=== PATIENT | female | born 1985 | race Caucasian/White ===

== ENCOUNTER → 2016-08-12 | Outpatient (REF) | payer OTHER, MEDICAID ==
[2016-08-12 12:43] LABS: BASO % 0.5 % (0.0-1.0); EOS # 0.2 K/mm3 (0.0-0.50); EOS % 2.5 % (0.0-3.0); LARGE UNSTAINED CELL # 0.1 K/mm3 (0.0-0.4); LARGE UNSTAINED CELL % 0.9 % (0.0-4.0); LYMPH # 1.7 K/mm3 (1.5-4.5); LYMPH % 16.7 % (24.0-44.0); MEAN CORPUSCULAR HEMOGLOBIN 29.5 pg (27.0-33.0); MEAN CORPUSCULAR HGB CONC 32.9 g/dl (32.0-36.5); MEAN CORPUSCULAR VOLUME 89.7 fl (80.0-96.0); MONO # 0.7 K/mm3 (0.0-0.8); MONO % 7.3 % (0.0-5.0); NEUTROPHILS % 72.1 % (36.0-66.0); PLATELET COUNT, AUTOMATED 251 k/mm3 (150-450); RED CELL DISTRIBUTION WIDTH 12.3 % (11.5-14.5); WHITE BLOOD COUNT 9.7 K/mm3 (4.0-10.0)
[2016-08-12 12:46] LABS: ALBUMIN 4.2 GM/DL (3.2-5.2); ALBUMIN/GLOBULIN RATIO 1.24 (1.00-1.93); ALKALINE PHOSPHATASE 77 U/L (45-117); ALT/SGPT 35 U/L (12-78); ANION GAP 8 MEQ/L (8-16); AST/SGOT 24 U/L (15-37); BILIRUBIN,TOTAL 0.2 MG/DL (0.2-1.0); BLOOD UREA NITROGEN 12 MG/DL (7-18); CALCIUM LEVEL 8.8 MG/DL (8.5-10.1); CARBON DIOXIDE LEVEL 27 MEQ/L (21-32); CHLORIDE LEVEL 104 MEQ/L (98-107); CHOLESTEROL LEVEL 205 MG/DL (<200); CREATININE FOR GFR 1.09 MG/DL (0.55-1.02); FREE T4 0.99 NG/DL (0.76-1.46); GLOMERULAR FILTRATION RATE > 60.0 (>60); GLUCOSE, FASTING 88 MG/DL (70-105); POTASSIUM SERUM 4.2 MEQ/L (3.5-5.1); SODIUM LEVEL 139 MEQ/L (136-145); TOTAL PROTEIN 7.6 GM/DL (6.4-8.2); TRIGLYCERIDES LEVEL 160 MG/DL (<150)
== END ==
LOC: M SFHCADAM 08:57
PROVIDERS: ATTEND Family Medicine
DX: R53.83 Other fatigue (principal); R73.01 Impaired fasting glucose; F32.9 Major depressive disorder, single episode, unspecified

== ENCOUNTER → 2017-08-20 | Outpatient (REF) | payer OTHER | LOC: M LAB REF 12:31 | DX: J02.9 Acute pharyngitis, unspecified (principal) ==

== ENCOUNTER 2017-11-14 10:43 | Emergency (ER) | payer OTHER, MEDICAID | END 2017-11-14 11:24 | disposition home or self-care (01) | LOC: M ED 10:43 | DX: S90.562A Insect bite (nonvenomous), left ankle, initial encounter (principal); W57.XXXA Bitten or stung by nonvenomous insect and other nonvenomous arthropods, initial encounter; Y92.099 Unspecified place in other non-institutional residence as the place of occurrence of the external cause; Y93.9 Activity, unspecified; Y99.9 Unspecified external cause status; J45.909 Unspecified asthma, uncomplicated; E28.2 Polycystic ovarian syndrome; Z72.0 Tobacco use; Z79.899 Other long term (current) drug therapy; Z88.8 Allergy status to other drugs, medicaments and biological substances | CPT/HCPCS: 99282 ==

== ENCOUNTER 2017-11-26 00:47 | Emergency (ER) | payer OTHER | END 2017-11-26 01:06 | disposition left against medical advice (07) | LOC: M ED 00:47 | DX: Z53.29 Procedure and treatment not carried out because of patient's decision for other reasons (principal) ==

== ENCOUNTER → 2017-12-01 | Outpatient (CLI) | payer OTHER, MEDICAID | LOC: M ADAMS 17:57 | DX: M25.571 Pain in right ankle and joints of right foot (principal) | CPT/HCPCS: 73610 ==

== ENCOUNTER → 2017-12-16 | Outpatient (CLI) | payer OTHER | LOC: M RAD 09:08 | DX: R10.11 Right upper quadrant pain (principal) | CPT/HCPCS: 76705 ==

== ENCOUNTER → 2017-12-29 | Outpatient (CLI) | payer OTHER, MEDICAID | LOC: M ADAMS 11:12 | DX: R05 Cough (principal) | CPT/HCPCS: 71046 ==

== ENCOUNTER → 2017-12-29 | Outpatient (REF) | payer OTHER, MEDICAID ==
[2017-12-29 12:36] LABS: BASO # 0.1 10^3/uL (0.0-0.2); BASO % 0.9 % (0.0-1.0); EOS # 0.3 10^3/uL (0.0-0.50); EOS % 2.9 % (0.0-3.0); HEMATOCRIT 39.7 % (36.0-47.0); HEMOGLOBIN 13.1 g/dl (12.0-15.5); IMMATURE GRANULOCYTE % 0.3 % (0-3.0); LYMPH # 2.4 10^3/uL (1.5-4.5); LYMPH % 27.2 % (24.0-44.0); MEAN CORPUSCULAR HEMOGLOBIN 29.3 pg (27.0-33.0); MEAN CORPUSCULAR VOLUME 88.8 fl (80.0-96.0); MONO # 0.6 10^3/uL (0.0-0.8); MONO % 6.6 % (0.0-5.0); NEUTROPHILS # 5.4 10^3/uL (1.8-7.7); NEUTROPHILS % 62.1 % (36.0-66.0); PLATELET COUNT, AUTOMATED 264 10^3/uL (150-450); RED BLOOD COUNT 4.47 10^6/uL (4.00-5.40); RED CELL DISTRIBUTION WIDTH 12.4 % (11.5-14.5); WHITE BLOOD COUNT 8.7 10^3/uL (4.0-10.0)
[2017-12-29 13:01] LABS: ALBUMIN 3.7 GM/DL (3.2-5.2); ALBUMIN/GLOBULIN RATIO 1.06 (1.00-1.93); ALKALINE PHOSPHATASE 62 U/L (45-117); ALT/SGPT 41 U/L (12-78); AMYLASE 48 U/L (25-115); ANION GAP 7 MEQ/L (8-16); AST/SGOT 22 U/L (7-37); BILIRUBIN,TOTAL 0.3 MG/DL (0.2-1.0); BLOOD UREA NITROGEN 11 MG/DL (7-18); CALCIUM LEVEL 8.7 MG/DL (8.5-10.1); CARBON DIOXIDE LEVEL 28 MEQ/L (21-32); CHLORIDE LEVEL 107 MEQ/L (98-107); CREATININE FOR GFR 1.01 MG/DL (0.55-1.30); GLOMERULAR FILTRATION RATE > 60.0 (>60); GLUCOSE, FASTING 87 MG/DL (70-100); LIPASE 116 U/L (73-393); POTASSIUM SERUM 4.1 MEQ/L (3.5-5.1); SODIUM LEVEL 142 MEQ/L (136-145); TOTAL PROTEIN 7.2 GM/DL (6.4-8.2)
[2017-12-29 13:32] LABS: ESTIMATED AVERAGE GLUCOSE 108 MG/DL (60-110); HEMOGLOBIN A1c 5.4 %
[2017-12-29 13:33] LABS: RUBELLA IgG QUALITATIVE IMMUNE (IMMUNE)
[2017-12-30 10:43] LABS: MUMPS VIRUS IgG ANTIBODY <9.0 AU/mL (Immune >10.9)
[2017-12-30 10:43] LABS: RUBEOLA IgG ANTIBODY <25.0 AU/mL (Immune >29.9)
== END ==
LOC: M SFHCADAM 11:08
DX: M89.8X1 Other specified disorders of bone, shoulder (principal); Z00.00 Encounter for general adult medical examination without abnormal findings

== ENCOUNTER → 2018-10-07 | Outpatient (REF) | payer OTHER, MEDICAID ==
[~2018-10-07] MED LIST: ADDE20CA3 PO; FLUO20CA19; METF500T13; NEUR300C PO; SPIR-10; VALA500T5; VELIPAK2; VENTAER
[2018-10-07 13:27] LABS: ALBUMIN 3.9 GM/DL (3.2-5.2); ALT/SGPT 34 U/L (12-78); BILIRUBIN,TOTAL 0.6 MG/DL (0.2-1.0); BLOOD UREA NITROGEN 15 MG/DL (7-18); CALCIUM LEVEL 8.9 MG/DL (8.5-10.1); CARBON DIOXIDE LEVEL 25 MEQ/L (21-32); CHLORIDE LEVEL 106 MEQ/L (98-107); CREATININE FOR GFR 0.99 MG/DL (0.55-1.30); FREE T4 1.12 NG/DL (0.76-1.46); GLOMERULAR FILTRATION RATE > 60.0 (>60); GLUCOSE, FASTING 80 MG/DL (70-100); POTASSIUM SERUM 4.1 MEQ/L (3.5-5.1); SODIUM LEVEL 140 MEQ/L (136-145); THYROID STIMULATING HORMONE 0.966 uIU/ML (0.358-3.740); TOTAL PROTEIN 7.2 GM/DL (6.4-8.2)
[2018-10-07 13:30] LABS: HEMOGLOBIN A1c 5.7 %
== END ==
LOC: M SFHCADAM 10:57
PROVIDERS: ATTEND Family Medicine
DX: E66.9 Obesity, unspecified (principal); F32.9 Major depressive disorder, single episode, unspecified

== ENCOUNTER → 2018-10-25 | Outpatient (CLI) | payer OTHER ==
--- NOTE | 2018-10-26 03:03 | REP ---
Clinical: Right shoulder pain . Technique: Internal rotation, external rotation, and Y view right shoulder . Findings: No acute fracture or dislocation. The acromioclavicular and glenohumeral joints are intact. No periarticular calcifications or degenerative changes are appreciated. Sub acromial space is normal. Surrounding soft tissues are unremarkable. Impression: Normal right shoulder radiographs. Electronically Signed by Yung Noel MD 10/26/2018 02:54 A
== END ==
LOC: M ADAMS 09:44
PROVIDERS: ATTEND Physician Assistant Medical
DX: M25.511 Pain in right shoulder (principal)

== ENCOUNTER → 2019-02-02 | Outpatient (REF) | payer OTHER, MEDICAID ==
[2019-02-02 19:24] LABS: AMORPHOUS SEDIMENT LARGE (NEGATIVE); APPEARANCE, URINE TURBID (CLEAR); BACTERIA, URINE AUTO NEGATIVE (NEGATIVE); BILIRUBIN, URINE AUTO NEGATIVE (NEGATIVE); BLOOD, URINE BLOOD NEGATIVE (NEGATIVE); COLOR, URINE YELLOW (YELLOW); GLUCOSE, URINE (UA) AUTO NEGATIVE (NEGATIVE); KETONE, URINE AUTO TRACE mg/dL (NEGATIVE); LEUKOCYTE ESTERASE, URINE AUTO 1+ (NEGATIVE); MUCUS, URINE LARGE (NEGATIVE); NITRITE, URINE AUTO NEGATIVE (NEGATIVE); PROTEIN, URINE AUTO NEGATIVE (NEGATIVE); RBC, URINE AUTO 0 /HPF (0-3); SPECIFIC GRAVITY URINE AUTO 1.027 (1.002-1.035); SQUAMOUS EPITHELIAL CELL UR AU 2 /HPF (0-6); UROBILINOGEN, URINE AUTO 0.2 mg/dL (0.0-2.0); WBC, URINE AUTO 2 /HPF (0-3)
== END ==
LOC: M LAB REF 18:31
PROVIDERS: ATTEND Physician Assistant
DX: M54.9 Dorsalgia, unspecified (principal)

== ENCOUNTER → 2019-02-03 | Outpatient (CLI) | payer OTHER ==
--- NOTE | 2019-02-03 12:12 | REP ---
CT of the abdomen and pelvis without IV and oral contrast: Comparison is the CT dated 07/18/2009. Additionally the patient also had renal ultrasound performed earlier today. There are at least two, and questionably three, calcifications medially in the left renal mid pole. Two of these calcifications appear immediately adjacent to one another. On the prior study there was a single calcification. There are no right renal calculi. There is no hydronephrosis on the right on the left. No renal masses are identified, however, the study is insensitive in the absence of IV contrast. No renal cysts are identified. The adrenals are unremarkable. The visualized lung brennan are unremarkable. The unenhanced hepatic parenchyma, gallbladder, pancreas, spleen, abdominal aorta, bowel and mesentery are unremarkable. Pelvis: There are appendicoliths. The appendix is otherwise unremarkable. There is no appendiceal inflammation or abscess. There is a 3.2 cm ovoid mass-like density in the right adnexa, possibly a complex cyst. Alternatively this could represent of the right ovary. The left adnexa is unremarkable. A followup pelvic ultrasound is recommended to differentiate a right adnexal cyst versus mass versus ovary. The bladder is unremarkable. There is no pelvic adenopathy or ascites. The pelvic bowel loops are unremarkable. Impression: There are nonobstructive left renal calculi as described. There is no hydronephrosis or hydroureter on the right on the left. The study is insensitive for renal masses in the absence of IV contrast. There are appendicoliths. There is no appendix inflammation or abscess. There is a 3.2 cm right adnexal mass. Bullet ultrasound is recommended to assist in differentiating cyst versus solid mass versus right ovary. The left adnexa is unremarkable. Electronically Signed by Ramos Gamble MD 02/03/2019 12:04 P
== END ==
LOC: M RAD 11:01
PROVIDERS: ATTEND Physician Assistant Medical
DX: N20.0 Calculus of kidney (principal)

== ENCOUNTER → 2019-02-03 | Outpatient (CLI) | payer OTHER ==
--- NOTE | 2019-02-03 10:36 | REP ---
REASON: Right flank pain. COMPARISON: None. Images of the right kidney obtained during gallbladder ultrasonography 12/16/2017 were reviewed. Right kidney measures 9.9 x 5.0 x 4.3 cm. The renal cortical echoes are unchanged. Cortical medullary differentiation is preserved. There are no cystic or solid masses. There is on hydronephrosis. Left kidney measures 10.5 x 4.4 x 5.3 cm. In the superior pole of the left kidney there is a small echogenic focus which measures 1.2 cm, but does not cast an acoustic shadow. Low level echoes are seen adjacent to this suggesting material within a calyx. There is on hydronephrosis. The renal cortical echoes are within normal limits. 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 Images of the urinary bladder were obtained solely to assess for uro-jet phenomena. These images show uro-jet phenomena bilaterally. No gross urinary bladder abnormalities were seen on these limited images. IMPRESSION: 1. Echogenic focus seen on superior pole of the left kidney as described above. 2. Suggestive evidence of renal sinus lipomatosis. 3. Consider followup with pre and postcontrast enhanced CT. Electronically Signed by Anupam Bartlett DO 02/03/2019 02:20 P
== END ==
LOC: M RAD 09:07
PROVIDERS: ATTEND Physician Assistant
DX: M54.9 Dorsalgia, unspecified (principal)

== ENCOUNTER → 2019-08-02 | Outpatient (REF) | payer OTHER, MEDICAID ==
[~2019-08-02] MED LIST changes: -FLUO20CA19; +FLUO20CA22
[2019-08-02 13:05] LABS: FREE T4 1.01 NG/DL (0.76-1.46); THYROID STIMULATING HORMONE 0.985 uIU/ML (0.358-3.740)
== END ==
LOC: M SFHCADAM 10:26
PROVIDERS: ATTEND Family Medicine
DX: E66.01 Morbid (severe) obesity due to excess calories (principal); Z68.37 Body mass index [BMI] 37.0-37.9, adult; L85.3 Xerosis cutis

== ENCOUNTER → 2019-12-01 | Outpatient (CLI) | payer OTHER ==
--- NOTE | 2019-12-01 10:16 | REP ---
Right upper quadrant sonography: History: Epigastric pain. Comparison study: Comparison CT study February 03, 2019. Findings: Scanning through the right upper quadrant of the abdomen demonstrates a normal sized, thin-walled gallbladder without evidence of stone or polyp. Common bile duct is normal measuring 5.4 cm in greatest diameter. No focal liver lesion is seen. Liver size is normal. No pancreatic abnormality is observed. No right renal abnormality is seen. There is no evidence of ascites. The right kidney measures 10.7 x 5.6 x 5.2 cm. Impression: Negative right upper quadrant sonography. Electronically Signed by Finn Marino MD 12/01/2019 10:08 A
--- NOTE | 2019-12-01 10:26 | REP ---
PELVIC SONOGRAPHY: HISTORY: Pelvic pain. PCOS. FINDINGS: Transabdominal and transvaginal scanning are performed. Uterine dimensions are normal at 8.2 x 4.5 x 6.6 cm. Endometrial echo is 1.2 cm thick. No focal uterine mass is seen. A Nabothian cyst is seen in the cervix. There is a trace fluid in the endometrium. Normal ovaries are seen bilaterally. Right ovary dimensions are 2.7 x 2.2 x 2.0 cm. Left ovary measures 3.1 x 1.9 x 3.1 cm. Doppler flow is present bilaterally. IMPRESSION: Unremarkable pelvic sonography. Electronically Signed by Finn Marino MD 12/01/2019 12:48 P
== END ==
LOC: M RAD 08:44
PROVIDERS: ATTEND Family Medicine
DX: R10.13 Epigastric pain (principal); R10.2 Pelvic and perineal pain

== ENCOUNTER → 2020-01-03 | Outpatient (CLI) | payer OTHER ==
--- NOTE | 2020-01-03 11:09 | REP ---
Hepatobiliary scan and gallbladder ejection fraction: History: However quadrant abdominal pain. Technique: 6.6 mCi of technetium-99m mebrofenin was injected and sequential anterior images are acquired. 65 minutes after the mebrofenin injection, the patient consumed 8 ounces Ensure and an additional 60 minutes of imaging was acquired. Regions of interest are plotted around the gallbladder. Findings: The initial hepatocellular parenchymal uptake phase is normal and homogeneous. Intra- and extra-hepatic bile ducts are labeled by the 10 -minute image. The gallbladder is first labeled on the 10 -minute image. There is normal washout from the liver parenchyma into the gallbladder and small intestine on subsequent images. The gallbladder ejection fraction is 61 %. Values greater than 35 % are considered normal with this technique. Impression: Normal hepatobiliary scan and normal gallbladder ejection fraction. Electronically Signed by Finn Marino MD 01/03/2020 11:00 A
== END ==
LOC: M RAD 08:01
PROVIDERS: ATTEND Family Medicine
DX: R10.11 Right upper quadrant pain (principal)
CPT/HCPCS: 78227; A9537

== ENCOUNTER 2020-04-29 09:37 | Emergency (ER) | payer OTHER ==
[~2020-04-29] VITALS: Ht 162.6 cm; Wt 97.8 kg
--- NOTE | 2020-04-29 10:28 | ECGEPIP ---
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
--- NOTE | 2020-04-29 11:37 | REP ---
INDICATION: CVA. COMPARISON: 06/21/2009 TECHNIQUE: SINGLE PORTABLE AP VIEW OF THE CHEST WAS PERFORMED. FINDINGS: THERE IS NO ACUTE INFILTRATE OR PULMONARY EDEMA. LUNGS ARE CLEAR. HEART IS NOT SIGNIFICANTLY ENLARGED. MEDIASTINAL SILHOUETTE IS UNREMARKABLE. THE VISUALIZED OSSEOUS STRUCTURES ARE INTACT. IMPRESSION: NO ACUTE PULMONARY DISEASE. <Electronically signed by Ramos Ramsey > 04/29/20 [id number]
--- NOTE | 2020-04-29 11:49 | REPVR ---
PROCEDURE INFORMATION: Exam: CT Head Without Contrast Exam date and time: 04/29/2020 11:30 AM Age: 34 years old Clinical indication: Numbness / parasthesia; Bilateral; Additional info: Hand and face numbness TECHNIQUE: Imaging protocol: Computed tomography of the head without contrast. Radiation optimization: All CT scans at this facility use at least one of these dose optimization techniques: automated exposure control; mA and/or kV adjustment per patient size (includes targeted exams where dose is matched to clinical indication); or iterative reconstruction. COMPARISON: No relevant prior studies available. FINDINGS: Brain: Normal. No hemorrhage. Unremarkable white matter. No mass effect. Cerebral ventricles: No ventriculomegaly. Bones/joints: Unremarkable. No acute fracture. Paranasal sinuses: Visualized sinuses are unremarkable. No fluid levels. Mastoid air cells: Visualized mastoid air cells are well aerated. Soft tissues: Unremarkable. IMPRESSION: No acute intracranial abnormality. If an acute infarct is clinically suspected, consider MRI with diffusion imaging. Electronically signed by: Migel Rosas On 04/29/2020 11:49:16 AM
--- NOTE | 2020-04-29 11:52 | REPVR ---
PROCEDURE INFORMATION: Exam: CT Cervical Spine Without Contrast Exam date and time: 04/29/2020 11:30 AM Age: 34 years old Clinical indication: Injury or trauma; Other: Lifting heavy furniture; Sprain or strain, cervical ligaments TECHNIQUE: Imaging protocol: Computed tomography images of the cervical spine without contrast. Radiation optimization: All CT scans at this facility use at least one of these dose optimization techniques: automated exposure control; mA and/or kV adjustment per patient size (includes targeted exams where dose is matched to clinical indication); or iterative reconstruction. COMPARISON: No relevant prior studies available. FINDINGS: Bones/joints: No acute fracture. Normal alignment. Discs/Spinal canal/Neural foramina: No significant disc protrusion. No severe spinal canal stenosis. No significant neural foraminal narrowing. Soft tissues: Unremarkable. Lungs: Lung apices are normal. IMPRESSION: No acute findings. Electronically signed by: Migel Rosas On 04/29/2020 11:52:41 AM
[2020-04-29 12:06] LABS: BASO # 0.1 10^3/uL (0.0-0.2); BASO % 0.7 % (0.0-1.0); EOS # 0.1 10^3/uL (0.0-0.5); EOS % 1.3 % (0.0-3.0); HEMATOCRIT 41.4 % (36.0-47.0); HEMOGLOBIN 13.2 g/dl (12.0-15.5); LYMPH # 2.4 10^3/uL (1.5-5.0); LYMPH % 25.8 % (24.0-44.0); MEAN CORPUSCULAR HEMOGLOBIN 29.1 pg (27.0-33.0); MEAN CORPUSCULAR HGB CONC 31.9 g/dl (32.0-36.5); MEAN CORPUSCULAR VOLUME 91.2 fl (80.0-96.0); MONO # 0.5 10^3/uL (0.0-0.8); MONO % 5.5 % (0.0-5.0); NEUTROPHILS # 6.1 10^3/uL (1.5-8.5); NEUTROPHILS % 66.5 % (36.0-66.0); PLATELET COUNT, AUTOMATED 311 10^3/uL (150-450); RED BLOOD COUNT 4.54 10^6/uL (4.00-5.40); WHITE BLOOD COUNT 9.1 10^3/uL (4.0-10.0)
[2020-04-29 12:17] LABS: INR 0.94; PARTIAL THROMBOPLASTIN TIME 25.7 SECONDS (24.2-38.5); PROTHROMBIN TIME 12.8 SECONDS (12.5-14.3)
[2020-04-29] MEDS ORDERED: ISOVUE-370 76% 100ML VIAL As Ordered ONE (13:44)
[2020-04-29 13:53] LABS: ALBUMIN 4.1 GM/DL (3.2-5.2); ALT/SGPT 52 U/L (12-78); BILIRUBIN,DIRECT < 0.1 MG/DL (0.0-0.2); BILIRUBIN,TOTAL 0.3 MG/DL (0.2-1.0); BLOOD UREA NITROGEN 10 MG/DL (7-18); CALCIUM LEVEL 9.3 MG/DL (8.5-10.1); CARBON DIOXIDE LEVEL 26 MEQ/L (21-32); CHLORIDE LEVEL 108 MEQ/L (98-107); CK-MB VALUE MASS 4.8 NG/ML (<3.6); CPK CREATINE PHOSPHOKINASE 1392 U/L (26-192); CREATININE FOR GFR 1.09 MG/DL (0.55-1.30); GLOMERULAR FILTRATION RATE > 60.0 (>60); GLUCOSE, FASTING 90 MG/DL (70-100); HCG, SERUM QUANTITATIVE < 1.0 MIU/ML; MB/CK RELATIVE INDEX 0.34 (< OR =4); NT-PRO BNP 365 PG/ML (<125); POTASSIUM SERUM 3.8 MEQ/L (3.5-5.1); SODIUM LEVEL 140 MEQ/L (136-145); TOTAL PROTEIN 7.7 GM/DL (6.4-8.2); TROPONIN I < 0.02 NG/ML (< 0.10)
--- NOTE | 2020-04-29 14:29 | REPVR ---
PROCEDURE INFORMATION: Exam: CT Angiography Neck With Contrast Exam date and time: 04/29/2020 1:48 PM Age: 34 years old Clinical indication: Numbness; Additional info: Parasthesia TECHNIQUE: Imaging protocol: Computed tomography angiography of the neck with intravenous contrast. 3D rendering (Not supervised by radiologist): MIP and/or 3D reconstructed images were created by the technologist. Radiation optimization: All CT scans at this facility use at least one of these dose optimization techniques: automated exposure control; mA and/or kV adjustment per patient size (includes targeted exams where dose is matched to clinical indication); or iterative reconstruction. Contrast material: ISOVUE 370; Contrast volume: 100 ml; Contrast route: INTRAVENOUS (IV); COMPARISON: CT Spine,cervical w/o contrast 04/29/2020 11:20 AM FINDINGS: Right common carotid artery: No stenosis. No dissection or occlusion. Right internal carotid artery: No stenosis of the extracranial segment. No dissection or occlusion. Right external carotid artery: No occlusion or stenosis of the origin. Right vertebral artery: No stenosis. No dissection or occlusion. Left common carotid artery: No stenosis. No dissection or occlusion. Left internal carotid artery: No stenosis of the extracranial segment. No dissection or occlusion. Left external carotid artery: No occlusion or stenosis of the origin. Left vertebral artery: No stenosis. No dissection or occlusion. Bones/joints: No acute fracture. Soft tissues: Normal. No significant soft tissue swelling. IMPRESSION: No stenosis or occlusion. REFERENCES: NASCET CRITERIA. The degree of internal carotid artery stenosis is based on NASCET criteria. Normal is no stenosis. Mild is less than 50% stenosis. Moderate is 50-69% stenosis. Severe is 70% to 99% stenosis. Total occlusion is no detectable patent lumen. Electronically signed by: Migel Rosas On 04/29/2020 14:29:36 PM
--- NOTE | 2020-04-29 14:33 | REPVR ---
PROCEDURE INFORMATION: Exam: CT Angiography Head With Contrast Exam date and time: 04/29/2020 1:48 PM Age: 34 years old Clinical indication: Numbness; Additional info: Parasthesia TECHNIQUE: Imaging protocol: Computed tomography angiography of the head with intravenous contrast. 3D rendering (Not supervised by radiologist): MIP and/or 3D reconstructed images were created by the technologist. Radiation optimization: All CT scans at this facility use at least one of these dose optimization techniques: automated exposure control; mA and/or kV adjustment per patient size (includes targeted exams where dose is matched to clinical indication); or iterative reconstruction. Contrast material: ISOVUE 370; Contrast volume: 100 ml; Contrast route: INTRAVENOUS (IV); COMPARISON: CT Head without contrast 04/29/2020 11:20 AM FINDINGS: ANTERIOR CIRCULATION: Right internal carotid artery: Unremarkable. Intracranial segment is patent with no significant stenosis. No aneurysm. Right middle cerebral artery: Unremarkable. No occlusion or significant stenosis. No aneurysm. Right anterior cerebral artery: Unremarkable. No occlusion or significant stenosis. No aneurysm. Left internal carotid artery: Unremarkable. Intracranial segment is patent with no significant stenosis. No aneurysm. Left middle cerebral artery: Unremarkable. No occlusion or significant stenosis. No aneurysm. Left anterior cerebral artery: Unremarkable. No occlusion or significant stenosis. No aneurysm. POSTERIOR CIRCULATION: Right vertebral artery: Unremarkable. No occlusion or significant stenosis. No aneurysm. Left vertebral artery: Unremarkable. No occlusion or significant stenosis. No aneurysm. Basilar artery: Unremarkable. No occlusion or significant stenosis. No aneurysm. Right posterior cerebral artery: Unremarkable. No occlusion or significant stenosis. No aneurysm. Left posterior cerebral artery: Unremarkable. No occlusion or significant stenosis. No aneurysm. Brain: No definite mass, mass effect, or midline shift. Cerebral ventricles: Normal. No ventriculomegaly. Bones/joints: Unremarkable. No acute fracture. Soft tissues: Unremarkable. IMPRESSION: No large vessel stenosis or occlusion. Electronically signed by: Migel Rsoas On 04/29/2020 14:33:12 PM
--- NOTE | 2020-04-29 15:29 | REPVR ---
PROCEDURE INFORMATION: Exam: MR Head Without Contrast Exam date and time: 04/29/2020 3:05 PM Age: 34 years old Clinical indication: Weakness, extremity; Left; Additional info: Parasthesia TECHNIQUE: Imaging protocol: MR of the head without contrast. COMPARISON: CT Head without contrast 04/29/2020 11:20 AM FINDINGS: Brain: There is a suspected vascular lesion in the left cerebellum. This is not fully characterized on this noncontrast exam. Differential diagnosis includes developmental venous anomaly, less likely AVM. Cerebral ventricles: Normal. No ventriculomegaly. Bones/joints: Unremarkable. Paranasal sinuses: Normal as visualized. No acute sinusitis. Mastoid air cells: Normal as visualized. No mastoid effusion. Orbits: Unremarkable. Soft tissues: Unremarkable. IMPRESSION: There is a suspected vascular lesion in the left cerebellum. This is not fully characterized on this noncontrast exam. Differential diagnosis includes developmental venous anomaly, less likely AVM. Follow-up postcontrast MRI is recommended. No acute infarct is identified. Electronically signed by: Migel Rosas On 04/29/2020 15:29:29 PM
--- NOTE | 2020-04-29 15:32 | REPVR ---
PROCEDURE INFORMATION: Exam: MR Cervical Spine Without Contrast Exam date and time: 04/29/2020 3:05 PM Age: 34 years old Clinical indication: Weakness; Additional info: Parasthesia TECHNIQUE: Imaging protocol: Multiplanar magnetic resonance images of the cervical spine without contrast. COMPARISON: CT Spine,cervical w/o contrast 04/29/2020 11:20 AM FINDINGS: Vertebrae: Unremarkable. Spinal cord: Normal signal. No cord compression. C2-C3: No significant disc disease. No significant spinal stenosis. C3-C4: There is disc desiccation. There is mild disc bulging. C4-C5: There is disc desiccation. There is mild disc bulging. C5-C6: There is disc desiccation. There is a moderate disc bulge with a superimposed broad-based central disc herniation. C6-C7: No significant disc disease. No significant spinal stenosis. C7-T1: No significant disc disease. No significant spinal stenosis. IMPRESSION: Mild degenerative changes as described above. Normal appearance of the cervical cord. Electronically signed by: Migel Rosas On 04/29/2020 15:32:36 PM
[2020-04-29] MEDS ORDERED: dexameTHASONE 4 MG/ML 1ML VIAL (J1100 PER 1MG) IV ONE (16:15)
[2020-04-29] MEDS ORDERED: NS 1,000 ML IV ONE (16:15)
[2020-04-29] MEDS ORDERED: KETOROLAC 30 MG/ML 1ML VIAL IV ONE (16:15)
[2020-04-29] MEDS ORDERED: METOCLOPRAMIDE INJ 10MG/2ML VIAL (J2765 PER 1) IV ONE (16:15)
[2020-04-29 17:04] LABS: CK-MB VALUE MASS 3.7 NG/ML (<3.6); CPK CREATINE PHOSPHOKINASE 747 U/L (26-192); TROPONIN I < 0.02 NG/ML (< 0.10)
[2020-04-29 17:31] VITALS: BP 117/54
--- NOTE | 2020-05-01 10:31 | ED PDOC ---
Post-Departure Follow-Up mri brain faxed to dr bragg and dr keita for fu Yamila Campos MD May 01, 2020 10:31
== END 2020-04-29 18:29 | disposition home or self-care (01) ==
LOC: M ED 09:37
DX: R20.2 Paresthesia of skin (principal); G43.809 Other migraine, not intractable, without status migrainosus; M62.82 Rhabdomyolysis; E28.2 Polycystic ovarian syndrome; M50.222 Other cervical disc displacement at C5-C6 level; M50.221 Other cervical disc displacement at C4-C5 level; M50.21 Other cervical disc displacement, high cervical region; F17.200 Nicotine dependence, unspecified, uncomplicated; Z88.8 Allergy status to other drugs, medicaments and biological substances
CPT/HCPCS: 70450; 70496; 70498; 70551; 71045; 72125; 72141; 80047; 80048; 80076; 82550; 82553; 83519; 83880; 84702; 85025; 85610; 85730; 86850; 86900; 86901; 93005; 93041; 94760; 96361; 96374; 96375; 99285; J1100; J1885; J2765; Q9967

== ENCOUNTER → 2020-05-22 | Outpatient (CLI) | payer SELFPAY | LOC: M LABSMTC 13:17 | PROVIDERS: ATTEND Pediatrics | DX: Z11.59 Encounter for screening for other viral diseases (principal) ==

== ENCOUNTER → 2020-08-10 | Outpatient (CLI) | payer OTHER | LOC: M LABSMTC 09:57 | PROVIDERS: ATTEND Student in an Organized Health Care Education/Training Program | DX: Z11.52 Encounter for screening for COVID-19 (principal) ==

== ENCOUNTER → 2020-09-02 | Outpatient (REF) | payer OTHER ==
[2020-09-02 13:12] LABS: BASO # 0.1 10^3/uL (0.0-0.2); BASO % 0.8 % (0.0-1.0); EOS # 0.2 10^3/uL (0.0-0.5); EOS % 1.8 % (0.0-3.0); HEMOGLOBIN 13.7 g/dl (12.0-15.5); LYMPH # 2.6 10^3/uL (1.5-5.0); LYMPH % 25.9 % (24.0-44.0); MEAN CORPUSCULAR HEMOGLOBIN 29.5 pg (27.0-33.0); MEAN CORPUSCULAR HGB CONC 32.6 g/dl (32.0-36.5); MEAN CORPUSCULAR VOLUME 90.5 fl (80.0-96.0); MONO # 0.7 10^3/uL (0.0-0.8); MONO % 6.8 % (2.0-8.0); NEUTROPHILS # 6.5 10^3/uL (1.5-8.5); NEUTROPHILS % 64.2 % (36.0-66.0); PLATELET COUNT, AUTOMATED 291 10^3/uL (150-450); RED BLOOD COUNT 4.64 10^6/uL (4.00-5.40); URINE PREG TEST NEGATIVE (NEGATIVE); WHITE BLOOD COUNT 10.1 10^3/uL (4.0-10.0)
[2020-09-02 13:13] LABS: APPEARANCE, URINE CLEAR (CLEAR); BACTERIA, URINE AUTO NEGATIVE (NEGATIVE); BILIRUBIN, URINE AUTO NEGATIVE (NEGATIVE); BLOOD, URINE BLOOD 1+ (NEGATIVE); COLOR, URINE YELLOW (YELLOW); GLUCOSE, URINE (UA) AUTO NEGATIVE (NEGATIVE); KETONE, URINE AUTO NEGATIVE (NEGATIVE); LEUKOCYTE ESTERASE, URINE AUTO NEGATIVE (NEGATIVE); NITRITE, URINE AUTO NEGATIVE (NEGATIVE); PROTEIN, URINE AUTO NEGATIVE (NEGATIVE); RBC, URINE AUTO 1 /HPF (0-3); SPECIFIC GRAVITY URINE AUTO 1.008 (1.002-1.035); SQUAMOUS EPITHELIAL CELL UR AU 1 /HPF (0-6); UROBILINOGEN, URINE AUTO 0.2 mg/dL (0.0-2.0); WBC, URINE AUTO 1 /HPF (0-3)
[2020-09-02 13:14] LABS: ALT/SGPT 39 U/L (12-78); BILIRUBIN,TOTAL 0.2 MG/DL (0.2-1.0); BLOOD UREA NITROGEN 15 MG/DL (7-18); CALCIUM LEVEL 9.2 MG/DL (8.5-10.1); CARBON DIOXIDE LEVEL 24 MEQ/L (21-32); CHLORIDE LEVEL 106 MEQ/L (98-107); CREATININE FOR GFR 0.99 MG/DL (0.55-1.30); GLOMERULAR FILTRATION RATE > 60.0 (>60); GLUCOSE, FASTING 89 MG/DL (70-100); POTASSIUM SERUM 4.1 MEQ/L (3.5-5.1); SODIUM LEVEL 138 MEQ/L (136-145); TOTAL PROTEIN 7.6 GM/DL (6.4-8.2)
[2020-09-02 13:22] LABS: INR 0.89; PROTHROMBIN TIME 12.2 SECONDS (12.5-14.3)
== END ==
LOC: M SFHCADAM 09:56
PROVIDERS: ATTEND Family Medicine
DX: Z01.818 Encounter for other preprocedural examination (principal)

== ENCOUNTER → 2020-09-04 | Outpatient (CLI) | payer OTHER | LOC: M LABSMTC 09:37 | PROVIDERS: ATTEND Neurological Surgery | DX: Q28.2 Arteriovenous malformation of cerebral vessels (principal) ==

== ENCOUNTER 2020-10-13 10:41 | Emergency (ER) | payer OTHER ==
[~2020-10-13] VITALS: Ht 162.6 cm; Wt 93.2 kg
[2020-10-13] MEDS ORDERED: VERA40TA (10:53)
[2020-10-13] MEDS ORDERED: ANUS2.5C2 TOP (12:02)
[2020-10-13] MEDS ORDERED: DIBU28OI2 TOP (12:05)
[2020-10-13] MEDS ORDERED: IBUPROFEN 800 MG TAB PO ONE (12:05)
[2020-10-13 12:19] VITALS: BP 158/70
== END 2020-10-13 12:20 | disposition home or self-care (01) ==
LOC: M ED 10:41
DX: K64.4 Residual hemorrhoidal skin tags (principal); E28.2 Polycystic ovarian syndrome; J45.909 Unspecified asthma, uncomplicated; Z79.899 Other long term (current) drug therapy

== ENCOUNTER → 2020-10-21 | Outpatient (CLI) | payer OTHER ==
[~2020-10-21] MED LIST changes: +ANUS2.5C2 TOP; +DIBU28OI2 TOP; +VERA40TA
== END ==
LOC: M LABSMTC 14:02
PROVIDERS: ATTEND Student in an Organized Health Care Education/Training Program
DX: Z11.52 Encounter for screening for COVID-19 (principal)

== ENCOUNTER 2020-11-15 21:50 | Emergency (ER) | payer OTHER ==
[~2020-11-15] VITALS: Ht 162.6 cm; Wt 100.0 kg
[2020-11-15] MEDS ORDERED: ONDANSETRON 4MG/2ML VIAL IV ONE (22:20)
[2020-11-15] MEDS: MORPHINE 4 MG/ML 1ML VIAL/SYRINGE (J2270) IV PRN ×2 (22:36→23:15)
--- NOTE | 2020-11-15 22:37 | REPVR ---
PROCEDURE INFORMATION: Exam: CT Head Without Contrast Exam date and time: 11/15/2020 10:08 PM Age: 34 years old Clinical indication: Weakness, extremity; Right; Additional info: Stroke symptoms TECHNIQUE: Imaging protocol: Computed tomography of the head without contrast. Radiation optimization: All CT scans at this facility use at least one of these dose optimization techniques: automated exposure control; mA and/or kV adjustment per patient size (includes targeted exams where dose is matched to clinical indication); or iterative reconstruction. Other technique: STROKE PROTOCOL was implemented. COMPARISON: 1. CT Head without contrast 2020-04-29 11:[address] ANGIO HEAD 2020-04-29 13:42 FINDINGS: Brain: Embolization material within the left lateral posterior fossa and secondary artifact. No cerebral hemorrhage. No definite loss of munguia-white differentiation to suggest acute ischemia or infarction. Cerebral ventricles: No ventriculomegaly. Paranasal sinuses: Visualized sinuses are unremarkable. No fluid levels. Mastoid air cells: Visualized mastoid air cells are well aerated. Bones/joints: Unremarkable. No acute fracture. Soft tissues: Unremarkable. IMPRESSION: 1. [place] Stroke Program Early CT Score (ASPECTS) = 10. 2. No cerebral hemorrhage. No definite loss of munguia-white differentiation to suggest acute ischemia or infarction. Electronically signed by: Lexa Clemons On 11/15/2020 22:36:49 PM
[2020-11-15] MEDS ORDERED: METF500T13 (22:43)
[2020-11-15] MEDS ORDERED: SPIR-10 (22:43)
[2020-11-15] MEDS ORDERED: GABA600T4 (22:43)
[2020-11-15 22:54] LABS: BASO # 0.1 10^3/uL (0.0-0.2); BASO % 0.8 % (0.0-1.0); EOS # 0.3 10^3/uL (0.0-0.5); EOS % 2.3 % (0.0-3.0); HEMATOCRIT 38.4 % (36.0-47.0); LYMPH # 3.4 10^3/uL (1.5-5.0); LYMPH % 27.6 % (24.0-44.0); MEAN CORPUSCULAR HEMOGLOBIN 28.7 pg (27.0-33.0); MEAN CORPUSCULAR HGB CONC 31.3 g/dl (32.0-36.5); MEAN CORPUSCULAR VOLUME 91.9 fl (80.0-96.0); MONO # 0.9 10^3/uL (0.0-0.8); MONO % 7.5 % (2.0-8.0); NEUTROPHILS # 7.6 10^3/uL (1.5-8.5); NEUTROPHILS % 60.5 % (36.0-66.0); PLATELET COUNT, AUTOMATED 297 10^3/uL (150-450); RED BLOOD COUNT 4.18 10^6/uL (4.00-5.40); WHITE BLOOD COUNT 12.5 10^3/uL (4.0-10.0)
[2020-11-15 22:58] LABS: INR 0.81; PROTHROMBIN TIME 11.3 SECONDS (12.5-14.3)
[2020-11-15 22:59] LABS: PARTIAL THROMBOPLASTIN TIME 22.8 SECONDS (24.2-38.5)
[2020-11-15 23:25] LABS: BLOOD UREA NITROGEN 18 MG/DL (7-18); CALCIUM LEVEL 9.7 MG/DL (8.5-10.1); CARBON DIOXIDE LEVEL 28 MEQ/L (21-32); CHLORIDE LEVEL 103 MEQ/L (98-107); CREATININE FOR GFR 1.01 MG/DL (0.55-1.30); ETHYL ALCOHOL (ETHANOL) 0.005 % (0.000-0.010); GLOMERULAR FILTRATION RATE > 60.0 (>60); GLUCOSE, FASTING 131 MG/DL (70-100); POTASSIUM SERUM 4.4 MEQ/L (3.5-5.1); SODIUM LEVEL 139 MEQ/L (136-145)
--- NOTE | 2020-11-16 00:33 | REPVR ---
PROCEDURE INFORMATION: Exam: MRA Head Without Contrast; Arteriography Exam date and time: 11/16/2020 12:04 AM Age: 34 years old Clinical indication: Pain; Headache; Prior surgery; Surgery date: 1-6 months; Surgery type: Avm embolization; Additional info: Severe CONTRERAS, recent hemorrhagic CVA with coiling TECHNIQUE: Imaging protocol: Magnetic resonance angiography head without contrast. Exam focused on the arteries. COMPARISON: 1. CT ANGIO HEAD 2020-04-29 13:42 2. MRI-Brain without Contrast 2020-04-29 14:20 FINDINGS: ANTERIOR CIRCULATION: Right internal carotid artery: Intracranial segment is patent with no significant stenosis. No aneurysm. Right middle cerebral artery: No occlusion or significant stenosis. No aneurysm. Right anterior cerebral artery: No occlusion or significant stenosis. No aneurysm. Left internal carotid artery: Intracranial segment is patent with no significant stenosis. No aneurysm. Left middle cerebral artery: No occlusion or significant stenosis. No aneurysm. Left anterior cerebral artery: No occlusion or significant stenosis. No aneurysm. POSTERIOR CIRCULATION: Right vertebral artery: No occlusion or significant stenosis. No aneurysm. Left vertebral artery: No occlusion or significant stenosis. No aneurysm. Basilar artery: No occlusion or significant stenosis. No aneurysm. Right posterior cerebral artery: No occlusion or significant stenosis. No aneurysm. Left posterior cerebral artery: Embolization material within the left lateral posterior fossa. 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 Other vasculature: Evidence for some residual flow within the arteriovenous malformation. Other findings: Intrinsic T1 shortening within the left midbrain on series 301, image 1, question artifact versus intrinsic T1 shortening/blood products. IMPRESSION: 1. No acute arterial stenosis or occlusion. 2. Embolization material within the left lateral posterior fossa. 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 Evidence for some residual flow within the arteriovenous malformation. 3. Intrinsic T1 shortening within the left midbrain on series 301, image 1, question artifact versus intrinsic T1 shortening/blood products. Suspect artifact given its absence on the recent CT from 1 hour prior. Electronically signed by: Lexa Clemons On 11/16/2020 00:32:58 AM
--- NOTE | 2020-11-16 00:44 | REPVR ---
PROCEDURE INFORMATION: Exam: MR Head Without Contrast Exam date and time: 11/15/2020 12:03 AM Age: 34 years old Clinical indication: Pain; Headache not specified; Prior surgery; Surgery date: 1-6 months; Additional info: Severe CONTRERAS, recent hemorrhagic CVA with coiling TECHNIQUE: Imaging protocol: MR of the head without contrast. COMPARISON: 1. MRI-Brain without Contrast 2020-04-29 14: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 Intrinsic T1 shortening within the left midbrain and periaqueductal munguia matter with corresponding diffusion signal. T2 signal hyperintensity within the left midbrain measures approximately 10 x 13 x 17 mm. Suspect a small left midbrain parenchymal hemorrhage or hemorrhagic infarct. Recommend repeat CT. Susceptibility artifact in the left hemicerebellum corresponding to embolization material. Cerebral ventricles: Normal. No ventriculomegaly. Bones/joints: Unremarkable. Paranasal sinuses: Normal as visualized. No acute sinusitis. Mastoid air cells: Normal as visualized. No mastoid effusion. Orbital cavity: Unremarkable. Soft tissues: Unremarkable. Other vasculature: There is some residual vascular flow voids corresponding to the region of arteriovenous malformation, evidence of some residual flow. Mild T2 signal hyperintensity surrounding the arteriovenous malformation likely reflects some chronic gliosis and some minimal postop edema. IMPRESSION: 1. 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 Residual vascular flow voids corresponding to the region of arteriovenous malformation, evidence of some residual flow. 2. Intrinsic T1 shortening within the left midbrain and periaqueductal munguia matter with corresponding diffusion signal. T2 signal hyperintensity within the left midbrain measures approximately 10 x 13 x 17 mm. Suspect a small left midbrain parenchymal hemorrhage or hemorrhagic infarct. Recommend repeat CT. 3. Susceptibility artifact in the left hemicerebellum corresponding to embolization material. Mild T2 signal hyperintensity surrounding the arteriovenous malformation likely reflects some chronic gliosis and some minimal postop edema. Electronically signed by: Lexa Clemons On 11/16/2020 00:43:44 AM
[2020-11-16 02:15] VITALS: BP 145/68
[2020-11-16 02:26] LABS: RSV AMPLIFICATION NEGATIVE (NEGATIVE)
== END 2020-11-16 02:29 | disposition short-term general hospital (02) ==
LOC: M ED 21:50
DX: I61.8 Other nontraumatic intracerebral hemorrhage (principal); Z86.73 Personal history of transient ischemic attack (TIA), and cerebral infarction without residual deficits; E28.2 Polycystic ovarian syndrome; F43.10 Post-traumatic stress disorder, unspecified; F17.200 Nicotine dependence, unspecified, uncomplicated; Z88.8 Allergy status to other drugs, medicaments and biological substances; Z79.899 Other long term (current) drug therapy
CPT/HCPCS: 70450; 70544; 70551; 80048; 82077; 85025; 85610; 85730; 87631; 96374; 96375; 99285; J2270; J2405

== ENCOUNTER 2020-11-22 14:25 | Emergency (ER) | payer OTHER ==
[~2020-11-22] VITALS: Ht 162.6 cm; Wt 106.8 kg
[~2020-11-22 14:25] MED LIST changes: +GABA600T4
[2020-11-22 14:26] VITALS: BP 139/95
[2020-11-22] MEDS ORDERED: FIOR1CAP PO (14:43)
[2020-11-22] MEDS ORDERED: GABA-283 PO (14:43)
[2020-11-22] MEDS ORDERED: EMGA120I INJ (14:43)
[2020-11-22 15:10] LABS: BASO # 0.1 10^3/uL (0.0-0.2); EOS # 0.3 10^3/uL (0.0-0.5); EOS % 2.5 % (0.0-3.0); HEMATOCRIT 38.7 % (36.0-47.0); HEMOGLOBIN 12.4 g/dl (12.0-15.5); LYMPH # 2.5 10^3/uL (1.5-5.0); LYMPH % 22.9 % (24.0-44.0); MEAN CORPUSCULAR VOLUME 90.6 fl (80.0-96.0); MONO # 0.7 10^3/uL (0.0-0.8); MONO % 6.3 % (2.0-8.0); NEUTROPHILS # 7.3 10^3/uL (1.5-8.5); NEUTROPHILS % 66.3 % (36.0-66.0); PLATELET COUNT, AUTOMATED 287 10^3/uL (150-450); RED BLOOD COUNT 4.27 10^6/uL (4.00-5.40)
[2020-11-22 15:38] LABS: ALBUMIN 3.5 GM/DL (3.2-5.2); ALT/SGPT 87 U/L (12-78); BILIRUBIN,DIRECT < 0.1 MG/DL (0.0-0.2); BILIRUBIN,TOTAL 0.2 MG/DL (0.2-1.0); BLOOD UREA NITROGEN 16 MG/DL (7-18); CALCIUM LEVEL 8.5 MG/DL (8.5-10.1); CARBON DIOXIDE LEVEL 28 MEQ/L (21-32); CHLORIDE LEVEL 104 MEQ/L (98-107); CREATININE FOR GFR 0.94 MG/DL (0.55-1.30); GLOMERULAR FILTRATION RATE > 60.0 (>60); GLUCOSE, FASTING 129 MG/DL (70-100); POTASSIUM SERUM 3.8 MEQ/L (3.5-5.1); SODIUM LEVEL 137 MEQ/L (136-145); TOTAL PROTEIN 7.9 GM/DL (6.4-8.2)
--- NOTE | 2020-11-22 18:56 | REP ---
INDICATION: swelling. COMPARISON: None. TECHNIQUE: Right upper extremity duplex venous sonography. FINDINGS: The internal jugular, axillary, brachial, basilic, and cephalic veins are anechoic and compressible in the right upper extremity. Color flow imaging is homogeneous. Spectral Doppler interrogation is unremarkable. Venous spectral Doppler waveforms are recorded in the proximal right and left subclavian veins. There is symmetric normal pulsatility and respiratory phasicity. There is no evidence of right upper extremity venous thrombosis. IMPRESSION: Negative right upper extremity duplex venous ultrasound. No evidence of venous thrombosis. <Electronically signed by Bertrand Marino > 11/22/20 [id number]
--- NOTE | 2020-11-22 18:58 | REP ---
INDICATION: swelling. COMPARISON: None. TECHNIQUE: Bilateral lower extremity duplex venous scanning is performed from the groin to the ankle level. FINDINGS: The deep veins are anechoic and fully compressible from the groin to the popliteal fossa in the left and right lower extremity. Color flow imaging is homogeneous. Spectral Doppler interrogation demonstrates intact respiratory variation in flow and normal manual augmentation of flow. There is no evidence of deep vein thrombosis in the femoropopliteal veins. There is no evidence of deep vein thrombosis in the visualized calf veins. The right peroneal vein could not be seen. IMPRESSION: No evidence of DVT in the femoropopliteal veins. No DVT in the visible portions of the calf veins. <Electronically signed by Bertrand Marino > 11/22/20 [id number]
[2020-11-22] MEDS ORDERED: ALBUTEROL 90 MCG/ACT 8GM HFA INHALER INH ONE (19:15)
[2020-11-22] MEDS ORDERED: CYMB1CAP4 PO (19:52)
== END 2020-11-22 20:21 | disposition home or self-care (01) ==
LOC: M ED 14:25
DX: G50.1 Atypical facial pain (principal); K08.89 Other specified disorders of teeth and supporting structures; R06.2 Wheezing; R22.43 Localized swelling, mass and lump, lower limb, bilateral; R22.31 Localized swelling, mass and lump, right upper limb; M79.661 Pain in right lower leg; M79.662 Pain in left lower leg; H92.02 Otalgia, left ear; Z86.73 Personal history of transient ischemic attack (TIA), and cerebral infarction without residual deficits; J45.909 Unspecified asthma, uncomplicated; E28.2 Polycystic ovarian syndrome; F41.9 Anxiety disorder, unspecified; F33.9 Major depressive disorder, recurrent, unspecified; Z79.899 Other long term (current) drug therapy

== ENCOUNTER 2020-12-10 10:31 | Outpatient (RCR) | payer OTHER ==
[~2020-12-10 10:31] MED LIST changes: +CYMB1CAP4 PO; +EMGA120I INJ; +FIOR1CAP PO; +GABA-283 PO
== END 2020-12-11 | disposition home or self-care (01) ==
LOC: M PT 10:31
PROVIDERS: ATTEND Family Medicine
DX: S06.350D Traumatic hemorrhage of left cerebrum without loss of consciousness, subsequent encounter (principal); Z47.89 Encounter for other orthopedic aftercare; X58.XXXD Exposure to other specified factors, subsequent encounter

== ENCOUNTER 2021-01-10 14:30 | Outpatient (RCR) | payer OTHER ==
[~2021-01-10 14:30] MED LIST changes: -VENTAER; +VENTAER INH
[2021-04-15] MEDS ORDERED: DULO60CA35 PO (09:50)
[2021-04-15] MEDS ORDERED: GABA600T4 PO (09:50)
[2021-06-10] MEDS ORDERED: ELIQ5TAB (15:04)
[2021-07-09] MEDS ORDERED: DEXA2TA (10:26)
== END 2021-01-11 ==
LOC: M ST 14:30
PROVIDERS: ATTEND Family Medicine
DX: I63.9 Cerebral infarction, unspecified (principal)

== ENCOUNTER 2021-02-10 12:55 | Outpatient (RCR) | payer OTHER ==
[~2021-02-10 12:55] MED LIST changes: +VENTAER; -VENTAER INH
== END 2021-02-11 ==
LOC: M ST 12:55
PROVIDERS: ATTEND Family Medicine
DX: I63.89 Other cerebral infarction (principal); S06.350D Traumatic hemorrhage of left cerebrum without loss of consciousness, subsequent encounter

== ENCOUNTER 2021-02-26 13:25 | Outpatient (RCR) | payer OTHER | END 2021-03-13 | LOC: M ST 13:25 → M PT 13:25 | PROVIDERS: ATTEND Family Medicine | DX: S06.350D Traumatic hemorrhage of left cerebrum without loss of consciousness, subsequent encounter (principal) ==

== ENCOUNTER → 2021-02-26 | Outpatient (CLI) | payer OTHER | LOC: M PAIN 10:00 | PROVIDERS: ATTEND Anesthesiology | DX: G89.0 Central pain syndrome (principal); G50.0 Trigeminal neuralgia; Z86.73 Personal history of transient ischemic attack (TIA), and cerebral infarction without residual deficits; Z86.59 Personal history of other mental and behavioral disorders; Z87.891 Personal history of nicotine dependence; Z91.040 Latex allergy status; E66.01 Morbid (severe) obesity due to excess calories; Z68.42 Body mass index [BMI] 45.0-49.9, adult; Z79.899 Other long term (current) drug therapy ==

== ENCOUNTER → 2021-03-14 | Outpatient (REF) | payer OTHER ==
[2021-03-14 12:22] LABS: ALBUMIN 3.4 GM/DL (3.2-5.2); ALT/SGPT 53 U/L (12-78); BILIRUBIN,TOTAL 0.2 MG/DL (0.2-1.0); BLOOD UREA NITROGEN 10 MG/DL (7-18); CALCIUM LEVEL 8.9 MG/DL (8.5-10.1); CARBON DIOXIDE LEVEL 27 MEQ/L (21-32); CHLORIDE LEVEL 105 MEQ/L (98-107); GLOMERULAR FILTRATION RATE > 60.0 (>60); GLUCOSE, FASTING 136 MG/DL (70-100); POTASSIUM SERUM 4.3 MEQ/L (3.5-5.1); SODIUM LEVEL 140 MEQ/L (136-145); TOTAL PROTEIN 6.9 GM/DL (6.4-8.2)
== END ==
LOC: M SFHCADAM 08:58
PROVIDERS: ATTEND Family Medicine
DX: R63.5 Abnormal weight gain (principal)

== ENCOUNTER → 2021-03-24 | Outpatient (CLI) | payer OTHER ==
--- NOTE | 2021-03-24 12:17 | REP ---
INDICATION: RT AXILLA LUMP COMPARISON: 06/05/2019 TECHNIQUE: Directed B-mode ultrasound examination using linear high-frequency transducer. FINDINGS: Ultrasound examination demonstrates a small normal appearing lymph node measuring 8 x 7 x 3 mm. IMPRESSION: Finding corresponds to normal appearing lymph node. <Electronically signed by Yung Noel > 03/24/21 0045
== END ==
LOC: M RAD 11:05
PROVIDERS: ATTEND Family Medicine
DX: R59.1 Generalized enlarged lymph nodes (principal)

== ENCOUNTER → 2021-03-26 | Outpatient (CLI) | payer OTHER | LOC: M SLEEP HO 12:53 | PROVIDERS: ATTEND Nurse Practitioner Adult Health | DX: G47.30 Sleep apnea, unspecified (principal) ==

== ENCOUNTER → 2021-04-02 | Outpatient (CLI) | payer OTHER | LOC: M PAIN 09:00 | PROVIDERS: ATTEND Anesthesiology | DX: M79.2 Neuralgia and neuritis, unspecified (principal); G47.30 Sleep apnea, unspecified; Z86.73 Personal history of transient ischemic attack (TIA), and cerebral infarction without residual deficits; Z86.59 Personal history of other mental and behavioral disorders; Z87.891 Personal history of nicotine dependence; Z91.040 Latex allergy status; E66.01 Morbid (severe) obesity due to excess calories; Z68.42 Body mass index [BMI] 45.0-49.9, adult; Z79.899 Other long term (current) drug therapy ==

== ENCOUNTER → 2021-04-04 | Outpatient (CLI) | payer OTHER ==
--- NOTE | 2021-04-08 16:13 | SLEEPCENT ---
DATE: 04/04/2021 ORDERED BY: Paulina Mckeon Nocturnal polysomnography was performed for the titration of pressure therapy in this patient with a clinical diagnosis of obstructive sleep apnea syndrome, supported by home testing, revealing a respiratory event index of 123.9. For testing, the patient was fit with a ResMed AirFit F20 full-face mask of medium size. There was 4 cm of water pressure applied to the circuit, and the lights were extinguished. There was 7 hours and 52 minutes of data reviewed. There was 439 minutes of sleep identified. Sleep latency was normal at 6.5 minutes. REM latency was normal at 74 minutes. Sleep architecture was good with three REM cycles. Overall sleep efficiency was 94.5%. The electrocardiogram showed a sinus rhythm with an average heart rate of 68 beats per minute. EEG showed normal waveforms for wake and sleep. Respiratory events were fully palliated with CPAP at a pressure of 11. Further increases in pressure resulted in some emergence of central events. There was significant limb activity noted in the EMG leads. Limb movement arousal index was only 2.6. IMPRESSION: Obstructive sleep apnea syndrome (G47.33). RECOMMENDATION: Nightly use of pressure therapy, 11 cm of water.
== END ==
LOC: M SLEEP 20:00
PROVIDERS: ATTEND Nurse Practitioner Adult Health
DX: G47.33 Obstructive sleep apnea (adult) (pediatric) (principal)

== ENCOUNTER 2021-04-09 10:09 | Outpatient (RCR) | payer OTHER ==
[~2021-04-09 10:09] MED LIST changes: -VENTAER; +VENTAER INH
[2021-04-14] MEDS ORDERED: CARB1TAB20 PO (14:43)
[2021-04-15] MEDS ORDERED: GABA600T4 PO (09:50)
[2021-04-15] MEDS ORDERED: DULO60CA35 PO (09:50)
== END 2021-04-13 ==
LOC: M ST 10:09 → M OT 10:09
PROVIDERS: ATTEND Family Medicine
DX: S06.350D Traumatic hemorrhage of left cerebrum without loss of consciousness, subsequent encounter (principal); R47.01 Aphasia

== ENCOUNTER 2021-04-14 14:32 | Emergency (ER) | payer OTHER ==
[~2021-04-14] VITALS: Ht 165.1 cm; Wt 120.5 kg
[2021-04-14 14:33] VITALS: BP 130/80
--- OUTSIDE RECORDS SUMMARY | 2021-04-14 14:39 | CCD ---
Author Author [facility] [employer] [facility] [employer] Organization [facility] [employer] Address Unknown Phone Unavailable Care Team Providers Care Archival Studies Professor Name Role Phone Valorie Hills Unavailable PROBLEMS Type Condition ICD9-CM Code [id number] Code Onset Dates Condition S tatus W/U Status Risk SNOMED Code Notes Problem Depression, unspecified depression type F32.9 Active confirmed 80369777 Problem Uncomplicated asthma, unspecified asthma severity J45.909 Active confirmed 140184921 Problem Intrinsic eczema L20.84 Active confirmed 240 38480 Problem Obesity, unspecified obesity severity, unspecified obe sity type E66.9 Active confirmed 373480526 Problem Morbid (severe) obesity due to excess calories E66 .01 Active confirmed 925301398 Problem Obesity (BMI 35.0-39.9 without comorbidity) E66.9 Active confirmed 985113986 Problem Nicotine dependence, cigarettes, uncomplicated F17 .210 Active confirmed 44010349 Problem Asthma, unspecified asthma s everity, unspecified whether complicated, unspecified whether persistent J45.909 Active confirmed 242125553 Problem Attention-deficit hyperactivity disorder, combined type F90.2 Active confirmed 31765350 Problem Fatty liver K76.0 Active confirmed 95669178 7 Problem Obesity (BMI 30-39.9) E66.9 Active confirmed 368020596 Problem Gastroesophageal reflux disease without esophagitis K21.9 Active confirmed 345339709 Problem Cigarette nicotine dependence with nicotine-induced di sorder F17.219 Active confirmed 38707726 Problem Morbid obesity E66.01 Active confirmed 45856 6005 Problem Body mass index (BMI) 37.0-37.9, adult Z68.37 A ctive confirmed 775286145 Problem Obstructive sleep apnea G47.33 Active confirmed 60905386 Problem BMI 36.0-36.9,adult Z68.36 Active confirmed 549523196 Problem Neuropathy G62.9 Active confirmed 347796003 Problem ADD (attention deficit disorder) without hyperactivity F98.8 Active confirmed 06271549 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 Active confirmed 923335908 Problem Atopic dermatitis, unspecified type L20.9 Acti ve confirmed 22698029 Problem PCOS (polycystic ovarian syndrome) E28.2 Activ e confirmed 27856342 Problem Other chronic pain G89.29 Active confirmed 8 6054324 Problem Arteriovenous malformation Q27.30 Active confirmed 30126695 Problem Paresthesias R20.2 Active confirmed 6468514 4 Problem Cerebrovascular accident (CVA) due to other mechanism I63.89 Active confirmed 824352987 ALLERGIES Allergen (clinical drug ingredient) Drug/Non Drug Allergy do cumented on EMR Reaction Allergy Type Onset Date Status Latex Latex Rash Drug Allergy Active ENCOUNTERS from 1983 to 2021-04-10 Encounter Location Date Provider Diagnosis [facility] [address] [place] [address] Mar, Valorie Ni-Tartell Asthma, unspecified asthma severity, uns pecified whether complicated, unspecified whether persistent J45.909 IMMUNIZATIONS Vaccine Route Administration Date Status Influenza 18 yrs & older Flublok IM Intramuscular Apr 02, 2021 Administered TDAP 0.5mL (Boostrix) IM Intramuscular December 31, 2017 Administe red MMR 0.5mL SC Subcutaneous Feb 09, 2018 Administered MMR 0.5mL SC Subcutaneous December 31, 2017 Administered SOCIAL HISTORY Tobacco Use: Social History Observation Description Date Details (start date - stop date) Current Smoker Sex Assigned At : Social History Observation Description Sex Assigned At Unknown Education: Question Answer Notes Level of Education: Not Finished College Audit Question Answer Notes Total Score: 0 Interpretation: Alcohol Education Sexual Hx: Question Answer Notes Had sex in the last 12 months (vaginal, oral, or anal)? Yes LMP: 2010 Have you ever had an STD? Yes with Men only Use protection? No Drug and Alcohol Question Answer Notes Total Score: 0 Interpretation: No problems reported Alcohol Screening: Question Answer Notes Did you have a drink containing alcohol in the past year? Ye s Points 1 Interpretation Negative How often did you have six or more drinks on one occas ion in the past year? Less than monthly (1 point) How many drinks did you have on a typica l day when you were drinking in the past year? 1 or 2 (0 points) How often did you have a drink containing alcohol in t he past year? Never (0 points) BMI Care Goal Follow-Up Question Answer Notes Above Normal BMI Follow-Up Dietary management educatio n, guidance, and counseling Tobacco Use: Question Answer Notes Are you a: current smoker Smoking Cessation Information Given 12/26/2020 Patient counseled on the dangers of tobacco use and urged to quit: 09/28/2018 How many cigarettes a day do you smoke? 11-20 Are you interested in quitting? Ready to quit Counseled the patient on tobacco use, cessation provided REASON FOR REFERRAL No Information VITAL SIGNS No information MEDICATIONS Medication SIG (Take, Route, Frequency, Duration) Notes Start Da te End Date Status Cymbalta 60 MG 1 capsule Orally Once a day for 90 days Nov, Active traMADol HCl 50 MG 1 tablet as needed Orally tw ice daily as needed for severe pain, MDD2 for 30 days Feb, Not-Takin g Gabapentin 400 MG 1 capsule Orally bid for 30 day(s) Oc 2020 Active Lyrica 50 MG 1 capsule Orally Twice a day for 30 Days 15 J 2020 Not-Taking May Have - amoxicillin not sure of dose tid Not-Taking Cyclobenzaprine HCl 5 MG 1 tablet at bedtime as needed Orall y bid for 5 day(s) Dec, Not-Taking Gabapentin 600 MG 1 capsule Orally twice a day October, Active Ventolin HFA 108 (90 Base) MCG/ACT 2 puffs as needed I nhalation every 4 hrs for 30 days Feb, Active Belbuca 75 MCG 1 film to the gum Bucally for pain bid for 30 da ys Feb, Not-Taking Adderall 20 MG 1 tab Orally bid for 30 days Mar, Active Butrans 5 MCG/HR 1 patch to skin Transdermal change patch every 7 days, alternate sites for 28 days Feb, Not- Taking carBAMazepine 200 MG TAKE ONE TABLET BY MOUTH TWI CE A DAY Orally Twice a day for 30 days Active Aloe Vera 99 % 1 application to sunburn on extremities Externally four times daily for 4 days Nov, Not-Taking Triamcinolone Acetonide 0.025 % 1 application External ly to fingers bid for 30 Days Feb, Active Emgality 120 MG/ML as directed Subcutaneous once a month Active PROCEDURES No Information RESULTS No Results REASON FOR VISIT refill on inhale MEDICAL (GENERAL) HISTORY Type Description Date Medical History PCOS Medical History prediabetes Medical History eczema Medical History attention deficit disorder Medical History 10 year ASCVD risk 4.2% (08/2016) Medical History fatty liver seen on US (2018) Medical History 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); deficits include R sided neglect, CONTRERAS, double vision, light sensation loss on the R (can sense pressure), motor delay on R, finger to nose overshoot Medical History depression Medical History TMJ Medical History sleep apnea Surgical History d&C 2005 Surgical History nerve 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 [facility] and aborted, 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 L [employer] 10/25/2020 Hospitalization History delivery Hospitalization History surgery- STAGE 1 AND STAGE 2 EMBOLIZ ATION Hospitalization History brain bleed oct, 2020 Goals Section No Information Health Concerns No Information MEDICAL EQUIPMENT No Information MENTAL STATUS No Information FUNCTIONAL STATUS No Information ASSESSMENTS Encounter Date Diagnosis Assessment Notes Treatment Notes Treatm ent Clinical Notes Mar, Asthma, unspecified asthma s everity, unspecified whether complicated, unspecified whether persistent (ICD-10 - J45.909) PLAN OF TREATMENT Medication Medication Name Sig Start Date Stop Date Ventolin HFA 108 (90 Base) MCG/ACT 2 puffs as needed I nhalation every 4 hrs for 30 days Feb, Gabapentin 400 MG 1 capsule Orally bid for 30 day(s) Mar, Next Appt Details Provider Name:Felice Mckeon, 2021-04-28 09:00:00 AM, [address], , [place], [address], Provider Name:Valorie Hills, 2021-04-30 11:00:00 AM, [address], , [place], [address], Insurance Providers Payer Name Payer Address Payer Phone Insured Name Patient Relati onship to Insured Coverage Start Date Coverage End Date [facility] [address] [facility] [address] BETH ENCARNA[employer]ION self
--- OUTSIDE RECORDS SUMMARY | 2021-04-14 14:39 | CCD ---
Author Author [facility] [employer] Organization [facility] [employer] Address Unknown Phone Unavailable Care Team Providers Care Product/Industry Consultant Name Role Phone Felice Mckeon Unavailable PROBLEMS Type Condition ICD9-CM Code BBT65-SS Code Onset Dates Condition S tatus W/U Status Risk SNOMED Code Notes Problem Depression, unspecified depression type F32.9 Active confirmed 92507519 Problem Uncomplicated asthma, unspecified asthma severity J45.909 Active confirmed 293423294 Problem Intrinsic eczema L20.84 Active confirmed 240 70547 Problem Obesity, unspecified obesity severity, unspecified obe sity type E66.9 Active confirmed 193900768 Problem Morbid (severe) obesity due to excess calories E66 .01 Active confirmed 726200221 Problem Obesity (BMI 35.0-39.9 without comorbidity) E66.9 Active confirmed 401475838 Problem Nicotine dependence, cigarettes, uncomplicated F17 .210 Active confirmed 96650552 Problem Asthma, unspecified asthma s everity, unspecified whether complicated, unspecified whether persistent J45.909 Active confirmed 201984864 Problem Attention-deficit hyperactivity disorder, combined type F90.2 Active confirmed 29764535 Problem Fatty liver K76.0 Active confirmed 85776524 7 Problem Obesity (BMI 30-39.9) E66.9 Active confirmed 490098393 Problem Gastroesophageal reflux disease without esophagitis K21.9 Active confirmed 549800845 Problem Cigarette nicotine dependence with nicotine-induced di sorder F17.219 Active confirmed 96926174 Problem Morbid obesity E66.01 Active confirmed 43239 6006 Problem Body mass index (BMI) 37.0-37.9, adult Z68.37 A ctive confirmed 059144642 Problem Obstructive sleep apnea G47.33 Active confirmed 54756437 Problem BMI 36.0-36.9,adult Z68.36 Active confirmed 399505125 Problem Neuropathy G62.9 Active confirmed 695024411 Problem ADD (attention deficit disorder) without hyperactivity F98.8 Active confirmed 64442525 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 Active confirmed 428579044 Problem Atopic dermatitis, unspecified type L20.9 Acti ve confirmed 33314568 Problem PCOS (polycystic ovarian syndrome) E28.2 Activ e confirmed 86966205 Problem Other chronic pain G89.29 Active confirmed 8 9050476 Problem Arteriovenous malformation Q27.30 Active confirmed 12104491 Problem Paresthesias R20.2 Active confirmed 1852181 4 Problem Cerebrovascular accident (CVA) due to other mechanism I63.89 Active confirmed 765960897 ALLERGIES Allergen (clinical drug ingredient) Drug/Non Drug Allergy do cumented on EMR Reaction Allergy Type Onset Date Status Latex Latex Rash Drug Allergy Active ENCOUNTERS from 1983 to 2021-04-04 Encounter Location Date Provider Diagnosis [facility] [address] [facility] 3rd Floor [phone] [place] [address] Mar, Felice Mckeon Neuralgia of right u pper extremity M79.2 ; 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 ; Status post stroke Z86.73 and Trigeminal neuralgia G50.0 IMMUNIZATIONS Vaccine Route Administration Date Status Influenza [...] REASON FOR REFERRAL No Information VITAL SIGNS Weight 267 lbs Mar, Weight-kg 121.11 kg Mar, Height 5'4" in Mar, BMI 45.83 kg/m2 Mar, Heart Rate 102 /min Mar, Respiratory Rate 18 /min Mar, Temperature 98.6 degrees Fahrenheit Mar, Oximetry 96 Mar, Blood pressure systolic 137 mm Hg Mar, Blood pressure diastolic 72 mm Hg Mar, MEDICATIONS Medication SIG (Take, Route, Frequency, Duration) Notes Start Da te End Date Status Cymbalta 60 MG 1 capsule Orally Once a day for 90 days Nov, Active Ventolin HFA 108 (90 Base) MCG/ACT 2 puffs as needed I nhalation every 4 hrs for 30 days Feb, Active Gabapentin 400 MG 1 capsule Orally bid for 30 day(s) 2020 Active Lyrica 50 MG 1 capsule Orally Twice a day for 30 Days 2020 Not-Taking May Have - amoxicillin not sure of dose tid Not-Taking Cyclobenzaprine HCl 5 MG 1 tablet at bedtime as needed Orall y bid for 5 day(s) Dec, Not-Taking Gabapentin 600 MG 1 capsule Orally twice a day October, Active traMADol HCl 50 MG 1 tablet as needed Orally tw ice daily as needed for severe pain, MDD2 for 30 days Feb, Not-Oh soto Belbuca 75 MCG 1 film to the gum Bucally for pain bid for 30 da ys Feb, Not-Taking Adderall 20 MG 1 tab Orally bid for 30 days 04 Mar, 2021 Active Butrans 5 MCG/HR 1 patch to [...] Information RESULTS No Results REASON FOR VISIT Med start/discuss blocks MEDICAL (GENERAL) HISTORY Type Description Date Medical History PCOS Medical History prediabetes Medical History eczema Medical History attention deficit disorder Medical History 10 year ASCVD risk 4.2% (08/2016) Medical History fatty liver seen on US (2017) Medical History mechanical hemorrhagic strok e as [...] perforated blood vessel and hemorrhagic stroke L [employer] 10/25/2020 Hospitalization History delivery Hospitalization History surgery- STAGE 1 AND STAGE 2 EMBOLIZ ATION Hospitalization History brain bleed oct, 2020 Goals Section No Information Health Concerns No Information MEDICAL EQUIPMENT No Information MENTAL STATUS No Information FUNCTIONAL STATUS No Information ASSESSMENTS Encounter Date Diagnosis Assessment Notes Treatment Notes Treatm ent Clinical Notes Mar, Neuralgia of right upper extremity (ICD-10 - M79 .2) I discussed alternatives with Ms. Encarnacion. We discussed the idea of doing a stellate. I was thinking about doing facial blocks but now with the upper extremity symptoms, I feel a stellate will be better. I will request authorization for a stellate ganglion block. This will be done in the operating room for safety. I discussed with the patient how to reduce the gabapentin. The patient reports understanding and agrees with the plan. IMarianao, documented the above information acting as a scribe for Dr. Mckeon. I have reviewed the above document, written by Mariana Soler medical facilities section director, and I verify that it is accurate. Mar, Facial neuralgia (ICD-10 - G51.8) Mar, Status post stroke (ICD-10 - Z86.73) Mar, Trigeminal neuralgia (ICD-10 - G50.0) Right side PLAN OF TREATMENT Medication Medication Name Sig Start Date Stop Date Gabapentin 400 MG 1 capsule Orally bid for 30 day(s) Mar, Treatment Notes Assessment Notes Clinical Notes Neuralgia of right upper extremity I dis cussed alternatives with Ms. Encarnacion. We discussed the idea of doing a stellate. I was thinking about doing facial blocks but now with the upper extremity symptoms, I feel a stellate will be better. I will request authorization for a stellate ganglion block. This will be done in the operating room for safety. I discussed with the patient how to reduce the gabapentin. The patient reports understanding and agrees with the plan. I, Mariana Soler, documented the above information acting as a scribe for Dr. Mckeon. I have reviewed the above document, written by Mariana Soler medical facilities section director, and I verify that it is accurate. Next Appt Details Request auth for stellate ganglion. Done in OR. Try for 04/28/2021 Reason:Request auth for stellate ganglion. Done in OR. Try for 04/28/2021 Provider Name:Felice Mckeon, 2021-04-28 09:00:00 AM, [address], , [place], [address], Provider Name:Valorie Hills, 2021-04-30 11:00:00 AM, [address], , [place], [address], Follow Up:Request auth for stellate ganglion. Done in OR. Try for 04/28/2021equest auth for stellate ganglion. Done in OR. Try for 04/28/2021 Insurance Providers Payer Name Payer Address Payer Phone Insured Name Patient Relati onship to Insured Coverage Start Date Coverage End Date [facility] [address] [facility] [id number] BETH ENCARNACION self
--- OUTSIDE RECORDS SUMMARY | 2021-04-14 14:40 | CCD | Continuity of Care Document ---
Author Author [facility] Organization Unknown Address [address] [place] [address] [place] [address] Phone [phone] Care Team Providers Care Biostatistics Director Name Role Phone [facility] [phone] Problems Description No Information Available Social History Type Date Description Comments Sex Unknown Tobacco Use Start: Unknown Heavy tobacco smoker (more than 10 cigarettes/day) ETOH Use Rarely consumes alcohol Tobacco Use Start: Unknown Patient is a current smoker, smo kes every day Allergies, Adverse Reactions, Alerts Description No Known Drug Allergies Medications Active Medications SIG Qnty Indications Ordering Provide r Date Ventolin HFA 108(90Base) mcg/Act A erosol 2 puffs by mouth inhaled every 4-6 hours as needed Unknown BCP Unknown Metformin HCL 500mg Tablets Unknown Prozac Capsules Unknown Adderall Tablets take one (1) tab daily Unknown Valacyclovir HCL Tablets Unknown Immunizations Description No Information Available Vital Signs Date Vital Result Comment 02/02/2019 3:46pm BP Systolic 119 mmHg BP Diastolic 84 mmHg Heart Rate 83 /min Respiratory Rate 18 /min O2 % BldC Oximetry 98 % Body Temperature 98.5 F Weight 200.00 lb Height 65 inches 5'5" BMI (Body Mass Index) 33.3 kg/m2 Pain Level 7 10/25/2018 9:27am BP Systolic 109 mmHg BP Diastolic 77 mmHg Heart Rate 99 /min Respiratory Rate 20 /min O2 % BldC Oximetry 99 % Body Temperature 98.7 F Weight 200.00 lb Height 65 inches 5'5" BMI (Body Mass Index) 33.3 kg/m2 Pain Level 8 Results Description No Information Available Procedures Description No Information Available Medical Devices Description No Information Available Encounters Description No Information Available Assessments Date Code Description Provider 03/04/2021 Z20.828 Contact with and (perkins spected) exposure to other viral communicable diseases SARA Hassan Plan of Treatment No Information Available Functional Status Description No Information Available Mental Status Description No Information Available Referrals Description No Information Available
--- OUTSIDE RECORDS SUMMARY | 2021-04-14 14:40 | CCD ---
Author Author [facility] Organization [facility] Address Unknown Phone Unavailable Care Team Providers Care Radio Announcer Name Role Phone Felice Mckeon Unavailable PROBLEMS Type Condition ICD9-CM Code [id number] Code Onset Dates Condition S tatus W/U Status Risk SNOMED Code Notes Problem Depression, unspecified depression type F32.9 Active confirmed 08303832 Problem Uncomplicated asthma, unspecified asthma severity J45.909 Active confirmed 915079270 Problem Intrinsic eczema L20.84 Active confirmed 240 97310 Problem Obesity, unspecified obesity severity, unspecified obe sity type E66.9 Active confirmed 506240691 Problem Morbid (severe) obesity due to excess calories E66 .01 Active confirmed 747843030 Problem Obesity (BMI 35.0-39.9 without comorbidity) E66.9 Active confirmed 782340229 Problem Nicotine dependence, cigarettes, uncomplicated F17 .210 Active confirmed 87017801 Problem Asthma, unspecified asthma s everity, unspecified whether complicated, unspecified whether persistent J45.909 Active confirmed 441862545 Problem Attention-deficit hyperactivity disorder, combined type F90.2 Active confirmed 24302273 Problem Fatty liver K76.0 Active confirmed 11904313 7 Problem Obesity (BMI 30-39.9) E66.9 Active confirmed 803961673 Problem Gastroesophageal reflux disease without esophagitis K21.9 Active confirmed 175229293 Problem Cigarette nicotine dependence with nicotine-induced di sorder F17.219 Active confirmed 07703335 Problem Morbid obesity E66.01 Active confirmed 80014 6001 Problem Body mass index (BMI) 37.0-37.9, adult Z68.37 A ctive confirmed 986557963 Problem Obstructive sleep apnea G47.33 Active confirmed 77550057 Problem BMI 36.0-36.9,adult Z68.36 Active confirmed 121272380 Problem Neuropathy G62.9 Active confirmed 339977796 Problem ADD (attention deficit disorder) without hyperactivity F98.8 Active confirmed 21644479 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 Active confirmed 192656993 Problem Atopic dermatitis, unspecified type L20.9 Acti ve confirmed 73334831 Problem PCOS (polycystic ovarian syndrome) E28.2 Activ e confirmed 22602623 Problem Other chronic pain G89.29 Active confirmed 8 6528077 Problem Arteriovenous malformation Q27.30 Active confirmed 16067373 Problem Paresthesias R20.2 Active confirmed 8711402 4 Problem Cerebrovascular accident (CVA) due to other mechanism I63.89 Active confirmed 552973009 ALLERGIES Allergen (clinical drug ingredient) Drug/Non Drug Allergy do cumented on EMR Reaction Allergy Type Onset Date Status Latex (for allergy use only) Rash Drug Allergy Active ENCOUNTERS from 1983 to 2021-03-02 Encounter Location Date Provider Diagnosis [facility] [address] [facility] 3[address] Floor [phone] [place] [address] 15 Feb, 2021 Felice Mckeon Central pain syndrom e G89.0 ; Trigeminal neuralgia of right side of face G50.0 and Status post stroke Z86.73 IMMUNIZATIONS Vaccine Route Administration Date Status TDAP 0.5mL (Boostrix) IM Intramuscular December 31, [...] FOR REFERRAL No Information VITAL SIGNS Weight 264 lbs Feb, Weight-kg 119.75 kg Feb, Height 5'4" in Feb, BMI 45.31 kg/m2 Feb, Heart Rate 100 /min Feb, Respiratory Rate 18 /min Feb, Temperature 98.3 degrees Fahrenheit Feb, Oximetry 98 Feb, Blood pressure systolic 104 mm Hg Feb, Blood pressure diastolic 79 mm Hg Feb, MEDICATIONS Medication SIG (Take, Route, Frequency, Duration) Notes Start Da te End Date Status Gabapentin 600 MG 1 capsule Orally twice a day October, Active Triamcinolone Acetonide 0.025 % 1 application External ly to fingers bid for 30 Days Feb, Active Ventolin HFA 108 (90 Base) MCG/ACT 2 puffs as needed I nhalation every 4 hrs for 30 days Feb, Active Aloe Vera 99 % 1 application to sunburn on extremities Externally four times daily for 4 days Nov, Not-Taking Belbuca 75 MCG 1 film to the gum Bucally for pain bid for 30 da ys Feb, Active Cymbalta 60 MG 1 capsule Orally Once a day for 90 days Nov, Active Cyclobenzaprine HCl 5 MG 1 tablet at bedtime as needed Orall y bid for 5 day(s) Dec, Not-Taking Adderall 20 MG 1 tab Orally bid for 30 days Feb, Active May Have - amoxicillin not sure of dose tid Active carBAMazepine 200 MG TAKE ONE TABLET BY MOUTH TWI CE A DAY Orally Twice a day for 30 days Active Lyrica 50 MG 1 capsule Orally Twice a day for 30 Days 15 2020 Not-Taking Emgality 120 MG/ML as directed Subcutaneous once a month Active PROCEDURES No Information RESULTS No Results REASON FOR VISIT neuropathic pain/parathesis after iatrogenic cerebral hemorrage MEDICAL (GENERAL) HISTORY Type Description Date Medical [...] overshoot Medical History depression Medical History TMJ Surgical History d&C 2005 Surgical History nerve 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 [facility] and aborted, 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 [employer] 10/25/2020 Hospitalization History delivery Hospitalization History surgery- STAGE 1 AND STAGE 2 EMBOLIZ ATION Hospitalization History brain bleed oct, 2020 Goals Section No Information Health Concerns No Information MEDICAL EQUIPMENT No Information MENTAL STATUS No Information FUNCTIONAL STATUS No Information ASSESSMENTS Encounter Date Diagnosis Assessment Notes Treatment Notes Treatm ent Clinical Notes Feb, Central pain syndrome (ICD-10 - G89.0) Dr. Mckeon and I discussed with the patient and the plan of care will be to start Belbuca today, narcotic agreement reviewed and signed. Narcotic related side effects including but not necessarily limited to sedation, danger operating machinery or driving, constipation, nausea and addiction reviewed. Current medications can be continued with her primary care. We discussed potential nerve blocks and will revisit this topic at her next appointment on whether we can offer her a nerve block that will be beneficial at this office or if she will need referral. We will send a doctor to doctor agreement to her primary care provider. We will follow up in 1 month or sooner for concerns to review medication start and further discuss interventional options. Feb, Trigeminal neuralgia of right side of face (ICD- 10 - G50.0) Feb, Status post stroke (ICD-10 - Z86.73) Feb, Other ISTOP registry reviewed and demonstrates complliance. (Ref # [id number] ) Rachel Azevedo [facility] PLAN OF TREATMENT Medication Medication Name Sig Start Date Stop Date Triamcinolone Acetonide 0.025 % 1 application External ly to fingers bid for 30 Days Feb, Belbuca 75 MCG 1 film to the gum Bucally for pain bid for 30 da ys Feb, Treatment Notes Assessment Notes Clinical Notes Central pain syndrome Dr. Mckeon and I discussed with the patient and the plan of care will be to start Belbuca today, narcotic agreement reviewed and signed. Narcotic related side effects including but not necessarily limited to sedation, danger operating machinery or driving, constipation, nausea and addiction reviewed. Current medications can be continued with her primary care. We discussed potential nerve blocks and will revisit this topic at her next appointment on whether we can offer her a nerve block that will be beneficial at this office or if she will need referral. We will send a doctor to doctor agreement to her primary care provider. We will follow up in 1 month or sooner for concerns to review medication start and further discuss interventional options. Next Appt Details 1 Month Reason:Med start/discuss blocks Provider Name:Valorie Hills, 2021-03-12 01:00:00 PM, [address], , [place], [address], Provider Name:Felice Mckeon, 2021-04-02 09:00:00 AM, [address], , [place], [address], Follow Up:1 MonthMed start/discuss blocks Insurance Providers Payer Name Payer Address Payer Phone Insured Name Patient Relati onship to Insured Coverage Start Date Coverage End Date [facility]AN [facility] [address] [facility] [address] BETH ENCARNACION self
--- OUTSIDE RECORDS SUMMARY | 2021-04-14 14:40 | CCD ---
Author Author [facility] Organization [facility] Address Unknown Phone Unavailable Care Team Providers Care Order Builder Loader Name Role Phone Felice Mckeon Unavailable PROBLEMS Type Condition ICD9-CM Code SLK06-LE Code Onset Dates Condition S tatus W/U Status Risk SNOMED Code Notes Problem Depression, unspecified depression type F32.9 Active confirmed 13779267 Problem Uncomplicated asthma, unspecified asthma severity J45.909 Active confirmed 585706638 Problem Intrinsic eczema L20.84 Active confirmed 240 52747 Problem Obesity, unspecified obesity severity, unspecified obe sity type E66.9 Active confirmed 986445182 Problem Morbid (severe) obesity due to excess calories E66 .01 Active confirmed 285407979 Problem Obesity (BMI 35.0-39.9 without comorbidity) E66.9 Active confirmed 668216853 Problem Nicotine dependence, cigarettes, uncomplicated F17 .210 Active confirmed 56806868 Problem Asthma, unspecified asthma s everity, unspecified whether complicated, unspecified whether persistent J45.909 Active confirmed 025630611 Problem Attention-deficit hyperactivity disorder, combined type F90.2 Active confirmed 78849316 Problem Fatty liver K76.0 Active confirmed 19348916 7 Problem Obesity (BMI 30-39.9) E66.9 Active confirmed 624683018 Problem Gastroesophageal reflux disease without esophagitis K21.9 Active confirmed 508384508 Problem Cigarette nicotine dependence with nicotine-induced di sorder F17.219 Active confirmed 04343251 Problem Morbid obesity E66.01 Active confirmed 74801 6006 Problem Body mass index (BMI) 37.0-37.9, adult Z68.37 A ctive confirmed 320243348 Problem Obstructive sleep apnea G47.33 Active confirmed 72525785 Problem BMI 36.0-36.9,adult Z68.36 Active confirmed 504797352 Problem Neuropathy G62.9 Active confirmed 030983535 Problem ADD (attention deficit disorder) without hyperactivity F98.8 Active confirmed 64275905 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 Active confirmed 358021961 Problem Atopic dermatitis, unspecified type L20.9 Acti ve confirmed 66987623 Problem PCOS (polycystic ovarian syndrome) E28.2 Activ e confirmed 61161896 Problem Other chronic pain G89.29 Active confirmed 8 6758807 Problem Arteriovenous malformation Q27.30 Active confirmed 88161066 Problem Paresthesias R20.2 Active confirmed 0397976 4 Problem Cerebrovascular accident (CVA) due to other mechanism I63.89 Active confirmed 993905653 ALLERGIES Allergen (clinical drug ingredient) Drug/Non Drug Allergy do cumented on EMR Reaction Allergy Type Onset Date Status Latex (for allergy use only) Rash Drug Allergy Active ENCOUNTERS from 1983 to 2021-03-04 Encounter Location Date Provider Diagnosis [facility] [address] Floor [phone] [place] [address] 16 Feb, 2021 Felice Mckeon IMMUNIZATIONS Vaccine Route Administration Date Status TDAP [...] Notes Start Da te End Date Status Cyclobenzaprine HCl 5 MG 1 tablet at bedtime as needed Orall y bid for 5 day(s) Dec, Not-Taking Butrans 5 MCG/HR 1 patch to skin Transdermal change patch every 7 days, alternate sites for 28 days Feb, Acti ve Gabapentin 600 MG 1 capsule Orally twice a day October, Active Adderall 20 MG 1 tab Orally bid for 30 days Feb, Active carBAMazepine 200 MG TAKE ONE TABLET BY MOUTH TWI CE A DAY Orally Twice a day for 30 days Active Aloe Vera 99 % 1 application to sunburn on extremities Externally four times daily for 4 days Nov, Not-Taking Triamcinolone Acetonide 0.025 % 1 application External ly to fingers bid for 30 Days Feb, Active Lyrica 50 MG 1 capsule Orally Twice a day for 30 Days 2020 Not-Taking May Have - amoxicillin not sure of dose tid Active Emgality 120 MG/ML as directed Subcutaneous once a month Active Ventolin HFA 108 (90 Base) MCG/ACT 2 puffs as needed I nhalation every 4 hrs for 30 days Feb, Active Belbuca 75 MCG 1 film to the gum Bucally for pain bid for 30 da ys Feb, Active Cymbalta 60 MG 1 capsule Orally Once a day for 90 days Nov, Active PROCEDURES No Information RESULTS No Results REASON FOR VISIT P/A BELBUCA FILMS MEDICAL (GENERAL) HISTORY Type Description Date Medical [...] perforated blood vessel and hemorrhagic stroke 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 Hospitalization History delivery Hospitalization History surgery- STAGE 1 AND STAGE 2 EMBOLIZ ATION Hospitalization History brain bleed oct, 2020 Goals Section No Information Health Concerns No Information MEDICAL EQUIPMENT No Information MENTAL STATUS No Information FUNCTIONAL STATUS No Information ASSESSMENTS No Information PLAN OF TREATMENT Medication Medication Name Sig Start Date Stop Date Butrans 5 MCG/HR 1 patch to skin Transdermal change patch every 7 days, alternate sites for 28 days Feb, Belbuca 75 MCG 1 film to the gum Bucally for pain bid for 30 da ys Feb, Triamcinolone Acetonide 0.025 % 1 application External ly to fingers bid for 30 Days Feb, Next Appt Details Provider Name:Valorie Hills, 2021-03-12 01:00:00 PM, [address] [address], , [place], [address], Provider Name:Felice Mckeon, 2021-04-02 09:00:00 AM, [address], , [place], [address], Insurance Providers Payer Name Payer Address Payer Phone Insured Name Patient Relati onship to Insured Coverage Start Date Coverage End Date [facility] [address] [facility] [phone] BETH E[employer]ION self
--- OUTSIDE RECORDS SUMMARY | 2021-04-14 14:40 | CCD | Continuity of Care Document ---
Author Author [facility] [place] Organization Unknown Address [address] [place] [address] [place] [address] Phone [phone] Care Team Providers Care Geriatric Personal Care Aide Name Role Phone [facility] AUTM [phone] Problems Description No Information Available Social History [...] Available Encounters Description No Information Available Assessments Description No Information Available Plan of Treatment No Information Available Functional Status Description No Information Available Mental Status Description No Information Available Referrals Description No Information Available
--- OUTSIDE RECORDS SUMMARY | 2021-04-14 14:40 | CCD | Continuity of Care Document ---
Author Brea Terrell M.D. Organization Unknown Address [address] [place] [address] Phone [phone] Care Team Providers Care Suction Roller Name Role Phone Valorie Branch DO AUTM Problems Active Problems Provider Date Migraine Echo Acuna M.D. Onset: 05/28/2020 Social History Type Date Description Comments Sex Unknown Tobacco Use Start: Unknown Heavy tobacco smoker (more than 10 cigarettes/day) Allergies, Adverse Reactions, Alerts Active Allergies Criticality Reaction | Severity Comments Date Latex Unable to assess criticality 05/28/2020 Medications Active Medications SIG Qnty Indications Ordering Provide r Date Emgality 120mg/ml Solution Auto-In ject subcutaneous injection once a month for migraine prevention. 1ml Echo Acuna M.D. 08/26/2020 Verapamil HCL 40mg Tablets Take 1 tab po bid. Start with 1/2 tab PO bid for 3 days. 60tabs Echo Acuna M.D. 05/28/2020 Prozac 20mg Capsules patient takes once a day Echo Acuna M.D. Immunizations Description No Information Available Vital Signs Date Vital Result Comment 03/06/2021 1:56pm Respiratory Rate 12 /min Height 64 inches 5'4" Weight 210.00 lb BMI (Body Mass Index) 36.0 kg/m2 [place] Body Weight 120 lb 11/21/2020 12:57pm Respiratory Rate 12 /min Height 64 inches 5'4" Weight 210.00 lb BMI (Body Mass Index) 36.0 kg/m2 [place] Body Weight 120 lb Results Description No Information Available Procedures Date Code Description Status 03/06/2021 23704 Office/Outpatient Established Mo d MDM 30-39 Min Completed 11/21/2020 50676 Office/Outpatient Established Mo d MDM 30-39 Min Completed Medical Devices Description No Information Available Encounters Type Date Location Provider Dx Diagnosis Office Visit 03/06/2021 1:30p Main office - [place] Echo man M.D. Q28.2 Arteriovenous malformation of cerebral v essels G43.119 Migraine with aura, intracta ble, without status migrainosus Office Visit 11/21/2020 12:45p Main office - [place] Echo man M.D. Q28.2 Arteriovenous malformation of cerebral v essels I63.9 Cerebral infarction, unspeci fied Assessments Date Code Description Provider 03/06/2021 Q28.2 Arteriovenous malformation of ce rebral vessels Echo Acuna M.D. 03/06/2021 G43.119 Migraine with aura, intractable, without status migrainosus Echo Acuna M.D. 11/21/2020 Q28.2 Arteriovenous malformation of ce rebral vessels Echo Acuna M.D. 11/21/2020 I63.9 Cerebral infarction, unspecified Echo Acuna M.D. Plan of Treatment Future Appointment(s):* 09/04/2021 12:00 pm - Echo Acuan M.D. at Main office - [place] Functional Status Description No Information Available Mental Status Description No Information Available Referrals Description No Information Available
--- OUTSIDE RECORDS SUMMARY | 2021-04-14 14:40 | CCD ---
Author Author [facility] Organization [facility] Address Unknown Phone Unavailable Care Team Providers Care Used Car Make Ready Mechanic Name Role Phone Felice Mckeon Unavailable PROBLEMS Type Condition ICD9-CM Code ESE80-PM Code Onset Dates Condition S tatus W/U Status Risk SNOMED Code Notes Problem Depression, unspecified depression type F32.9 Active confirmed 07125191 Problem Uncomplicated asthma, unspecified asthma severity J45.909 Active confirmed 862527150 Problem Intrinsic eczema L20.84 Active confirmed 240 61085 Problem Obesity, unspecified obesity severity, unspecified obe sity type E66.9 Active confirmed 493802082 Problem Morbid (severe) obesity due to excess calories E66 .01 Active confirmed 558160955 Problem Obesity (BMI 35.0-39.9 without comorbidity) E66.9 Active confirmed 539621124 Problem Nicotine dependence, cigarettes, uncomplicated F17 .210 Active confirmed 20001512 Problem Asthma, unspecified asthma s everity, unspecified whether complicated, unspecified whether persistent J45.909 Active confirmed 938315313 Problem Attention-deficit hyperactivity disorder, combined type F90.2 Active confirmed 12840940 Problem Fatty liver K76.0 Active confirmed 62518231 7 Problem Obesity (BMI 30-39.9) E66.9 Active confirmed 605572171 Problem Gastroesophageal reflux disease without esophagitis K21.9 Active confirmed 937915148 Problem Cigarette nicotine dependence with nicotine-induced di sorder F17.219 Active confirmed 54718855 Problem Morbid obesity E66.01 Active confirmed 69511 6000 Problem Body mass index (BMI) 37.0-37.9, adult Z68.37 A ctive confirmed 102108922 Problem Obstructive sleep apnea G47.33 Active confirmed 20530852 Problem BMI 36.0-36.9,adult Z68.36 Active confirmed 900210771 Problem Neuropathy G62.9 Active confirmed 532557492 Problem ADD (attention deficit disorder) without hyperactivity F98.8 Active confirmed 73417343 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 Active confirmed 411165217 Problem Atopic dermatitis, unspecified type L20.9 Acti ve confirmed 22274466 Problem PCOS (polycystic ovarian syndrome) E28.2 Activ e confirmed 35287649 Problem Other chronic pain G89.29 Active confirmed 8 9710605 Problem Arteriovenous malformation Q27.30 Active confirmed 78323255 Problem Paresthesias R20.2 Active confirmed 8335813 4 Problem Cerebrovascular accident (CVA) due to other mechanism I63.89 Active confirmed 055408198 ALLERGIES Allergen (clinical drug ingredient) Drug/Non Drug Allergy do cumented on EMR Reaction Allergy Type Onset Date Status Latex (for allergy use only) Rash Drug Allergy Active ENCOUNTERS from 1983 to 2021-03-07 Encounter Location Date Provider Diagnosis [facility] [address] Floor [phone] [place] [address] Feb, Felice Mckeon IMMUNIZATIONS Vaccine Route Administration Date [...] a day for 30 Days 2020 Not-Taking traMADol HCl 50 MG 1 tablet as needed Orally tw ice daily as needed for severe pain, MDD2 for 30 days Feb, Active Emgality 120 MG/ML as directed [...] a day for 90 days Nov, Active May Have - amoxicillin not sure of dose tid Active PROCEDURES No Information RESULTS No Results REASON FOR VISIT Medications MEDICAL (GENERAL) HISTORY Type Description Date Medical [...] perforated blood vessel and hemorrhagic stroke [employer]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 History delivery Hospitalization History surgery- [...] pain bid for 30 da ys Feb, traMADol HCl 50 MG 1 tablet as needed Orally tw ice daily as needed for severe pain, MDD2 for 30 days Feb, Triamcinolone Acetonide 0.025 % 1 application External ly to fingers bid for 30 Days Feb, Next Appt Details Provider Name:Valorie Hills, 2021-03-12 01:00:00 PM, [address], , [place], [address], Provider Name:Felice Mckeon, 2021-04-02 09:00:00 AM, [address], , [place], [address], Insurance Providers Payer Name Payer Address Payer Phone Insured Name Patient Relati onship to Insured Coverage Start Date Coverage End Date [facility] COMM[facility] PLAN [facility] [address] [facility] [phone] BETH ENCARNACION self
--- OUTSIDE RECORDS SUMMARY | 2021-04-14 14:40 | CCD ---
Author Author [facility] Organization [facility] Address Unknown Phone Unavailable Care Team Providers Care Motor Vehicle Emissions Inspector Name Role Phone Felice Mckeon Unavailable PROBLEMS Type Condition ICD9-CM Code [id number] Code Onset Dates Condition S tatus W/U Status Risk SNOMED Code Notes Problem Depression, unspecified depression type F32.9 Active confirmed 11776882 Problem Uncomplicated asthma, unspecified asthma severity J45.909 Active confirmed 797700559 Problem Intrinsic eczema L20.84 Active confirmed 240 86580 Problem Obesity, unspecified obesity severity, unspecified obe sity type E66.9 Active confirmed 387959324 Problem Morbid (severe) obesity due to excess calories E66 .01 Active confirmed 309724043 Problem Obesity (BMI 35.0-39.9 without comorbidity) E66.9 Active confirmed 101564236 Problem Nicotine dependence, cigarettes, uncomplicated F17 .210 Active confirmed 56304070 Problem Asthma, unspecified asthma s everity, unspecified whether complicated, unspecified whether persistent J45.909 Active confirmed 967393674 Problem Attention-deficit hyperactivity disorder, combined type F90.2 Active confirmed 88649245 Problem Fatty liver K76.0 Active confirmed 63098107 7 Problem Obesity (BMI 30-39.9) E66.9 Active confirmed 468059427 Problem Gastroesophageal reflux disease without esophagitis K21.9 Active confirmed 634872707 Problem Cigarette nicotine dependence with nicotine-induced di sorder F17.219 Active confirmed 22838656 Problem Morbid obesity E66.01 Active confirmed 90657 6006 Problem Body mass index (BMI) 37.0-37.9, adult Z68.37 A ctive confirmed 240916516 Problem Obstructive sleep apnea G47.33 Active confirmed 20497854 Problem BMI 36.0-36.9,adult Z68.36 Active confirmed 433776629 Problem Neuropathy G62.9 Active confirmed 764381217 Problem ADD (attention deficit disorder) without hyperactivity F98.8 Active confirmed 60188937 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 Active confirmed 254969032 Problem Atopic dermatitis, unspecified type L20.9 Acti ve confirmed 88516719 Problem PCOS (polycystic ovarian syndrome) E28.2 Activ e confirmed 59046570 Problem Other chronic pain G89.29 Active confirmed 8 8204667 Problem Arteriovenous malformation Q27.30 Active confirmed 43211466 Problem Paresthesias R20.2 Active confirmed 4848979 4 Problem Cerebrovascular accident (CVA) due to other mechanism I63.89 Active confirmed 392429579 ALLERGIES Allergen (clinical drug ingredient) Drug/Non Drug Allergy do cumented on EMR Reaction Allergy Type Onset Date Status Latex (for allergy use only) Rash Drug Allergy Active ENCOUNTERS from 1983 to 2021-03-05 Encounter Location Date Provider Diagnosis [facility] [address] Floor [phone] [place] [address] Feb, Felice Mckeon IMMUNIZATIONS Vaccine Route Administration [...] Information RESULTS No Results REASON FOR VISIT tramdol instead of butrans MEDICAL (GENERAL) HISTORY Type Description Date Medical [...] perforated blood vessel 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
--- OUTSIDE RECORDS SUMMARY | 2021-04-14 14:40 | CCD ---
Author Author [facility] Organization [facility] Address Unknown Phone Unavailable Care Team Providers Care Drug Enforcement Agent Name Role Phone Valorie Hills Unavailable PROBLEMS Type Condition ICD9-CM Code [id number] Code Onset Dates Condition S tatus W/U Status Risk SNOMED Code Notes Problem Uncomplicated asthma, unspecified asthma severity J45.909 Active confirmed 898290660 Problem Obesity, unspecified obesity severity, unspecified obe sity type E66.9 Active confirmed 734859214 Problem Depression, unspecified depression type F32.9 Active confirmed 17889708 Problem Obstructive sleep apnea G47.33 Active confirmed 34110473 Problem Cigarette nicotine dependence with nicotine-induced di sorder F17.219 Active confirmed 33243978 Problem Asthma, unspecified asthma s everity, unspecified whether complicated, unspecified whether persistent J45.909 Active confirmed 890623565 Problem PCOS (polycystic ovarian syndrome) E28.2 Activ e confirmed 56935821 Problem Fatty liver K76.0 Active confirmed 88816783 7 Problem Nicotine dependence, cigarettes, uncomplicated F17 .210 Active confirmed 82816236 Problem Obesity (BMI 30-39.9) E66.9 Active confirmed 829467511 Problem Attention-deficit hyperactivity disorder, combined type F90.2 Active confirmed 11777307 Problem Morbid obesity E66.01 Active confirmed 81673 6002 Problem Gastroesophageal reflux disease without esophagitis K21.9 Active confirmed 374051333 Problem Morbid (severe) obesity due to excess calories E66 .01 Active confirmed 222604040 Problem Body mass index (BMI) 37.0-37.9, adult Z68.37 A ctive confirmed 231794134 Problem Obesity (BMI 35.0-39.9 without comorbidity) E66.9 Active confirmed 635278829 Problem Cerebrovascular accident (CVA) due to other mechanism I63.89 Active confirmed 369295912 Problem Atopic dermatitis, unspecified type L20.9 Acti ve confirmed 92034028 Problem Neuropathy G62.9 Active confirmed 855598823 Problem Intrinsic eczema L20.84 Active confirmed 240 44682 Problem ADD (attention deficit disorder) without hyperactivity F98.8 Active confirmed 57970525 Problem BMI 36.0-36.9,adult Z68.36 Active confirmed 929822741 Problem Other chronic pain G89.29 Active confirmed 8 5956295 Problem Arteriovenous malformation Q27.30 Active confirmed 50381076 Problem Paresthesias R20.2 Active confirmed 0163205 4 ALLERGIES Allergen (clinical drug ingredient) Drug/Non Drug Allergy do cumented on EMR Reaction Allergy Type Onset Date Status Latex (for allergy use only) Rash Drug Allergy Active ENCOUNTERS from 1983 to 2021-02-19 Encounter Location Date Provider Diagnosis [place] [id number] [place] [address] Feb, Valorie Ni-Hugh IMMUNIZATIONS Vaccine Route Administration Date Status TDAP [...] Notes Start Da te End Date Status Aloe Vera 99 % 1 application to sunburn on extremities Externally four times daily for 4 days Nov, Active Emgality 120 MG/ML as directed Subcutaneous Active Gabapentin 600 MG 1 capsule Orally 4xs a day for 30 days 2 October, Active carBAMazepine 200 MG TAKE ONE TABLET BY MOUTH TWI CE A DAY Orally Twice a day for 30 days Active Lyrica 50 MG 1 capsule Orally Twice a day for 30 Days 15 2020 Active Ventolin HFA 108 (90 Base) MCG/ACT 2 puffs as needed I nhalation every 4 hrs for 30 days Feb, Active Cyclobenzaprine HCl 5 MG 1 tablet at bedtime as needed Orall y bid for 5 day(s) Dec, Active Cymbalta 60 MG 1 capsule Orally Once a day for 90 days Nov, Active Adderall 20 MG 1 tab Orally bid for 30 days Feb, Active PROCEDURES No Information RESULTS No Results REASON FOR VISIT bumps on fingers MEDICAL (GENERAL) HISTORY Type Description Date Medical [...] delay on R, finger to nose overshoot Surgical History d&C 2005 Surgical History nerve 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 [facility] and aborted, 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 Hospitalization History delivery Hospitalization History surgery Hospitalization History brain bleed oct, 2020 Goals Section No Information Health Concerns No Information MEDICAL EQUIPMENT No Information MENTAL STATUS No Information FUNCTIONAL STATUS No Information ASSESSMENTS No Information PLAN OF TREATMENT Medication Medication Name Sig Start Date Stop Date Cymbalta 60 MG 1 capsule Orally Once a day for 90 days Nov, Cyclobenzaprine HCl 5 MG 1 tablet at bedtime as needed Orall y bid for 5 day(s) Dec, Gabapentin 600 MG 1 capsule Orally 4xs a day for 30 days October, carBAMazepine 200 MG TAKE ONE TABLET BY MOUTH TWI CE A DAY Orally Twice a day for 30 days Lyrica 50 MG 1 capsule Orally Twice a day for 30 Days Dec, Adderall 20 MG 1 tab Orally bid for 30 days Feb, Next Appt Details Provider Name:Valorie Hills, 2021-02-26 08:30:00 AM, [address] [address], , [place], [address], Provider Name:Felice Mckeon, 2021-02-26 10:00:00 AM, [address], , [place], [address], Insurance Providers Payer Name Payer Address Payer Phone Insured Name Patient Relati onship to Insured Coverage Start Date Coverage End Date [facility] PLAN [facility] [address] [facility] [phone] BETH ENCARNACION self
--- OUTSIDE RECORDS SUMMARY | 2021-04-14 14:40 | CCD | Continuity of Care Document ---
Author Author [facility] Organization Unknown Address [address] [place] [address] Phone [phone] Care Team Providers Care Clerical And Office Support Workers Name Role Phone Valorie Hills D.O. AUTM AUTM Unavailable AUTM Unavailable Problems Description No Information Available Social History Type Date Description Comments Sex Unknown Cigarette Use Former Cigarette Use Former pt. smoked 1/2 t o 1 pack per day times 20 years. quit 10/25/2020 Tobacco Use Start: Unknown End: Unknown Patient is a former smoker Smoking Status Reviewed: 03/12/21 Patient is a former smoker Allergies and adverse reactions Description No Known Drug Allergies Medications Active Medications SIG Qnty Indications Ordering Provide r Date Duloxetine HCL 60mg Caps DR Part 1 by mouth daily Unknown Carbamazepine 200mg Tablets 1 by mouth twice daily Unknown Adderall 20mg Tablets 1 by mouth twice a day Unknown Emgality 120mg/ml Solution Auto-In ject once a month Unknown Gabapentin 600mg Tablets 1 tab by mouth twice a day Unknown Albuterol Sulfate HFA 108(90Base) mcg/Act Aerosol inhale two puffs by mouth four times a day as needed Unknown Tramadol HCL 50mg Tablets 1-2 every 6 hours as needed for pain Unknown 000 Immunizations Description No Information Available Vital Signs Date Vital Result Comment 04/01/2021 12:41pm BP Systolic 128 mmHg BP Diastolic 80 mmHg Heart Rate 119 /min O2 % BldC Oximetry 97 % Height 64 inches 5'4" Weight 266.00 lb BMI (Body Mass Index) 45.7 kg/m2 [place] Body Weight 120 lb Weight 120.658 kg BSA (Body Surface Area) 2.21 m2 03/12/2021 9:49am BP Systolic 122 mmHg BP Diastolic 76 mmHg Heart Rate 93 /min O2 % BldC Oximetry 96 % Height 64 inches 5'4" Weight 266.00 lb BMI (Body Mass Index) 45.7 kg/m2 [place] Body Weight 120 lb Neck Circumference in inches 15.5 [place] Score 20 Weight 120.658 kg BSA (Body Surface Area) 2.21 m2 Results Description No Information Available Procedures Date Code Description Status 04/01/2021 23117 Office/Outpatient Established Lo w MDM 20-29 Min Completed 03/12/2021 80382 Office/Outpatient New Low MDM 30 -44 Minutes Completed Medical Devices Description No Information Available Encounters Type Date Location Provider Dx Diagnosis Office Visit 04/01/2021 12:30p [facility] Pul[facility]/Thoracic Paulina To aliciae, A.N.P. G47.33 Obstructive sleep apnea (adult) (pediatr ic) Office Visit 03/12/2021 10:00a [facility]/Thoracic Paulina To wne, A.N.P. G47.30 Sleep apnea, unspecified R06.83 Snoring Assessments Date Code Description Provider 04/01/2021 G47.33 Obstructive sleep apnea (adult) (pediatric) Paulina Workman, A.N.P. 03/12/2021 G47.30 Sleep apnea, unspecified Paulina To wne, A.N.P. 03/12/2021 R06.83 Snoring Paulina Jeane, A.N. P. Plan of Treatment Future Appointment(s):* 06/25/2021 10:30 am - Paulina Workman, A.N.P. at [facility] Pulmonary/Thoracic 04/01/2021 - Paulina Jeane, A.N.P.* G47.33 Obstructive sleep apnea (adult) (pediatric) * * New Orders:* Sleep Titration Study, Scheduled: 04/04/21 * Follow up:* Followup 8 weeks after KYLEE titration study with compliance report-30. Functional Status Description No Information Available Mental Status Description No Information Available Referrals Refer to Reason for Referral Status Appt Date [facility] sleep 89446 approval Created Sleep Lab [address] [place], [place] [id number] [phone] Paulina Workman A.N.P. SNORING Scheduled 03/12/2021 [facility] [address] [place], [place] [address] [phone]
--- OUTSIDE RECORDS SUMMARY | 2021-04-14 14:40 | CCD ---
Author Author [facility] Organization [facility] Address Unknown Phone Unavailable Care Team Providers Care Digital Strategy Manager Name Role Phone Felice Mckeon Unavailable PROBLEMS Type Condition ICD9-CM Code YCH88-OS Code Onset Dates Condition S tatus W/U Status Risk SNOMED Code Notes Problem Depression, unspecified depression type F32.9 Active confirmed 94734298 Problem Uncomplicated asthma, unspecified asthma severity J45.909 Active confirmed 737853410 Problem Intrinsic eczema L20.84 Active confirmed 240 11802 Problem Obesity, unspecified obesity severity, unspecified obe sity type E66.9 Active confirmed 500406884 Problem Morbid (severe) obesity due to excess calories E66 .01 Active confirmed 247592006 Problem Obesity (BMI 35.0-39.9 without comorbidity) E66.9 Active confirmed 355780089 Problem Nicotine dependence, cigarettes, uncomplicated F17 .210 Active confirmed 93342960 Problem Asthma, unspecified asthma s everity, unspecified whether complicated, unspecified whether persistent J45.909 Active confirmed 583993291 Problem Attention-deficit hyperactivity disorder, combined type F90.2 Active confirmed 99967889 Problem Fatty liver K76.0 Active confirmed 11219796 7 Problem Obesity (BMI 30-39.9) E66.9 Active confirmed 718903989 Problem Gastroesophageal reflux disease without esophagitis K21.9 Active confirmed 006062338 Problem Cigarette nicotine dependence with nicotine-induced di sorder F17.219 Active confirmed 55920428 Problem Morbid obesity E66.01 Active confirmed 95962 6000 Problem Body mass index (BMI) 37.0-37.9, adult Z68.37 A ctive confirmed 707543896 Problem Obstructive sleep apnea G47.33 Active confirmed 57800907 Problem BMI 36.0-36.9,adult Z68.36 Active confirmed 289309359 Problem Neuropathy G62.9 Active confirmed 553642380 Problem ADD (attention deficit disorder) without hyperactivity F98.8 Active confirmed 38835019 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 Active confirmed 989773626 Problem Atopic dermatitis, unspecified type L20.9 Acti ve confirmed 02360786 Problem PCOS (polycystic ovarian syndrome) E28.2 Activ e confirmed 10316651 Problem Other chronic pain G89.29 Active confirmed 8 1539753 Problem Arteriovenous malformation Q27.30 Active confirmed 64914115 Problem Paresthesias R20.2 Active confirmed 3122930 4 Problem Cerebrovascular accident (CVA) due to other mechanism I63.89 Active confirmed 326676536 ALLERGIES Allergen (clinical drug ingredient) Drug/Non Drug Allergy do cumented on EMR Reaction Allergy Type Onset Date Status Latex (for allergy use only) Rash Drug Allergy Active ENCOUNTERS from 1983 to 2021-03-05 Encounter Location Date Provider Diagnosis [facility] [address] Floor [phone] [place] [address] Feb, Felice Mckeon IMMUNIZATIONS Vaccine Route Administration [...] Information RESULTS No Results REASON FOR VISIT INS DENIAL-Tramadol Script MEDICAL (GENERAL) HISTORY Type Description Date Medical [...] perforated blood vessel and hemorrhagic stroke 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 Hospitalization History delivery Hospitalization History surgery- [...] Details Provider Name:Valorie Hills, 2021-03-12 01:00:00 PM, [address], , [place], [address], Provider Name:Felice Mckeon, 2021-04-02 09:00:00 AM, [address], , [place], [address], Insurance Providers Payer Name Payer Address Payer Phone Insured Name Patient Relati onship to Insured Coverage Start Date Coverage End Date [facility] COMMUNITY PLAN [facility] [address] [facility] [phone] BETH ENCARNACION self
--- OUTSIDE RECORDS SUMMARY | 2021-04-14 14:40 | CCD | Continuity of Care Document ---
Author Author Brea WORKMAN [facility] Organization Unknown Address [address] [place] [address] Phone [phone] Care Team Providers Care Sander Wooden Pencils Name Role Phone Valorie Hills D.O. AUTM [...] lb BMI (Body Mass Index) 45.7 kg/m2 [place] Body Weight 120 lb Weight 120.658 kg BSA (Body Surface Area) 2.21 m2 03/12/2021 9:49am BP Systolic 122 mmHg BP Diastolic 76 mmHg Heart Rate 93 /min O2 % BldC Oximetry 96 % Height 64 inches 5'4" Weight 266.00 lb BMI (Body Mass Index) 45.7 kg/m2 [place] Body Weight 120 lb Neck Circumference in inches 15.5 [place] Score 20 Weight 120.658 kg BSA (Body Surface Area) 2.21 m2 Results Description No Information Available Procedures Date Code Description Status 03/12/2021 36715 Office/Outpatient New Low MDM 30 -44 Minutes Completed Medical Devices Description No Information Available Encounters Type Date Location Provider Dx Diagnosis Office Visit 03/12/2021 10:00a [facility] Pulmonary/Thoracic [facility] Baxter G47.30 Sleep apnea, unspecified R06.83 Snoring Assessments Date Code Description Provider 04/01/2021 G47.33 Obstructive sleep apnea (adult) (pediatric) [facility] Elizalde 03/12/2021 G47.30 Sleep apnea, unspecified [facility] Baxter 03/12/2021 R06.83 Snoring [facility] Elizalde Plan of Treatment 04/01/2021 - [facility] Elizalde* G47.33 Obstructive sleep apnea (adult) (pediatric) * * New Orders:* Sleep Titration Study, Ordered: 04/01/21 * Follow up:* Followup 8 weeks after KYLEE titration study with compliance report-30. Functional Status Description No Information Available Mental Status Description No Information Available Referrals Refer to Reason for Referral Status Appt Date Paulina Workman, RoseNAntoinette SNORING Scheduled 03/12/2021 [facility] [address] [place], [place] [address] [phone]
--- OUTSIDE RECORDS SUMMARY | 2021-04-14 14:40 | CCD ---
Author Author [facility] [employer] [facility] Organization [facility] [employer] [facility] Address Unknown Phone Unavailable Care Team Providers Care Straw Hat Brim Cutter Operator Name Role Phone Valorie Hills Unavailable PROBLEMS Type Condition ICD9-CM Code XJH39-NV Code Onset Dates Condition S tatus W/U Status Risk SNOMED Code Notes Problem Uncomplicated asthma, unspecified asthma severity J45.909 Active confirmed 417700506 Problem Obesity, unspecified obesity severity, unspecified obe sity type E66.9 Active confirmed 121509728 Problem Depression, unspecified depression type F32.9 Active confirmed 09082879 Problem Obstructive sleep apnea G47.33 Active confirmed 28203265 Problem Cigarette nicotine dependence with nicotine-induced di sorder F17.219 Active confirmed 46037575 Problem Asthma, unspecified asthma s everity, unspecified whether complicated, unspecified whether persistent J45.909 Active confirmed 083971240 Problem PCOS (polycystic ovarian syndrome) E28.2 Activ e confirmed 41585477 Problem Fatty liver K76.0 Active confirmed 18147850 7 Problem Nicotine dependence, cigarettes, uncomplicated F17 .210 Active confirmed 07475236 Problem Obesity (BMI 30-39.9) E66.9 Active confirmed 726071454 Problem Attention-deficit hyperactivity disorder, combined type F90.2 Active confirmed 67521542 Problem Morbid obesity E66.01 Active confirmed 09598 6002 Problem Gastroesophageal reflux disease without esophagitis K21.9 Active confirmed 101980102 Problem Morbid (severe) obesity due to excess calories E66 .01 Active confirmed 502139242 Problem Body mass index (BMI) 37.0-37.9, adult Z68.37 A ctive confirmed 739099234 Problem Obesity (BMI 35.0-39.9 without comorbidity) E66.9 Active confirmed 286171653 Problem Cerebrovascular accident (CVA) due to other mechanism I63.89 Active confirmed 839695077 Problem Atopic dermatitis, unspecified type L20.9 Acti ve confirmed 43761875 Problem Neuropathy G62.9 Active confirmed 877626404 Problem Intrinsic eczema L20.84 Active confirmed 240 28961 Problem ADD (attention deficit disorder) without hyperactivity F98.8 Active confirmed 07547778 Problem BMI 36.0-36.9,adult Z68.36 Active confirmed 722114196 Problem Other chronic pain G89.29 Active confirmed 8 7987869 Problem Arteriovenous malformation Q27.30 Active confirmed 88170477 Problem Paresthesias R20.2 Active confirmed 9951411 4 ALLERGIES Allergen (clinical drug ingredient) Drug/Non Drug Allergy do cumented on EMR Reaction Allergy Type Onset Date Status Latex (for allergy use only) Rash Drug Allergy Active ENCOUNTERS from 1983 to 2021-02-14 Encounter Location Date Provider Diagnosis [facility] [address] [place] [address] Feb, Valorie Ni-uHgh IMMUNIZATIONS Vaccine Route Administration Date Status TDAP [...] y bid for 5 day(s) Dec, Active Emgality 120 MG/ML as directed Subcutaneous Active Gabapentin 600 MG 1 capsule Orally 4xs a day for 30 days 2 October, Active Cymbalta 60 MG 1 capsule Orally Once a day for 90 days Nov, Active Lyrica 50 MG 1 capsule Orally Twice a day for 30 Days 15 2020 Active Aloe Vera 99 % 1 application to sunburn on extremities Externally four times daily for 4 days Nov, Active carBAMazepine 200 MG 1 tablet Orally Twice a day for 30 day(s) Nov, Active Ventolin HFA 108 (90 Base) MCG/ACT 2 puffs as needed I nhalation every 4 hrs for 30 days Feb, Active Adderall 20 MG 1 tab Orally bid for 30 days Feb, Active PROCEDURES No Information RESULTS No Results REASON FOR VISIT New Refill Request MEDICAL (GENERAL) HISTORY Type Description Date Medical [...] finger to nose overshoot Surgical History d&C 2006 Surgical History nerve 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 [facility] and aborted, 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 Hospitalization History delivery Hospitalization History surgery [...] Orall y bid for 5 day(s) Dec, Adderall 20 MG 1 tab Orally bid for 30 days Feb, Gabapentin 600 MG 1 capsule Orally 4xs a day for 30 days October, Lyrica 50 MG 1 capsule Orally Twice a day for 30 Days Dec, Next Appt Details Provider Name:Felice Mckeon, 2021-02-26 10:00:00 AM, [address], , [place], [address], Insurance Providers Payer Name Payer Address Payer Phone Insured Name Patient Relati onship to Insured Coverage Start Date Coverage End Date [facility] COMMUNITY PLAN [facility] [address] [facility] [id number] BETH ENCARNACION self
--- OUTSIDE RECORDS SUMMARY | 2021-04-14 14:40 | CCD ---
Author Author [facility] [employer] [facility] Sy[employer] ems Organization [facility] [employer] Sy[employer] em[employer] Address Unknown Phone Unavailable Care Team Providers Care Communications Project Lead Name Role Phone Valorie Hills Unavailable PROBLEMS Type Condition ICD9-CM Code [id number] Code Onset Dates Condition S tatus W/U Status Risk SNOMED Code Notes Problem Depression, unspecified depression type F32.9 Active confirmed 81339527 Problem Uncomplicated asthma, unspecified asthma severity J45.909 Active confirmed 404214330 Problem Intrinsic eczema L20.84 Active confirmed 240 28336 Problem Obesity, unspecified obesity severity, unspecified obe sity type E66.9 Active confirmed 956859370 Problem Morbid (severe) obesity due to excess calories E66 .01 Active confirmed 035277814 Problem Obesity (BMI 35.0-39.9 without comorbidity) E66.9 Active confirmed 357163718 Problem Nicotine dependence, cigarettes, uncomplicated F17 .210 Active confirmed 82546549 Problem Asthma, unspecified asthma s everity, unspecified whether complicated, unspecified whether persistent J45.909 Active confirmed 637529072 Problem Attention-deficit hyperactivity disorder, combined type F90.2 Active confirmed 13272133 Problem Fatty liver K76.0 Active confirmed 27788066 7 Problem Obesity (BMI 30-39.9) E66.9 Active confirmed 120878160 Problem Gastroesophageal reflux disease without esophagitis K21.9 Active confirmed 012476487 Problem Cigarette nicotine dependence with nicotine-induced di sorder F17.219 Active confirmed 34967867 Problem Morbid obesity E66.01 Active confirmed 75938 6009 Problem Body mass index (BMI) 37.0-37.9, adult Z68.37 A ctive confirmed 671206944 Problem Obstructive sleep apnea G47.33 Active confirmed 89880422 Problem BMI 36.0-36.9,adult Z68.36 Active confirmed 198159953 Problem Neuropathy G62.9 Active confirmed 095841190 Problem ADD (attention deficit disorder) without hyperactivity F98.8 Active confirmed 04968502 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 Active confirmed 409293425 Problem Atopic dermatitis, unspecified type L20.9 Acti ve confirmed 67402284 Problem PCOS (polycystic ovarian syndrome) E28.2 Activ e confirmed 25148145 Problem Other chronic pain G89.29 Active confirmed 8 7318876 Problem Arteriovenous malformation Q27.30 Active confirmed 49769752 Problem Paresthesias R20.2 Active confirmed 1912802 4 Problem Cerebrovascular accident (CVA) due to other mechanism I63.89 Active confirmed 262536372 ALLERGIES Allergen (clinical drug ingredient) Drug/Non Drug Allergy do cumented on EMR Reaction Allergy Type Onset Date Status Latex (for allergy use only) Rash Drug Allergy Active ENCOUNTERS from 1983 to 2021-03-17 Encounter Location Date Provider Diagnosis [id number] [place] [address] Mar, Valorie Ni-Cabreratell IMMUNIZATIONS Vaccine Route Administration Date Status TDAP [...] sites for 28 days Feb, Acti ve carBAMazepine 200 MG TAKE ONE TABLET BY MOUTH TWI CE A DAY Orally Twice a day for 30 days Active Gabapentin 600 MG 1 capsule Orally twice a day October, Active Belbuca 75 MCG 1 film to the gum [place] for pain bid for 30 da ys Feb, Active Aloe Vera 99 % 1 [...] Orally bid for 30 days Mar, Active Cymbalta 60 MG 1 capsule Orally [...] perforated blood vessel and hemorrhagic stroke 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 Hospitalization History delivery Hospitalization History surgery- STAGE 1 AND STAGE 2 EMBOLIZ ATION Hospitalization History brain bleed oct, 2020 Goals Section No Information Health Concerns No Information MEDICAL EQUIPMENT No Information MENTAL STATUS No Information FUNCTIONAL STATUS No Information ASSESSMENTS No Information PLAN OF TREATMENT Medication Medication Name Sig Start Date Stop Date Belbuca 75 MCG 1 film to the gum Bucally for pain bid for 30 da ys Feb, Adderall 20 MG 1 tab Orally bid for 30 days Mar, Triamcinolone Acetonide 0.025 % 1 application External ly to fingers bid for 30 Days Feb, Butrans 5 MCG/HR 1 patch to skin Transdermal change patch every 7 days, alternate sites for 28 days Feb, traMADol HCl 50 MG 1 tablet as needed Orally tw ice daily as needed for severe pain, MDD2 for 30 days Feb, Next Appt Details Provider Name:Felice Mckeon, 2021-04-02 09:00:00 AM, [address], , [place], [address], Provider Name:Valorie Hills, 2021-04-02 04:15:00 PM, [address], , [place], [address], Insurance Providers Payer Name Payer Address Payer Phone Insured Name Patient Relati onship to Insured Coverage Start Date Coverage End Date FOR[facility]LY [facility] [address] [facility] [address] BETH ENCARNACION self
--- OUTSIDE RECORDS SUMMARY | 2021-04-14 14:40 | CCD | Continuity of Care Document ---
Author Brea Terrell M.D. Organization Unknown Address [address] [place] [address] Phone [phone] Care Team Providers Care Chocolate Finisher Name Role Phone Valorie Branch DO AUTM [...] lb BMI (Body Mass Index) 36.0 kg/m2 [place] Body Weight 120 lb 11/21/2020 12:57pm Respiratory Rate 12 /min Height 64 inches 5'4" Weight 210.00 lb BMI (Body Mass Index) 36.0 kg/m2 [place] Body Weight 120 lb Results Description No Information Available Procedures Date Code Description Status 11/21/2020 86264 Office/Outpatient Established Mo d MDM 30-39 Min Completed Medical Devices Description No Information Available Encounters Type Date Location Provider Dx Diagnosis Office Visit 11/21/2020 12:45p Main office - [place] Echo man M.D. Q28.2 Arteriovenous malformation of [...] unspecified Echo Acuna M.D. Plan of Treatment No Information Available Functional Status Description No Information Available Mental Status Description No Information Available Referrals Description No Information Available
--- OUTSIDE RECORDS SUMMARY | 2021-04-14 14:40 | CCD | Continuity of Care Document ---
Author Author Brea [facility] Organization Unknown Address [address] [place] [address] Phone [phone] Care Team Providers Care It Trainer Name Role Phone Valorie Hills D.O. AUTM [phone] AUTM Unavailable AUTM Unavailable Problems Description No Information Available Social History Type Date Description Comments Sex Unknown Cigarette Use Former Cigarette Use Former pt. smoked 1/2 t o 1 pack per day times 20 years. quit 10/25/2020 Tobacco Use Start: Unknown End: Unknown Patient is a former smoker Smoking Status Reviewed: 03/12/21 Patient is a former smoker Allergies, Adverse Reactions, Alerts Description No Known Drug Allergies Medications Active Medications SIG Qnty Indications Ordering Provide r Date Duloxetine HCL 60mg Caps DR Part 1 by mouth daily Unknown Carbamazepine 200mg Tablets 1 by mouth daily Unknown Adderall 20mg Tablets 1 by mouth twice a day Unknown Emgality 120mg/ml Solution Auto-In ject once a month Unknown Gabapentin 600mg Tablets 1 tab by mouth twice a day Unknown Immunizations Description No Information Available Vital Signs Date Vital Result Comment 03/12/2021 9:49am BP Systolic 122 mmHg BP Diastolic 76 mmHg Heart Rate 93 /min O2 % BldC Oximetry 96 % Height 64 inches 5'4" Weight 266.00 lb BMI (Body Mass Index) 45.7 kg/m2 [place] Body Weight 120 lb Neck Circumference in inches 15.5 [place] Score 20 Weight 120.658 kg BSA (Body Surface Area) 2.21 m2 Results Description No Information Available Procedures Date Code Description Status 03/12/2021 31055 Office/Outpatient [facility] 30 -44 Minutes Completed Medical Devices Description No Information Available Encounters Type Date Location Provider Dx Diagnosis Office Visit 03/12/2021 10:00a [facility] Pulmonary/Thoracic Paulina To CECE fragoso G47.30 Sleep apnea, unspecified R06.83 Snoring Assessments Date Code Description Provider 03/12/2021 G47.30 Sleep apnea, unspecified Paulina To CECE fragoso 03/12/2021 R06.83 Snoring CECE Elizalde Plan of Treatment Future Appointment(s):* 03/26/2021 8:00 pm - [facility]Th[facility]acic 03/12/2021 - CECE Elizalde* G47.30 Sleep apnea, unspecified * R06.83 Snoring * * New Orders:* Sleep Home Sleep Test, Scheduled: 03/26/21 * Follow up:* 1. Follow up after KYLEE HST (due to symptoms) Functional Status Description No Information Available Mental Status Description No Information Available Referrals Refer to Dr Reason for Referral Status Appt Date Paulina Workman, A.N.PHeather SNORING Scheduled 03/12/2021 [facility] [address] [place], [place] [address] [phone]
--- OUTSIDE RECORDS SUMMARY | 2021-04-14 14:40 | CCD ---
Author Author [facility] [employer] [facility] Syst ems Organization [facility] [employer] Address Unknown Phone Unavailable Care Team Providers Care Gelatin Maker Utility Name Role Phone Valorie Hills Unavailable PROBLEMS Type Condition ICD9-CM Code [id number] Code Onset Dates Condition S tatus W/U Status Risk SNOMED Code Notes Problem Uncomplicated asthma, unspecified asthma severity J45.909 Active confirmed 428183294 Problem Obesity, unspecified obesity severity, unspecified obe sity type E66.9 Active confirmed 451323656 Problem Depression, unspecified depression type F32.9 Active confirmed 87334991 Problem Obstructive sleep apnea G47.33 Active confirmed 81316898 Problem Cigarette nicotine dependence with nicotine-induced di sorder F17.219 Active confirmed 75251435 Problem Asthma, unspecified asthma s everity, unspecified whether complicated, unspecified whether persistent J45.909 Active confirmed 452427966 Problem PCOS (polycystic ovarian syndrome) E28.2 Activ e confirmed 53512305 Problem Fatty liver K76.0 Active confirmed 77985582 7 Problem Nicotine dependence, cigarettes, uncomplicated F17 .210 Active confirmed 95190157 Problem Obesity (BMI 30-39.9) E66.9 Active confirmed 952435211 Problem Attention-deficit hyperactivity disorder, combined type F90.2 Active confirmed 03832180 Problem Morbid obesity E66.01 Active confirmed 91633 6002 Problem Gastroesophageal reflux disease without esophagitis K21.9 Active confirmed 838719580 Problem Morbid (severe) obesity due to excess calories E66 .01 Active confirmed 040832706 Problem Body mass index (BMI) 37.0-37.9, adult Z68.37 A ctive confirmed 912404219 Problem Obesity (BMI 35.0-39.9 without comorbidity) E66.9 Active confirmed 744907404 Problem Cerebrovascular accident (CVA) due to other mechanism I63.89 Active confirmed 031445281 Problem Atopic dermatitis, unspecified type L20.9 Acti ve confirmed 94029560 Problem Neuropathy G62.9 Active confirmed 113299053 Problem Intrinsic eczema L20.84 Active confirmed 240 90290 Problem ADD (attention deficit disorder) without hyperactivity F98.8 Active confirmed 62766423 Problem BMI 36.0-36.9,adult Z68.36 Active confirmed 227936106 Problem Other chronic pain G89.29 Active confirmed 8 3874357 Problem Arteriovenous malformation Q27.30 Active confirmed 62092834 Problem Paresthesias R20.2 Active confirmed 8385720 4 ALLERGIES Allergen (clinical drug ingredient) Drug/Non Drug Allergy do cumented on EMR Reaction Allergy Type Onset Date Status Latex (for allergy use only) Rash Drug Allergy Active ENCOUNTERS from 1983 to 2021-02-11 Encounter Location Date Provider Diagnosis [id number] [place] [address] Jan, Valorie Ni-Tartell Cerebrovascular accident (CVA) due to ot her mechanism I63.89 and Arteriovenous malformation Q27.30 IMMUNIZATIONS Vaccine Route Administration Date Status TDAP [...] tobacco use, cessation provided REASON FOR REFERRAL from 1983 to 2021-02-11 Reason Patient had a bleeding event during staged repair of AVM; is unsure what the best approach, if any, to her residual AVM is. Please eval and treat. Diagnosis 1 Cerebrovascular accident (CV A) due to other mechanism (I63.89) Referral Organization [facility] Jordon Referring Provider First Name Valorie Referring Provider Last Name Jeana Referring Provider Specialty Family Medicine Referred Provider Chayito Waterman Referred Provider Specialty Neurology Referral Priority Routine General Notes Valorie Hills D O 02/10/2021 1:17:52 PM > Drake Padilla 02/10/2021 5:19:21 PM > Drake Duvall 02/10/2021 5:29:48 PM > ref#[id number] VITAL SIGNS No information MEDICATIONS Medication SIG [...] 1 tab Orally bid for 30 days Jan, Active Aloe Vera 99 % 1 application to sunburn on extremities Externally four times daily for 4 days Nov, Active carBAMazepine 200 MG 1 tablet Orally Twice a day for 30 day(s) Nov, Active Ventolin HFA 108 (90 Base) MCG/ACT 2 puffs as needed I nhalation every 4 hrs for 30 days Feb, Active Lyrica 50 MG 1 capsule Orally Twice a day for 30 Days 15 2020 Active PROCEDURES No Information RESULTS No Results REASON FOR VISIT referral? maybe? 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 Hospitalization History delivery Hospitalization History surgery Hospitalization History brain bleed oct, 2020 Goals Section No Information Health Concerns No Information MEDICAL EQUIPMENT No Information MENTAL STATUS No Information FUNCTIONAL STATUS No Information ASSESSMENTS Encounter Date Diagnosis Assessment Notes Treatment Notes Treatm ent Clinical Notes Jan, Cerebrovascular accident (CV A) due to other mechanism (ICD-10 - I63.89) Jan, Arteriovenous malformation (ICD-10 - Q27.30) PLAN OF TREATMENT Medication Medication Name Sig Start Date Stop Date Cymbalta 60 MG 1 capsule Orally Once a day for 90 days Nov, Cyclobenzaprine HCl 5 MG 1 tablet at bedtime as needed Orall y bid for 5 day(s) Dec, Lyrica 50 MG 1 capsule Orally Twice a day for 30 Days Dec, Gabapentin 600 MG 1 capsule Orally 4xs a day for 30 days October, Adderall 20 MG 1 tab Orally bid for 30 days Jan, Referrals Referral Date Details Patient had a bleeding event during staged repair of AVM; is unsure what the best approach, if any, to her residual AVM is. Please eval and treat. Next Appt Details Provider Name:Felice Mckeon, 2021-02-26 10:00:00 AM, [address], , [place], [address], Insurance Providers Payer Name Payer Address Payer Phone Insured Name Patient Relati onship to Insured Coverage Start Date Coverage End Date [facility] [address] [facility] [phone] BETH ENCARNACION self
--- OUTSIDE RECORDS SUMMARY | 2021-04-14 14:40 | CCD ---
Author Author [facility] Sy[employer] Organization [facility] [employer] Address Unknown Phone Unavailable Care Team Providers Care Systems Protection Technician Name Role Phone Felice Mckeon Unavailable PROBLEMS Type Condition ICD9-CM Code QEM38-OY Code Onset Dates Condition S tatus W/U Status Risk SNOMED Code Notes Problem Depression, unspecified depression type F32.9 Active confirmed 82388726 Problem Uncomplicated asthma, unspecified asthma severity J45.909 Active confirmed 526973654 Problem Intrinsic eczema L20.84 Active confirmed 240 82446 Problem Obesity, unspecified obesity severity, unspecified obe sity type E66.9 Active confirmed 220740863 Problem Morbid (severe) obesity due to excess calories E66 .01 Active confirmed 979523111 Problem Obesity (BMI 35.0-39.9 without comorbidity) E66.9 Active confirmed 704159072 Problem Nicotine dependence, cigarettes, uncomplicated F17 .210 Active confirmed 67439087 Problem Asthma, unspecified asthma s everity, unspecified whether complicated, unspecified whether persistent J45.909 Active confirmed 630088414 Problem Attention-deficit hyperactivity disorder, combined type F90.2 Active confirmed 12868087 Problem Fatty liver K76.0 Active confirmed 87180507 7 Problem Obesity (BMI 30-39.9) E66.9 Active confirmed 293087806 Problem Gastroesophageal reflux disease without esophagitis K21.9 Active confirmed 451784640 Problem Cigarette nicotine dependence with nicotine-induced di sorder F17.219 Active confirmed 50638464 Problem Morbid obesity E66.01 Active confirmed 81494 600 Problem Body mass index (BMI) 37.0-37.9, adult Z68.37 A ctive confirmed 430687807 Problem Obstructive sleep apnea G47.33 Active confirmed 42860805 Problem BMI 36.0-36.9,adult Z68.36 Active confirmed 203174820 Problem Neuropathy G62.9 Active confirmed 242968496 Problem ADD (attention deficit disorder) without hyperactivity F98.8 Active confirmed 16732792 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 Active confirmed 834939713 Problem Atopic dermatitis, unspecified type L20.9 Acti ve confirmed 68084959 Problem PCOS (polycystic ovarian syndrome) E28.2 Activ e confirmed 54080154 Problem Other chronic pain G89.29 Active confirmed 8 7558168 Problem Arteriovenous malformation Q27.30 Active confirmed 54754342 Problem Paresthesias R20.2 Active confirmed 3207273 4 Problem Cerebrovascular accident (CVA) due to other mechanism I63.89 Active confirmed 409132557 ALLERGIES Allergen (clinical drug ingredient) Drug/Non Drug Allergy do cumented on EMR Reaction Allergy Type Onset Date Status Latex (for allergy use only) Rash Drug Allergy Active ENCOUNTERS from 1983 to 2021-03-06 Encounter Location Date Provider Diagnosis [facility] [address] Floor [phone] [place] [address] Feb, Felice Mckeon IMMUNIZATIONS Vaccine Route Administration [...] Information RESULTS No Results REASON FOR VISIT Tramadol MEDICAL (GENERAL) HISTORY Type Description Date Medical [...] perforated blood vessel and hemorrhagic stroke 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 Hospitalization History delivery Hospitalization History surgery- [...] Details Provider Name:Valorie Hills, 2021-03-12 01:00:00 PM, [address], , [place], [address], Provider Name:Felice Mckeon, 2021-04-02 09:00:00 AM, [address], , [place], [address], Insurance Providers Payer Name Payer Address Payer Phone Insured Name Patient Relati onship to Insured Coverage Start Date Coverage End Date FOR[facility]LY [facility]AN [facility] [address] [facility] [phone] [phone] BETH ENCARNACION self
--- OUTSIDE RECORDS SUMMARY | 2021-04-14 14:40 | CCD ---
Author Author [facility] Syst ems Organization [facility] [employer] Address Unknown Phone Unavailable Care Team Providers Care Water Resources Technical Officer Name Role Phone Valorie Hills Unavailable PROBLEMS Type Condition ICD9-CM Code [id number] Code Onset Dates Condition S tatus W/U Status Risk SNOMED Code Notes Problem Depression, unspecified depression type F32.9 Active confirmed 30464742 Problem Uncomplicated asthma, unspecified asthma severity J45.909 Active confirmed 713014851 Problem Intrinsic eczema L20.84 Active confirmed 240 20495 Problem Obesity, unspecified obesity severity, unspecified obe sity type E66.9 Active confirmed 733032257 Problem Morbid (severe) obesity due to excess calories E66 .01 Active confirmed 153387219 Problem Obesity (BMI 35.0-39.9 without comorbidity) E66.9 Active confirmed 776378727 Problem Nicotine dependence, cigarettes, uncomplicated F17 .210 Active confirmed 26417073 Problem Asthma, unspecified asthma s everity, unspecified whether complicated, unspecified whether persistent J45.909 Active confirmed 658952771 Problem Attention-deficit hyperactivity disorder, combined type F90.2 Active confirmed 41450758 Problem Fatty liver K76.0 Active confirmed 47366812 7 Problem Obesity (BMI 30-39.9) E66.9 Active confirmed 463918957 Problem Gastroesophageal reflux disease without esophagitis K21.9 Active confirmed 071793826 Problem Cigarette nicotine dependence with nicotine-induced di sorder F17.219 Active confirmed 68618574 Problem Morbid obesity E66.01 Active confirmed 96716 6003 Problem Body mass index (BMI) 37.0-37.9, adult Z68.37 A ctive confirmed 487712495 Problem Obstructive sleep apnea G47.33 Active confirmed 46605895 Problem BMI 36.0-36.9,adult Z68.36 Active confirmed 882689981 Problem Neuropathy G62.9 Active confirmed 761259057 Problem ADD (attention deficit disorder) without hyperactivity F98.8 Active confirmed 20125896 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 Active confirmed 355682901 Problem Atopic dermatitis, unspecified type L20.9 Acti ve confirmed 06162673 Problem PCOS (polycystic ovarian syndrome) E28.2 Activ e confirmed 69534706 Problem Other chronic pain G89.29 Active confirmed 8 9108220 Problem Arteriovenous malformation Q27.30 Active confirmed 15357186 Problem Paresthesias R20.2 Active confirmed 6848123 4 Problem Cerebrovascular accident (CVA) due to other mechanism I63.89 Active confirmed 037188738 ALLERGIES Allergen (clinical drug ingredient) Drug/Non Drug Allergy do cumented on EMR Reaction Allergy Type Onset Date Status Latex (for allergy use only) Rash Drug Allergy Active ENCOUNTERS from 1983 to 2021-03-14 Encounter Location Date Provider Diagnosis [id number] [place] [address] Feb, 2021 Valorie Ni-Tartell Unintended weight gain R63.5 ; Eczema, u nspecified type L30.9 and Lymphadenopathy R59.1 IMMUNIZATIONS Vaccine Route Administration Date Status TDAP [...] FOR REFERRAL No Information VITAL SIGNS Weight 264.6 lbs Feb, Weight-kg 120.02 kg Feb, Height 5'4" in Feb, BMI 45.41 kg/m2 Feb, Heart Rate 117 /min Feb, Respiratory Rate 18 /min Feb, Temperature 98.0 degrees Fahrenheit Feb, Oximetry 97 Feb, Blood pressure systolic 132 mm Hg Feb, Blood pressure diastolic 86 mm Hg Feb, MEDICATIONS Medication SIG (Take, [...] No Results REASON FOR VISIT bumps on fingers, right hand bumps on fingers , just wants it looked at MEDICAL (GENERAL) HISTORY Type Description Date Medical [...] perforated blood vessel and hemorrhagic stroke 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 Feb, Eczema, unspecified type (ICD-10 - L30.9) Topical steroid for eczema on R fingers. Feb, Lymphadenopathy (ICD-10 - R59.1) US ordered to evaluate a couple weeks of painless lymphadenopathy R axilla. Feb, Other She had concern about her tongue after seeing her dentist, but the previous lesion was not seen on exam today. Will monitor her blood pressure, recheck next week. PLAN OF TREATMENT Medication Medication Name Sig [...] for severe pain, MDD2 for 30 days 22 Feb, 2021 Triamcinolone Acetonide 0.025 % 1 application External ly to fingers bid for 30 Days Feb, Treatment Notes Assessment Notes Clinical Notes Unintended weight gain She is potentiall y interested in a medication like Ozempic; we will check her hemoglobin A1C. Eczema, unspecified type Topical steroid for eczema on R fingers. Lymphadenopathy US ordered to evalua te a couple weeks of painless lymphadenopathy R axilla. Future Test Test Name Order Date [facility] [place] [id number] Comprehensive Metabolic Profile (CMP) [id number] HEMOGLOBIN A1c [id number] Next Appt Details 1-2 weeks Reason: Provider Name:Felice Mckeon, 2021-04-02 09:00:00 AM, [address], , [place], [address], Provider Name:Valorie Hills, 2021-04-02 04:15:00 PM, [address], , [place], [address], Insurance Providers Payer Name Payer Address Payer Phone Insured Name Patient Relati onship to Insured Coverage Start Date Coverage End Date FOR[facility] [address] [facility] [phone] BETH ENCARNACION self
--- OUTSIDE RECORDS SUMMARY | 2021-04-14 14:40 | CCD ---
Author Author [facility] Organization [facility] [employer] Address Unknown Phone Unavailable Care Team Providers Care City Supervisor Name Role Phone Valorie Hills Unavailable PROBLEMS Type Condition ICD9-CM Code [id number] Code Onset Dates Condition S tatus W/U Status Risk SNOMED Code Notes Problem Depression, unspecified depression type F32.9 Active confirmed 25529821 Problem Uncomplicated asthma, unspecified asthma severity J45.909 Active confirmed 124211740 Problem Intrinsic eczema L20.84 Active confirmed 240 66178 Problem Obesity, unspecified obesity severity, unspecified obe sity type E66.9 Active confirmed 621428618 Problem Morbid (severe) obesity due to excess calories E66 .01 Active confirmed 448412589 Problem Obesity (BMI 35.0-39.9 without comorbidity) E66.9 Active confirmed 738665306 Problem Nicotine dependence, cigarettes, uncomplicated F17 .210 Active confirmed 51826718 Problem Asthma, unspecified asthma s everity, unspecified whether complicated, unspecified whether persistent J45.909 Active confirmed 605424154 Problem Attention-deficit hyperactivity disorder, combined type F90.2 Active confirmed 24580180 Problem Fatty liver K76.0 Active confirmed 61680975 7 Problem Obesity (BMI 30-39.9) E66.9 Active confirmed 204878301 Problem Gastroesophageal reflux disease without esophagitis K21.9 Active confirmed 591191242 Problem Cigarette nicotine dependence with nicotine-induced di sorder F17.219 Active confirmed 80110749 Problem Morbid obesity E66.01 Active confirmed 39096 6000 Problem Body mass index (BMI) 37.0-37.9, adult Z68.37 A ctive confirmed 202798858 Problem Obstructive sleep apnea G47.33 Active confirmed 32170232 Problem BMI 36.0-36.9,adult Z68.36 Active confirmed 427545865 Problem Neuropathy G62.9 Active confirmed 518685385 Problem ADD (attention deficit disorder) without hyperactivity F98.8 Active confirmed 54235058 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 Active confirmed 707567527 Problem Atopic dermatitis, unspecified type L20.9 Acti ve confirmed 43859146 Problem PCOS (polycystic ovarian syndrome) E28.2 Activ e confirmed 90039313 Problem Other chronic pain G89.29 Active confirmed 8 1405540 Problem Arteriovenous malformation Q27.30 Active confirmed 04559877 Problem Paresthesias R20.2 Active confirmed 5519251 4 Problem Cerebrovascular accident (CVA) due to other mechanism I63.89 Active confirmed 181484100 ALLERGIES Allergen (clinical drug ingredient) Drug/Non Drug Allergy do cumented on EMR Reaction Allergy Type Onset Date Status Latex (for allergy use only) Rash Drug Allergy Active ENCOUNTERS from 1983 to 2021-03-17 Encounter Location Date Provider Diagnosis [id number] [place] [address] Mar, Valorie Ni-Cabreratell IMMUNIZATIONS Vaccine Route [...] perforated blood vessel and hemorrhagic stroke L [facility]OST[facility]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 History delivery Hospitalization History [...] Name:Felice Mckeon, 2021-04-02 09:00:00 AM, [address], , [place], [address], Provider Name:Valorie Hills, 2021-04-02 04:15:00 PM, [address], , [place], [address], Insurance Providers Payer Name Payer Address Payer Phone Insured Name Patient Relati onship to Insured Coverage Start Date Coverage End Date [facility] [id number] [facility] [phone] BETH ENCARNACION self
--- OUTSIDE RECORDS SUMMARY | 2021-04-14 14:40 | CCD ---
Author Author [facility] [employer] [facility] [employer] Organization [facility] [employer] Sy[employer] Address Unknown Phone Unavailable Care Team Providers Care Weight Count Operator Name Role Phone Valorie Hills Unavailable PROBLEMS Type Condition ICD9-CM Code [id number] Code Onset Dates Condition S tatus W/U Status Risk SNOMED Code Notes Problem Uncomplicated asthma, unspecified asthma severity J45.909 Active confirmed 607251636 Problem Obesity, unspecified obesity severity, unspecified obe sity type E66.9 Active confirmed 000629846 Problem Depression, unspecified depression type F32.9 Active confirmed 92832914 Problem Obstructive sleep apnea G47.33 Active confirmed 98461776 Problem Cigarette nicotine dependence with nicotine-induced di sorder F17.219 Active confirmed 72709214 Problem Asthma, unspecified asthma s everity, unspecified whether complicated, unspecified whether persistent J45.909 Active confirmed 520993247 Problem PCOS (polycystic ovarian syndrome) E28.2 Activ e confirmed 82953652 Problem Fatty liver K76.0 Active confirmed 18748302 7 Problem Nicotine dependence, cigarettes, uncomplicated F17 .210 Active confirmed 00040483 Problem Obesity (BMI 30-39.9) E66.9 Active confirmed 352284721 Problem Attention-deficit hyperactivity disorder, combined type F90.2 Active confirmed 13817753 Problem Morbid obesity E66.01 Active confirmed 79536 6002 Problem Gastroesophageal reflux disease without esophagitis K21.9 Active confirmed 986309484 Problem Morbid (severe) obesity due to excess calories E66 .01 Active confirmed 126218322 Problem Body mass index (BMI) 37.0-37.9, adult Z68.37 A ctive confirmed 507822485 Problem Obesity (BMI 35.0-39.9 without comorbidity) E66.9 Active confirmed 468948593 Problem Cerebrovascular accident (CVA) due to other mechanism I63.89 Active confirmed 285043378 Problem Atopic dermatitis, unspecified type L20.9 Acti ve confirmed 65887790 Problem Neuropathy G62.9 Active confirmed 270039233 Problem Intrinsic eczema L20.84 Active confirmed 240 55228 Problem ADD (attention deficit disorder) without hyperactivity F98.8 Active confirmed 87498170 Problem BMI 36.0-36.9,adult Z68.36 Active confirmed 748223351 Problem Other chronic pain G89.29 Active confirmed 8 4699377 Problem Arteriovenous malformation Q27.30 Active confirmed 68143050 Problem Paresthesias R20.2 Active confirmed 6773890 4 ALLERGIES Allergen (clinical drug ingredient) Drug/Non Drug Allergy do cumented on EMR Reaction Allergy Type Onset Date Status Latex (for allergy use only) Rash Drug Allergy Active ENCOUNTERS from 1983 to 2021-02-19 Encounter Location Date Provider Diagnosis [facility] [address] [place] [address] Feb, Valorie Ni-Hugh IMMUNIZATIONS Vaccine Route [...] perforated blood vessel and hemorrhagic stroke L GROUNDMAN/LINEMAN 10/25/2020 Hospitalization History delivery Hospitalization History surgery [...] Details Provider Name:Valorie Hills, 2021-02-26 08:30:00 AM, [address] [address], , [place], [address], Provider Name:Felice Mckeon, 2021-02-26 10:00:00 AM, [address], , [place], [address], Insurance Providers Payer Name Payer Address Payer Phone Insured Name Patient Relati onship to Insured Coverage Start Date Coverage End Date [facility] [address] [facility] [phone] BETH ENCARNACION self
--- OUTSIDE RECORDS SUMMARY | 2021-04-14 14:41 | CCD | Continuity of Care Document ---
Author Author Brea CADENA MD Organization Unknown Address [address], [address] [place] [address] Phone [phone] Care Team Providers Care [employer] Principal Name Role Phone Echo Acuna Md AUTM [phone] Valorie Ledezma D.O. AUTM [phone] Problems Active Problems Provider Date Headache Onset: Migraine Onset: Social History Type Date Description Comments Sex Unknown ETOH Use Denies alcohol use Recreational Drug Use Denies Drug Use Tobacco Use Start: Unknown End: Unknown Patient is a former smoker Smoked 1 ppd for 23 years Quit in 2020 Smoking Status Reviewed: 12/31/20 Patient is a former smoker Sm oked 1 ppd for 23 years Quit in 2020 Allergies, Adverse Reactions, Alerts Description No Known Drug Allergies Medications Active Medications SIG Qnty Indications Ordering Provide r Date Gabapentin 600mg Tablets take 1 tabs by mouth four times daily. (Titrate the dose gradually upto 900 mg by taking another 300 mg tab 4 times a day needed 180tabs Lexa Padilla MD 11/12/2020 Amphetamine-Dextroamphetamine 20mg Tablets Take One Tablet By Mouth Twice A Day Maximum Daily Dose 2 Unknown Albuterol Sulfate HFA 108(90Base) mcg/Act Aerosol Inhale 2 Puffs Needed Every 4 Hours Un known Carbamazepine 200mg Tablets Take One Tablet By Mouth Twice A Day Unknown Duloxetine HCL 60mg Caps DR Part Take One Capsule By Mouth Every Day Unknown Emgality 120mg/ml Solution Auto-In ject Inject 1 Pen Under The Skin Once A Month For Migraine Prevention Unknown History Medications Gabapentin 300mg Capsules take 3 tabs by mouth four times daily. (Titrate the dose gradually upto 900 mg 4 times a day) 360caps Lexa Padilla MD 11/12/2020 - 021 Immunizations CPT Code Status Date Vaccine Lot # [id number] Given 09/13/2020 [employer] Covid-19 Sars-Cov-2, mRNA, LNP-S, PF, 30 mcg/ 0.3 mL [id number] Given 08/23/2020 Pfizer Covid-19 Sars-Cov-2, mRNA, LNP-S, PF, 30 mcg/ 0.3 mL Vital Signs Date Vital Result Comment 11/29/2020 3:43pm Height 64.75 inches 5'4.75" Weight 245.00 lb BMI (Body Mass Index) 41.1 kg/m2 BP Systolic 130 mmHg BP Diastolic 86 mmHg Heart Rate 109 /min Body Temperature 98.6 F Body Temperature 37.0 C 08/07/2020 2:10pm Height 64.75 inches 5'4.75" Weight 215.00 lb BMI (Body Mass Index) 36.1 kg/m2 BP Systolic 126 mmHg BP Diastolic 92 mmHg Heart Rate 99 /min Body Temperature 98.0 F Body Temperature 36.7 C Results Test Acquired Date Facility Test Result H/L Range Note Coronavirus 2019 Nasopharygeal 10/21/[address] [id number] [phone] Coronavirus 2019 Nasopharygeal ASSAY INFORMATIO <SEE N OTE> 1 CBC With Differential 10/08/[address] [id number] [phone] White Blood Count 10.0 10 Normal 4.0-10.0 Red Blood Count 4.42 10 Normal 4.00-5.40 Hemoglobin 12.8 g/dL Normal 12.0-15.5 Hematocrit 39.7 % Normal 36.0-47.0 Mean Corpuscular Volume 89.8 fl Normal 80.0-96.0 Mean Corpuscular Hemoglobin 29.0 pg Normal 27.0-33.0 Mean Corpuscular HGB Conc 32.2 g/dL Normal 32.0-36.5 Red Cell Distribution Width 12.3 % Normal 11.5-14.5 Platelet Count, Automated 277 10 Normal 150-450 Neutrophils % 62.6 % Normal 36.0-66.0 Lymph % 28.5 % Normal 24.0-44.0 [place] % 5.9 % Normal 2.0-8.0 Eos % 1.9 % Normal 0.0-3.0 Baso % 0.7 % Normal 0.0-1.0 Immature Granulocyte % 0.4 % Normal 0-3.0 Nucleated Red Blood Cell % 0.0 % Normal 0-0 Neutrophils # 6.3 10 Normal 1.5-8.5 Lymph # 2.9 10 Normal 1.5-5.0 Charlotte # 0.6 10 Normal 0.0-0.8 Eos # 0.2 10 Normal 0.0-0.5 Baso # 0.1 10 Normal 0.0-0.2 PT & Aptt 10/08/2020 [facility] nter [address] [place] [address] [id number] [phone] Prothrombin Time 12.3 seconds Normal 12.5-14.3 Inr 0.90 Normal 2 Partial Thromboplastin Time 20.8 seconds Low 24.2-38.5 Basic Metabolic Profile 10/08/[address] [id number] [phone] Glucose, Fasting 89 mg/dL Normal 70-100 Blood Urea Nitrogen 11 mg/dL Normal 7-18 Creatinine For GFR 0.97 mg/dL Normal 0.55-1.30 Glomerular Filtration Rate > 60.0 Normal >60 3 Sodium Level 139 mEq/L Normal 136-145 Potassium Serum 3.9 mEq/L Normal 3.5-5.1 Chloride Level 107 mEq/L Normal 98-107 Carbon Dioxide Level 25 mEq/L Normal 21-32 Anion Gap 7 mEq/L Low 8-16 Calcium Level 8.8 mg/dL Normal 8.5-10.1 Coronavirus 2019 Nasopharygeal 09/04/[address] [address] [phone] Coronavirus 2019 Nasopharygeal This nucleic aci <SEE N OTE> 4 Sars-CoV-2, Triny 2 Day Tat Performed at: E <SEE NOTE> 5 Coronavirus 2019 Nasopharygeal 08/10/2020 [facility] [address] [place] [address] [phone] Coronavirus 2019 Nasopharygeal This nucleic aci <SEE N OTE> 6 BMP-Female 08/07/2020 [facility] [address] [place] [address] [phone] Glucose 91 mg/dL 74-106 7 BUN 13 mg/dL 6-20 Creatinine 1.0 mg/dL 0.5-1.3 Sodium 137 mmol/L 136-145 Potassium 4.1 mmol/L 3.5-5.3 Chloride 104 mmol/L 98-107 Co2 26 mEq/L 20-31 Anion Gap 7 mmol/L 7-16 eGFR-female 63 mL/m/1.73m - eGFR-Aa female 76 mL/m/1.73m - 8 Calcium 8.9 mg/dL 8.9-10.5 Cbcadp 08/07/2020 [facility] [address] [place] [address] [phone] WBC. 12.60 x10E3/uL High 4.2-12.0 RBC 4.70 x10E6/uL 3.9-5.4 HGB 14.0 g/dL 12.0-16.0 HCT 42.9 % 36-47 MCV 91.3 fL 80-98 MCH 29.9 pg 27-33 MCHC 32.7 g/dL 32-36 RDW 12.9 % 11.2-15.2 PLT 280 x10E3/uL 135-420 MPV 7.2 fL 7.0-12.3 % [place] 72.1 % 41.0-80.0 %Lym 22.2 % 10.0-45.2 %Charlotte 4.1 % 2.0-13.0 %Eos 1.2 % 0.0-8.0 %Baso 0.5 % 0.0-3.0 Neut 9.1 x10E3/uL High 2.0-8.1 Lymp 2.8 x10E3/uL 0.6-3.1 Charlotte 0.5 x10E3/uL 0.0-1.0 Eos 0.2 x10E3/uL 0.0-0.6 Baso 0.1 x10E3/uL 0.0-0.2 Laboratory test finding 08/07/2020 [facility] [address] [place] [address] [phone] HCG Quant <2 miu/ml - 9 PT-Inr 08/07/2020 [facility] [address] [place] [address] [phone] PT 12.0 Sec 10.9-14.5 Inr 0.9 - 10 Laboratory test finding 08/07/2020 [facility] [address] [place] [address] [phone] PTT 29.1 Sec 24.7-34.7 11 Venipuncture DONE - 1 ASSAY INFORMATION: Real Time RT-PCR NOTE: The COVID-19 assay has been cleared by the U.S. Food and Drug Administration under the Emergency Use Authorization (EUA). [facility] [facility] and [facility] are designated as high complexity laboratories by the Clinical Laboratory Improvement Amendments of 1988(CLIA) and are qualified to perform this test. Not Detected 2 THERAPUTIC HUMAN INR VALUES INDICATIONS NORMAL RANGES PROPHYLAXIS/TREATMENT OF: VENOUS THROMBOSIS 2.0-3.0 PULMONARY EMBOLISM 2.0-3.0 PREVENTION OF SYSTEMIC EMBOLISM FROM: TISSUE HEART VALVES 2.0-3.0 ACUTE MYOCARDIAL INFARCTION 2.0-3.0 VALVULAR HEART DISEASE 2.0-3.0 ATRIAL FIBRILLATION 2.0-3.0 MECHANICAL VALVES(HIGH RISK) 2.5-3.5 RECURRENT MYOCARDIAL INFARCTION 2.5-3.5 3 Units are mL/min/1.73 m2 Chronic Kidney Disease Staging per NKF: Stage I & II GFR >=60 Normal to Mildly Decreased Stage III GFR 30-59 Moderately Decreased Stage IV GFR 15-29 Severely Decreased Stage V GFR <15 Very Little GFR Left ESRD GFR <15 on CLINICAL NURSING MANAGER 4 This nucleic acid amplificat ion test was developed and its performance characteristics determined by [employer]. Nucleic acid amplification tests include RT- PCR and TMA. This test has not been FDA cleared or approved. This test has been authorized by FDA under an Emergency Use Authorization (EUA). This test is only authorized for the duration of time the declaration that circumstances exist justifying the authorization of the emergency use of in vitro diagnostic tests for detection of SARS-CoV-2 virus and/or diagnosis of COVID-19 infection under section 564(b)(1) of the Act, 21 U.S.C. 360bbb-3(b) (1), unless the authorization is termina abhilash or revoked sooner. When diagnostic testing is negative, the possibility of a false negative result should be considered in the context of a patient's recent exposures and the presence of clinical signs and symptoms consistent with COVID-19. An individual without symptoms of COVID-19 and who is not shedding SARS-CoV-2 virus would expect to have a negative (not detected) result in this assay. Not Detected 5 Performed at: [facility] [address], [place] [id number] Manager Of Software Development: Christin Laurent PhD, Phone: [phone] Performed at: [address] [id number] Manager Of Software Development: Leslie Musa MD, Phone: [phone] Performed 6 This nucleic acid amplificat ion test was developed and its performance characteristics determined by [employer]. Nucleic acid amplification tests include RT- PCR and TMA. This test has not been FDA cleared or approved. This test has been authorized by FDA under an Emergency Use Authorization (EUA). This test is only authorized for the duration of time the declaration that circumstances exist justifying the authorization of the emergency use of in vitro diagnostic tests for detection of SARS-CoV-2 virus and/or diagnosis of COVID-19 infection under section 564(b)(1) of the Act, 21 U.S.C. 360bbb-3(b) (1), unless the authorization is termina abhilash or revoked sooner. When diagnostic testing is negative, the possibility of a false negative result should be considered in the context of a patient's recent exposures and the presence of clinical signs and symptoms consistent with COVID-19. An individual without symptoms of COVID-19 and who is not shedding SARS-CoV-2 virus would expect to have a negative (not detected) result in this assay. Performed at: [address] [id number] Manager Of Software Development: Leslie Musa MD, Phone: [phone] Not Detected 7 [employer] n (ADA) Recommended Range is 65-99 mg/dL 8 Normal Kidney Function or Mi ld Disease GFR >59 mL/min/1.73m2 Chronic Kidney Disease GFR 15-59 mL/min/1.73m2 Renal Failure GFR <15 mL/min/1.73m2 9 HCG Interpretation: Less Than 5.0 miu/ml - Either no HCG or too low to be clinically significant. 5.0 - 25.0 miu/ml - Equivocal result. Sh ould be repeated after 48 hours. A test result less than 25.0 should be interpreted in conjunction with other laboratory data available to the physician. Greater than 25.0 miu/ml - Clinically significant. 10 [facility] and transmitted 160 0 maria alejandra 08/07/2020 * INR Interpretation : . Recommended Theraputic Range: 2.0 - 3.0 . For treatment/prophylaxis . of venous thrombosis, . prevention of embolism. . . 11 Note normal range update due to new reagent lot 01/25/2020 Procedures Date Code Description Status 12/31/2020 33231 Office/Outpatient Established Mo d MDM 30-39 Min Completed 11/29/2020 38320 Office/Outpatient Established Hi gh MDM 40-54 Min Completed 11/17/2020 69298 Subsequent Observation Care, Per Day, 15 Minutes Completed 11/16/2020 00794 Initial Observation Care -Modera te Severity Completed 10/27/2020 13931 Hospital Discharge Day > 30 Danielle nicanor Completed 10/26/2020 26710 Hospital Subsequent Care Level 2 Completed 10/25/2020 62886 Moderate Sedation Se rvices; Same Phys Intl 15 Mins; PT >= 5 Years Completed 10/25/2020 34652 Each Intracranial Branch Of The Internal Corotid/Vertebral Completed 10/25/2020 34816 Vertebral Artery Catheter Placem ent Completed 10/01/2020 25864 Office/Outpatient Established Mo d MDM 30-39 Min Completed 09/10/2020 72918 Hospital Discharge Day > 30 Danielle nicanor Completed 09/09/2020 53356 Angiogram For Transcatheter Ther apy Embolization Or Infusion Completed 09/09/2020 29970 Catheter Placement A rterial System Init 3RD Ord Thoracic/Brachioc Completed 09/09/2020 23663 Catheter Placement A rterial System Addtl 2ND Ord/3RD Ord Thor/BRC Completed 09/09/2020 57879 Transcatheter Perman ent Occlusion/Embolization Percutaneous BOREMATIC MACHINE OPERATOR Completed 09/09/2020 13844 Transcatheter Therapy Embolizati on Any Method Completed 09/09/2020 40422 Moderate Sedation Se rvices; Same Phys Intl 15 Mins; PT >= 5 Years Completed 08/23/2020 34856 Smoking & Tobacco Ce ssation Counseling Visit Intermediate 3-10Min Completed 08/23/2020 92735 Office/Outpatient Established Hi gh MDM 40-54 Min Completed 08/15/2020 22808 Moderate Sedation Se rvices; Same Phys Intl 15 Mins; PT >= 5 Years Completed 08/15/2020 28639 External Artery Carotid Cath PLM NT Completed 08/15/2020 10665 Vertebral Artery Catheter Placem ent Completed 08/15/2020 37501 Angiography Internal Corotid Of The Ipsil Intrac Circulation Completed 08/07/2020 47063 Smoking & Tobacco Ce ssation Counseling Visit Intermediate 3-10Min Completed 08/07/2020 02197 Office/Outpatient New Moderate M DM 45-59 Minutes Completed Medical Devices Description No Information Available Encounters Type Date Location Provider Dx Diagnosis Office Visit 12/31/2020 1:00p [facility] Neurosurgery Rudy Cadena MD Q 28.2 Arteriovenous malformation of cerebral vessels Z86.73 Prsnl hx of TIA (TIA), and c ereb infrc w/o resid deficits Office Visit 11/29/2020 3:20p [facility] Neurosurgery Lexa Padilla MD Q2 8.2 Arteriovenous malformation of cerebral vessels I63.9 Cerebral infarction, unspeci fied M79.601 Pain in right arm R51.9 Headache, unspecified Office Visit 11/17/2020 2:35a [facility] Neurosurgery Rudy Cadena MD R 51.9 Headache, unspecified R93.0 Abnormal findings on DX imag ing of skull and head, NEC Office Visit 11/16/2020 2:35a [facility] Tejal Cadena MD R 51.9 Headache, unspecified R93.0 Abnormal findings on DX imag ing of skull and head, NEC Q28.2 Arteriovenous malformation o f cerebral vessels Office Visit 10/27/2020 11:11a [facility] Neurosurgery Lexa Padilla MD Z4 8.812 Encntr for surgical aftcr following surgery on the circ sys Q28.2 Arteriovenous malformation o f cerebral vessels Office Visit 10/26/2020 2:36a [facility] Neurosurgery Lexa Padilla MD Q2 8.2 Arteriovenous malformation of cerebral vessels Z48.812 Encntr for surgical aftcr fo llowing surgery on the circ sys Office Visit 10/01/2020 11:40a [facility] Neurosurgery Lexa Padilla MD Q2 8.2 Arteriovenous malformation of cerebral vessels F17.210 Nicotine dependence, cigaret nicanor, uncomplicated Office Visit 09/10/2020 2:51a [facility] Neurosurgery Lexa Padilla MD Z4 8.812 Encntr for surgical aftcr following surgery on the circ sys Q28.2 Arteriovenous malformation o f cerebral vessels Office Visit 08/23/2020 3:00p [facility] Neurosurgery Lexa Padilla MD Q2 8.2 Arteriovenous malformation of cerebral vessels F17.210 Nicotine dependence, cigaret nicanor, uncomplicated Office Visit 08/07/2020 2:00p [facility] Neurosurgery Lexa Padilla MD Q2 8.2 Arteriovenous malformation of cerebral vessels F17.210 Nicotine dependence, cigaret nicanor, uncomplicated R51.9 Headache, unspecified Assessments Date Code Description Provider 12/31/2020 Q28.2 Arteriovenous malformation of ce rebral vessels Rudy Cadena MD 12/31/2020 Z86.73 Personal history of transient ischemic attack (TIA), and cerebral infarction without residual deficits Rudy Cadena MD 11/29/2020 Q28.2 Arteriovenous malformation of ce rebral vessels Lexa Padilla MD 11/29/2020 I63.9 Cerebral infarction, unspecified Lexa Padilla MD 11/29/2020 M79.601 Pain in right arm Lexa Padilla MD 11/29/2020 R51.9 Headache, unspecified Lexa leo MD 11/17/2020 R51.9 Headache, unspecified Rudy shen MD 11/17/2020 R93.0 Abnormal findings on diagnostic imaging of skull and head, not elsewhere classified Rudy Cadena MD 11/16/2020 R51.9 Headache, unspecified Rudy shen MD 11/16/2020 R93.0 Abnormal findings on diagnostic imaging of skull and head, not elsewhere classified Rudy Cadena MD 11/16/2020 Q28.2 Arteriovenous malformation of ce rebral vessels Rudy Cadena MD 10/27/2020 Z48.812 Encounter for surgic al aftercare following surgery on the circulatory system Lexa Padilla MD 10/27/2020 Q28.2 Arteriovenous malformation of ce rebral vessels Lexa Padilla MD 10/26/2020 Q28.2 Arteriovenous malformation of ce rebral vessels Lexa Padilla MD 10/26/2020 Z48.812 Encounter for surgic al aftercare following surgery on the circulatory system Lexa Padilla MD 10/25/2020 Q28.2 Arteriovenous malformation of ce rebral vessels Lexa Padilla MD 10/01/2020 Q28.2 Arteriovenous malformation of ce rebral vessels Lexa Padilla MD 10/01/2020 F17.210 Nicotine dependence, cigarettes, uncomplicated Lexa Padilla MD 09/10/2020 Z48.812 Encounter for surgic al aftercare following surgery on the circulatory system Lexa Padilla MD 09/10/2020 Q28.2 Arteriovenous malformation of ce rebral vessels Lexa Padilla MD 09/09/2020 Q28.2 Arteriovenous malformation of ce rebral vessels Lexa Padilla MD 08/23/2020 Q28.2 Arteriovenous malformation of ce rebral vessels Lexa Padilla MD 08/23/2020 F17.210 Nicotine dependence, cigarettes, uncomplicated Lexa Padilla MD 08/15/2020 Q28.2 Arteriovenous malformation of ce rebral vessels Lexa Padilla MD 08/07/2020 Q28.2 Arteriovenous malformation of ce rebral vessels Lexa Padilla MD 08/07/2020 F17.210 Nicotine dependence, cigarettes, uncomplicated Lexa Padilla MD 08/07/2020 R51.9 Headache, unspecified Lexa leo MD 08/07/2020 Q28.2 Arteriovenous malformation of ce rebral vessels [facility] 08/07/2020 Q28.2 Arteriovenous malformation of ce rebral vessels [facility] Plan of Treatment 12/31/2020 - Rudy Cadena MD* Q28.2 Arteriovenous malformation of cerebral vessels* Referral:* Shruthi,Jackie E, M.D., Radiation Oncology * Z86.73 Personal history of transient ischemic attack (TIA), and cerebral infarction without residual deficits Functional Status Description No Information Available Mental Status Description No Information Available Referrals Refer to Reason for Referral Status Appt Date Jackie Hawkins M.D. Left cerebellar AVM for cyberknife RS Crea abhilash [facility] [address] [place] [address] [phone] Rudy Cadena MD [facility] referral/auth good for 9 9 visits between 12/19/20- 06/17/2021 Created [facility] [address] [place] [address] [phone]
--- OUTSIDE RECORDS SUMMARY | 2021-04-14 14:42 | CCD ---
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 Name Role Phone Mike, L Paulina BLACK BELT Unavailable Unavailable Mike, L Paulina BLACK BELT Unavailable Unavailable Mike, L Paulina BLACK BELT Unavailable Unavailable Mike, L Paulina BLACK BELT Unavailable Unavailable Mike, L Paulina BLACK BELT Unavailable Unavailable Mike, L Paulina BLACK BELT Unavailable Unavailable Mike, L Paulina BLACK BELT Unavailable Unavailable Mike, L Paulina BLACK BELT Unavailable Unavailable Mike, L Paulina BLACK BELT Unavailable Unavailable Mike, L Paulina BLACK BELT Unavailable Unavailable Mike, L Paulina BLACK BELT Unavailable Unavailable Mike, L Paulina BLACK BELT Unavailable Unavailable Mike, L Paulina BLACK BELT Unavailable Unavailable Mike, L Paulina BLACK BELT Unavailable Unavailable Mike, L Paulina BLACK BELT Unavailable Unavailable Mike, L Paulina BLACK BELT Unavailable Unavailable Mike, L Paulina BLACK BELT Unavailable Unavailable Mike, L Paulina BLACK BELT Unavailable Unavailable Mike, L Paulina BLACK BELT Unavailable Unavailable Mike, L Paulina BLACK BELT Unavailable Unavailable Mike, L Paulina BLACK BELT Unavailable Unavailable Mike, L Paulina BLACK BELT Unavailable Unavailable Mike, L Paulina BLACK BELT Unavailable Unavailable Mike, L Paulina BLACK BELT Unavailable Unavailable Mike, L Paulina BLACK BELT Unavailable Unavailable Padalino, Angel Lindquist MD Unavailable Unavailable Padalino, Angel Lindquist MD Unavailable Unavailable Padalino, Angel Lindquist MD Unavailable Unavailable Padalino, Angel Lindquist MD Unavailable Unavailable Padalino, Angel Lindquist MD Unavailable Unavailable Padalino, Angel Lindquist MD Unavailable Unavailable Padalino, Angel Lindquist MD Unavailable Unavailable Padalino, Angel Lindquist MD Unavailable Unavailable Padalino, Angel Lindquist MD Unavailable Unavailable Padalino, Angel Lindquist MD Unavailable Unavailable Padalino, Angel Lindquist MD Unavailable Unavailable Padalino, Angel Lindquist MD Unavailable Unavailable Padalino, Angel Lindquist MD Unavailable Unavailable Padalino, Angel Lindquist MD Unavailable Unavailable Padalino, Angel Lindquist MD Unavailable Unavailable Padalino, Angel Lindquist MD Unavailable Unavailable Padalino, Angel Lindquist MD Unavailable Unavailable Padalino, Angel Lindquist MD Unavailable Unavailable Padalino, Angel Lindquist MD Unavailable Unavailable Padalino, Angel Lindquist MD Unavailable Unavailable Padalino, Angel Lindquist MD Unavailable Unavailable Padalino, Angel Lindquist MD Unavailable Unavailable Padalino, Angel Lindquist MD Unavailable Unavailable Padalino, Angel Lindquist MD Unavailable Unavailable Padalino, Angel Lindquist MD Unavailable Unavailable Padalino, Angel Lindquist MD Unavailable Unavailable Padalino, Angel Lindquist MD Unavailable Unavailable Padalino, Angel Lindquist MD Unavailable Unavailable Padalino, Angel Lindquist MD Unavailable Unavailable Padalino, Angel Lindquist MD Unavailable Unavailable Padalino, Angel Lindquist MD Unavailable Unavailable Padalino, Angel Lindquist MD Unavailable Unavailable Padalino, Angel Lindquist MD Unavailable Unavailable Padalino, Angel Lindquist MD Unavailable Unavailable Padalino, Angel Lindquist MD Unavailable Unavailable Padalino, Angel Lindquist MD Unavailable Unavailable Padalino, Angel Lindquist MD Unavailable Unavailable Padalino, Angel Lindquist MD Unavailable Unavailable Padalino, Angel Lindquist MD Unavailable Unavailable Padalino, Angel Lindquist MD Unavailable Unavailable Padalino, Angel Lindquist MD Unavailable Unavailable Padalino, Angel Lindquist MD Unavailable Unavailable Padalino, Angel Lindquist MD Unavailable Unavailable Padalino, Angel Lindquist MD Unavailable Unavailable Padalino, Angel Lindquist MD Unavailable Unavailable Padalino, Angel Lindquist MD Unavailable Unavailable Padalino, Angel Lindquist MD Unavailable Unavailable Padalino, Angel Lindquist MD Unavailable Unavailable Padalino, Angel Lindquist MD Unavailable Unavailable Padalino, Angel Lindquist MD Unavailable Unavailable Padalino, Angel Lindquist MD Unavailable Unavailable Padalino, Angel Lindquist MD Unavailable Unavailable Padalino, Angel Lindquist MD Unavailable Unavailable Padalino, Angel Lindquist MD Unavailable Unavailable Padalino, Angel Lindquist MD Unavailable Unavailable Padalino, Angel Lindquist MD Unavailable Unavailable Padalino, Angel Lindquist MD Unavailable Unavailable Padalino, Angel Lindquist MD Unavailable Unavailable Padalino, Angel Lindquist MD Unavailable Unavailable Padalino, Angel Lindquist MD Unavailable Unavailable Padalino, Angel Lindquist MD Unavailable Unavailable Padalino, Angel Lindquist MD Unavailable Unavailable Padalino, Angel Lindquist MD Unavailable Unavailable Padalino, Angel Lindquist MD Unavailable Unavailable Padalino, Angel Lindquist MD Unavailable Unavailable Padalino, Angel Lindquist MD Unavailable Unavailable Padalino, Angel Lindquist MD Unavailable Unavailable Padalino, Angel Lindquist MD Unavailable Unavailable Padalino, Angel Lindquist MD Unavailable Unavailable Padalino, Angel Lindquist MD Unavailable Unavailable Padalino, Anegl Lindquist MD Unavailable Unavailable Padalino, Angel Lindquist MD Unavailable Unavailable Padalino, Angel Lindquist MD Unavailable Unavailable Padalino, Angel Lindquist MD Unavailable Unavailable Padalino, Angel Lindquist MD Unavailable Unavailable Padalino, Angel Lindquist MD Unavailable Unavailable Padalino, Angel Lindquist MD Unavailable Unavailable ISAAC MCDONOUGH MD Unavailable Unavailable ISAAC MCDONOUGH MD Unavailable Unavailable ISAAC MCDONOUGH MD Unavailable Unavailable ISAAC MCDONOUGH MD Unavailable Unavailable ISAAC MCDONOUGH MD Unavailable Unavailable ISAAC MCDONOUGH MD Unavailable Unavailable ISAAC MCDONOUGH MD Unavailable Unavailable ISAAC MCDONOUGH MD Unavailable Unavailable ISAAC MCDONOUGH MD Unavailable Unavailable CEASARISAAC MD Unavailable Unavailable CEASARISAAC MD Unavailable Unavailable CEASAR ISAAC MD Unavailable Unavailable CEASARISAAC MD Unavailable Unavailable CEASARISAAC MD Unavailable Unavailable CEASARISAAC MD Unavailable Unavailable CAESAR ISAAC MD Unavailable Unavailable CEASARISAAC MD Unavailable Unavailable CEASAR ISAAC MD Unavailable Unavailable CEASARISAAC MD Unavailable Unavailable CEASARISAAC MD Unavailable Unavailable CEASARISAAC MD Unavailable Unavailable CEASARISAAC MD Unavailable Unavailable CEASAR ISAAC MD Unavailable Unavailable CEASAR ISAAC MD Unavailable Unavailable CEASARISAAC MD Unavailable Unavailable CEASARISAAC MD Unavailable Unavailable CEASARISAAC MD Unavailable Unavailable CEASARISAAC MD Unavailable Unavailable CEASARISAAC CORONADO MD Unavailable Unavailable CEASARISAAC MD Unavailable Unavailable CEASARISAAC MD Unavailable Unavailable CEASARISAAC MD Unavailable Unavailable CEASARISAAC CORONADO MD Unavailable Unavailable CEASARISAAC MD Unavailable Unavailable CEASARISAAC MD Unavailable Unavailable CEASARISAAC MD Unavailable Unavailable CEASARISAAC CORONADO MD Unavailable Unavailable CEASARISAAC CORONADO MD Unavailable Unavailable CEASARISAAC CORONADO MD Unavailable Unavailable CEASARISAAC CORONADO MD Unavailable Unavailable CEASARISAAC CORONADO MD Unavailable Unavailable CEASARISAAC CORONADO MD Unavailable Unavailable CEASARISAAC CORONADO MD Unavailable Unavailable CEASARISAAC CORONADO MD Unavailable Unavailable CEASARISAAC CORONADO MD Unavailable Unavailable CEASARISAAC CORONADO MD Unavailable Unavailable CEASARISAAC MD Unavailable Unavailable CEASARISAAC CORONADO MD Unavailable Unavailable CEASARISAAC MD Unavailable Unavailable CEASARISAAC CORONADO MD Unavailable Unavailable CEASARISAAC MD Unavailable Unavailable CEASARISAAC MD Unavailable Unavailable CEASARISAAC MD Unavailable Unavailable CEASARISACA MD Unavailable Unavailable CEASARISAAC CORONADO MD Unavailable Unavailable CEASARISAAC MD Unavailable Unavailable CEASARISAAC CORONADO MD Unavailable Unavailable CEASARISAAC MD Unavailable Unavailable CEASAR, ISAAC MD Unavailable Unavailable CEASAR, ISAAC MD Unavailable Unavailable ISAAC MCDONOUGH MD Unavailable Unavailable Shruthi, E Jackie Unavailable Unavailable Shruthi, E Jackie MD Unavailable Unavailable Shruthi, E Jackie Unavailable Unavailable Shruthi, E Jackie Unavailable Unavailable Shruthi, E Jackie Unavailable Unavailable Shruthi, E Jackie Unavailable Unavailable Shruthi, E Jackie Unavailable Unavailable Shruthi, E Jackie MD Unavailable Unavailable Shruthi, E Jackie Unavailable Unavailable Shruthi, E Jackie MD Unavailable Unavailable Shruthi, E Jackie MD Unavailable Unavailable Shruthi, E Jackie MD Unavailable Unavailable Shruthi, E Jackie MD Unavailable Unavailable Shruthi, E Jackie MD Unavailable Unavailable Shruthi, E Jackie MD Unavailable Unavailable Shruthi, E Jackie MD Unavailable Unavailable Shruthi, E Jackie MD Unavailable Unavailable Shruthi, E Jackie MD Unavailable Unavailable Shruthi, E Jackie MD Unavailable Unavailable Shruthi, E Jackie MD Unavailable Unavailable Shruthi, E Jackie MD Unavailable Unavailable Shruthi, E Jackie MD Unavailable Unavailable Shruthi, E Jackie MD Unavailable Unavailable Shruthi, E Jackie MD Unavailable Unavailable Shruthi, E Jackie MD Unavailable Unavailable Shruthi, E Jackie MD Unavailable Unavailable Shruthi, E Jackie MD Unavailable Unavailable Shruthi, E Jackie MD Unavailable Unavailable Shruthi, E Jackie MD Unavailable Unavailable Shruthi, E Jackie MD Unavailable Unavailable Shruthi, E Jackie MD Unavailable Unavailable Shruthi, E Jackie MD Unavailable Unavailable Shruthi, E Jackie MD Unavailable Unavailable Shruthi, E Jackie MD Unavailable Unavailable Shruthi, E Jackie Unavailable Unavailable Shruthi, E Jackie Unavailable Unavailable Shruthi, E Jackie Unavailable Unavailable Shruthi, E Jackie Unavailable Unavailable Shruthi, E Jackie Unavailable Unavailable Shruthi, E Jackie Unavailable Unavailable Shruthi, E Jackie Unavailable Unavailable Shruthi, E Jackie Unavailable Unavailable Shruthi, E Jackie Unavailable Unavailable Shruthi, E Jackie Unavailable Unavailable Shruthi, E Jackie Unavailable Unavailable Shruthi, E Jackie Unavailable Unavailable Shruthi, E Jackie MD Unavailable Unavailable Shruthi, E Jackie Unavailable Unavailable Shruthi, E Jackie Unavailable Unavailable Shruthi, E Jackie Unavailable Unavailable Shruthi, E Jackie Unavailable Unavailable Shruthi, E Jackie Unavailable Unavailable Shruthi, E Jackie Unavailable Unavailable Shruthi, E Jackie Unavailable Unavailable Carolina Hawkins MD Unavailable Unavailable Carolina Hawkins MD Unavailable Unavailable Carolina Hawkins MD Unavailable Unavailable Carolina Hawkins MD Unavailable Unavailable Shabana Acuna MD Unavailable Unavailable Shabana Acuna MD Unavailable Unavailable Shabana Acuna MD Unavailable Unavailable Shabana Acuna MD Unavailable Unavailable Shabana Acuna MD Unavailable Unavailable Shabana Acuna MD Unavailable Unavailable Shabana Acuna MD Unavailable Unavailable Shabana Acuna MD Unavailable Unavailable Shabana Acuna MD Unavailable Unavailable Shabana Acuna MD Unavailable Unavailable Shabana Acuna MD Unavailable Unavailable Shabana Acuna MD Unavailable Unavailable Shabana Acuna MD Unavailable Unavailable Shabana Acuna MD Unavailable Unavailable Shabana Acuna MD Unavailable Unavailable Shabana Acuna MD Unavailable Unavailable Shabana Acuna MD Unavailable Unavailable Shabana Acuna MD Unavailable Unavailable Shabana Acuna MD Unavailable Unavailable Shabana Acuna MD Unavailable Unavailable Shabana Acuna MD Unavailable Unavailable Shabana Acuna MD Unavailable Unavailable Shabana Acuna MD Unavailable Unavailable Shabana Acuna MD Unavailable Unavailable Shabana Acuna MD Unavailable Unavailable Shabana Acuna MD Unavailable Unavailable Shabana Acuna MD Unavailable Unavailable Shabana Acuna MD Unavailable Unavailable Shabana Acuna MD Unavailable Unavailable Shabana Acuna MD Unavailable Unavailable Shabana Acuna MD Unavailable Unavailable Shabana Acuna MD Unavailable Unavailable Shabana Acuna MD Unavailable Unavailable Shabana Acuna MD Unavailable Unavailable Shabana Acuna MD Unavailable Unavailable Shabana Acuna MD Unavailable Unavailable Shabana Acuna MD Unavailable Unavailable Shabana Acuna MD Unavailable Unavailable Shabana Acuna MD Unavailable Unavailable Shabana Acuna MD Unavailable Unavailable Shabana Acuna MD Unavailable Unavailable Shabana Acuna MD Unavailable Unavailable Armand O Samah Unavailable Unavailable Armand, O Samah Unavailable Unavailable Armand O Samah Unavailable Unavailable Armand O Samah Unavailable Unavailable Armand O Samah Unavailable Unavailable Armand O Samah Unavailable Unavailable Armand O Samah Unavailable Unavailable Armand O Samah Unavailable Unavailable Armand O Samah Unavailable Unavailable Armand O Samah Unavailable Unavailable Armand O Samah Unavailable Unavailable Armand O Samah Unavailable Unavailable Armand O Samah Unavailable Unavailable Armand O Samah Unavailable Unavailable Armand O Samah Unavailable Unavailable Armand O Samah Unavailable Unavailable Armand O Samah Unavailable Unavailable Armand O Yobanyah Unavailable Unavailable Armand O Samah Unavailable Unavailable Armand O Yobanyah Unavailable Unavailable Armand O Samah Unavailable Unavailable Armand O Yobanyah Unavailable Unavailable Armand O Yobanyah Unavailable Unavailable Armand O Samah Unavailable Unavailable Armand O Samah Unavailable Unavailable Armand O Yobanyah Unavailable Unavailable Armand O Samah Unavailable Unavailable Armand O Samah Unavailable Unavailable Shabana Acunaah Unavailable Unavailable Armand O Samah Unavailable Unavailable Armand O Yobanyah Unavailable Unavailable Armand O Yobanyah Unavailable Unavailable Armand O Yobanyah Unavailable Unavailable Armand O Yobanyah Unavailable Unavailable Armand O Yobanyah Unavailable Unavailable Armand O Samah Unavailable Unavailable Armand O Yobanyah Unavailable Unavailable ISAAC MCDONOUGH MD Unavailable Unavailable ISAAC MCDONOUGH MD Unavailable Unavailable ISAAC MCDONOUGH MD Unavailable Unavailable ISAAC MCDONOUGH MD Unavailable Unavailable ISAAC MCDONOUGH MD Unavailable Unavailable ISAAC MCDONOUGH MD Unavailable Unavailable ISAAC MCDONOUGH MD Unavailable Unavailable ISAAC MCDONOUGH MD Unavailable Unavailable ISAAC MCDONOUGH MD Unavailable Unavailable CEASARISAAC MD Unavailable Unavailable CEASARISAAC MD Unavailable Unavailable CEASAR ISAAC MD Unavailable Unavailable CEASARISAAC MD Unavailable Unavailable CEASARISAAC MD Unavailable Unavailable CEASARISAAC MD Unavailable Unavailable CEASAR ISAAC MD Unavailable Unavailable CEASARISAAC MD Unavailable Unavailable CEASAR ISAAC MD Unavailable Unavailable CEASARISAAC MD Unavailable Unavailable CEASARISAAC MD Unavailable Unavailable CEASARISAAC MD Unavailable Unavailable CEASARISAAC MD Unavailable Unavailable CEASAR ISAAC MD Unavailable Unavailable CEASAR ISAAC MD Unavailable Unavailable CEASARISAAC MD Unavailable Unavailable CEASARISAAC MD Unavailable Unavailable CEASARISAAC MD Unavailable Unavailable CEASARIASAC MD Unavailable Unavailable CEASARISAAC CORONADO MD Unavailable Unavailable CEASARISAAC MD Unavailable Unavailable CEASARISAAC MD Unavailable Unavailable CEASARISAAC MD Unavailable Unavailable CEASARISAAC CORONADO MD Unavailable Unavailable CEASARISAAC MD Unavailable Unavailable CEASARISAAC MD Unavailable Unavailable CEASARISAAC MD Unavailable Unavailable CEASARISAAC CORONADO MD Unavailable Unavailable CEASARISAAC CORONADO MD Unavailable Unavailable CEASARISAAC CORONADO MD Unavailable Unavailable CEASARISAAC CORONADO MD Unavailable Unavailable CEASARISAAC CORONADO MD Unavailable Unavailable CEASARISAAC CORONADO MD Unavailable Unavailable CEASARISAAC CORONADO MD Unavailable Unavailable CEASARISAAC CORONADO MD Unavailable Unavailable CEASARISAAC CORONADO MD Unavailable Unavailable CEASARISAAC CORONADO MD Unavailable Unavailable CEASARISAAC MD Unavailable Unavailable CEASARISAAC CORONADO MD Unavailable Unavailable CEASARISAAC MD Unavailable Unavailable CEASARISAAC CORONADO MD Unavailable Unavailable CEASARISAAC MD Unavailable Unavailable CEASARISAAC MD Unavailable Unavailable CEASARISAAC CORONADO MD Unavailable Unavailable CEASARISAAC MD Unavailable Unavailable CEASARISAAC CORONADO MD Unavailable Unavailable CEASARISAAC MD Unavailable Unavailable CEASARISAAC CORONADO MD Unavailable Unavailable CEASARISAAC MD Unavailable Unavailable CEASAR, ISAAC MD Unavailable Unavailable CEASARISAAC MD Unavailable Unavailable CEASARISAAC ALONZO MD Unavailable Unavailable Padalino, Angel Lindquist MD Unavailable Unavailable Padalino, Angel Lindquist MD Unavailable Unavailable Padalino, Angel Lindquist MD Unavailable Unavailable Padalino, Angel Lindquist MD Unavailable Unavailable Padalino, Angel Lindquist MD Unavailable Unavailable Padalino, Angel Lindquist MD Unavailable Unavailable Padalino, Angel Lindquist MD Unavailable Unavailable Padalino, Angel Lindquist MD Unavailable Unavailable Padalino, Angel Lindquist MD Unavailable Unavailable Padalino, Angel Lindquist MD Unavailable Unavailable Padalino, Angel Lindquist MD Unavailable Unavailable Padalino, Angel Lindquist MD Unavailable Unavailable Padalino, Angel Lindquist MD Unavailable Unavailable Padalino, Angel Lindquist MD Unavailable Unavailable Padalino, Angel Lindquist MD Unavailable Unavailable Padalino, Angel Lindquist MD Unavailable Unavailable Padalino, Angel Lindquist MD Unavailable Unavailable Padalino, Angel Lindquist MD Unavailable Unavailable Padalino, Angel Lindquist MD Unavailable Unavailable Padalino, Angel Lindquist MD Unavailable Unavailable Padalino, Angel Lindquist MD Unavailable Unavailable Padalino, Angel Lindquist MD Unavailable Unavailable Padalino, Angel Lindquist MD Unavailable Unavailable Padalino, Angel Lindquist MD Unavailable Unavailable Padalino, Angel Lindquist MD Unavailable Unavailable Padalino, Angel Lindquist MD Unavailable Unavailable Padalino, Angel Lindquist MD Unavailable Unavailable Padalino, Angel Lindquist MD Unavailable Unavailable Padalino, Angel Lindquist MD Unavailable Unavailable Padalino, Angel Lindquist MD Unavailable Unavailable Padalino, Angel Lindquist MD Unavailable Unavailable Padalino, Angel Lindquist MD Unavailable Unavailable Padalino, Angel Lindquist MD Unavailable Unavailable Padalino, Angel Lindquist MD Unavailable Unavailable Padalino, Angel Lindquist MD Unavailable Unavailable Padalino, Angel Lindquist MD Unavailable Unavailable Padalino, Angel Lindquist MD Unavailable Unavailable Padalino, Angel Lindquist MD Unavailable Unavailable Padalino, Angel Lindquist MD Unavailable Unavailable Padalino, Angel Lindquist MD Unavailable Unavailable Padalino, Angel Lindquist MD Unavailable Unavailable Padalino, Angel Lindquist MD Unavailable Unavailable Padalino, Angel Lindquist MD Unavailable Unavailable Padalino, Angel Lindquist MD Unavailable Unavailable Padalino, Angel Lindquist MD Unavailable Unavailable Padalino, Angel Lindquist MD Unavailable Unavailable Padalino, Angel Lindquist MD Unavailable Unavailable Padalino, Angel Lindquist MD Unavailable Unavailable Padalino, Angel Lindquist MD Unavailable Unavailable Padalino, Angel Lindquist MD Unavailable Unavailable Padalino, Angel Lindquist MD Unavailable Unavailable Padalino, Angel Lindquist MD Unavailable Unavailable Padalino, Angel Lindquist MD Unavailable Unavailable Padalino, Angel Lindquist MD Unavailable Unavailable Padalino, Angel Lindquist MD Unavailable Unavailable Padalino, Angel Lindquist MD Unavailable Unavailable Padalino, Angel Lindquist MD Unavailable Unavailable Padalino, Angel Lindquist MD Unavailable Unavailable Padalino, Angel Lindquist MD Unavailable Unavailable Padalino, Angel Lindquist MD Unavailable Unavailable Padalino, Angel Lindquist MD Unavailable Unavailable Padalino, Angel Lindquist MD Unavailable Unavailable Padalino, Angel Lindquist MD Unavailable Unavailable Padalino, Angel Lindquist MD Unavailable Unavailable Padalino, Angel Lindquist MD Unavailable Unavailable Padalino, Angel Lindquist MD Unavailable Unavailable Padalino, Angel Lindquist MD Unavailable Unavailable Padalino, Angel Lindquist MD Unavailable Unavailable Padalino, Angel Lindquist MD Unavailable Unavailable Padalino, Angel Lindquist MD Unavailable Unavailable Padalino, Angel Lindquist MD Unavailable Unavailable Padalino, Angel Lindquist MD Unavailable Unavailable Padalino, Angel Lindquist MD Unavailable Unavailable Padalino, Angel Lindquist MD Unavailable Unavailable Padalino, Angel Lindquist MD Unavailable Unavailable Padalino, Angel Lindquist MD Unavailable Unavailable PadalinoAngel MD Unavailable Unavailable ISAAC MCDONOUGH MD Unavailable Unavailable ISAAC MCDONOUGH MD Unavailable Unavailable ISAAC MCDONOUGH MD Unavailable Unavailable ISAAC MCDONOUGH MD Unavailable Unavailable ISAAC MCDONOUGH MD Unavailable Unavailable ISAAC MCDONOUGH MD Unavailable Unavailable ISAAC MCDONOUGH MD Unavailable Unavailable ISAAC MCDONOUGH MD Unavailable Unavailable ISAAC MCDONOUGH MD Unavailable Unavailable ISAAC MCDONOUGH MD Unavailable Unavailable ISAAC MCDONOUGH MD Unavailable Unavailable ISAAC MCDONOUGH MD Unavailable Unavailable ISAAC MCDONOUGH MD Unavailable Unavailable ISAAC MCDONOUGH MD Unavailable Unavailable ISAAC MCDONOUGH MD Unavailable Unavailable ISAAC MCDONOUGH MD Unavailable Unavailable ISAAC MCDONOUGH MD Unavailable Unavailable ISAAC MCDONOUGH MD Unavailable Unavailable ISAAC MCDONOUGH MD Unavailable Unavailable ISAAC MCDONOUGH MD Unavailable Unavailable ISAAC MCDONOUGH MD Unavailable Unavailable ISAAC MCDONOUGH MD Unavailable Unavailable ISAAC MCDONOUGH MD Unavailable Unavailable ISAAC MCDONOUGH MD Unavailable Unavailable ISAAC MCDONOUGH MD Unavailable Unavailable ISAAC MCDONOUGH MD Unavailable Unavailable ISAAC MCDONOUGH MD Unavailable Unavailable ISAAC MCDONOUGH MD Unavailable Unavailable ISAAC MCDONOUGH MD Unavailable Unavailable CEASARISAAC CORONADO MD Unavailable Unavailable CEASARISAAC MD Unavailable Unavailable CEASARISAAC MD Unavailable Unavailable CESAARISAAC MD Unavailable Unavailable CEASARISAAC MD Unavailable Unavailable CEASARISAAC MD Unavailable Unavailable CEASARISAAC MD Unavailable Unavailable CEASARISAAC MD Unavailable Unavailable CEASARISAAC MD Unavailable Unavailable CEASARISAAC CORONADO MD Unavailable Unavailable CEASARISAAC MD Unavailable Unavailable CEASARISAAC CORONADO MD Unavailable Unavailable CEASARISAAC MD Unavailable Unavailable CEASARISAAC MD Unavailable Unavailable CEASARISAAC MD Unavailable Unavailable CEASARISAAC CORONADO MD Unavailable Unavailable CEASARISAAC CORONADO MD Unavailable Unavailable CEASRAISAAC ALONZO MD Unavailable Unavailable CEASARISAAC ALONZO MD Unavailable Unavailable CEASARISAAC ALONZO MD Unavailable Unavailable CEASARISAAC ALONZO MD Unavailable Unavailable CESAARISAAC ALONZO MD Unavailable Unavailable CEASARISAAC ALONZO MD Unavailable Unavailable CEASARISAAC ALONZO MD Unavailable Unavailable CEASARISAAC ALONZO MD Unavailable Unavailable CEASARISAAC ALONZO MD Unavailable Unavailable CEASARISAAC ALONZO MD Unavailable Unavailable CEASARISAAC ALONZO MD Unavailable Unavailable CEASARISAAC ALONZO MD Unavailable Unavailable CEASARISAAC ALONZO MD Unavailable Unavailable CEASARISAAC ALONZO MD Unavailable Unavailable CEASARISAAC ALONZO MD Unavailable Unavailable SAGAR, 0000{ Unavailable Unavailable Angel Padilla MD Unavailable Unavailable Angel Padilla MD Unavailable Unavailable GuerdaalinAngel griffin MD Unavailable Unavailable GuerdaalinAngel griffin MD Unavailable Unavailable GuerdaalinAngel griffin MD Unavailable Unavailable Angel Padilla MD Unavailable Unavailable Angel Padilla MD Unavailable Unavailable Angel Padilla MD Unavailable Unavailable Angel Padilla MD Unavailable Unavailable Angel Padilla MD Unavailable Unavailable Angel Padilla MD Unavailable Unavailable Angel Padilla MD Unavailable Unavailable Angel Padilla MD Unavailable Unavailable Angel Padilla MD Unavailable Unavailable Angel Padilla MD Unavailable Unavailable Angel Padilla MD Unavailable Unavailable Angel Padilla MD Unavailable Unavailable Angel Padilla MD Unavailable Unavailable Angel Padilla MD Unavailable Unavailable Padalino, Angel Lindquist MD Unavailable Unavailable Padalino, Angel Lindquist MD Unavailable Unavailable Padalino, Angel Lindquist MD Unavailable Unavailable Padalino, Angel Lindquist MD Unavailable Unavailable Padalino, Angel Lindquist MD Unavailable Unavailable Padalino, Angel Lindquist MD Unavailable Unavailable Padalino, Angel Lindquist MD Unavailable Unavailable Padalino, Angel Lindquist MD Unavailable Unavailable Padalino, Angel Lindquist MD Unavailable Unavailable Padalino, Angel Lindquist MD Unavailable Unavailable Padalino, Angel Lindquist MD Unavailable Unavailable Padalino, Angel Lindquist MD Unavailable Unavailable Padalino, Angel Lindquist MD Unavailable Unavailable Padalino, Angel Lindquist MD Unavailable Unavailable Padalino, Angel Lindquist MD Unavailable Unavailable Padalino, Angel Lindquist MD Unavailable Unavailable Padalino, Angel Lindquist MD Unavailable Unavailable Padalino, Angel Lindquist MD Unavailable Unavailable Padalino, Angel Lindquist MD Unavailable Unavailable Padalino, Angel Lindquist MD Unavailable Unavailable Padalino, Angel Lindquist MD Unavailable Unavailable Padalino, Angel Lindquist MD Unavailable Unavailable Padalino, Angel Lindquist MD Unavailable Unavailable Padalino, Angel Lindquist MD Unavailable Unavailable Padalino, Angel Lindquist MD Unavailable Unavailable Padalino, Angel Lindquist MD Unavailable Unavailable Padalino, Angel Lindquist MD Unavailable Unavailable Padalino, Angel Lindquist MD Unavailable Unavailable Padalino, Angel Lindquist MD Unavailable Unavailable Padalino, Angel Linqduist MD Unavailable Unavailable Padalino, Angel Lindquist MD Unavailable Unavailable Padalino, Angel Lindquist MD Unavailable Unavailable Padalino, Angel Lindquist MD Unavailable Unavailable Padalino, Angel Lindquist MD Unavailable Unavailable Padalino, Angel Lindquist MD Unavailable Unavailable Padalino, Angel Lindquist MD Unavailable Unavailable Padalino, Angel Lindquist MD Unavailable Unavailable Padalino, Angel Lindquist MD Unavailable Unavailable Padalino, Angel Lindquist MD Unavailable Unavailable Padalino, Angel Lindquist MD Unavailable Unavailable Padalino, Angel Lindquist MD Unavailable Unavailable Padalino, Angel Lindquist MD Unavailable Unavailable Padalino, Angel Lindquist MD Unavailable Unavailable Padalino, Angel Lindquist MD Unavailable Unavailable Padalino, Angel Lindquist MD Unavailable Unavailable Padalino, Angel Lindquist MD Unavailable Unavailable Padalino, Angel Lindquist MD Unavailable Unavailable Padalino, Angel Lindquist MD Unavailable Unavailable Padalino, Angel Lindquist MD Unavailable Unavailable Padalino, Angel Lindquist MD Unavailable Unavailable Padalino, Angel Lindquist MD Unavailable Unavailable Padalino, Angel Lindquist MD Unavailable Unavailable Padalino, Angel Lindquist MD Unavailable Unavailable Padalino, Angel Lindquist MD Unavailable Unavailable Padalino, Angel Lindquist MD Unavailable Unavailable Padalino, Angel Lindquist MD Unavailable Unavailable PadalinoAngel MD Unavailable Unavailable PadalinoAngel MD Unavailable Unavailable PHYSICIAN, ER Unavailable Unavailable Re-disclosure Warning The records that you are about to access may contain information from federally-assisted alcohol or drug abuse programs. If such information is present, then the following federally mandated warning applies: This information has been disclosed to you from records protected by federal confidentiality rules (42 CFR part 2). The federal rules prohibit you from making any further disclosure of this information unless further disclosure is expressly permitted by the written consent of the person to whom it pertains or as otherwise permitted by 42 CFR part 2. A general authorization for the release of medical or other information is NOT sufficient for this purpose. The Federal rules restrict any use of the information to criminally investigate or prosecute any alcohol or drug abuse patient.The records that you are about to access may contain highly sensitive health information, the redisclosure of which is protected by Article 27-F of the [facility] Public Health law. If you continue you may have access to information: Regarding HIV / AIDS; Provided by facilities licensed or operated by the [facility] Office of Mental Health; or Provided by the [facility] Office for People With Developmental Disabilities. If such information is present, then the following [facility] mandated warning applies: This information has been disclosed to you from confidential records which are protected by state law. State law prohibits you from making any further disclosure of this information without the specific written consent of the person to whom it pertains, or as otherwise permitted by law. Any unauthorized further disclosure in violation of state law may result in a fine or long term sentence or both. A general authorization for the release of medical or other information is NOT sufficient authorization for further disc losure. Allergies and Adverse Reactions Type Description Substance Reaction Status Data Source(s ) Drug allergy No Known Drug Allergies No Known Drug Allergies [facility] Family History Family Member Name Family Member Gender Family Member Status Date o f Status Description Data Source(s) Unknown Unknown Problem MEDENT ([facility]) Encounters Encounter Providers Location Date Indications Data Source(s ) Unknown [address] [facility] [address] 04/09/2021 12:00:00 AM EDT eCW1 ([facility]) Outpatient Attender: Jackie MOYeferrer: ISAAC MCDONOUGH MD _[id number] 04/05/2021 10:05:40 AM EDT [facility] [place] [address] [facility] [address] 04/02/2021 12:00:00 AM EDT eCW1 ([facility]) Outpatient Attender: Paulina Mckeon NP Davion/Mccarr/Jet/Reindl 04/01/2021 12:30:00 PM EDT [facility] ([facility] [place] [address] [facility] [address] 03/17/2021 12:00:00 AM EDT eCW1 ([facility]) [place] [address] [facility] [address] 03/17/2021 12:00:00 AM EDT eCW1 ([facility]) Outpatient Attender: Paulina Ricardo/Mccarr/Jet/Reindl 03/12/2021 10:00:00 AM EDT MEDENT ([facility]) Outpatient Attender: Echo Acuna MD Main office - [facility] 03/06/2021 01:30:00 PM EDT [facility] ([facility] [place] [address] [facility] [address] 03/06/2021 12:00:00 AM EDT eCW1 ([facility]) [place] [address] [facility] [address] 03/05/2021 12:00:00 AM EDT eCW1 ([facility]) [place] [address] [facility] [address] 03/05/2021 12:00:00 AM EDT eCW1 ([facility]) [place] [address] [facility] [address] 03/04/2021 12:00:00 AM EDT eCW1 ([facility]) [place] [address] [facility] [address] 02/27/2021 12:00:00 AM EDT eCW1 ([facility]) [place] [address] [facility] [address] 02/26/2021 12:00:00 AM EDT eCW1 ([facility]) [place] [address] [facility] [address] 02/26/2021 12:00:00 AM EDT eCW1 ([facility]) [place] [address] [facility] [address] 02/18/2021 12:00:00 AM EDT [facility] [place] [address] [facility] [address] 02/14/2021 12:00:00 AM EDT [facility]CW1 [facility]) [place] [address] [facility] [address] 02/12/2021 12:00:00 AM EDT eCW1 ([facility]) [place] [address] [facility] [address] 02/10/2021 12:00:00 AM EDT eCW1 ([facility]) Outpatient Attender: Jackie Hawkins MDReferrer: ISAAC MCDONOUGH MD _[id number] 01/21/2021 03:33:17 PM EDT [facility] Outpatient Attender: Jackie MOYeferrer: ISAAC MCDONOUGH MD _[id number] 01/21/2021 03:33:15 PM EDT [facility] Outpatient Attender: Jackie MOYeferrer: ISAAC MCDONOUGH MD _[id number] 01/20/2021 04:24:52 PM EDT [facility] Outpatient Attender: Jackie MOYeferrer: ISAAC MCDONOUGH MD _[id number] 01/20/2021 04:24:51 PM EDT [facility] Outpatient Referrer: ISAAC MCDONOUGH MD 01/20/2021 04:15:2 3 PM EDT [facility] Outpatient Referrer: ISAAC MCDONOUGH MD 01/20/2021 03:52:4 4 PM EDT [facility] Outpatient Referrer: ISAAC MCDONOUGH MD 01/16/2021 07:11:4 4 PM EDT [facility] Outpatient Referrer: ISAAC MCDONOUGH MD 01/16/2021 02:11:1 0 PM EDT [facility] Unknown [address] [facility] [address] 01/16/2021 12:00:00 AM EDT eCW1 ([facility]) Outpatient Referrer: ISAAC MCDONOUGH MD 01/15/2021 07:46:2 3 PM EDT [facility] Outpatient Referrer: ISAAC MCDONOUGH MD 01/15/2021 02:13:4 2 PM EDT [facility] Unknown [address] [facility] [address] 01/15/2021 12:00:00 AM EDT eCW1 ([facility]) Outpatient Referrer: ISAAC MCDONOUGH MD 01/01/2021 12:00:5 7 PM EDT [facility] Outpatient 01/01/2021 12:00:46 PM EDT [facility] Outpatient 01/01/2021 11:59:35 AM EDT [facility] Unknown [address] [facility] [address] 01/01/2021 12:00:00 AM EDT eCW1 ([facility]) Outpatient Attender: ISAAC MCDONOUGH MD [facility] [place] 12/31/2020 01:00:00 PM EDT [facility] ([facility]) Unknown [address] [facility] [address] 12/31/2020 12:00:00 AM EDT eCW1 ([facility]) Outpatient [address] [place] [address] [place] [address] 12/26/2020 12:00:00 AM EDT eCW1 ([facility]) [place] [address] [facility] [address] 12/26/2020 12:00:00 AM EDT eCW1 ([facility]) [place] [address] [facility] [address] 12/24/2020 12:00:00 AM EDT eCW1 ([facility]) [place] [address] [facility] [address] 12/19/2020 12:00:00 AM EDT eCW1 ([facility]) [place] [address] [facility] [address] 12/17/2020 12:00:00 AM EDT [facility]CW1 ([facility]) [place] [address] [facility] [address] 12/06/2020 12:00:00 AM EDT eCW1 ([facility]) [place] [address] [facility] [address] 12/04/2020 12:00:00 AM EDT eCW1 [facility]) [place] [address] [facility] [address] 12/02/2020 12:00:00 AM EDT [facility]CW1 [facility] [place]patient [address] [facility] [address] 12/02/2020 12:00:00 AM EDT eCW1 ([facility]) Outpatient Attender: Lexa Padilla MD [facility] Internal [facility] [place] 11/29/2020 03:20:00 PM EDT MEDNIRAJ ([facility]) Outpatient 11/29/2020 01:15:00 PM EDT [facility] [place] [address] [facility] [address] 11/27/2020 12:00:00 AM EDT eCW1 ([facility]) [place] [address] [facility] [address] 11/26/2020 12:00:00 AM EDT [facility] [place] [address] [facility] [address] 11/22/2020 12:00:00 AM EDT eCW1 [facility]) Outpatient Attender: Echo Acuna MD Main office - [facility] 11/21/2020 12:45:00 PM EDT [facility] ([facility] [place] [address] [facility] [address] 11/20/2020 12:00:00 AM EDT eCW1 [facility]) [place] [address] [facility] [address] 11/20/2020 12:00:00 AM EDT eCW1 [facility]) [place] [address] [facility] [address] 11/18/2020 12:00:00 AM EDT eCW1 [facility]) Outpatient Attender: ISAAC MCDONOUGH MD [facility] Internal [facility] [place] 11/17/2020 02:35:00 AM EDT MEDENT ([facility]) Inpatient Attender: ISAAC MCDONOUGH MD 11/16/2020 09:10:3 1 AM EDT [facility] Inpatient Attender: ISAAC MCDONOUGH MD 11/16/2020 04:49:[address] [facility] Inpatient Attender: ISAAC MCDONOUGH MD Attender: ER PHYSICIANAdmitter: ISAAC MCDONOUGH MD 11/16/2020 03:46:00 AM EDT - 11/17/2020 11:09:00 AM EDT IN[address]IAL HEMORRH[address] [facility] INTRACRANIAL HEMORRHAGE Patient discharged. Outpatient Attender: ISAAC MCDONOUGH MD [facility] Internal [facility] [place] 11/16/2020 02:35:00 AM EDT [facility] ([facility]) [place] [address] [facility] [address] 11/12/2020 12:00:00 AM EDT eCW1 ([facility] [place] [address] [facility] [address] 11/01/2020 12:00:00 AM EDT eCW1 [facility]) [place] [address] [facility] [place] [address] 10/31/2020 12:00:00 AM EDT eCW1 ([facility]) [place] [address] [facility] [address] 10/30/2020 12:00:00 AM EDT eCW1 [facility]) Outpatient Attender: Lexa Padilla MD CMP [facility] [place] 10/27/2020 11:11:00 AM EDT [facility] ([facility]) [place] [address] [facility] [address] 10/27/2020 12:00:00 AM EDT eCW1 [facility]) Inpatient Attender: Lexa Padilla MD 10/26/2020 02:37:21 AM EDT Lab [facility] Outpatient Attender: Lexa Padilla MD CMP Internal [facility] [place] 10/26/2020 02:36:00 AM EDT MEDENT ([facility]) Outpatient Attender: Lexa Padilla MD 10/12 08:56:00 AM EDT - 10/27/2020 12:22:[address] [facility] Inpatient Attender: Lexa Padilla MDAdmitter: Lexa boyce MD 10/25/2020 08:56:00 AM EDT - 10/27/2020 12:22:00 PM EDT [facility] Patient discharged. [place] [address] [facility] [address] 10/18/2020 12:00:00 AM EDT eCW1 ([facility]) [place] [address] [facility] [address] 10/16/2020 12:00:00 AM EDT eCW1 ([facility]) [place] [address] [facility] [place] [address] 10/11/2020 12:00:00 AM EDT eCW1 ([facility] Outpatient Attender: Lexa Padilla MD CMP Internal [facility] [place] 10/01/2020 11:40:00 AM EDT [facility] ([facility]) [place] [address] [facility] [address] 09/17/2020 12:00:00 AM EDT eCW1 [facility] [place] [address] [facility] [address] 09/13/2020 12:00:00 AM EDT eCW1 [facility]) Outpatient Attender: Lexa Padilla MD CMP Internal [facility] [place] 09/10/2020 02:51:00 AM EDT MEDENT ([facility]) Inpatient Attender: Lexa Padilla MD 09/09/2020 09:49:16 AM EDT [facility] D Attender: 0000{ HOPETON 09:10:00 AM EDT - 09/10/2020 11:45:[address] [facility] Inpatient Attender: Lexa Padilla MDAdmitter: Lexa boyce MD 09/09/2020 09:10:00 AM EDT - 09/10/2020 11:45:00 AM EDT AVM EMBOLIZATION [facility] AVM EMBOLIZATION Patient discharged. [place] [address] [facility] [address] 09/06/2020 12:00:00 AM EDT eCW1 [facility] [place]patient [address] [facility] [address] 09/02/2020 12:00:00 AM EDT eCW1 ([facility]) Outpatient Attender: Echo Acuna MD Main office - [facility] 08/26/2020 11:30:00 AM EDT MEDENT ([facility]) Outpatient Attender: Lexa Padilla MD CMP Internal [facility] [place] 08/23/2020 02:00:00 PM EST [facility] ([facility] [place] [address] [facility] [address] 08/17/2020 12:00:00 AM EST eCW1 [facility] [place] [address] [facility] [place] [address] 08/17/2020 12:00:00 AM EST [facility]CW1 [facility] [place] [address] [facility] [place] [address] 08/17/2020 12:00:00 AM EST [facility]CW1 [facility]) [place] [address] [facility] [place] [address] 08/17/2020 12:00:00 AM EST eCW1 [facility]) Outpatient Attender: Lexa Padilla MD 08/15/2020 09:28:49 AM EST [facility] Outpatient Attender: Lexa Padilla MDAdmitter: Lexa boyce MD 08/15/2020 09:07:00 AM EST - 08/15/2020 11:30:00 AM EST ARTERIOVENOUS MALFORMATION OF CEREBRAL VESSELS [facility] ARTERIOVENOUS MALFORMATION OF CEREBRAL V ESSELS Patient discharged. Outpatient Attender: 0000{ HOPETON 08/15/2020 09:07:00 AM E [facility] Outpatient Attender: Lexa Padilla MD [facility] Internal Med at [place] 08/07/2020 01:00:00 PM EST [facility] ([facility] [place] [address] [facility] [address] 07/17/2020 12:00:00 AM EST [facility]CW1 [facility] [place] [address] [facility] [address] 06/16/2020 12:00:00 AM EST eCW1 ([facility] Outpatient Attender: Echo Acuna MD Main office - [facility] 05/28/2020 07:00:00 AM EST [facility] ([facility] [place] [address] [facility] [address] 05/03/2020 12:00:00 AM EST eCW1 [facility]) [place] [address] [facility] [place] [address] 04/30/2020 12:00:00 AM EST eCW1 ([facility]) [place] [address] [facility] [place] [address] 04/29/2020 12:00:00 AM EST eCW1 ([facility]) [place] [address] [facility] [place] [address] 04/19/2020 12:00:00 AM EST eCW1 ([facility]) [place] [address] [facility] [place] [address] 04/16/2020 12:00:00 AM EST eCW1 ([facility]) [place] [address] [facility] [address] 03/18/2020 12:00:00 AM EDT eCW1 ([facility]) [place] [address] [facility] [place] [address] 03/05/2020 12:00:00 AM EDT eCW1 ([facility]) [place] [address] [facility] [address] 03/05/2020 12:00:00 AM EDT eCW1 ([facility]) Immunizations Vaccine Date Status Description Data Source(s) influenza, recombinant, quadrIvalent,injectable, prese rvative free 04/02/2021 05:09:00 PM EDT completed eCW1 ([facility]) influenza, recombinant, quadrIvalent,injectable, prese rvative free 04/02/2021 05:09:00 PM EDT completed eCW1 ([facility]) Pfizer Covid-19 Sars-Cov-2, mRNA, LNP-S, PF, 30 mcg/ 0 .3 mL 09/13/2020 12:00:00 AM EDT completed [facility]) COVID-19 (Pfizer), mRNA, LNP-S, PF, 30 mcg/0.3 mL dose 09/13/2020 12:00:[address] [facility] COVID-19 VACCINE Pfizer 09/13/2020 12:00:00 AM EDT completed [employer] Vaccine Series Complete: YESThis Data wa s Submitted to [facility] Via [employer]. COVID-19 (Pfizer), mRNA, LNP-S, PF, 30 mcg/0.3 mL dose 08/23/2020 12:00:[address] [facility] COVID-19 VACCINE Pfizer 08/23/2020 12:00:00 AM EST [facility] Complete: NOThis Data was Submitted to [facility] Via [employer]. Pfizer Covid-19 Sars-Cov-2, mRNA, LNP-S, PF, 30 mcg/ 0 .3 mL 08/22/2020 11:00:00 PM EST completed [facility] ([facility]) Medications Medication Brand Name Start Date Product Form Dose Route Admi nistrative Instructions Pharmacy Instructions Status Indications Reaction Description Data Source(s) 400 mg 04/03/2021 12:00:00 AM EDT capsule 60 TAKE ONE CAPSULE BY MOUTH TWICE A DAY TAKE ONE CAPSULE BY MOUTH TWICE A DAY SOLD: 04/03/2021 [facility] gabapentin 400 MG Oral Capsule Gabapentin 400 MG Gabapentin 400 MG 04/02/2021 12:00:00 AM EDT 1.0 {capsule} active G abapentin 400 MG [facility] gabapentin 400 MG Oral Capsule Gabapentin 400 MG Gabapentin 400 MG 04/02/2021 12:00:00 AM EDT 1.0 {capsule} active G abapentin 400 MG [facility] 20 mg 03/19/2021 12:00:00 AM EDT tablet 60 TAKE ONE TABLET BY MOUTH TWICE A DAY MAXIMUM DAILY DOSE = 2 TAKE ONE TABLET BY MOUTH TWICE A DAY MAX IMUM DAILY DOSE = 2 SOLD: 03/19/2021 [facility] Amphetamine aspartate 5 MG / Amphetamine Sulfate 5 MG / Dextroamphetamine saccharate 5 MG / Dextroamphetamine Sulfate 5 MG Oral Tablet [Adderall] Adderall 20 MG Adderall 20 MG 03/17/2021 12:00:00 AM EDT a ctive Adderall 20 MG eCW1 ([facility]) Amphetamine aspartate 5 MG / Amphetamine Sulfate 5 MG / Dextroamphetamine saccharate 5 MG / Dextroamphetamine Sulfate 5 MG Oral Tablet [Adderall] Adderall 20 MG Adderall 20 MG 03/17/2021 12:00:00 AM EDT a ctive Adderall 20 MG eCW1 ([facility]) Amphetamine aspartate 5 MG / Amphetamine Sulfate 5 MG / Dextroamphetamine saccharate 5 MG / Dextroamphetamine Sulfate 5 MG Oral Tablet [Adderall] Adderall 20 MG Adderall 20 MG 03/17/2021 12:00:00 AM EDT a ctive Adderall 20 MG eCW1 ([facility]) Amphetamine aspartate 5 MG / Amphetamine Sulfate 5 MG / Dextroamphetamine saccharate 5 MG / Dextroamphetamine Sulfate 5 MG Oral Tablet [Adderall] Adderall 20 MG Adderall 20 MG 03/17/2021 12:00:00 AM EDT a ctive Adderall 20 MG eCW1 ([facility]) 50 mg 03/07/2021 12:00:00 AM EDT tablet 14 TAKE ONE TABLET BY MOUTH TWICE A DAY NEEDED FOR SEVERE PAIN MAXIMUM DAILY DOSE = 2 TAKE ONE TABLET BY MOUTH TWICE A DAY NEEDED FOR SEVERE PAIN MAXIMUM DAILY DOSE = 2 SOLD: 03/10/2021 [facility] 50 mg 03/07/2021 12:00:00 AM EDT tablet 31 TAKE ONE TABLET BY MOUTH TWICE A DAY NEEDED FOR SEVERE PAIN MAXIMUM DAILY DOSE = 2 TAKE ONE TABLET BY MOUTH TWICE A DAY NEEDED FOR SEVERE PAIN MAXIMUM DAILY DOSE = 2 SOLD: 03/23/2021 [facility] tramadol hydrochloride 50 MG Oral Tablet traMADol HCl 50 MG traMADol HCl 50 MG 03/05/2021 12:00:00 AM EDT 1.0 {tablet_as_needed} active traMADol HCl 50 MG [facility]CW1 [facility] tramadol hydrochloride 50 MG Oral Tablet traMADol HCl 50 MG traMADol HCl 50 MG 03/05/2021 12:00:00 AM EDT 1.0 {tablet_as_needed} active traMADol HCl 50 MG eCW1 [facility] tramadol hydrochloride 50 MG Oral Tablet traMADol HCl 50 MG traMADol HCl 50 MG 03/05/2021 12:00:00 AM EDT 1.0 {tablet_as_needed} active traMADol HCl 50 MG eCW1 [facility]) tramadol hydrochloride 50 MG Oral Tablet traMADol HCl 50 MG traMADol HCl 50 MG 03/05/2021 12:00:00 AM EDT 1.0 {tablet_as_needed} active traMADol HCl 50 MG eCW1 [facility]) tramadol hydrochloride 50 MG Oral Tablet traMADol HCl 50 MG traMADol HCl 50 MG 03/05/2021 12:00:00 AM EDT 1.0 {tablet_as_needed} suspended traMADol HCl 50 MG eCW1 ([facility]) tramadol hydrochloride 50 MG Oral Tablet traMADol HCl 50 MG traMADol HCl 50 MG 03/05/2021 12:00:00 AM EDT 1.0 {tablet_as_needed} active traMADol HCl 50 MG eCW1 [facility]) tramadol hydrochloride 50 MG Oral Tablet traMADol HCl 50 MG traMADol HCl 50 MG 03/05/2021 12:00:00 AM EDT 1.0 {tablet_as_needed} suspended traMADol HCl 50 MG eCW1 [facility] tramadol hydrochloride 50 MG Oral Tablet traMADol HCl 50 MG traMADol HCl 50 MG 03/05/2021 12:00:00 AM EDT 1.0 {tablet_as_needed} active traMADol HCl 50 MG eCW1 ([facility] tramadol hydrochloride 50 MG Oral Tablet traMADol HCl 50 MG traMADol HCl 50 MG 03/05/2021 12:00:00 AM EDT 1.0 {tablet_as_needed} active traMADol HCl 50 MG [facility]CW[facility] 168 HR Buprenorphine 0.005 MG/HR Transdermal Patch [Bu Trans] Butrans 5 MCG/HR Butrans 5 MCG/HR 03/03/2021 12:00:00 AM EDT 1.0 {patch_to_skin} active Butrans 5 MCG/HR eCW1 ([facility]) 168 HR Buprenorphine 0.005 MG/HR Transdermal Patch [Bu Trans] Butrans 5 MCG/HR Butrans 5 MCG/HR 03/03/2021 12:00:00 AM EDT 1.0 {patch_to_skin} active Butrans 5 MCG/HR eCW1 ([facility]) 168 HR Buprenorphine 0.005 MG/HR Transdermal Patch [Bu Trans] Butrans 5 MCG/HR Butrans 5 MCG/HR 03/03/2021 12:00:00 AM EDT 1.0 {patch_to_skin} active Butrans 5 MCG/HR eCW1 ([facility]) 168 HR Buprenorphine 0.005 MG/HR Transdermal Patch [Bu Trans] Butrans 5 MCG/HR Butrans 5 MCG/HR 03/03/2021 12:00:00 AM EDT 1.0 {patch_to_skin} suspended Butrans 5 MCG/HR eCW1 [facility] 168 HR Buprenorphine 0.005 MG/HR Transdermal Patch [Bu Trans] Butrans 5 MCG/HR Butrans 5 MCG/HR 03/03/2021 12:00:00 AM EDT 1.0 {patch_to_skin} active Butrans 5 MCG/HR eCW1 ([facility]) 168 HR Buprenorphine 0.005 MG/HR Transdermal Patch [Bu Trans] Butrans 5 MCG/HR Butrans 5 MCG/HR 03/03/2021 12:00:00 AM EDT 1.0 {patch_to_skin} active Butrans 5 MCG/HR eCW1 ([facility]) 168 HR Buprenorphine 0.005 MG/HR Transdermal Patch [Bu Trans] Butrans 5 MCG/HR Butrans 5 MCG/HR 03/03/2021 12:00:00 AM EDT 1.0 {patch_to_skin} active Butrans 5 MCG/HR eCW1 ([facility]) 168 HR Buprenorphine 0.005 MG/HR Transdermal Patch [Bu Trans] Butrans 5 MCG/HR Butrans 5 MCG/HR 03/03/2021 12:00:00 AM EDT 1.0 {patch_to_skin} active Butrans 5 MCG/HR eCW1 ([facility]) 168 HR Buprenorphine 0.005 MG/HR Transdermal Patch [Bu Trans] Butrans 5 MCG/HR Butrans 5 MCG/HR 03/03/2021 12:00:00 AM EDT 1.0 {patch_to_skin} suspended Butrans 5 MCG/HR eCW1 [facility] 168 HR Buprenorphine 0.005 MG/HR Transdermal Patch [Bu Trans] Butrans 5 MCG/HR Butrans 5 MCG/HR 03/03/2021 12:00:00 AM EDT 1.0 {patch_to_skin} active Butrans 5 MCG/HR eCW1 ([facility]) Triamcinolone Acetonide 0.25 MG/ML Topic al Cream Triamcinolone Acetonide 0.025 % Triamcinolone Acetonide 0.025 % 02/26/2021 12:00:00 AM EDT 1.0 {application} active Triamcinolone Aceton thomas 0.025 % eCW1 [facility]) [place] 75 MCG Bel[place] 75 MCG 02/26/2021 12:00:00 AM EDT suspended [place] 75 MCG eCW1 ([facility]) Triamcinolone Acetonide 0.25 MG/ML Topic al Cream Triamcinolone Acetonide 0.025 % Triamcinolone Acetonide 0.025 % 02/26/2021 12:00:00 AM EDT 1.0 {application} active Triamcinolone Aceton thomas 0.025 % eCW1 ([facility]) [place] 75 MCG [place] 75 MCG 02/26/2021 12:00:00 AM EDT active [place] 75 MCG eCW1 ([facility]) [place] 75 MCG [place] 75 MCG 02/26/2021 12:00:00 AM EDT active [place] 75 MCG eCW1 ([facility]) [place] 75 MCG [place] 75 MCG 02/26/2021 12:00:00 AM EDT suspended [place] 75 MCG eCW1 ([facility]) [place] 75 MCG [place] 75 MCG 02/26/2021 12:00:00 AM EDT active [place] 75 MCG eCW1 ([facility]) [place] 75 MCG [place] 75 MCG 02/26/2021 12:00:00 AM EDT active [place] 75 MCG eCW1 ([facility]) [place] 75 MCG [place] 75 MCG 02/26/2021 12:00:00 AM EDT active [place] 75 MCG eCW1 ([facility]) Triamcinolone Acetonide 0.25 MG/ML Topic al Cream Triamcinolone Acetonide 0.025 % Triamcinolone Acetonide 0.025 % 02/26/2021 12:00:00 AM EDT 1.0 {application} active Triamcinolone Aceton thomas 0.025 % eCW1 ([facility]) Triamcinolone Acetonide 0.25 MG/ML Topic al Cream Triamcinolone Acetonide 0.025 % Triamcinolone Acetonide 0.025 % 02/26/2021 12:00:00 AM EDT 1.0 {application} active Triamcinolone Aceton thomas 0.025 % eCW1 ([facility]) Triamcinolone Acetonide 0.25 MG/ML Topic al Cream Triamcinolone Acetonide 0.025 % Triamcinolone Acetonide 0.025 % 02/26/2021 12:00:00 AM EDT 1.0 {application} active Triamcinolone Aceton thomas 0.025 % eCW1 ([facility]) [place] 75 MCG [place] 75 MCG 02/26/2021 12:00:00 AM EDT active [place] 75 MCG eCW1 ([facility]) [place] 75 MCG [place] 75 MCG 02/26/2021 12:00:00 AM EDT active [place] 75 MCG eCW1 ([facility]) [place] 75 MCG [place] 75 MCG 02/26/2021 12:00:00 AM EDT active [place] 75 MCG eCW1 ([facility]) [place] 75 MCG [place] 75 MCG 02/26/2021 12:00:00 AM EDT active [place] 75 MCG eCW1 ([facility]) Triamcinolone Acetonide 0.25 MG/ML Topic al Cream Triamcinolone Acetonide 0.025 % Triamcinolone Acetonide 0.025 % 02/26/2021 12:00:00 AM EDT 1.0 {application} active Triamcinolone Aceton thomas 0.025 % eCW1 ([facility]) Triamcinolone Acetonide 0.25 MG/ML Topic al Cream Triamcinolone Acetonide 0.025 % Triamcinolone Acetonide 0.025 % 02/26/2021 12:00:00 AM EDT 1.0 {application} active Triamcinolone Aceton thomas 0.025 % eCW1 ([facility]) Triamcinolone Acetonide 0.25 MG/ML Topic al Cream Triamcinolone Acetonide 0.025 % Triamcinolone Acetonide 0.025 % 02/26/2021 12:00:00 AM EDT 1.0 {application} active Triamcinolone Aceton thomas 0.025 % eCW1 ([facility]) Triamcinolone Acetonide 0.25 MG/ML Topic al Cream Triamcinolone Acetonide 0.025 % Triamcinolone Acetonide 0.025 % 02/26/2021 12:00:00 AM EDT 1.0 {application} active Triamcinolone Aceton thmoas 0.025 % eCW1 ([facility]) Triamcinolone Acetonide 0.25 MG/ML Topic al Cream Triamcinolone Acetonide 0.025 % Triamcinolone Acetonide 0.025 % 02/26/2021 12:00:00 AM EDT 1.0 {application} active Triamcinolone Aceton thomas 0.025 % eCW1 ([facility]) 0.025 % 02/26/2021 12:00:00 AM EDT cream 15 APPLY TO FINGERS TWO TIMES A DAY APPLY TO FINGERS TWO TIMES A DAY SOLD: 02/27/2021 [facility] Triamcinolone Acetonide 0.25 MG/ML Topic al Cream Triamcinolone Acetonide 0.025 % Triamcinolone Acetonide 0.025 % 02/26/2021 12:00:00 AM EDT 1.0 {application} active Triamcinolone Aceton thomas 0.025 % eCW1 ([facility] 500 mg 02/21/2021 12:00:00 AM EDT capsule 30 TAKE ONE CAPSULE BY MOUTH THREE TIMES A DAY TAKE ONE CAPSULE BY MOUTH THREE TIMES A DAY SOLD: 02/24/2021 [facility] Amphetamine aspartate 5 MG / Amphetamine Sulfate 5 MG / Dextroamphetamine saccharate 5 MG / Dextroamphetamine Sulfate 5 MG Oral Tablet 20 mg DEXTROAMPHETAMINE/AMPHETAMINE 02/18/2021 12:00:00 AM EDT tablet 60 TAKE ONE TABLET BY MOUTH TWICE A DAY, MAXIMUM DAILY DOSE = 2 TABLETS TAKE ONE TABLET BY MOUTH TWICE A DAY, MAXIMUM DAILY DOSE = 2 TABLETS SOLD: 02/18/2021 [facility] 200 mg 02/17/2021 12:00:00 AM EDT tablet 60 TAKE ONE TABLET BY MOUTH TWICE A DAY TAKE ONE TABLET BY MOUTH TWICE A DAY SOLD: 03/19/2021 [facility] 200 mg 02/17/2021 12:00:00 AM EDT tablet 60 TAKE ONE TABLET BY MOUTH TWICE A DAY TAKE ONE TABLET BY MOUTH TWICE A DAY SOLD: 02/18/2021 [facility] Amphetamine aspartate 5 MG / Amphetamine Sulfate 5 MG / Dextroamphetamine saccharate 5 MG / Dextroamphetamine Sulfate 5 MG Oral Tablet [Adderall] Adderall 20 MG Adderall 20 MG 02/14/2021 12:00:00 AM EDT a ctive Adderall 20 MG eCW1 ([facility]) Amphetamine aspartate 5 MG / Amphetamine Sulfate 5 MG / Dextroamphetamine saccharate 5 MG / Dextroamphetamine Sulfate 5 MG Oral Tablet [Adderall] Adderall 20 MG Adderall 20 MG 02/14/2021 12:00:00 AM EDT a ctive Adderall 20 MG eCW1 ([facility]) Amphetamine aspartate 5 MG / Amphetamine Sulfate 5 MG / Dextroamphetamine saccharate 5 MG / Dextroamphetamine Sulfate 5 MG Oral Tablet [Adderall] Adderall 20 MG Adderall 20 MG 02/14/2021 12:00:00 AM EDT a ctive Adderall 20 MG eCW1 ([facility]) Amphetamine aspartate 5 MG / Amphetamine Sulfate 5 MG / Dextroamphetamine saccharate 5 MG / Dextroamphetamine Sulfate 5 MG Oral Tablet [Adderall] Adderall 20 MG Adderall 20 MG 02/14/2021 12:00:00 AM EDT a ctive Adderall 20 MG eCW1 ([facility]) Amphetamine aspartate 5 MG / Amphetamine Sulfate 5 MG / Dextroamphetamine saccharate 5 MG / Dextroamphetamine Sulfate 5 MG Oral Tablet [Adderall] Adderall 20 MG Adderall 20 MG 02/14/2021 12:00:00 AM EDT a ctive Adderall 20 MG eCW1 ([facility]) Amphetamine aspartate 5 MG / Amphetamine Sulfate 5 MG / Dextroamphetamine saccharate 5 MG / Dextroamphetamine Sulfate 5 MG Oral Tablet [Adderall] Adderall 20 MG Adderall 20 MG 02/14/2021 12:00:00 AM EDT a ctive Adderall 20 MG eCW1 ([facility]) Amphetamine aspartate 5 MG / Amphetamine Sulfate 5 MG / Dextroamphetamine saccharate 5 MG / Dextroamphetamine Sulfate 5 MG Oral Tablet [Adderall] Adderall 20 MG Adderall 20 MG 02/14/2021 12:00:00 AM EDT a ctive Adderall 20 MG eCW1 ([facility]) Amphetamine aspartate 5 MG / Amphetamine Sulfate 5 MG / Dextroamphetamine saccharate 5 MG / Dextroamphetamine Sulfate 5 MG Oral Tablet [Adderall] Adderall 20 MG Adderall 20 MG 02/14/2021 12:00:00 AM EDT a ctive Adderall 20 MG eCW1 ([facility]) Amphetamine aspartate 5 MG / Amphetamine Sulfate 5 MG / Dextroamphetamine saccharate 5 MG / Dextroamphetamine Sulfate 5 MG Oral Tablet [Adderall] Adderall 20 MG Adderall 20 MG 02/14/2021 12:00:00 AM EDT a ctive Adderall 20 MG eCW1 ([facility]) Amphetamine aspartate 5 MG / Amphetamine Sulfate 5 MG / Dextroamphetamine saccharate 5 MG / Dextroamphetamine Sulfate 5 MG Oral Tablet [Adderall] Adderall 20 MG Adderall 20 MG 02/14/2021 12:00:00 AM EDT a ctive Adderall 20 MG eCW1 ([facility]) 600 mg 01/18/2021 12:00:00 AM EDT tablet 120 TAKE ONE TABLET BY MOUTH FOUR TIMES A DAY TAKE ONE TABLET BY MOUTH FOUR TIMES A DAY SOLD: 02/18/2021 [facility] 600 mg 01/18/2021 12:00:00 AM EDT tablet 120 TAKE ONE TABLET BY MOUTH FOUR TIMES A DAY TAKE ONE TABLET BY MOUTH FOUR TIMES A DAY SOLD: 01/20/2021 [facility] 20 mg 01/18/2021 12:00:00 AM EDT tablet 60 TAKE ONE TABLET BY MOUTH TWICE A DAY * MAXIMUM DAILY DOSE = 2 TAKE ONE TABLET BY MOUTH TWICE A DAY * M AXIMUM DAILY DOSE = 2 SOLD: 01/20/2021 [facility] 600 mg 01/18/2021 12:00:00 AM EDT tablet 120 TAKE ONE TABLET BY MOUTH FOUR TIMES A DAY TAKE ONE TABLET BY MOUTH FOUR TIMES A DAY SOLD: 03/19/2021 [facility] Amphetamine aspartate 5 MG / Amphetamine Sulfate 5 MG / Dextroamphetamine saccharate 5 MG / Dextroamphetamine Sulfate 5 MG Oral Tablet [Adderall] Adderall 20 MG Adderall 20 MG 01/17/2021 12:00:00 AM EDT a ctive Adderall 20 MG eCW1 ([facility]) Amphetamine aspartate 5 MG / Amphetamine Sulfate 5 MG / Dextroamphetamine saccharate 5 MG / Dextroamphetamine Sulfate 5 MG Oral Tablet [Adderall] Adderall 20 MG Adderall 20 MG 01/17/2021 12:00:00 AM EDT a ctive Adderall 20 MG eCW1 ([facility]) 60 mg 01/01/2021 12:00:00 AM EDT capsule,delayed release (DR/EC) 90 TAKE ONE CAPSULE BY MOUTH EVERY DAY TAKE ONE CAPSULE BY MOUTH EVERY DAY SOLD: 01/02/2021 [facility] 60 mg 01/01/2021 12:00:00 AM EDT capsule,delayed release (DR/EC) 90 TAKE ONE CAPSULE BY MOUTH EVERY DAY TAKE ONE CAPSULE BY MOUTH EVERY DAY SOLD: 04/03/2021 [facility] 50 mg 12/27/2020 12:00:00 AM EDT capsule 60 TAKE ONE CAPSULE BY MOUTH TWICE A DAY, MAXIMUM DAILY DOSE = 2 CAPSULES TAKE ONE CAPSULE BY MOUTH TWICE A DAY, MAXIMUM DAILY DOSE = 2 CAPSULES SOLD: 01/02/2021 [facility] pregabalin 50 MG Oral Capsule [Lyrica] Lyrica 50 MG Lyrica 5 0 MG 12/26/2020 12:00:00 AM EDT 1.0 {capsule} suspended Lyrica 50 MG eCW1 ([facility]) Cyclobenzaprine hydrochloride 5 MG Oral Tablet Cyclobe nzaprine HCl 5 MG Cyclobenzaprine HCl 5 MG 12/26/2020 12:00:00 AM EDT 1.0 {tablet_at_bedtime_as_needed} suspended Cyclobenzaprine HCl 5 MG eCW1 ([facility]) pregabalin 50 MG Oral Capsule [Lyrica] Lyrica 50 MG Lyrica 5 0 MG 12/26/2020 12:00:00 AM EDT 1.0 {capsule} suspended Lyrica 50 MG eCW1 ([facility]) Cyclobenzaprine hydrochloride 5 MG Oral Tablet Cyclobe nzaprine HCl 5 MG Cyclobenzaprine HCl 5 MG 12/26/2020 12:00:00 AM EDT 1.0 {tablet_at_bedtime_as_needed} active Cy clobenzaprine HCl 5 MG eCW1 ([facility]) pregabalin 50 MG Oral Capsule [Lyrica] Lyrica 50 MG Lyrica 5 0 MG 12/26/2020 12:00:00 AM EDT 1.0 {capsule} suspended Lyrica 50 MG eCW1 ([facility]) Cyclobenzaprine hydrochloride 5 MG Oral Tablet Cyclobe nzaprine HCl 5 MG Cyclobenzaprine HCl 5 MG 12/26/2020 12:00:00 AM EDT 1.0 {tablet_at_bedtime_as_needed} suspended Cyclobenzaprine HCl 5 MG eCW1 ([facility]) pregabalin 50 MG Oral Capsule [Lyrica] Lyrica 50 MG Lyrica 5 0 MG 12/26/2020 12:00:00 AM EDT 1.0 {capsule} suspended Lyrica 50 MG eCW1 ([facility]) Cyclobenzaprine hydrochloride 5 MG Oral Tablet Cyclobe nzaprine HCl 5 MG Cyclobenzaprine HCl 5 MG 12/26/2020 12:00:00 AM EDT 1.0 {tablet_at_bedtime_as_needed} suspended Cyclobenzaprine HCl 5 MG eCW1 ([facility]) pregabalin 50 MG Oral Capsule [Lyrica] Lyrica 50 MG Lyrica 5 0 MG 12/26/2020 12:00:00 AM EDT 1.0 {capsule} suspended Lyrica 50 MG eCW1 ([facility]) Cyclobenzaprine hydrochloride 5 MG Oral Tablet Cyclobe nzaprine HCl 5 MG Cyclobenzaprine HCl 5 MG 12/26/2020 12:00:00 AM EDT 1.0 {tablet_at_bedtime_as_needed} active Cy clobenzaprine HCl 5 MG eCW1 ([facility]) pregabalin 50 MG Oral Capsule [Lyrica] Lyrica 50 MG Lyrica 5 0 MG 12/26/2020 12:00:00 AM EDT 1.0 {capsule} suspended Lyrica 50 MG eCW1 ([facility]) pregabalin 50 MG Oral Capsule [Lyrica] Lyrica 50 MG Lyrica 5 0 MG 12/26/2020 12:00:00 AM EDT 1.0 {capsule} active L yrica 50 MG eCW1 ([facility]) Cyclobenzaprine hydrochloride 5 MG Oral Tablet Cyclobe nzaprine HCl 5 MG Cyclobenzaprine HCl 5 MG 12/26/2020 12:00:00 AM EDT 1.0 {tablet_at_bedtime_as_needed} active Cy clobenzaprine HCl 5 MG eCW1 ([facility]) Cyclobenzaprine hydrochloride 5 MG Oral Tablet Cyclobe nzaprine HCl 5 MG Cyclobenzaprine HCl 5 MG 12/26/2020 12:00:00 AM EDT 1.0 {tablet_at_bedtime_as_needed} suspended Cyclobenzaprine HCl 5 MG eCW1 ([facility]) Cyclobenzaprine hydrochloride 5 MG Oral Tablet Cyclobe nzaprine HCl 5 MG Cyclobenzaprine HCl 5 MG 12/26/2020 12:00:00 AM EDT 1.0 {tablet_at_bedtime_as_needed} suspended Cyclobenzaprine HCl 5 MG eCW1 ([facility]) Cyclobenzaprine hydrochloride 5 MG Oral Tablet Cyclobe nzaprine HCl 5 MG Cyclobenzaprine HCl 5 MG 12/26/2020 12:00:00 AM EDT 1.0 {tablet_at_bedtime_as_needed} suspended Cyclobenzaprine HCl 5 MG eCW1 ([facility]) Cyclobenzaprine hydrochloride 5 MG Oral Tablet Cyclobe nzaprine HCl 5 MG Cyclobenzaprine HCl 5 MG 12/26/2020 12:00:00 AM EDT 1.0 {tablet_at_bedtime_as_needed} active Cy clobenzaprine HCl 5 MG eCW1 ([facility]) Cyclobenzaprine hydrochloride 5 MG Oral Tablet Cyclobe nzaprine HCl 5 MG Cyclobenzaprine HCl 5 MG 12/26/2020 12:00:00 AM EDT 1.0 {tablet_at_bedtime_as_needed} active Cy clobenzaprine HCl 5 MG eCW1 ([facility]) pregabalin 50 MG Oral Capsule [Lyrica] Lyrica 50 MG Lyrica 5 0 MG 12/26/2020 12:00:00 AM EDT 1.0 {capsule} suspended Lyrica 50 MG eCW1 ([facility]) Cyclobenzaprine hydrochloride 5 MG Oral Tablet Cyclobe nzaprine HCl 5 MG Cyclobenzaprine HCl 5 MG 12/26/2020 12:00:00 AM EDT 1.0 {tablet_at_bedtime_as_needed} active Cy clobenzaprine HCl 5 MG eCW1 ([facility]) pregabalin 50 MG Oral Capsule [Lyrica] Lyrica 50 MG Lyrica 5 0 MG 12/26/2020 12:00:00 AM EDT 1.0 {capsule} suspended Lyrica 50 MG eCW1 ([facility]) Cyclobenzaprine hydrochloride 5 MG Oral Tablet Cyclobe nzaprine HCl 5 MG Cyclobenzaprine HCl 5 MG 12/26/2020 12:00:00 AM EDT 1.0 {tablet_at_bedtime_as_needed} suspended Cyclobenzaprine HCl 5 MG eCW1 ([facility]) Cyclobenzaprine hydrochloride 5 MG Oral Tablet Cyclobe nzaprine HCl 5 MG Cyclobenzaprine HCl 5 MG 12/26/2020 12:00:00 AM EDT 1.0 {tablet_at_bedtime_as_needed} active Cy clobenzaprine HCl 5 MG eCW1 ([facility]) Cyclobenzaprine hydrochloride 5 MG Oral Tablet Cyclobe nzaprine HCl 5 MG Cyclobenzaprine HCl 5 MG 12/26/2020 12:00:00 AM EDT 1.0 {tablet_at_bedtime_as_needed} suspended Cyclobenzaprine HCl 5 MG eCW1 ([facility]) pregabalin 50 MG Oral Capsule [Lyrica] Lyrica 50 MG Lyrica 5 0 MG 12/26/2020 12:00:00 AM EDT 1.0 {capsule} active L yrica 50 MG eCW1 ([facility]) pregabalin 50 MG Oral Capsule [Lyrica] Lyrica 50 MG Lyrica 5 0 MG 12/26/2020 12:00:00 AM EDT 1.0 {capsule} active L yrica 50 MG eCW1 ([facility]) pregabalin 50 MG Oral Capsule [Lyrica] Lyrica 50 MG Lyrica 5 0 MG 12/26/2020 12:00:00 AM EDT 1.0 {capsule} active L yrica 50 MG eCW1 ([facility]) pregabalin 50 MG Oral Capsule [Lyrica] Lyrica 50 MG Lyrica 5 0 MG 12/26/2020 12:00:00 AM EDT 1.0 {capsule} active L yrica 50 MG eCW1 ([facility]) Cyclobenzaprine hydrochloride 5 MG Oral Tablet Cyclobe nzaprine HCl 5 MG Cyclobenzaprine HCl 5 MG 12/26/2020 12:00:00 AM EDT 1.0 {tablet_at_bedtime_as_needed} active Cy clobenzaprine HCl 5 MG eCW1 ([facility]) pregabalin 50 MG Oral Capsule [Lyrica] Lyrica 50 MG Lyrica 5 0 MG 12/26/2020 12:00:00 AM EDT 1.0 {capsule} active L yrica 50 MG eCW1 ([facility]) Cyclobenzaprine hydrochloride 5 MG Oral Tablet CYCLOBENZAPRI NE HCL 12/26/2020 12:00:00 AM EDT tablet 10 TAKE ONE TABLET BY MOUTH AT BEDTIME NEEDED TWO TIMES A DAY TAKE ONE TABLET BY MOUTH AT BEDTIME NEEDED TWO TIME S A DAY SOLD: 12/26/2020 [facility] pregabalin 50 MG Oral Capsule [Lyrica] Lyrica 50 MG Lyrica 5 0 MG 12/26/2020 12:00:00 AM EDT 1.0 {capsule} suspended Lyrica 50 MG eCW1 ([facility]) Cyclobenzaprine hydrochloride 5 MG Oral Tablet Cyclobe nzaprine HCl 5 MG Cyclobenzaprine HCl 5 MG 12/26/2020 12:00:00 AM EDT 1.0 {tablet_at_bedtime_as_needed} active Cy clobenzaprine HCl 5 MG eCW1 ([facility]) Cyclobenzaprine hydrochloride 5 MG Oral Tablet Cyclobe nzaprine HCl 5 MG Cyclobenzaprine HCl 5 MG 12/26/2020 12:00:00 AM EDT 1.0 {tablet_at_bedtime_as_needed} suspended Cyclobenzaprine HCl 5 MG eCW1 ([facility]) pregabalin 50 MG Oral Capsule [Lyrica] Lyrica 50 MG Lyrica 5 0 MG 12/26/2020 12:00:00 AM EDT 1.0 {capsule} suspended Lyrica 50 MG eCW1 ([facility]) pregabalin 50 MG Oral Capsule [Lyrica] Lyrica 50 MG Lyrica 5 0 MG 12/26/2020 12:00:00 AM EDT 1.0 {capsule} active L yrica 50 MG eCW1 ([facility]) pregabalin 50 MG Oral Capsule [Lyrica] Lyrica 50 MG Lyrica 5 0 MG 12/26/2020 12:00:00 AM EDT 1.0 {capsule} active L yrica 50 MG eCW1 ([facility]) Cyclobenzaprine hydrochloride 5 MG Oral Tablet Cyclobe nzaprine HCl 5 MG Cyclobenzaprine HCl 5 MG 12/26/2020 12:00:00 AM EDT 1.0 {tablet_at_bedtime_as_needed} suspended Cyclobenzaprine HCl 5 MG eCW1 ([facility]) pregabalin 50 MG Oral Capsule [Lyrica] Lyrica 50 MG Lyrica 5 0 MG 12/26/2020 12:00:00 AM EDT 1.0 {capsule} active L yrica 50 MG eCW1 ([facility]) Cyclobenzaprine hydrochloride 5 MG Oral Tablet Cyclobe nzaprine HCl 5 MG Cyclobenzaprine HCl 5 MG 12/26/2020 12:00:00 AM EDT 1.0 {tablet_at_bedtime_as_needed} suspended Cyclobenzaprine HCl 5 MG eCW1 ([facility]) pregabalin 50 MG Oral Capsule [Lyrica] Lyrica 50 MG Lyrica 5 0 MG 12/26/2020 12:00:00 AM EDT 1.0 {capsule} active L yrica 50 MG eCW1 ([facility]) Cyclobenzaprine hydrochloride 5 MG Oral Tablet Cyclobe nzaprine HCl 5 MG Cyclobenzaprine HCl 5 MG 12/26/2020 12:00:00 AM EDT 1.0 {tablet_at_bedtime_as_needed} active Cy clobenzaprine HCl 5 MG eCW1 ([facility]) pregabalin 50 MG Oral Capsule [Lyrica] Lyrica 50 MG Lyrica 5 0 MG 12/26/2020 12:00:00 AM EDT 1.0 {capsule} suspended Lyrica 50 MG eCW1 ([facility]) 200 mg 12/24/2020 12:00:00 AM EDT tablet 60 TAKE ONE TABLET BY MOUTH TWICE A DAY TAKE ONE TABLET BY MOUTH TWICE A DAY SOLD: 12/24/2020 [facility] 200 mg 12/24/2020 12:00:00 AM EDT tablet 60 TAKE ONE TABLET BY MOUTH TWICE A DAY TAKE ONE TABLET BY MOUTH TWICE A DAY SOLD: 01/20/2021 [facility] 20 mg 12/21/2020 12:00:00 AM EDT tablet 60 TAKE ONE TABLET BY MOUTH TWO TIMES A DAY MAXIMUM DAILY DOSE = 2 TABLETS TAKE ONE TABLET BY MOUTH TWO TIMES A DAY MAXIMUM DAILY DOSE = 2 TABLETS SOLD: 12/23/2020 [facility] Amphetamine aspartate 5 MG / Amphetamine Sulfate 5 MG / Dextroamphetamine saccharate 5 MG / Dextroamphetamine Sulfate 5 MG Oral Tablet [Adderall] Adderall 20 MG Adderall 20 MG 12/19/2020 12:00:00 AM EDT a ctive Adderall 20 MG eCW1 ([facility]) Amphetamine aspartate 5 MG / Amphetamine Sulfate 5 MG / Dextroamphetamine saccharate 5 MG / Dextroamphetamine Sulfate 5 MG Oral Tablet [Adderall] Adderall 20 MG Adderall 20 MG 12/19/2020 12:00:00 AM EDT a ctive Adderall 20 MG eCW1 ([facility]) Amphetamine aspartate 5 MG / Amphetamine Sulfate 5 MG / Dextroamphetamine saccharate 5 MG / Dextroamphetamine Sulfate 5 MG Oral Tablet [Adderall] Adderall 20 MG Adderall 20 MG 12/19/2020 12:00:00 AM EDT a ctive Adderall 20 MG eCW1 ([facility]) Amphetamine aspartate 5 MG / Amphetamine Sulfate 5 MG / Dextroamphetamine saccharate 5 MG / Dextroamphetamine Sulfate 5 MG Oral Tablet [Adderall] Adderall 20 MG Adderall 20 MG 12/19/2020 12:00:00 AM EDT a ctive Adderall 20 MG eCW1 ([facility]) Amphetamine aspartate 5 MG / Amphetamine Sulfate 5 MG / Dextroamphetamine saccharate 5 MG / Dextroamphetamine Sulfate 5 MG Oral Tablet [Adderall] Adderall 20 MG Adderall 20 MG 12/19/2020 12:00:00 AM EDT a ctive Adderall 20 MG eCW1 ([facility]) Amphetamine aspartate 5 MG / Amphetamine Sulfate 5 MG / Dextroamphetamine saccharate 5 MG / Dextroamphetamine Sulfate 5 MG Oral Tablet [Adderall] Adderall 20 MG Adderall 20 MG 12/19/2020 12:00:00 AM EDT a ctive Adderall 20 MG eCW1 ([facility]) Amphetamine aspartate 5 MG / Amphetamine Sulfate 5 MG / Dextroamphetamine saccharate 5 MG / Dextroamphetamine Sulfate 5 MG Oral Tablet [Adderall] Adderall 20 MG Adderall 20 MG 12/19/2020 12:00:00 AM EDT a ctive Adderall 20 MG eCW1 ([facility]) Amphetamine aspartate 5 MG / Amphetamine Sulfate 5 MG / Dextroamphetamine saccharate 5 MG / Dextroamphetamine Sulfate 5 MG Oral Tablet [Adderall] Adderall 20 MG Adderall 20 MG 12/19/2020 12:00:00 AM EDT a ctive Adderall 20 MG eCW1 ([facility] 500 mg 12/16/2020 12:00:00 AM EDT tablet 30 TAKE ONE TABLET DAILY AFTER COMPLETING 5 DAYS OF ACYCLOVIR TAKE ONE TABLET DAILY AFTER COMPLETING 5 DAYS OF ACYCLOVIR SOLD: 01/20/2021 [facility] 500 mg 12/16/2020 12:00:00 AM EDT tablet 30 TAKE ONE TABLET DAILY AFTER COMPLETING 5 DAYS OF ACYCLOVIR TAKE ONE TABLET DAILY AFTER COMPLETING 5 DAYS OF ACYCLOVIR SOLD: 12/19/2020 [facility] 60 ACTUAT Fluticasone propionate 0.113 M G/ACTUAT / Salmeterol xinafoate 0.014 MG/ACTUAT Dry Powder Inhaler 113-14 mcg/actuation FLUTICASONE PROPION/SALMETEROL 12/07/2020 12:00:00 AM EDT aerosol powdr breath activated 1 INHALE 1 PUFF BY MOUTH TWO TIMES A DAY INHALE 1 PUFF BY MOUTH TWO TIMES A DAY SOLD: 02/18/2021 [facility] 60 ACTUAT Fluticasone propionate 0.113 M G/ACTUAT / Salmeterol xinafoate 0.014 MG/ACTUAT Dry Powder Inhaler 113-14 mcg/actuation FLUTICASONE PROPION/SALMETEROL 12/07/2020 12:00:00 AM EDT aerosol powdr breath activated 1 INHALE 1 PUFF BY MOUTH TWO TIMES A DAY INHALE 1 PUFF BY MOUTH TWO TIMES A DAY SOLD: 01/20/2021 [facility] 60 ACTUAT Fluticasone propionate 0.113 M G/ACTUAT / Salmeterol xinafoate 0.014 MG/ACTUAT Dry Powder Inhaler 113-14 mcg/actuation FLUTICASONE PROPION/SALMETEROL 12/07/2020 12:00:00 AM EDT aerosol powdr breath activated 1 INHALE 1 PUFF BY MOUTH TWO TIMES A DAY INHALE 1 PUFF BY MOUTH TWO TIMES A DAY SOLD: 12/19/2020 [facility] 60 ACTUAT Fluticasone propionate 0.113 M G/ACTUAT / Salmeterol xinafoate 0.014 MG/ACTUAT Dry Powder Inhaler 113-14 mcg/actuation FLUTICASONE PROPION/SALMETEROL 12/07/2020 12:00:00 AM EDT aerosol powdr breath activated 1 INHALE 1 PUFF BY MOUTH TWO TIMES A DAY INHALE 1 PUFF BY MOUTH TWO TIMES A DAY SOLD: 03/19/2021 [facility] [employer] 113/14 113-14 MCG/ACT [employer] 11 08/25 113-14 MCG/ACT 12/06/2020 12:00:00 AM EDT 1.0 {puff} active [employer] 113/14 113-14 MCG[facility]ACT [facility] [employer] 113/14 113-14 MCG/ACT [employer] 11 08/25 113-14 MCG/ACT 12/06/2020 12:00:00 AM EDT 1.0 {puff} active [employer] 113/14 113-14 MCG/ACT eCW1 [facility]) [employer] 113/14 113-14 MCG/ACT [employer] 11 08/25 113-14 MCG/ACT 12/06/2020 12:00:00 AM EDT 1.0 {puff} active [employer] 113/14 113-14 MCG/ACT eCW1 [facility]) [employer] 113/14 113-14 MCG/ACT [employer] 11 08/25 113-14 MCG/ACT 12/06/2020 12:00:00 AM EDT 1.0 {puff} active [employer] 113/14 113-14 MCG/ACT eCW1 [facility]) [employer] 113/14 113-14 MCG/ACT [employer] 11 08/25 113-14 MCG/ACT 12/06/2020 12:00:00 AM EDT 1.0 {puff} active [employer] 113/14 113-14 MCG/ACT eCW1 ([facility]) 60 mg 12/03/2020 12:00:00 AM EDT capsule,delayed release (DR/EC) 30 TAKE ONE CAPSULE BY MOUTH EVERY DAY TAKE ONE CAPSULE BY MOUTH EVERY DAY SOLD: 12/05/2020 [facility] 60 ACTUAT Fluticasone propionate 0.25 MG /ACTUAT / salmeterol 0.05 MG/ACTUAT Dry Powder Inhaler [Advair] Advair Diskus 250-50 MCG/DOSE Advair Diskus 250-50 MCG/DOSE 12/02/2020 12:00:00 AM EDT 1.0 {puff} activ e Advair Diskus 250-50 MCG/DOSE eCW1 ([facility]) duloxetine 60 MG Delayed Release Oral Capsule [Cymbalt a] Cymbalta 60 MG Cymbalta 60 MG 12/02/2020 12:00:00 AM EDT 1.0 {capsule} acti ve Cymbalta 60 MG eCW1 ([facility]) 60 ACTUAT Fluticasone propionate 0.25 MG /ACTUAT / salmeterol 0.05 MG/ACTUAT Dry Powder Inhaler [Advair] Advair Diskus 250-50 MCG/DOSE Advair Diskus 250-50 MCG/DOSE 12/02/2020 12:00:00 AM EDT 1.0 {puff} activ e Advair Diskus 250-50 MCG/DOSE eCW1 ([facility]) duloxetine 60 MG Delayed Release Oral Capsule [Cymbalt a] Cymbalta 60 MG Cymbalta 60 MG 12/02/2020 12:00:00 AM EDT 1.0 {capsule} acti ve Cymbalta 60 MG eCW1 ([facility]) duloxetine 60 MG Delayed Release Oral Capsule [Cymbalt a] Cymbalta 60 MG Cymbalta 60 MG 12/02/2020 12:00:00 AM EDT 1.0 {capsule} acti ve Cymbalta 60 MG eCW1 ([facility]) duloxetine 60 MG Delayed Release Oral Capsule [Cymbalt a] Cymbalta 60 MG Cymbalta 60 MG 12/02/2020 12:00:00 AM EDT 1.0 {capsule} acti ve Cymbalta 60 MG eCW1 ([facility]) 60 ACTUAT Fluticasone propionate 0.25 MG /ACTUAT / salmeterol 0.05 MG/ACTUAT Dry Powder Inhaler [Advair] Advair Diskus 250-50 MCG/DOSE Advair Diskus 250-50 MCG/DOSE 12/02/2020 12:00:00 AM EDT 1.0 {puff} activ e Advair Diskus 250-50 MCG/DOSE eCW1 ([facility]) duloxetine 60 MG Delayed Release Oral Capsule [Cymbalt a] Cymbalta 60 MG Cymbalta 60 MG 12/02/2020 12:00:00 AM EDT 1.0 {capsule} acti ve Cymbalta 60 MG eCW1 ([facility]) 60 ACTUAT Fluticasone propionate 0.25 MG /ACTUAT / salmeterol 0.05 MG/ACTUAT Dry Powder Inhaler [Advair] Advair Diskus 250-50 MCG/DOSE Advair Diskus 250-50 MCG/DOSE 12/02/2020 12:00:00 AM EDT 1.0 {puff} activ e Advair Diskus 250-50 MCG/DOSE eCW1 ([facility]) duloxetine 60 MG Delayed Release Oral Capsule [Cymbalt a] Cymbalta 60 MG Cymbalta 60 MG 12/02/2020 12:00:00 AM EDT 1.0 {capsule} acti ve Cymbalta 60 MG eCW1 ([facility]) duloxetine 60 MG Delayed Release Oral Capsule [Cymbalt a] Cymbalta 60 MG Cymbalta 60 MG 12/02/2020 12:00:00 AM EDT 1.0 {capsule} acti ve Cymbalta 60 MG eCW1 ([facility]) duloxetine 60 MG Delayed Release Oral Capsule [Cymbalt a] Cymbalta 60 MG Cymbalta 60 MG 12/02/2020 12:00:00 AM EDT 1.0 {capsule} acti ve Cymbalta 60 MG eCW1 ([facility]) 60 ACTUAT Fluticasone propionate 0.25 MG /ACTUAT / salmeterol 0.05 MG/ACTUAT Dry Powder Inhaler [Advair] Advair Diskus 250-50 MCG/DOSE Advair Diskus 250-50 MCG/DOSE 12/02/2020 12:00:00 AM EDT 1.0 {puff} activ e Advair Diskus 250-50 MCG/DOSE eCW1 ([facility]) duloxetine 60 MG Delayed Release Oral Capsule [Cymbalt a] Cymbalta 60 MG Cymbalta 60 MG 12/02/2020 12:00:00 AM EDT 1.0 {capsule} acti ve Cymbalta 60 MG eCW1 ([facility]) duloxetine 60 MG Delayed Release Oral Capsule [Cymbalt a] Cymbalta 60 MG Cymbalta 60 MG 12/02/2020 12:00:00 AM EDT 1.0 {capsule} acti ve Cymbalta 60 MG eCW1 ([facility]) duloxetine 60 MG Delayed Release Oral Capsule [Cymbalt a] Cymbalta 60 MG Cymbalta 60 MG 12/02/2020 12:00:00 AM EDT 1.0 {capsule} acti ve Cymbalta 60 MG eCW1 ([facility]) duloxetine 60 MG Delayed Release Oral Capsule [Cymbalt a] Cymbalta 60 MG Cymbalta 60 MG 12/02/2020 12:00:00 AM EDT 1.0 {capsule} acti ve Cymbalta 60 MG eCW1 ([facility]) duloxetine 60 MG Delayed Release Oral Capsule [Cymbalt a] Cymbalta 60 MG Cymbalta 60 MG 12/02/2020 12:00:00 AM EDT 1.0 {capsule} acti ve Cymbalta 60 MG eCW1 ([facility]) 60 ACTUAT Fluticasone propionate 0.25 MG /ACTUAT / salmeterol 0.05 MG/ACTUAT Dry Powder Inhaler [Advair] Advair Diskus 250-50 MCG/DOSE Advair Diskus 250-50 MCG/DOSE 12/02/2020 12:00:00 AM EDT 1.0 {puff} activ e Advair Diskus 250-50 MCG/DOSE eCW1 ([facility]) 60 ACTUAT Fluticasone propionate 0.25 MG /ACTUAT / salmeterol 0.05 MG/ACTUAT Dry Powder Inhaler [Advair] Advair Diskus 250-50 MCG/DOSE Advair Diskus 250-50 MCG/DOSE 12/02/2020 12:00:00 AM EDT 1.0 {puff} activ e Advair Diskus 250-50 MCG/DOSE eCW1 ([facility]) duloxetine 60 MG Delayed Release Oral Capsule [Cymbalt a] Cymbalta 60 MG Cymbalta 60 MG 12/02/2020 12:00:00 AM EDT 1.0 {capsule} acti ve Cymbalta 60 MG eCW1 ([facility]) duloxetine 60 MG Delayed Release Oral Capsule [Cymbalt a] Cymbalta 60 MG Cymbalta 60 MG 12/02/2020 12:00:00 AM EDT 1.0 {capsule} acti ve Cymbalta 60 MG eCW1 ([facility]) duloxetine 60 MG Delayed Release Oral Capsule [Cymbalt a] Cymbalta 60 MG Cymbalta 60 MG 12/02/2020 12:00:00 AM EDT 1.0 {capsule} acti ve Cymbalta 60 MG eCW1 ([facility]) duloxetine 60 MG Delayed Release Oral Capsule [Cymbalt a] Cymbalta 60 MG Cymbalta 60 MG 12/02/2020 12:00:00 AM EDT 1.0 {capsule} acti ve Cymbalta 60 MG eCW1 ([facility]) duloxetine 60 MG Delayed Release Oral Capsule [Cymbalt a] Cymbalta 60 MG Cymbalta 60 MG 12/02/2020 12:00:00 AM EDT 1.0 {capsule} acti ve Cymbalta 60 MG eCW1 ([facility]) duloxetine 60 MG Delayed Release Oral Capsule [Cymbalt a] Cymbalta 60 MG Cymbalta 60 MG 12/02/2020 12:00:00 AM EDT 1.0 {capsule} acti ve Cymbalta 60 MG eCW1 ([facility]) duloxetine 60 MG Delayed Release Oral Capsule [Cymbalt a] Cymbalta 60 MG Cymbalta 60 MG 12/02/2020 12:00:00 AM EDT 1.0 {capsule} acti ve Cymbalta 60 MG eCW1 ([facility]) duloxetine 60 MG Delayed Release Oral Capsule [Cymbalt a] Cymbalta 60 MG Cymbalta 60 MG 12/02/2020 12:00:00 AM EDT 1.0 {capsule} acti ve Cymbalta 60 MG eCW1 ([facility]) duloxetine 60 MG Delayed Release Oral Capsule [Cymbalt a] Cymbalta 60 MG Cymbalta 60 MG 12/02/2020 12:00:00 AM EDT 1.0 {capsule} acti ve Cymbalta 60 MG eCW1 ([facility]) duloxetine 60 MG Delayed Release Oral Capsule [Cymbalt a] Cymbalta 60 MG Cymbalta 60 MG 12/02/2020 12:00:00 AM EDT 1.0 {capsule} acti ve Cymbalta 60 MG eCW1 ([facility]) duloxetine 60 MG Delayed Release Oral Capsule [Cymbalt a] Cymbalta 60 MG Cymbalta 60 MG 12/02/2020 12:00:00 AM EDT 1.0 {capsule} acti ve Cymbalta 60 MG eCW1 ([facility]) duloxetine 60 MG Delayed Release Oral Capsule [Cymbalt a] Cymbalta 60 MG Cymbalta 60 MG 12/02/2020 12:00:00 AM EDT 1.0 {capsule} acti ve Cymbalta 60 MG eCW1 ([facility]) duloxetine 60 MG Delayed Release Oral Capsule [Cymbalt a] Cymbalta 60 MG Cymbalta 60 MG 12/02/2020 12:00:00 AM EDT 1.0 {capsule} acti ve Cymbalta 60 MG eCW1 ([facility]) duloxetine 60 MG Delayed Release Oral Capsule [Cymbalt a] Cymbalta 60 MG Cymbalta 60 MG 12/02/2020 12:00:00 AM EDT 1.0 {capsule} acti ve Cymbalta 60 MG eCW1 ([facility]) duloxetine 60 MG Delayed Release Oral Capsule [Cymbalt a] Cymbalta 60 MG Cymbalta 60 MG 12/02/2020 12:00:00 AM EDT 1.0 {capsule} acti ve Cymbalta 60 MG eCW1 ([facility]) 200 mg 11/25/2020 12:00:00 AM EDT tablet 60 TAKE ONE TABLET BY MOUTH TWICE A DAY TAKE ONE TABLET BY MOUTH TWICE A DAY SOLD: 11/25/2020 [facility] Carbamazepine 200 MG Oral Tablet carBAMazepine 200 MG carBAM azepine 200 MG 11/24/2020 12:00:00 AM EDT 1.0 {tablet} active carBAMazepine 200 MG eCW1 ([facility]) Carbamazepine 200 MG Oral Tablet carBAMazepine 200 MG carBAM azepine 200 MG 11/24/2020 12:00:00 AM EDT 1.0 {tablet} active carBAMazepine 200 MG eCW1 ([facility]) Carbamazepine 200 MG Oral Tablet carBAMazepine 200 MG carBAM azepine 200 MG 11/24/2020 12:00:00 AM EDT 1.0 {tablet} active carBAMazepine 200 MG eCW1 ([facility]) Carbamazepine 200 MG Oral Tablet carBAMazepine 200 MG carBAM azepine 200 MG 11/24/2020 12:00:00 AM EDT 1.0 {tablet} active carBAMazepine 200 MG eCW1 ([facility]) Carbamazepine 200 MG Oral Tablet carBAMazepine 200 MG carBAM azepine 200 MG 11/24/2020 12:00:00 AM EDT 1.0 {tablet} active carBAMazepine 200 MG eCW1 ([facility]) Carbamazepine 200 MG Oral Tablet carBAMazepine 200 MG carBAM azepine 200 MG 11/24/2020 12:00:00 AM EDT 1.0 {tablet} active carBAMazepine 200 MG eCW1 ([facility]) Carbamazepine 200 MG Oral Tablet carBAMazepine 200 MG carBAM azepine 200 MG 11/24/2020 12:00:00 AM EDT 1.0 {tablet} active carBAMazepine 200 MG eCW1 ([facility]) Carbamazepine 200 MG Oral Tablet carBAMazepine 200 MG carBAM azepine 200 MG 11/24/2020 12:00:00 AM EDT 1.0 {tablet} active carBAMazepine 200 MG eCW1 ([facility]) Carbamazepine 200 MG Oral Tablet carBAMazepine 200 MG carBAM azepine 200 MG 11/24/2020 12:00:00 AM EDT 1.0 {tablet} active carBAMazepine 200 MG eCW1 ([facility]) Carbamazepine 200 MG Oral Tablet carBAMazepine 200 MG carBAM azepine 200 MG 11/24/2020 12:00:00 AM EDT 1.0 {tablet} active carBAMazepine 200 MG eCW1 ([facility]) Carbamazepine 200 MG Oral Tablet carBAMazepine 200 MG carBAM azepine 200 MG 11/24/2020 12:00:00 AM EDT 1.0 {tablet} active carBAMazepine 200 MG eCW1 ([facility]) Carbamazepine 200 MG Oral Tablet carBAMazepine 200 MG carBAM azepine 200 MG 11/24/2020 12:00:00 AM EDT 1.0 {tablet} active carBAMazepine 200 MG eCW1 ([facility]) Carbamazepine 200 MG Oral Tablet carBAMazepine 200 MG carBAM azepine 200 MG 11/24/2020 12:00:00 AM EDT 1.0 {tablet} active carBAMazepine 200 MG eCW1 ([facility]) Carbamazepine 200 MG Oral Tablet carBAMazepine 200 MG carBAM azepine 200 MG 11/24/2020 12:00:00 AM EDT 1.0 {tablet} active carBAMazepine 200 MG eCW1 ([facility]) Carbamazepine 200 MG Oral Tablet carBAMazepine 200 MG carBAM azepine 200 MG 11/24/2020 12:00:00 AM EDT 1.0 {tablet} active carBAMazepine 200 MG eCW1 ([facility]) Carbamazepine 200 MG Oral Tablet carBAMazepine 200 MG carBAM azepine 200 MG 11/24/2020 12:00:00 AM EDT 1.0 {tablet} active carBAMazepine 200 MG eCW1 ([facility]) Carbamazepine 200 MG Oral Tablet carBAMazepine 200 MG carBAM azepine 200 MG 11/24/2020 12:00:00 AM EDT 1.0 {tablet} active carBAMazepine 200 MG eCW1 ([facility]) Carbamazepine 200 MG Oral Tablet carBAMazepine 200 MG carBAM azepine 200 MG 11/24/2020 12:00:00 AM EDT 1.0 {tablet} active carBAMazepine 200 MG eCW1 ([facility]) Carbamazepine 200 MG Oral Tablet carBAMazepine 200 MG carBAM azepine 200 MG 11/24/2020 12:00:00 AM EDT 1.0 {tablet} active carBAMazepine 200 MG eCW1 ([facility]) 20 mg 11/23/2020 12:00:00 AM EDT capsule,delayed release (DR/EC) 30 TAKE ONE CAPSULE BY MOUTH EVERY DAY TAKE ONE CAPSULE BY MOUTH EVERY DAY SOLD: 11/23/2020 [facility] 30 mg 11/23/2020 12:00:00 AM EDT capsule,delayed release (DR/EC) 30 TAKE ONE CAPSULE BY MOUTH EVERY DAY TAKE ONE CAPSULE BY MOUTH EVERY DAY SOLD: 11/23/2020 [facility] duloxetine 30 MG Delayed Release Oral Capsule [Cymbalt a] Cymbalta 30 MG Cymbalta 30 MG 11/22/2020 12:00:00 AM EDT 1.0 {capsule} acti ve Cymbalta 30 MG eCW1 ([facility]) duloxetine 30 MG Delayed Release Oral Capsule [Cymbalt a] Cymbalta 30 MG Cymbalta 30 MG 11/22/2020 12:00:00 AM EDT 1.0 {capsule} acti ve Cymbalta 30 MG eCW1 ([facility]) duloxetine 30 MG Delayed Release Oral Capsule [Cymbalt a] Cymbalta 30 MG Cymbalta 30 MG 11/22/2020 12:00:00 AM EDT 1.0 {capsule} acti ve Cymbalta 30 MG eCW1 ([facility]) duloxetine 30 MG Delayed Release Oral Capsule [Cymbalt a] Cymbalta 30 MG Cymbalta 30 MG 11/22/2020 12:00:00 AM EDT 1.0 {capsule} acti ve Cymbalta 30 MG eCW1 ([facility]) duloxetine 30 MG Delayed Release Oral Capsule [Cymbalt a] Cymbalta 30 MG Cymbalta 30 MG 11/22/2020 12:00:00 AM EDT 1.0 {capsule} acti ve Cymbalta 30 MG eCW1 ([facility]) duloxetine 30 MG Delayed Release Oral Capsule [Cymbalt a] Cymbalta 30 MG Cymbalta 30 MG 11/22/2020 12:00:00 AM EDT 1.0 {capsule} acti ve Cymbalta 30 MG eCW1 ([facility]) duloxetine 30 MG Delayed Release Oral Capsule [Cymbalt a] Cymbalta 30 MG Cymbalta 30 MG 11/22/2020 12:00:00 AM EDT 1.0 {capsule} acti ve Cymbalta 30 MG eCW1 ([facility]) duloxetine 30 MG Delayed Release Oral Capsule [Cymbalt a] Cymbalta 30 MG Cymbalta 30 MG 11/22/2020 12:00:00 AM EDT 1.0 {capsule} acti ve Cymbalta 30 MG eCW1 ([facility]) duloxetine 30 MG Delayed Release Oral Capsule [Cymbalt a] Cymbalta 30 MG Cymbalta 30 MG 11/22/2020 12:00:00 AM EDT 1.0 {capsule} acti ve Cymbalta 30 MG eCW1 ([facility]) duloxetine 30 MG Delayed Release Oral Capsule [Cymbalt a] Cymbalta 30 MG Cymbalta 30 MG 11/22/2020 12:00:00 AM EDT 1.0 {capsule} acti ve Cymbalta 30 MG eCW1 ([facility]) duloxetine 30 MG Delayed Release Oral Capsule [Cymbalt a] Cymbalta 30 MG Cymbalta 30 MG 11/22/2020 12:00:00 AM EDT 1.0 {capsule} acti ve Cymbalta 30 MG eCW1 ([facility]) 20 mg 11/19/2020 12:00:00 AM EDT tablet 60 TAKE ONE TABLET BY MOUTH TWICE A DAY MAXIMUM DAILY DOSE = 2 TABLETS TAKE ONE TABLET BY MOUTH TWICE A DAY MAX IMUM DAILY DOSE = 2 TABLETS SOLD: 11/19/2020 [facility] Amphetamine aspartate 5 MG / Amphetamine Sulfate 5 MG / Dextroamphetamine saccharate 5 MG / Dextroamphetamine Sulfate 5 MG Oral Tablet [Adderall] Adderall 20 MG Adderall 20 MG 11/18/2020 12:00:00 AM EDT a ctive Adderall 20 MG eCW1 ([facility]) Amphetamine aspartate 5 MG / Amphetamine Sulfate 5 MG / Dextroamphetamine saccharate 5 MG / Dextroamphetamine Sulfate 5 MG Oral Tablet [Adderall] Adderall 20 MG Adderall 20 MG 11/18/2020 12:00:00 AM EDT a ctive Adderall 20 MG eCW1 ([facility]) Amphetamine aspartate 5 MG / Amphetamine Sulfate 5 MG / Dextroamphetamine saccharate 5 MG / Dextroamphetamine Sulfate 5 MG Oral Tablet [Adderall] Adderall 20 MG Adderall 20 MG 11/18/2020 12:00:00 AM EDT a ctive Adderall 20 MG eCW1 ([facility]) Amphetamine aspartate 5 MG / Amphetamine Sulfate 5 MG / Dextroamphetamine saccharate 5 MG / Dextroamphetamine Sulfate 5 MG Oral Tablet [Adderall] Adderall 20 MG Adderall 20 MG 11/18/2020 12:00:00 AM EDT a ctive Adderall 20 MG eCW1 ([facility]) Amphetamine aspartate 5 MG / Amphetamine Sulfate 5 MG / Dextroamphetamine saccharate 5 MG / Dextroamphetamine Sulfate 5 MG Oral Tablet [Adderall] Adderall 20 MG Adderall 20 MG 11/18/2020 12:00:00 AM EDT a ctive Adderall 20 MG eCW1 ([facility]) Amphetamine aspartate 5 MG / Amphetamine Sulfate 5 MG / Dextroamphetamine saccharate 5 MG / Dextroamphetamine Sulfate 5 MG Oral Tablet [Adderall] Adderall 20 MG Adderall 20 MG 11/18/2020 12:00:00 AM EDT a ctive Adderall 20 MG eCW1 ([facility]) Amphetamine aspartate 5 MG / Amphetamine Sulfate 5 MG / Dextroamphetamine saccharate 5 MG / Dextroamphetamine Sulfate 5 MG Oral Tablet [Adderall] Adderall 20 MG Adderall 20 MG 11/18/2020 12:00:00 AM EDT a ctive Adderall 20 MG eCW1 ([facility]) Amphetamine aspartate 5 MG / Amphetamine Sulfate 5 MG / Dextroamphetamine saccharate 5 MG / Dextroamphetamine Sulfate 5 MG Oral Tablet [Adderall] Adderall 20 MG Adderall 20 MG 11/18/2020 12:00:00 AM EDT a ctive Adderall 20 MG eCW1 ([facility]) Amphetamine aspartate 5 MG / Amphetamine Sulfate 5 MG / Dextroamphetamine saccharate 5 MG / Dextroamphetamine Sulfate 5 MG Oral Tablet [Adderall] Adderall 20 MG Adderall 20 MG 11/18/2020 12:00:00 AM EDT a ctive Adderall 20 MG eCW1 ([facility]) Amphetamine aspartate 5 MG / Amphetamine Sulfate 5 MG / Dextroamphetamine saccharate 5 MG / Dextroamphetamine Sulfate 5 MG Oral Tablet [Adderall] Adderall 20 MG Adderall 20 MG 11/18/2020 12:00:00 AM EDT a ctive Adderall 20 MG eCW1 ([facility]) Amphetamine aspartate 5 MG / Amphetamine Sulfate 5 MG / Dextroamphetamine saccharate 5 MG / Dextroamphetamine Sulfate 5 MG Oral Tablet [Adderall] Adderall 20 MG Adderall 20 MG 11/18/2020 12:00:00 AM EDT a ctive Adderall 20 MG eCW1 ([facility]) 600 mg 11/13/2020 12:00:00 AM EDT tablet 180 TAKE ONE TABLET BY MOUTH FOUR TIMES A DAY (TITRATE DOSE GRADUALLY UP TO 900MG BY TAKING ANOTHER 300MG TABLET FOUR TIMES A DAY NEEDED) TAKE ONE TABLET BY MOUTH FOUR TIMES A DA Y (TITRATE DOSE GRADUALLY UP TO 900MG BY TAKING ANOTHER 300MG TABLET FOUR TIMES A DAY NEEDED) SOLD: 11/13/2020 [facility] gabapentin 300 MG Oral Capsule Gabapentin 11/12/2020 12:00:00 AM EDT ORAL completed [facility] ([facility]) gabapentin 600 MG Oral Tablet Gabapentin 11/12/2020 12:00:00 AM EDT ORAL active [facility] ([facility]) gabapentin 600 MG Oral Tablet Gabapentin 600 MG Gabapentin 6 00 MG 11/01/2020 12:00:00 AM EDT 1.0 {capsule} active G abapentin 600 MG eCW1 ([facility]) gabapentin 600 MG Oral Tablet Gabapentin 600 MG Gabapentin 6 00 MG 11/01/2020 12:00:00 AM EDT 1.0 {capsule} active G abapentin 600 MG eCW1 ([facility]) gabapentin 600 MG Oral Tablet Gabapentin 600 MG Gabapentin 6 00 MG 11/01/2020 12:00:00 AM EDT 1.0 {capsule} active G abapentin 600 MG eCW1 ([facility]) gabapentin 300 MG Oral Capsule Gabapentin 300 MG Gabapentin 300 MG 11/01/2020 12:00:00 AM EDT 1.0 {capsule} active G abapentin 300 MG eCW1 ([facility]) gabapentin 600 MG Oral Tablet Gabapentin 600 MG Gabapentin 6 00 MG 11/01/2020 12:00:00 AM EDT 1.0 {capsule} active G abapentin 600 MG eCW1 ([facility]) gabapentin 600 MG Oral Tablet Gabapentin 600 MG Gabapentin 6 00 MG 11/01/2020 12:00:00 AM EDT 1.0 {capsule} active G abapentin 600 MG eCW1 ([facility]) gabapentin 600 MG Oral Tablet Gabapentin 600 MG Gabapentin 6 00 MG 11/01/2020 12:00:00 AM EDT 1.0 {capsule} active G abapentin 600 MG eCW1 ([facility]) gabapentin 600 MG Oral Tablet Gabapentin 600 MG Gabapentin 6 00 MG 11/01/2020 12:00:00 AM EDT 1.0 {capsule} active G abapentin 600 MG eCW1 ([facility]) gabapentin 300 MG Oral Capsule Gabapentin 300 MG Gabapentin 300 MG 11/01/2020 12:00:00 AM EDT 1.0 {capsule} active G abapentin 300 MG eCW1 ([facility]) gabapentin 600 MG Oral Tablet Gabapentin 600 MG Gabapentin 6 00 MG 11/01/2020 12:00:00 AM EDT 1.0 {capsule} active G abapentin 600 MG eCW1 ([facility]) gabapentin 300 MG Oral Capsule Gabapentin 300 MG Gabapentin 300 MG 11/01/2020 12:00:00 AM EDT 1.0 {capsule} active G abapentin 300 MG eCW1 ([facility]) gabapentin 600 MG Oral Tablet Gabapentin 600 MG Gabapentin 6 00 MG 11/01/2020 12:00:00 AM EDT 1.0 {capsule} active G abapentin 600 MG eCW1 ([facility]) gabapentin 600 MG Oral Tablet Gabapentin 600 MG Gabapentin 6 00 MG 11/01/2020 12:00:00 AM EDT 1.0 {capsule} active G abapentin 600 MG eCW1 ([facility]) gabapentin 600 MG Oral Tablet Gabapentin 600 MG Gabapentin 6 00 MG 11/01/2020 12:00:00 AM EDT 1.0 {capsule} active G abapentin 600 MG eCW1 ([facility]) gabapentin 600 MG Oral Tablet Gabapentin 600 MG Gabapentin 6 00 MG 11/01/2020 12:00:00 AM EDT 1.0 {capsule} active G abapentin 600 MG eCW1 ([facility]) gabapentin 300 MG Oral Capsule Gabapentin 300 MG Gabapentin 300 MG 11/01/2020 12:00:00 AM EDT 1.0 {capsule} active G abapentin 300 MG eCW1 ([facility]) gabapentin 300 MG Oral Capsule Gabapentin 300 MG Gabapentin 300 MG 11/01/2020 12:00:00 AM EDT 1.0 {capsule} active G abapentin 300 MG eCW1 ([facility]) gabapentin 600 MG Oral Tablet Gabapentin 600 MG Gabapentin 6 00 MG 11/01/2020 12:00:00 AM EDT 1.0 {capsule} active G abapentin 600 MG eCW1 ([facility]) gabapentin 600 MG Oral Tablet Gabapentin 600 MG Gabapentin 6 00 MG 11/01/2020 12:00:00 AM EDT 1.0 {capsule} active G abapentin 600 MG eCW1 ([facility]) gabapentin 600 MG Oral Tablet Gabapentin 600 MG Gabapentin 6 00 MG 11/01/2020 12:00:00 AM EDT 1.0 {capsule} active G abapentin 600 MG eCW1 ([facility]) gabapentin 600 MG Oral Tablet Gabapentin 600 MG Gabapentin 6 00 MG 11/01/2020 12:00:00 AM EDT 1.0 {capsule} active G abapentin 600 MG eCW1 ([facility]) gabapentin 600 MG Oral Tablet Gabapentin 600 MG Gabapentin 6 00 MG 11/01/2020 12:00:00 AM EDT 1.0 {capsule} active G abapentin 600 MG eCW1 ([facility]) gabapentin 600 MG Oral Tablet Gabapentin 600 MG Gabapentin 6 00 MG 11/01/2020 12:00:00 AM EDT 1.0 {capsule} active G abapentin 600 MG eCW1 ([facility]) gabapentin 600 MG Oral Tablet Gabapentin 600 MG Gabapentin 6 00 MG 11/01/2020 12:00:00 AM EDT 1.0 {capsule} active G abapentin 600 MG eCW1 ([facility]) gabapentin 600 MG Oral Tablet Gabapentin 600 MG Gabapentin 6 00 MG 11/01/2020 12:00:00 AM EDT 1.0 {capsule} active G abapentin 600 MG eCW1 ([facility]) gabapentin 300 MG Oral Capsule Gabapentin 300 MG Gabapentin 300 MG 11/01/2020 12:00:00 AM EDT 1.0 {capsule} active G abapentin 300 MG eCW1 ([facility]) gabapentin 600 MG Oral Tablet Gabapentin 600 MG Gabapentin 6 00 MG 11/01/2020 12:00:00 AM EDT 1.0 {capsule} active G abapentin 600 MG eCW1 ([facility]) gabapentin 600 MG Oral Tablet Gabapentin 600 MG Gabapentin 6 00 MG 11/01/2020 12:00:00 AM EDT 1.0 {capsule} active G abapentin 600 MG eCW1 ([facility]) gabapentin 600 MG Oral Tablet Gabapentin 600 MG Gabapentin 6 00 MG 11/01/2020 12:00:00 AM EDT 1.0 {capsule} active G abapentin 600 MG eCW1 ([facility]) gabapentin 600 MG Oral Tablet Gabapentin 600 MG Gabapentin 6 00 MG 11/01/2020 12:00:00 AM EDT 1.0 {capsule} active G abapentin 600 MG eCW1 ([facility]) gabapentin 300 MG Oral Capsule Gabapentin 300 MG Gabapentin 300 MG 11/01/2020 12:00:00 AM EDT 1.0 {capsule} active G abapentin 300 MG eCW1 ([facility]) gabapentin 600 MG Oral Tablet Gabapentin 600 MG Gabapentin 6 00 MG 11/01/2020 12:00:00 AM EDT 1.0 {capsule} active G abapentin 600 MG eCW1 ([facility]) gabapentin 600 MG Oral Tablet Gabapentin 600 MG Gabapentin 6 00 MG 11/01/2020 12:00:00 AM EDT 1.0 {capsule} active G abapentin 600 MG eCW1 ([facility]) gabapentin 300 MG Oral Capsule Gabapentin 300 MG Gabapentin 300 MG 11/01/2020 12:00:00 AM EDT 1.0 {capsule} active G abapentin 300 MG eCW1 ([facility]) gabapentin 300 MG Oral Capsule Gabapentin 300 MG Gabapentin 300 MG 11/01/2020 12:00:00 AM EDT 1.0 {capsule} active G abapentin 300 MG eCW1 ([facility]) 300 mg 11/01/2020 12:00:00 AM EDT capsule 30 TAKE ONE CAPSULE BY MOUTH EVERY DAY TAKE ONE CAPSULE BY MOUTH EVERY DAY SOLD: 11/01/2020 [facility] gabapentin 600 MG Oral Tablet Gabapentin 600 MG Gabapentin 6 00 MG 11/01/2020 12:00:00 AM EDT 1.0 {capsule} active G abapentin 600 MG eCW1 ([facility]) gabapentin 600 MG Oral Tablet Gabapentin 600 MG Gabapentin 6 00 MG 11/01/2020 12:00:00 AM EDT 1.0 {capsule} active G abapentin 600 MG eCW1 ([facility]) 4 mg 10/27/2020 12:00:00 AM EDT tablet 30 TAKE ONE TABLET BY MOUTH EVERY 8 HOURS NEEDED FOR NAUSEA AND VOMITING TAKE ONE TABLET BY MOUTH EVERY 8 HOURS NEEDED FOR NAUSEA AND VOMITING SOLD: 10/30/2020 [facility] 20 mg 10/19/2020 12:00:00 AM EDT tablet 60 TAKE ONE TABLET BY MOUTH TWICE A DAY * MAXIMUM DAILY DOSE = 2 TAKE ONE TABLET BY MOUTH TWICE A DAY * M AXIMUM DAILY DOSE = 2 SOLD: 10/20/2020 [facility] Amphetamine aspartate 5 MG / Amphetamine Sulfate 5 MG / Dextroamphetamine saccharate 5 MG / Dextroamphetamine Sulfate 5 MG Oral Tablet [Adderall] Adderall 20 MG Adderall 20 MG 10/18/2020 12:00:00 AM EDT a ctive Adderall 20 MG eCW1 ([facility]) Amphetamine aspartate 5 MG / Amphetamine Sulfate 5 MG / Dextroamphetamine saccharate 5 MG / Dextroamphetamine Sulfate 5 MG Oral Tablet [Adderall] Adderall 20 MG Adderall 20 MG 10/18/2020 12:00:00 AM EDT a ctive Adderall 20 MG eCW1 ([facility]) Amphetamine aspartate 5 MG / Amphetamine Sulfate 5 MG / Dextroamphetamine saccharate 5 MG / Dextroamphetamine Sulfate 5 MG Oral Tablet [Adderall] Adderall 20 MG Adderall 20 MG 10/18/2020 12:00:00 AM EDT a ctive Adderall 20 MG eCW1 ([facility]) Amphetamine aspartate 5 MG / Amphetamine Sulfate 5 MG / Dextroamphetamine saccharate 5 MG / Dextroamphetamine Sulfate 5 MG Oral Tablet [Adderall] Adderall 20 MG Adderall 20 MG 10/18/2020 12:00:00 AM EDT a ctive Adderall 20 MG eCW1 ([facility]) Amphetamine aspartate 5 MG / Amphetamine Sulfate 5 MG / Dextroamphetamine saccharate 5 MG / Dextroamphetamine Sulfate 5 MG Oral Tablet [Adderall] Adderall 20 MG Adderall 20 MG 10/18/2020 12:00:00 AM EDT a ctive Adderall 20 MG eCW1 ([facility]) 25 mg 10/17/2020 12:00:00 AM EDT tablet 15 TAKE ONE-HALF TABLET BY MOUTH EVERY DAY WITH FOOD TAKE ONE-HALF TABLET BY MOUTH EVERY DAY WITH FOOD SOLD : 10/20/2020 [facility] 25 mg 10/17/2020 12:00:00 AM EDT tablet 15 TAKE ONE-HALF TABLET BY MOUTH EVERY DAY WITH FOOD TAKE ONE-HALF TABLET BY MOUTH EVERY DAY WITH FOOD SOLD : 11/19/2020 [facility] 500 mg 10/17/2020 12:00:00 AM EDT tablet 60 TAKE ONE TABLET BY MOUTH TWICE A DAY WITH FOOD TAKE ONE TABLET BY MOUTH TWICE A DAY WITH FOOD SOLD: 021 [facility] 25 mg 10/17/2020 12:00:00 AM EDT tablet 15 TAKE ONE-HALF TABLET BY MOUTH EVERY DAY WITH FOOD TAKE ONE-HALF TABLET BY MOUTH EVERY DAY WITH FOOD SOLD : 12/19/2020 [facility] 500 mg 10/17/2020 12:00:00 AM EDT tablet 60 TAKE ONE TABLET BY MOUTH TWICE A DAY WITH FOOD TAKE ONE TABLET BY MOUTH TWICE A DAY WITH FOOD SOLD: 021 [facility] 500 mg 10/17/2020 12:00:00 AM EDT tablet 60 TAKE ONE TABLET BY MOUTH TWICE A DAY WITH FOOD TAKE ONE TABLET BY MOUTH TWICE A DAY WITH FOOD SOLD: 021 [facility] 1 % 10/14/2020 12:00:00 AM EDT ointment 28 APPLY TO AFFECTED AREA(S) TWO TIMES A DAY APPLY TO AFFECTED AREA(S) TWO TIMES A DAY SOLD: 10/14/2020 [facility] 2.5 % 10/13/2020 12:00:00 AM EDT cream with perineal ruth ann licator 28 APPLY TO AFFECTED AREA THREE TIMES A DAY APPLY TO AFFECTED AREA THREE TIMES A DAY SOLD: 10/13/2020 [facility] hydrocortisone acetate 25 MG Rectal Suppository [Anuso l HC] An[facility]-HC 25 MG [facility] 25 MG 10/11/2020 12:00:00 AM EDT 1.0 {suppository} active Anusol-HC 25 MG eCW1 ([facility] hydrocortisone acetate 25 MG Rectal Suppository [An[facility] HC] An[facility]ol-HC 25 MG [facility] 25 MG 10/11/2020 12:00:00 AM EDT 1.0 {suppository} active An[facility]ol-HC 25 MG eCW1 ([facility]) hydrocortisone acetate 25 MG Rectal Suppository [[facility] HC] An[facility]ol-HC 25 MG [facility] 25 MG 10/11/2020 12:00:00 AM EDT 1.0 {suppository} active An[facility]ol-HC 25 MG eCW1 ([facility]) hydrocortisone acetate 25 MG Rectal Suppository [[facility] HC] An[facility]ol-HC 25 MG [facility] 25 MG 10/11/2020 12:00:00 AM EDT 1.0 {suppository} active Anusol-HC 25 MG eCW1 ([facility]) hydrocortisone acetate 25 MG Rectal Suppository [[facility] HC] [facility] 25 MG [facility] 25 MG 10/11/2020 12:00:00 AM EDT 1.0 {suppository} active An[facility]ol-HC 25 MG eCW1 ([facility]) hydrocortisone acetate 25 MG Rectal Suppository [[facility] HC] [facility] 25 MG [facility] 25 MG 10/11/2020 12:00:00 AM EDT 1.0 {suppository} active Anusol-HC 25 MG eCW1 ([facility]) hydrocortisone acetate 25 MG Rectal Suppository [[facility] HC] [facility]HC 25 MG [facility] 25 MG 10/11/2020 12:00:00 AM EDT 1.0 {suppository} active An[facility]ol-HC 25 MG eCW1 ([facility]) hydrocortisone acetate 25 MG Rectal Suppository [[facility] HC] [facility] 25 MG [facility] 25 MG 10/11/2020 12:00:00 AM EDT 1.0 {suppository} active Anusol-HC 25 MG eCW1 ([facility]) hydrocortisone acetate 25 MG Rectal Suppository [[facility] HC] An[facility]ol-HC 25 MG [facility] 25 MG 10/11/2020 12:00:00 AM EDT 1.0 {suppository} active Anusol-HC 25 MG eCW1 ([facility]) hydrocortisone acetate 25 MG Rectal Suppository [[facility] HC] [facility] 25 MG [facility] 25 MG 10/11/2020 12:00:00 AM EDT 1.0 {suppository} active An[facility]ol-HC 25 MG eCW1 ([facility]) hydrocortisone acetate 25 MG Rectal Suppository [An[facility] HC] [facility] 25 MG [facility] 25 MG 10/11/2020 12:00:00 AM EDT 1.0 {suppository} active An[facility]ol-HC 25 MG eCW1 ([facility]) hydrocortisone acetate 25 MG Rectal Suppository [[facility] HC] [facility] 25 MG [facility] 25 MG 10/11/2020 12:00:00 AM EDT 1.0 {suppository} active An[facility]ol-HC 25 MG eCW1 ([facility]) hydrocortisone acetate 25 MG Rectal Suppository [[facility] HC] [facility] 25 MG [facility] 25 MG 10/11/2020 12:00:00 AM EDT 1.0 {suppository} active Anusol-HC 25 MG eCW1 ([facility]) hydrocortisone acetate 25 MG Rectal Suppository [[facility] HC] [facility] 25 MG [facility] 25 MG 10/11/2020 12:00:00 AM EDT 1.0 {suppository} active Anusol-HC 25 MG eCW1 ([facility]) hydrocortisone acetate 25 MG Rectal Suppository [[facility]] [facility] 25 MG [facility] 25 MG 10/11/2020 12:00:00 AM EDT 1.0 {suppository} active An[facility]ol-HC 25 MG eCW1 ([facility]) hydrocortisone acetate 25 MG Rectal Suppository [[facility]] [facility] 25 MG [facility] 25 MG 10/11/2020 12:00:00 AM EDT 1.0 {suppository} active An[facility]ol-HC 25 MG eCW1 ([facility]) hydrocortisone acetate 25 MG Rectal Suppository [[facility] HC] [facility] 25 MG [facility] 25 MG 10/11/2020 12:00:00 AM EDT 1.0 {suppository} active An[facility]ol-HC 25 MG eCW1 ([facility]) hydrocortisone acetate 25 MG Rectal Suppository [[facility]] [facility] 25 MG [facility] 25 MG 10/11/2020 12:00:00 AM EDT 1.0 {suppository} active An[facility]ol-HC 25 MG eCW1 ([facility]) hydrocortisone acetate 25 MG Rectal Suppository [[facility]] [facility] 25 MG [facility] 25 MG 10/11/2020 12:00:00 AM EDT 1.0 {suppository} active An[facility]ol-HC 25 MG eCW1 ([facility]) hydrocortisone acetate 25 MG Rectal Suppository [[facility]] [facility] 25 MG [facility] 25 MG 10/11/2020 12:00:00 AM EDT 1.0 {suppository} active An[facility]ol-HC 25 MG eCW1 ([facility]) hydrocortisone acetate 25 MG Rectal Suppository [[facility]] [facility] 25 MG [facility] 25 MG 10/11/2020 12:00:00 AM EDT 1.0 {suppository} active An[facility]ol-HC 25 MG eCW1 ([facility]) 20 mg 10/06/2020 12:00:00 AM EDT capsule 30 TAKE ONE CAPSULE BY MOUTH EVERY MORNING TAKE ONE CAPSULE BY MOUTH EVERY MORNING SOLD: 02/18/2021 [facility] 20 mg 10/06/2020 12:00:00 AM EDT capsule 13 TAKE ONE CAPSULE BY MOUTH EVERY MORNING TAKE ONE CAPSULE BY MOUTH EVERY MORNING SOLD: 10/07/2020 [facility] 20 mg 10/06/2020 12:00:00 AM EDT capsule 30 TAKE ONE CAPSULE BY MOUTH EVERY MORNING TAKE ONE CAPSULE BY MOUTH EVERY MORNING SOLD: 01/20/2021 [facility] 20 mg 10/06/2020 12:00:00 AM EDT capsule 20 TAKE ONE CAPSULE BY MOUTH EVERY MORNING TAKE ONE CAPSULE BY MOUTH EVERY MORNING SOLD: 11/01/2020 [facility] 20 mg 10/06/2020 12:00:00 AM EDT capsule 30 TAKE ONE CAPSULE BY MOUTH EVERY MORNING TAKE ONE CAPSULE BY MOUTH EVERY MORNING SOLD: 12/19/2020 [facility] 20 mg 10/06/2020 12:00:00 AM EDT capsule 30 TAKE ONE CAPSULE BY MOUTH EVERY MORNING TAKE ONE CAPSULE BY MOUTH EVERY MORNING SOLD: 11/19/2020 [facility] Amphetamine aspartate 5 MG / Amphetamine Sulfate 5 MG / Dextroamphetamine saccharate 5 MG / Dextroamphetamine Sulfate 5 MG Oral Tablet [Adderall] Adderall 20 MG Adderall 20 MG 09/20/2020 12:00:00 AM EDT a ctive Adderall 20 MG eCW1 ([facility]) Amphetamine aspartate 5 MG / Amphetamine Sulfate 5 MG / Dextroamphetamine saccharate 5 MG / Dextroamphetamine Sulfate 5 MG Oral Tablet [Adderall] Adderall 20 MG Adderall 20 MG 09/20/2020 12:00:00 AM EDT a ctive Adderall 20 MG eCW1 ([facility]) Amphetamine aspartate 5 MG / Amphetamine Sulfate 5 MG / Dextroamphetamine saccharate 5 MG / Dextroamphetamine Sulfate 5 MG Oral Tablet [Adderall] Adderall 20 MG Adderall 20 MG 09/20/2020 12:00:00 AM EDT a ctive Adderall 20 MG eCW1 ([facility]) Amphetamine aspartate 5 MG / Amphetamine Sulfate 5 MG / Dextroamphetamine saccharate 5 MG / Dextroamphetamine Sulfate 5 MG Oral Tablet [Adderall] Adderall 20 MG Adderall 20 MG 09/20/2020 12:00:00 AM EDT a ctive Adderall 20 MG eCW1 ([facility]) Amphetamine aspartate 5 MG / Amphetamine Sulfate 5 MG / Dextroamphetamine saccharate 5 MG / Dextroamphetamine Sulfate 5 MG Oral Tablet 20 mg DEXTROAMPHETAMINE SULF-SACCHARATE/AMPHETAMINE SULF-ASPARTATE 09/20/2020 12:00:00 AM EDT tablet 29 TAKE ONE TABLET BY MOUTH TWICE A DAY, MAXIMUM DAILY DOSE = 2 TABLETS TAKE ONE TABLET BY MOUTH TWICE A DAY, MAXIMUM DAILY DO SE = 2 TABLETS SOLD: 09/20/2020 [facility] 20 mg 09/20/2020 12:00:00 AM EDT tablet 31 TAKE ONE TABLET BY MOUTH TWICE A DAY, MAXIMUM DAILY DOSE = 2 TABLETS TAKE ONE TABLET BY MOUTH TWICE A DAY, MAXIMUM DAILY DOSE = 2 TABLETS SOLD: 09/20/2020 [facility] 50-325-40 mg 09/10/2020 12:00:00 AM EDT tablet 20 TAKE ONE TABLET BY MOUTH EVERY 4 HOURS NEEDED FOR HEADACHE MAXIMUM DAILY DOSE =6 TABLETS TAKE ONE TABLET BY MOUTH EVERY 4 HOURS NEEDED FOR HEADACHE MAXIMUM DAILY DOSE =6 TABLETS SOLD: 09/10/2020 [facility] 120 mg/mL 09/03/2020 12:00:00 AM EDT pen injector 1 INJECT 1 PEN UNDER THE SKIN ONCE A MONTH FOR MIGRAINE PREVENTION INJECT 1 PEN UNDER THE SKIN ONCE A MONTH FOR MIGRAINE PREVENTION SOLD: 09/10/2020 [facility] 120 mg/mL 09/03/2020 12:00:00 AM EDT pen injector 1 INJECT 1 PEN UNDER THE SKIN ONCE A MONTH FOR MIGRAINE PREVENTION INJECT 1 PEN UNDER THE SKIN ONCE A MONTH FOR MIGRAINE PREVENTION SOLD: 03/19/2021 [facility] 120 mg/mL 09/03/2020 12:00:00 AM EDT pen injector 1 INJECT 1 PEN UNDER THE SKIN ONCE A MONTH FOR MIGRAINE PREVENTION INJECT 1 PEN UNDER THE SKIN ONCE A MONTH FOR MIGRAINE PREVENTION SOLD: 01/20/2021 [facility] 120 mg/mL 09/03/2020 12:00:00 AM EDT pen injector 1 INJECT 1 PEN UNDER THE SKIN ONCE A MONTH FOR MIGRAINE PREVENTION INJECT 1 PEN UNDER THE SKIN ONCE A MONTH FOR MIGRAINE PREVENTION SOLD: 02/18/2021 [facility] 120 mg/mL 09/03/2020 12:00:00 AM EDT pen injector 1 INJECT 1 PEN UNDER THE SKIN ONCE A MONTH FOR MIGRAINE PREVENTION INJECT 1 PEN UNDER THE SKIN ONCE A MONTH FOR MIGRAINE PREVENTION SOLD: 10/20/2020 [facility] 120 mg/mL 09/03/2020 12:00:00 AM EDT pen injector 1 INJECT 1 PEN UNDER THE SKIN ONCE A MONTH FOR MIGRAINE PREVENTION INJECT 1 PEN UNDER THE SKIN ONCE A MONTH FOR MIGRAINE PREVENTION SOLD: 11/19/2020 [facility] 120 mg/mL 09/03/2020 12:00:00 AM EDT pen injector 1 INJECT 1 PEN UNDER THE SKIN ONCE A MONTH FOR MIGRAINE PREVENTION INJECT 1 PEN UNDER THE SKIN ONCE A MONTH FOR MIGRAINE PREVENTION SOLD: 12/19/2020 [facility] 1-20 mg-mcg 09/03/2020 12:00:00 AM EDT tablet 21 TAKE ONE TABLET BY MOUTH EVERY DAY TAKE ONE TABLET BY MOUTH EVERY DAY SOLD: 09/10/2020 [facility] Norethindrone Acet-Ethinyl Est 1-20 MG-MCG Norethindro ne Acet-Ethinyl Est 1-20 MG-MCG 09/02/2020 12:00:00 AM EDT 1.0 {tablet} activ e Norethindrone Acet-Ethinyl Est 1-20 MG-MCG eCW1 ([facility]) Norethindrone Acet-Ethinyl Est 1-20 MG-MCG Norethindro ne Acet-Ethinyl Est 1-20 MG-MCG 09/02/2020 12:00:00 AM EDT 1.0 {tablet} activ e Norethindrone Acet-Ethinyl Est 1-20 MG-MCG eCW1 ([facility]) Norethindrone Acet-Ethinyl Est 1-20 MG-MCG Norethindro ne Acet-Ethinyl Est 1-20 MG-MCG 09/02/2020 12:00:00 AM EDT 1.0 {tablet} activ e Norethindrone Acet-Ethinyl Est 1-20 MG-MCG eCW1 ([facility]) Norethindrone Acet-Ethinyl Est 1-20 MG-MCG Norethindro ne Acet-Ethinyl Est 1-20 MG-MCG 09/02/2020 12:00:00 AM EDT 1.0 {tablet} activ e Norethindrone Acet-Ethinyl Est 1-20 MG-MCG eCW1 ([facility]) Norethindrone Acet-Ethinyl Est 1-20 MG-MCG Norethindro ne Acet-Ethinyl Est 1-20 MG-MCG 09/02/2020 12:00:00 AM EDT 1.0 {tablet} activ e Norethindrone Acet-Ethinyl Est 1-20 MG-MCG eCW1 ([facility]) Norethindrone Acet-Ethinyl Est 1-20 MG-MCG Norethindro ne Acet-Ethinyl Est 1-20 MG-MCG 09/02/2020 12:00:00 AM EDT 1.0 {tablet} activ e Norethindrone Acet-Ethinyl Est 1-20 MG-MCG eCW1 ([facility]) Norethindrone Acet-Ethinyl Est 1-20 MG-MCG Norethindro ne Acet-Ethinyl Est 1-20 MG-MCG 09/02/2020 12:00:00 AM EDT 1.0 {tablet} activ e Norethindrone Acet-Ethinyl Est 1-20 MG-MCG eCW1 ([facility]) Norethindrone Acet-Ethinyl Est 1-20 MG-MCG Norethindro ne Acet-Ethinyl Est 1-20 MG-MCG 09/02/2020 12:00:00 AM EDT 1.0 {tablet} activ e Norethindrone Acet-Ethinyl Est 1-20 MG-MCG eCW1 ([facility]) Norethindrone Acet-Ethinyl Est 1-20 MG-MCG Norethindro ne Acet-Ethinyl Est 1-20 MG-MCG 09/02/2020 12:00:00 AM EDT 1.0 {tablet} activ e Norethindrone Acet-Ethinyl Est 1-20 MG-MCG eCW1 ([facility]) Norethindrone Acet-Ethinyl Est 1-20 MG-MCG Norethindro ne Acet-Ethinyl Est 1-20 MG-MCG 09/02/2020 12:00:00 AM EDT 1.0 {tablet} activ e Norethindrone Acet-Ethinyl Est 1-20 MG-MCG eCW1 ([facility]) Norethindrone Acet-Ethinyl Est 1-20 MG-MCG Norethindro ne Acet-Ethinyl Est 1-20 MG-MCG 09/02/2020 12:00:00 AM EDT 1.0 {tablet} activ e Norethindrone Acet-Ethinyl Est 1-20 MG-MCG eCW1 ([facility]) Norethindrone Acet-Ethinyl Est 1-20 MG-MCG Norethindro ne Acet-Ethinyl Est 1-20 MG-MCG 09/02/2020 12:00:00 AM EDT 1.0 {tablet} activ e Norethindrone Acet-Ethinyl Est 1-20 MG-MCG eCW1 ([facility]) Norethindrone Acet-Ethinyl Est 1-20 MG-MCG Norethindro ne Acet-Ethinyl Est 1-20 MG-MCG 09/02/2020 12:00:00 AM EDT 1.0 {tablet} activ e Norethindrone Acet-Ethinyl Est 1-20 MG-MCG eCW1 ([facility]) Norethindrone Acet-Ethinyl Est 1-20 MG-MCG Norethindro ne Acet-Ethinyl Est 1-20 MG-MCG 09/02/2020 12:00:00 AM EDT 1.0 {tablet} activ e Norethindrone Acet-Ethinyl Est 1-20 MG-MCG eCW1 ([facility]) Norethindrone Acet-Ethinyl Est 1-20 MG-MCG Norethindro ne Acet-Ethinyl Est 1-20 MG-MCG 09/02/2020 12:00:00 AM EDT 1.0 {tablet} activ e Norethindrone Acet-Ethinyl Est 1-20 MG-MCG eCW1 ([facility]) Norethindrone Acet-Ethinyl Est 1-20 MG-MCG Norethindro ne Acet-Ethinyl Est 1-20 MG-MCG 09/02/2020 12:00:00 AM EDT 1.0 {tablet} activ e Norethindrone Acet-Ethinyl Est 1-20 MG-MCG eCW1 ([facility]) Norethindrone Acet-Ethinyl Est 1-20 MG-MCG Norethindro ne Acet-Ethinyl Est 1-20 MG-MCG 09/02/2020 12:00:00 AM EDT 1.0 {tablet} activ e Norethindrone Acet-Ethinyl Est 1-20 MG-MCG eCW1 ([facility]) Norethindrone Acet-Ethinyl Est 1-20 MG-MCG Norethindro ne Acet-Ethinyl Est 1-20 MG-MCG 09/02/2020 12:00:00 AM EDT 1.0 {tablet} activ e Norethindrone Acet-Ethinyl Est 1-20 MG-MCG eCW1 ([facility]) Norethindrone Acet-Ethinyl Est 1-20 MG-MCG Norethindro ne Acet-Ethinyl Est 1-20 MG-MCG 09/02/2020 12:00:00 AM EDT 1.0 {tablet} activ e Norethindrone Acet-Ethinyl Est 1-20 MG-MCG eCW1 ([facility]) Norethindrone Acet-Ethinyl Est 1-20 MG-MCG Norethindro ne Acet-Ethinyl Est 1-20 MG-MCG 09/02/2020 12:00:00 AM EDT 1.0 {tablet} activ e Norethindrone Acet-Ethinyl Est 1-20 MG-MCG eCW1 ([facility]) Norethindrone Acet-Ethinyl Est 1-20 MG-MCG Norethindro ne Acet-Ethinyl Est 1-20 MG-MCG 09/02/2020 12:00:00 AM EDT 1.0 {tablet} activ e Norethindrone Acet-Ethinyl Est 1-20 MG-MCG eCW1 ([facility]) Norethindrone Acet-Ethinyl Est 1-20 MG-MCG Norethindro ne Acet-Ethinyl Est 1-20 MG-MCG 09/02/2020 12:00:00 AM EDT 1.0 {tablet} activ e Norethindrone Acet-Ethinyl Est 1-20 MG-MCG eCW1 ([facility]) Norethindrone Acet-Ethinyl Est 1-20 MG-MCG Norethindro ne Acet-Ethinyl Est 1-20 MG-MCG 09/02/2020 12:00:00 AM EDT 1.0 {tablet} activ e Norethindrone Acet-Ethinyl Est 1-20 MG-MCG eCW1 ([facility]) Norethindrone Acet-Ethinyl Est 1-20 MG-MCG Norethindro ne Acet-Ethinyl Est 1-20 MG-MCG 09/02/2020 12:00:00 AM EDT 1.0 {tablet} activ e Norethindrone Acet-Ethinyl Est 1-20 MG-MCG eCW1 ([facility]) Norethindrone Acet-Ethinyl Est 1-20 MG-MCG Norethindro ne Acet-Ethinyl Est 1-20 MG-MCG 09/02/2020 12:00:00 AM EDT 1.0 {tablet} activ e Norethindrone Acet-Ethinyl Est 1-20 MG-MCG eCW1 ([facility]) Aimovig Aimovig 08/26/2020 12:00:00 AM EDT SUBCUTANEOUS completed [facility] ([facility]) Emgality Emgality 08/26/2020 12:00:00 AM EDT SUBCUTANEOUS active [facility] ([facility]) 20 mg 08/20/2020 12:00:00 AM EST tablet 60 TAKE ONE TABLET BY MOUTH TWO TIMES A DAY MAXIMUM DAILY DOSE = 2 TABLETS TAKE ONE TABLET BY MOUTH TWO TIMES A DAY MAXIMUM DAILY DOSE = 2 TABLETS SOLD: 08/21/2020 [facility] 20 mg 07/22/2020 12:00:00 AM EST tablet 60 TAKE ONE TABLET BY MOUTH TWICE A DAY MAXIMUM DAILY DOSE = 2 TAKE ONE TABLET BY MOUTH TWICE A DAY MAX IMUM DAILY DOSE = 2 SOLD: 07/22/2020 [facility] Amphetamine aspartate 5 MG / Amphetamine Sulfate 5 MG / Dextroamphetamine saccharate 5 MG / Dextroamphetamine Sulfate 5 MG Oral Tablet [Adderall] Adderall 20 MG Adderall 20 MG 07/19/2020 12:00:00 AM EST a ctive Adderall 20 MG eCW1 ([facility]) Amphetamine aspartate 5 MG / Amphetamine Sulfate 5 MG / Dextroamphetamine saccharate 5 MG / Dextroamphetamine Sulfate 5 MG Oral Tablet [Adderall] Adderall 20 MG Adderall 20 MG 07/19/2020 12:00:00 AM EST a ctive Adderall 20 MG eCW1 ([facility]) Amphetamine aspartate 5 MG / Amphetamine Sulfate 5 MG / Dextroamphetamine saccharate 5 MG / Dextroamphetamine Sulfate 5 MG Oral Tablet [Adderall] Adderall 20 MG Adderall 20 MG 07/19/2020 12:00:00 AM EST a ctive Adderall 20 MG eCW1 ([facility]) Amphetamine aspartate 5 MG / Amphetamine Sulfate 5 MG / Dextroamphetamine saccharate 5 MG / Dextroamphetamine Sulfate 5 MG Oral Tablet [Adderall] Adderall 20 MG Adderall 20 MG 07/19/2020 12:00:00 AM EST a ctive Adderall 20 MG eCW1 ([facility]) Amphetamine aspartate 5 MG / Amphetamine Sulfate 5 MG / Dextroamphetamine saccharate 5 MG / Dextroamphetamine Sulfate 5 MG Oral Tablet [Adderall] Adderall 20 MG Adderall 20 MG 07/19/2020 12:00:00 AM EST a ctive Adderall 20 MG eCW1 ([facility]) Amphetamine aspartate 5 MG / Amphetamine Sulfate 5 MG / Dextroamphetamine saccharate 5 MG / Dextroamphetamine Sulfate 5 MG Oral Tablet [Adderall] Adderall 20 MG Adderall 20 MG 07/19/2020 12:00:00 AM EST a ctive Adderall 20 MG eCW1 ([facility]) Amphetamine aspartate 5 MG / Amphetamine Sulfate 5 MG / Dextroamphetamine saccharate 5 MG / Dextroamphetamine Sulfate 5 MG Oral Tablet [Adderall] Adderall 20 MG Adderall 20 MG 07/19/2020 12:00:00 AM EST a ctive Adderall 20 MG eCW1 ([facility]) Amphetamine aspartate 5 MG / Amphetamine Sulfate 5 MG / Dextroamphetamine saccharate 5 MG / Dextroamphetamine Sulfate 5 MG Oral Tablet 20 mg DEXTROAMPHETAMINE SULF-SACCHARATE/AMPHETAMINE SULF-ASPARTATE 06/18/2020 12:00:00 AM EST tablet 60 TAKE ONE TABLET BY MOUTH TWI CE A DAY MAXIMUM DAILY DOSE = 2 TAKE ONE TABLET BY MOUTH TWICE A DAY MAXIMUM DAILY DOSE = 2 SOLD: 06/23/2020 [facility] Amphetamine aspartate 5 MG / Amphetamine Sulfate 5 MG / Dextroamphetamine saccharate 5 MG / Dextroamphetamine Sulfate 5 MG Oral Tablet [Adderall] Adderall 20 MG Adderall 20 MG 06/17/2020 12:00:00 AM EST a ctive Adderall 20 MG eCW1 ([facility]) 40 mg 05/29/2020 12:00:00 AM EST tablet 60 START WITH 1/2 TABLET TWO TIMES A DAY FOR 3 DAYS THEN 1 TABLET TWO TIMES A DAY START WITH 1/2 TABLET TWO TIMES A DAY FOR 3 DAYS THEN 1 TABLET TWO TIMES A DAY SOLD: 07/09/2020 [facility] 40 mg 05/29/2020 12:00:00 AM EST tablet 60 START WITH 1/2 TABLET TWO TIMES A DAY FOR 3 DAYS THEN 1 TABLET TWO TIMES A DAY START WITH 1/2 TABLET TWO TIMES A DAY FOR 3 DAYS THEN 1 TABLET TWO TIMES A DAY SOLD: 06/06/2020 [facility] 40 mg 05/29/2020 12:00:00 AM EST tablet 60 START WITH 1/2 TABLET TWO TIMES A DAY FOR 3 DAYS THEN 1 TABLET TWO TIMES A DAY START WITH 1/2 TABLET TWO TIMES A DAY FOR 3 DAYS THEN 1 TABLET TWO TIMES A DAY SOLD: 08/21/2020 [facility] 40 mg 05/29/2020 12:00:00 AM EST tablet 60 START WITH 1/2 TABLET TWO TIMES A DAY FOR 3 DAYS THEN 1 TABLET TWO TIMES A DAY START WITH 1/2 TABLET TWO TIMES A DAY FOR 3 DAYS THEN 1 TABLET TWO TIMES A DAY SOLD: 09/20/2020 [facility] Verapamil hydrochloride 40 MG Oral Tablet Verapamil HCL 05/28/2020 12:00:00 AM EST active [facility] ([facility]) topiramate 25 MG Oral Tablet Topiramate 05/28/2020 12:00:00 AM EST completed [facility] ([facility]) 500 mg 05/16/2020 12:00:00 AM EST tablet 30 TAKE 1 TABLET BY MOUTH START AFTER COMPLETING 5 DAYS OF ACYCLOVIR TAKE 1 TABLET BY MOUTH START AFTER COMPLETING 5 DAYS OF ACYCLOVIR SOLD: 06/06/2020 [facility] 500 mg 05/16/2020 12:00:00 AM EST tablet 30 TAKE 1 TABLET BY MOUTH START AFTER COMPLETING 5 DAYS OF ACYCLOVIR TAKE 1 TABLET BY MOUTH START AFTER COMPLETING 5 DAYS OF ACYCLOVIR SOLD: 07/09/2020 [facility] 500 mg 05/16/2020 12:00:00 AM EST tablet 30 TAKE 1 TABLET BY MOUTH START AFTER COMPLETING 5 DAYS OF ACYCLOVIR TAKE 1 TABLET BY MOUTH START AFTER COMPLETING 5 DAYS OF ACYCLOVIR SOLD: 10/20/2020 [facility] 500 mg 05/16/2020 12:00:00 AM EST tablet 30 TAKE 1 TABLET BY MOUTH START AFTER COMPLETING 5 DAYS OF ACYCLOVIR TAKE 1 TABLET BY MOUTH START AFTER COMPLETING 5 DAYS OF ACYCLOVIR SOLD: 11/19/2020 [facility] 500 mg 05/16/2020 12:00:00 AM EST tablet 30 TAKE 1 TABLET BY MOUTH START AFTER COMPLETING 5 DAYS OF ACYCLOVIR TAKE 1 TABLET BY MOUTH START AFTER COMPLETING 5 DAYS OF ACYCLOVIR SOLD: 08/21/2020 [facility] 500 mg 05/16/2020 12:00:00 AM EST tablet 30 TAKE 1 TABLET BY MOUTH START AFTER COMPLETING 5 DAYS OF ACYCLOVIR TAKE 1 TABLET BY MOUTH START AFTER COMPLETING 5 DAYS OF ACYCLOVIR SOLD: 09/20/2020 [facility] 20 mg 05/15/2020 12:00:00 AM EST tablet 60 TAKE ONE TABLET BY MOUTH TWICE A DAY TAKE ONE TABLET BY MOUTH TWICE A DAY SOLD: 05/15/2020 [facility] Amphetamine aspartate 5 MG / Amphetamine Sulfate 5 MG / Dextroamphetamine saccharate 5 MG / Dextroamphetamine Sulfate 5 MG Oral Tablet [Adderall] Adderall 20 MG Adderall 20 MG 04/17/2020 12:00:00 AM EST a ctive Adderall 20 MG [facility] ([facility] Amphetamine aspartate 5 MG / Amphetamine Sulfate 5 MG / Dextroamphetamine saccharate 5 MG / Dextroamphetamine Sulfate 5 MG Oral Tablet [Adderall] Adderall 20 MG Adderall 20 MG 04/17/2020 12:00:00 AM EST a ctive Adderall 20 MG eCW1 ([facility]) Amphetamine aspartate 5 MG / Amphetamine Sulfate 5 MG / Dextroamphetamine saccharate 5 MG / Dextroamphetamine Sulfate 5 MG Oral Tablet [Adderall] Adderall 20 MG Adderall 20 MG 04/17/2020 12:00:00 AM EST a ctive Adderall 20 MG eCW1 ([facility]) Amphetamine aspartate 5 MG / Amphetamine Sulfate 5 MG / Dextroamphetamine saccharate 5 MG / Dextroamphetamine Sulfate 5 MG Oral Tablet [Adderall] Adderall 20 MG Adderall 20 MG 04/17/2020 12:00:00 AM EST a ctive Adderall 20 MG eCW1 ([facility]) Amphetamine aspartate 5 MG / Amphetamine Sulfate 5 MG / Dextroamphetamine saccharate 5 MG / Dextroamphetamine Sulfate 5 MG Oral Tablet [Adderall] Adderall 20 MG Adderall 20 MG 04/17/2020 12:00:00 AM EST a ctive Adderall 20 MG eCW1 ([facility]) 20 mg 03/19/2020 12:00:00 AM EDT capsule 60 TAKE TWO CAPSULES BY MOUTH EVERY DAY TAKE TWO CAPSULES BY MOUTH EVERY DAY SOLD: 06/06/2020 [facility] 20 mg 03/19/2020 12:00:00 AM EDT capsule 60 TAKE TWO CAPSULES BY MOUTH EVERY DAY TAKE TWO CAPSULES BY MOUTH EVERY DAY SOLD: 08/21/2020 [facility] 20 mg 03/19/2020 12:00:00 AM EDT capsule 60 TAKE TWO CAPSULES BY MOUTH EVERY DAY TAKE TWO CAPSULES BY MOUTH EVERY DAY SOLD: 07/09/2020 [facility] 20 mg 03/19/2020 12:00:00 AM EDT capsule 60 TAKE TWO CAPSULES BY MOUTH EVERY DAY TAKE TWO CAPSULES BY MOUTH EVERY DAY SOLD: 03/24/2020 [facility] Amphetamine aspartate 5 MG / Amphetamine Sulfate 5 MG / Dextroamphetamine saccharate 5 MG / Dextroamphetamine Sulfate 5 MG Oral Tablet [Adderall] Adderall 20 MG Adderall 20 MG 03/15/2020 12:00:00 AM EDT a ctive Adderall [facility] MG [facility] Amphetamine aspartate 5 MG / Amphetamine Sulfate 5 MG / Dextroamphetamine saccharate 5 MG / Dextroamphetamine Sulfate 5 MG Oral Tablet [Adderall] Adderall 20 MG Adderall 20 MG 03/15/2020 12:00:00 AM EDT a ctive Adderall 20 MG eCW1 [facility]) Amphetamine aspartate 5 MG / Amphetamine Sulfate 5 MG / Dextroamphetamine saccharate 5 MG / Dextroamphetamine Sulfate 5 MG Oral Tablet [Adderall] Adderall 20 MG Adderall 20 MG 03/15/2020 12:00:00 AM EDT a ctive Adderall 20 MG [facility]1 [facility] 20 mg 03/15/2020 12:00:00 AM EDT tablet 60 TAKE ONE TABLET BY MOUTH TWICE A DAY MAXIMUM DAILY DOSE = 2 TAKE ONE TABLET BY MOUTH TWICE A DAY MAX IMUM DAILY DOSE = 2 SOLD: 03/16/2020 [facility] 500 mg 03/12/2020 12:00:00 AM EDT tablet 30 TAKE ONE TABLET BY MOUTH ONCE DAILY AFTER COMPLETING 5 DAYS OF ACYCLOVIR TAKE ONE TABLET BY MOUTH ONCE DAILY AFTER COMPLETING 5 DAYS OF ACYCLOVIR SOLD: 03/24/2020 [facility] 20 mg 02/14/2020 12:00:00 AM EDT tablet 60 TAKE ONE TABLET BY MOUTH TWO TIMES A DAY MAXIMUM DAILY DOSE = 2 TAKE ONE TABLET BY MOUTH TWO TIMES A DAY MAXIMUM DAILY DOSE = 2 SOLD: 02/15/2020 [facility] Metformin hydrochloride 500 MG Oral Tablet METFORMIN HCL 02/09/2020 12:00:00 AM EDT tablet 60 TAKE ONE TABLET BY MOUTH TWI CE A DAY WITH MEALS TAKE ONE TABLET BY MOUTH TWICE A DAY WITH MEALS SOLD: 09/20/2020 [facility] Metformin hydrochloride 500 MG Oral Tablet METFORMIN HCL 02/09/2020 12:00:00 AM EDT tablet 60 TAKE ONE TABLET BY MOUTH TWI CE A DAY WITH MEALS TAKE ONE TABLET BY MOUTH TWICE A DAY WITH MEALS SOLD: 08/21/2020 [facility] Metformin hydrochloride 500 MG Oral Tablet METFORMIN HCL 02/09/2020 12:00:00 AM EDT tablet 60 TAKE ONE TABLET BY MOUTH TWI CE A DAY WITH MEALS TAKE ONE TABLET BY MOUTH TWICE A DAY WITH MEALS SOLD: 03/24/2020 [facility] Metformin hydrochloride 500 MG Oral Tablet METFORMIN HCL 02/09/2020 12:00:00 AM EDT tablet 60 TAKE ONE TABLET BY MOUTH TWI CE A DAY WITH MEALS TAKE ONE TABLET BY MOUTH TWICE A DAY WITH MEALS SOLD: 02/13/2020 [facility] 25 mg 02/09/2020 12:00:00 AM EDT tablet 15 TAKE 1/2 TABLET BY MOUTH ONCE DAILY WITH FOOD TAKE 1/2 TABLET BY MOUTH ONCE DAILY WITH FOOD SOLD: 02/13/20 20 [facility] 25 mg 02/09/2020 12:00:00 AM EDT tablet 15 TAKE 1/2 TABLET BY MOUTH ONCE DAILY WITH FOOD TAKE 1/2 TABLET BY MOUTH ONCE DAILY WITH FOOD SOLD: 03/24/20 20 [facility] 25 mg 02/09/2020 12:00:00 AM EDT tablet 15 TAKE 1/2 TABLET BY MOUTH ONCE DAILY WITH FOOD TAKE 1/2 TABLET BY MOUTH ONCE DAILY WITH FOOD SOLD: 08/22/19 21 [facility] 25 mg 02/09/2020 12:00:00 AM EDT tablet 15 TAKE 1/2 TABLET BY MOUTH ONCE DAILY WITH FOOD TAKE 1/2 TABLET BY MOUTH ONCE DAILY WITH FOOD SOLD: 09/21/19 21 [facility] 25 mg 02/09/2020 12:00:00 AM EDT tablet 15 TAKE 1/2 TABLET BY MOUTH ONCE DAILY WITH FOOD TAKE 1/2 TABLET BY MOUTH ONCE DAILY WITH FOOD SOLD: 07/09/19 21 [facility] 25 mg 02/09/2020 12:00:00 AM EDT tablet 15 TAKE 1/2 TABLET BY MOUTH ONCE DAILY WITH FOOD TAKE 1/2 TABLET BY MOUTH ONCE DAILY WITH FOOD SOLD: 06/06/20 20 [facility] 500 mg 02/09/2020 12:00:00 AM EDT tablet 60 TAKE ONE TABLET BY MOUTH TWICE A DAY WITH MEALS TAKE ONE TABLET BY MOUTH TWICE A DAY WITH MEALS SOLD: 07/09/2020 [facility] 500 mg 02/09/2020 12:00:00 AM EDT tablet 60 TAKE ONE TABLET BY MOUTH TWICE A DAY WITH MEALS TAKE ONE TABLET BY MOUTH TWICE A DAY WITH MEALS SOLD: 06/06/2020 [facility] 20 mg 11/07/2019 12:00:00 AM EDT capsule 60 TAKE TWO CAPSULES BY MOUTH EVERY DAY TAKE TWO CAPSULES BY MOUTH EVERY DAY SOLD: 02/13/2020 [facility] 500 mg 09/08/2019 12:00:00 AM EDT tablet 30 TAKE 1 TABLET BY MOUTH AFTER COMPLETING 5 DAYS OF ACYCLOVIR TAKE 1 TABLET BY MOUTH AFTER COMPLETING 5 DAYS OF ACYCLOVIR SOLD: 02/13/2020 [facility] Insurance Providers Payer name Policy type / Coverage type Policy ID Covered alliance party ID Covered alliance party's relationship to alberto Policy Alberto Plan Information [facility] PLAN [facility] [id number] SP [id number] [facility] Community Plan Primary [id number] MEDICAID GME [id number] S [id number] [facility] HEA [id number] S [id number] HEA [id number] SELF PAY ONLY [id number] SP [id number] [facility](MCAID) O [id number] S [id number] EMEDNY [id number] SP [id number] MEDICAID [id number] SP [id number] [facility] COMMUNITY PLAN MCDO UN SP UN ANSI-Medicaid [id number] ANSI-Medicaid [id number] ANSI-Medicaid [id number] ANSI-Medicaid [id number] ANSI-Medicaid [id number] ANSI-Medicaid [id number] ANSI-Medicaid [id number] ANSI-Medicaid [id number] ANSI-Medicaid [id number] ANSI-Medicaid [id number] ANSI-Medicaid [id number] ANSI-Medicaid [id number] [facility] Health Maintenance Organization ([facility]) [id number] Self [id number] ANSI-Medicaid [id number] ANSI-Medicaid [id number] ANSI-Medicaid [id number] ANSI-Medicaid [id number] ANSI-Medicaid [id number] ANSI-Medicaid [id number] ANSI-Medicaid [id number] ANSI-Medicaid [id number] ANSI-Medicaid [id number] ANSI-Medicaid [id number] ANSI-Medicaid [id number] ANSI-Medicaid [id number] ANSI-Medicaid [id number] ANSI-Medicaid [id number] ANSI-Medicaid [id number] ANSI-Medicaid [id number] ANSI-Medicaid [id number] ANSI-Medicaid [id number] ANSI-Medicaid [id number] ANSI-Medicaid [id number] ANSI-Medicaid [id number] ANSI-Medicaid [id number] ANSI-Medicaid [id number] ANSI-Medicaid [id number] ANSI-Medicaid [id number] ANSI-Medicaid [id number] ANSI-Medicaid [id number] ANSI-Medicaid [id number] ANSI-Medicaid [id number] ANSI-Medicaid [id number] ANSI-Medicaid [id number] ANSI-Medicaid [id number] ANSI-Medicaid [id number] ANSI-Medicaid [id number] ANSI-Medicaid [id number] ANSI-Medicaid [id number] ANSI-Medicaid [id number] ANSI-Medicaid [id number] ANSI-Medicaid [id number] [facility] [id number] MEDICAID [id number] SP [id number] MEDICAID [id number] S [id number] [facility] Health Maintenance Organization (O) [id number] Self [id number] [facility] COMMUNITY PLAN [facility] [id number] SP [id number] [facility] Health Maintenance Organization (O) [id number] Self [id number] [facility] [id number] SP [id number] [facility] Health Maintenance Organization (O) [id number] Self [id number] SELF PAY UNAVAILABLE SP UNAVAILA BLE [facility] [id number] SP [id number] [facility] [id number] SP [id number] [facility] [id number] [facility] [id number] [facility] BLUE [id number] SP [id number] [facility] [id number] [place] [id number] [facility] Maintenance [facility] ([facility]) [id number] [facility] PLAN MCDO UNAVAILABLE SP UNAVAILABLE [facility] Health Maintenance Organization ([facility]) [id number] Self [facility] COMMUNITY PLAN MCDO [id number] SP [id number] [facility] [id number] SP [id number] Problems, Conditions, and Diagnoses Code Display Name Description Problem Type Effective Dates Data Source(s) Q28.2 Arteriovenous malformation of cerebral v essels Arteriovenous malformation of cerebral vessels Diagnosis 01/16/2021 12:00:00 AM EDT [facility] 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 12: 00:00 AM EDT [facility] I63.89 [id number] 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 Problem 12/02/2020 12:00:00 AM EDT [facility]CW[facility]) G62.9 [id number] Neuropathy Problem 11/22/2020 12:00:00 AM ED T eCW1 [facility]) R20.2 [id number] Paresthesias Problem 11/01/2020 12:00:00 AM EDT eCW1 [facility]) Q27.30 [id number] Arteriovenous malformation Problem 12:00:00 AM EDT eCW1 ([facility]) [id number] Migraine Migraine Problem 05/28/2020 12:00:00 AM ES T [facility] ([facility], ) Surgeries/Procedures Procedure Description Date Indications Data Source(s) OFFICE OUTPATIENT VISIT 15 MINUTES 04/01/2021 12:00:00 AM EDT [facility] ([facility], ) OFFICE OUTPATIENT NEW 30 MINUTES 03/12/2021 12:00:00 A M EDT [facility] ([facility], ) OFFICE OUTPATIENT VISIT 25 MINUTES 03/06/2021 12:00:00 AM EDT [facility] ([facility], ) OFFICE OUTPATIENT VISIT 25 MINUTES 12/31/2020 12:00:00 AM EDT [facility] ([facility]) OFFICE OUTPATIENT VISIT 40 MINUTES 11/29/2020 12:00:00 AM EDT [facility] ([facility]) OFFICE OUTPATIENT VISIT 25 MINUTES 11/21/2020 12:00:00 AM EDT [facility] ([facility], ) SBSQ OBSERVATION CARE/DAY LOW SEVERITY 11/17/2020 12:0 0:00 AM EDT [facility] ([facility]) INITIAL OBSERVATION CARE/DAY MODERATE SEVERITY 021 12:00:00 AM EDT [facility] ([facility]) HOSPITAL DISCHARGE DAY MANAGEMENT > 30 MIN 10/27/2020 12:00:00 AM EDT [facility] ([facility]) SBSQ HOSPITAL CARE/DAY 25 MINUTES 10/26/2020 12:00:00 AM EDT [facility] ([facility]) Vertebral Artery Catheter Placement 10/25/2020 12:00:0 0 AM EDT [facility] ([facility]) Each Intracranial Branch Of The Internal Corotid/Vertebral 10/25/2020 12:00:00 AM EDT [facility]) Moderate Sedation Services; Same Phys Intl 15 Mins; PT >= 5 Years 10/25/2020 12:00:00 AM EDT [facility]) OFFICE OUTPATIENT VISIT 25 MINUTES 10/01/2020 12:00:00 AM EDT [facility] ([facility]) HOSPITAL DISCHARGE DAY MANAGEMENT > 30 MIN 09/10/2020 12:00:00 AM EDT [facility] ([facility]) Moderate Sedation Services; Same Phys Intl 15 Mins; PT >= 5 Years 09/09/2020 12:00:00 AM EDT [facility]) Transcatheter Therapy Embolization Any Method 09/10/19 12:00:00 AM EDT [facility] ([facility]) Transcatheter Permanent Occlusion/Embolization Percutaneous COCKTAIL SERVER 09/09/2020 12:00:00 AM EDT [facility]) Catheter Placement Arterial System Addtl 2ND Ord/3RD Ord Tho r/BRC 09/09/2020 12:00:00 AM EDT [facility]) Catheter Placement Arterial System Init 3RD Ord Thoracic/Bra chioc 09/09/2020 12:00:00 AM EDT [facility]) ANGRPH CATH F-UP STD TCAT THER EMBOLIZATION/NFS 2020 12:00:00 AM EDT [facility] ([facility]) OFFICE OUTPATIENT VISIT 40 MINUTES 08/23/2020 12:00:00 AM EST [facility] ([facility]) TOBACCO USE CESSATION INTERMEDIATE 3-10 MINUTES 2020 12:00:00 AM EST [facility] ([facility]) Angiography Internal Corotid Of The Ipsil Intrac Circulation 08/15/2020 12:00:00 AM EST [facility]) Vertebral Artery Catheter Placement 08/15/2020 12:00:0 0 AM EST [facility] ([facility]) External Artery Carotid Cath PLMNT 08/15/2020 12:00:00 AM EST [facility] ([facility]) Moderate Sedation Services; Same Phys Intl 15 Mins; PT >= 5 Years 08/15/2020 12:00:00 AM EST [facility]) OFFICE OUTPATIENT NEW 45 MINUTES 08/07/2020 12:00:00 A M EST [facility] ([facility]) TOBACCO USE CESSATION INTERMEDIATE 3-10 MINUTES 2020 12:00:00 AM EST [facility] ([facility]) Magnetic Resonance Angiogtaphy Head W/O Contrast Material(S) 06/18/2020 12:00:00 AM EST [facility] ([facility] Magnetic Resonance Angiogtaphy Head W/O Contrast Material(S) 06/18/2020 12:00:00 AM EST [facility] ([facility]) Results ID Date Data Source [id number] 03/04/2021 12:00:00 AM EDT [facility] Name Value Range Interpretation Code Description Data Carolann rce(s) Supporting Document(s) SARS-CoV2 Rapid Antigen Negative [facility] This lab was reported by [facility]. ID Date Data Source [id number] 01/20/2021 01:06:12 PM EDT [facility] Name Value Range Interpretation Code Description Data Carolann rce(s) Supporting Document(s) RT - Initial Consult Visit JORGE v1 [facility] WBPJHv7iDpOZQyAov7ccTZtnXIPbu1GcBVw8NR0KH528pMC6vYydfTRemIKfFnk2PSauDaLnpSE6wqiP tKQ [file] zo6Duipq4wEiH31nqOjWMK355grFR3jb7/bJUr3UriI905++aH/teOMsL0oiRq86KtD36serKcNru+FIRER LOW PRESSURE [file] UdeyAwa3Gs0Q64SoHREBPYWY7CiDVNJrKj4X55py6834vpR5ke1M8e/P6V/Mary Ann/vqOyHmy1KcZwqVg1 yh2xdV2ThBVDngW9/isyXDX5dWkvP+BFY+viv4z/tBD12uap03oPly8R6PZB8f9iLLp2gD0JKbNz4+Ea fTnmPNf3XOZHb45M4uRGcM3X2kTiTEq5TtlOQJXD+K uF/scATIE+E0O2HAMiF/a3HAXph+HPVBUpSGgF6T568KtmLyfIxZ310COkwpiA5gIPZWTOZSJi8ues/H cId1I0H3qSzxulMvTyzsxQrHx7sUyBvEMe7KtU4Zuv1pNvsUhO6T6TbPrWKN9OfINy3DH1arSL36g98u j2+C3xjVJ1Ba6KoIEkB6AEXGhzY+Mr0F7R+ZB9pgVs 4w/GG/yrOq+DUIPGhPQVlJLAnqnXrt4Z2MDVEL6IovlmG8dc/AfrGAmykfShqqvPCjzNdjoi5Tr/Glsn 25dW2A26LmiF5zUYD5qXzvGwC9I/m0iSpfJ1gsNJ5LbhmYlhL4Z8AarY1RSIIJRb0fimHBWo9iXcU3K7 HXixI+9Euhj3tiJC+qwR7gQ+/Q4NoR+cEjgh7RA+Ea F2rodFTM3ttt7ZAWPQZ0FWjUn7WDqP1svFxyXCvXbIhUOszW3OXf5bP3K6OaCJ5ZGo+Sfi3/AIv84/QZ henry+V+lFwNuTdxjKYPO9/7b+q9QyHJ4D5an3V/mT2CdjH52eFwI8+YHfFCVFwK9MJqB2fUx3zPOpo0lcR YEPQwCFTlyjMwtvsKumrlaX3pBphigEb3quwuyzpA/ [file] BkGBCXAPqmDn1bjCFzLXReMj9PS6KilpGmQmuXGg 4+FYkCTuF3BFW1pWTpKu9AGXL3SSd7KTphHLKYZb2V ID Date Data Source [id number] 11/29/2020 03:46:00 PM EDT [facility] OFFICE MRI BRAIN WITHOUT CONTRAST CLINICAL STATEMENT: AVM. Nontraumatic subarachnoid hemorrhage. TECHNIQUE: MRI of the brain was performed without gadolinium. The following pulse sequences were performed: Sagittal T1 and axial T2, FLAIR, GRE, DWI. COMPARISON: None of this type. CT brain dated 11/17/2020. FINDINGS: The patient is status post Zelalem embolization of left cerebellar AVM, resulting in susceptibility artifact. A small focus of restricted diffusion with corresponding T2 signal hyperintensity is identified within the left dorsal midbrain, measuring 7 mm, which demonstrates increased susceptibility artifact on gradient echo sequence, likely representing a subacute hemorrhagic infarct. This finding correlates with the previously seen area of low attenuation on CT brain dated 11/17/2020. There is no acute parenchymal hemorrhage, extra-axial fluid collection, mass-effect or midline shift. The ventricles are normal in size and configuration. Normal intracranial arterial flow-voids are present. The visualized paranasal sinuses and orbits appear unremarkable. IMPRESSION: Since 11/17/2020, Status post Zelalem embolization of left cerebellar AVM, with expected postoperative changes. 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 D7 Name Value Range Interpretation Code Description Data Carolann rce(s) Supporting Document(s) ID Date Data Source [id number] 11/17/2020 09:19:00 AM EDT [facility] DATE OF EXAM: 1EXAM: CT Head wi thout contrast INDICATION: Follow-up bleed TECHNIQUE: 5mm Multidetector axial slices were obtained from the skull base to the vertex without contrast. COMPARISON: 10/26/2020 FINDINGS: No intracranial hemorrhage is identified. There is a small area of hypodensity in the left midbrain compatible with developing encephalomalacia. There is no mass, mass-effect or shifting of the midline structures. The ventricles, cerebral sulci and cisterns are age appropriate. Embolization material is noted in the left posterior fossa. No fracture of the calvarium is identified. The visualized paranasal sinuses and the mastoid air cells are clear. IMPRESSION: No intracranial hemorrhage or mass effect. Small area of developing encephalomalacia in the left midbrain. Professional interpretation performed at [facility] .End of diagnostic report for accession: [id number] Interpreted: Génesis Andrews MDTranscribed: 11/17/2020 09:17 AMSigned: 11/17/2020 09:19 AM Génesis Andrews MD N: [id number] [facility] # [id number] BILL # [id number] Name Value Range Interpretation Code Description Data Carolann rce(s) Supporting Document(s) ID Date Data Source [id number] 11/16/2020 09:21:00 AM EDT [facility] Name Value Range Interpretation Code Description Data Carolann rce(s) Supporting Document(s) SODIUM 141 mmol/L (136-145) [facility] POTASSIUM 4.0 mmol/L (3.6-5.2) [facility] CHLORIDE 106 mmol/L (100-108) [facility] CO2 27 mmol/L (22-31) [facility] ANION GAP 8 mmol/L (7-16) [facility] UREA NITROGEN 19 mg/dL (7-24) [facility] CREATININE 0.95 mg/dL (0.60-1.00) [facility] BUN/CREAT RATIO 20.0 RATIO (10.0-20.0) [facility] GLUCOSE 142 mg/dL (70-99) H [facility] CALCIUM 8.4 mg/dL (8.4-10.2) [facility] GFR >60 ml/min/1.73m2 (>59) [facility] GFR ( AMER) >60 ml/min/1.73m2 (>59) [facility] GFR INTERPRETATION [facility] --NORMAL KIDNEY FUNCTION OR MILD DISEASE - GFR >OR= 60CHRONIC KIDNEY DISEASE - GFR 15 - 59RENAL FAILURE - GFR <15 Est. GFR calculation based on the MDRDstudy equation, which assumes a steadystate for creatinine. Est. GFR should notbe used for medication dosing. ID Date Data Source [id number] 11/16/2020 09:19:10 AM EDT [facility] Name Value Range Interpretation Code Description Data Carolann rce(s) Supporting Document(s) WBC 10.2 10*3/uL (4.1-11.0) [facility] RBC 4.03 10*6/uL (4.00-5.40) [facility] HGB 11.9 g/dL (12.0-16.0) L [facility] HCT 36.0 % (36.0-47.0) [facility] MCV 89.2 fL (80.0-95.0) [facility] MCH 29.4 pg (27.0-32.0) [facility] MCHC 32.9 g/dL (32.0-36.0) [facility] RDW 13.9 % (10.5-14.5) [facility] PLT 279 10*3/uL (150-450) [facility] MPV 8.0 fL (7.1-10.7) [facility] NEUT % 65.8 % (35.0-75.0) [facility] LYMPH % 24.5 % (16.0-52.0) [facility] MONO % 7.1 % (0.0-8.0) [facility] EOS % 2.0 % (0.0-5.0) [facility] BASO % 0.6 % (0.0-4.0) [facility] NEUT # 6.7 10*3/uL (1.8-7.7) [facility] LYMPH # 2.5 10*3/uL (1.2-4.8) [facility] MONO # 0.7 10*3/uL (0.0-0.8) [facility] Eosinophils [#/volume] in Blood by Automated count 0.2 10*3/uL (0.0-0 .5) [facility] BASO # 0.1 10*3/uL (0.0-0.2) [facility] ID Date Data Source [id number] 11/16/2020 09:26:11 AM EDT [facility] Name Value Range Interpretation Code Description Data Carolann rce(s) Supporting Document(s) URINE WBC (0-5) [facility] URINE RBC (0-2) [facility] EPITHELIAL CELLS 2+ [HPF] [facility] BACTERIA 1+ [HPF] [facility] MUCUS 1+ [HPF] [facility] AMORPHOUS 1+ [HPF] [facility] ID Date Data Source [id number] 11/16/2020 09:10:30 AM EDT [facility] Name Value Range Interpretation Code Description Data Carolann rce(s) Supporting Document(s) COLOR [facility] APPEARANCE [facility] SPEC GRAV URINE 1.033 (1.003-1.030) H [facility] PH URINE 5.0 (5.0-7.5) [facility] LEUK ESTERASE 1+ (NEG) A [facility] NITRITE URINE (NEG) [facility] PROTEIN URINE (NEG) [facility] GLUCOSE URINE (NEG) [facility] KETONE URINE (NEG) [facility] UROBILINOGEN 0.2 mg/dL (0-1.0) [facility] BILIRUBIN URINE (NEG) [facility] BLOOD/HGB URINE (NEG) [facility] ID Date Data Source [id number] 11/16/2020 01:37:00 AM EDT [facility] Name Value Range Interpretation Code Description Data Carolann rce(s) Supporting Document(s) SARS coronavirus 2 RNA [Presence] in Res piratory specimen by REYNALDO with probe detection NEGATIVE [facility] This lab was ordered by [facility] a nd reported by [facility]. ID Date Data Source [id number] 10/26/2020 11:13:21 PM EDT [facility] Name Value Range Interpretation Code Description Data Carolann rce(s) Supporting Document(s) POC GLUCOSE 141 mg/dL (70-99) [facility] Jay Morocho NOTIFIED NURSEPERFORMED BY CLINICAL S TAFF ID Date Data Source [id number] 10/26/2020 07:30:37 AM EDT [facility] Name Value Range Interpretation Code Description Data Carolann rce(s) Supporting Document(s) POC GLUCOSE 134 mg/dL (70-99) [facility] Jay Morocho NOTIFIED NURSEPERFORMED BY CLINICAL S TAFF ID Date Data Source [id number] 10/26/2020 08:05:00 AM EDT [facility] DATE OF EXAM: 10/26/2020XAM: CT Head WO Contrast INDICATION: F/U BLEED. History of cerebellar AVM embolization. COMPARISON: 10/25/2020 TECHNIQUE: Axial CT images were obtained of the brain from the base of skull to the vertex without contrast. Coronal and sagittal reformatted images were obtained FINDINGS: Embolization coils again noted in the left cerebellum with associated streak artifact, which limits evaluation of regional tissues. There has been further decrease in the previously seen hyperdensity in the left midbrain, which is no longer conspicuous. No new hemorrhage. Ventricles and sulci are within normal limits. No midline shift. No extra-axial fluid collection. There is no loss of munguia-white matter differentiation to suggest acute territorial infarct. Calvarium is intact. Visualized paranasal sinuses and mastoid air cells are clear. Orbits appear unremarkable. IMPRESSION: Further improvement in left midbrain hyperdensity compared to the prior studies, which is no longer conspi cuous. No other significant interval change. A contemporaneous report was provided by [facility] at the time of this examination, reporting similar findings. Professional interpretation performed at [facility] [phone].End of diagnostic report for accession: [id number] Interpreted: Francisca Retana MDTranscribed: 10/26/2020 08:00 AMSigned: 10/26/2020 08:05 AM Francisca Retana MD [facility] # [id number] [facility] # [id number] Name Value Range Interpretation Code Description Data Carolann rce(s) Supporting Document(s) ID Date Data Source [id number] 10/26/2020 03:05:23 AM EDT [facility] Name Value Range Interpretation Code Description Data Carolann rce(s) Supporting Document(s) CALCIUM IONIZED 5.08 mg/dL (4.64-5.28) [facility] IONIZED CALCIUM NORMALIZED TO PH 7.40 AN D 37 DEGREES C. ID Date Data Source [id number] 10/26/2020 03:03:27 AM EDT [facility] Name Value Range Interpretation Code Description Data Carolann rce(s) Supporting Document(s) PHOSPHORUS 2.9 mg/dL (2.5-4.5) [facility] ID Date Data Source [id number] 10/26/2020 03:03:27 AM EDT [facility] Name Value Range Interpretation Code Description Data Carolann rce(s) Supporting Document(s) MAGNESIUM 1.8 mg/dL (1.7-2.4) [facility] ID Date Data Source [id number] 10/26/2020 03:03:27 AM EDT [facility] Name Value Range Interpretation Code Description Data Carolann rce(s) Supporting Document(s) SODIUM 144 mmol/L (136-145) [facility] POTASSIUM 3.8 mmol/L (3.6-5.2) [facility] CHLORIDE 111 mmol/L (100-108) [facility] CO2 27 mmol/L (22-31) [facility] ANION GAP 6 mmol/L (7-16) L [facility] UREA NITROGEN 9 mg/dL (7-24) [facility] CREATININE 0.98 mg/dL (0.60-1.00) [facility] BUN/CREAT RATIO 9.2 RATIO (10.0-20.0) [facility] GLUCOSE 122 mg/dL (70-99) [facility] CALCIUM 7.8 mg/dL (8.4-10.2) [facility] GFR >60 ml/min/1.73m2 (>59) [facility] GFR ( AMER) >60 ml/min/1.73m2 (>59) [facility] GFR INTERPRETATION [facility] --NORMAL KIDNEY FUNCTION OR MILD DISEASE - GFR >OR= 60CHRONIC KIDNEY DISEASE - GFR 15 - 59RENAL FAILURE - GFR <15 Est. GFR calculation based on the MDRDstudy equation, which assumes a steadystate for creatinine. Est. GFR should notbe used for medication dosing. ID Date Data Source [id number] 10/26/2020 02:37:20 AM EDT [facility] Name Value Range Interpretation Code Description Data Carolann rce(s) Supporting Document(s) WBC 11.9 10*3/uL (4.1-11.0) [facility] RBC 4.13 10*6/uL (4.00-5.40) [facility] HGB 12.2 g/dL (12.0-16.0) [facility] HCT 36.6 % (36.0-47.0) [facility] MCV 88.7 fL (80.0-95.0) [facility] MCH 29.6 pg (27.0-32.0) [facility] MCHC 33.4 g/dL (32.0-36.0) [facility] RDW 12.9 % (10.5-14.5) [facility] PLT 243 10*3/uL (150-450) [facility] MPV 8.3 fL (7.1-10.7) [facility] ID Date Data Source [id number] 10/25/2020 07:15:00 PM EDT [facility] DATE OF EXAM: 10/25/2020T HEAD WITHOUT CONTRAST INDICATION: F/U BLEED TECHNIQUE: Contiguous axial CT images of the head were acquired from the base of the skull to the vertex without intravenous contrast administration and submitted for interpretation. COMPARISON: 10/25/2020 FINDINGS: Left cerebellar coil material again identified with associated streak artifact somewhat limiting evaluation of the adjacent structures. Previously noted hyperdensity in the region of the left midbrain is less dense when compared to prior examination. No new hemorrhage is identified. No large territory infarction is seen. Imaged portions of the paranasal sinuses, mastoid air cells, and orbits are unremarkable. There are no acute skull fractures or scalp swelling. IMPRESSION: Improved hyperdensity in the region of the left midbrain. L2End of diagnostic report for accession: [id number] Interpreted: Hellen Mendieta DOTranscribed: 10/25/2020 07:12 PMSigned: 10/25/2020 07:15 PM Hellen Mendieta DO ----- [facility] # [id number] [facility] # [id number] Name Value Range Interpretation Code Description Data Carolann rce(s) Supporting Document(s) ID Date Data Source [id number] 10/25/2020 01:07:00 PM EDT [facility] DATE OF EXAM: 10/25/2020XAM: CT Head wi thout contrast INDICATION: Follow-up stage II cerebellar AVM embolization. TECHNIQUE: 5mm Multidetector axial slices were obtained from the skull base to the vertex without contrast. COMPARISON: MRA head 06/18/2020. FINDINGS: There is streak artifact from embolization material overlying the left cerebellar hemisphere. There is trace wedge-shaped hyperdensity extending from the level of the coil pack to the left aspect of the midbrain where there is hyperdensity which may represent a combination of hemorrhage and contrast. No mass-effect or shift of the midline structures is present. The ventricles, cerebral sulci and cisterns are age appropriate. No fracture of the calvarium is identified. The visualized paranasal sinuses and the mastoid air cells are clear. IMPRESSION: Status post embolization of a left cerebellar arteriovenous malformation. There is a small amount of hyperdensity extending from the level of the coil packs with hyperdensity in the left aspect of the midbrain which may be related to a mixture of contrast and hemorrhage. Professional interpretation performed at [facility] .End of diagnostic report for accession: [id number] Interpreted: Génesis Andrews MDTranscribed: 10/25/2020 01:03 PMSigned: 10/25/2020 01:07 PM Génesis Andrews MD [facility] # [id number] BILL # [id number] Name Value Range Interpretation Code Description Data Carolann rce(s) Supporting Document(s) ID Date Data Source [id number] 10/30/2020 03:25:00 PM EDT [facility] DATE OF EXAM: 10/25/2020ate of Procedur e: 10/25/2020reoperative Diagnosis: Left cerebellar AVMPostoperative Diagnosis: Left cerebellar AVM Procedure(s):1. Diagnostic cerebral angiogram: - Left subclavian cervical (2D); Left vertebral cervical/cerebral (2D); Left PICA, DEVELOPER RELATIONS MANAGER and SCA superselective microcatheter cerebral (2D); Right femoral runoff (2D)2. Conscious sedation for 42 minutes3. Right femoral 6/7F Myn[employer] Senior Oracle Developer closure device placed for arteriotomy closure Surgeon: Lexa Padilla, BOBBIssistant: King Mauricio RT Prior problems with sedation: NonePotential drug/sedative interactions: NoneAllergies: NKDA Mallampati class IIASA class II Medications/Sedation: 2 mg of versed IV; 100 mcg of fentanyl IV; 4mg Zofran IV Indication: Mrs. Brea Encarnacion is a very pleasant 34 year-old female who has a left cerebellar AVM which was last treated on 09/09/2020 for stage I endovascular embolization. There are still 1 or 2 small branches that are potentially amenable to additional endovascular emboliza tion in a staged fashion and she comes in today for the planned stage II embolization of this AVM. She had numbness of the left side of the face and that spread to her body after that but she says that the numbness has resolved completely. She has not been able to quit smoking yet and she has gone through some nicotine withdrawal and has had some anxiety because of her attempts to quit smoking. Otherwise, she seems to be doing very well and she has no focal deficits reported. The risks, benefits and alternatives of this procedure were explained to the patient and her questions were answered to her satisfaction. She understands and agrees to proceed with the diagnostic cerebral angiogram and possible AVM embolization. Written informed consent was obtained prior to proceeding with the angiogram. Procedure details: The patient was properly identified by comparing the signed consent with the name bracelet to confirm the proper medical record number, date of , and patient name and when this was confirmed the patient was placed on the [employer] biplane angio table in supine position. The right groin site was prepped and draped in usual fashion and a timeout was performed, confirming again the correct patient and procedure being performed. Conscious sedation was administered and 10 cc of 2% lidocaine without epinephrine was injected into the right groin site around the femoral artery and an arteriotomy was performed using the modified Seldinger technique with a 5 Nauruan micropuncture kit. I then placed a 6 Nauruan sheath into the right femoral artery without any complications or difficulties. I then placed the 5 Nauruan angled glide catheter over a glide wire to the aortic arch and then removed the glide wire and double flushed the catheter by aspirating back with one saline syringe, and then flushing forward with clean heparinized saline syringe. I then accessed the left subclavian artery and performed a cervical diagnostic angiogram which demonstrates a normal left subclavian artery with normal arterial branching pattern and no hemodynamically significant focal stenosis or occlusion appreciated, with normal anterograde blood flow present. The left vertebral artery origin appears normal arising from the left subclavian artery as expected and without hemodynamically significant stenosis or occlusion or evidence of dissection. I then selectively catheterized the left vertebral artery over a glidewire using roadmapping techniques under fluoroscopic guidance. I then performed a cervical and cerebral diagnostic angiogram from the left vertebral artery injection which demonstrates a normal and smooth appearing left vertebral artery cervical segment without hemodynamically significant stenosis, occlusion or evidence of dissection. The cerebral angiogram from the left vertebral artery injection shows an [place] glue cast in the left superior cerebellum and there is a very trace amount of early venous drainage, with a small supplying vessel from either the DEVELOPER RELATIONS MANAGER, SCA or PICA. I then selectively catheterized these vessels with an Eschelon-10 microcatheter over a Fathom-14 microwire, and the left PICA appeared to not have any branches supplying the AVM, but rather appeared generally normal. The left DEVELOPER RELATIONS MANAGER initial run appeared to fill a small reconciling clerk branch with drainage to the vein of Ramirez and the straight sinus as well as small dural vessels around the region of the pineal and brainstem, and the contrast around the pineal region did now wash out as quickly and was concerning for a small amount of contrast extravasation. There was no active contrast extravasation seen on any of the subsequent imaging. The patient did also develop a significant headache but remained otherwise neurologically intact and the headache started to subside, and the vital signs and blood pressure remained normal. I then pulled the microcatheter to the proximal left DEVELOPER RELATIONS MANAGER and a run from that superselective microcatheter cerebral angiogram run showed that there was perhaps a very small questionable feeding branch to the AVM, but no significant early venous drainage was appreciated. Additionally, there was otherwise normal arterial branching pattern seen from the left DEVELOPER RELATIONS MANAGER and no contrast extravasation or distal thromboembolic events were seen. I then was able to selectively catheterize the left SCA and the microcatheter angiogram run demonstrated that a small distal branch from this artery supplied the remainder of the AVM almost exclusively, and the early venous drainage on this angiogram run almost completely matches the vertebral artery injection run. Of the 2 branches seen, the one located more superiorly as seen on the COLOMBIAN projection appears to supply all normal cerebellum. The inferior and posteriorly located branch appears to supply not only the AVM, but also normal cerebellum tissue between the tip of the catheter and the origin of the abnormal AVM branch. The microcatheter cannot be safely positioned any further distal than this point and it is not possible to embolize the AVM without sacrificing normal branches feeding normal cerebellum in between, so I decided to not perform any Brevital testing or embolization since this would not be safe. The patient stated that the headache was improving but she had right sided numbness as well as some slurred speech, and she also developed some weakness, so a hemorrhage was suspected and she was brought to CT after the procedure for evaluation. At the end of the procedure I then completely removed the catheter from the patient and performed a right femoral runoff to confirm that there were no complications at the femoral arteriotomy access site. I then placed a 6/7F Mynx Senior Oracle Developer closure device in the right femoral arteriotomy site without complications. The patient generally tolerated this procedure well but the concern for the new clinical exam findings prompted a CT head study which shows some contrast in the region of the left side of the brainstem near the tectum, as well as near the pineal. The tectal region contrast and blood findings would explain her symptoms. Her blood pressure was being maintained within normal limits the entire time. I was present for the duration of the procedure and I performed and/or directly supervised all critical components of the procedure. Total contrast: 60 cc of Omnipaque- 300Total fluoro time: 11.2 minutesTotal fluoro dose: 1,209.29 mGy Angiographic interpretation:1. Left subclavian cervical run shows a normal left vertebral artery origin without evidence of stenosis, dissection, or other vascular lesions. There is anterograde blood flow and normal branching from the left subclavian artery without any subclavian stenosis. 2. Selective left vertebral artery injection in the cervical and cerebral views shows a normal and smooth appearing left vertebral artery cervical segment without hemodynamically significant stenosis, occlusion or evidence of dissection. The cerebral angiogram from the left vertebral artery injection shows an [place] glue cast in the left superior cerebellum and there is a very trace amount of early venous drainage, with a small supplying vessel from either the DEVELOPER RELATIONS MANAGER, SCA or PICA. Superselective microcatheter cerebral angiogram runs from the left PICA appeared to not have any branches supplying the AVM, but rather appeared generally normal. The left DEVELOPER RELATIONS MANAGER initial run appeared to fill a small reconciling clerk branch with drainage to the vein of Ramirez and the straight sinus as well as small dural vessels around the region of the pineal and brainstem, and the contrast around the pineal region did now wash out as quickly and was concerning for a small amount of contrast extravasation. There was no active contrast extravasation seen on any of the subsequent imaging. A follow up microcatheter run from the proximal left DEVELOPER RELATIONS MANAGER showed that there was perhaps a very small questionable feeding branch to the AVM, but no significant early venous drainage was appreciated. Additionally, there was otherwise normal arterial branching pattern seen from the left DEVELOPER RELATIONS MANAGER and no contrast extravasation or distal thromboembolic events were seen. A follow up angiogram run from the left SCA showed that a small distal branch from this artery supplied the remainder of the AVM almost exclusively, and the early venous drainage on this angiogram run almost completely matches the vertebral artery injection run. Of the 2 branches seen, the one located more superiorly as seen on the COLOMBIAN projection appears to supply all normal cerebellum. The inferior and posteriorly located branch appears to supply not only the AVM, but also normal cerebellum tissue between the tip of the catheter and the origin of the abnormal AVM branch. 3. Right femoral runoff angiogram showed the arteriotomy access site located over the lower third of the femoral head and there is no significant peripheral vascular disease, calcification, or stenosis. The sheath was inserted above the femoral bifurcation. Impression: Mrs. Brea Encarnacion had a diagnostic cerebral angiogram with superselective microcatheter runs to evaluate for the residual feeding branch to the left cerebellar AVM, and there was a small left DEVELOPER RELATIONS MANAGER reconciling clerk rupture with contrast extravasation. The small left SCA branch is too distal and small to safely embolize and either surgical resection or Cyberknife stereotactic radiosurgery or possibly even transvenous embolization are options available for treating the residual AVM. The small reconciling clerk hemorrhage will likely resolve spontaneously, but because of the new symptoms and this complication, I will be observing her in the ICU until she is ready for discharge. I relayed the results of this angiogram to the patient and to her mother and boyfriend over the phone at the end of the procedure, and I answered all of their questions to their satisfaction. They understand and agree with this plan.End of diagnostic report for accession: [id number] Interpreted: Lexa Padilla MDTranscribed: 10/25/2020 12:58 PMSigned: 10/30/2020 03:25 PM Lexa Padilla MD [facility] # [id number] BILL # [id number] [facility] Name Value Range Interpretation Code Description Data Carolann rce(s) Supporting Document(s) ID Date Data Source [id number] 10/21/2020 02:00:00 PM EDT [facility] ([facility]) Name Value Range Interpretation Code Description Data Carolann rce(s) Supporting Document(s) Laboratory test finding (navigational concept) Laboratory test result [facility] ([facility]) ASSAY INFORMATION: Real Time RT-PCR NOTE: The COVID-19 assay has been cleared by the U.S. Food and Drug Administration under the Emergency Use Authorization (EUA). [employer] are designated as high complexity laboratories by the Clinical Laboratory Improvement Amendments of 1988(CLIA) and are qualified to perform this test. Not Detected ID Date Data Source [id number] 10/21/2020 02:00:00 PM EDT [facility] Name Value Range Interpretation Code Description Data Carolann rce(s) Supporting Document(s) SARS-CoV-2 (COVID-19) RNA [Presence] in Respiratory specimen by REYNALDO with probe detection Not Detected [facility] This lab was ordered by [facility] and reported by [employer] ID Date Data Source [id number] 10/08/2020 01:35:00 PM EDT [facility] ([facility]) Name Value Range Interpretation Code Description Data Carolann rce(s) Supporting Document(s) Glucose, Fasting 89 mg/dL 70-100 Normal (applies to non-numeric results) [facility] ([facility]) Blood Urea Nitrogen 11 mg/dL 7-18 Normal (applies to non-nume sumanth results) [facility]) Glomerular Filtration Rate Laboratory test result Normal (applies to non- numeric results) [facility] ([facility]) <content>Units are mL/min/1.73 m2</content>
<content></content>
<content>Chronic Kidney Disease Staging per NKF:</content>
<content></content>
<content>Stage I & II GFR >=60 Normal to Mildly Decreased</content>
<content>Stage III GFR 30- 59 Moderately Decreased</content>
<content>Stage IV GFR 15-29 Severely Decreased</content>
<content>Stage V GFR <15 Very Little GFR Left</content>
<content>ESRD GFR <15 on COMPLIANCE EXAMINER</content>
<content></content> Creatinine For GFR 0.97 mg/dL 0.55-1.30 Normal (applies to non -numeric results) [facility] ([facility]) Sodium Level 139 meq/L 136-145 Normal (applies to non-numeric res ults) [facility]) Potassium Serum 3.9 meq/L 3.5-5.1 Normal (applies to non-numeric results) [facility] ([facility]) Carbon Dioxide Level 25 meq/L 21-32 Normal (applies to non-num eri results) [facility]) Chloride Level 107 meq/L 98-107 Normal (applies to non-numeric r esults) [facility]) Calcium Level 8.8 mg/dL 8.5-10.1 Normal (applies to non-numeric re sults) [facility]) Anion Gap 7 meq/L 8-16 Below low normal [facility] ([facility]) ID Date Data Source [id number] 10/08/2020 01:35:00 PM EDT [facility] ([facility]) Name Value Range Interpretation Code Description Data Carolann rce(s) Supporting Document(s) Inr 0.90 Normal (applies to non-numeric resul ts) [facility] THERAPUTIC HUMAN INR VALUES INDICATIONS NORMAL RANGES PROPHYLAXIS/TREATMENT OF: VENOUS THROMBOSIS 2.0-3.0 PULMONARY EMBOLISM 2.0-3.0 PREVENTION OF SYSTEMIC EMBOLISM FROM: TISSUE HEART VALVES 2.0-3.0 ACUTE MYOCARDIAL INFARCTION 2.0-3.0 VALVULAR HEART DISEASE 2.0-3.0 ATRIAL FIBRILLATION 2.0-3.0 MECHANICAL VALVES(HIGH RISK) 2.5-3.5 RECURRENT MYOCARDIAL INFARCTION 2.5-3.5 Prothrombin Time 12.3 s 12.5-14.3 Normal (applies to non-numeric results) [facility] Partial Thromboplastin Time 20.8 s 24.2-38.5 Below low normal [facility]) ID Date Data Source [id number] 10/08/2020 01:35:00 PM EDT [facility]) Name Value Range Interpretation Code Description Data Carolann rce(s) Supporting Document(s) Hemoglobin 12.8 g/dL 12.0-15.5 Normal (applies to non-numeric resul ts) [facility] ([facility]) White Blood Count 10.0 10 4.0-10.0 Normal (applies to non-numeri c results) [facility] ([facility]) Red Blood Count 4.42 10 4.00-5.40 Normal (applies to non-numeric results) [facility] ([facility]) Mean Corpuscular Volume 89.8 fl 80.0-96.0 Normal ( applies to non-numeric results) [facility] ([facility]) Hematocrit 39.7 % 36.0-47.0 Normal (applies to non-numeric resul ts) [facility] Mean Corpuscular Hemoglobin 29.0 pg 27.0-33.0 Norm al (applies to non-numeric results) [facility] ([facility]) Mean Corpuscular HGB Conc 32.2 g/dL 32.0-36.5 Normal (applies to non-numeric results) [facility] ([facility]) Platelet Count, Automated 277 10 150-450 Normal (applies to non-numeric results) [facility] ([facility]) Red Cell Distribution Width 12.3 % 11.5-14.5 Norm al (applies to non-numeric results) [facility] Neutrophils % 62.6 % 36.0-66.0 Normal (applies to non-numeric re sults) [facility] ([facility]) Lymph % 28.5 % 24.0-44.0 Normal (applies to non-numeric resul ts) [facility] ([facility]) Baso % 0.7 % 0.0-1.0 Normal (applies to non-numeric resul ts) [facility] ([facility]) Eos % 1.9 % 0.0-3.0 Normal (applies to non-numeric resul ts) [facility] ([facility]) [place] % 5.9 % 2.0-8.0 Normal (applies to non-numeric resul ts) [facility] Nucleated Red Blood Cell % 0.0 % 0-0 Normal (applies to n on-numeric results) [facility] ([facility]) Immature Granulocyte % 0.4 % 0-3.0 Normal (applies to non-n umeric results) [facility] ([facility]) Lymph # 2.9 10 1.5-5.0 Normal (applies to non-numeric resul ts) [facility] ([facility]) Neutrophils # 6.3 10 1.5-8.5 Normal (applies to non-numeric re sults) [facility] ([facility]) Eos # 0.2 10 0.0-0.5 Normal (applies to non-numeric resul ts) [facility] ([facility]) [place] # 0.6 10 0.0-0.8 Normal (applies to non-numeric resul ts) [facility] ([facility]) Baso # 0.1 10 0.0-0.2 Normal (applies to non-numeric resul ts) [facility] ([facility]) ID Date Data Source [id number] 09/11/2020 09:35:00 AM EDT [facility] al DATE OF EXAM: 09/09/2020ate of Procedur e: 09/09/2020reoperative Diagnosis: Left cerebellar AVMPostoperative Diagnosis: Left cerebellar AVM Procedure(s):1. Diagnostic cerebral angiogram: - Left subclavian cervical (2D); Left vertebral cervical/cerebral (2D); Left SCA superselective microcatheter cerebral (2D); Right femoral runoff (2D)2. Left SCA branch to AVM Brevital testing (3mg IA and testing over 5 minutes)3. Left SCA branch to AVM embolization with [place] 18 liquid embolic agent4. Conscious sedation for 45 minutes5. Right femoral 6/7F Mynx Senior Oracle Developer closure device placed for arteriotomy closure Surgeon: Lexa Padilla MDAssistant: Shantelle Vivas RT Prior problems with sedation: NonePotential drug/sedative interactions: NoneAllergies: NKDAMallampati class IIASA class II Medications/Sedation: 3 mg of versed IV; 150 mcg of fentanyl IV; 4mg Zofran IV; 3mg Brevital IA to left SCA branch to AVM Indication: Mrs. Brea Encarnacion is a very pleasant 34 year-old female who was found to have a small left cerebellar AVM noted on MRA head which was done as part of workup for left face, arm and leg pain and numbness and which was thought to be associated with complicated migraines initially. She did have recurrence of the left sided numbness later in the day of the angiogram study that seemed to have subsided spontaneously. After discussing the risks, benefits, and alternatives of observation alone versus treatment options for the small left cerebellar AVM, and answering all of her questions and her family's questions to their satisfaction and understanding, she has decided to proceed with the endovascular intervention for Brevital testing and subsequent [place] liquid embolic material embolization of the AVM with the understanding that there is likely going to be staged embolization interventions and possibly follow up stereotactic radiosurgery and/or surgical resection if there is any residual AVM noted after all safe embolization has been completed. The risks, benefits and alternatives of this procedure were explained to the patient and her questions were answered to her satisfaction. She understands and agrees to proceed with the intervention. Written informed consent was obtained prior to proceeding with the procedure. Procedure details: The patient was properly identified by comparing the signed consent with the name [facility] to confirm the proper medical record number, date of , and patient name and when this was confirmed the patient was placed on the [employer] biplane angio table in supine position. The right groin site was prepped and draped in usual fashion and a timeout was performed, confirming again the correct patient and procedure being performed. Conscious sedation was administered and 10 cc of 2% lidocaine without epinephrine was injected into the right groin site around the femoral artery and an arteriotomy was performed using the modified Seldinger technique with a 5 Nauruan micropuncture kit. I then placed a 6 Nauruan sheath into the right femoral artery without any complications or difficulties. I then placed a 6 Nauruan MPC Envoy catheter connected to continuous heparinized saline flush over a glide wire to the aortic arch. I then accessed the left subclavian artery and performed a cervical diagnostic angiogram which demonstrates a normal left subclavian artery with normal arterial branching pattern and no hemodynamically significant focal stenosis or occlusion appreciated, with normal anterograde blood flow present. The left vertebral artery origin appears normal arising from the left subclavian artery as expected and without hemodynamically sign ificant stenosis or occlusion or evidence of dissection. I then selectively catheterized the left vertebral artery over a glidewire using roadmapping techniques under fluoroscopic guidance. I then performed a cervical and cerebral diagnostic angiogram from the left vertebral artery injection which demonstrates a normal and smooth appearing left vertebral artery cervical segment without hemodynamically significant stenosis, occlusion or evidence of dissection. The cerebral angiogram from the left vertebral artery injection shows a normal vertebrobasilar junction and normal distal arterial branching pattern seen without any evidence of intracranial aneurysms. There is early venous drainage from a small left cerebellar AVM nidus that is fed primarily from a left SCA branch. Superselective microcatheterization of the left SCA with cerebral angiogram runs shows about 2-3 large branches feeding the AVM, and the largest branch was targeted for this intervention. The Bend microcatheter was advanced into the largest of these feeding pedicles and this was confirmed with superselective microcatheter cerebral angiography. Brevital was injected into this branch as proximal as possible, total of 3mg IA, and subsequent neurological testing for 5 minutes after injection. She had no neurological symptoms after injection of the Brevital, so the microcatheter was advanced as close to the nidus as possible. The Bend microcatheter was then flushed with at least 0.23 mL of DMSO to clear the catheter of any ionic material, and [place] 18 Liquid Embolic agent was then injected under double negative roadmap imaging taking great care to avoid reflux of the [place] liquid embolic agent more proximal than the location of the Brevital testing injection site. The microcatheter was then removed from the patient completely and follow-up imaging in AP and lateral as well as 45 degree oblique projections show approximately 80-90% of the AVM had been embolized, and there is only minimal flow through one or two small remaining feeding pedicles. These feeding pedicles are probably accessible by endovascular means for additional embolization, but in order to reduce the probability of procedure related hemorr mook, we have determined that this AVM will be approached in a staged manner if more than one vessel is required for embolization of the AVM. Therefore, we concluded the procedure and the patient tolerated the procedure well. Final cerebral angiography did not show any evidence of contrast extravasation, distal thromboembolic events that were unintentional, dissection, or other complications as a direct result of this procedure. Approximately 80-90% of the flow through the left cerebellar AVM had been reduced with this embolization procedure. A final cervical angiogram showed no injury to the left vertebral artery as a result of this intervention. At the end of the procedure I then completely removed the catheter from the patient and performed a right femoral runoff to confirm that there were no complications at the femoral arteriotomy access site. I then placed a 6/7F Mynx Senior Oracle Developer closure device in the right femoral arteriotomy site without complications. The patient tolerated this procedure well without any complications. I was present for the duration of the procedure and I performed and/or directly supervised all critical components of the procedure. Total contrast: 48 cc of Omnipaque-300Total fluoro time: 10.5 minutesTotal fluoro dose: 1,506.2 mGy Angiographic interpretation:1. Left subclavian cervical run shows a normal left vertebral artery origin without evidence of stenosis, dissection, or other vascular lesions. There is anterograde blood flow and normal branching from the left subclavian artery without any subclavian stenosis. 2. Selective left vertebral artery injection in the cervical and cerebral views shows a normal and smooth appearing left vertebral artery cervical segment without hemodynamically significant stenosis, occlusion or evidence of dissection. The cerebral angiogram from the left vertebral artery injection shows a normal vertebrobasilar junction and normal distal arterial branching pattern seen without any evidence of intracranial aneurysms. There is early venous drainage from a small left cerebellar AVM nidus that is fed primarily from a left SCA branch. Superselective microcatheterization of the left SCA with cerebral angiogram runs shows about 2- 3 large branches feeding the AVM, and the largest branch was targeted for this intervention. A follow up cerebral angiogram run in AP and lateral as well as 45 degree oblique projections after [place] 18 Liquid Embolic agent embolization of the left SCA feeding pedicle to the AVM shows that approximately 80-90% of the AVM had been embolized, and there is only minimal flow through one or two small remaining feeding pedicles. Final cerebral angiography did not show any evidence of contrast extravasation, distal thromboembolic events that were unintentional, dissection, or other complications as a direct result of this procedure. Approximately 80-90% of the flow through the left cerebellar AVM had been reduced with this embolization procedure. A final cervical angiogram showed no injury to the left vertebral artery as a result of this intervention. 3. Right femoral runoff angiogram showed the arteriotomy access site located over the mid femoral head and there is no significant peripheral vascular disease, calcification, or stenosis. The sheath was inserted above the femoral bifurcation. Impression: Mrs. Brea Encarnacion had a successful left cerebellar AVM embolization with up to about 80-90% of the AVM embolized with [place] 18 embolization of a large feeding pedicle arising from the left SCA. There is still one or two smaller branches present that may also be accessible by endovascular means which will be targeted for a stage II embolization in the next 4-6 weeks. She will be observed in the ICU overnight with plans for likely discharge to home tomorrow if there are no complications. SBP target 90- 140mmHg. I relayed the results of this angiogram to the patient and to her mother over the phone at the end of the procedure, and I answered all of their questions to their satisfaction. They understand and agree with this plan.End of diagnostic report for accession: [id number] Interpreted: Lexa Padilla MDTranscribed: 09/09/2020 09:52 AMSigned: 09/11/2020 09:35 AM Lexa Padilla MD [facility] # [id number] BILL # [id number] Name Value Range Interpretation Code Description Data Carolann rce(s) Supporting Document(s) ID Date Data Source [id number] 09/09/2020 09:49:15 AM EDT Lab [facility] Name Value Range Interpretation Code Description Data Carolann rce(s) Supporting Document(s) URINE HCG (NEG) [facility] ID Date Data Source [id number] 09/04/2020 09:30:00 AM EDT [facility] ([facility]) Name Value Range Interpretation Code Description Data Carolann rce(s) Supporting Document(s) Laboratory test finding (navigational concept) Laboratory test result [facility] ([facility]) This nucleic acid amplification test was developed and its performance characteristics determined by [employer]. Nucleic acid amplification tests include RT- PCR [...] detected) result in this assay. Not Detected Laboratory test finding (navigational concept) Laboratory test result [facility] ([facility]) Performed at: [employer] [facility] [employer] [place] [address] [id number] Car Sealer: Christin Laurent PhD, Phone: [phone] Performed at: - [facility] [address] [id number] Car Sealer: Leslie Musa MD, Phone: [phone] Performed ID Date Data Source [id number] 09/04/2020 09:30:00 AM EDT [facility] Name Value Range Interpretation Code Description Data Carolann rce(s) Supporting Document(s) SARS coronavirus 2 RNA Not Detected [facility] This lab was ordered by [facility] and reported by [facility]. ID Date Data Source URINE TEST 09/02/2020 12:00:00 AM EDT eCW1 ([facility]) Name Value Range Interpretation Code Description Data Carolann rce(s) Supporting Document(s) NEGATIVE NEGATIVE URINE PREG TEST eCW1 ([facility]) ID Date Data Source UA URINALYSIS 09/02/2020 12:00:00 AM EDT eCW1 ([facility]) Name Value Range Interpretation Code Description Data Carolann rce(s) Supporting Document(s) UA URINALYSIS eCW1 ([facility]) ID Date Data Source PT-INR 09/02/2020 12:00:00 AM EDT eCW1 ([facility]) Name Value Range Interpretation Code Description Data Carolann rce(s) Supporting Document(s) Prothrombin time (PT) 12.2 12.5-14.3 PROTHROMBIN TI ME eCW1 ([facility]) INR in Platelet poor plasma by Coagulation assay 0.89 INR eCW1 ([facility]) ID Date Data Source Comprehensive Metabolic Profile (CMP) 09/02/2020 12:00:00 AM EDT eCW1 ([facility]) Name Value Range Interpretation Code Description Data Carolann rce(s) Supporting Document(s) 0.99 0.55-1.30 CREATININE FOR GFR eCW1 ([facility]) 89 70-100 GLUCOSE, FASTING eCW1 ([facility]) 15 7-18 BLOOD UREA NITROGEN eCW1 ([facility]) > 60.0 >60 GLOMERULAR FILTRATION RATE eCW 1 ([facility]) 106 98-107 CHLORIDE LEVEL eCW1 ([facility]) 4.1 3.5-5.1 POTASSIUM SERUM eCW1 ([facility]) 138 136-145 SODIUM LEVEL eCW1 ([facility]) 39 12-78 ALT/SGPT eCW1 ([facility]) 24 21-32 CARBON DIOXIDE LEVEL eCW1 ([facility] 1928[facility]) 9.2 8.5-10.1 CALCIUM LEVEL eCW1 ([facility]) 21 7-37 AST/SGOT eCW1 ([facility]) 7.6 6.4-8.2 TOTAL PROTEIN eCW1 ([facility]) 4.0 3.2-5.2 ALBUMIN eCW1 ([facility]) 0.2 0.2-1.0 BILIRUBIN,TOTAL eCW1 ([facility]) 71 45-117 ALKALINE PHOSPHATASE eCW1 ([facility]) 1.1 1.2-2.2 ALBUMIN/GLOBULIN RATIO eCW1 ([facility]) ID Date Data Source CBC with Differential 09/02/2020 12:00:00 AM EDT eCW1 ([facility]) Name Value Range Interpretation Code Description Data Carolann rce(s) Supporting Document(s) 13.7 12.0-15.5 HEMOGLOBIN eCW1 ([facility]) 4.64 4.00-5.40 RED BLOOD COUNT eCW1 ([facility]) 10.1 4.0-10.0 WHITE BLOOD COUNT eCW1 ([facility]) 42.0 36.0-47.0 HEMATOCRIT eCW1 ([facility]) 29.5 27.0-33.0 MEAN CORPUSCULAR HEMOGLOB IN eCW1 ([facility]) 90.5 80.0-96.0 MEAN CORPUSCULAR VOLUME e CW1 ([facility]) 32.6 32.0-36.5 MEAN CORPUSCULAR HGB CONC eCW1 ([facility]) 12.4 11.5-14.5 RED CELL DISTRIBUTION WID TH eCW1 ([facility]) 64.2 36.0-66.0 NEUTROPHILS % eCW1 ([facility]) 25.9 24.0-44.0 LYMPH % eCW1 ([facility]) 291 150-450 PLATELET COUNT, AUTOMATED eCW1 ([facility]) 6.5 1.5-8.5 NEUTROPHILS # eCW1 ([facility]) 6.8 2.0-8.0 MONO % eCW1 ([facility]) 0.8 0.0-1.0 BASO % eCW1 ([facility]) 1.8 0.0-3.0 EOS % eCW1 ([facility]) 0.1 0.0-0.2 BASO # eCW1 ([facility]) 0.2 0.0-0.5 EOS # eCW1 ([facility]) 0.7 0.0-0.8 MONO # eCW1 ([facility]) 2.6 1.5-5.0 LYMPH # eCW1 ([facility]) ID Date Data Source [id number] 08/15/2020 11:26:00 AM [facility] al DATE OF EXAM: 08/15/2020ate of Procedur e: 08/15/2020reoperative Diagnosis: Evaluate for left cerebellar AVMPostoperative Diagnosis: Evaluate for left cerebellar AVM Procedure(s):1. Diagnostic cerebral angiogram: - (2D); Right femoral runoff (2D)2. Conscious sedation for 21 minutes3. Right femoral 5/6F Mynx Senior Oracle Developer closure device placed for arteriotomy closure Surgeon: Lexa Padilla, BOBBIssistant: Jeramie Tran, RT Prior problems with sedation: NonePotential drug/sedative interactions: NoneAllergies: NKDA Mallampati class IIASA class II Medications/Sedation: 2 mg of versed IV; 100 mcg of fentanyl IV; 4mg Zofran IV Indication: Mrs. Brea Encarnacion is a very pleasant 34 year-old female who was referred by Dr. Echo Acuna for evaluation of a possible left cerebellar AVM which was found on workup of headaches and left face, arm and leg pain associated with the headache which seemed to have been exacerbated after she moved furniture all day in April 2020. She denies any new visual disturbances or tinnitus. A formal diagnostic cerebral angiogram study was recommended for further workup of the finding seen on the MRI/MRA studies. The risks, benefits and alternatives of this procedure were explained to the patient and her questions were answered to her satisfaction. She understands and agrees to proceed with the diagnostic cerebral angiogram. Written informed consent was obtained prior to proceeding with the angiogram. Procedure details: The patient was properly identified by comparing the signed consent with the [facility] to confirm the proper medical record number, date of , and patient name and when this was confirmed the patient was placed on the [employer] biplane angio table in supine position. The right groin site was prepped and draped in usual fashion and a timeout was performed, confirming again the correct patient and procedure being performed. Conscious sedation was administered and 10 cc of 2% lidocaine without epinephrine was injected into the right groin site around the femoral artery and an arteriotomy was performed using the modified Seldinger technique with a 5 Nauruan micropuncture kit. I then placed a 5 Nauruan sheath into the right femoral artery without any complications or difficulties. I then placed the 4 Nauruan angled glide catheter over a glide wire to the aortic arch and then removed the glide wire and double flushed the catheter by aspirating back with one saline syringe, and then flushing forward with clean heparinized saline syringe. I then accessed the the right common carotid artery and performed a cervical diagnostic angiogram which demonstrates a normal right carotid bifurcation without evidence of hemodynamically significant arterial stenosis, dissection or occlusion appreciated, with normal anterograde blood flow present. I then selectively catheterized the right internal carotid artery over a glidewire using roadmapping techniques under fluoroscopic guidance. I then performed a cerebral diagnostic angiogram from the right internal carotid artery injection which demonstrates normal filling of the right MCA and BELEN territories without evidence of intracranial aneurysms, early venous drainage, hemodynamically significant intracranial arterial stenosis or occlusion or significant vessel irregularity to clearly show vasospasm or vasculitis. There is no significant cross filling of contrast to the contralateral BELEN territory with no significant anterior communicating artery seen on this angiogram run. There is a very small right posterior communicating artery seen with no significant contribution to the posterior circulation. I then selectively catheterized the right external carotid artery over a glidewire using roadmapping techniques under fluoroscopic guidance. I then performed a cerebral diagnostic angiogram from t he right external carotid artery injection which demonstrates a normal right external carotid artery branching pattern without evidence of early venous drainage to clearly show an arteriovenous fistula or malformation and without any significant vascular irregularity to clearly show vasculitis. I then catheterized the left common carotid artery and performed a cervical diagnostic angiogram which demonstrates a normal left carotid bifurcation without evidence of hemodynamically significant arterial stenosis, dissection or occlusion appreciated, with normal anterograde blood flow present. I then selectively catheterized the left internal carotid artery over a glidewire using roadmapping techniques under fluoroscopic guidance. I then performed a cerebral diagnostic angiogram from the left internal carotid artery injection which demonstrates normal filling of the left MCA and BELEN territories without evidence of intracranial aneurysms, early venous drainage, hemodynamically significant intracranial arterial stenosis or occlusion or significant vessel irregularity to clearly show vasospasm or vasculitis. There is cross filling of contrast to the contralateral BELEN territory with a widely patent anterior communicating artery present. There is a moderate sized left posterior communicating artery seen with normal anterograde filling to the left DEVELOPER RELATIONS MANAGER territory. I then selectively catheterized the left external carotid artery over a glidewire using roadmapping techniques under fluoroscopic guidance. I then performed a cerebral diagnostic angiogram from the left external carotid artery injection wh ich demonstrates a normal left external carotid artery branching pattern without evidence of early venous drainage to clearly show an arteriovenous fistula or malformation and without any significant vascular irregularity to clearly show vasculitis. I then catheterized the left subclavian artery and performed a cervical diagnostic angiogram which demonstrates a normal left subclavian artery with normal arterial branching pattern and no hemodynamically significant focal stenosis or occlusion appreciated, with normal anterograde blood flow present. The left vertebral artery origin appears normal arising from the left subclavian artery as expected and without hemodynamically significant stenosis or occlusion or evidence of dissection. I then selectively catheterized the left vertebral artery over a glidewire using roadmapping techniques under fluoroscopic guidance. I then performed a cervical and cerebral diagnostic angiogram from the left vertebral artery injection which demonstrates a normal and smooth appearing left vertebral artery cervical segment without hemodynamically significant stenosis, occlusion or evidence of dissection. The cerebral angiogram from the left vertebral artery injection in AP and lateral as well as 45 degree oblique projections shows a normal vertebrobasilar junction and normal distal arterial branching pattern seen without any evidence of intracranial aneurysms, although there is early venous drainage through a small (<3cm diameter) AVM nidus that appears to be supplied almost exclusively by the left SCA, and drains almost exclusively into the transverse sinus. There is no obvious aneurysm associated with the AVM nidus. At the end of the procedure I then completely removed the catheter from the patient and performed a right femoral runoff to confirm that there were no complications at the femoral arteriotomy access site. I then placed a 5/6F [employer] Senior [employer] Developer closure device in the right femoral arteriotomy site without complications. The patient tolerated this procedure well. I was present for the duration of the procedure and I performed and/or directly supervised all critical components of the procedure. Total contrast: 40 cc of Omnipaque-300Total fluoro time: 3.2 minutesTotal fluoro dose: 538.22 mGy Angiographic interpretation:1. Right common carotid cervical angiography shows a normal right carotid bifurcation without evidence of hemodynamically significant arterial stenosis, dissection or occlusion appreciated, with normal anterograde blood flow present. 2. Selective right internal carotid artery catheterization with cerebral views shows normal filling of the right MCA and BELEN territories without evidence of intracranial aneurysms, early venous drainage, hemodynamically significant intracranial arterial stenosis or occlusion or significant vessel irregularity to clearly show vasospasm or vasculitis. There is no significant cross filling of contrast to the contralateral BELEN territory with no significant anterior communicating artery seen on this angiogram run. There is a very small right posterior communicating artery seen with no significant contribution to the posterior circulation. 3. Selective right external carotid artery catheterization with cerebral views show a normal right external carotid artery branching pattern without evidence of early venous drainage to clearly show an arteriovenous fistula or malformation and without any significant vascular irregularity to clearly show vasculitis. 4. Left common carotid cervical angiography shows a normal carotid bifurcation without evidence of stenosis, dissection, or other vascular abnormalities, and with normal anterograde blood flow. 5. Selective left internal carotid artery catheterization with cerebral views shows normal filling of the left MCA and BELEN territories without evidence of intracranial aneurysms, early venous drainage, hemodynamically significant intracranial arterial stenosis or occlusion or significant vessel irregularity to clearly show vasospasm or vasculitis. There is cross filling of contrast to the contralateral BELEN territory with a widely patent anterior communicating artery present. There is a moderate sized left posterior communicating artery seen with normal anterograde filling to the left DEVELOPER RELATIONS MANAGER territory. 6. Selective left external carotid artery catheterization with cerebral views shows normal branching pattern of the left external carotid artery and no evidence of early venous drainage or focal stenoses, or other evidence of vasculitis. 7. Left subclavian cervical run shows a normal left vertebral artery origin without evidence of stenosis, dissection, or other vascular lesions. There is anterograde blood flow and normal branching from the left subclavian artery without any subclavian stenosis. 8. Selective left vertebral artery injection in the cervical and cerebral views shows a normal and smooth appearing left vertebral artery cervical segment without hemodynamically significant stenosis, occlusion or evidence of dissection. The cerebral angiogram from the left vertebral artery injection in AP and lateral as well as 45 degree oblique projections shows a normal vertebrobasilar junction and normal distal arterial branching pattern seen without any evidence of intracranial aneurysms, although there is early venous drainage through a small (<3cm diameter) AVM nidus that appears to be supplied almost exclusively by the left SCA, and drains almost exclusively into the transverse sinus. There is no obvious aneurysm associated with the AVM nidus. 9. Right femoral runoff angiogram showed the arteriotomy access site located over the mid femoral head and there is no significant peripheral vascular disease, calcification, or stenosis. The sheath was inserted above the femoral bifurcation. Impression: Mrs. Brea Encarnacion had a diagnostic cerebral angiogram study which confirms the presence of a small left cerebellar AVM which appears to be supplied almost exclusively by the distal end of the left SCA, and there appears to be mostly superficial drainage to the transverse sinus. Spetzler-Sandeep grade I AVM. It would be reasonable to discuss treatment of this AVM with endovascular embolization and if there is any residual then stereotactic radiosurgery would be recommended. Surgical resection of this lesion is also an option, although because it extends fairly deep toward the cerebellar nuclei, that may have a potentially increased risk of permanent ataxia associated with that treatment option. We will continue the discussion next week in the clinic regarding the ARUBA trial and how it applies to her case and that in this case I would still recommend treatment as described above. I relayed the results of this angiogram to the patient and to her mother over the phone at the end of the procedure, and I answered all of their questions to their satisfaction. They understand and agree with this plan.End of diagnostic report for accession: [id number] Interpreted: Lexa Padilla MDTranscribed: 08/15/2020 10:34 AMSigned: 08/15/2020 11:26 AM Lexa Padilla MD [facility] # [id number] BILL # [id number] NIRR Name Value Range Interpretation Code Description Data Carolann rce(s) Supporting Document(s) ID Date Data Source [id number] 08/15/2020 09:28:48 AM EST [facility] Name Value Range Interpretation Code Description Data Carolann rce(s) Supporting Document(s) POC GLUCOSE 96 mg/dL (70-99) [facility] PERFORMED BY CLINICAL STAFF ID Date Data Source [id number] 08/10/2020 10:00:00 AM EST [facility] ([facility]) Name Value Range Interpretation Code Description Data Carolann rce(s) Supporting Document(s) Laboratory test finding (navigational concept) Laboratory test result [facility] ([facility]) This nucleic acid amplification test was developed and its performance characteristics determined by [facility]. Nucleic acid amplification tests include RT- PCR [...] detected) result in this assay. Performed at: [address] [id number] Car Sealer: Leslie Musa MD, Phone: [phone] Not Detected ID Date Data Source [id number] 08/10/2020 10:00:00 AM EST [facility] Name Value Range Interpretation Code Description Data Carolann rce(s) Supporting Document(s) SARS coronavirus 2 RNA Not Detected [facility] This lab was ordered by [facility] and reported by [facility]. ID Date Data Source [id number] 08/07/2020 02:59:00 PM EST [facility] ([facility]) Name Value Range Interpretation Code Description Data Carolann rce(s) Supporting Document(s) Venipuncture Laboratory test result MEDE NT ([facility]) aPTT in Platelet poor plasma by Coagulation assay 29.1 Sec 24.7-34. 7 [facility] ([facility]) Note normal range update due to new reag ent lot 01/25/2020 ID Date Data Source [id number] 08/07/2020 02:59:00 PM EST [facility] ([facility]) Name Value Range Interpretation Code Description Data Carolann rce(s) Supporting Document(s) Prothrombin time (PT) 12.0 Sec 10.9-14.5 [facility] ( [facility]) INR in Platelet poor plasma by Coagulation assay 0.9 [facility] ([facility]) [facility] and transmitted [address] * INR Interpretation : . Recommended Theraputic Range: 2.0 - 3.0 . For treatment/prophylaxis . of venous thrombosis, . prevention of embolism. . . ID Date Data Source [id number] 08/07/2020 02:59:00 PM EST [facility]) Name Value Range Interpretation Code Description Data [facility] rce(s) Supporting Document(s) Choriogonadotropin.beta subunit [Moles/volume] in Seru m or Plasma Laboratory test result [facility] ([facility]) HCG Interpretation: Less Than 5.0 miu/ml - Either no HCG or too low to be clinically significant. 5.0 - 25.0 miu/ml - Equivocal result. Sh ould be repeated after 48 hours. A test result less than 25.0 should be interpreted in conjunction with other laboratory data available to the physician. Greater than 25.0 miu/ml - Clinically significant. ID Date Data Source [id number] 08/07/2020 02:59:00 PM EST [facility] ([facility]) Name Value Range Interpretation Code Description Data [facility] rce(s) Supporting Document(s) WBC. 12.60 x10E3/uL 4.2-12.0 Above high normal [facility] ([facility]) Hematocrit [Volume Fraction] of Blood by Automated count 42.9 % 3 6-47 [facility] ([facility]) Hemoglobin [Mass/volume] in Blood 14.0 g/dL 12.0-16.0 [facility] ([facility]) Erythrocytes [#/volume] in Blood by Automated count 4.70 x10E6/uL 3.9 -5.4 [facility] ([facility]) MCH 29.9 pg 27-33 [facility]) MCV 91.3 fL 80-98 [facility]) RDW 12.9 % 11.2-15.2 [facility] ([facility]) MCHC 32.7 g/dL 32-36 [facility]) Platelets [#/volume] in Blood by Automated count 280 x10E3/uL 135-420 [facility] ([facility]) % [place] 72.1 % 41.0-80.0 [facility]) MPV 7.2 fL 7.0-12.3 [facility] ([facility]) Eosinophils [#/volume] in Blood by Automated count 1.2 % 0.0-8.0 [facility] ([facility]) %Lym 22.2 % 10.0-45.2 [facility]) %[place] 4.1 % 2.0-13.0 [facility]) %Baso 0.5 % 0.0-3.0 [facility]) Neut 9.1 x10E3/uL 2.0-8.1 Above high normal [facility] ([facility]) [place] 0.5 x10E3/uL 0.0-1.0 [facility]) Lymp 2.8 x10E3/uL 0.6-3.1 [facility]) Baso 0.1 x10E3/uL 0.0-0.2 [facility]) Eos 0.2 x10E3/uL 0.0-0.6 [facility]) ID Date Data Source [id number] 08/07/2020 02:59:00 PM EST [facility] ([facility]) Name Value Range Interpretation Code Description Data Carolann rce(s) Supporting Document(s) Urea nitrogen [Moles/volume] in Serum or Plasma 13 mg/dL 6-20 [facility] ([facility]) Glucose [Mass/volume] in Serum or Plasma 91 mg/dL 74-106 [facility] ([facility]) [place] [employer] (ADA) Recommended Range is 65-99 mg/dL Sodium [Moles/volume] in Serum or Plasma 137 mmol/L 136-145 [facility] ([facility]) Creatinine [Mass/volume] in Serum or Plasma 1.0 mg/dL 0.5-1.3 [facility] ([facility]) Chloride [Moles/volume] in Serum or Plasma 104 mmol/L 98-107 [facility] ([facility]) Carbon dioxide, total [Moles/volume] in Serum or Plasma 26 meq/L 20 -31 [facility] ([facility]) Potassium [Moles/volume] in Serum or Plasma 4.1 mmol/L 3.5-5.3 [facility] ([facility]) eGFR-female 63 mL/m/1.73m [facility] ([facility]) Anion Gap 7 mmol/L 7-16 [facility] ([facility]) eGFR-Aa female 76 mL/m/1.73m [facility] ([facility] use [facility]) <content>Normal Kidney Function or Mild Disease GFR >59 mL/min/1.73m2</content>
<content>Chronic Kidney Disease GFR 15-59 mL/min/1.73m2</content>
<content>Renal Failure GFR <15 mL/min/1.73m2</content>
<content></content> Calcium [Mass/volume] in Serum or Plasma 8.9 mg/dL 8.9-10.5 [facility] ([facility]) ID Date Data Source [id number] 05/22/2020 12:00:00 AM EST [facility] Name Value Range Interpretation Code Description Data Carolann rce(s) Supporting Document(s) 2019-nCoV RNA XXX REYNALDO+probe-Imp [facility] This lab was ordered by [facility] and reported by [employer] Procedure Social History Code Duration Value Status Description Data Source(s ) Smoking 04/02/2021 12:00:00 AM EDT Current Smoker completed Curre nt Smoker [facility] Smoking 04/02/2021 12:00:00 AM EDT Current Smoker completed Curre nt Smoker eCW1 ([facility]) Smoking 03/12/2021 12:00:00 AM EDT Patient is a former smoker completed Patient is a former smoker [facility] Smoking 02/26/2021 12:00:00 AM EDT Current Smoker completed Curre nt Smoker [facility]1 [facility]) Smoking 02/26/2021 12:00:00 AM EDT Current Smoker completed Curre nt Smoker eCW1 ([facility]) Smoking 02/26/2021 12:00:00 AM EDT Current Smoker completed Curre nt Smoker eCW1 ([facility]) Smoking 02/26/2021 12:00:00 AM EDT Current Smoker completed Curre nt Smoker eCW1 ([facility]) Smoking 02/26/2021 12:00:00 AM EDT Current Smoker completed Curre nt Smoker eCW1 ([facility]) Smoking 02/26/2021 12:00:00 AM EDT Current Smoker completed Curre nt Smoker eCW1 ([facility]) Smoking 02/26/2021 12:00:00 AM EDT Current Smoker completed Curre nt Smoker eCW1 ([facility]) Smoking 02/26/2021 12:00:00 AM EDT Current Smoker completed Curre nt Smoker eCW1 ([facility]) Smoking 02/26/2021 12:00:00 AM EDT Current Smoker completed Curre nt Smoker eCW1 ([facility]) Smoking 12/31/2020 12:00:00 AM EDT Patient is a former smoker completed Patient is a former smoker [facility] ([facility]) Smoking 12/26/2020 12:00:00 AM EDT Current Smoker completed Curre nt Smoker eCW1 ([facility]) Smoking 12/26/2020 12:00:00 AM EDT Current Smoker completed Curre nt Smoker eCW1 ([facility]) Smoking 12/26/2020 12:00:00 AM EDT Current Smoker completed Curre nt Smoker eCW1 ([facility]) Smoking 12/26/2020 12:00:00 AM EDT Current Smoker completed Curre nt Smoker eCW1 ([facility]) Smoking 12/26/2020 12:00:00 AM EDT Current Smoker completed Curre nt Smoker eCW1 ([facility]) Smoking 12/26/2020 12:00:00 AM EDT Current Smoker completed Curre nt Smoker eCW1 ([facility]) Smoking 12/26/2020 12:00:00 AM EDT Current Smoker completed Curre nt Smoker eCW1 ([facility]) Smoking 12/26/2020 12:00:00 AM EDT Current Smoker completed Curre nt Smoker eCW1 ([facility]) Smoking 12/26/2020 12:00:00 AM EDT Current Smoker completed Curre nt Smoker eCW1 ([facility]) Smoking 12/26/2020 12:00:00 AM EDT Current Smoker completed Curre nt Smoker eCW1 ([facility]) Smoking 12/02/2020 12:00:00 AM EDT Current Smoker completed Curre nt Smoker eCW1 ([facility]) Smoking 12/02/2020 12:00:00 AM EDT Current Smoker completed Curre nt Smoker eCW1 ([facility]) Smoking 12/02/2020 12:00:00 AM EDT Current Smoker completed Curre nt Smoker eCW1 ([facility]) Smoking 12/02/2020 12:00:00 AM EDT Current Smoker completed Curre nt Smoker eCW1 ([facility]) Smoking 12/02/2020 12:00:00 AM EDT Current Smoker completed Curre nt Smoker eCW1 ([facility]) Smoking 12/02/2020 12:00:00 AM EDT Current Smoker completed Curre nt Smoker eCW1 ([facility]) Smoking 12/02/2020 12:00:00 AM EDT Current Smoker completed Curre nt Smoker eCW1 ([facility]) Smoking 11/16/2020 05:16:00 AM EDT Former Smoker completed Former Smoker [facility] Smoking 11/01/2020 12:00:00 AM EDT Current Smoker completed Curre nt Smoker eCW1 ([facility]) Smoking 11/01/2020 12:00:00 AM EDT Current Smoker completed Curre nt Smoker eCW1 ([facility]) Smoking 11/01/2020 12:00:00 AM EDT Current Smoker completed Curre nt Smoker eCW1 ([facility]) Smoking 11/01/2020 12:00:00 AM EDT Current Smoker completed Curre nt Smoker eCW1 ([facility]) Smoking 11/01/2020 12:00:00 AM EDT Current Smoker completed Curre nt Smoker eCW1 ([facility]) Smoking 11/01/2020 12:00:00 AM EDT Current Smoker completed Curre nt Smoker eCW1 ([facility]) Smoking 11/01/2020 12:00:00 AM EDT Current Smoker completed Curre nt Smoker eCW1 ([facility]) Smoking 11/01/2020 12:00:00 AM EDT Current Smoker completed Curre nt Smoker eCW1 ([facility]) Smoking 11/01/2020 12:00:00 AM EDT Current Smoker completed Curre nt Smoker eCW1 ([facility]) Smoking 10/31/2020 12:00:00 AM EDT Current Smoker completed Curre nt Smoker eCW1 ([facility]) Smoking 10/25/2020 01:59:00 PM EDT Daily Smoker completed Daily S [facility] Smoking 09/09/2020 11:42:00 AM EDT Daily Smoker completed Daily S moker [facility] Smoking 09/02/2020 12:00:00 AM EDT Current Smoker completed Curre nt Smoker eCW1 ([facility]) Smoking 09/02/2020 12:00:00 AM EDT Current Smoker completed Curre nt Smoker eCW1 ([facility]) Smoking 09/02/2020 12:00:00 AM EDT Current Smoker completed Curre nt Smoker eCW1 ([facility]) Smoking 09/02/2020 12:00:00 AM EDT Current Smoker completed Curre nt Smoker eCW1 ([facility]) Smoking 09/02/2020 12:00:00 AM EDT Current Smoker completed Curre nt Smoker eCW1 ([facility]) Smoking 09/02/2020 12:00:00 AM EDT Current Smoker completed Curre nt Smoker eCW1 ([facility]) Smoking 09/02/2020 12:00:00 AM EDT Current Smoker completed Curre nt Smoker eCW1 ([facility]) Smoking 09/02/2020 12:00:00 AM EDT Current Smoker completed Curre nt Smoker eCW1 ([facility]) 08/07/2020 12:00:00 AM EST Patient is a current smoker, smokes every day completed Patient is a current smoker, smokes every day [facility] ( [facility]) Vital Signs ID Date Data Source UNK Name Value Range Interpretation Code Description Data Source(s) Body weight 267 [lb_av] 267 [lb_av] eCW1 ([facility]) Body weight 121.11 kg 121.11 kg eCW1 ([facility]) Body height [in_i] eCW1 ([facility]) Body mass index (BMI) [Ratio] 45.83 kg/m2 45.83 kg/m2 [facility]) Heart rate 102 /min 102 /min eCW1 ([facility]) Respiratory rate 18 /min 18 /min eCW1 ([facility]) Body temperature 98.6 [degF] 98.6 [degF] eCW1 ( [facility]) Systolic blood pressure 137 mm[Hg] 137 mm[Hg] e CW1 ([facility]) Diastolic blood pressure 72 mm[Hg] 72 mm[Hg] eCW1 [facility]) [place] body weight 120 [lb_av] 120 [lb_av] MEDEN T ([facility], ) Body weight 120.658 kg 120.658 kg [facility] ([facility] ) Body surface area Derived from formula 2.21 m2 2.21 m2 [facility], ) Systolic blood pressure 128 mm[Hg] 128 mm[Hg] M EDENT ([facility], ) Diastolic blood pressure 80 mm[Hg] 80 mm[Hg] [facility] ([facility], ) Heart rate 119 /min 119 /min [facility] ([facility], ) Oxygen saturation in Arterial blood by Pulse oximetry 97 % 97 % [facility], ) Body height 64 [in_i] 64 [in_i] [facility] 5'4" Body weight 266.00 [lb_av] 266.00 [lb_av] MEDEN T ([facility], ) Body mass index (BMI) [Ratio] 45.7 kg/m2 45.7 k g/m2 [facility] ([facility]) Diastolic blood pressure 76 mm[Hg] 76 mm[Hg] [facility] ([facility]) Body height 64 [in_i] 64 [in_i] [facility] ([facility]) 5'4" Body mass index (BMI) [Ratio] 45.7 kg/m2 45.7 k g/m2 [facility] ([facility]) Systolic blood pressure 122 mm[Hg] 122 mm[Hg] M EDENT ([facility]) Heart rate 93 /min 93 /min [facility] ([facility]) Oxygen saturation in Arterial blood by Pulse oximetry 96 % 96 % [facility] ([facility]) Body weight 266.00 [lb_av] 266.00 [lb_av] MED[facility] T ([facility]) [place] body weight 120 [lb_av] 120 [lb_av] [facility] T ([facility]) Body weight 120.658 kg 120.658 kg [facility] ([facility]) Body surface area Derived from formula 2.21 m2 2.21 m2 [facility] ([facility]) [place] body weight 120 [lb_av] 120 [lb_av] MED[facility] T ([facility]) Respiratory rate 12 /min 12 /min [facility] ( [facility]) Body height 64 [in_i] 64 [in_i] [facility] ([facility]) 5'4" Body weight 210.00 [lb_av] 210.00 [lb_av] [facility] T ([facility]) Body mass index (BMI) [Ratio] 36.0 kg/m2 36.0 k g/m2 [facility] ([facility]) Diastolic blood pressure 79 mm[Hg] 79 mm[Hg] eCW1 [facility] Body weight 264 [lb_av] 264 [lb_av] eCW1 ([facility]) Body weight 119.75 kg 119.75 kg eCW1 ([facility]) Body height [in_i] eCW1 ([facility]) Body mass index (BMI) [Ratio] 45.31 kg/m2 45.31 kg/m2 [facility]CW1 [facility]) Heart rate 100 /min 100 /min eCW1 ([facility]) Respiratory rate 18 /min 18 /min eCW1 ([facility]) Body temperature 98.3 [degF] 98.3 [degF] [facility]CW1 ( [facility]) Systolic blood pressure 104 mm[Hg] 104 mm[Hg] e CW1 ([facility]) Body weight 264.6 [lb_av] 264.6 [lb_av] eCW1 ([facility]) Body weight 120.02 kg 120.02 kg eCW1 ([facility]) Body height [in_i] eCW1 ([facility]) Body mass index (BMI) [Ratio] 45.41 kg/m2 45.41 kg/m2 eCW1 [facility]) Heart rate 117 /min 117 /min eCW1 ([facility]) Respiratory rate 18 /min 18 /min eCW1 ([facility]) Body temperature 98.0 [degF] 98.0 [degF] eCW1 ( [facility]) Systolic blood pressure 132 mm[Hg] 132 mm[Hg] e CW1 ([facility]) Diastolic blood pressure 86 mm[Hg] 86 mm[Hg] eCW1 ([facility]) Body weight 249.4 [lb_av] 249.4 [lb_av] eCW1 ([facility]) Body height [in_i] eCW1 ([facility]) Body mass index (BMI) [Ratio] 42.80 kg/m2 42.80 kg/m2 eCW1 [facility]) Heart rate 104 /min 104 /min eCW1 ([facility]) Respiratory rate 18 /min 18 /min eCW1 ([facility]) Body temperature 97.2 [degF] 97.2 [degF] eCW1 ( [facility]) Systolic blood pressure 118 mm[Hg] 118 mm[Hg] e CW1 ([facility]) Diastolic blood pressure 76 mm[Hg] 76 mm[Hg] eCW1 ([facility]) Body weight 247.6 [lb_av] 247.6 [lb_av] eCW1 ([facility]) Body height [in_i] eCW1 ([facility]) Body mass index (BMI) [Ratio] 42.50 kg/m2 42.50 kg/m2 eCW1 [facility]) Heart rate 110 /min 110 /min eCW1 ([facility]) Respiratory rate 18 /min 18 /min eCW1 ([facility]) Body temperature 97.5 [degF] 97.5 [degF] eCW1 ( [facility]) Systolic blood pressure 126 mm[Hg] 126 mm[Hg] e CW1 ([facility]) Diastolic blood pressure 74 mm[Hg] 74 mm[Hg] eCW1 [facility]) Heart rate 109 /min 109 /min [facility] ([facility]) Body temperature 98.6 [degF] 98.6 [degF] [facility] ([facility]) Systolic blood pressure 130 mm[Hg] 130 mm[Hg] M EDENT ([facility]) Diastolic blood pressure 86 mm[Hg] 86 mm[Hg] [facility] ([facility]) Body height 64.75 [in_i] 64.75 [in_i] [facility] ([facility] 5'4.75" Body weight 245.00 [lb_av] 245.00 [lb_av] MEDEN T ([facility]) Body mass index (BMI) [Ratio] 41.1 kg/m2 41.1 k g/m2 [facility] ([facility]) Body temperature 37.0 [place] 37.0 Sow[place]a [facility] ( [facility]) Respiratory rate 12 /min 12 /min MEDENT ( [facility], ) Body mass index (BMI) [Ratio] 36.0 kg/m2 36.0 k g/m2 MEDENT ([facility], ) Neola body weight 120 [lb_av] 120 [lb_av] MEDEN T ([facility], ) Body height 64 [in_i] 64 [in_i] TAYLER ([facility], ) 5'4" Body weight 210.00 [lb_av] 210.00 [lb_av] MELO Guzmán ([facility], ) Systolic blood pressure 125 mm[Hg] Normal (applies t o non-numeric results) 125 mm[Hg] [facility] Diastolic blood pressure 86 mm[Hg] Normal (applies to non-numeric results) 86 mm[Hg] [facility] Heart rate 88 min Normal (applies to non-numeric resul ts) [address] [facility] Deprecated Oxygen saturation in Capillary blood by Oximetry 95 % Normal (applies to non-numeric results) 95 % [facility] Respiratory rate 20 min Normal (applies to non-numeric results) [address] [facility] Body temperature 36.9 sowmya Normal (applies to non-numeric results) 36.[address] [facility] Body height 167.11266263680222 cm Normal (applies to non-numeric results) [id number] [facility] Body weight Measured 108.6 kg Normal (applies to n on-numeric results) 108.[address] [facility] Body weight 223.4 [lb_av] 223.4 [lb_av] eCW1 ([facility]) Body height [in_i] eCW1 ([facility]) Body mass index (BMI) [Ratio] 38.34 kg/m2 38.34 kg/m2 W1 ([facility]) Heart rate 97 /min 97 /min W1 ([facility]) Respiratory rate 18 /min 18 /min W1 ([facility]) Body temperature 99.5 [degF] 99.5 [degF] eCW1 ( [facility]) Systolic blood pressure 116 mm[Hg] 116 mm[Hg] e CW1 ([facility]) Diastolic blood pressure 86 mm[Hg] 86 mm[Hg] eCW1 ([facility]) Deprecated Oxygen saturation in Capillary blood by Oximetry 96 % Normal (applies to non-numeric results) 96 % [facility] Body weight Measured 105.1 kg Normal (applies to n on-numeric results) 105.[address] [facility] Systolic blood pressure 110 mm[Hg] Normal (applies t o non-numeric results) 110 mm[Hg] [facility] Diastolic blood pressure 72 mm[Hg] Normal (applies to non-numeric results) 72 mm[Hg] [facility] Heart rate 102 min Normal (applies to non-numeric resul ts) [address] [facility] Respiratory rate 16 min Normal (applies to non-numeric results) [address] [facility] Body temperature 37.4 sowmya Normal (applies to non-numeric results) 37.[address] [facility] Body mass index (BMI) [Ratio] 33.16 kg/m2 No rmal (applies to non-numeric results) 33.16 kg/m2 [facility] Body height 167.37746615501912 cm Normal (applies to non-numeric results) 167.58905971815727 cm [facility] Heart rate 67 min Normal (applies to non-numeric resul ts) [address] [facility] Respiratory rate 16 min Normal (applies to non-numeric results) [address] [facility] Body temperature 36.7 sowmya Normal (applies to non-numeric results) 36.[address] [facility] Deprecated Oxygen saturation in Capillary blood by Oximetry 98 % Normal (applies to non-numeric results) 98 % [facility] Body mass index (BMI) [Ratio] 35.23 kg/m2 No rmal (applies to non-numeric results) 35.23 kg/m2 [facility] Body height 167.38697541244667 cm Normal (applies to non-numeric results) 167.98131036699400 cm [facility] Body weight Measured 99 kg Normal (applies to non-num eri results) [address] [facility] Body weight 218 [lb_av] 218 [lb_av] eCW1 ([facility]) Body height [in_i] eCW1 ([facility]) Body mass index (BMI) [Ratio] 37.42 kg/m2 37.42 kg/m2 eCW1 ([facility]) Heart rate 80 /min 80 /min eCW1 ([facility]) Respiratory rate 18 /min 18 /min eCW1 ([facility]) Body temperature 98.5 [degF] 98.5 [degF] eCW1 ( [facility]) Systolic blood pressure 122 mm[Hg] 122 mm[Hg] e CW1 ([facility]) Diastolic blood pressure 84 mm[Hg] 84 mm[Hg] eCW1 ([facility]) Respiratory rate 12 /min 12 /min MEDENT ( [facility]) Body height 64 [in_i] 64 [in_i] MEDENT ([facility]) 5'4" Body weight 210.00 [lb_av] 210.00 [lb_av] MEDEN T ([facility]) Body mass index (BMI) [Ratio] 36.0 kg/m2 36.0 k g/m2 MEDENT ([facility]) [place] body weight 120 [lb_av] 120 [lb_av] MEDEN T ([facility]) Body height 64.75 [in_i] 64.75 [in_i] MEDENT ([facility]) 5'4.75" Systolic blood pressure 126 mm[Hg] 126 mm[Hg] M EDENT ([facility]) Heart rate 99 /min 99 /min MEDENT ([facility]) Body temperature 98.0 [degF] 98.0 [degF] MEDENT ([facility]) Body temperature 36.7 Sowmya 36.7 Sowmya MEDENT ( [facility]) Body weight 215.00 [lb_av] 215.00 [lb_av] MEDEN T ([facility]) Body mass index (BMI) [Ratio] 36.1 kg/m2 36.1 k g/m2 MEDENT ([facility]) Diastolic blood pressure 92 mm[Hg] 92 mm[Hg] MEDENT ([facility]) Respiratory rate 12 /min 12 /min MEDENT ( [facility]) Body height 64 [in_i] 64 [in_i] MEDENT ([facility]) 5'4" Body weight 210.00 [lb_av] 210.00 [lb_av] MEDEN T ([facility]) Body mass index (BMI) [Ratio] 36.0 kg/m2 36.0 k g/m2 MEDENT ([facility]) [place] body weight 120 [lb_av] 120 [lb_av] MEDEN T ([facility]) Patient Treatment Plan of Care Planned Activity Planned Date Details Description Data Source (s) gabapentin 400 MG Oral Capsule 04/02/2021 12:00:00 AM EDT eCW1 [facility]) gabapentin 400 MG Oral Capsule 04/02/2021 12:00:00 AM EDT eCW1 ([facility]) Amphetamine aspartate 5 MG / Amphetamine Sulfate 5 MG / Dextroamphetamine saccharate 5 MG / Dextroamphetamine Sulfate 5 MG Oral Tablet [Adderall] 03/17/2021 12:00:00 AM EDT eCW1 ([facility]) Amphetamine aspartate 5 MG / Amphetamine Sulfate 5 MG / Dextroamphetamine saccharate 5 MG / Dextroamphetamine Sulfate 5 MG Oral Tablet [Adderall] 03/17/2021 12:00:00 AM EDT eCW1 ([facility]) tramadol hydrochloride 50 MG Oral Tablet 03/05/2021 12:00:00 AM EDT eCW1 ([facility]) tramadol hydrochloride 50 MG Oral Tablet 03/05/2021 12:00:00 AM EDT eCW1 ([facility]) tramadol hydrochloride 50 MG Oral Tablet 03/05/2021 12:00:00 AM EDT eCW1 ([facility]) tramadol hydrochloride 50 MG Oral Tablet 03/05/2021 12:00:00 AM EDT eCW1 ([facility]) tramadol hydrochloride 50 MG Oral Tablet 03/05/2021 12:00:00 AM EDT eCW1 ([facility]) tramadol hydrochloride 50 MG Oral Tablet 03/05/2021 12:00:00 AM EDT eCW1 ([facility]) tramadol hydrochloride 50 MG Oral Tablet 03/05/2021 12:00:00 AM EDT eCW1 ([facility]) 168 HR Buprenorphine 0.005 MG/HR Transdermal Patch [Bu Trans] 03/03/2021 12:00:00 AM EDT eCW1 ([facility]) 168 HR Buprenorphine 0.005 MG/HR Transdermal Patch [Bu Trans] 03/03/2021 12:00:00 AM EDT eCW1 ([facility]) 168 HR Buprenorphine 0.005 MG/HR Transdermal Patch [Bu Trans] 03/03/2021 12:00:00 AM EDT eCW1 ([facility]) 168 HR Buprenorphine 0.005 MG/HR Transdermal Patch [Bu Trans] 03/03/2021 12:00:00 AM EDT eCW1 ([facility]) 168 HR Buprenorphine 0.005 MG/HR Transdermal Patch [Bu Trans] 03/03/2021 12:00:00 AM EDT eCW1 ([facility]) 168 HR Buprenorphine 0.005 MG/HR Transdermal Patch [Bu Trans] 03/03/2021 12:00:00 AM EDT eCW1 ([facility]) 168 HR Buprenorphine 0.005 MG/HR Transdermal Patch [Bu Trans] 03/03/2021 12:00:00 AM EDT eCW1 ([facility]) 168 HR Buprenorphine 0.005 MG/HR Transdermal Patch [Bu Trans] 03/03/2021 12:00:00 AM EDT eCW1 ([facility]) Triamcinolone Acetonide 0.25 MG/ML Topical Cream 02/26/2021 12:00:0 0 AM EDT eCW1 ([facility]) [place] 75 MCG 02/26/2021 12:00:00 AM EDT eCW1 ([facility]) Triamcinolone Acetonide 0.25 MG/ML Topical Cream 02/26/2021 12:00:0 0 AM EDT eCW1 ([facility]) [place] 75 MCG 02/26/2021 12:00:00 AM EDT eCW1 ([facility]) [place] 75 MCG 02/26/2021 12:00:00 AM EDT eCW1 ([facility]) Triamcinolone Acetonide 0.25 MG/ML Topical Cream 02/26/2021 12:00:0 0 AM EDT eCW1 ([facility]) [place] 75 MCG 02/26/2021 12:00:00 AM EDT eCW1 ([facility]) Triamcinolone Acetonide 0.25 MG/ML Topical Cream 02/26/2021 12:00:0 0 AM EDT eCW1 ([facility]) [place] 75 MCG 02/26/2021 12:00:00 AM EDT eCW1 ([facility]) Triamcinolone Acetonide 0.25 MG/ML Topical Cream 02/26/2021 12:00:0 0 AM EDT eCW1 ([facility]) [place] 75 MCG 02/26/2021 12:00:00 AM EDT eCW1 ([facility]) Triamcinolone Acetonide 0.25 MG/ML Topical Cream 02/26/2021 12:00:0 0 AM EDT eCW1 ([facility]) [place] 75 MCG 02/26/2021 12:00:00 AM EDT eCW1 ([facility]) Triamcinolone Acetonide 0.25 MG/ML Topical Cream 02/26/2021 12:00:0 0 AM EDT eCW1 ([facility]) [place] 75 MCG 02/26/2021 12:00:00 AM EDT eCW1 ([facility]) Triamcinolone Acetonide 0.25 MG/ML Topical Cream 02/26/2021 12:00:0 0 AM EDT eCW1 ([facility]) [place] 75 MCG 02/26/2021 12:00:00 AM EDT eCW1 ([facility]) Triamcinolone Acetonide 0.25 MG/ML Topical Cream 02/26/2021 12:00:0 0 AM EDT eCW1 ([facility]) Amphetamine aspartate 5 MG / Amphetamine Sulfate 5 MG / Dextroamphetamine saccharate 5 MG / Dextroamphetamine Sulfate 5 MG Oral Tablet [Adderall] 02/14/2021 12:00:00 AM EDT eCW1 ([facility]) Amphetamine aspartate 5 MG / Amphetamine Sulfate 5 MG / Dextroamphetamine saccharate 5 MG / Dextroamphetamine Sulfate 5 MG Oral Tablet [Adderall] 02/14/2021 12:00:00 AM EDT eCW1 ([facility]) Amphetamine aspartate 5 MG / Amphetamine Sulfate 5 MG / Dextroamphetamine saccharate 5 MG / Dextroamphetamine Sulfate 5 MG Oral Tablet [Adderall] 02/14/2021 12:00:00 AM EDT eCW1 ([facility]) Amphetamine aspartate 5 MG / Amphetamine Sulfate 5 MG / Dextroamphetamine saccharate 5 MG / Dextroamphetamine Sulfate 5 MG Oral Tablet [Adderall] 01/17/2021 12:00:00 AM EDT eCW1 ([facility]) Amphetamine aspartate 5 MG / Amphetamine Sulfate 5 MG / Dextroamphetamine saccharate 5 MG / Dextroamphetamine Sulfate 5 MG Oral Tablet [Adderall] 01/17/2021 12:00:00 AM EDT eCW1 ([facility]) Cyclobenzaprine hydrochloride 5 MG Oral Tablet 12/26/2020 12:00:00 AM EDT eCW1 ([facility]) pregabalin 50 MG Oral Capsule [Lyrica] 12/26/2020 12:00:00 AM EDT eCW1 ([facility]) Cyclobenzaprine hydrochloride 5 MG Oral Tablet 12/26/2020 12:00:00 AM EDT eCW1 ([facility]) pregabalin 50 MG Oral Capsule [Lyrica] 12/26/2020 12:00:00 AM EDT eCW1 ([facility]) pregabalin 50 MG Oral Capsule [Lyrica] 12/26/2020 12:00:00 AM EDT eCW1 ([facility]) Cyclobenzaprine hydrochloride 5 MG Oral Tablet 12/26/2020 12:00:00 AM EDT eCW1 ([facility]) pregabalin 50 MG Oral Capsule [Lyrica] 12/26/2020 12:00:00 AM EDT eCW1 ([facility]) Cyclobenzaprine hydrochloride 5 MG Oral Tablet 12/26/2020 12:00:00 AM EDT eCW1 ([facility]) pregabalin 50 MG Oral Capsule [Lyrica] 12/26/2020 12:00:00 AM EDT eCW1 ([facility]) Cyclobenzaprine hydrochloride 5 MG Oral Tablet 12/26/2020 12:00:00 AM EDT eCW1 ([facility]) pregabalin 50 MG Oral Capsule [Lyrica] 12/26/2020 12:00:00 AM EDT eCW1 ([facility]) Cyclobenzaprine hydrochloride 5 MG Oral Tablet 12/26/2020 12:00:00 AM EDT eCW1 ([facility]) pregabalin 50 MG Oral Capsule [Lyrica] 12/26/2020 12:00:00 AM EDT eCW1 ([facility]) Cyclobenzaprine hydrochloride 5 MG Oral Tablet 12/26/2020 12:00:00 AM EDT eCW1 ([facility]) pregabalin 50 MG Oral Capsule [Lyrica] 12/26/2020 12:00:00 AM EDT eCW1 ([facility]) Cyclobenzaprine hydrochloride 5 MG Oral Tablet 12/26/2020 12:00:00 AM EDT eCW1 ([facility]) pregabalin 50 MG Oral Capsule [Lyrica] 12/26/2020 12:00:00 AM EDT eCW1 ([facility]) Cyclobenzaprine hydrochloride 5 MG Oral Tablet 12/26/2020 12:00:00 AM EDT eCW1 ([facility]) Cyclobenzaprine hydrochloride 5 MG Oral Tablet 12/26/2020 12:00:00 AM EDT eCW1 ([facility]) pregabalin 50 MG Oral Capsule [Lyrica] 12/26/2020 12:00:00 AM EDT eCW1 ([facility]) Amphetamine aspartate 5 MG / Amphetamine Sulfate 5 MG / Dextroamphetamine saccharate 5 MG / Dextroamphetamine Sulfate 5 MG Oral Tablet [Adderall] 12/19/2020 12:00:00 AM EDT eCW1 ([facility]) Amphetamine aspartate 5 MG / Amphetamine Sulfate 5 MG / Dextroamphetamine saccharate 5 MG / Dextroamphetamine Sulfate 5 MG Oral Tablet [Adderall] 12/19/2020 12:00:00 AM EDT eCW1 ([facility]) Amphetamine aspartate 5 MG / Amphetamine Sulfate 5 MG / Dextroamphetamine saccharate 5 MG / Dextroamphetamine Sulfate 5 MG Oral Tablet [Adderall] 12/19/2020 12:00:00 AM EDT eCW1 ([facility]) [employer]Duo RespiClick 113/14 113-14 MCG/ACT 12/06/2020 12:00:00 AM EDT eCW1 ([facility]) [employer]pi[employer] 113/14 113-14 MCG/ACT 12/06/2020 12:00:00 AM EDT eCW1 ([facility]) [employer]pi[employer] 113/14 113-14 MCG/ACT 12/06/2020 12:00:00 AM EDT eCW1 ([facility]) [employer]pi[employer] 113/14 113-14 MCG/ACT 12/06/2020 12:00:00 AM EDT eCW1 ([facility]) [employer] 113/14 113-14 MCG/ACT 12/06/2020 12:00:00 AM EDT eCW1 ([facility]) duloxetine 60 MG Delayed Release Oral Capsule [Cymbalt a] 12/02/2020 12:00:00 AM EDT eCW1 ([facility]) duloxetine 60 MG Delayed Release Oral Capsule [Cymbalt a] 12/02/2020 12:00:00 AM EDT eCW1 ([facility]) duloxetine 60 MG Delayed Release Oral Capsule [Cymbalt a] 12/02/2020 12:00:00 AM EDT eCW1 ([facility]) duloxetine 60 MG Delayed Release Oral Capsule [Cymbalt a] 12/02/2020 12:00:00 AM EDT eCW1 ([facility]) duloxetine 60 MG Delayed Release Oral Capsule [Cymbalt a] 12/02/2020 12:00:00 AM EDT eCW1 ([facility]) duloxetine 60 MG Delayed Release Oral Capsule [Cymbalt a] 12/02/2020 12:00:00 AM EDT eCW1 ([facility]) duloxetine 60 MG Delayed Release Oral Capsule [Cymbalt a] 12/02/2020 12:00:00 AM EDT eCW1 ([facility]) duloxetine 60 MG Delayed Release Oral Capsule [Cymbalt a] 12/02/2020 12:00:00 AM EDT eCW1 ([facility]) duloxetine 60 MG Delayed Release Oral Capsule [Cymbalt a] 12/02/2020 12:00:00 AM EDT eCW1 ([facility]) duloxetine 60 MG Delayed Release Oral Capsule [Cymbalt a] 12/02/2020 12:00:00 AM EDT eCW1 ([facility]) 60 ACTUAT Fluticasone propionate 0.25 MG /ACTUAT / salmeterol 0.05 MG/ACTUAT Dry Powder Inhaler [Advair] 12/02/2020 12:00:00 AM EDT eCW1 ([facility]) duloxetine 60 MG Delayed Release Oral Capsule [Cymbalt a] 12/02/2020 12:00:00 AM EDT eCW1 ([facility]) 60 ACTUAT Fluticasone propionate 0.25 MG /ACTUAT / salmeterol 0.05 MG/ACTUAT Dry Powder Inhaler [Advair] 12/02/2020 12:00:00 AM EDT eCW1 ([facility]) duloxetine 60 MG Delayed Release Oral Capsule [Cymbalt a] 12/02/2020 12:00:00 AM EDT eCW1 ([facility]) duloxetine 60 MG Delayed Release Oral Capsule [Cymbalt a] 12/02/2020 12:00:00 AM EDT eCW1 ([facility]) 60 ACTUAT Fluticasone propionate 0.25 MG /ACTUAT / salmeterol 0.05 MG/ACTUAT Dry Powder Inhaler [Advair] 12/02/2020 12:00:00 AM EDT eCW1 ([facility]) duloxetine 60 MG Delayed Release Oral Capsule [Cymbalt a] 12/02/2020 12:00:00 AM EDT eCW1 ([facility]) 60 ACTUAT Fluticasone propionate 0.25 MG /ACTUAT / salmeterol 0.05 MG/ACTUAT Dry Powder Inhaler [Advair] 12/02/2020 12:00:00 AM EDT eCW1 ([facility]) duloxetine 60 MG Delayed Release Oral Capsule [Cymbalt a] 12/02/2020 12:00:00 AM EDT eCW1 ([facility]) 60 ACTUAT Fluticasone propionate 0.25 MG /ACTUAT / salmeterol 0.05 MG/ACTUAT Dry Powder Inhaler [Advair] 12/02/2020 12:00:00 AM EDT eCW1 ([facility]) duloxetine 60 MG Delayed Release Oral Capsule [Cymbalt a] 12/02/2020 12:00:00 AM EDT eCW1 ([facility]) 60 ACTUAT Fluticasone propionate 0.25 MG /ACTUAT / salmeterol 0.05 MG/ACTUAT Dry Powder Inhaler [Advair] 12/02/2020 12:00:00 AM EDT eCW1 ([facility]) 60 ACTUAT Fluticasone propionate 0.25 MG /ACTUAT / salmeterol 0.05 MG/ACTUAT Dry Powder Inhaler [Advair] 12/02/2020 12:00:00 AM EDT eCW1 ([facility]) Carbamazepine 200 MG Oral Tablet 11/24/2020 12:00:00 AM EDT eCW1 ([facility]) Carbamazepine 200 MG Oral Tablet 11/24/2020 12:00:00 AM EDT eCW1 ([facility]) Carbamazepine 200 MG Oral Tablet 11/24/2020 12:00:00 AM EDT eCW1 ([facility]) Carbamazepine 200 MG Oral Tablet 11/24/2020 12:00:00 AM EDT eCW1 ([facility]) Carbamazepine 200 MG Oral Tablet 11/24/2020 12:00:00 AM EDT eCW1 ([facility]) duloxetine 30 MG Delayed Release Oral Capsule [Cymbalt a] 11/22/2020 12:00:00 AM EDT eCW1 ([facility]) duloxetine 30 MG Delayed Release Oral Capsule [Cymbalt a] 11/22/2020 12:00:00 AM EDT eCW1 ([facility]) duloxetine 30 MG Delayed Release Oral Capsule [Cymbalt a] 11/22/2020 12:00:00 AM EDT eCW1 ([facility]) duloxetine 30 MG Delayed Release Oral Capsule [Cymbalt a] 11/22/2020 12:00:00 AM EDT eCW1 ([facility]) Amphetamine aspartate 5 MG / Amphetamine Sulfate 5 MG / Dextroamphetamine saccharate 5 MG / Dextroamphetamine Sulfate 5 MG Oral Tablet [Adderall] 11/18/2020 12:00:00 AM EDT eCW1 ([facility]) Amphetamine aspartate 5 MG / Amphetamine Sulfate 5 MG / Dextroamphetamine saccharate 5 MG / Dextroamphetamine Sulfate 5 MG Oral Tablet [Adderall] 11/18/2020 12:00:00 AM EDT eCW1 ([facility]) Amphetamine aspartate 5 MG / Amphetamine Sulfate 5 MG / Dextroamphetamine saccharate 5 MG / Dextroamphetamine Sulfate 5 MG Oral Tablet [Adderall] 11/18/2020 12:00:00 AM EDT eCW1 ([facility]) Amphetamine aspartate 5 MG / Amphetamine Sulfate 5 MG / Dextroamphetamine saccharate 5 MG / Dextroamphetamine Sulfate 5 MG Oral Tablet [Adderall] 11/18/2020 12:00:00 AM EDT eCW1 ([facility]) Amphetamine aspartate 5 MG / Amphetamine Sulfate 5 MG / Dextroamphetamine saccharate 5 MG / Dextroamphetamine Sulfate 5 MG Oral Tablet [Adderall] 11/18/2020 12:00:00 AM EDT eCW1 ([facility]) Amphetamine aspartate 5 MG / Amphetamine Sulfate 5 MG / Dextroamphetamine saccharate 5 MG / Dextroamphetamine Sulfate 5 MG Oral Tablet [Adderall] 11/18/2020 12:00:00 AM EDT eCW1 ([facility]) Amphetamine aspartate 5 MG / Amphetamine Sulfate 5 MG / Dextroamphetamine saccharate 5 MG / Dextroamphetamine Sulfate 5 MG Oral Tablet [Adderall] 11/18/2020 12:00:00 AM EDT eCW1 ([facility]) gabapentin 600 MG Oral Tablet 11/01/2020 12:00:00 AM EDT eCW1 ([facility]) gabapentin 600 MG Oral Tablet 11/01/2020 12:00:00 AM EDT eCW1 ([facility]) gabapentin 600 MG Oral Tablet 11/01/2020 12:00:00 AM EDT eCW1 ([facility]) gabapentin 600 MG Oral Tablet 11/01/2020 12:00:00 AM EDT eCW1 ([facility]) gabapentin 600 MG Oral Tablet 11/01/2020 12:00:00 AM EDT eCW1 ([facility]) gabapentin 300 MG Oral Capsule 11/01/2020 12:00:00 AM EDT eCW1 ([facility]) gabapentin 300 MG Oral Capsule 11/01/2020 12:00:00 AM EDT eCW1 ([facility]) gabapentin 300 MG Oral Capsule 11/01/2020 12:00:00 AM EDT eCW1 ([facility]) gabapentin 300 MG Oral Capsule 11/01/2020 12:00:00 AM EDT eCW1 ([facility]) gabapentin 300 MG Oral Capsule 11/01/2020 12:00:00 AM EDT eCW1 ([facility]) gabapentin 300 MG Oral Capsule 11/01/2020 12:00:00 AM EDT eCW1 ([facility]) gabapentin 300 MG Oral Capsule 11/01/2020 12:00:00 AM EDT eCW1 ([facility]) gabapentin 300 MG Oral Capsule 11/01/2020 12:00:00 AM EDT eCW1 ([facility]) gabapentin 300 MG Oral Capsule 11/01/2020 12:00:00 AM EDT eCW1 ([facility]) Amphetamine aspartate 5 MG / Amphetamine Sulfate 5 MG / Dextroamphetamine saccharate 5 MG / Dextroamphetamine Sulfate 5 MG Oral Tablet [Adderall] 10/18/2020 12:00:00 AM EDT eCW1 ([facility]) Amphetamine aspartate 5 MG / Amphetamine Sulfate 5 MG / Dextroamphetamine saccharate 5 MG / Dextroamphetamine Sulfate 5 MG Oral Tablet [Adderall] 10/18/2020 12:00:00 AM EDT eCW1 ([facility]) hydrocortisone acetate 25 MG Rectal Suppository [Anuso l HC] 10/11/2020 12:00:00 AM EDT eCW1 ([facility]) hydrocortisone acetate 25 MG Rectal Suppository [Anuso l HC] 10/11/2020 12:00:00 AM EDT eCW1 ([facility]) hydrocortisone acetate 25 MG Rectal Suppository [Anuso l HC] 10/11/2020 12:00:00 AM EDT eCW1 ([facility]) hydrocortisone acetate 25 MG Rectal Suppository [Anuso l HC] 10/11/2020 12:00:00 AM EDT eCW1 ([facility]) Amphetamine aspartate 5 MG / Amphetamine Sulfate 5 MG / Dextroamphetamine saccharate 5 MG / Dextroamphetamine Sulfate 5 MG Oral Tablet [Adderall] 09/20/2020 12:00:00 AM EDT eCW1 ([facility]) Amphetamine aspartate 5 MG / Amphetamine Sulfate 5 MG / Dextroamphetamine saccharate 5 MG / Dextroamphetamine Sulfate 5 MG Oral Tablet [Adderall] 09/20/2020 12:00:00 AM EDT eCW1 ([facility]) Amphetamine aspartate 5 MG / Amphetamine Sulfate 5 MG / Dextroamphetamine saccharate 5 MG / Dextroamphetamine Sulfate 5 MG Oral Tablet [Adderall] 09/20/2020 12:00:00 AM EDT eCW1 ([facility]) Amphetamine aspartate 5 MG / Amphetamine Sulfate 5 MG / Dextroamphetamine saccharate 5 MG / Dextroamphetamine Sulfate 5 MG Oral Tablet [Adderall] 09/20/2020 12:00:00 AM EDT eCW1 ([facility]) Norethindrone Acet-Ethinyl Est 1-20 MG-MCG 09/02/2020 12:00:00 AM E DT eCW1 ([facility]) Norethindrone Acet-Ethinyl Est 1-20 MG-MCG 09/02/2020 12:00:00 AM E DT eCW1 ([facility]) Norethindrone Acet-Ethinyl Est 1-20 MG-MCG 09/02/2020 12:00:00 AM E DT eCW1 ([facility]) Norethindrone Acet-Ethinyl Est 1-20 MG-MCG 09/02/2020 12:00:00 AM E DT eCW1 ([facility]) Norethindrone Acet-Ethinyl Est 1-20 MG-MCG 09/02/2020 12:00:00 AM E DT eCW1 ([facility]) Norethindrone Acet-Ethinyl Est 1-20 MG-MCG 09/02/2020 12:00:00 AM E DT eCW1 ([facility]) Norethindrone Acet-Ethinyl Est 1-20 MG-MCG 09/02/2020 12:00:00 AM E DT eCW1 ([facility]) Norethindrone Acet-Ethinyl Est 1-20 MG-MCG 09/02/2020 12:00:00 AM E DT eCW1 ([facility]) Amphetamine aspartate 5 MG / Amphetamine Sulfate 5 MG / Dextroamphetamine saccharate 5 MG / Dextroamphetamine Sulfate 5 MG Oral Tablet [Adderall] 07/19/2020 12:00:00 AM EST eCW1 ([facility]) Amphetamine aspartate 5 MG / Amphetamine Sulfate 5 MG / Dextroamphetamine saccharate 5 MG / Dextroamphetamine Sulfate 5 MG Oral Tablet [Adderall] 07/19/2020 12:00:00 AM EST eCW1 ([facility]) Amphetamine aspartate 5 MG / Amphetamine Sulfate 5 MG / Dextroamphetamine saccharate 5 MG / Dextroamphetamine Sulfate 5 MG Oral Tablet [Adderall] 07/19/2020 12:00:00 AM EST eCW1 ([facility]) Amphetamine aspartate 5 MG / Amphetamine Sulfate 5 MG / Dextroamphetamine saccharate 5 MG / Dextroamphetamine Sulfate 5 MG Oral Tablet [Adderall] 07/19/2020 12:00:00 AM EST eCW1 ([facility]) Amphetamine aspartate 5 MG / Amphetamine Sulfate 5 MG / Dextroamphetamine saccharate 5 MG / Dextroamphetamine Sulfate 5 MG Oral Tablet [Adderall] 07/19/2020 12:00:00 AM EST eCW1 ([facility]) Amphetamine aspartate 5 MG / Amphetamine Sulfate 5 MG / Dextroamphetamine saccharate 5 MG / Dextroamphetamine Sulfate 5 MG Oral Tablet [Adderall] 06/17/2020 12:00:00 AM EST eCW1 ([facility]) Amphetamine aspartate 5 MG / Amphetamine Sulfate 5 MG / Dextroamphetamine saccharate 5 MG / Dextroamphetamine Sulfate 5 MG Oral Tablet [Adderall] 04/17/2020 12:00:00 AM EST eCW1 ([facility]) Amphetamine aspartate 5 MG / Amphetamine Sulfate 5 MG / Dextroamphetamine saccharate 5 MG / Dextroamphetamine Sulfate 5 MG Oral Tablet [Adderall] 04/17/2020 12:00:00 AM EST eCW1 ([facility]) Amphetamine aspartate 5 MG / Amphetamine Sulfate 5 MG / Dextroamphetamine saccharate 5 MG / Dextroamphetamine Sulfate 5 MG Oral Tablet [Adderall] 04/17/2020 12:00:00 AM EST eCW1 ([facility]) Amphetamine aspartate 5 MG / Amphetamine Sulfate 5 MG / Dextroamphetamine saccharate 5 MG / Dextroamphetamine Sulfate 5 MG Oral Tablet [Adderall] 04/17/2020 12:00:00 AM EST eCW1 ([facility]) Amphetamine aspartate 5 MG / Amphetamine Sulfate 5 MG / Dextroamphetamine saccharate 5 MG / Dextroamphetamine Sulfate 5 MG Oral Tablet [Adderall] 04/17/2020 12:00:00 AM EST eCW1 ([facility]) Amphetamine aspartate 5 MG / Amphetamine Sulfate 5 MG / Dextroamphetamine saccharate 5 MG / Dextroamphetamine Sulfate 5 MG Oral Tablet [Adderall] 03/15/2020 12:00:00 AM EDT eCW1 ([facility]) Amphetamine aspartate 5 MG / Amphetamine Sulfate 5 MG / Dextroamphetamine saccharate 5 MG / Dextroamphetamine Sulfate 5 MG Oral Tablet [Adderall] 03/15/2020 12:00:00 AM EDT eCW1 ([facility]) Amphetamine aspartate 5 MG / Amphetamine Sulfate 5 MG / Dextroamphetamine saccharate 5 MG / Dextroamphetamine Sulfate 5 MG Oral Tablet [Adderall] 03/15/2020 12:00:00 AM EDT eCW1 ([facility])
[2021-04-14] MEDS ORDERED: CARB1TAB20 PO (14:43)
--- OUTSIDE RECORDS SUMMARY | 2021-04-14 15:45 | CCD ---
Author Author [facility] Organization [facility] Address Unknown Phone Unavailable Care Team Providers Care Highway Maintainer Name Role Phone Mike, L Paulina TRANSPORT CONDUCTOR Unavailable Unavailable Mike, L Paulina TRANSPORT CONDUCTOR Unavailable Unavailable Mike, L Paulina TRANSPORT CONDUCTOR Unavailable Unavailable Mike, L Paulina TRANSPORT CONDUCTOR Unavailable Unavailable Mike, L Paulina TRANSPORT CONDUCTOR Unavailable Unavailable Mike, L Paulina TRANSPORT CONDUCTOR Unavailable Unavailable Mike, L Paulina TRANSPORT CONDUCTOR Unavailable Unavailable Mike, L Paulina TRANSPORT CONDUCTOR Unavailable Unavailable Mike, L Paulina TRANSPORT CONDUCTOR Unavailable Unavailable Mike, L Paulina TRANSPORT CONDUCTOR Unavailable Unavailable Mike, L Paulina TRANSPORT CONDUCTOR Unavailable Unavailable Mike, L Paulina TRANSPORT CONDUCTOR Unavailable Unavailable Mike, L Paulina TRANSPORT CONDUCTOR Unavailable Unavailable Mike, L Paulina TRANSPORT CONDUCTOR Unavailable Unavailable Mike, L Paulina TRANSPORT CONDUCTOR Unavailable Unavailable Mike, L Paulina TRANSPORT CONDUCTOR Unavailable Unavailable Mike, L Paulina TRANSPORT CONDUCTOR Unavailable Unavailable Mike, L Paulina TRANSPORT CONDUCTOR Unavailable Unavailable Mike, L Paulina TRANSPORT CONDUCTOR Unavailable Unavailable Mike, L Paulina TRANSPORT CONDUCTOR Unavailable Unavailable Mike, L Paulina TRANSPORT CONDUCTOR Unavailable Unavailable Mike, L Paulina TRANSPORT CONDUCTOR Unavailable Unavailable Mike, L Paulina TRANSPORT CONDUCTOR Unavailable Unavailable Mike, L Paulina TRANSPORT CONDUCTOR Unavailable Unavailable Mike, L Paulina TRANSPORT CONDUCTOR Unavailable Unavailable Padalino, Angel Lindquist MD Unavailable [...] Padalino, Angel Lindquist MD Unavailable Unavailable Padalino, Angle Lindquist MD Unavailable Unavailable Padalino, Angel Lindquist [...] Angel Lindquist MD Unavailable Unavailable Padalino, Angel Lindqiust MD Unavailable Unavailable Padalino, Angel Lindquist MD [...] Unavailable Unavailable CEASARISAAC MD Unavailable Unavailable CESAARISAAC CORONADO MD Unavailable Unavailable CEASARISAAC MD Unavailable [...] Unavailable Unavailable CEASARISAAC CORONADO MD Unavailable Unavailable CEASARIASAC CORONADO MD Unavailable Unavailable CEASARISAAC MD Unavailable [...] Unavailable Unavailable Shruthi, E Jackie Unavailable Unavailable Shrtuhi, E Jackie Unavailable Unavailable Shruthi, E Jackie [...] MD Unavailable Unavailable CEASARIASAC MD Unavailable Unavailable CEASAR ISAAC MD Unavailable [...] Unavailable CEASARISAAC CORONADO MD Unavailable Unavailable CEASARISAAC ALONZO MD Unavailable [...] is protected by Article 27-F of the [facility] Public Health law. If you continue you may have access to information: Regarding HIV / AIDS; Provided by facilities licensed or operated by the [facility] Office of Mental Health; or Provided by the [facility] Office for People With Developmental Disabilities. If such information is present, then the following [facility] mandated warning applies: This information has been [...] law may result in a fine or nursing home sentence or both. A general authorization for the release of medical or other information is NOT sufficient authorization for further disc losure. Allergies and Adverse Reactions Type Description Substance Reaction Status Data Source(s ) Drug allergy No Known Drug Allergies No Known Drug Allergies [facility] Family History Family Member Name Family Member Gender Family Member Status Date o f Status Description Data Source(s) Unknown Unknown Problem MEDENT ([facility]) Encounters Encounter Providers Location Date Indications Data Source(s ) Unknown [address] [facility] [address] 04/09/2021 12:00:00 AM EDT eCW1 ([facility]) Outpatient Attender: Jackie MOYeferrer: ISAAC MCDONOUGH MD _[id number] 04/05/2021 10:05:40 AM EDT [facility] [place] [address] [facility] [address] 04/02/2021 12:00:00 AM EDT eCW1 ([facility]) Outpatient Attender: Paulina Mckeon NP [place] 04/01/2021 12:30:00 PM EDT [facility] ([facility] [place] [address] [facility] [address] 03/17/2021 12:00:00 AM EDT eCW1 ([facility]) [place] [address] [facility] [address] 03/17/2021 12:00:00 AM EDT eCW1 ([facility]) Outpatient Attender: Paulina Ricardo/[place]/Jet/Reindl 03/12/2021 10:00:00 AM EDT MEDENT ([facility]) Outpatient Attender: Echo Acuna MD Main office - [facility] 03/06/2021 01:30:00 PM EDT [facility] ([facility] [place] [address] [facility] [address] 03/06/2021 12:00:00 AM EDT eCW1 ([facility]) [place] [address] [facility] [address] 03/05/2021 12:00:00 AM EDT eCW1 ([facility]) [place] [address] [facility] [address] 03/05/2021 12:00:00 AM EDT eCW1 ([facility]) [place] [address] [facility] [address] 03/04/2021 12:00:00 AM EDT eCW1 ([facility]) [place] [address] [facility] [address] 02/27/2021 12:00:00 AM EDT eCW1 ([facility]) [place]patient [address] [facility] [address] 02/26/2021 12:00:00 AM EDT eCW1 ([facility]) [place]patient [address] [facility] [address] 02/26/2021 12:00:00 AM EDT eCW1 ([facility]) [place] [address] [facility] [address] 02/18/2021 12:00:00 AM EDT [facility] [place] [address] [facility] [address] 02/14/2021 12:00:00 AM EDT [facility]CW1 [facility]) [place] [address] [facility] [address] 02/12/2021 12:00:00 AM EDT eCW1 ([facility]) [place] [address] [facility] [address] 02/10/2021 12:00:00 AM EDT eCW1 ([facility]) Outpatient Attender: Jackie Hawkins [...] [facility] Unknown [address] [facility] [address] 01/16/2021 12:00:00 AM EDT eCW1 ([facility]) Outpatient Referrer: ISAAC MCDONOUGH MD 01/15/2021 07:46:2 3 PM EDT [facility] Outpatient Referrer: ISAAC MCDONOUGH MD 01/15/2021 02:13:4 2 PM EDT [facility] Unknown [address] [facility] [address] 01/15/2021 12:00:00 AM EDT eCW1 ([facility]) Outpatient Referrer: ISAAC MCDONOUGH MD 01/01/2021 12:00:5 7 PM EDT [facility] Outpatient 01/01/2021 12:00:46 PM EDT [facility] Outpatient 01/01/2021 11:59:35 AM EDT [facility] Unknown [address] [facility] [address] 01/01/2021 12:00:00 AM EDT eCW1 ([facility]) Outpatient Attender: ISAAC MCDONOUGH MD [facility] Internal Med at [place] 12/31/2020 01:00:00 PM EDT [facility] ([facility]) Unknown [address] [facility] [address] 12/31/2020 12:00:00 AM EDT eCW1 ([facility]) Outpatient [address] [place] [address] [place] [address] 12/26/2020 12:00:00 AM EDT eCW1 ([facility]) [place] [address] [facility] [address] 12/26/2020 12:00:00 AM EDT eCW1 ([facility]) [place] [address] [facility] [address] 12/24/2020 12:00:00 AM EDT eCW1 ([facility]) [place] [address] [facility] [address] 12/19/2020 12:00:00 AM EDT eCW1 ([facility]) [place] [address] [facility] [address] 12/17/2020 12:00:00 AM EDT eCW1 ([facility]) [place] [address] [facility] [address] 12/06/2020 12:00:00 AM EDT eCW1 ([facility]) [place] [address] [facility] [address] 12/04/2020 12:00:00 AM EDT eCW1 ([facility]) [place] [address] [facility] [address] 12/02/2020 12:00:00 AM EDT [facility] [place] [address] [facility] [address] 12/02/2020 12:00:00 AM EDT eCW1 ([facility]) Outpatient Attender: Lexa Padilla MD [facility] Internal Med at [place] 11/29/2020 03:20:00 PM EDT MEDNIRAJ ([facility]) Outpatient 11/29/2020 01:15:00 PM EDT [facility] Unknown [address] [facility] [address] 11/27/2020 12:00:00 AM EDT eCW1 ([facility]) [place] [address] [facility] [address] 11/26/2020 12:00:00 AM EDT [facility] [place] [address] [facility] [address] 11/22/2020 12:00:00 AM EDT [facility] Outpatient Attender: Echo Acuna MD Main office - [facility] 11/21/2020 12:45:00 PM EDT MEDENT ([facility]) [place] [address] [facility] [address] 11/20/2020 12:00:00 AM EDT [facility] [place] [address] [facility] [address] 11/20/2020 12:00:00 AM EDT [facility]CW1 [facility] [place] [address] [facility] [address] 11/18/2020 12:00:00 AM EDT eCW1 ([facility]) Outpatient Attender: ISAAC MCDONOUGH MD [facility] Internal Med at [place] 11/17/2020 02:35:00 AM EDT [facility] ([facility]) Inpatient Attender: ISAAC MCDONOUGH MD 11/16/2020 09:10:3 1 AM EDT Lab [place] [facility] Inpatient Attender: ISAAC MCDONOUGH MD 11/16/2020 04:49:[address] [facility] Inpatient Attender: ISAAC MCDONOUGH MD Attender: ER PHYSICIANAdmitter: ISAAC MCDONOUGH MD 11/16/2020 03:46:00 AM EDT - 11/17/2020 11:09:00 AM EDT IN[address] H[address] [facility] INTRACRANIAL HEMORRHAGE Patient discharged. Outpatient Attender: ISAAC MCDONOUGH MD [facility] Internal Med at [place] 11/16/2020 02:35:00 AM EDT [facility] ([facility]) [place] [address] [facility] [address] 11/12/2020 12:00:00 AM EDT eCW1 ([facility]) Outpatient [address] [facility] [address] 11/01/2020 12:00:00 AM EDT [facility] [place] [address] [facility] [address] 10/31/2020 12:00:00 AM EDT eCW1 ([facility]) Unknown [address] [facility] [place] [address] 10/30/2020 12:00:00 AM EDT [facility] Outpatient Attender: Lexa Padilla MD [facility] Internal Med at [place] 10/27/2020 11:11:00 AM EDT [facility] ([facility]) [place] [address] [facility] [address] 10/27/2020 12:00:00 AM EDT [facility] Inpatient Attender: Lexa Padilla MD 10/26/2020 02:37:21 AM EDT Lab [facility] Outpatient Attender: Lexa Padilla MD [facility] Internal Med at [place] 10/26/2020 02:36:00 AM EDT [facility] ([facility]) Outpatient Attender: Lexa Padilla MD 10/12 08:56:00 AM EDT - 10/27/2020 12:22:[address] [facility] Inpatient Attender: Lexa Padilla MDAdmitter: Lexa boyce MD 10/25/2020 08:56:00 AM EDT - 10/27/2020 12:22:00 PM EDT [facility] Patient discharged. [place] [address] [facility] [place] [address] 10/18/2020 12:00:00 AM EDT [facility] [place] [address] [facility] [address] 10/16/2020 12:00:00 AM EDT [facility]CW1 [facility] [place] [address] [facility] [address] 10/11/2020 12:00:00 AM EDT eCW1 ([facility]) Outpatient Attender: Lexa Padilla MD [facility] Internal Med at [place] 10/01/2020 11:40:00 AM EDT [facility] ([facility]) [place] [address] [facility] [address] 09/17/2020 12:00:00 AM EDT eCW1 ([facility]) [place] [address] [facility] [address] 09/13/2020 12:00:00 AM EDT [facility] Outpatient Attender: Lexa Padilla MD [facility] Internal Med at [place] 09/10/2020 02:51:00 AM EDT [facility] ([facility]) Inpatient Attender: Lexa Padilla MD 09/09/2020 09:49:16 AM EDT Lab [place] [facility] D Attender: 0000{ THATCHER 09:10:00 AM EDT - 09/10/2020 11:45:[address] [facility] Inpatient Attender: Lexa Padilla MDAdmitter: Lexa boyce MD 09/09/2020 09:10:00 AM EDT - 09/10/2020 11:45:00 AM EDT AVM EMBOLIZATION [facility] AVM EMBOLIZATION Patient discharged. [place] [address] [facility] [address] 09/06/2020 12:00:00 AM EDT eCW1 ([facility]) Outpatient [address] [facility] [address] 09/02/2020 12:00:00 AM EDT eCW1 ([facility]) Outpatient Attender: Echo Acuna MD Main office - [facility] 08/26/2020 11:30:00 AM EDT MEDENT ([facility]) Outpatient Attender: Lexa Padilla MD [facility] Internal Med at [place] 08/23/2020 02:00:00 PM EST [facility] ([facility] [place] [address] [facility] [address] 08/17/2020 12:00:00 AM EST [facility] [place] [address] [facility] [address] 08/17/2020 12:00:00 AM EST eCW1 ([facility]) [place] [address] [facility] [place] [address] 08/17/2020 12:00:00 AM EST eCW1 ([facility]) [place] [address] [facility] [address] 08/17/2020 12:00:00 AM EST [facility] Outpatient Attender: Lexa Padilla MD 08/15/2020 09:28:49 AM EST Lab [place] [facility] Outpatient Attender: Lexa Padilla MDAdmitter: Lexa boyce MD 08/15/2020 09:07:00 AM EST - 08/15/2020 11:30:00 AM EST ARTERIOVENOUS MALFORMATION OF CEREBRAL VESSELS [facility] ARTERIOVENOUS MALFORMATION OF CEREBRAL V ESSELS Patient discharged. Outpatient Attender: 0000{ THATCHER 08/15/2020 09:07:00 AM E [facility] Outpatient Attender: Lexa Padilla MD [facility] Internal Med at [place] 08/07/2020 01:00:00 PM EST [facility] ([facility] [place] [address] [facility] [address] 07/17/2020 12:00:00 AM EST eCW1 ([facility]) [place] [address] [facility] [address] 06/16/2020 12:00:00 AM EST eCW1 ([facility]) Outpatient Attender: Echo Acuna MD Main office - [facility] 05/28/2020 07:00:00 AM EST [facility] ([facility] [place] [address] [facility] [address] 05/03/2020 12:00:00 AM EST eCW1 ([facility]) [place] [address] [facility] [place] [address] 04/30/2020 12:00:00 AM EST eCW1 ([facility]) [place] [address] [facility] [place] [address] 04/29/2020 12:00:00 AM EST eCW1 ([facility]) [place] [address] [facility] [place] [address] 04/19/2020 12:00:00 AM EST eCW1 ([facility]) [place] [address] [facility] [place] [address] 04/16/2020 12:00:00 AM EST eCW1 ([facility]) [place] [address] [facility] [address] 03/18/2020 12:00:00 AM EDT eCW1 ([facility]) [place] [address] [facility] [place] [address] 03/05/2020 12:00:00 AM EDT eCW1 ([facility]) [place] [address] [facility] [place] [address] 03/05/2020 12:00:00 AM EDT eCW1 ([facility]) Immunizations Vaccine Date Status Description Data Source(s) influenza, recombinant, quadrIvalent,injectable, prese rvative free 04/02/2021 05:09:00 PM EDT completed eCW1 ([facility]) influenza, recombinant, quadrIvalent,injectable, prese rvative free 04/02/2021 05:09:00 PM EDT completed eCW1 ([facility]) Pfizer Covid-19 Sars-Cov-2, mRNA, LNP-S, PF, 30 mcg/ 0 .3 mL 09/13/2020 12:00:00 AM EDT completed [facility] ([facility]) COVID-19 (Pfizer), mRNA, LNP-S, PF, 30 mcg/0.3 mL dose 09/13/2020 12:00:[address] [facility] COVID-19 VACCINE Pfizer 09/13/2020 12:00:00 AM EDT completed [facility] Vaccine Series Complete: YESThis Data wa s Submitted to [facility] Via [facility]. COVID-19 (Pfizer), mRNA, LNP-S, PF, 30 mcg/0.3 mL dose 08/23/2020 12:00:[address] [facility] COVID-19 VACCINE Pfizer 08/23/2020 12:00:00 AM EST [facility] Complete: NOThis Data was Submitted to [facility] Via [facility]. Pfizer Covid-19 Sars-Cov-2, mRNA, LNP-S, PF, 30 mcg/ 0 .3 mL 08/22/2020 11:00:00 PM EST completed [facility] ([facility]) Medications Medication Brand Name Start Date [...] {capsule} active G abapentin 400 MG eCW1 ([facility]) gabapentin 400 MG Oral Capsule Gabapentin 400 MG Gabapentin 400 MG 04/02/2021 12:00:00 AM EDT 1.0 {capsule} active G abapentin 400 MG eCW1 ([facility]) 20 mg 03/19/2021 12:00:00 AM EDT tablet [...] EDT a ctive Adderall 20 MG eCW1 ([facility]) Amphetamine aspartate 5 MG / Amphetamine Sulfate 5 MG / Dextroamphetamine saccharate 5 MG / Dextroamphetamine Sulfate 5 MG Oral Tablet [Adderall] Adderall 20 MG Adderall 20 MG 03/17/2021 12:00:00 AM EDT a ctive Adderall 20 MG eCW1 ([facility]) Amphetamine aspartate 5 MG / Amphetamine Sulfate 5 MG / Dextroamphetamine saccharate 5 MG / Dextroamphetamine Sulfate 5 MG Oral Tablet [Adderall] Adderall 20 MG Adderall 20 MG 03/17/2021 12:00:00 AM EDT a ctive Adderall 20 MG eCW1 ([facility]) Amphetamine aspartate 5 MG / Amphetamine Sulfate 5 MG / Dextroamphetamine saccharate 5 MG / Dextroamphetamine Sulfate 5 MG Oral Tablet [Adderall] Adderall 20 MG Adderall 20 MG 03/17/2021 12:00:00 AM EDT a ctive Adderall 20 MG eCW1 ([facility]) 50 mg 03/07/2021 12:00:00 AM EDT tablet [...] {tablet_as_needed} active traMADol HCl 50 MG eCW1 ([facility]) tramadol hydrochloride 50 MG Oral Tablet traMADol HCl 50 MG traMADol HCl 50 MG 03/05/2021 12:00:00 AM EDT 1.0 {tablet_as_needed} active traMADol HCl 50 MG eCW1 ([facility]) tramadol hydrochloride 50 MG Oral Tablet traMADol HCl 50 MG traMADol HCl 50 MG 03/05/2021 12:00:00 AM EDT 1.0 {tablet_as_needed} active traMADol HCl 50 MG eCW1 ([facility]) tramadol hydrochloride 50 MG Oral Tablet traMADol HCl 50 MG traMADol HCl 50 MG 03/05/2021 12:00:00 AM EDT 1.0 {tablet_as_needed} active traMADol HCl 50 MG eCW1 ([facility]) tramadol hydrochloride 50 MG Oral Tablet traMADol HCl 50 MG traMADol HCl 50 MG 03/05/2021 12:00:00 AM EDT 1.0 {tablet_as_needed} suspended traMADol HCl 50 MG eCW1 ([facility]) tramadol hydrochloride 50 MG Oral Tablet traMADol HCl 50 MG traMADol HCl 50 MG 03/05/2021 12:00:00 AM EDT 1.0 {tablet_as_needed} active traMADol HCl 50 MG eCW1 ([facility]) tramadol hydrochloride 50 MG Oral Tablet traMADol HCl 50 MG traMADol HCl 50 MG 03/05/2021 12:00:00 AM EDT 1.0 {tablet_as_needed} suspended traMADol HCl 50 MG eCW1 ([facility]) tramadol hydrochloride 50 MG Oral Tablet traMADol HCl 50 MG traMADol HCl 50 MG 03/05/2021 12:00:00 AM EDT 1.0 {tablet_as_needed} active traMADol HCl 50 MG eCW1 ([facility]) tramadol hydrochloride 50 MG Oral Tablet traMADol HCl 50 MG traMADol HCl 50 MG 03/05/2021 12:00:00 AM EDT 1.0 {tablet_as_needed} active traMADol HCl 50 MG eCW1 ([facility]) 168 HR Buprenorphine 0.005 MG/HR Transdermal Patch [Bu Trans] Butrans 5 MCG/HR Butrans 5 MCG/HR 03/03/2021 12:00:00 AM EDT 1.0 {patch_to_skin} active Butrans 5 MCG/HR eCW1 ([facility]) 168 HR Buprenorphine 0.005 MG/HR Transdermal Patch [Bu Trans] Butrans 5 MCG/HR Butrans 5 MCG/HR 03/03/2021 12:00:00 AM EDT 1.0 {patch_to_skin} active Butrans 5 MCG/HR eCW1 ([facility]) 168 HR Buprenorphine 0.005 MG/HR Transdermal Patch [Bu Trans] Butrans 5 MCG/HR Butrans 5 MCG/HR 03/03/2021 12:00:00 AM EDT 1.0 {patch_to_skin} active Butrans 5 MCG/HR eCW1 ([facility]) 168 HR Buprenorphine 0.005 MG/HR Transdermal Patch [Bu Trans] Butrans 5 MCG/HR Butrans 5 MCG/HR 03/03/2021 12:00:00 AM EDT 1.0 {patch_to_skin} suspended Butrans 5 MCG/HR eCW1 ([facility]) 168 HR Buprenorphine 0.005 MG/HR Transdermal Patch [Bu Trans] Butrans 5 MCG/HR Butrans 5 MCG/HR 03/03/2021 12:00:00 AM EDT 1.0 {patch_to_skin} active Butrans 5 MCG/HR eCW1 ([facility]) 168 HR Buprenorphine 0.005 MG/HR Transdermal Patch [Bu Trans] Butrans 5 MCG/HR Butrans 5 MCG/HR 03/03/2021 12:00:00 AM EDT 1.0 {patch_to_skin} active Butrans 5 MCG/HR eCW1 ([facility]) 168 HR Buprenorphine 0.005 MG/HR Transdermal Patch [Bu Trans] Butrans 5 MCG/HR Butrans 5 MCG/HR 03/03/2021 12:00:00 AM EDT 1.0 {patch_to_skin} active Butrans 5 MCG/HR eCW1 ([facility]) 168 HR Buprenorphine 0.005 MG/HR Transdermal Patch [Bu Trans] Butrans 5 MCG/HR Butrans 5 MCG/HR 03/03/2021 12:00:00 AM EDT 1.0 {patch_to_skin} active Butrans 5 MCG/HR eCW1 ([facility]) 168 HR Buprenorphine 0.005 MG/HR Transdermal Patch [Bu Trans] Butrans 5 MCG/HR Butrans 5 MCG/HR 03/03/2021 12:00:00 AM EDT 1.0 {patch_to_skin} suspended Butrans 5 MCG/HR eCW1 ([facility]) 168 HR Buprenorphine 0.005 MG/HR Transdermal Patch [Bu Trans] Butrans 5 MCG/HR Butrans 5 MCG/HR 03/03/2021 12:00:00 AM EDT 1.0 {patch_to_skin} active Butrans 5 MCG/HR eCW1 ([facility]) Triamcinolone Acetonide 0.25 MG/ML Topic al Cream Triamcinolone Acetonide 0.025 % Triamcinolone Acetonide 0.025 % 02/26/2021 12:00:00 AM EDT 1.0 {application} active Triamcinolone Aceton thomas 0.025 % eCW1 ([facility]) Belbuca 75 MCG Belbuca 75 MCG 02/26/2021 12:00:00 AM EDT suspended Belbuca 75 MCG eCW1 ([facility]) Triamcinolone Acetonide 0.25 MG/ML Topic al Cream Triamcinolone Acetonide 0.025 % Triamcinolone Acetonide 0.025 % 02/26/2021 12:00:00 AM EDT 1.0 {application} active Triamcinolone Aceton thomas 0.025 % eCW1 ([facility]) Belbuca 75 MCG Belbuca 75 MCG 02/26/2021 12:00:00 AM EDT active Belbuca 75 MCG eCW1 ([facility]) Belbuca 75 MCG Belbuca 75 MCG 02/26/2021 12:00:00 AM EDT active Belbuca 75 MCG eCW1 ([facility]) Belbuca 75 MCG Belbuca 75 MCG 02/26/2021 12:00:00 AM EDT suspended Belbuca 75 MCG eCW1 ([facility]) Belbuca 75 MCG Belbuca 75 MCG 02/26/2021 12:00:00 AM EDT active Belbuca 75 MCG eCW1 ([facility]) Belbuca 75 MCG Belbuca 75 MCG 02/26/2021 12:00:00 AM EDT active Belbuca 75 MCG eCW1 ([facility]) Belbuca 75 MCG Belbuca 75 MCG 02/26/2021 12:00:00 AM EDT active Belbuca 75 MCG eCW1 ([facility]) Triamcinolone Acetonide 0.25 MG/ML Topic al Cream Triamcinolone Acetonide 0.025 % Triamcinolone Acetonide 0.025 % 02/26/2021 12:00:00 AM EDT 1.0 {application} active Triamcinolone Aceton thomas 0.025 % eCW1 ([facility] [place]) Triamcinolone Acetonide 0.25 MG/ML Topic al Cream Triamcinolone Acetonide 0.025 % Triamcinolone Acetonide 0.025 % 02/26/2021 12:00:00 AM EDT 1.0 {application} active Triamcinolone Aceton thomas 0.025 % eCW1 ([facility] [place]) Triamcinolone Acetonide 0.25 MG/ML Topic al Cream Triamcinolone Acetonide 0.025 % Triamcinolone Acetonide 0.025 % 02/26/2021 12:00:00 AM EDT 1.0 {application} active Triamcinolone Aceton thomas 0.025 % eCW1 ([facility] [place]) Belbuca 75 MCG Belbuca 75 MCG 02/26/2021 12:00:00 AM EDT active Belbuca 75 MCG eCW1 ([facility] [place]) Belbuca 75 MCG Belbuca 75 MCG 02/26/2021 12:00:00 AM EDT active Belbuca 75 MCG eCW1 ([facility] [place]) Belbuca 75 MCG Belbuca 75 MCG 02/26/2021 12:00:00 AM EDT active Belbuca 75 MCG eCW1 ([facility] [place]) Belbuca 75 MCG Belbuca 75 MCG 02/26/2021 12:00:00 AM EDT active Bel[place]uca 75 MCG eCW1 ([facility] [place]) Triamcinolone Acetonide 0.25 MG/ML Topic al Cream Triamcinolone Acetonide 0.025 % Triamcinolone Acetonide 0.025 % 02/26/2021 12:00:00 AM EDT 1.0 {application} active Triamcinolone Aceton thomas 0.025 % eCW1 ([facility] [place]) Triamcinolone Acetonide 0.25 MG/ML Topic al Cream Triamcinolone Acetonide 0.025 % Triamcinolone Acetonide 0.025 % 02/26/2021 12:00:00 AM EDT 1.0 {application} active Triamcinolone Aceton thomas 0.025 % eCW1 ([facility] [place]) Triamcinolone Acetonide 0.25 MG/ML Topic al Cream Triamcinolone Acetonide 0.025 % Triamcinolone Acetonide 0.025 % 02/26/2021 12:00:00 AM EDT 1.0 {application} active Triamcinolone Aceton thomas 0.025 % eCW1 ([facility] [place]) Triamcinolone Acetonide 0.25 MG/ML Topic al Cream Triamcinolone Acetonide 0.025 % Triamcinolone Acetonide 0.025 % 02/26/2021 12:00:00 AM EDT 1.0 {application} active Triamcinolone Aceton thomas 0.025 % eCW1 ([facility] [place]) Triamcinolone Acetonide 0.25 MG/ML Topic al Cream Triamcinolone Acetonide 0.025 % Triamcinolone Acetonide 0.025 % 02/26/2021 12:00:00 AM EDT 1.0 {application} active Triamcinolone Aceton thomas 0.025 % eCW1 ([facility] [place]) 0.025 % 02/26/2021 12:00:00 AM EDT cream 15 APPLY TO FINGERS TWO TIMES A DAY APPLY TO FINGERS TWO TIMES A DAY SOLD: 02/27/2021 24/7 Card Drugs Triamcinolone Acetonide 0.25 MG/ML Topic al Cream Triamcinolone Acetonide 0.025 % Triamcinolone Acetonide 0.025 % 02/26/2021 12:00:00 AM EDT 1.0 {application} active Triamcinolone Aceton thomas 0.025 % eCW1 ([facility] [place]) 500 mg 02/21/2021 12:00:00 AM EDT capsule 30 TAKE ONE CAPSULE BY MOUTH THREE TIMES A DAY TAKE ONE CAPSULE BY MOUTH THREE TIMES A DAY SOLD: 02/24/2021 24/7 [facility] Amphetamine aspartate 5 MG / Amphetamine [...] EDT a ctive Adderall 20 MG eCW1 ([facility] [place]) Amphetamine aspartate 5 MG / Amphetamine Sulfate 5 MG / Dextroamphetamine saccharate 5 MG / Dextroamphetamine Sulfate 5 MG Oral Tablet [Adderall] Adderall 20 MG Adderall 20 MG 02/14/2021 12:00:00 AM EDT a ctive Adderall 20 MG eCW1 ([facility] [place]) Amphetamine aspartate 5 MG / Amphetamine Sulfate 5 MG / Dextroamphetamine saccharate 5 MG / Dextroamphetamine Sulfate 5 MG Oral Tablet [Adderall] Adderall 20 MG Adderall 20 MG 02/14/2021 12:00:00 AM EDT a ctive Adderall 20 MG eCW1 ([facility] [place]) Amphetamine aspartate 5 MG / Amphetamine Sulfate 5 MG / Dextroamphetamine saccharate 5 MG / Dextroamphetamine Sulfate 5 MG Oral Tablet [Adderall] Adderall 20 MG Adderall 20 MG 02/14/2021 12:00:00 AM EDT a ctive Adderall 20 MG eCW1 ([facility] [place]) Amphetamine aspartate 5 MG / Amphetamine Sulfate 5 MG / Dextroamphetamine saccharate 5 MG / Dextroamphetamine Sulfate 5 MG Oral Tablet [Adderall] Adderall 20 MG Adderall 20 MG 02/14/2021 12:00:00 AM EDT a ctive Adderall 20 MG eCW1 ([facility] [place]) Amphetamine aspartate 5 MG / Amphetamine Sulfate 5 MG / Dextroamphetamine saccharate 5 MG / Dextroamphetamine Sulfate 5 MG Oral Tablet [Adderall] Adderall 20 MG Adderall 20 MG 02/14/2021 12:00:00 AM EDT a ctive Adderall 20 MG eCW1 ([facility] [place]) Amphetamine aspartate 5 MG / Amphetamine Sulfate 5 MG / Dextroamphetamine saccharate 5 MG / Dextroamphetamine Sulfate 5 MG Oral Tablet [Adderall] Adderall 20 MG Adderall 20 MG 02/14/2021 12:00:00 AM EDT a ctive Adderall 20 MG eCW1 ([facility] [place]) Amphetamine aspartate 5 MG / Amphetamine Sulfate 5 MG / Dextroamphetamine saccharate 5 MG / Dextroamphetamine Sulfate 5 MG Oral Tablet [Adderall] Adderall 20 MG Adderall 20 MG 02/14/2021 12:00:00 AM EDT a ctive Adderall 20 MG eCW1 ([facility] [place]) Amphetamine aspartate 5 MG / Amphetamine Sulfate 5 MG / Dextroamphetamine saccharate 5 MG / Dextroamphetamine Sulfate 5 MG Oral Tablet [Adderall] Adderall 20 MG Adderall 20 MG 02/14/2021 12:00:00 AM EDT a ctive Adderall 20 MG eCW1 ([facility] [place]) Amphetamine aspartate 5 MG / Amphetamine Sulfate 5 MG / Dextroamphetamine saccharate 5 MG / Dextroamphetamine Sulfate 5 MG Oral Tablet [Adderall] Adderall 20 MG Adderall 20 MG 02/14/2021 12:00:00 AM EDT a ctive Adderall 20 MG eCW1 ([facility]) 600 mg 01/18/2021 12:00:00 AM EDT tablet [...] EDT a ctive Adderall 20 MG eCW1 ([facility] [place]) Amphetamine aspartate 5 MG / Amphetamine Sulfate 5 MG / Dextroamphetamine saccharate 5 MG / Dextroamphetamine Sulfate 5 MG Oral Tablet [Adderall] Adderall 20 MG Adderall 20 MG 01/17/2021 12:00:00 AM EDT a ctive Adderall 20 MG eCW1 ([facility]) 60 mg 01/01/2021 12:00:00 AM EDT capsule,delayed [...] 1.0 {capsule} suspended Lyrica 50 MG eCW1 ([facility] [place]) Cyclobenzaprine hydrochloride 5 MG Oral Tablet Cyclobe nzaprine HCl 5 MG Cyclobenzaprine HCl 5 MG 12/26/2020 12:00:00 AM EDT 1.0 {tablet_at_bedtime_as_needed} suspended Cyclobenzaprine HCl 5 MG eCW1 ([facility] [place]) pregabalin 50 MG Oral Capsule [Lyrica] Lyrica 50 MG Lyrica 5 0 MG 12/26/2020 12:00:00 AM EDT 1.0 {capsule} suspended Lyrica 50 MG eCW1 ([facility] [place]) Cyclobenzaprine hydrochloride 5 MG Oral Tablet Cyclobe nzaprine HCl 5 MG Cyclobenzaprine HCl 5 MG 12/26/2020 12:00:00 AM EDT 1.0 {tablet_at_bedtime_as_needed} active Cy clobenzaprine HCl 5 MG eCW1 ([facility] [place]) pregabalin 50 MG Oral Capsule [Lyrica] Lyrica 50 MG Lyrica 5 0 MG 12/26/2020 12:00:00 AM EDT 1.0 {capsule} suspended Lyrica 50 MG eCW1 ([facility]) Cyclobenzaprine hydrochloride 5 MG Oral Tablet Cyclobe nzaprine HCl 5 MG Cyclobenzaprine HCl 5 MG 12/26/2020 12:00:00 AM EDT 1.0 {tablet_at_bedtime_as_needed} suspended Cyclobenzaprine HCl 5 MG eCW1 ([facility] [place]) pregabalin 50 MG Oral Capsule [Lyrica] Lyrica 50 MG Lyrica 5 0 MG 12/26/2020 12:00:00 AM EDT 1.0 {capsule} suspended Lyrica 50 MG eCW1 ([facility] [place]) Cyclobenzaprine hydrochloride 5 MG Oral Tablet Cyclobe nzaprine HCl 5 MG Cyclobenzaprine HCl 5 MG 12/26/2020 12:00:00 AM EDT 1.0 {tablet_at_bedtime_as_needed} suspended Cyclobenzaprine HCl 5 MG eCW1 ([facility] [place]) pregabalin 50 MG Oral Capsule [Lyrica] Lyrica 50 MG Lyrica 5 0 MG 12/26/2020 12:00:00 AM EDT 1.0 {capsule} suspended Lyrica 50 MG eCW1 ([facility] [place]) Cyclobenzaprine hydrochloride 5 MG Oral Tablet Cyclobe nzaprine HCl 5 MG Cyclobenzaprine HCl 5 MG 12/26/2020 12:00:00 AM EDT 1.0 {tablet_at_bedtime_as_needed} active Cy clobenzaprine HCl 5 MG eCW1 ([facility] [place]) pregabalin 50 MG Oral Capsule [Lyrica] Lyrica 50 MG Lyrica 5 0 MG 12/26/2020 12:00:00 AM EDT 1.0 {capsule} suspended Lyrica 50 MG eCW1 ([facility]) pregabalin 50 MG Oral Capsule [Lyrica] Lyrica 50 MG Lyrica 5 0 MG 12/26/2020 12:00:00 AM EDT 1.0 {capsule} active L yrica 50 MG eCW1 ([facility] [place]) Cyclobenzaprine hydrochloride 5 MG Oral Tablet Cyclobe nzaprine HCl 5 MG Cyclobenzaprine HCl 5 MG 12/26/2020 12:00:00 AM EDT 1.0 {tablet_at_bedtime_as_needed} active Cy clobenzaprine HCl 5 MG eCW1 ([facility] [place]) Cyclobenzaprine hydrochloride 5 MG Oral Tablet Cyclobe nzaprine HCl 5 MG Cyclobenzaprine HCl 5 MG 12/26/2020 12:00:00 AM EDT 1.0 {tablet_at_bedtime_as_needed} suspended Cyclobenzaprine HCl 5 MG eCW1 ([facility] [place]) Cyclobenzaprine hydrochloride 5 MG Oral Tablet Cyclobe nzaprine HCl 5 MG Cyclobenzaprine HCl 5 MG 12/26/2020 12:00:00 AM EDT 1.0 {tablet_at_bedtime_as_needed} suspended Cyclobenzaprine HCl 5 MG eCW1 ([facility] [place]) Cyclobenzaprine hydrochloride 5 MG Oral Tablet Cyclobe nzaprine HCl 5 MG Cyclobenzaprine HCl 5 MG 12/26/2020 12:00:00 AM EDT 1.0 {tablet_at_bedtime_as_needed} suspended Cyclobenzaprine HCl 5 MG eCW1 ([facility] [place]) Cyclobenzaprine hydrochloride 5 MG Oral Tablet Cyclobe nzaprine HCl 5 MG Cyclobenzaprine HCl 5 MG 12/26/2020 12:00:00 AM EDT 1.0 {tablet_at_bedtime_as_needed} active Cy clobenzaprine HCl 5 MG eCW1 ([facility] [place]) Cyclobenzaprine hydrochloride 5 MG Oral Tablet Cyclobe nzaprine HCl 5 MG Cyclobenzaprine HCl 5 MG 12/26/2020 12:00:00 AM EDT 1.0 {tablet_at_bedtime_as_needed} active Cy clobenzaprine HCl 5 MG eCW1 ([facility] [place]) pregabalin 50 MG Oral Capsule [Lyrica] Lyrica 50 MG Lyrica 5 0 MG 12/26/2020 12:00:00 AM EDT 1.0 {capsule} suspended Lyrica 50 MG eCW1 ([facility] [place]) Cyclobenzaprine hydrochloride 5 MG Oral Tablet Cyclobe nzaprine HCl 5 MG Cyclobenzaprine HCl 5 MG 12/26/2020 12:00:00 AM EDT 1.0 {tablet_at_bedtime_as_needed} active Cy clobenzaprine HCl 5 MG eCW1 ([facility] [place]) pregabalin 50 MG Oral Capsule [Lyrica] Lyrica 50 MG Lyrica 5 0 MG 12/26/2020 12:00:00 AM EDT 1.0 {capsule} suspended Lyrica 50 MG eCW1 ([facility] [place]) Cyclobenzaprine hydrochloride 5 MG Oral Tablet Cyclobe nzaprine HCl 5 MG Cyclobenzaprine HCl 5 MG 12/26/2020 12:00:00 AM EDT 1.0 {tablet_at_bedtime_as_needed} suspended Cyclobenzaprine HCl 5 MG eCW1 ([facility] [place]) Cyclobenzaprine hydrochloride 5 MG Oral Tablet Cyclobe nzaprine HCl 5 MG Cyclobenzaprine HCl 5 MG 12/26/2020 12:00:00 AM EDT 1.0 {tablet_at_bedtime_as_needed} active Cy clobenzaprine HCl 5 MG eCW1 ([facility] [place]) Cyclobenzaprine hydrochloride 5 MG Oral Tablet Cyclobe nzaprine HCl 5 MG Cyclobenzaprine HCl 5 MG 12/26/2020 12:00:00 AM EDT 1.0 {tablet_at_bedtime_as_needed} suspended Cyclobenzaprine HCl 5 MG eCW1 ([facility] [place]) pregabalin 50 MG Oral Capsule [Lyrica] Lyrica 50 MG Lyrica 5 0 MG 12/26/2020 12:00:00 AM EDT 1.0 {capsule} active L yrica 50 MG eCW1 ([facility] [place]) pregabalin 50 MG Oral Capsule [Lyrica] Lyrica 50 MG Lyrica 5 0 MG 12/26/2020 12:00:00 AM EDT 1.0 {capsule} active L yrica 50 MG eCW1 ([facility] [place]) pregabalin 50 MG Oral Capsule [Lyrica] Lyrica 50 MG Lyrica 5 0 MG 12/26/2020 12:00:00 AM EDT 1.0 {capsule} active L yrica 50 MG eCW1 ([facility] [place]) pregabalin 50 MG Oral Capsule [Lyrica] Lyrica 50 MG Lyrica 5 0 MG 12/26/2020 12:00:00 AM EDT 1.0 {capsule} active L yrica 50 MG eCW1 ([facility] [place]) Cyclobenzaprine hydrochloride 5 MG Oral Tablet Cyclobe nzaprine HCl 5 MG Cyclobenzaprine HCl 5 MG 12/26/2020 12:00:00 AM EDT 1.0 {tablet_at_bedtime_as_needed} active Cy clobenzaprine HCl 5 MG eCW1 ([facility] [place]) pregabalin 50 MG Oral Capsule [Lyrica] Lyrica 50 MG Lyrica 5 0 MG 12/26/2020 12:00:00 AM EDT 1.0 {capsule} active L yrica 50 MG eCW1 ([facility] [place]) Cyclobenzaprine hydrochloride 5 MG Oral Tablet CYCLOBENZAPRI [...] 1.0 {capsule} suspended Lyrica 50 MG eCW1 ([facility] [place]) Cyclobenzaprine hydrochloride 5 MG Oral Tablet Cyclobe nzaprine HCl 5 MG Cyclobenzaprine HCl 5 MG 12/26/2020 12:00:00 AM EDT 1.0 {tablet_at_bedtime_as_needed} active Cy clobenzaprine HCl 5 MG eCW1 ([facility] [place]) Cyclobenzaprine hydrochloride 5 MG Oral Tablet Cyclobe nzaprine HCl 5 MG Cyclobenzaprine HCl 5 MG 12/26/2020 12:00:00 AM EDT 1.0 {tablet_at_bedtime_as_needed} suspended Cyclobenzaprine HCl 5 MG eCW1 ([facility] [place]) pregabalin 50 MG Oral Capsule [Lyrica] Lyrica 50 MG Lyrica 5 0 MG 12/26/2020 12:00:00 AM EDT 1.0 {capsule} suspended Lyrica 50 MG eCW1 ([facility] [place]) pregabalin 50 MG Oral Capsule [Lyrica] Lyrica 50 MG Lyrica 5 0 MG 12/26/2020 12:00:00 AM EDT 1.0 {capsule} active L yrica 50 MG eCW1 ([facility] [place]) pregabalin 50 MG Oral Capsule [Lyrica] Lyrica 50 MG Lyrica 5 0 MG 12/26/2020 12:00:00 AM EDT 1.0 {capsule} active L yrica 50 MG eCW1 ([facility] [place]) Cyclobenzaprine hydrochloride 5 MG Oral Tablet Cyclobe nzaprine HCl 5 MG Cyclobenzaprine HCl 5 MG 12/26/2020 12:00:00 AM EDT 1.0 {tablet_at_bedtime_as_needed} suspended Cyclobenzaprine HCl 5 MG eCW1 ([facility] [place]) pregabalin 50 MG Oral Capsule [Lyrica] Lyrica 50 MG Lyrica 5 0 MG 12/26/2020 12:00:00 AM EDT 1.0 {capsule} active L yrica 50 MG eCW1 ([facility] [place]) Cyclobenzaprine hydrochloride 5 MG Oral Tablet Cyclobe nzaprine HCl 5 MG Cyclobenzaprine HCl 5 MG 12/26/2020 12:00:00 AM EDT 1.0 {tablet_at_bedtime_as_needed} suspended Cyclobenzaprine HCl 5 MG eCW1 ([facility] [place]) pregabalin 50 MG Oral Capsule [Lyrica] Lyrica 50 MG Lyrica 5 0 MG 12/26/2020 12:00:00 AM EDT 1.0 {capsule} active L yrica 50 MG eCW1 ([facility] [place]) Cyclobenzaprine hydrochloride 5 MG Oral Tablet Cyclobe nzaprine HCl 5 MG Cyclobenzaprine HCl 5 MG 12/26/2020 12:00:00 AM EDT 1.0 {tablet_at_bedtime_as_needed} active Cy clobenzaprine HCl 5 MG eCW1 ([facility] [place]) pregabalin 50 MG Oral Capsule [Lyrica] Lyrica 50 MG Lyrica 5 0 MG 12/26/2020 12:00:00 AM EDT 1.0 {capsule} suspended Lyrica 50 MG eCW1 ([facility] [place]) 200 mg 12/24/2020 12:00:00 AM EDT tablet [...] EDT a ctive Adderall 20 MG eCW1 ([facility] [place]) Amphetamine aspartate 5 MG / Amphetamine Sulfate 5 MG / Dextroamphetamine saccharate 5 MG / Dextroamphetamine Sulfate 5 MG Oral Tablet [Adderall] Adderall 20 MG Adderall 20 MG 12/19/2020 12:00:00 AM EDT a ctive Adderall 20 MG eCW1 ([facility] [place]) Amphetamine aspartate 5 MG / Amphetamine Sulfate 5 MG / Dextroamphetamine saccharate 5 MG / Dextroamphetamine Sulfate 5 MG Oral Tablet [Adderall] Adderall 20 MG Adderall 20 MG 12/19/2020 12:00:00 AM EDT a ctive Adderall 20 MG eCW1 ([facility] [place]) Amphetamine aspartate 5 MG / Amphetamine Sulfate 5 MG / Dextroamphetamine saccharate 5 MG / Dextroamphetamine Sulfate 5 MG Oral Tablet [Adderall] Adderall 20 MG Adderall 20 MG 12/19/2020 12:00:00 AM EDT a ctive Adderall 20 MG eCW1 ([facility] [place]) Amphetamine aspartate 5 MG / Amphetamine Sulfate 5 MG / Dextroamphetamine saccharate 5 MG / Dextroamphetamine Sulfate 5 MG Oral Tablet [Adderall] Adderall 20 MG Adderall 20 MG 12/19/2020 12:00:00 AM EDT a ctive Adderall 20 MG eCW1 ([facility] [place]) Amphetamine aspartate 5 MG / Amphetamine Sulfate 5 MG / Dextroamphetamine saccharate 5 MG / Dextroamphetamine Sulfate 5 MG Oral Tablet [Adderall] Adderall 20 MG Adderall 20 MG 12/19/2020 12:00:00 AM EDT a ctive Adderall 20 MG eCW1 ([facility] [place]) Amphetamine aspartate 5 MG / Amphetamine Sulfate 5 MG / Dextroamphetamine saccharate 5 MG / Dextroamphetamine Sulfate 5 MG Oral Tablet [Adderall] Adderall 20 MG Adderall 20 MG 12/19/2020 12:00:00 AM EDT a ctive Adderall 20 MG eCW1 ([facility] [place]) Amphetamine aspartate 5 MG / Amphetamine Sulfate 5 MG / Dextroamphetamine saccharate 5 MG / Dextroamphetamine Sulfate 5 MG Oral Tablet [Adderall] Adderall 20 MG Adderall 20 MG 12/19/2020 12:00:00 AM EDT a ctive Adderall 20 MG eCW1 ([facility] [place]) 500 mg 12/16/2020 12:00:00 AM EDT tablet [...] MOUTH TWO TIMES A DAY SOLD: 02/18/2021 24/7 Card Drugs 60 ACTUAT Fluticasone propionate 0.113 M [...] MOUTH TWO TIMES A DAY SOLD: 03/19/2021 [facility] [employer] [facility] 113/14 113-14 MCG/ACT [employer] [facility] 11 08/25 113-14 MCG/ACT 12/06/2020 12:00:00 AM EDT 1.0 {puff} active [employer] 113/14 113-14 MCG/ACT eCW1 ([facility] [place]) [employer] 113/14 113-14 MCG/ACT [employer] [facility] 11 08/25 113-14 MCG/ACT 12/06/2020 12:00:00 AM EDT 1.0 {puff} active [employer] 113/14 113-14 MCG/ACT eCW1 ([facility] [place]) [employer] 113/14 113-14 MCG/ACT [employer] [facility] 11 08/25 113-14 MCG/ACT 12/06/2020 12:00:00 AM EDT 1.0 {puff} active [employer] 113/14 113-14 MCG/ACT eCW1 ([facility]) [employer] 113/14 113-14 MCG/ACT [employer] [facility] 11 08/25 113-14 MCG/ACT 12/06/2020 12:00:00 AM EDT 1.0 {puff} active [employer] 113/14 113-14 MCG/ACT eCW1 ([facility] [place]) [employer] 113/14 113-14 MCG/ACT [employer] [facility] 11 08/25 113-14 MCG/ACT 12/06/2020 12:00:00 AM EDT 1.0 {puff} active [employer] 113/14 113-14 MCG/ACT eCW1 ([facility]) 60 mg 12/03/2020 12:00:00 AM EDT capsule,delayed [...] activ e Advair Diskus 250-50 MCG/DOSE eCW1 ([facility] [place]) duloxetine 60 MG Delayed Release Oral Capsule [Cymbalt a] Cymbalta 60 MG Cymbalta 60 MG 12/02/2020 12:00:00 AM EDT 1.0 {capsule} acti ve Cymbalta 60 MG eCW1 ([facility]) 60 ACTUAT Fluticasone propionate 0.25 MG /ACTUAT / salmeterol 0.05 MG/ACTUAT Dry Powder Inhaler [Advair] Advair Diskus 250-50 MCG/DOSE Advair Diskus 250-50 MCG/DOSE 12/02/2020 12:00:00 AM EDT 1.0 {puff} activ e Advair Diskus 250-50 MCG/DOSE eCW1 ([facility]) duloxetine 60 MG Delayed Release Oral Capsule [Cymbalt a] Cymbalta 60 MG Cymbalta 60 MG 12/02/2020 12:00:00 AM EDT 1.0 {capsule} acti ve Cymbalta 60 MG eCW1 ([facility] [place]) duloxetine 60 MG Delayed Release Oral Capsule [Cymbalt a] Cymbalta 60 MG Cymbalta 60 MG 12/02/2020 12:00:00 AM EDT 1.0 {capsule} acti ve Cymbalta 60 MG eCW1 ([facility] [place]) duloxetine 60 MG Delayed Release Oral Capsule [Cymbalt a] Cymbalta 60 MG Cymbalta 60 MG 12/02/2020 12:00:00 AM EDT 1.0 {capsule} acti ve Cymbalta 60 MG eCW1 ([facility] [place]) 60 ACTUAT Fluticasone propionate 0.25 MG /ACTUAT / salmeterol 0.05 MG/ACTUAT Dry Powder Inhaler [Advair] Advair Diskus 250-50 MCG/DOSE Advair Diskus 250-50 MCG/DOSE 12/02/2020 12:00:00 AM EDT 1.0 {puff} activ e Advair Diskus 250-50 MCG/DOSE eCW1 ([facility] [place]) duloxetine 60 MG Delayed Release Oral Capsule [Cymbalt a] Cymbalta 60 MG Cymbalta 60 MG 12/02/2020 12:00:00 AM EDT 1.0 {capsule} acti ve Cymbalta 60 MG eCW1 ([facility] [place]) 60 ACTUAT Fluticasone propionate 0.25 MG /ACTUAT / salmeterol 0.05 MG/ACTUAT Dry Powder Inhaler [Advair] Advair Diskus 250-50 MCG/DOSE Advair Diskus 250-50 MCG/DOSE 12/02/2020 12:00:00 AM EDT 1.0 {puff} activ e Advair Diskus 250-50 MCG/DOSE eCW1 ([facility]) duloxetine 60 MG Delayed Release Oral Capsule [Cymbalt a] Cymbalta 60 MG Cymbalta 60 MG 12/02/2020 12:00:00 AM EDT 1.0 {capsule} acti ve Cymbalta 60 MG eCW1 ([facility] [place]) duloxetine 60 MG Delayed Release Oral Capsule [Cymbalt a] Cymbalta 60 MG Cymbalta 60 MG 12/02/2020 12:00:00 AM EDT 1.0 {capsule} acti ve Cymbalta 60 MG eCW1 ([facility] [place]) duloxetine 60 MG Delayed Release Oral Capsule [Cymbalt a] Cymbalta 60 MG Cymbalta 60 MG 12/02/2020 12:00:00 AM EDT 1.0 {capsule} acti ve Cymbalta 60 MG eCW1 ([facility] [place]) 60 ACTUAT Fluticasone propionate 0.25 MG /ACTUAT / salmeterol 0.05 MG/ACTUAT Dry Powder Inhaler [Advair] Advair Diskus 250-50 MCG/DOSE Advair Diskus 250-50 MCG/DOSE 12/02/2020 12:00:00 AM EDT 1.0 {puff} activ e Advair Diskus 250-50 MCG/DOSE eCW1 ([facility] [place]) duloxetine 60 MG Delayed Release Oral Capsule [Cymbalt a] Cymbalta 60 MG Cymbalta 60 MG 12/02/2020 12:00:00 AM EDT 1.0 {capsule} acti ve Cymbalta 60 MG eCW1 ([facility] [place]) duloxetine 60 MG Delayed Release Oral Capsule [Cymbalt a] Cymbalta 60 MG Cymbalta 60 MG 12/02/2020 12:00:00 AM EDT 1.0 {capsule} acti ve Cymbalta 60 MG eCW1 ([facility] [place]) duloxetine 60 MG Delayed Release Oral Capsule [Cymbalt a] Cymbalta 60 MG Cymbalta 60 MG 12/02/2020 12:00:00 AM EDT 1.0 {capsule} acti ve Cymbalta 60 MG eCW1 ([facility]) duloxetine 60 MG Delayed Release Oral Capsule [Cymbalt a] Cymbalta 60 MG Cymbalta 60 MG 12/02/2020 12:00:00 AM EDT 1.0 {capsule} acti ve Cymbalta 60 MG eCW1 ([facility]) duloxetine 60 MG Delayed Release Oral Capsule [Cymbalt a] Cymbalta 60 MG Cymbalta 60 MG 12/02/2020 12:00:00 AM EDT 1.0 {capsule} acti ve Cymbalta 60 MG eCW1 ([facility]) 60 ACTUAT Fluticasone propionate 0.25 MG /ACTUAT / salmeterol 0.05 MG/ACTUAT Dry Powder Inhaler [Advair] Advair Diskus 250-50 MCG/DOSE Advair Diskus 250-50 MCG/DOSE 12/02/2020 12:00:00 AM EDT 1.0 {puff} activ e Advair Diskus 250-50 MCG/DOSE eCW1 ([facility]) 60 ACTUAT Fluticasone propionate 0.25 MG /ACTUAT / salmeterol 0.05 MG/ACTUAT Dry Powder Inhaler [Advair] Advair Diskus 250-50 MCG/DOSE Advair Diskus 250-50 MCG/DOSE 12/02/2020 12:00:00 AM EDT 1.0 {puff} activ e Advair Diskus 250-50 MCG/DOSE eCW1 ([facility]) duloxetine 60 MG Delayed Release Oral Capsule [Cymbalt a] Cymbalta 60 MG Cymbalta 60 MG 12/02/2020 12:00:00 AM EDT 1.0 {capsule} acti ve Cymbalta 60 MG eCW1 ([facility] [place]) duloxetine 60 MG Delayed Release Oral Capsule [Cymbalt a] Cymbalta 60 MG Cymbalta 60 MG 12/02/2020 12:00:00 AM EDT 1.0 {capsule} acti ve Cymbalta 60 MG eCW1 ([facility]) duloxetine 60 MG Delayed Release Oral Capsule [Cymbalt a] Cymbalta 60 MG Cymbalta 60 MG 12/02/2020 12:00:00 AM EDT 1.0 {capsule} acti ve Cymbalta 60 MG eCW1 ([facility]) duloxetine 60 MG Delayed Release Oral Capsule [Cymbalt a] Cymbalta 60 MG Cymbalta 60 MG 12/02/2020 12:00:00 AM EDT 1.0 {capsule} acti ve Cymbalta 60 MG eCW1 ([facility]) duloxetine 60 MG Delayed Release Oral Capsule [Cymbalt a] Cymbalta 60 MG Cymbalta 60 MG 12/02/2020 12:00:00 AM EDT 1.0 {capsule} acti ve Cymbalta 60 MG eCW1 ([facility]) duloxetine 60 MG Delayed Release Oral Capsule [Cymbalt a] Cymbalta 60 MG Cymbalta 60 MG 12/02/2020 12:00:00 AM EDT 1.0 {capsule} acti ve Cymbalta 60 MG eCW1 ([facility]) duloxetine 60 MG Delayed Release Oral Capsule [Cymbalt a] Cymbalta 60 MG Cymbalta 60 MG 12/02/2020 12:00:00 AM EDT 1.0 {capsule} acti ve Cymbalta 60 MG eCW1 ([facility]) duloxetine 60 MG Delayed Release Oral Capsule [Cymbalt a] Cymbalta 60 MG Cymbalta 60 MG 12/02/2020 12:00:00 AM EDT 1.0 {capsule} acti ve Cymbalta 60 MG eCW1 ([facility] [place]) duloxetine 60 MG Delayed Release Oral Capsule [Cymbalt a] Cymbalta 60 MG Cymbalta 60 MG 12/02/2020 12:00:00 AM EDT 1.0 {capsule} acti ve Cymbalta 60 MG eCW1 ([facility]) duloxetine 60 MG Delayed Release Oral Capsule [Cymbalt a] Cymbalta 60 MG Cymbalta 60 MG 12/02/2020 12:00:00 AM EDT 1.0 {capsule} acti ve Cymbalta 60 MG eCW1 ([facility]) duloxetine 60 MG Delayed Release Oral Capsule [Cymbalt a] Cymbalta 60 MG Cymbalta 60 MG 12/02/2020 12:00:00 AM EDT 1.0 {capsule} acti ve Cymbalta 60 MG eCW1 ([facility]) duloxetine 60 MG Delayed Release Oral Capsule [Cymbalt a] Cymbalta 60 MG Cymbalta 60 MG 12/02/2020 12:00:00 AM EDT 1.0 {capsule} acti ve Cymbalta 60 MG eCW1 ([facility]) duloxetine 60 MG Delayed Release Oral Capsule [Cymbalt a] Cymbalta 60 MG Cymbalta 60 MG 12/02/2020 12:00:00 AM EDT 1.0 {capsule} acti ve Cymbalta 60 MG eCW1 ([facility]) duloxetine 60 MG Delayed Release Oral Capsule [Cymbalt a] Cymbalta 60 MG Cymbalta 60 MG 12/02/2020 12:00:00 AM EDT 1.0 {capsule} acti ve Cymbalta 60 MG eCW1 ([facility] [place]) duloxetine 60 MG Delayed Release Oral Capsule [Cymbalt a] Cymbalta 60 MG Cymbalta 60 MG 12/02/2020 12:00:00 AM EDT 1.0 {capsule} acti ve Cymbalta 60 MG eCW1 ([facility]) 200 mg 11/25/2020 12:00:00 AM EDT tablet 60 TAKE ONE TABLET BY MOUTH TWICE A DAY TAKE ONE TABLET BY MOUTH TWICE A DAY SOLD: 11/25/2020 [facility] Carbamazepine 200 MG Oral Tablet carBAMazepine 200 MG carBAM azepine 200 MG 11/24/2020 12:00:00 AM EDT 1.0 {tablet} active carBAMazepine 200 MG eCW1 ([facility]) Carbamazepine 200 MG Oral Tablet carBAMazepine 200 MG carBAM azepine 200 MG 11/24/2020 12:00:00 AM EDT 1.0 {tablet} active carBAMazepine 200 MG eCW1 ([facility]) Carbamazepine 200 MG Oral Tablet carBAMazepine 200 MG carBAM azepine 200 MG 11/24/2020 12:00:00 AM EDT 1.0 {tablet} active carBAMazepine 200 MG eCW1 ([facility]) Carbamazepine 200 MG Oral Tablet carBAMazepine 200 MG carBAM azepine 200 MG 11/24/2020 12:00:00 AM EDT 1.0 {tablet} active carBAMazepine 200 MG eCW1 ([facility]) Carbamazepine 200 MG Oral Tablet carBAMazepine 200 MG carBAM azepine 200 MG 11/24/2020 12:00:00 AM EDT 1.0 {tablet} active carBAMazepine 200 MG eCW1 ([facility]) Carbamazepine 200 MG Oral Tablet carBAMazepine 200 MG carBAM azepine 200 MG 11/24/2020 12:00:00 AM EDT 1.0 {tablet} active carBAMazepine 200 MG eCW1 ([facility]) Carbamazepine 200 MG Oral Tablet carBAMazepine 200 MG carBAM azepine 200 MG 11/24/2020 12:00:00 AM EDT 1.0 {tablet} active carBAMazepine 200 MG eCW1 ([facility]) Carbamazepine 200 MG Oral Tablet carBAMazepine 200 MG carBAM azepine 200 MG 11/24/2020 12:00:00 AM EDT 1.0 {tablet} active carBAMazepine 200 MG eCW1 ([facility]) Carbamazepine 200 MG Oral Tablet carBAMazepine 200 MG carBAM azepine 200 MG 11/24/2020 12:00:00 AM EDT 1.0 {tablet} active carBAMazepine 200 MG eCW1 ([facility]) Carbamazepine 200 MG Oral Tablet carBAMazepine 200 MG carBAM azepine 200 MG 11/24/2020 12:00:00 AM EDT 1.0 {tablet} active carBAMazepine 200 MG eCW1 ([facility]) Carbamazepine 200 MG Oral Tablet carBAMazepine 200 MG carBAM azepine 200 MG 11/24/2020 12:00:00 AM EDT 1.0 {tablet} active carBAMazepine 200 MG eCW1 ([facility]) Carbamazepine 200 MG Oral Tablet carBAMazepine 200 MG carBAM azepine 200 MG 11/24/2020 12:00:00 AM EDT 1.0 {tablet} active carBAMazepine 200 MG eCW1 ([facility]) Carbamazepine 200 MG Oral Tablet carBAMazepine 200 MG carBAM azepine 200 MG 11/24/2020 12:00:00 AM EDT 1.0 {tablet} active carBAMazepine 200 MG eCW1 ([facility]) Carbamazepine 200 MG Oral Tablet carBAMazepine 200 MG carBAM azepine 200 MG 11/24/2020 12:00:00 AM EDT 1.0 {tablet} active carBAMazepine 200 MG eCW1 ([facility]) Carbamazepine 200 MG Oral Tablet carBAMazepine 200 MG carBAM azepine 200 MG 11/24/2020 12:00:00 AM EDT 1.0 {tablet} active carBAMazepine 200 MG eCW1 ([facility]) Carbamazepine 200 MG Oral Tablet carBAMazepine 200 MG carBAM azepine 200 MG 11/24/2020 12:00:00 AM EDT 1.0 {tablet} active carBAMazepine 200 MG eCW1 ([facility]) Carbamazepine 200 MG Oral Tablet carBAMazepine 200 MG carBAM azepine 200 MG 11/24/2020 12:00:00 AM EDT 1.0 {tablet} active carBAMazepine 200 MG eCW1 ([facility]) Carbamazepine 200 MG Oral Tablet carBAMazepine 200 MG carBAM azepine 200 MG 11/24/2020 12:00:00 AM EDT 1.0 {tablet} active carBAMazepine 200 MG eCW1 ([facility]) Carbamazepine 200 MG Oral Tablet carBAMazepine 200 MG carBAM azepine 200 MG 11/24/2020 12:00:00 AM EDT 1.0 {tablet} active carBAMazepine 200 MG eCW1 ([facility]) 20 mg 11/23/2020 12:00:00 AM EDT capsule,delayed [...] {capsule} acti ve Cymbalta 30 MG eCW1 ([facility]) duloxetine 30 MG Delayed Release Oral Capsule [Cymbalt a] Cymbalta 30 MG Cymbalta 30 MG 11/22/2020 12:00:00 AM EDT 1.0 {capsule} acti ve Cymbalta 30 MG eCW1 ([facility]) duloxetine 30 MG Delayed Release Oral Capsule [Cymbalt a] Cymbalta 30 MG Cymbalta 30 MG 11/22/2020 12:00:00 AM EDT 1.0 {capsule} acti ve Cymbalta 30 MG eCW1 ([facility]) duloxetine 30 MG Delayed Release Oral Capsule [Cymbalt a] Cymbalta 30 MG Cymbalta 30 MG 11/22/2020 12:00:00 AM EDT 1.0 {capsule} acti ve Cymbalta 30 MG eCW1 ([facility]) duloxetine 30 MG Delayed Release Oral Capsule [Cymbalt a] Cymbalta 30 MG Cymbalta 30 MG 11/22/2020 12:00:00 AM EDT 1.0 {capsule} acti ve Cymbalta 30 MG eCW1 ([facility]) duloxetine 30 MG Delayed Release Oral Capsule [Cymbalt a] Cymbalta 30 MG Cymbalta 30 MG 11/22/2020 12:00:00 AM EDT 1.0 {capsule} acti ve Cymbalta 30 MG eCW1 ([facility]) duloxetine 30 MG Delayed Release Oral Capsule [Cymbalt a] Cymbalta 30 MG Cymbalta 30 MG 11/22/2020 12:00:00 AM EDT 1.0 {capsule} acti ve Cymbalta 30 MG eCW1 ([facility]) duloxetine 30 MG Delayed Release Oral Capsule [Cymbalt a] Cymbalta 30 MG Cymbalta 30 MG 11/22/2020 12:00:00 AM EDT 1.0 {capsule} acti ve Cymbalta 30 MG eCW1 ([facility]) duloxetine 30 MG Delayed Release Oral Capsule [Cymbalt a] Cymbalta 30 MG Cymbalta 30 MG 11/22/2020 12:00:00 AM EDT 1.0 {capsule} acti ve Cymbalta 30 MG eCW1 ([facility]) duloxetine 30 MG Delayed Release Oral Capsule [Cymbalt a] Cymbalta 30 MG Cymbalta 30 MG 11/22/2020 12:00:00 AM EDT 1.0 {capsule} acti ve Cymbalta 30 MG eCW1 ([facility]) duloxetine 30 MG Delayed Release Oral Capsule [Cymbalt a] Cymbalta 30 MG Cymbalta 30 MG 11/22/2020 12:00:00 AM EDT 1.0 {capsule} acti ve Cymbalta 30 MG eCW1 ([facility]) 20 mg 11/19/2020 12:00:00 AM EDT tablet [...] EDT a ctive Adderall 20 MG eCW1 ([facility]) Amphetamine aspartate 5 MG / Amphetamine Sulfate 5 MG / Dextroamphetamine saccharate 5 MG / Dextroamphetamine Sulfate 5 MG Oral Tablet [Adderall] Adderall 20 MG Adderall 20 MG 11/18/2020 12:00:00 AM EDT a ctive Adderall 20 MG eCW1 ([facility]) Amphetamine aspartate 5 MG / Amphetamine Sulfate 5 MG / Dextroamphetamine saccharate 5 MG / Dextroamphetamine Sulfate 5 MG Oral Tablet [Adderall] Adderall 20 MG Adderall 20 MG 11/18/2020 12:00:00 AM EDT a ctive Adderall 20 MG eCW1 ([facility]) Amphetamine aspartate 5 MG / Amphetamine Sulfate 5 MG / Dextroamphetamine saccharate 5 MG / Dextroamphetamine Sulfate 5 MG Oral Tablet [Adderall] Adderall 20 MG Adderall 20 MG 11/18/2020 12:00:00 AM EDT a ctive Adderall 20 MG eCW1 ([facility]) Amphetamine aspartate 5 MG / Amphetamine Sulfate 5 MG / Dextroamphetamine saccharate 5 MG / Dextroamphetamine Sulfate 5 MG Oral Tablet [Adderall] Adderall 20 MG Adderall 20 MG 11/18/2020 12:00:00 AM EDT a ctive Adderall 20 MG eCW1 ([facility]) Amphetamine aspartate 5 MG / Amphetamine Sulfate 5 MG / Dextroamphetamine saccharate 5 MG / Dextroamphetamine Sulfate 5 MG Oral Tablet [Adderall] Adderall 20 MG Adderall 20 MG 11/18/2020 12:00:00 AM EDT a ctive Adderall 20 MG eCW1 ([facility]) Amphetamine aspartate 5 MG / Amphetamine Sulfate 5 MG / Dextroamphetamine saccharate 5 MG / Dextroamphetamine Sulfate 5 MG Oral Tablet [Adderall] Adderall 20 MG Adderall 20 MG 11/18/2020 12:00:00 AM EDT a ctive Adderall 20 MG eCW1 ([facility]) Amphetamine aspartate 5 MG / Amphetamine Sulfate 5 MG / Dextroamphetamine saccharate 5 MG / Dextroamphetamine Sulfate 5 MG Oral Tablet [Adderall] Adderall 20 MG Adderall 20 MG 11/18/2020 12:00:00 AM EDT a ctive Adderall 20 MG eCW1 ([facility]) Amphetamine aspartate 5 MG / Amphetamine Sulfate 5 MG / Dextroamphetamine saccharate 5 MG / Dextroamphetamine Sulfate 5 MG Oral Tablet [Adderall] Adderall 20 MG Adderall 20 MG 11/18/2020 12:00:00 AM EDT a ctive Adderall 20 MG eCW1 ([facility]) Amphetamine aspartate 5 MG / Amphetamine Sulfate 5 MG / Dextroamphetamine saccharate 5 MG / Dextroamphetamine Sulfate 5 MG Oral Tablet [Adderall] Adderall 20 MG Adderall 20 MG 11/18/2020 12:00:00 AM EDT a ctive Adderall 20 MG eCW1 ([facility]) Amphetamine aspartate 5 MG / Amphetamine Sulfate 5 MG / Dextroamphetamine saccharate 5 MG / Dextroamphetamine Sulfate 5 MG Oral Tablet [Adderall] Adderall 20 MG Adderall 20 MG 11/18/2020 12:00:00 AM EDT a ctive Adderall 20 MG eCW1 ([facility]) 600 mg 11/13/2020 12:00:00 AM EDT tablet [...] 11/12/2020 12:00:00 AM EDT ORAL completed [facility] ([facility]) gabapentin 600 MG Oral Tablet Gabapentin 11/12/2020 12:00:00 AM EDT ORAL active [facility] ([facility]) gabapentin 600 MG Oral Tablet Gabapentin 600 MG Gabapentin 6 00 MG 11/01/2020 12:00:00 AM EDT 1.0 {capsule} active G abapentin 600 MG eCW1 ([facility]) gabapentin 600 MG Oral Tablet Gabapentin 600 MG Gabapentin 6 00 MG 11/01/2020 12:00:00 AM EDT 1.0 {capsule} active G abapentin 600 MG eCW1 ([facility]) gabapentin 600 MG Oral Tablet Gabapentin 600 MG Gabapentin 6 00 MG 11/01/2020 12:00:00 AM EDT 1.0 {capsule} active G abapentin 600 MG eCW1 ([facility]) gabapentin 300 MG Oral Capsule Gabapentin 300 MG Gabapentin 300 MG 11/01/2020 12:00:00 AM EDT 1.0 {capsule} active G abapentin 300 MG eCW1 ([facility]) gabapentin 600 MG Oral Tablet Gabapentin 600 MG Gabapentin 6 00 MG 11/01/2020 12:00:00 AM EDT 1.0 {capsule} active G abapentin 600 MG eCW1 ([facility]) gabapentin 600 MG Oral Tablet Gabapentin 600 MG Gabapentin 6 00 MG 11/01/2020 12:00:00 AM EDT 1.0 {capsule} active G abapentin 600 MG eCW1 ([facility] [place]) gabapentin 600 MG Oral Tablet Gabapentin 600 MG Gabapentin 6 00 MG 11/01/2020 12:00:00 AM EDT 1.0 {capsule} active G abapentin 600 MG eCW1 ([facility] [place]) gabapentin 600 MG Oral Tablet Gabapentin 600 MG Gabapentin 6 00 MG 11/01/2020 12:00:00 AM EDT 1.0 {capsule} active G abapentin 600 MG eCW1 ([facility] [place]) gabapentin 300 MG Oral Capsule Gabapentin 300 MG Gabapentin 300 MG 11/01/2020 12:00:00 AM EDT 1.0 {capsule} active G abapentin 300 MG eCW1 ([facility] [place]) gabapentin 600 MG Oral Tablet Gabapentin 600 MG Gabapentin 6 00 MG 11/01/2020 12:00:00 AM EDT 1.0 {capsule} active G abapentin 600 MG eCW1 ([facility]) gabapentin 300 MG Oral Capsule Gabapentin 300 MG Gabapentin 300 MG 11/01/2020 12:00:00 AM EDT 1.0 {capsule} active G abapentin 300 MG eCW1 ([facility] [place]) gabapentin 600 MG Oral Tablet Gabapentin 600 MG Gabapentin 6 00 MG 11/01/2020 12:00:00 AM EDT 1.0 {capsule} active G abapentin 600 MG eCW1 ([facility] [place]) gabapentin 600 MG Oral Tablet Gabapentin 600 MG Gabapentin 6 00 MG 11/01/2020 12:00:00 AM EDT 1.0 {capsule} active G abapentin 600 MG eCW1 ([facility] [place]) gabapentin 600 MG Oral Tablet Gabapentin 600 MG Gabapentin 6 00 MG 11/01/2020 12:00:00 AM EDT 1.0 {capsule} active G abapentin 600 MG eCW1 ([facility]) gabapentin 600 MG Oral Tablet Gabapentin 600 MG Gabapentin 6 00 MG 11/01/2020 12:00:00 AM EDT 1.0 {capsule} active G abapentin 600 MG eCW1 ([facility] [place]) gabapentin 300 MG Oral Capsule Gabapentin 300 MG Gabapentin 300 MG 11/01/2020 12:00:00 AM EDT 1.0 {capsule} active G abapentin 300 MG eCW1 ([facility] [place]) gabapentin 300 MG Oral Capsule Gabapentin 300 MG Gabapentin 300 MG 11/01/2020 12:00:00 AM EDT 1.0 {capsule} active G abapentin 300 MG eCW1 ([facility]) gabapentin 600 MG Oral Tablet Gabapentin 600 MG Gabapentin 6 00 MG 11/01/2020 12:00:00 AM EDT 1.0 {capsule} active G abapentin 600 MG eCW1 ([facility]) gabapentin 600 MG Oral Tablet Gabapentin 600 MG Gabapentin 6 00 MG 11/01/2020 12:00:00 AM EDT 1.0 {capsule} active G abapentin 600 MG eCW1 ([facility] [place]) gabapentin 600 MG Oral Tablet Gabapentin 600 MG Gabapentin 6 00 MG 11/01/2020 12:00:00 AM EDT 1.0 {capsule} active G abapentin 600 MG eCW1 ([facility] [place]) gabapentin 600 MG Oral Tablet Gabapentin 600 MG Gabapentin 6 00 MG 11/01/2020 12:00:00 AM EDT 1.0 {capsule} active G abapentin 600 MG eCW1 ([facility]) gabapentin 600 MG Oral Tablet Gabapentin 600 MG Gabapentin 6 00 MG 11/01/2020 12:00:00 AM EDT 1.0 {capsule} active G abapentin 600 MG eCW1 ([facility] [place]) gabapentin 600 MG Oral Tablet Gabapentin 600 MG Gabapentin 6 00 MG 11/01/2020 12:00:00 AM EDT 1.0 {capsule} active G abapentin 600 MG eCW1 ([facility] [place]) gabapentin 600 MG Oral Tablet Gabapentin 600 MG Gabapentin 6 00 MG 11/01/2020 12:00:00 AM EDT 1.0 {capsule} active G abapentin 600 MG eCW1 ([facility]) gabapentin 600 MG Oral Tablet Gabapentin 600 MG Gabapentin 6 00 MG 11/01/2020 12:00:00 AM EDT 1.0 {capsule} active G abapentin 600 MG eCW1 ([facility] [place]) gabapentin 300 MG Oral Capsule Gabapentin 300 MG Gabapentin 300 MG 11/01/2020 12:00:00 AM EDT 1.0 {capsule} active G abapentin 300 MG eCW1 ([facility]) gabapentin 600 MG Oral Tablet Gabapentin 600 MG Gabapentin 6 00 MG 11/01/2020 12:00:00 AM EDT 1.0 {capsule} active G abapentin 600 MG eCW1 ([facility]) gabapentin 600 MG Oral Tablet Gabapentin 600 MG Gabapentin 6 00 MG 11/01/2020 12:00:00 AM EDT 1.0 {capsule} active G abapentin 600 MG eCW1 ([facility]) gabapentin 600 MG Oral Tablet Gabapentin 600 MG Gabapentin 6 00 MG 11/01/2020 12:00:00 AM EDT 1.0 {capsule} active G abapentin 600 MG eCW1 ([facility]) gabapentin 600 MG Oral Tablet Gabapentin 600 MG Gabapentin 6 00 MG 11/01/2020 12:00:00 AM EDT 1.0 {capsule} active G abapentin 600 MG eCW1 ([facility]) gabapentin 300 MG Oral Capsule Gabapentin 300 MG Gabapentin 300 MG 11/01/2020 12:00:00 AM EDT 1.0 {capsule} active G abapentin 300 MG eCW1 ([facility]) gabapentin 600 MG Oral Tablet Gabapentin 600 MG Gabapentin 6 00 MG 11/01/2020 12:00:00 AM EDT 1.0 {capsule} active G abapentin 600 MG eCW1 ([facility]) gabapentin 600 MG Oral Tablet Gabapentin 600 MG Gabapentin 6 00 MG 11/01/2020 12:00:00 AM EDT 1.0 {capsule} active G abapentin 600 MG eCW1 ([facility]) gabapentin 300 MG Oral Capsule Gabapentin 300 MG Gabapentin 300 MG 11/01/2020 12:00:00 AM EDT 1.0 {capsule} active G abapentin 300 MG eCW1 ([facility]) gabapentin 300 MG Oral Capsule Gabapentin 300 MG Gabapentin 300 MG 11/01/2020 12:00:00 AM EDT 1.0 {capsule} active G abapentin 300 MG eCW1 ([facility]) 300 mg 11/01/2020 12:00:00 AM EDT capsule 30 TAKE ONE CAPSULE BY MOUTH EVERY DAY TAKE ONE CAPSULE BY MOUTH EVERY DAY SOLD: 11/01/2020 [facility] gabapentin 600 MG Oral Tablet Gabapentin 600 MG Gabapentin 6 00 MG 11/01/2020 12:00:00 AM EDT 1.0 {capsule} active G abapentin 600 MG eCW1 ([facility]) gabapentin 600 MG Oral Tablet Gabapentin 600 MG Gabapentin 6 00 MG 11/01/2020 12:00:00 AM EDT 1.0 {capsule} active G abapentin 600 MG eCW1 ([facility]) 4 mg 10/27/2020 12:00:00 AM EDT tablet [...] EDT a ctive Adderall 20 MG eCW1 ([facility]) Amphetamine aspartate 5 MG / Amphetamine Sulfate 5 MG / Dextroamphetamine saccharate 5 MG / Dextroamphetamine Sulfate 5 MG Oral Tablet [Adderall] Adderall 20 MG Adderall 20 MG 10/18/2020 12:00:00 AM EDT a ctive Adderall 20 MG eCW1 ([facility]) Amphetamine aspartate 5 MG / Amphetamine Sulfate 5 MG / Dextroamphetamine saccharate 5 MG / Dextroamphetamine Sulfate 5 MG Oral Tablet [Adderall] Adderall 20 MG Adderall 20 MG 10/18/2020 12:00:00 AM EDT a ctive Adderall 20 MG eCW1 ([facility]) Amphetamine aspartate 5 MG / Amphetamine Sulfate 5 MG / Dextroamphetamine saccharate 5 MG / Dextroamphetamine Sulfate 5 MG Oral Tablet [Adderall] Adderall 20 MG Adderall 20 MG 10/18/2020 12:00:00 AM EDT a ctive Adderall 20 MG eCW1 ([facility]) Amphetamine aspartate 5 MG / Amphetamine Sulfate 5 MG / Dextroamphetamine saccharate 5 MG / Dextroamphetamine Sulfate 5 MG Oral Tablet [Adderall] Adderall 20 MG Adderall 20 MG 10/18/2020 12:00:00 AM EDT a ctive Adderall 20 MG eCW1 ([facility]) 25 mg 10/17/2020 12:00:00 AM EDT tablet [...] 1.0 {suppository} active Anusol-HC 25 MG eCW1 ([facility]) hydrocortisone acetate 25 MG Rectal Suppository [Anuso l HC] Anusol-HC 25 MG Anusol-HC 25 MG 10/11/2020 12:00:00 AM EDT 1.0 {suppository} active Anusol-HC 25 MG eCW1 ([facility]) hydrocortisone acetate 25 MG Rectal Suppository [Anuso l HC] Anusol-HC 25 MG Anusol-HC 25 MG 10/11/2020 12:00:00 AM EDT 1.0 {suppository} active Anusol-HC 25 MG eCW1 ([facility]) hydrocortisone acetate 25 MG Rectal Suppository [Anuso l HC] Anusol-HC 25 MG Anusol-HC 25 MG 10/11/2020 12:00:00 AM EDT 1.0 {suppository} active Anusol-HC 25 MG eCW1 ([facility] [place]) hydrocortisone acetate 25 MG Rectal Suppository [Anuso l HC] Anusol-HC 25 MG Anusol-HC 25 MG 10/11/2020 12:00:00 AM EDT 1.0 {suppository} active Anusol-HC 25 MG eCW1 ([facility] [place]) hydrocortisone acetate 25 MG Rectal Suppository [Anuso l HC] Anusol-HC 25 MG Anusol-HC 25 MG 10/11/2020 12:00:00 AM EDT 1.0 {suppository} active Anusol-HC 25 MG eCW1 ([facility]) hydrocortisone acetate 25 MG Rectal Suppository [Anuso l HC] Anusol-HC 25 MG Anusol-HC 25 MG 10/11/2020 12:00:00 AM EDT 1.0 {suppository} active Anusol-HC 25 MG eCW1 ([facility] [place]) hydrocortisone acetate 25 MG Rectal Suppository [Anuso l HC] Anusol-HC 25 MG Anusol-HC 25 MG 10/11/2020 12:00:00 AM EDT 1.0 {suppository} active Anusol-HC 25 MG eCW1 ([facility]) hydrocortisone acetate 25 MG Rectal Suppository [Anuso l HC] Anusol-HC 25 MG Anusol-HC 25 MG 10/11/2020 12:00:00 AM EDT 1.0 {suppository} active Anusol-HC 25 MG eCW1 ([facility]) hydrocortisone acetate 25 MG Rectal Suppository [Anuso l HC] Anusol-HC 25 MG Anusol-HC 25 MG 10/11/2020 12:00:00 AM EDT 1.0 {suppository} active Anusol-HC 25 MG eCW1 ([facility]) hydrocortisone acetate 25 MG Rectal Suppository [Anuso l HC] Anusol-HC 25 MG Anusol-HC 25 MG 10/11/2020 12:00:00 AM EDT 1.0 {suppository} active Anusol-HC 25 MG eCW1 ([facility]) hydrocortisone acetate 25 MG Rectal Suppository [Anuso l HC] Anusol-HC 25 MG Anusol-HC 25 MG 10/11/2020 12:00:00 AM EDT 1.0 {suppository} active Anusol-HC 25 MG eCW1 ([facility]) hydrocortisone acetate 25 MG Rectal Suppository [Anuso l HC] Anusol-HC 25 MG Anusol-HC 25 MG 10/11/2020 12:00:00 AM EDT 1.0 {suppository} active Anusol-HC 25 MG eCW1 ([facility]) hydrocortisone acetate 25 MG Rectal Suppository [Anuso l HC] Anusol-HC 25 MG Anusol-HC 25 MG 10/11/2020 12:00:00 AM EDT 1.0 {suppository} active Anusol-HC 25 MG eCW1 ([facility]) hydrocortisone acetate 25 MG Rectal Suppository [Anuso l HC] Anusol-HC 25 MG Anusol-HC 25 MG 10/11/2020 12:00:00 AM EDT 1.0 {suppository} active Anusol-HC 25 MG eCW1 ([facility]) hydrocortisone acetate 25 MG Rectal Suppository [Anuso l HC] Anusol-HC 25 MG Anusol-HC 25 MG 10/11/2020 12:00:00 AM EDT 1.0 {suppository} active Anusol-HC 25 MG eCW1 ([facility]) hydrocortisone acetate 25 MG Rectal Suppository [Anuso l HC] Anusol-HC 25 MG Anusol-HC 25 MG 10/11/2020 12:00:00 AM EDT 1.0 {suppository} active Anusol-HC 25 MG eCW1 ([facility]) hydrocortisone acetate 25 MG Rectal Suppository [Anuso l HC] Anusol-HC 25 MG Anusol-HC 25 MG 10/11/2020 12:00:00 AM EDT 1.0 {suppository} active Anusol-HC 25 MG eCW1 ([facility]) hydrocortisone acetate 25 MG Rectal Suppository [Anuso l HC] Anusol-HC 25 MG Anusol-HC 25 MG 10/11/2020 12:00:00 AM EDT 1.0 {suppository} active Anusol-HC 25 MG eCW1 ([facility]) hydrocortisone acetate 25 MG Rectal Suppository [Anuso l HC] Anusol-HC 25 MG Anusol-HC 25 MG 10/11/2020 12:00:00 AM EDT 1.0 {suppository} active Anusol-HC 25 MG eCW1 ([facility]) hydrocortisone acetate 25 MG Rectal Suppository [Anuso l HC] Anusol-HC 25 MG Anusol-HC 25 MG 10/11/2020 12:00:00 AM EDT 1.0 {suppository} active Anusol-HC 25 MG eCW1 ([facility]) 20 mg 10/06/2020 12:00:00 AM EDT capsule [...] EDT a ctive Adderall 20 MG eCW1 ([facility]) Amphetamine aspartate 5 MG / Amphetamine Sulfate 5 MG / Dextroamphetamine saccharate 5 MG / Dextroamphetamine Sulfate 5 MG Oral Tablet [Adderall] Adderall 20 MG Adderall 20 MG 09/20/2020 12:00:00 AM EDT a ctive Adderall 20 MG eCW1 ([facility]) Amphetamine aspartate 5 MG / Amphetamine Sulfate 5 MG / Dextroamphetamine saccharate 5 MG / Dextroamphetamine Sulfate 5 MG Oral Tablet [Adderall] Adderall 20 MG Adderall 20 MG 09/20/2020 12:00:00 AM EDT a ctive Adderall 20 MG eCW1 ([facility]) Amphetamine aspartate 5 MG / Amphetamine Sulfate 5 MG / Dextroamphetamine saccharate 5 MG / Dextroamphetamine Sulfate 5 MG Oral Tablet [Adderall] Adderall 20 MG Adderall 20 MG 09/20/2020 12:00:00 AM EDT a ctive Adderall 20 MG eCW1 ([facility]) Amphetamine aspartate 5 MG / Amphetamine Sulfate [...] A MONTH FOR MIGRAINE PREVENTION SOLD: 11/19/2020 [facility] 120 mg/mL 09/03/2020 12:00:00 AM EDT [...] e Norethindrone Acet-Ethinyl Est 1-20 MG-MCG eCW1 ([facility]) Norethindrone Acet-Ethinyl Est 1-20 MG-MCG Norethindro ne Acet-Ethinyl Est 1-20 MG-MCG 09/02/2020 12:00:00 AM EDT 1.0 {tablet} activ e Norethindrone Acet-Ethinyl Est 1-20 MG-MCG eCW1 ([facility]) Norethindrone Acet-Ethinyl Est 1-20 MG-MCG Norethindro ne Acet-Ethinyl Est 1-20 MG-MCG 09/02/2020 12:00:00 AM EDT 1.0 {tablet} activ e Norethindrone Acet-Ethinyl Est 1-20 MG-MCG eCW1 ([facility]) Norethindrone Acet-Ethinyl Est 1-20 MG-MCG Norethindro ne Acet-Ethinyl Est 1-20 MG-MCG 09/02/2020 12:00:00 AM EDT 1.0 {tablet} activ e Norethindrone Acet-Ethinyl Est 1-20 MG-MCG eCW1 ([facility]) Norethindrone Acet-Ethinyl Est 1-20 MG-MCG Norethindro ne Acet-Ethinyl Est 1-20 MG-MCG 09/02/2020 12:00:00 AM EDT 1.0 {tablet} activ e Norethindrone Acet-Ethinyl Est 1-20 MG-MCG eCW1 ([facility]) Norethindrone Acet-Ethinyl Est 1-20 MG-MCG Norethindro ne Acet-Ethinyl Est 1-20 MG-MCG 09/02/2020 12:00:00 AM EDT 1.0 {tablet} activ e Norethindrone Acet-Ethinyl Est 1-20 MG-MCG eCW1 ([facility]) Norethindrone Acet-Ethinyl Est 1-20 MG-MCG Norethindro ne Acet-Ethinyl Est 1-20 MG-MCG 09/02/2020 12:00:00 AM EDT 1.0 {tablet} activ e Norethindrone Acet-Ethinyl Est 1-20 MG-MCG eCW1 ([facility]) Norethindrone Acet-Ethinyl Est 1-20 MG-MCG Norethindro ne Acet-Ethinyl Est 1-20 MG-MCG 09/02/2020 12:00:00 AM EDT 1.0 {tablet} activ e Norethindrone Acet-Ethinyl Est 1-20 MG-MCG eCW1 ([facility]) Norethindrone Acet-Ethinyl Est 1-20 MG-MCG Norethindro ne Acet-Ethinyl Est 1-20 MG-MCG 09/02/2020 12:00:00 AM EDT 1.0 {tablet} activ e Norethindrone Acet-Ethinyl Est 1-20 MG-MCG eCW1 ([facility]) Norethindrone Acet-Ethinyl Est 1-20 MG-MCG Norethindro ne Acet-Ethinyl Est 1-20 MG-MCG 09/02/2020 12:00:00 AM EDT 1.0 {tablet} activ e Norethindrone Acet-Ethinyl Est 1-20 MG-MCG eCW1 ([facility]) Norethindrone Acet-Ethinyl Est 1-20 MG-MCG Norethindro ne Acet-Ethinyl Est 1-20 MG-MCG 09/02/2020 12:00:00 AM EDT 1.0 {tablet} activ e Norethindrone Acet-Ethinyl Est 1-20 MG-MCG eCW1 ([facility]) Norethindrone Acet-Ethinyl Est 1-20 MG-MCG Norethindro ne Acet-Ethinyl Est 1-20 MG-MCG 09/02/2020 12:00:00 AM EDT 1.0 {tablet} activ e Norethindrone Acet-Ethinyl Est 1-20 MG-MCG eCW1 ([facility]) Norethindrone Acet-Ethinyl Est 1-20 MG-MCG Norethindro ne Acet-Ethinyl Est 1-20 MG-MCG 09/02/2020 12:00:00 AM EDT 1.0 {tablet} activ e Norethindrone Acet-Ethinyl Est 1-20 MG-MCG eCW1 ([facility]) Norethindrone Acet-Ethinyl Est 1-20 MG-MCG Norethindro ne Acet-Ethinyl Est 1-20 MG-MCG 09/02/2020 12:00:00 AM EDT 1.0 {tablet} activ e Norethindrone Acet-Ethinyl Est 1-20 MG-MCG eCW1 ([facility]) Norethindrone Acet-Ethinyl Est 1-20 MG-MCG Norethindro ne Acet-Ethinyl Est 1-20 MG-MCG 09/02/2020 12:00:00 AM EDT 1.0 {tablet} activ e Norethindrone Acet-Ethinyl Est 1-20 MG-MCG eCW1 ([facility]) Norethindrone Acet-Ethinyl Est 1-20 MG-MCG Norethindro ne Acet-Ethinyl Est 1-20 MG-MCG 09/02/2020 12:00:00 AM EDT 1.0 {tablet} activ e Norethindrone Acet-Ethinyl Est 1-20 MG-MCG eCW1 ([facility]) Norethindrone Acet-Ethinyl Est 1-20 MG-MCG Norethindro ne Acet-Ethinyl Est 1-20 MG-MCG 09/02/2020 12:00:00 AM EDT 1.0 {tablet} activ e Norethindrone Acet-Ethinyl Est 1-20 MG-MCG eCW1 ([facility]) Norethindrone Acet-Ethinyl Est 1-20 MG-MCG Norethindro ne Acet-Ethinyl Est 1-20 MG-MCG 09/02/2020 12:00:00 AM EDT 1.0 {tablet} activ e Norethindrone Acet-Ethinyl Est 1-20 MG-MCG eCW1 ([facility]) Norethindrone Acet-Ethinyl Est 1-20 MG-MCG Norethindro ne Acet-Ethinyl Est 1-20 MG-MCG 09/02/2020 12:00:00 AM EDT 1.0 {tablet} activ e Norethindrone Acet-Ethinyl Est 1-20 MG-MCG eCW1 ([facility]) Norethindrone Acet-Ethinyl Est 1-20 MG-MCG Norethindro ne Acet-Ethinyl Est 1-20 MG-MCG 09/02/2020 12:00:00 AM EDT 1.0 {tablet} activ e Norethindrone Acet-Ethinyl Est 1-20 MG-MCG eCW1 ([facility]) Norethindrone Acet-Ethinyl Est 1-20 MG-MCG Norethindro ne Acet-Ethinyl Est 1-20 MG-MCG 09/02/2020 12:00:00 AM EDT 1.0 {tablet} activ e Norethindrone Acet-Ethinyl Est 1-20 MG-MCG eCW1 ([facility]) Norethindrone Acet-Ethinyl Est 1-20 MG-MCG Norethindro ne Acet-Ethinyl Est 1-20 MG-MCG 09/02/2020 12:00:00 AM EDT 1.0 {tablet} activ e Norethindrone Acet-Ethinyl Est 1-20 MG-MCG eCW1 ([facility]) Norethindrone Acet-Ethinyl Est 1-20 MG-MCG Norethindro ne Acet-Ethinyl Est 1-20 MG-MCG 09/02/2020 12:00:00 AM EDT 1.0 {tablet} activ e Norethindrone Acet-Ethinyl Est 1-20 MG-MCG eCW1 ([facility]) Norethindrone Acet-Ethinyl Est 1-20 MG-MCG Norethindro ne Acet-Ethinyl Est 1-20 MG-MCG 09/02/2020 12:00:00 AM EDT 1.0 {tablet} activ e Norethindrone Acet-Ethinyl Est 1-20 MG-MCG eCW1 ([facility]) Norethindrone Acet-Ethinyl Est 1-20 MG-MCG Norethindro ne Acet-Ethinyl Est 1-20 MG-MCG 09/02/2020 12:00:00 AM EDT 1.0 {tablet} activ e Norethindrone Acet-Ethinyl Est 1-20 MG-MCG eCW1 ([facility]) Aimovig Aimovig 08/26/2020 12:00:00 AM EDT SUBCUTANEOUS completed MEDENT ([facility]) Emgality Emgality 08/26/2020 12:00:00 AM EDT SUBCUTANEOUS active MEDENT ([facility]) 20 mg 08/20/2020 12:00:00 AM [...] EST a ctive Adderall 20 MG eCW1 ([facility]) Amphetamine aspartate 5 MG / Amphetamine Sulfate 5 MG / Dextroamphetamine saccharate 5 MG / Dextroamphetamine Sulfate 5 MG Oral Tablet [Adderall] Adderall 20 MG Adderall 20 MG 07/19/2020 12:00:00 AM EST a ctive Adderall 20 MG eCW1 ([facility]) Amphetamine aspartate 5 MG / Amphetamine Sulfate 5 MG / Dextroamphetamine saccharate 5 MG / Dextroamphetamine Sulfate 5 MG Oral Tablet [Adderall] Adderall 20 MG Adderall 20 MG 07/19/2020 12:00:00 AM EST a ctive Adderall 20 MG eCW1 ([facility]) Amphetamine aspartate 5 MG / Amphetamine Sulfate 5 MG / Dextroamphetamine saccharate 5 MG / Dextroamphetamine Sulfate 5 MG Oral Tablet [Adderall] Adderall 20 MG Adderall 20 MG 07/19/2020 12:00:00 AM EST a ctive Adderall 20 MG eCW1 ([facility]) Amphetamine aspartate 5 MG / Amphetamine Sulfate 5 MG / Dextroamphetamine saccharate 5 MG / Dextroamphetamine Sulfate 5 MG Oral Tablet [Adderall] Adderall 20 MG Adderall 20 MG 07/19/2020 12:00:00 AM EST a ctive Adderall 20 MG eCW1 ([facility]) Amphetamine aspartate 5 MG / Amphetamine Sulfate 5 MG / Dextroamphetamine saccharate 5 MG / Dextroamphetamine Sulfate 5 MG Oral Tablet [Adderall] Adderall 20 MG Adderall 20 MG 07/19/2020 12:00:00 AM EST a ctive Adderall 20 MG eCW1 ([facility]) Amphetamine aspartate 5 MG / Amphetamine Sulfate 5 MG / Dextroamphetamine saccharate 5 MG / Dextroamphetamine Sulfate 5 MG Oral Tablet [Adderall] Adderall 20 MG Adderall 20 MG 07/19/2020 12:00:00 AM EST a ctive Adderall 20 MG eCW1 ([facility]) Amphetamine aspartate 5 MG / Amphetamine Sulfate [...] EST a ctive Adderall 20 MG eCW1 ([facility]) 40 mg 05/29/2020 12:00:00 AM EST tablet [...] HCL 05/28/2020 12:00:00 AM EST active MEDENT ([facility]) topiramate 25 MG Oral Tablet Topiramate 05/28/2020 12:00:00 AM EST completed MEDENT ([facility]) 500 mg 05/16/2020 12:00:00 [...] EST a ctive Adderall 20 MG eCW1 ([facility]) Amphetamine aspartate 5 MG / Amphetamine Sulfate 5 MG / Dextroamphetamine saccharate 5 MG / Dextroamphetamine Sulfate 5 MG Oral Tablet [Adderall] Adderall 20 MG Adderall 20 MG 04/17/2020 12:00:00 AM EST a ctive Adderall 20 MG eCW1 ([facility]) Amphetamine aspartate 5 MG / Amphetamine Sulfate 5 MG / Dextroamphetamine saccharate 5 MG / Dextroamphetamine Sulfate 5 MG Oral Tablet [Adderall] Adderall 20 MG Adderall 20 MG 04/17/2020 12:00:00 AM EST a ctive Adderall 20 MG eCW1 ([facility]) Amphetamine aspartate 5 MG / Amphetamine Sulfate 5 MG / Dextroamphetamine saccharate 5 MG / Dextroamphetamine Sulfate 5 MG Oral Tablet [Adderall] Adderall 20 MG Adderall 20 MG 04/17/2020 12:00:00 AM EST a ctive Adderall 20 MG eCW1 ([facility]) Amphetamine aspartate 5 MG / Amphetamine Sulfate 5 MG / Dextroamphetamine saccharate 5 MG / Dextroamphetamine Sulfate 5 MG Oral Tablet [Adderall] Adderall 20 MG Adderall 20 MG 04/17/2020 12:00:00 AM EST a ctive Adderall 20 MG eCW1 ([facility]) 20 mg 03/19/2020 12:00:00 AM EDT capsule [...] EDT a ctive Adderall 20 MG eCW1 ([facility]) Amphetamine aspartate 5 MG / Amphetamine Sulfate 5 MG / Dextroamphetamine saccharate 5 MG / Dextroamphetamine Sulfate 5 MG Oral Tablet [Adderall] Adderall 20 MG Adderall 20 MG 03/15/2020 12:00:00 AM EDT a ctive Adderall 20 MG eCW1 ([facility]) Amphetamine aspartate 5 MG / Amphetamine Sulfate 5 MG / Dextroamphetamine saccharate 5 MG / Dextroamphetamine Sulfate 5 MG Oral Tablet [Adderall] Adderall 20 MG Adderall 20 MG 03/15/2020 12:00:00 AM EDT a ctive Adderall 20 MG eCW1 ([facility]) 20 mg 03/15/2020 12:00:00 AM EDT tablet [...] type / Coverage type Policy ID Covered democrat ID Covered democrat's relationship to alberto Policy Alberto Plan Information [facility] [id number] SP [id number] [facility] Community Plan Primary [id number] MEDICAID GME [id number] S [id number] [facility] HEA [id number] S [id number] HEA [id number] SELF PAY ONLY [id number] SP [id number] [facility](MCAID) O [id number] S [id number] [place] [id number] SP [id number] MEDICAID [id number] SP [id number] [facility] COMMUNITY PLAN MCDO UN SP UN ANSI-Medicaid [id number] ANSI-Medicaid [id number] ANSI-Medicaid [id number] ANSI-Medicaid [id number] ANSI-Medicaid [id number] ANSI-Medicaid [id number] ANSI-Medicaid [id number] ANSI-Medicaid [id number] ANSI-Medicaid [id number] ANSI-Medicaid [id number] ANSI-Medicaid [id number] ANSI-Medicaid [id number] [facility] Health Maintenance Organization ([facility]) [id number] Self [id number] ANSI-Medicaid [id number] ANSI-Medicaid [id number] ANSI-Medicaid [id number] ANSI-Medicaid [id number] ANSI-Medicaid [id number] ANSI-Medicaid [id number] ANSI-Medicaid [id number] ANSI-Medicaid [id number] ANSI-Medicaid [id number] ANSI-Medicaid [id number] ANSI-Medicaid [id number] ANSI-Medicaid [id number] ANSI-Medicaid [id number] ANSI-Medicaid [id number] ANSI-Medicaid [id number] ANSI-Medicaid [id number] ANSI-Medicaid [id number] ANSI-Medicaid [id number] ANSI-Medicaid [id number] ANSI-Medicaid [id number] ANSI-Medicaid [id number] ANSI-Medicaid [id number] ANSI-Medicaid [id number] ANSI-Medicaid [id number] ANSI-Medicaid [id number] ANSI-Medicaid [id number] ANSI-Medicaid [id number] ANSI-Medicaid [id number] ANSI-Medicaid [id number] ANSI-Medicaid [id number] ANSI-Medicaid [id number] ANSI-Medicaid [id number] ANSI-Medicaid [id number] ANSI-Medicaid [id number] ANSI-Medicaid [id number] ANSI-Medicaid [id number] ANSI-Medicaid [id number] ANSI-Medicaid [id number] ANSI-Medicaid [id number] [facility] [id number] MEDICAID [id number] SP [id number] MEDICAID M [id number] S [id number] [facility] Health Maintenance Organization (O) [id number] Self [id number] [facility] COMMUNITY PLAN [facility] [id number] SP [id number] [facility] Health Maintenance Organization (O) [id number] Self [id number] [facility] COMMUNITY PLAN [facility] [id number] SP [id number] [facility] Health Maintenance Organization (O) [id number] Self [id number] SELF PAY UNAVAILABLE SP UNAVAILA BLE [facility] [id number] SP [id number] [facility] [id number] SP [id number] [facility] [id number] [facility] [id number] [facility] BLUE [id number] SP [id number] [facility] [id number] [place] [id number] [facility] Health Maintenance Organization ([facility]) [id number] Self [id number] [facility] PLAN MCDO UNAVAILABLE SP UNAVAILABLE [facility] Health Maintenance Organization ([facility]) [id number] Self [facility] COMMUNITY PLAN MCDO [id number] SP [id number] [facility] COMMUNITY PLAN [facility] [id number] SP [id number] Problems, Conditions, and Diagnoses Code Display Name Description Problem Type Effective Dates Data Source(s) Q28.2 Arteriovenous malformation of cerebral v essels Arteriovenous malformation of cerebral vessels Diagnosis 01/16/2021 12:00:00 AM EDT [facility] 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/2021 12: 00:00 AM EDT eCW1 ([facility]) 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 Problem 12/02/2020 12:00:00 AM EDT eCW1 ([facility]) G62.9 [id number] Neuropathy Problem 11/22/2020 12:00:00 AM ED T eCW1 ([facility]) R20.2 [id number] Paresthesias Problem 11/01/2020 12:00:00 AM EDT eCW1 ([facility]) Q27.30 [id number] Arteriovenous malformation Problem 12:00:00 AM EDT eCW1 ([facility]) [id number] Migraine Migraine Problem 05/28/2020 12:00:00 AM ES T MEDENT ([facility], ) Surgeries/Procedures Procedure Description Date Indications Data Source(s) OFFICE OUTPATIENT VISIT 15 MINUTES 04/01/2021 12:00:00 AM EDT MED[facility] ([facility], ) OFFICE OUTPATIENT NEW 30 MINUTES 03/12/2021 12:00:00 A M EDT [facility] ([facility], ) OFFICE OUTPATIENT VISIT 25 MINUTES 03/06/2021 12:00:00 AM EDT MED[facility] ([facility], ) OFFICE OUTPATIENT VISIT 25 MINUTES 12/31/2020 12:00:00 AM EDT [facility] ([facility]) OFFICE OUTPATIENT VISIT 40 MINUTES 11/29/2020 12:00:00 AM EDT [facility] ([facility]) OFFICE OUTPATIENT VISIT 25 MINUTES 11/21/2020 12:00:00 AM EDT MED[facility] ([facility], ) SBSQ OBSERVATION CARE/DAY LOW SEVERITY 11/17/2020 12:0 0:00 AM EDT [facility] ([facility]) INITIAL OBSERVATION CARE/DAY MODERATE SEVERITY 021 12:00:00 AM EDT [facility] ([facility]) HOSPITAL DISCHARGE DAY MANAGEMENT > 30 MIN 10/27/2020 12:00:00 AM EDT [facility] ([facility]) SBSQ HOSPITAL CARE/DAY 25 MINUTES 10/26/2020 12:00:00 AM EDT [facility] ([facility]) Vertebral Artery Catheter Placement 10/25/2020 12:00:0 0 AM EDT [facility] ([facility]) Each Intracranial Branch Of The Internal Corotid/Vertebral 10/25/2020 12:00:00 AM EDT [facility] Moderate Sedation Services; Same Phys Intl 15 Mins; PT >= 5 Years 10/25/2020 12:00:00 AM EDT [facility] ([facility]) OFFICE OUTPATIENT VISIT 25 MINUTES 10/01/2020 12:00:00 AM EDT MED[facility] ([facility]) HOSPITAL DISCHARGE DAY MANAGEMENT > 30 MIN 09/10/2020 12:00:00 AM EDT MED[facility] ([facility]) Moderate Sedation Services; Same Phys Intl 15 Mins; PT >= 5 Years 09/09/2020 12:00:00 AM EDT [facility] ([facility]) Transcatheter Therapy Embolization Any Method 09/10/19 12:00:00 AM EDT MED[facility] ([facility]) Transcatheter Permanent Occlusion/Embolization Percutaneous VERIFICATION CLERK 09/09/2020 12:00:00 AM EDT [facility] ([facility]) Catheter Placement Arterial System [...] 40 MINUTES 08/23/2020 12:00:00 AM EST [facility] ([facility]) TOBACCO USE CESSATION INTERMEDIATE 3-10 MINUTES 2020 12:00:00 AM EST [facility] ([facility]) Angiography Internal Corotid Of The Ipsil Intrac Circulation 08/15/2020 12:00:00 AM EST [facility] ([facility]) Vertebral Artery Catheter Placement 08/15/2020 12:00:0 0 AM EST [facility] ([facility]) External Artery Carotid Cath PLMNT 08/15/2020 12:00:00 AM EST [facility] ([facility]) Moderate Sedation Services; Same Phys Intl 15 Mins; PT >= 5 Years 08/15/2020 12:00:00 AM EST [facility] ([facility]) OFFICE OUTPATIENT NEW 45 MINUTES 08/07/2020 12:00:00 A M EST [facility] ([facility]) TOBACCO USE CESSATION INTERMEDIATE 3-10 MINUTES 2020 12:00:00 AM EST [facility] ([facility]) Magnetic Resonance Angiogtaphy Head W/O Contrast Material(S) 06/18/2020 12:00:00 AM EST [facility] ([facility]) Magnetic Resonance Angiogtaphy Head W/O Contrast Material(S) 06/18/2020 12:00:00 AM EST [facility] ([facility]) Results ID Date Data Source [id number] 03/04/2021 12:00:00 AM EDT [facility] Name Value Range Interpretation Code Description Data Carolann rce(s) Supporting Document(s) SARS-CoV2 Rapid Antigen Negative [facility] This lab was reported by [facility]. ID Date Data Source [id number] 01/20/2021 01:06:12 PM EDT [facility] Name Value Range Interpretation Code Description Data Carolann rce(s) Supporting Document(s) RT - Initial Consult Visit JORGE v1 [facility] [id number]56zAX7pVvkpBEcnUJcOzv2OUqdCxVnkJY8dxxF tKQ [file] he3Zksgm3mCqM27pyEkNSP572adDI0ra9/fEZc5SgwK697++aH/bgSZjS2eyAx37OsQ58xgbIsUae+MANAGER OF [employer] [file] XezxLcc6Us8G63OcUJWEZCRU1UhPWDVwMw1N99tg9641iyG8nj6P9d/P6V/Mary Ann/ulZvFxq5VfKepEg5 jb8tkT0NlAXGtcQ5/vphNCF3lVgyD+BFY+viv4z/xRD79bnb42pZca7L3GFC1h5cLRu1sE0OQoGa8+Ea bTzvOCb1RRPUi95K2uEJwB7J5rGyFLr2LbzDSNPF+K uF/scATIE+M7A2RNBtZ/j1OGVyy+FEEUFrKAcA8O570LmtXobRqZ979MOvisrQ1fBNUEEKNNDw1dzw/H iUz8P0L2xQhuwuAxEqqckVgFw7gWhZzOXr9NaK1Pwr1zEpwVbR9H8JrYfFHQ1NvGRm0QM1ljXN97a88m j2+C7llSU2Ci4SrSHyE2CLLCgfD+Mr0F7R+FZ8xrXe 4w/GG/yrOq+BAMHRbTUErOUNxteToc0V8BERFS1MotdgM2rr/QxlCJftpoModrkZOnzSkkvi4So/Glsn 06uJ4X71AdmB6fNOE4nVdxKcZ0N/g3bXgjO9yhLW4ZaosJszJ5H7YxqE1MQWPFVp1eitGPLv4hEeU2M6 HXixI+1Ocwc9vjVY+qwR7gQ+/Q4NoR+eOmks9RT+Ea A2ilbDGT6mph8VBVUID4KBjMq9OGlC5jtCpfEYzLaEbRQdoT5HTa5xF9B5DiOX4LKw+Sfi3/AIv84/QZ henry+V+lFwNuTdxjKYPO9/7b+h8QwOJ1T1fr1A/dY5CaiF12hKpT1+YUkXXMVrP7VEoW4zEm3mMQfo5hoX JRVYjIUMhnfSeqhcJcisquA0dHzjvgEs1ekcmbbyP/ [file] KpZVBSGQsiYa3doEFaKVFiWk2QB9IafqTdNfjEWy 4+MNbLIgN0SVU0gPEmNo2RBZF3BQc8ZNjpCOSVNm1Z ID Date Data Source [id number] 11/29/2020 03:46:00 PM EDT Magnetic Diag nostic [...] rce(s) Supporting Document(s) ID Date Data Source [id number] 11/17/2020 09:19:00 AM EDT [facility] DATE OF EXAM: 1EXAM: CT Head wi [...] the left midbrain. Professional interpretation performed at [facility] .End of diagnostic report for accession: [id number] Interpreted: Génesis Andrews MDTranscribed: 11/17/2020 09:17 AMSigned: 11/17/2020 09:19 AM Génesis Andrews MD N: [id number] [facility] # [id number] BILL # [id number] Name Value Range Interpretation Code Description Data Carolann rce(s) Supporting Document(s) ID Date Data Source [id number] 11/16/2020 09:21:00 AM EDT [facility] [place] [facility] Name Value Range Interpretation Code Description Data Carolann rce(s) Supporting Document(s) SODIUM 141 mmol/L (136-145) [facility] [place] [place] [facility] POTASSIUM 4.0 mmol/L (3.6-5.2) [facility] [place] [place] [facility] CHLORIDE 106 mmol/L (100-108) [facility] [place] [place] [facility] CO2 27 mmol/L (22-31) [facility] [place] [place] [facility] ANION GAP 8 mmol/L (7-16) [facility] [place] [place] [facility] UREA NITROGEN 19 mg/dL (7-24) [facility] [place] [place] [facility] CREATININE 0.95 mg/dL (0.60-1.00) [facility] [place] [place] [facility] BUN/CREAT RATIO 20.0 RATIO (10.0-20.0) [facility] GLUCOSE 142 mg/dL (70-99) H [facility] [place] [facility] CALCIUM 8.4 mg/dL (8.4-10.2) [facility] [place] [place] [facility] GFR >60 ml/min/1.73m2 (>59) [facility] [place] [facility] GFR ( AMER) >60 ml/min/1.73m2 (>59) [facility] [place] [place] [facility] GFR INTERPRETATION [facility] --NORMAL KIDNEY FUNCTION OR MILD DISEASE - GFR >OR= 60CHRONIC KIDNEY DISEASE - GFR 15 - 59RENAL FAILURE - GFR <15 Est. GFR calculation based on the MDRDstudy equation, which assumes a steadystate for creatinine. Est. GFR should notbe used for medication dosing. ID Date Data Source [id number] 11/16/2020 09:19:10 AM EDT [facility] [place] [place] [facility] Name Value Range Interpretation Code Description Data Carolann rce(s) Supporting Document(s) WBC 10.2 10*3/uL (4.1-11.0) [facility] [place] [place] [facility] RBC 4.03 10*6/uL (4.00-5.40) [facility] [place] [place] [facility] HGB 11.9 g/dL (12.0-16.0) L [facility] [place] [facility] HCT 36.0 % (36.0-47.0) [facility] [place] [place] [facility] MCV 89.2 fL (80.0-95.0) [facility] [place] [place] [facility] MCH 29.4 pg (27.0-32.0) [facility] [place] [place] [facility] MCHC 32.9 g/dL (32.0-36.0) [facility] [place] [place] [facility] RDW 13.9 % (10.5-14.5) [facility] [place] [place] [facility] PLT 279 10*3/uL (150-450) [facility] [place] [place] [facility] MPV 8.0 fL (7.1-10.7) [facility] [place] [facility] NEUT % 65.8 % (35.0-75.0) [facility] [place] [place] [facility] LYMPH % 24.5 % (16.0-52.0) [facility] [place] [place] [facility] MONO % 7.1 % (0.0-8.0) [facility] [place] [place] [facility] EOS % 2.0 % (0.0-5.0) [facility] [place] [place] [facility] BASO % 0.6 % (0.0-4.0) [facility] [place] [facility] NEUT # 6.7 10*3/uL (1.8-7.7) [facility] [place] [facility] LYMPH # 2.5 10*3/uL (1.2-4.8) [facility] [place] [place] [facility] MONO # 0.7 10*3/uL (0.0-0.8) [facility] [place] [place] [facility] Eosinophils [#/volume] in Blood by Automated count 0.2 10*3/uL (0.0-0 .5) [facility] [place] [facility] BASO # 0.1 10*3/uL (0.0-0.2) [facility] [place] [place] [facility] ID Date Data Source [id number] 11/16/2020 09:26:11 AM EDT [facility] [place] [facility] Name Value Range Interpretation Code Description Data Carolann rce(s) Supporting Document(s) URINE WBC (0-5) [facility] [place] [facility] URINE RBC (0-2) [facility] [place] [facility] EPITHELIAL CELLS 2+ [HPF] [facility] [place] [facility] BACTERIA 1+ [HPF] [facility] [place] [place] [facility] MUCUS 1+ [HPF] [facility] [place] [place] [facility] AMORPHOUS 1+ [HPF] [facility] [place] [place] [facility] ID Date Data Source [id number] 11/16/2020 09:10:30 AM EDT [facility] [place] Name Value Range Interpretation Code Description Data Carolann rce(s) Supporting Document(s) COLOR [facility] [place] [facility] APPEARANCE [facility] [place] [facility] SPEC GRAV URINE 1.033 (1.003-1.030) H [facility] PH URINE 5.0 (5.0-7.5) [facility] [place] [place] [facility] LEUK ESTERASE 1+ (NEG) A [facility] [place] [place] [facility] NITRITE URINE (NEG) [facility] [place] [place] [facility] PROTEIN URINE (NEG) [facility] [place] [facility] GLUCOSE URINE (NEG) [facility] [place] [place] [facility] KETONE URINE (NEG) [facility] [place] [facility] UROBILINOGEN 0.2 mg/dL (0-1.0) [facility] [place] [facility] BILIRUBIN URINE (NEG) [facility] [place] [facility] BLOOD/HGB URINE (NEG) [facility] [place] [facility] ID Date Data Source [id number] 11/16/2020 01:37:00 AM EDT [facility] Name Value Range Interpretation Code Description Data Carolann rce(s) Supporting Document(s) SARS coronavirus 2 RNA [Presence] in Res piratory specimen by REYNALDO with probe detection NEGATIVE [facility] This lab was ordered by [facility] a nd reported by [facility]. ID Date Data Source [id number] 10/26/2020 11:13:21 PM EDT [facility] [place] [place] [facility] Name Value Range Interpretation Code Description Data Carolann rce(s) Supporting Document(s) POC GLUCOSE 141 mg/dL (70-99) H [facility] [place] Jay Jay Morocho NOTIFIED NURSEPERFORMED BY CLINICAL S TAFF ID Date Data Source [id number] 10/26/2020 07:30:37 AM EDT [facility] Name Value Range Interpretation Code Description Data Carolann rce(s) Supporting Document(s) POC GLUCOSE 134 mg/dL (70-99) H [facility] [place] Jay Jay Morocho NOTIFIED NURSEPERFORMED BY CLINICAL S TAFF ID Date Data Source [id number] 10/26/2020 08:05:00 AM EDT [facility] DATE OF EXAM: 10/26/2020XAM: CT Head WO [...] change. A contemporaneous report was provided by [facility] at the time of this examination, reporting similar findings. Professional interpretation performed at [facility] .End of diagnostic report for accession: [id number] Interpreted: Francisca Retana MDTranscribed: 10/26/2020 08:00 AMSigned: 10/26/2020 08:05 AM Francisca Retana MD [facility] # [id number] [facility] # [id number] Name Value Range Interpretation Code Description Data Carolann rce(s) Supporting Document(s) ID Date Data Source [id number] 10/26/2020 03:05:23 AM EDT [facility] [place] [place] [facility] Name Value Range Interpretation Code Description Data Carolann rce(s) Supporting Document(s) CALCIUM IONIZED 5.08 mg/dL (4.64-5.28) [facility] IONIZED CALCIUM NORMALIZED TO PH 7.40 AN D 37 DEGREES C. ID Date Data Source [id number] 10/26/2020 03:03:27 AM EDT [facility] [place] [place] [facility] Name Value Range Interpretation Code Description Data Carolann rce(s) Supporting Document(s) PHOSPHORUS 2.9 mg/dL (2.5-4.5) [facility] [place] [place] [facility] ID Date Data Source [id number] 10/26/2020 03:03:27 AM EDT [facility] [place] [place] [facility] Name Value Range Interpretation Code Description Data Carolann rce(s) Supporting Document(s) MAGNESIUM 1.8 mg/dL (1.7-2.4) [facility] [place] [place] [facility] ID Date Data Source [id number] 10/26/2020 03:03:27 AM EDT [facility] [place] [place] [facility] Name Value Range Interpretation Code Description Data Carolann rce(s) Supporting Document(s) SODIUM 144 mmol/L (136-145) [facility] [place] [facility] POTASSIUM 3.8 mmol/L (3.6-5.2) [facility] [place] [facility] CHLORIDE 111 mmol/L (100-108) H [facility] [place] [facility] CO2 27 mmol/L (22-31) [facility] [place] [place] [facility] ANION GAP 6 mmol/L (7-16) L [facility] [place] [facility] UREA NITROGEN 9 mg/dL (7-24) [facility] [place] [facility] CREATININE 0.98 mg/dL (0.60-1.00) [facility] [place] [facility] BUN/CREAT RATIO 9.2 RATIO (10.0-20.0) L [facility] [place] [facility] GLUCOSE 122 mg/dL (70-99) H [facility] [place] [facility] CALCIUM 7.8 mg/dL (8.4-10.2) L [facility] [place] [facility] GFR >60 ml/min/1.73m2 (>59) [facility] [place] [facility] GFR ( AMER) >60 ml/min/1.73m2 (>59) [facility] [place] [facility] GFR INTERPRETATION [facility] --NORMAL KIDNEY FUNCTION OR MILD DISEASE - GFR >OR= 60CHRONIC KIDNEY DISEASE - GFR 15 - 59RENAL FAILURE - GFR <15 Est. GFR calculation based on the MDRDstudy equation, which assumes a steadystate for creatinine. Est. GFR should notbe used for medication dosing. ID Date Data Source [id number] 10/26/2020 02:37:20 AM EDT [facility] [place] [facility] Name Value Range Interpretation Code Description Data Carolann rce(s) Supporting Document(s) WBC 11.9 10*3/uL (4.1-11.0) H [facility] [place] [facility] RBC 4.13 10*6/uL (4.00-5.40) [facility] [place] [facility] HGB 12.2 g/dL (12.0-16.0) [facility] [place] [facility] HCT 36.6 % (36.0-47.0) [facility] [place] [facility] MCV 88.7 fL (80.0-95.0) [facility] [place] [place] [facility] MCH 29.6 pg (27.0-32.0) [facility] [place] [place] [facility] MCHC 33.4 g/dL (32.0-36.0) [facility] [place] [facility] RDW 12.9 % (10.5-14.5) [facility] [place] [place] [facility] PLT 243 10*3/uL (150-450) [facility] [place] [place] [facility] MPV 8.3 fL (7.1-10.7) [facility] [place] ID Date Data Source [id number] 10/25/2020 07:15:00 PM EDT [facility] DATE OF EXAM: 10/25/2020T HEAD [...] midbrain. L2End of diagnostic report for accession: [id number] Interpreted: Hellen Mendieta DOTranscribed: 10/25/2020 07:12 PMSigned: 10/25/2020 07:15 PM Hellen Mendieta DO ----- [facility] # [id number] [facility] # [id number] Name Value Range Interpretation Code Description Data Carolann rce(s) Supporting Document(s) ID Date Data Source [id number] 10/25/2020 01:07:00 PM EDT [facility] DATE OF EXAM: 10/25/2020XAM: CT [...] contrast and hemorrhage. Professional interpretation performed at [facility] .End of diagnostic report for accession: [id number] Interpreted: Génesis Andrews MDTranscribed: 10/25/2020 01:03 PMSigned: 10/25/2020 01:07 PM Génesis Andrews MD [facility] # [id number] BILL # [id number] Name Value Range Interpretation Code Description Data Carolann rce(s) Supporting Document(s) ID Date Data Source [id number] 10/30/2020 03:25:00 PM EDT [facility] DATE OF EXAM: 10/25/2020ate of Procedur e: 10/25/2020reoperative Diagnosis: Left cerebellar AVMPostoperative Diagnosis: Left cerebellar AVM Procedure(s):1. Diagnostic cerebral angiogram: - Left subclavian cervical (2D); Left vertebral cervical/cerebral (2D); Left PICA, EMBEDDED SOFTWARE TEST ENGINEER and SCA superselective microcatheter cerebral (2D); Right femoral runoff (2D)2. Conscious sedation for 42 minutes3. Right femoral 6/7F Mynx Pot Annealer closure device placed for arteriotomy closure Surgeon: [...] confirmed the patient was placed on the [employer] biplane angio table in supine position. The [...] the modified Seldinger technique with a 5 Serbian micropuncture kit. I then placed a 6 Serbian sheath into the right femoral artery without any complications or difficulties. I then placed the 5 Serbian angled glide catheter over a glide wire [...] a small supplying vessel from either the EMBEDDED SOFTWARE TEST ENGINEER, SCA or PICA. I then selectively catheterized these vessels with an Eschelon-10 microcatheter over a Fathom-14 microwire, and the left PICA appeared to not have any branches supplying the AVM, but rather appeared generally normal. The left EMBEDDED SOFTWARE TEST ENGINEER initial run appeared to fill a small wedding cake designer branch with drainage to the vein of [...] pulled the microcatheter to the proximal left EMBEDDED SOFTWARE TEST ENGINEER and a run from that superselective microcatheter cerebral angiogram run showed that there was perhaps a very small questionable feeding branch to the AVM, but no significant early venous drainage was appreciated. Additionally, there was otherwise normal arterial branching pattern seen from the left EMBEDDED SOFTWARE TEST ENGINEER and no contrast extravasation or distal thromboembolic [...] located more superiorly as seen on the CROATIAN projection appears to supply all normal cerebellum. [...] site. I then placed a 6/7F Mynx Pot Annealer closure device in the right femoral arteriotomy [...] the left vertebral artery injection shows an Smithton glue cast in the left superior cerebellum and there is a very trace amount of early venous drainage, with a small supplying vessel from either the EMBEDDED SOFTWARE TEST ENGINEER, SCA or PICA. Superselective microcatheter cerebral angiogram runs from the left PICA appeared to not have any branches supplying the AVM, but rather appeared generally normal. The left EMBEDDED SOFTWARE TEST ENGINEER initial run appeared to fill a small wedding cake designer branch with drainage to the vein of [...] up microcatheter run from the proximal left EMBEDDED SOFTWARE TEST ENGINEER showed that there was perhaps a very small questionable feeding branch to the AVM, but no significant early venous drainage was appreciated. Additionally, there was otherwise normal arterial branching pattern seen from the left EMBEDDED SOFTWARE TEST ENGINEER and no contrast extravasation or distal thromboembolic [...] located more superiorly as seen on the CROATIAN projection appears to supply all normal cerebellum. [...] AVM, and there was a small left EMBEDDED SOFTWARE TEST ENGINEER wedding cake designer rupture with contrast extravasation. The small left SCA branch is too distal and small to safely embolize and either surgical resection or Cyberknife stereotactic radiosurgery or possibly even transvenous embolization are options available for treating the residual AVM. The small wedding cake designer hemorrhage will likely resolve spontaneously, but because [...] this plan.End of diagnostic report for accession: [id number] Interpreted: Lexa Padilla MDTranscribed: 10/25/2020 12:58 PMSigned: 10/30/2020 03:25 PM Lexa Padilla MD [facility] # [id number] BILL # [id number] Name Value Range Interpretation Code Description Data Carolann rce(s) Supporting Document(s) ID Date Data Source [id number] 10/21/2020 02:00:00 PM EDT [facility] ([facility]) Name Value Range Interpretation Code Description Data Carolann rce(s) Supporting Document(s) Laboratory test finding (navigational concept) Laboratory test result [facility] ([place]) ASSAY INFORMATION: Real Time RT-PCR NOTE: The COVID-19 assay has been cleared by the U.S. Food and Drug Administration under the Emergency Use Authorization (EUA). [facility] are designated as high complexity laboratories by the Clinical Laboratory Improvement Amendments of 1988(CLIA) and are qualified to perform this test. Not Detected ID Date Data Source [id number] 10/21/2020 02:00:00 PM EDT [facility] Name Value Range Interpretation Code Description Data Carolann rce(s) Supporting Document(s) SARS-CoV-2 (COVID-19) RNA [Presence] in Respiratory specimen by REYNALDO with probe detection Not Detected [facility] This lab was ordered by [facility] and reported by [facility] ID Date Data Source [id number] 10/08/2020 01:35:00 PM EDT [facility] ([facility]) Name Value Range Interpretation Code Description Data Carolann rce(s) Supporting Document(s) Glucose, Fasting 89 mg/dL 70-100 Normal (applies to non-numeric results) [facility] ([place]) Blood Urea Nitrogen 11 mg/dL 7-18 Normal (applies to non-nume sumanth results) [facility]) Glomerular Filtration Rate Laboratory test result Normal (applies to non- numeric results) [facility] ([place]) <content>Units are mL/min/1.73 m2</content>
<content></content>
<content>Chronic Kidney Disease Staging per NKF:</content>
<content></content>
<content>Stage I & II GFR >=60 Normal to Mildly Decreased</content>
<content>Stage III GFR 30- 59 Moderately Decreased</content>
<content>Stage IV GFR 15-29 Severely Decreased</content>
<content>Stage V GFR <15 Very Little GFR Left</content>
<content>ESRD GFR <15 on DEPOSIT REFUND CLERK</content>
<content></content> Creatinine For GFR 0.97 mg/dL 0.55-1.30 Normal (applies to non -numeric results) [facility] ([place]) Sodium Level 139 meq/L 136-145 Normal (applies to non-numeric res ults) [facility]) Potassium Serum 3.9 meq/L 3.5-5.1 Normal (applies to non-numeric results) [facility] ([place]) Carbon Dioxide Level 25 meq/L 21-32 Normal (applies to non-num eri results) [facility]) Chloride Level 107 meq/L 98-107 Normal (applies to non-numeric r esults) [facility]) Calcium Level 8.8 mg/dL 8.5-10.1 Normal (applies to non-numeric re sults) [facility]) Anion Gap 7 meq/L 8-16 Below low normal [facility] ([facility]) ID Date Data Source [id number] 10/08/2020 01:35:00 PM EDT [facility] ([facility]) Name Value Range Interpretation Code Description Data Carolann rce(s) Supporting Document(s) Inr 0.90 Normal (applies to non-numeric resul ts) [facility] THERAPUTIC HUMAN INR VALUES INDICATIONS NORMAL RANGES PROPHYLAXIS/TREATMENT OF: VENOUS THROMBOSIS 2.0-3.0 PULMONARY EMBOLISM 2.0-3.0 PREVENTION OF SYSTEMIC EMBOLISM FROM: TISSUE HEART VALVES 2.0-3.0 ACUTE MYOCARDIAL INFARCTION 2.0-3.0 VALVULAR HEART DISEASE 2.0-3.0 ATRIAL FIBRILLATION 2.0-3.0 MECHANICAL VALVES(HIGH RISK) 2.5-3.5 RECURRENT MYOCARDIAL INFARCTION 2.5-3.5 Prothrombin Time 12.3 s 12.5-14.3 Normal (applies to non-numeric results) [facility] Partial Thromboplastin Time 20.8 s 24.2-38.5 Below low normal [facility]) ID Date Data Source [id number] 10/08/2020 01:35:00 PM EDT [facility] Name Value Range Interpretation Code Description Data Carolann rce(s) Supporting Document(s) Hemoglobin 12.8 g/dL 12.0-15.5 Normal (applies to non-numeric resul ts) [facility] ([facility]) White Blood Count 10.0 10 4.0-10.0 Normal (applies to non-numeri c results) [facility] ([place]) Red Blood Count 4.42 10 4.00-5.40 Normal (applies to non-numeric results) [facility] ([place]) Mean Corpuscular Volume 89.8 fl 80.0-96.0 Normal ( applies to non-numeric results) [facility] ([facility]) Hematocrit 39.7 % 36.0-47.0 Normal (applies to non-numeric resul ts) [facility] Mean Corpuscular Hemoglobin 29.0 pg 27.0-33.0 Norm al (applies to non-numeric results) [facility] ([facility]) Mean Corpuscular HGB Conc 32.2 g/dL 32.0-36.5 Normal (applies to non-numeric results) [facility] ([place]) Platelet Count, Automated 277 10 150-450 Normal (applies to non-numeric results) [facility] ([place]) Red Cell Distribution Width 12.3 % 11.5-14.5 Norm al (applies to non-numeric results) [facility] Neutrophils % 62.6 % 36.0-66.0 Normal (applies to non-numeric re sults) [facility] ([facility]) Lymph % 28.5 % 24.0-44.0 Normal (applies to non-numeric resul ts) [facility] ([facility]) Baso % 0.7 % 0.0-1.0 Normal (applies to non-numeric resul ts) [facility]) Eos % 1.9 % 0.0-3.0 Normal (applies to non-numeric resul ts) [facility] ([facility]) [place] % 5.9 % 2.0-8.0 Normal (applies to non-numeric resul ts) [facility] Nucleated Red Blood Cell % 0.0 % 0-0 Normal (applies to n on-numeric results) [facility] ([place]) Immature Granulocyte % 0.4 % 0-3.0 Normal (applies to non-n umeric results) [facility] ([place]) Lymph # 2.9 10 1.5-5.0 Normal (applies to non-numeric resul ts) [facility] ([place]) Neutrophils # 6.3 10 1.5-8.5 Normal (applies to non-numeric re sults) [facility] ([place]) Eos # 0.2 10 0.0-0.5 Normal (applies to non-numeric resul ts) [facility] ([place]) [place] # 0.6 10 0.0-0.8 Normal (applies to non-numeric resul ts) [facility] ([place]) Baso # 0.1 10 0.0-0.2 Normal (applies to non-numeric resul ts) [facility] ([place]) ID Date Data Source [id number] 09/11/2020 09:35:00 AM EDT [facility] DATE OF EXAM: 09/09/2020ate of Procedur e: 09/09/2020reoperative Diagnosis: Left cerebellar AVMPostoperative Diagnosis: Left cerebellar AVM Procedure(s):1. Diagnostic cerebral angiogram: - Left subclavian cervical (2D); Left vertebral cervical/cerebral (2D); Left SCA superselective microcatheter cerebral (2D); Right femoral runoff (2D)2. Left SCA branch to AVM Brevital testing (3mg IA and testing over 5 minutes)3. Left SCA branch to AVM embolization with Smithton 18 liquid embolic agent4. Conscious sedation for 45 minutes5. Right femoral 6/7F Mynx Pot Annealer closure device placed for arteriotomy closure Surgeon: [...] endovascular intervention for Brevital testing and subsequent Smithton liquid embolic material embolization of the AVM [...] comparing the signed consent with the name [facility] to confirm the proper medical record number, date of , and patient name and when this was confirmed the patient was placed on the [place] biplane angio table in supine position. The [...] the modified Seldinger technique with a 5 Serbian micropuncture kit. I then placed a 6 Serbian sheath into the right femoral artery without any complications or difficulties. I then placed a 6 Serbian MPC Envoy catheter connected to continuous heparinized [...] branch was targeted for this intervention. The [place] microcatheter was advanced into the largest of [...] close to the nidus as possible. The [place] microcatheter was then flushed with at least 0.23 mL of DMSO to clear the catheter of any ionic material, and Smithton 18 Liquid Embolic agent was then injected [...] site. I then placed a 6/7F Mynx Pot Annealer closure device in the right femoral arteriotomy [...] about 80-90% of the AVM embolized with Smith[place] 18 embolization of a large feeding pedicle [...] this plan.End of diagnostic report for accession: [id number] Interpreted: Lexa Padilla MDTranscribed: 09/09/2020 09:52 AMSigned: 09/11/2020 09:35 AM Lexa Padilla MD [facility] # [id number] BILL # [id number] Name Value Range Interpretation Code Description Data Carolann rce(s) Supporting Document(s) ID Date Data Source [id number] 09/09/2020 09:49:15 AM EDT Lab [facility] Name Value Range Interpretation Code Description Data Carolann rce(s) Supporting Document(s) URINE HCG (NEG) [facility] ID Date Data Source [id number] 09/04/2020 09:30:00 AM EDT [facility]) Name Value Range Interpretation Code Description Data Carolann rce(s) Supporting Document(s) Laboratory test finding (navigational concept) Laboratory test result [facility] ([facility]) This nucleic acid amplification test was developed and its performance characteristics determined by [facility]. Nucleic acid amplification tests include RT- PCR [...] finding (navigational concept) Laboratory test result [facility] ([place]) Performed at: [facility] [employer] [address] [id number] Hand Cementer: Christin Laurent PhD, Phone: [phone] Performed at: - [facility] [address] [id number] Hand Cementer: Leslie Musa MD, Phone: [phone] Performed ID Date Data Source [id number] 09/04/2020 09:30:00 AM EDT [facility] Name Value Range Interpretation Code Description Data Carolann rce(s) Supporting Document(s) SARS coronavirus 2 RNA Not Detected [facility] This lab was ordered by [facility] and reported by [facility]. ID Date Data Source URINE TEST 09/02/2020 12:00:00 AM EDT [email or web address] ([facility]) Name Value Range Interpretation Code Description Data Carolann rce(s) Supporting Document(s) NEGATIVE NEGATIVE URINE PREG TEST eCW1 ([facility]) ID Date Data Source UA URINALYSIS 09/02/2020 12:00:00 AM EDT eCW1 ([facility]) Name Value Range Interpretation Code Description Data Carolann rce(s) Supporting Document(s) UA URINALYSIS eCW1 ([facility]) ID Date Data Source PT-INR 09/02/2020 12:00:00 AM EDT eCW1 ([facility]) Name Value Range Interpretation Code Description Data Carolann rce(s) Supporting Document(s) Prothrombin time (PT) 12.2 12.5-14.3 PROTHROMBIN TI ME eCW1 ([facility]) INR in Platelet poor plasma by Coagulation assay 0.89 INR eCW1 ([facility]) ID Date Data Source Comprehensive Metabolic Profile (CMP) 09/02/2020 12:00:00 AM EDT eCW1 ([facility]) Name Value Range Interpretation Code Description Data Carolann rce(s) Supporting Document(s) 0.99 0.55-1.30 CREATININE FOR GFR eCW1 ([facility]) 89 70-100 GLUCOSE, FASTING eCW1 ([facility]) 15 7-18 BLOOD UREA NITROGEN eCW1 ([facility]) > 60.0 >60 GLOMERULAR FILTRATION RATE eCW 1 ([facility]) 106 98-107 CHLORIDE LEVEL eCW1 ([facility]) 4.1 3.5-5.1 POTASSIUM SERUM eCW1 ([facility]) 138 136-145 SODIUM LEVEL eCW1 ([facility]) 39 12-78 ALT/SGPT eCW1 ([facility]) 24 21-32 CARBON DIOXIDE LEVEL [facility] 9.2 8.5-10.1 CALCIUM LEVEL eCW1 ([facility]) 21 7-37 AST/SGOT eCW1 ([facility]) 7.6 6.4-8.2 TOTAL PROTEIN eCW1 ([facility]) 4.0 3.2-5.2 ALBUMIN eCW1 ([facility]) 0.2 0.2-1.0 BILIRUBIN,TOTAL eCW1 ([facility]) 71 45-117 ALKALINE PHOSPHATASE eCW1 [facility] 1.1 1.2-2.2 ALBUMIN/GLOBULIN RATIO eCW1 ([facility]) ID Date Data Source CBC with Differential 09/02/2020 12:00:00 AM EDT eCW1 ([facility]) Name Value Range Interpretation Code Description Data Carolann rce(s) Supporting Document(s) 13.7 12.0-15.5 HEMOGLOBIN eCW1 ([facility]) 4.64 4.00-5.40 RED BLOOD COUNT eCW1 ([facility]) 10.1 4.0-10.0 WHITE BLOOD COUNT eCW1 ([facility]) 42.0 36.0-47.0 HEMATOCRIT eCW1 ([facility]) 29.5 27.0-33.0 MEAN CORPUSCULAR HEMOGLOB IN eCW1 ([facility]) 90.5 80.0-96.0 MEAN CORPUSCULAR VOLUME e CW1 ([facility]) 32.6 32.0-36.5 MEAN CORPUSCULAR HGB CONC eCW1 ([facility]) 12.4 11.5-14.5 RED CELL DISTRIBUTION WID TH eCW1 ([facility]) 64.2 36.0-66.0 NEUTROPHILS % eCW1 ([facility]) 25.9 24.0-44.0 LYMPH % eCW1 ([facility]) 291 150-450 PLATELET COUNT, AUTOMATED eCW1 ([facility]) 6.5 1.5-8.5 NEUTROPHILS # eCW1 ([facility]) 6.8 2.0-8.0 MONO % eCW1 ([facility]) 0.8 0.0-1.0 BASO % eCW1 ([facility]) 1.8 0.0-3.0 EOS % eCW1 ([facility]) 0.1 0.0-0.2 BASO # eCW1 ([facility]) 0.2 0.0-0.5 EOS # eCW1 ([facility]) 0.7 0.0-0.8 MONO # eCW1 ([facility]) 2.6 1.5-5.0 LYMPH # eCW1 ([facility]) ID Date Data Source [id number] 08/15/2020 11:26:00 AM KIZZY Estrada al DATE OF EXAM: 08/15/2020ate of Procedur e: 08/15/2020reoperative Diagnosis: Evaluate for left cerebellar AVMPostoperative Diagnosis: Evaluate for left cerebellar AVM Procedure(s):1. Diagnostic cerebral angiogram: - (2D); Right femoral runoff (2D)2. Conscious sedation for 21 minutes3. Right femoral 5/6F Mynx Pot Annealer closure device placed for arteriotomy closure Surgeon: [...] by comparing the signed consent with the [facility] to confirm the proper medical record number, date of , and patient name and when this was confirmed the patient was placed on the [employer] biplane angio table in supine position. The [...] the modified Seldinger technique with a 5 Serbian micropuncture kit. I then placed a 5 Serbian sheath into the right femoral artery without any complications or difficulties. 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 I then selectively catheterized the left [...] site. I then placed a 5/6F Mynx Pot Annealer closure device in the right femoral arteriotomy [...] with normal anterograde filling to the left [employer]INE[employer] territory. 6. Selective left external carotid artery [...] this plan.End of diagnostic report for accession: [id number] Interpreted: Lexa Padilla MDTranscribed: 08/15/2020 10:34 AMSigned: 08/15/2020 11:26 AM Lexa Padilla MD [facility] # [id number] BILL # [id number] NIRR Name Value Range Interpretation Code Description Data Carolann rce(s) Supporting Document(s) ID Date Data Source [id number] 08/15/2020 09:28:48 AM EST [facility] Name Value Range Interpretation Code Description Data Carolann rce(s) Supporting Document(s) POC GLUCOSE 96 mg/dL (70-99) [facility] PERFORMED BY CLINICAL STAFF ID Date Data Source [id number] 08/10/2020 10:00:00 AM EST MEDENT ([facility]) Name Value Range Interpretation Code Description Data Carolann rce(s) Supporting Document(s) Laboratory test finding (navigational concept) Laboratory test result MEDENT ([facility]) This nucleic acid amplification test was developed and its performance characteristics determined by [facility]. Nucleic acid amplification tests include RT- PCR [...] detected) result in this assay. Performed at: [address] [id number] Hand Cementer: Leslie Musa MD, Phone: [phone] Not Detected ID Date Data Source [id number] 08/10/2020 10:00:00 AM EST [facility] Name Value Range Interpretation Code Description Data Carolann rce(s) Supporting Document(s) SARS coronavirus 2 RNA Not Detected [facility] This lab was ordered by [facility] and reported by [facility]. ID Date Data Source [id number] 08/07/2020 02:59:00 PM EST MEDENT ([facility]) Name Value Range Interpretation Code Description Data Carolann rce(s) Supporting Document(s) Venipuncture Laboratory test result MEDE NT ([facility]) aPTT in Platelet poor plasma by Coagulation assay 29.1 Sec 24.7-34. 7 MEDENT ([facility]) Note normal range update due to new reag ent lot 01/25/2020 ID Date Data Source [id number] 08/07/2020 02:59:00 PM EST MEDENT ([facility]) Name Value Range Interpretation Code Description Data Carolann rce(s) Supporting Document(s) Prothrombin time (PT) 12.0 Sec 10.9-14.5 [facility] ( [facility]) INR in Platelet poor plasma by Coagulation assay 0.9 [facility] ([facility]) [facility] and transmitted [address] * INR Interpretation : . Recommended Theraputic Range: 2.0 - 3.0 . For treatment/prophylaxis . of venous thrombosis, . prevention of embolism. . . ID Date Data Source [id number] 08/07/2020 02:59:00 PM EST [facility] ([facility]) Name Value Range Interpretation Code Description Data [facility] rce(s) Supporting Document(s) Choriogonadotropin.beta subunit [Moles/volume] in Seru m or Plasma Laboratory test result [facility] ([facility]) HCG Interpretation: Less Than [...] - Clinically significant. ID Date Data Source [id number] 08/07/2020 02:59:00 PM EST [facility] ([facility]) Name Value Range Interpretation Code Description Data [facility] rce(s) Supporting Document(s) WBC. 12.60 x10E3/uL 4.2-12.0 Above high normal MED E[facility] ([facility]) Hematocrit [Volume Fraction] of Blood by Automated count 42.9 % 3 6-47 [facility] ([facility]) Hemoglobin [Mass/volume] in Blood 14.0 g/dL 12.0-16.0 [facility] ([facility]) Erythrocytes [#/volume] in Blood by Automated count 4.70 x10E6/uL 3.9 -5.4 [facility] ([facility]) MCH 29.9 pg 27-33 [facility] ([facility]) MCV 91.3 fL 80-98 [facility]) RDW 12.9 % 11.2-15.2 [facility] ([facility]) MCHC 32.7 g/dL 32-36 [facility]) Platelets [#/volume] in Blood by Automated count 280 x10E3/uL 135-420 [facility] ([facility]) % [place] 72.1 % 41.0-80.0 [facility] ([facility]) MPV 7.2 fL 7.0-12.3 [facility] ([facility]) Eosinophils [#/volume] in Blood by Automated count 1.2 % 0.0-8.0 [facility] ([facility]) %Lym 22.2 % 10.0-45.2 [facility]) %[place] 4.1 % 2.0-13.0 [facility]) %Baso 0.5 % 0.0-3.0 [facility]) Neut 9.1 x10E3/uL 2.0-8.1 Above high normal [facility] ([facility]) [place] 0.5 x10E3/uL 0.0-1.0 [facility]) Lymp 2.8 x10E3/uL 0.6-3.1 [facility]) Baso 0.1 x10E3/uL 0.0-0.2 [facility] ([facility]) Eos 0.2 x10E3/uL 0.0-0.6 [facility] ([facility]) ID Date Data Source [id number] 08/07/2020 02:59:00 PM EST [facility] ([facility]) Name Value Range Interpretation Code Description Data Carolann rce(s) Supporting Document(s) Urea nitrogen [Moles/volume] in Serum or Plasma 13 mg/dL 6-20 [facility] ([facility]) Glucose [Mass/volume] in Serum or Plasma 91 mg/dL 74-106 [facility] ([facility]) [employer] (ADA) Recommended Range is 65-99 mg/dL Sodium [Moles/volume] in Serum or Plasma 137 mmol/L 136-145 [facility] ([facility]) Creatinine [Mass/volume] in Serum or Plasma 1.0 mg/dL 0.5-1.3 [facility] ([facility]) Chloride [Moles/volume] in Serum or Plasma 104 mmol/L 98-107 [facility] ([facility]) Carbon dioxide, total [Moles/volume] in Serum or Plasma 26 meq/L 20 -31 [facility] ([place]) Potassium [Moles/volume] in Serum or Plasma 4.1 mmol/L 3.5-5.3 [facility] ([place]) eGFR-female 63 mL/m/1.73m [facility] ([place]) Anion Gap 7 mmol/L 7-16 [facility] ([facility]) eGFR-Aa female 76 mL/m/1.73m [facility] ([facility]) <content>Normal Kidney Function or Mild Disease GFR >59 mL/min/1.73m2</content>
<content>Chronic Kidney Disease GFR 15-59 mL/min/1.73m2</content>
<content>Renal Failure GFR <15 mL/min/1.73m2</content>
<content></content> Calcium [Mass/volume] in Serum or Plasma 8.9 mg/dL 8.9-10.5 [facility] ([place]) ID Date Data Source [id number] 05/22/2020 12:00:00 AM EST [facility] Name Value Range Interpretation Code Description Data Carolann rce(s) Supporting Document(s) 2019-nCoV RNA XXX REYNALDO+probe-Imp [facility] This lab was ordered by [facility] and reported by [facility] Procedure Social History Code Duration Value Status Description Data Source(s ) Smoking 04/02/2021 12:00:00 AM EDT Current Smoker completed Curre nt Smoker eCW1 ([facility]) Smoking 04/02/2021 12:00:00 AM EDT Current Smoker completed Curre nt Smoker eCW1 ([facility]) Smoking 03/12/2021 12:00:00 AM EDT Patient is a former smoker completed Patient is a former smoker [facility] ([facility]) Smoking 02/26/2021 12:00:00 AM EDT Current Smoker completed Curre nt Smoker eCW1 ([facility]) Smoking 02/26/2021 12:00:00 AM EDT Current Smoker completed Curre nt Smoker eCW1 ([facility]) Smoking 02/26/2021 12:00:00 AM EDT Current Smoker completed Curre nt Smoker eCW1 ([facility]) Smoking 02/26/2021 12:00:00 AM EDT Current Smoker completed Curre nt Smoker eCW1 ([facility]) Smoking 02/26/2021 12:00:00 AM EDT Current Smoker completed Curre nt Smoker eCW1 ([facility]) Smoking 02/26/2021 12:00:00 AM EDT Current Smoker completed Curre nt Smoker eCW1 ([facility]) Smoking 02/26/2021 12:00:00 AM EDT Current Smoker completed Curre nt Smoker eCW1 ([facility]) Smoking 02/26/2021 12:00:00 AM EDT Current Smoker completed Curre nt Smoker eCW1 ([facility]) Smoking 02/26/2021 12:00:00 AM EDT Current Smoker completed Curre nt Smoker eCW1 ([facility]) Smoking 12/31/2020 12:00:00 AM EDT Patient is a former smoker completed Patient is a former smoker [facility] ([facility]) Smoking 12/26/2020 12:00:00 AM EDT Current Smoker completed Curre nt Smoker eCW1 ([facility]) Smoking 12/26/2020 12:00:00 AM EDT Current Smoker completed Curre nt Smoker eCW1 ([facility]) Smoking 12/26/2020 12:00:00 AM EDT Current Smoker completed Curre nt Smoker eCW1 ([facility]) Smoking 12/26/2020 12:00:00 AM EDT Current Smoker completed Curre nt Smoker eCW1 ([facility]) Smoking 12/26/2020 12:00:00 AM EDT Current Smoker completed Curre nt Smoker eCW1 ([facility]) Smoking 12/26/2020 12:00:00 AM EDT Current Smoker completed Curre nt Smoker eCW1 ([facility]) Smoking 12/26/2020 12:00:00 AM EDT Current Smoker completed Curre nt Smoker eCW1 ([facility]) Smoking 12/26/2020 12:00:00 AM EDT Current Smoker completed Curre nt Smoker eCW1 ([facility]) Smoking 12/26/2020 12:00:00 AM EDT Current Smoker completed Curre nt Smoker eCW1 ([facility]) Smoking 12/26/2020 12:00:00 AM EDT Current Smoker completed Curre nt Smoker eCW1 ([facility]) Smoking 12/02/2020 12:00:00 AM EDT Current Smoker completed Curre nt Smoker eCW1 ([facility]) Smoking 12/02/2020 12:00:00 AM EDT Current Smoker completed Curre nt Smoker eCW1 ([facility]) Smoking 12/02/2020 12:00:00 AM EDT Current Smoker completed Curre nt Smoker eCW1 ([facility]) Smoking 12/02/2020 12:00:00 AM EDT Current Smoker completed Curre nt Smoker eCW1 ([facility]) Smoking 12/02/2020 12:00:00 AM EDT Current Smoker completed Curre nt Smoker eCW1 ([facility]) Smoking 12/02/2020 12:00:00 AM EDT Current Smoker completed Curre nt Smoker eCW1 ([facility]) Smoking 12/02/2020 12:00:00 AM EDT Current Smoker completed Curre nt Smoker eCW1 ([facility]) Smoking 11/16/2020 05:16:00 AM EDT Former Smoker completed Former Smoker [facility] Smoking 11/01/2020 12:00:00 AM EDT Current Smoker completed Curre nt Smoker eCW1 ([facility]) Smoking 11/01/2020 12:00:00 AM EDT Current Smoker completed Curre nt Smoker eCW1 ([facility]) Smoking 11/01/2020 12:00:00 AM EDT Current Smoker completed Curre nt Smoker eCW1 ([facility]) Smoking 11/01/2020 12:00:00 AM EDT Current Smoker completed Curre nt Smoker eCW1 ([facility]) Smoking 11/01/2020 12:00:00 AM EDT Current Smoker completed Curre nt Smoker eCW1 ([facility]) Smoking 11/01/2020 12:00:00 AM EDT Current Smoker completed Curre nt Smoker eCW1 ([facility]) Smoking 11/01/2020 12:00:00 AM EDT Current Smoker completed Curre nt Smoker eCW1 ([facility]) Smoking 11/01/2020 12:00:00 AM EDT Current Smoker completed Curre nt Smoker eCW1 ([facility]) Smoking 11/01/2020 12:00:00 AM EDT Current Smoker completed Curre nt Smoker eCW1 ([facility]) Smoking 10/31/2020 12:00:00 AM EDT Current Smoker completed Curre nt Smoker eCW1 ([facility]) Smoking 10/25/2020 01:59:00 PM EDT Daily Smoker completed Daily S [facility] Smoking 09/09/2020 11:42:00 AM EDT Daily Smoker completed Daily S moker [facility] Smoking 09/02/2020 12:00:00 AM EDT Current Smoker completed Curre nt Smoker eCW1 ([facility]) Smoking 09/02/2020 12:00:00 AM EDT Current Smoker completed Curre nt Smoker eCW1 ([facility]) Smoking 09/02/2020 12:00:00 AM EDT Current Smoker completed Curre nt Smoker eCW1 ([facility]) Smoking 09/02/2020 12:00:00 AM EDT Current Smoker completed Curre nt Smoker eCW1 ([facility]) Smoking 09/02/2020 12:00:00 AM EDT Current Smoker completed Curre nt Smoker eCW1 ([facility]) Smoking 09/02/2020 12:00:00 AM EDT Current Smoker completed Curre nt Smoker eCW1 ([facility]) Smoking 09/02/2020 12:00:00 AM EDT Current Smoker completed Curre nt Smoker eCW1 ([facility]) Smoking 09/02/2020 12:00:00 AM EDT Current Smoker completed Curre nt Smoker eCW1 ([facility]) 08/07/2020 12:00:00 AM EST Patient is a current smoker, smokes every day completed Patient is a current smoker, smokes every day MEDENT ( [place]) Vital Signs ID Date Data Source UNK Name Value Range Interpretation Code Description Data Source(s) Body weight 267 [lb_av] 267 [lb_av] eCW1 ([facility]) Body weight 121.11 kg 121.11 kg eCW1 ([facility]) Body height [in_i] eCW1 ([facility]) Body mass index (BMI) [Ratio] 45.83 kg/m2 45.83 kg/m2 eCW1 ([facility]) Heart rate 102 /min 102 /min eCW1 ([facility]) Respiratory rate 18 /min 18 /min eCW1 ([facility]) Body temperature 98.6 [degF] 98.6 [degF] eCW1 ( [facility]) Systolic blood pressure 137 mm[Hg] 137 mm[Hg] e CW1 ([facility]) Diastolic blood pressure 72 mm[Hg] 72 mm[Hg] eCW1 ([facility]) [place] body weight 120 [lb_av] 120 [lb_av] MEDEN T ([facility] ) Body weight 120.658 kg 120.658 kg MEDENT ([facility], ) Body surface area Derived from formula 2.21 m2 2.21 m2 [facility] ([facility] ) Systolic blood pressure 128 mm[Hg] 128 mm[Hg] M EDENT ([facility], ) Diastolic blood pressure 80 mm[Hg] 80 mm[Hg] MEDENT ([facility], ) Heart rate 119 /min 119 /min [facility] ([facility], ) Oxygen saturation in Arterial blood by Pulse oximetry 97 % 97 % [facility] ([facility], ) Body height 64 [in_i] 64 [[facility]_i] [facility] 5'4" Body weight 266.00 [lb_av] 266.00 [lb_av] MEDEN T ([facility], ) Body mass index (BMI) [Ratio] 45.7 kg/m2 45.7 k g/m2 [facility] ([facility]) Diastolic blood pressure 76 mm[Hg] 76 mm[Hg] [facility] ([facility]) Body mass index (BMI) [Ratio] 45.7 kg/m2 45.7 k g/m2 [facility] ([facility]) Body height 64 [in_i] 64 [in_i] [facility] ([facility]) 5'4" Systolic blood pressure 122 mm[Hg] 122 mm[Hg] M EDENT ([facility]) Heart rate 93 /min 93 /min [facility] ([facility]) Oxygen saturation in Arterial blood by Pulse oximetry 96 % 96 % [facility] ([facility]) Body weight 266.00 [lb_av] 266.00 [lb_av] MEDEN T ([facility]) [place] body weight 120 [lb_av] 120 [lb_av] MEDEN T ([facility]) Body weight 120.658 kg 120.658 kg [facility] ([facility]) Body surface area Derived from formula 2.21 m2 2.21 m2 [facility] ([facility]) [place] body weight 120 [lb_av] 120 [lb_av] MEDEN T ([facility]) Respiratory rate 12 /min 12 /min [facility] ( [facility]) Body height 64 [in_i] 64 [in_i] [facility] ([facility]) 5'4" Body weight 210.00 [lb_av] 210.00 [lb_av] MEDEN T ([facility]) Body mass index (BMI) [Ratio] 36.0 kg/m2 36.0 k g/m2 [facility] ([facility]) Body weight 264 [lb_av] 264 [lb_av] eCW1 ([facility]) Diastolic blood pressure 79 mm[Hg] 79 mm[Hg] eCW1 ([facility]) Body weight 119.75 kg 119.75 kg eCW1 ([facility]) Body height [in_i] eCW1 ([facility]) Body mass index (BMI) [Ratio] 45.31 kg/m2 45.31 kg/m2 eCW1 ([facility]) Heart rate 100 /min 100 /min eCW1 ([facility]) Respiratory rate 18 /min 18 /min eCW1 ([facility]) Body temperature 98.3 [degF] 98.3 [degF] eCW1 ( [facility]) Systolic blood pressure 104 mm[Hg] 104 mm[Hg] e CW1 ([facility]) Body weight 264.6 [lb_av] 264.6 [lb_av] eCW1 ([facility]) Systolic blood pressure 132 mm[Hg] 132 mm[Hg] e CW1 ([facility]) Diastolic blood pressure 86 mm[Hg] 86 mm[Hg] eCW1 ([facility]) Body temperature 98.0 [degF] 98.0 [degF] eCW1 ( [facility]) Body weight 120.02 kg 120.02 kg eCW1 ([facility]) Body height [in_i] eCW1 ([facility]) Body mass index (BMI) [Ratio] 45.41 kg/m2 45.41 kg/m2 eCW1 ([facility]) Heart rate 117 /min 117 /min eCW1 ([facility]) Respiratory rate 18 /min 18 /min eCW1 ([facility]) Body weight 249.4 [lb_av] 249.4 [lb_av] eCW1 ([facility]) Body height [in_i] eCW1 ([facility]) Body mass index (BMI) [Ratio] 42.80 kg/m2 42.80 kg/m2 eCW1 ([facility]) Heart rate 104 /min 104 /min eCW1 ([facility]) Respiratory rate 18 /min 18 /min eCW1 ([facility]) Body temperature 97.2 [degF] 97.2 [degF] eCW1 ( [facility]) Systolic blood pressure 118 mm[Hg] 118 mm[Hg] e CW1 ([facility]) Diastolic blood pressure 76 mm[Hg] 76 mm[Hg] eCW1 ([facility]) Body weight 247.6 [lb_av] 247.6 [lb_av] eCW1 ([facility]) Body height [in_i] eCW1 ([facility]) Body mass index (BMI) [Ratio] 42.50 kg/m2 42.50 kg/m2 eCW1 ([facility]) Heart rate 110 /min 110 /min eCW1 ([facility]) Respiratory rate 18 /min 18 /min eCW1 ([facility]) Body temperature 97.5 [degF] 97.5 [degF] eCW1 ( [facility]) Systolic blood pressure 126 mm[Hg] 126 mm[Hg] e CW1 ([facility]) Diastolic blood pressure 74 mm[Hg] 74 mm[Hg] eCW1 ([facility]) Heart rate 109 /min 109 /min [facility] ([facility]) Body temperature 98.6 [degF] 98.6 [degF] [facility] ([facility]) Systolic blood pressure 130 mm[Hg] 130 mm[Hg] M EDENT ([facility]) Diastolic blood pressure 86 mm[Hg] 86 mm[Hg] MEDENT ([facility]) Body height 64.75 [in_i] 64.75 [in_i] MEDENT ([facility]) 5'4.75" Body weight 245.00 [lb_av] 245.00 [lb_av] MEDEN T ([facility]) Body mass index (BMI) [Ratio] 41.1 kg/m2 41.1 k g/m2 MEDENT ([facility]) Body temperature 37.0 Sowmya 37.0 Sowmya MEDENT ( [facility]) Respiratory rate 12 /min 12 /min MEDENT ( [facility] ) Body mass index (BMI) [Ratio] 36.0 kg/m2 36.0 k g/m2 MEDENT ([facility], ) [place] body weight 120 [lb_av] 120 [lb_av] MEDEN T ([facility], ) Body height 64 [in_i] 64 [in_i] TAYLER ([facility], ) 5'4" Body weight 210.00 [lb_av] 210.00 [lb_av] MELO Guzmán ([facility], ) Systolic blood pressure 125 mm[Hg] Normal (applies t o non-numeric results) 125 mm[Hg] [facility] Diastolic blood pressure 86 mm[Hg] Normal (applies to non-numeric results) 86 mm[Hg] [facility] Heart rate 88 min Normal (applies to non-numeric resul ts) [address] [facility] Deprecated Oxygen saturation in Capillary blood by Oximetry 95 % Normal (applies to non-numeric results) 95 % [facility] Respiratory rate 20 min Normal (applies to non-numeric results) [address] [facility] Body temperature 36.9 sowmya Normal (applies to non-numeric results) 36.[address] [facility] Body height 167.39754097617212 cm Normal (applies to non-numeric results) 167.54240097595067 cm [facility] Body weight Measured 108.6 kg Normal (applies to n on-numeric results) 108.[address] [facility] Body weight 223.4 [lb_av] 223.4 [lb_av] eCW1 ([facility]) Body height [in_i] eCW1 ([facility]) Body mass index (BMI) [Ratio] 38.34 kg/m2 38.34 kg/m2 W1 ([facility]) Heart rate 97 /min 97 /min W1 ([facility]) Respiratory rate 18 /min 18 /min W1 ([facility]) Body temperature 99.5 [degF] 99.5 [degF] eCW1 ( [facility]) Systolic blood pressure 116 mm[Hg] 116 mm[Hg] e CW1 ([facility]) Diastolic blood pressure 86 mm[Hg] 86 mm[Hg] eCW1 ([facility]) Deprecated Oxygen saturation in Capillary blood by Oximetry 96 % Normal (applies to non-numeric results) 96 % [facility] Body weight Measured 105.1 kg Normal (applies to n on-numeric results) 105.[address] [facility] Systolic blood pressure 110 mm[Hg] Normal (applies t o non-numeric results) 110 mm[Hg] [facility] Diastolic blood pressure 72 mm[Hg] Normal (applies to non-numeric results) 72 mm[Hg] [facility] Heart rate 102 min Normal (applies to non-numeric resul ts) [address] [facility] Respiratory rate 16 min Normal (applies to non-numeric results) [address] [facility] Body temperature 37.4 sowmya Normal (applies to non-numeric results) 37.[address] [facility] Body mass index (BMI) [Ratio] 33.16 kg/m2 No rmal (applies to non-numeric results) 33.16 kg/m2 [facility] Body height [id number] cm Normal (applies to non-numeric results) 167.92930026150071 cm [facility] Heart rate 67 min Normal (applies to non-numeric resul ts) [address] [facility] Respiratory rate 16 min Normal (applies to non-numeric results) [address] [facility] Body temperature 36.7 sowmya Normal (applies to non-numeric results) 36.[address] [facility] Deprecated Oxygen saturation in Capillary blood by Oximetry 98 % Normal (applies to non-numeric results) 98 % [facility] Body mass index (BMI) [Ratio] 35.23 kg/m2 No rmal (applies to non-numeric results) 35.23 kg/m2 [facility] Body height 167.15331163941828 cm Normal (applies to non-numeric results) 167.26125308694717 cm [facility] Body weight Measured 99 kg Normal (applies to non-num eri results) [address] [facility] Systolic blood pressure 122 mm[Hg] 122 mm[Hg] e CW1 ([facility]) Body weight 218 [lb_av] 218 [lb_av] eCW1 ([facility]) Body height [in_i] eCW1 ([facility]) Body mass index (BMI) [Ratio] 37.42 kg/m2 37.42 kg/m2 eCW1 ([facility]) Heart rate 80 /min 80 /min eCW1 ([facility]) Respiratory rate 18 /min 18 /min eCW1 ([facility]) Body temperature 98.5 [degF] 98.5 [degF] eCW1 ( [facility]) Diastolic blood pressure 84 mm[Hg] 84 mm[Hg] eCW1 ([facility]) Body weight 210.00 [lb_av] 210.00 [lb_av] MEDEN T ([facility], ) Respiratory rate 12 /min 12 /min MEDENT ( [facility]) [place] body weight 120 [lb_av] 120 [lb_av] MEDEN T ([facility]) Body mass index (BMI) [Ratio] 36.0 kg/m2 36.0 k g/m2 MEDENT ([facility]) Body height 64 [in_i] 64 [in_i] MEDENT ([facility]) 5'4" Body height 64.75 [in_i] 64.75 [in_i] MEDENT ([facility]) 5'4.75" Systolic blood pressure 126 mm[Hg] 126 mm[Hg] M EDENT ([facility]) Heart rate 99 /min 99 /min MEDENT ([facility]) Body temperature 98.0 [degF] 98.0 [degF] MEDENT ([facility]) Body temperature 36.7 Sowmya 36.7 Sowmya MEDENT ( [facility]) Body weight 215.00 [lb_av] 215.00 [lb_av] MEDEN T ([facility]) Body mass index (BMI) [Ratio] 36.1 kg/m2 36.1 k g/m2 MEDENT ([facility]) Diastolic blood pressure 92 mm[Hg] 92 mm[Hg] MEDENT ([facility]) [place] body weight 120 [lb_av] 120 [lb_av] MEDEN T ([facility], ) Respiratory rate 12 /min 12 /min MEDENT ( [facility]) Body height 64 [in_i] 64 [in_i] MEDENT ([facility], ) 5'4" Body weight 210.00 [lb_av] 210.00 [lb_av] MEDEN T ([facility]) Body mass index (BMI) [Ratio] 36.0 kg/m2 36.0 k g/m2 MEDENT ([facility], ) Patient Treatment Plan of Care Planned Activity Planned Date Details Description Data Source (s) gabapentin 400 MG Oral Capsule 04/02/2021 12:00:00 AM EDT eCW1 ([facility]) gabapentin 400 MG Oral Capsule 04/02/2021 12:00:00 AM EDT eCW1 ([facility]) Amphetamine aspartate 5 MG / Amphetamine Sulfate 5 MG / Dextroamphetamine saccharate 5 MG / Dextroamphetamine Sulfate 5 MG Oral Tablet [Adderall] 03/17/2021 12:00:00 AM EDT eCW1 ([facility]) Amphetamine aspartate 5 MG / Amphetamine Sulfate 5 MG / Dextroamphetamine saccharate 5 MG / Dextroamphetamine Sulfate 5 MG Oral Tablet [Adderall] 03/17/2021 12:00:00 AM EDT eCW1 ([facility]) tramadol hydrochloride 50 MG Oral Tablet 03/05/2021 12:00:00 AM EDT eCW1 ([facility]) tramadol hydrochloride 50 MG Oral Tablet 03/05/2021 12:00:00 AM EDT eCW1 ([facility]) tramadol hydrochloride 50 MG Oral Tablet 03/05/2021 12:00:00 AM EDT eCW1 ([facility]) tramadol hydrochloride 50 MG Oral Tablet 03/05/2021 12:00:00 AM EDT eCW1 ([facility]) tramadol hydrochloride 50 MG Oral Tablet 03/05/2021 12:00:00 AM EDT eCW1 ([facility]) tramadol hydrochloride 50 MG Oral Tablet 03/05/2021 12:00:00 AM EDT eCW1 ([facility]) tramadol hydrochloride 50 MG Oral Tablet 03/05/2021 12:00:00 AM EDT eCW1 ([facility]) 168 HR Buprenorphine 0.005 MG/HR Transdermal Patch [Bu Trans] 03/03/2021 12:00:00 AM EDT eCW1 ([facility]) 168 HR Buprenorphine 0.005 MG/HR Transdermal Patch [Bu Trans] 03/03/2021 12:00:00 AM EDT eCW1 ([facility]) 168 HR Buprenorphine 0.005 MG/HR Transdermal Patch [Bu Trans] 03/03/2021 12:00:00 AM EDT eCW1 ([facility]) 168 HR Buprenorphine 0.005 MG/HR Transdermal Patch [Bu Trans] 03/03/2021 12:00:00 AM EDT eCW1 ([facility]) 168 HR Buprenorphine 0.005 MG/HR Transdermal Patch [Bu Trans] 03/03/2021 12:00:00 AM EDT eCW1 ([facility]) 168 HR Buprenorphine 0.005 MG/HR Transdermal Patch [Bu Trans] 03/03/2021 12:00:00 AM EDT eCW1 ([facility]) 168 HR Buprenorphine 0.005 MG/HR Transdermal Patch [Bu Trans] 03/03/2021 12:00:00 AM EDT eCW1 ([facility]) 168 HR Buprenorphine 0.005 MG/HR Transdermal Patch [Bu Trans] 03/03/2021 12:00:00 AM EDT eCW1 ([facility]) Triamcinolone Acetonide 0.25 MG/ML Topical Cream 02/26/2021 12:00:0 0 AM EDT eCW1 ([facility]) [place] 75 MCG 02/26/2021 12:00:00 AM EDT eCW1 ([facility]) Triamcinolone Acetonide 0.25 MG/ML Topical Cream 02/26/2021 12:00:0 0 AM EDT eCW1 ([facility]) [place] 75 MCG 02/26/2021 12:00:00 AM EDT eCW1 ([facility]) [place] 75 MCG 02/26/2021 12:00:00 AM EDT eCW1 ([facility]) Triamcinolone Acetonide 0.25 MG/ML Topical Cream 02/26/2021 12:00:0 0 AM EDT eCW1 ([facility]) [place] 75 MCG 02/26/2021 12:00:00 AM EDT eCW1 ([facility]) Triamcinolone Acetonide 0.25 MG/ML Topical Cream 02/26/2021 12:00:0 0 AM EDT eCW1 ([facility]) [place] 75 MCG 02/26/2021 12:00:00 AM EDT eCW1 ([facility]) Triamcinolone Acetonide 0.25 MG/ML Topical Cream 02/26/2021 12:00:0 0 AM EDT eCW1 ([facility]) [place] 75 MCG 02/26/2021 12:00:00 AM EDT eCW1 ([facility]) Triamcinolone Acetonide 0.25 MG/ML Topical Cream 02/26/2021 12:00:0 0 AM EDT eCW1 ([facility]) [place] 75 MCG 02/26/2021 12:00:00 AM EDT eCW1 ([facility]) Triamcinolone Acetonide 0.25 MG/ML Topical Cream 02/26/2021 12:00:0 0 AM EDT eCW1 ([facility]) [place] 75 MCG 02/26/2021 12:00:00 AM EDT eCW1 ([facility]) Triamcinolone Acetonide 0.25 MG/ML Topical Cream 02/26/2021 12:00:0 0 AM EDT eCW1 ([facility]) [place] 75 MCG 02/26/2021 12:00:00 AM EDT eCW1 ([facility]) Triamcinolone Acetonide 0.25 MG/ML Topical Cream 02/26/2021 12:00:0 0 AM EDT eCW1 ([facility]) Amphetamine aspartate 5 MG / Amphetamine Sulfate 5 MG / Dextroamphetamine saccharate 5 MG / Dextroamphetamine Sulfate 5 MG Oral Tablet [Adderall] 02/14/2021 12:00:00 AM EDT eCW1 ([facility]) Amphetamine aspartate 5 MG / Amphetamine Sulfate 5 MG / Dextroamphetamine saccharate 5 MG / Dextroamphetamine Sulfate 5 MG Oral Tablet [Adderall] 02/14/2021 12:00:00 AM EDT eCW1 ([facility]) Amphetamine aspartate 5 MG / Amphetamine Sulfate 5 MG / Dextroamphetamine saccharate 5 MG / Dextroamphetamine Sulfate 5 MG Oral Tablet [Adderall] 02/14/2021 12:00:00 AM EDT eCW1 ([facility]) Amphetamine aspartate 5 MG / Amphetamine Sulfate 5 MG / Dextroamphetamine saccharate 5 MG / Dextroamphetamine Sulfate 5 MG Oral Tablet [Adderall] 01/17/2021 12:00:00 AM EDT eCW1 ([facility]) Amphetamine aspartate 5 MG / Amphetamine Sulfate 5 MG / Dextroamphetamine saccharate 5 MG / Dextroamphetamine Sulfate 5 MG Oral Tablet [Adderall] 01/17/2021 12:00:00 AM EDT eCW1 ([facility]) Cyclobenzaprine hydrochloride 5 MG Oral Tablet 12/26/2020 12:00:00 AM EDT eCW1 ([facility]) pregabalin 50 MG Oral Capsule [Lyrica] 12/26/2020 12:00:00 AM EDT eCW1 ([facility]) Cyclobenzaprine hydrochloride 5 MG Oral Tablet 12/26/2020 12:00:00 AM EDT eCW1 ([facility]) pregabalin 50 MG Oral Capsule [Lyrica] 12/26/2020 12:00:00 AM EDT eCW1 ([facility]) pregabalin 50 MG Oral Capsule [Lyrica] 12/26/2020 12:00:00 AM EDT eCW1 ([facility]) Cyclobenzaprine hydrochloride 5 MG Oral Tablet 12/26/2020 12:00:00 AM EDT eCW1 ([facility]) pregabalin 50 MG Oral Capsule [Lyrica] 12/26/2020 12:00:00 AM EDT eCW1 ([facility]) Cyclobenzaprine hydrochloride 5 MG Oral Tablet 12/26/2020 12:00:00 AM EDT eCW1 ([facility]) pregabalin 50 MG Oral Capsule [Lyrica] 12/26/2020 12:00:00 AM EDT eCW1 ([facility]) Cyclobenzaprine hydrochloride 5 MG Oral Tablet 12/26/2020 12:00:00 AM EDT eCW1 ([facility]) pregabalin 50 MG Oral Capsule [Lyrica] 12/26/2020 12:00:00 AM EDT eCW1 ([facility]) Cyclobenzaprine hydrochloride 5 MG Oral Tablet 12/26/2020 12:00:00 AM EDT eCW1 ([facility]) pregabalin 50 MG Oral Capsule [Lyrica] 12/26/2020 12:00:00 AM EDT eCW1 ([facility]) Cyclobenzaprine hydrochloride 5 MG Oral Tablet 12/26/2020 12:00:00 AM EDT eCW1 ([facility]) pregabalin 50 MG Oral Capsule [Lyrica] 12/26/2020 12:00:00 AM EDT eCW1 ([facility]) Cyclobenzaprine hydrochloride 5 MG Oral Tablet 12/26/2020 12:00:00 AM EDT eCW1 ([facility]) pregabalin 50 MG Oral Capsule [Lyrica] 12/26/2020 12:00:00 AM EDT eCW1 ([facility]) Cyclobenzaprine hydrochloride 5 MG Oral Tablet 12/26/2020 12:00:00 AM EDT eCW1 ([facility]) Cyclobenzaprine hydrochloride 5 MG Oral Tablet 12/26/2020 12:00:00 AM EDT eCW1 ([facility]) pregabalin 50 MG Oral Capsule [Lyrica] 12/26/2020 12:00:00 AM EDT eCW1 ([facility]) Amphetamine aspartate 5 MG / Amphetamine Sulfate 5 MG / Dextroamphetamine saccharate 5 MG / Dextroamphetamine Sulfate 5 MG Oral Tablet [Adderall] 12/19/2020 12:00:00 AM EDT eCW1 ([facility]) Amphetamine aspartate 5 MG / Amphetamine Sulfate 5 MG / Dextroamphetamine saccharate 5 MG / Dextroamphetamine Sulfate 5 MG Oral Tablet [Adderall] 12/19/2020 12:00:00 AM EDT eCW1 ([facility]) Amphetamine aspartate 5 MG / Amphetamine Sulfate 5 MG / Dextroamphetamine saccharate 5 MG / Dextroamphetamine Sulfate 5 MG Oral Tablet [Adderall] 12/19/2020 12:00:00 AM EDT eCW1 ([facility]) AirDuo RespiClick 113/14 113-14 MCG/ACT 12/06/2020 12:00:00 AM EDT eCW1 ([facility]) [employer] RespiClick 113/14 113-14 MCG/ACT 12/06/2020 12:00:00 AM EDT eCW1 ([facility]) [employer] Respi[employer] 113/14 113-14 MCG/ACT 12/06/2020 12:00:00 AM EDT eCW1 ([facility]) [employer] Respi[employer] 113/14 113-14 MCG/ACT 12/06/2020 12:00:00 AM EDT eCW1 ([facility]) [employer] Respi[employer] 113/14 113-14 MCG/ACT 12/06/2020 12:00:00 AM EDT eCW1 ([facility]) duloxetine 60 MG Delayed Release Oral Capsule [Cymbalt a] 12/02/2020 12:00:00 AM EDT eCW1 ([facility]) duloxetine 60 MG Delayed Release Oral Capsule [Cymbalt a] 12/02/2020 12:00:00 AM EDT eCW1 ([facility]) duloxetine 60 MG Delayed Release Oral Capsule [Cymbalt a] 12/02/2020 12:00:00 AM EDT eCW1 ([facility]) duloxetine 60 MG Delayed Release Oral Capsule [Cymbalt a] 12/02/2020 12:00:00 AM EDT eCW1 ([facility]) duloxetine 60 MG Delayed Release Oral Capsule [Cymbalt a] 12/02/2020 12:00:00 AM EDT eCW1 ([facility]) duloxetine 60 MG Delayed Release Oral Capsule [Cymbalt a] 12/02/2020 12:00:00 AM EDT eCW1 ([facility]) duloxetine 60 MG Delayed Release Oral Capsule [Cymbalt a] 12/02/2020 12:00:00 AM EDT eCW1 ([facility]) duloxetine 60 MG Delayed Release Oral Capsule [Cymbalt a] 12/02/2020 12:00:00 AM EDT eCW1 ([facility]) duloxetine 60 MG Delayed Release Oral Capsule [Cymbalt a] 12/02/2020 12:00:00 AM EDT eCW1 ([facility]) duloxetine 60 MG Delayed Release Oral Capsule [Cymbalt a] 12/02/2020 12:00:00 AM EDT eCW1 ([facility]) 60 ACTUAT Fluticasone propionate 0.25 MG /ACTUAT / salmeterol 0.05 MG/ACTUAT Dry Powder Inhaler [Advair] 12/02/2020 12:00:00 AM EDT eCW1 ([facility]) duloxetine 60 MG Delayed Release Oral Capsule [Cymbalt a] 12/02/2020 12:00:00 AM EDT eCW1 ([facility]) 60 ACTUAT Fluticasone propionate 0.25 MG /ACTUAT / salmeterol 0.05 MG/ACTUAT Dry Powder Inhaler [Advair] 12/02/2020 12:00:00 AM EDT eCW1 ([facility]) duloxetine 60 MG Delayed Release Oral Capsule [Cymbalt a] 12/02/2020 12:00:00 AM EDT eCW1 ([facility]) duloxetine 60 MG Delayed Release Oral Capsule [Cymbalt a] 12/02/2020 12:00:00 AM EDT eCW1 ([facility]) 60 ACTUAT Fluticasone propionate 0.25 MG /ACTUAT / salmeterol 0.05 MG/ACTUAT Dry Powder Inhaler [Advair] 12/02/2020 12:00:00 AM EDT eCW1 ([facility]) duloxetine 60 MG Delayed Release Oral Capsule [Cymbalt a] 12/02/2020 12:00:00 AM EDT eCW1 ([facility]) 60 ACTUAT Fluticasone propionate 0.25 MG /ACTUAT / salmeterol 0.05 MG/ACTUAT Dry Powder Inhaler [Advair] 12/02/2020 12:00:00 AM EDT eCW1 ([facility]) duloxetine 60 MG Delayed Release Oral Capsule [Cymbalt a] 12/02/2020 12:00:00 AM EDT eCW1 ([facility]) 60 ACTUAT Fluticasone propionate 0.25 MG /ACTUAT / salmeterol 0.05 MG/ACTUAT Dry Powder Inhaler [Advair] 12/02/2020 12:00:00 AM EDT eCW1 ([facility]) duloxetine 60 MG Delayed Release Oral Capsule [Cymbalt a] 12/02/2020 12:00:00 AM EDT eCW1 ([facility]) 60 ACTUAT Fluticasone propionate 0.25 MG /ACTUAT / salmeterol 0.05 MG/ACTUAT Dry Powder Inhaler [Advair] 12/02/2020 12:00:00 AM EDT eCW1 ([facility]) 60 ACTUAT Fluticasone propionate 0.25 MG /ACTUAT / salmeterol 0.05 MG/ACTUAT Dry Powder Inhaler [Advair] 12/02/2020 12:00:00 AM EDT eCW1 ([facility]) Carbamazepine 200 MG Oral Tablet 11/24/2020 12:00:00 AM EDT eCW1 ([facility]) Carbamazepine 200 MG Oral Tablet 11/24/2020 12:00:00 AM EDT eCW1 ([facility]) Carbamazepine 200 MG Oral Tablet 11/24/2020 12:00:00 AM EDT eCW1 ([facility]) Carbamazepine 200 MG Oral Tablet 11/24/2020 12:00:00 AM EDT eCW1 ([facility]) Carbamazepine 200 MG Oral Tablet 11/24/2020 12:00:00 AM EDT eCW1 ([facility]) duloxetine 30 MG Delayed Release Oral Capsule [Cymbalt a] 11/22/2020 12:00:00 AM EDT eCW1 ([facility]) duloxetine 30 MG Delayed Release Oral Capsule [Cymbalt a] 11/22/2020 12:00:00 AM EDT eCW1 ([facility]) duloxetine 30 MG Delayed Release Oral Capsule [Cymbalt a] 11/22/2020 12:00:00 AM EDT eCW1 ([facility]) duloxetine 30 MG Delayed Release Oral Capsule [Cymbalt a] 11/22/2020 12:00:00 AM EDT eCW1 ([facility]) Amphetamine aspartate 5 MG / Amphetamine Sulfate 5 MG / Dextroamphetamine saccharate 5 MG / Dextroamphetamine Sulfate 5 MG Oral Tablet [Adderall] 11/18/2020 12:00:00 AM EDT eCW1 ([facility]) Amphetamine aspartate 5 MG / Amphetamine Sulfate 5 MG / Dextroamphetamine saccharate 5 MG / Dextroamphetamine Sulfate 5 MG Oral Tablet [Adderall] 11/18/2020 12:00:00 AM EDT eCW1 ([facility]) Amphetamine aspartate 5 MG / Amphetamine Sulfate 5 MG / Dextroamphetamine saccharate 5 MG / Dextroamphetamine Sulfate 5 MG Oral Tablet [Adderall] 11/18/2020 12:00:00 AM EDT eCW1 ([facility]) Amphetamine aspartate 5 MG / Amphetamine Sulfate 5 MG / Dextroamphetamine saccharate 5 MG / Dextroamphetamine Sulfate 5 MG Oral Tablet [Adderall] 11/18/2020 12:00:00 AM EDT eCW1 ([facility]) Amphetamine aspartate 5 MG / Amphetamine Sulfate 5 MG / Dextroamphetamine saccharate 5 MG / Dextroamphetamine Sulfate 5 MG Oral Tablet [Adderall] 11/18/2020 12:00:00 AM EDT eCW1 ([facility]) Amphetamine aspartate 5 MG / Amphetamine Sulfate 5 MG / Dextroamphetamine saccharate 5 MG / Dextroamphetamine Sulfate 5 MG Oral Tablet [Adderall] 11/18/2020 12:00:00 AM EDT eCW1 ([facility]) Amphetamine aspartate 5 MG / Amphetamine Sulfate 5 MG / Dextroamphetamine saccharate 5 MG / Dextroamphetamine Sulfate 5 MG Oral Tablet [Adderall] 11/18/2020 12:00:00 AM EDT eCW1 ([facility]) gabapentin 600 MG Oral Tablet 11/01/2020 12:00:00 AM EDT eCW1 ([facility]) gabapentin 600 MG Oral Tablet 11/01/2020 12:00:00 AM EDT eCW1 ([facility]) gabapentin 600 MG Oral Tablet 11/01/2020 12:00:00 AM EDT eCW1 ([facility]) gabapentin 600 MG Oral Tablet 11/01/2020 12:00:00 AM EDT eCW1 ([facility]) gabapentin 600 MG Oral Tablet 11/01/2020 12:00:00 AM EDT eCW1 ([facility]) gabapentin 300 MG Oral Capsule 11/01/2020 12:00:00 AM EDT eCW1 ([facility]) gabapentin 300 MG Oral Capsule 11/01/2020 12:00:00 AM EDT eCW1 ([facility]) gabapentin 300 MG Oral Capsule 11/01/2020 12:00:00 AM EDT eCW1 ([facility]) gabapentin 300 MG Oral Capsule 11/01/2020 12:00:00 AM EDT eCW1 ([facility]) gabapentin 300 MG Oral Capsule 11/01/2020 12:00:00 AM EDT eCW1 ([facility]) gabapentin 300 MG Oral Capsule 11/01/2020 12:00:00 AM EDT eCW1 ([facility]) gabapentin 300 MG Oral Capsule 11/01/2020 12:00:00 AM EDT eCW1 ([facility]) gabapentin 300 MG Oral Capsule 11/01/2020 12:00:00 AM EDT eCW1 ([facility]) gabapentin 300 MG Oral Capsule 11/01/2020 12:00:00 AM EDT eCW1 ([facility]) Amphetamine aspartate 5 MG / Amphetamine Sulfate 5 MG / Dextroamphetamine saccharate 5 MG / Dextroamphetamine Sulfate 5 MG Oral Tablet [Adderall] 10/18/2020 12:00:00 AM EDT eCW1 ([facility]) Amphetamine aspartate 5 MG / Amphetamine Sulfate 5 MG / Dextroamphetamine saccharate 5 MG / Dextroamphetamine Sulfate 5 MG Oral Tablet [Adderall] 10/18/2020 12:00:00 AM EDT eCW1 ([facility]) hydrocortisone acetate 25 MG Rectal Suppository [Anuso l HC] 10/11/2020 12:00:00 AM EDT eCW1 ([facility]) hydrocortisone acetate 25 MG Rectal Suppository [Anuso l HC] 10/11/2020 12:00:00 AM EDT eCW1 ([facility]) hydrocortisone acetate 25 MG Rectal Suppository [Anuso l HC] 10/11/2020 12:00:00 AM EDT eCW1 ([facility]) hydrocortisone acetate 25 MG Rectal Suppository [Anuso l HC] 10/11/2020 12:00:00 AM EDT eCW1 ([facility]) Amphetamine aspartate 5 MG / Amphetamine Sulfate 5 MG / Dextroamphetamine saccharate 5 MG / Dextroamphetamine Sulfate 5 MG Oral Tablet [Adderall] 09/20/2020 12:00:00 AM EDT eCW1 ([facility]) Amphetamine aspartate 5 MG / Amphetamine Sulfate 5 MG / Dextroamphetamine saccharate 5 MG / Dextroamphetamine Sulfate 5 MG Oral Tablet [Adderall] 09/20/2020 12:00:00 AM EDT eCW1 ([facility]) Amphetamine aspartate 5 MG / Amphetamine Sulfate 5 MG / Dextroamphetamine saccharate 5 MG / Dextroamphetamine Sulfate 5 MG Oral Tablet [Adderall] 09/20/2020 12:00:00 AM EDT eCW1 ([facility]) Amphetamine aspartate 5 MG / Amphetamine Sulfate 5 MG / Dextroamphetamine saccharate 5 MG / Dextroamphetamine Sulfate 5 MG Oral Tablet [Adderall] 09/20/2020 12:00:00 AM EDT eCW1 ([facility]) Norethindrone Acet-Ethinyl Est 1-20 MG-MCG 09/02/2020 12:00:00 AM E DT eCW1 ([facility]) Norethindrone Acet-Ethinyl Est 1-20 MG-MCG 09/02/2020 12:00:00 AM E DT eCW1 ([facility]) Norethindrone Acet-Ethinyl Est 1-20 MG-MCG 09/02/2020 12:00:00 AM E DT eCW1 ([facility]) Norethindrone Acet-Ethinyl Est 1-20 MG-MCG 09/02/2020 12:00:00 AM E DT eCW1 ([facility]) Norethindrone Acet-Ethinyl Est 1-20 MG-MCG 09/02/2020 12:00:00 AM E DT eCW1 ([facility]) Norethindrone Acet-Ethinyl Est 1-20 MG-MCG 09/02/2020 12:00:00 AM E DT eCW1 ([facility]) Norethindrone Acet-Ethinyl Est 1-20 MG-MCG 09/02/2020 12:00:00 AM E DT eCW1 ([facility]) Norethindrone Acet-Ethinyl Est 1-20 MG-MCG 09/02/2020 12:00:00 AM E DT eCW1 ([facility]) Amphetamine aspartate 5 MG / Amphetamine Sulfate 5 MG / Dextroamphetamine saccharate 5 MG / Dextroamphetamine Sulfate 5 MG Oral Tablet [Adderall] 07/19/2020 12:00:00 AM EST eCW1 ([facility]) Amphetamine aspartate 5 MG / Amphetamine Sulfate 5 MG / Dextroamphetamine saccharate 5 MG / Dextroamphetamine Sulfate 5 MG Oral Tablet [Adderall] 07/19/2020 12:00:00 AM EST eCW1 ([facility]) Amphetamine aspartate 5 MG / Amphetamine Sulfate 5 MG / Dextroamphetamine saccharate 5 MG / Dextroamphetamine Sulfate 5 MG Oral Tablet [Adderall] 07/19/2020 12:00:00 AM EST eCW1 ([facility]) Amphetamine aspartate 5 MG / Amphetamine Sulfate 5 MG / Dextroamphetamine saccharate 5 MG / Dextroamphetamine Sulfate 5 MG Oral Tablet [Adderall] 07/19/2020 12:00:00 AM EST eCW1 ([facility]) Amphetamine aspartate 5 MG / Amphetamine Sulfate 5 MG / Dextroamphetamine saccharate 5 MG / Dextroamphetamine Sulfate 5 MG Oral Tablet [Adderall] 07/19/2020 12:00:00 AM EST eCW1 ([facility]) Amphetamine aspartate 5 MG / Amphetamine Sulfate 5 MG / Dextroamphetamine saccharate 5 MG / Dextroamphetamine Sulfate 5 MG Oral Tablet [Adderall] 06/17/2020 12:00:00 AM EST eCW1 ([facility]) Amphetamine aspartate 5 MG / Amphetamine Sulfate 5 MG / Dextroamphetamine saccharate 5 MG / Dextroamphetamine Sulfate 5 MG Oral Tablet [Adderall] 04/17/2020 12:00:00 AM EST eCW1 ([facility]) Amphetamine aspartate 5 MG / Amphetamine Sulfate 5 MG / Dextroamphetamine saccharate 5 MG / Dextroamphetamine Sulfate 5 MG Oral Tablet [Adderall] 04/17/2020 12:00:00 AM EST eCW1 ([facility]) Amphetamine aspartate 5 MG / Amphetamine Sulfate 5 MG / Dextroamphetamine saccharate 5 MG / Dextroamphetamine Sulfate 5 MG Oral Tablet [Adderall] 04/17/2020 12:00:00 AM EST eCW1 ([facility]) Amphetamine aspartate 5 MG / Amphetamine Sulfate 5 MG / Dextroamphetamine saccharate 5 MG / Dextroamphetamine Sulfate 5 MG Oral Tablet [Adderall] 04/17/2020 12:00:00 AM EST eCW1 ([facility]) Amphetamine aspartate 5 MG / Amphetamine Sulfate 5 MG / Dextroamphetamine saccharate 5 MG / Dextroamphetamine Sulfate 5 MG Oral Tablet [Adderall] 04/17/2020 12:00:00 AM EST eCW1 ([facility]) Amphetamine aspartate 5 MG / Amphetamine Sulfate 5 MG / Dextroamphetamine saccharate 5 MG / Dextroamphetamine Sulfate 5 MG Oral Tablet [Adderall] 03/15/2020 12:00:00 AM EDT eCW1 ([facility]) Amphetamine aspartate 5 MG / Amphetamine Sulfate 5 MG / Dextroamphetamine saccharate 5 MG / Dextroamphetamine Sulfate 5 MG Oral Tablet [Adderall] 03/15/2020 12:00:00 AM EDT eCW1 ([facility]) Amphetamine aspartate 5 MG / Amphetamine Sulfate 5 MG / Dextroamphetamine saccharate 5 MG / Dextroamphetamine Sulfate 5 MG Oral Tablet [Adderall] 03/15/2020 12:00:00 AM EDT eCW1 ([facility])
[2021-04-15] MEDS ORDERED: DULO60CA35 PO (09:50)
[2021-04-15] MEDS ORDERED: GABA600T4 PO (09:50)
== END 2021-04-14 16:44 | disposition left against medical advice (07) ==
LOC: M ED 14:32
DX: Z53.21 Procedure and treatment not carried out due to patient leaving prior to being seen by health care provider (principal)

== ENCOUNTER 2021-04-23 11:07 | Outpatient (RCR) | payer OTHER ==
[2021-06-10] MEDS ORDERED: ELIQ5TAB (15:04)
[2021-07-09] MEDS ORDERED: DEXA2TA (10:26)
== END 2021-05-13 ==
LOC: M PT 11:07
PROVIDERS: ATTEND Family Medicine
DX: I63.89 Other cerebral infarction (principal)

== ENCOUNTER → 2021-04-23 | Outpatient (REF) | payer OTHER ==
[~2021-04-23] MED LIST changes: +CARB1TAB20 PO; +DULO60CA35 PO; +GABA600T4 PO
[2021-04-23 12:59] LABS: BLOOD UREA NITROGEN 14 MG/DL (7-18); CALCIUM LEVEL 9.2 MG/DL (8.5-10.1); CARBON DIOXIDE LEVEL 25 MEQ/L (21-32); CHLORIDE LEVEL 105 MEQ/L (98-107); CREATININE FOR GFR 0.99 MG/DL (0.55-1.30); GLOMERULAR FILTRATION RATE > 60.0 (>60); GLUCOSE, FASTING 152 MG/DL (70-100); POTASSIUM SERUM 4.3 MEQ/L (3.5-5.1); SODIUM LEVEL 139 MEQ/L (136-145)
== END ==
LOC: M SFHCADAM 08:22
PROVIDERS: ATTEND Family Medicine
DX: R73.03 Prediabetes (principal)

== ENCOUNTER → 2021-04-23 | Outpatient (CLI) | payer OTHER | LOC: M LABSMTC 12:50 | PROVIDERS: ATTEND Anesthesiology | DX: Z01.812 Encounter for preprocedural laboratory examination (principal); Z11.52 Encounter for screening for COVID-19 ==

== ENCOUNTER 2021-04-28 08:37 | Day surgery (SDC) | payer OTHER ==
[~2021-04-28] VITALS: Ht 165.1 cm; Wt 122.5 kg
[~2021-04-28 08:37] MED LIST changes: +LR 1,000 ML IV ONE
[2021-04-28 10:00] LABS: HCG, SERUM QUALITATIVE NEGATIVE (NEGATIVE)
[2021-04-28] MEDS ORDERED: ISOVUE-300 61% 50ML VIAL As Ordered ONE (10:21)
[2021-04-28] MEDS ORDERED: BUPIVACAINE HCL 0.25% 30ML VIAL As Ordered ONE (10:21)
[2021-04-28] MEDS ORDERED: LIDOCAINE 1% SDV 30ML VIAL As Ordered ONE (10:21)
[2021-04-28] MEDS ORDERED: TRIAMCINOLONE ACETONIDE SUSP 40 MG/ML VIAL (J3301) As Ordered ONE (10:21)
[2021-04-28] MEDS ORDERED: MIDAZOLAM INJ 2MG/2ML VIAL (J2250 PER 1MG) As Ordered ONE (10:28)
[2021-04-28] MEDS ORDERED: fentaNYL 100 MCG/2 ML INJECTION (J3010) As Ordered ONE (10:28)
[2021-04-28] MEDS ORDERED: LIDOCAINE 2% 100MG/5ML SDV (FOR ANES.) As Ordered ONE (10:52)
[2021-04-28] MEDS ORDERED: ONDANSETRON 4MG/2ML VIAL As Ordered ONE (11:01)
[2021-04-28] MEDS ORDERED: dexameTHASONE 4 MG/ML 1ML VIAL (J1100 PER 1MG) As Ordered ONE (11:01)
[2021-04-28] MEDS ORDERED: ACETAMINOPHEN 500 MG TAB PO ONE (12:10)
[2021-04-28 12:25] VITALS: BP 132/66
--- NOTE | 2021-04-28 12:56 | REP ---
INDICATION: NEURALGIA. COMPARISON: None. TECHNIQUE: Intraoperative fluoroscopic imaging using portable C-arm technique. FINDINGS: Images demonstrate contrast injection at right cervical facet. Total fluoroscopic time 9.5 seconds. IMPRESSION: Findings consistent with cervical facet block. <Electronically signed by Yung Noel > 04/28/21 [id number]
== END 2021-04-28 12:43 | disposition home or self-care (01) ==
LOC: M SDC 08:37
PROVIDERS: ATTEND Anesthesiology
DX: M79.2 Neuralgia and neuritis, unspecified (principal); G51.8 Other disorders of facial nerve; G50.0 Trigeminal neuralgia; R73.03 Prediabetes; F90.9 Attention-deficit hyperactivity disorder, unspecified type; E28.2 Polycystic ovarian syndrome; K76.0 Fatty (change of) liver, not elsewhere classified; F32.9 Major depressive disorder, single episode, unspecified; G47.33 Obstructive sleep apnea (adult) (pediatric); Z87.891 Personal history of nicotine dependence; Z86.73 Personal history of transient ischemic attack (TIA), and cerebral infarction without residual deficits; Z88.6 Allergy status to analgesic agent
CPT/HCPCS: 36415; 64510; 76000; 84703; J1100; J2250; J2405; J3010; J3301; Q9967

== ENCOUNTER → 2021-04-30 | Outpatient (CLI) | payer OTHER ==
[~2021-04-30] MED LIST changes: -LR 1,000 ML IV ONE
--- NOTE | 2021-04-30 13:53 | REP ---
INDICATION: LOW BACK PAIN COMPARISON: None. TECHNIQUE: AP, lateral, bilateral oblique, and coned-down views of the lumbar spine. FINDINGS: Alignment and lordosis maintained. Vertebral bodies are intact. No acute fracture/compression injury or subluxation. Disc spaces are relatively normal/age-appropriate. No obvious spondylolysis or spondylolisthesis. IMPRESSION: Normal Lumbosacral Spine series. <Electronically signed by Yung Noel > 04/30/21 [id number]
== END ==
LOC: M ADAMS 12:08
PROVIDERS: ATTEND Family Medicine
DX: M54.50 Low back pain, unspecified (principal)

== ENCOUNTER → 2021-05-14 | Outpatient (CLI) | payer OTHER ==
[~2021-05-14] MED LIST changes: +ELIQ5TAB
== END ==
LOC: M PAIN 10:45
PROVIDERS: ATTEND Anesthesiology
DX: M79.2 Neuralgia and neuritis, unspecified (principal); R25.2 Cramp and spasm; G89.29 Other chronic pain; R73.03 Prediabetes; G47.30 Sleep apnea, unspecified; F17.210 Nicotine dependence, cigarettes, uncomplicated; Z86.59 Personal history of other mental and behavioral disorders; Z91.040 Latex allergy status; E66.01 Morbid (severe) obesity due to excess calories; Z68.42 Body mass index [BMI] 45.0-49.9, adult; Z79.899 Other long term (current) drug therapy

== ENCOUNTER 2021-05-15 15:13 | Emergency (ER) | payer OTHER ==
[~2021-05-15] VITALS: Ht 165.1 cm; Wt 122.3 kg
[~2021-05-15 15:13] MED LIST changes: -ELIQ5TAB
[2021-05-15] MEDS ORDERED: NS 1,000 ML IV ONE (15:55)
--- NOTE | 2021-05-15 16:19 | REP ---
INDICATION: DYSPNEA/COUGH. COMPARISON: 04/29/2020. TECHNIQUE: Single portable AP view of the chest was performed. FINDINGS: There is no acute infiltrate or pulmonary edema. Lungs are clear. The heart is not significantly enlarged. The mediastinal silhouette is unremarkable. The visualized osseous structures are intact. IMPRESSION: No acute pulmonary disease. <Electronically signed by Ramos Ramsey > 05/15/21 [id number]
--- OUTSIDE RECORDS SUMMARY | 2021-05-15 16:26 | CCD ---
Author Author [facility] Syst ems Organization [facility] [employer] Syst ems Address Unknown Phone Unavailable Care Team Providers Care Round Kiln Drawer Name Role Phone Valorie Hills Unavailable PROBLEMS Type Condition ICD9-CM Code [id number] Code Onset Dates Condition S tatus W/U Status Risk SNOMED Code Notes Problem Depression, unspecified depression type F32.9 Active confirmed 57033593 Problem Uncomplicated asthma, unspecified asthma severity J45.909 Active confirmed 521071424 Problem Intrinsic eczema L20.84 Active confirmed 240 14448 Problem Obesity, unspecified obesity severity, unspecified obe sity type E66.9 Active confirmed 604284861 Problem Morbid (severe) obesity due to excess calories E66 .01 Active confirmed 763406138 Problem Obesity (BMI 35.0-39.9 without comorbidity) E66.9 Active confirmed 607988751 Problem Nicotine dependence, cigarettes, uncomplicated F17 .210 Active confirmed 46305127 Problem Asthma, unspecified asthma s everity, unspecified whether complicated, unspecified whether persistent J45.909 Active confirmed 490508285 Problem Attention-deficit hyperactivity disorder, combined type F90.2 Active confirmed 53740752 Problem Fatty liver K76.0 Active confirmed 69196657 7 Problem Obesity (BMI 30-39.9) E66.9 Active confirmed 331676662 Problem Gastroesophageal reflux disease without esophagitis K21.9 Active confirmed 388580289 Problem Cigarette nicotine dependence with nicotine-induced di sorder F17.219 Active confirmed 44953165 Problem Morbid obesity E66.01 Active confirmed 32642 6000 Problem Body mass index (BMI) 37.0-37.9, adult Z68.37 A ctive confirmed 805384518 Problem Obstructive sleep apnea G47.33 Active confirmed 45638263 Problem BMI 36.0-36.9,adult Z68.36 Active confirmed 494771121 Problem Neuropathy G62.9 Active confirmed 612404604 Problem ADD (attention deficit disorder) without hyperactivity F98.8 Active confirmed 54590159 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 Active confirmed 446363281 Problem Atopic dermatitis, unspecified type L20.9 Acti ve confirmed 47778080 Problem PCOS (polycystic ovarian syndrome) E28.2 Activ e confirmed 68629106 Problem Other chronic pain G89.29 Active confirmed 8 8437113 Problem Arteriovenous malformation Q27.30 Active confirmed 18298794 Problem Paresthesias R20.2 Active confirmed 0803654 4 Problem Cerebrovascular accident (CVA) due to other mechanism I63.89 Active confirmed 006218454 ALLERGIES Allergen (clinical drug ingredient) Drug/Non Drug Allergy do cumented on EMR Reaction Allergy Type Onset Date Status Latex Latex Rash Drug Allergy Active ENCOUNTERS from 1983 to 2021-05-01 Encounter Location Date Provider Diagnosis [facility] [address] [place] [address] Apr, Valorie Ni-Tartell Low back pain, unspecified M54.50 ; Righ t leg pain M79.604 ; Other chronic pain G89.29 ; Muscle spasm M62.838 and Obstructive sleep apnea G47.33 IMMUNIZATIONS Vaccine Route Administration Date Status Influenza [...] provided REASON FOR REFERRAL from 1983 to 2021-05-01 Reason Please eval and treat L side d low back pain; also R leg pain. Diagnosis 1 Low back pain, unspecified ( M54.50) Diagnosis 2 Right leg pain (M79.604) Referral Organization [facility] Jordon Referring Provider First Name Valorie Referring Provider Last Name Jeana Referring Provider Specialty Family Medicine Referred Organization [facility] Referred Provider Felice Mckeon Referred Address [phone],[place], [place],[address] Referred Provider Specialty Pain Medicine Referral Priority Routine General Notes Drake Wood 04/21/2021 8:14 :35 AM > faxDrake Grossman 04/21/2021 8:17:53 AM > ref#[id number] VITAL SIGNS Weight 269 lbs Apr, Weight-kg 122.02 kg Apr, Height 5'4" in Apr, BMI 46.17 kg/m2 Apr, Heart Rate 114 /min Apr, Respiratory Rate 18 /min Apr, Temperature 97.4 degrees Fahrenheit Apr, Oximetry 96 Apr, Blood pressure systolic 124 mm Hg Apr, Blood pressure diastolic 76 mm Hg Apr, MEDICATIONS Medication SIG (Take, Route, Frequency, Duration) Notes Start Da te End Date Status May Have - amoxicillin not sure of dose tid Not-Taking carBAMazepine 200 MG TAKE ONE TABLET BY MOUTH TWI CE A DAY Orally Twice a day for 30 days Active Emgality 120 MG/ML as directed Subcutaneous once a month Active Cymbalta 60 MG 1 capsule Orally Once a day for 90 days Nov, Active Aloe Vera 99 % 1 application to sunburn on extremities Externally four times daily for 4 days Nov, Not-Taking Belbuca 75 MCG 1 film to the gum Bucally for pain bid for 30 da ys Feb, Not-Taking Adderall 20 MG 1 tab Orally bid for 30 days Apr, Active Cyclobenzaprine HCl 5 MG 1 tablet at bedtime as needed Orall y bid for 5 day(s) Dec, Not-Taking traMADol HCl 50 MG 1 tablet as needed Orally tw ice daily as needed for severe pain, MDD2 for 30 days Feb, Not-Takin g Gabapentin 600 MG 1 capsule Orally twice a day October, Not-Taking Lyrica 50 MG 1 capsule Orally Twice a day for 30 Days 15 J 2020 Not-Taking Ventolin HFA 108 (90 Base) MCG/ACT 2 puffs as needed I nhalation every 4 hrs for 30 days Feb, Active Butrans 5 MCG/HR 1 patch to skin Transdermal change patch every 7 days, alternate sites for 28 days Feb, Not- Taking Gabapentin 400 MG 1 capsule Orally bid for 30 day(s) 20 Oc 2020 Active Triamcinolone Acetonide 0.025 % 1 application External ly to fingers bid for 30 Days Feb, Not-Taking PROCEDURES No Information RESULTS No Results REASON FOR VISIT acute visit MEDICAL (GENERAL) HISTORY Type Description Date Medical [...] perforated blood vessel and hemorrhagic stroke 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 X ray ordered. Apr, Right leg pain (ICD-10 - M79.604) She has altered sensation in this leg, but it is hurting. Referred to pain management. Apr, Other chronic pain (ICD-10 - G89.29) Apr, Muscle spasm (ICD-10 - M62.838) Discussed that this event sounds most consistent with muscle spasm. Apr, Obstructive sleep apnea (ICD-10 - G47.33) Discussed. I asked her to please followup with pulm. She should use a pressure of 11. PLAN OF TREATMENT Treatment Notes Assessment Notes Clinical Notes Low back pain, unspecified She feels paige t this is worse with her increased weight gain. X ray ordered. Right leg pain She has altered sens ation in this leg, but it is hurting. Referred to pain management. Muscle spasm Discussed that this event sounds most consistent with muscle spasm. Obstructive sleep apnea Discussed. I as ked her to please followup with pulm. She should use a pressure of 11. Pending Tests Test Name Order Date XRAY SPINE LUMBOSACRAL COMPLETE XR.[facility] or [facility] 06-24-16 Referrals Referral Date Details Please eval and treat L side d low back pain; also R leg pain., Felice Mckeon, [address] [facility] [address] [facility], [place], [address], Next Appt Details Provider Name:Valorie Hills, 2021-05-28 04:00:00 PM, [address], , [place], [address], Insurance Providers Payer Name Payer Address Payer Phone Insured Name Patient Relati onship to Insured Coverage Start Date Coverage End Date [facility] [facility] [address] [facility] [address] BETH ENCARNACION self
--- OUTSIDE RECORDS SUMMARY | 2021-05-15 16:26 | CCD ---
Author Author [facility] [employer] [facility] Organization [facility]st em[facility] Address Unknown Phone Unavailable Care Team Providers Care Merchandise Marker Name Role Phone Jessenia Navas Unavailable PROBLEMS Type Condition ICD9-CM Code [id number] Code Onset Dates Condition S tatus W/U Status Risk SNOMED Code Notes Problem Depression, unspecified depression type F32.9 Active confirmed 96440774 Problem Uncomplicated asthma, unspecified asthma severity J45.909 Active confirmed 338235217 Problem Intrinsic eczema L20.84 Active confirmed 240 62461 Problem Obesity, unspecified obesity severity, unspecified obe sity type E66.9 Active confirmed 947689550 Problem Morbid (severe) obesity due to excess calories E66 .01 Active confirmed 639063648 Problem Obesity (BMI 35.0-39.9 without comorbidity) E66.9 Active confirmed 187316109 Problem Nicotine dependence, cigarettes, uncomplicated F17 .210 Active confirmed 77192012 Problem Asthma, unspecified asthma s everity, unspecified whether complicated, unspecified whether persistent J45.909 Active confirmed 041645157 Problem Attention-deficit hyperactivity disorder, combined type F90.2 Active confirmed 45878849 Problem Fatty liver K76.0 Active confirmed 17738507 7 Problem Obesity (BMI 30-39.9) E66.9 Active confirmed 514084734 Problem Gastroesophageal reflux disease without esophagitis K21.9 Active confirmed 267306012 Problem Cigarette nicotine dependence with nicotine-induced di sorder F17.219 Active confirmed 73415686 Problem Morbid obesity E66.01 Active confirmed 36274 6002 Problem Body mass index (BMI) 37.0-37.9, adult Z68.37 A ctive confirmed 339658548 Problem Obstructive sleep apnea G47.33 Active confirmed 26766084 Problem BMI 36.0-36.9,adult Z68.36 Active confirmed 147712727 Problem Neuropathy G62.9 Active confirmed 731875473 Problem ADD (attention deficit disorder) without hyperactivity F98.8 Active confirmed 77893926 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 Active confirmed 612796259 Problem Atopic dermatitis, unspecified type L20.9 Acti ve confirmed 22230172 Problem PCOS (polycystic ovarian syndrome) E28.2 Activ e confirmed 43492429 Problem Other chronic pain G89.29 Active confirmed 8 8543953 Problem Arteriovenous malformation Q27.30 Active confirmed 04700323 Problem Paresthesias R20.2 Active confirmed 6615633 4 Problem Cerebrovascular accident (CVA) due to other mechanism I63.89 Active confirmed 196515992 ALLERGIES Allergen (clinical drug ingredient) Drug/Non Drug Allergy do cumented on EMR Reaction Allergy Type Onset Date Status Latex Latex Rash Drug Allergy Active ENCOUNTERS from 1983 to 2021-05-13 Encounter Location Date Provider Diagnosis [address] [place] [address] Apr, Jessenia Navas IMMUNIZATIONS Vaccine Route Administration Date Status Influenza [...] ly to fingers bid for 30 Days 15 Feb, 2021 Not-Taking PROCEDURES No Information RESULTS No Results REASON FOR VISIT Leg pain MEDICAL (GENERAL) HISTORY Type Description Date Medical [...] perforated blood vessel and hemorrhagic stroke 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 Hospitalization History delivery Hospitalization History surgery- STAGE 1 AND STAGE 2 EMBOLIZ ATION Hospitalization History brain bleed oct, 2020 Goals Section No Information Health Concerns No Information MEDICAL EQUIPMENT No Information MENTAL STATUS No Information FUNCTIONAL STATUS No Information ASSESSMENTS No Information PLAN OF TREATMENT Next Appt Details Provider Name:Felice Mckeon, 2021-05-14 10:45:00 AM, [address], , [place], [address], Provider Name:Jessenia Navas, 2021-05 03:15:00 PM, [address], , [place], [address], Provider Name:Valorie Hills, 2021-05-28 04:00:00 PM, [address], , [place], [address], Insurance Providers Payer Name Payer Address Payer Phone Insured Name Patient Relati onship to Insured Coverage Start Date Coverage End Date [facility] COMMUNITY PLAN [facility] [facility] [address] [facility] [address] BETH ENCARNACION self
--- OUTSIDE RECORDS SUMMARY | 2021-05-15 16:26 | CCD ---
Author Author [employer] [facility] Organization [employer] Syst ems Address Unknown Phone Unavailable Care Team Providers Care Rail Filler Name Role Phone Valorie Hills Unavailable PROBLEMS Type Condition ICD9-CM Code PNQ24-FD Code Onset Dates Condition S tatus W/U Status Risk SNOMED Code Notes Problem Depression, unspecified depression type F32.9 Active confirmed 57746380 Problem Uncomplicated asthma, unspecified asthma severity J45.909 Active confirmed 323695342 Problem Intrinsic eczema L20.84 Active confirmed 240 19123 Problem Obesity, unspecified obesity severity, unspecified obe sity type E66.9 Active confirmed 079869339 Problem Morbid (severe) obesity due to excess calories E66 .01 Active confirmed 148854169 Problem Obesity (BMI 35.0-39.9 without comorbidity) E66.9 Active confirmed 433110336 Problem Nicotine dependence, cigarettes, uncomplicated F17 .210 Active confirmed 01302185 Problem Asthma, unspecified asthma s everity, unspecified whether complicated, unspecified whether persistent J45.909 Active confirmed 437188339 Problem Attention-deficit hyperactivity disorder, combined type F90.2 Active confirmed 26769821 Problem Fatty liver K76.0 Active confirmed 69663088 7 Problem Obesity (BMI 30-39.9) E66.9 Active confirmed 041493594 Problem Gastroesophageal reflux disease without esophagitis K21.9 Active confirmed 843974295 Problem Cigarette nicotine dependence with nicotine-induced di sorder F17.219 Active confirmed 79765916 Problem Morbid obesity E66.01 Active confirmed 37760 6002 Problem Body mass index (BMI) 37.0-37.9, adult Z68.37 A ctive confirmed 974841648 Problem Obstructive sleep apnea G47.33 Active confirmed 07255191 Problem BMI 36.0-36.9,adult Z68.36 Active confirmed 912780558 Problem Neuropathy G62.9 Active confirmed 938124503 Problem ADD (attention deficit disorder) without hyperactivity F98.8 Active confirmed 75636968 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 Active confirmed 460029305 Problem Atopic dermatitis, unspecified type L20.9 Acti ve confirmed 89962628 Problem PCOS (polycystic ovarian syndrome) E28.2 Activ e confirmed 73262689 Problem Other chronic pain G89.29 Active confirmed 8 2378991 Problem Arteriovenous malformation Q27.30 Active confirmed 63169553 Problem Paresthesias R20.2 Active confirmed 2513289 4 Problem Cerebrovascular accident (CVA) due to other mechanism I63.89 Active confirmed 953403453 ALLERGIES Allergen (clinical drug ingredient) Drug/Non Drug Allergy do cumented on EMR Reaction Allergy Type Onset Date Status Latex Latex Rash Drug Allergy Active ENCOUNTERS from 1983 to 2021-05-02 Encounter Location Date Provider Diagnosis [facility] [address] [place] [address] Apr, Valorie Ni-Tiffaniell IMMUNIZATIONS Vaccine Route Administration Date Status Influenza [...] Information RESULTS No Results REASON FOR VISIT ref#[id number] MEDICAL (GENERAL) HISTORY Type Description Date Medical [...] perforated blood vessel and hemorrhagic stroke 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 Hospitalization History delivery Hospitalization History surgery- STAGE 1 AND STAGE 2 EMBOLIZ ATION Hospitalization History brain bleed oct, 2020 Goals Section No Information Health Concerns No Information MEDICAL EQUIPMENT No Information MENTAL STATUS No Information FUNCTIONAL STATUS No Information ASSESSMENTS No Information PLAN OF TREATMENT Next Appt Details Provider Name:Felice Mckeon, 2021-05-14 10:45:00 AM, [address], , [place], [address], Provider Name:Valorie Hills, 2021-05-28 04:00:00 PM, [address] , , , [address], Insurance Providers Payer Name Payer Address Payer Phone Insured Name Patient Relati onship to Insured Coverage Start Date Coverage End Date [facility] [place] [address] [facility] [id number] BETH ENCARNACION self
--- OUTSIDE RECORDS SUMMARY | 2021-05-15 16:26 | CCD ---
Author Author [facility] [facility] [facility] Organization [facility] [employer] Address Unknown Phone Unavailable Care Team Providers Care Flight Attendant Inflight Services Name Role Phone Felice Mckeon Unavailable PROBLEMS Type Condition ICD9-CM Code ASE93-AH Code Onset Dates Condition S tatus W/U Status Risk SNOMED Code Notes Problem Depression, unspecified depression type F32.9 Active confirmed 49246931 Problem Uncomplicated asthma, unspecified asthma severity J45.909 Active confirmed 210723460 Problem Intrinsic eczema L20.84 Active confirmed 240 43154 Problem Obesity, unspecified obesity severity, unspecified obe sity type E66.9 Active confirmed 565780475 Problem Morbid (severe) obesity due to excess calories E66 .01 Active confirmed 209392036 Problem Obesity (BMI 35.0-39.9 without comorbidity) E66.9 Active confirmed 596316093 Problem Nicotine dependence, cigarettes, uncomplicated F17 .210 Active confirmed 64229224 Problem Asthma, unspecified asthma s everity, unspecified whether complicated, unspecified whether persistent J45.909 Active confirmed 322440609 Problem Attention-deficit hyperactivity disorder, combined type F90.2 Active confirmed 32622146 Problem Fatty liver K76.0 Active confirmed 14838900 7 Problem Obesity (BMI 30-39.9) E66.9 Active confirmed 861067703 Problem Gastroesophageal reflux disease without esophagitis K21.9 Active confirmed 891736426 Problem Cigarette nicotine dependence with nicotine-induced di sorder F17.219 Active confirmed 99199977 Problem Morbid obesity E66.01 Active confirmed 83473 6002 Problem Body mass index (BMI) 37.0-37.9, adult Z68.37 A ctive confirmed 503780691 Problem Obstructive sleep apnea G47.33 Active confirmed 43415206 Problem BMI 36.0-36.9,adult Z68.36 Active confirmed 975184346 Problem Neuropathy G62.9 Active confirmed 062445168 Problem ADD (attention deficit disorder) without hyperactivity F98.8 Active confirmed 85605856 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 Active confirmed 766154924 Problem Atopic dermatitis, unspecified type L20.9 Acti ve confirmed 90098693 Problem PCOS (polycystic ovarian syndrome) E28.2 Activ e confirmed 97740640 Problem Other chronic pain G89.29 Active confirmed 8 8391528 Problem Arteriovenous malformation Q27.30 Active confirmed 73234171 Problem Paresthesias R20.2 Active confirmed 6098499 4 Problem Cerebrovascular accident (CVA) due to other mechanism I63.89 Active confirmed 950228079 ALLERGIES Allergen (clinical drug ingredient) Drug/Non Drug Allergy do cumented on EMR Reaction Allergy Type Onset Date Status Latex Latex Rash Drug Allergy Active ENCOUNTERS from 1983 to 2021-05-01 Encounter Location Date Provider Diagnosis [facility] [address] Floor [phone] [place] [id number] 17 Apr, 2021 Felice Mckeon IMMUNIZATIONS Vaccine Route Administration Date Status Influenza [...] a day for 30 Days 2020 Not-Taking Ventolin HFA 108 (90 Base) [...] Information RESULTS No Results REASON FOR VISIT follow up appointment MEDICAL (GENERAL) HISTORY Type Description Date Medical [...] perforated blood vessel and hemorrhagic stroke 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 Hospitalization History delivery Hospitalization History surgery- STAGE 1 AND STAGE 2 EMBOLIZ ATION Hospitalization History brain bleed oct, 2020 Goals Section No Information Health Concerns No Information MEDICAL EQUIPMENT No Information MENTAL STATUS No Information FUNCTIONAL STATUS No Information ASSESSMENTS No Information PLAN OF TREATMENT Next Appt Details Provider Name:Felice Mckeon, 2021-05-14 10:45:00 AM, [address], , [place], [address], Provider Name:Valorie Hills, 2021-05-28 04:00:00 PM, [address], , [place], [address], Insurance Providers Payer Name Payer Address Payer Phone Insured Name Patient Relati onship to Insured Coverage Start Date Coverage End Date [facility] [place] [address] [facility] [phone] BETH ENCARNACION self
--- OUTSIDE RECORDS SUMMARY | 2021-05-15 16:26 | CCD ---
Author Author [employer] [facility] Organization [employer] Address Unknown Phone Unavailable Care Team Providers Care Supervisor Electron Tube Processing Name Role Phone Valorie Hills Unavailable PROBLEMS Type Condition ICD9-CM Code [id number] Code Onset Dates Condition S tatus W/U Status Risk SNOMED Code Notes Problem Depression, unspecified depression type F32.9 Active confirmed 64333691 Problem Uncomplicated asthma, unspecified asthma severity J45.909 Active confirmed 299172692 Problem Intrinsic eczema L20.84 Active confirmed 240 01229 Problem Obesity, unspecified obesity severity, unspecified obe sity type E66.9 Active confirmed 003601631 Problem Morbid (severe) obesity due to excess calories E66 .01 Active confirmed 688234671 Problem Obesity (BMI 35.0-39.9 without comorbidity) E66.9 Active confirmed 045451223 Problem Nicotine dependence, cigarettes, uncomplicated F17 .210 Active confirmed 01516070 Problem Asthma, unspecified asthma s everity, unspecified whether complicated, unspecified whether persistent J45.909 Active confirmed 120029244 Problem Attention-deficit hyperactivity disorder, combined type F90.2 Active confirmed 45983135 Problem Fatty liver K76.0 Active confirmed 59084799 7 Problem Obesity (BMI 30-39.9) E66.9 Active confirmed 546327991 Problem Gastroesophageal reflux disease without esophagitis K21.9 Active confirmed 221868689 Problem Cigarette nicotine dependence with nicotine-induced di sorder F17.219 Active confirmed 99206950 Problem Morbid obesity E66.01 Active confirmed 94906 6002 Problem Body mass index (BMI) 37.0-37.9, adult Z68.37 A ctive confirmed 571647951 Problem Obstructive sleep apnea G47.33 Active confirmed 17290036 Problem BMI 36.0-36.9,adult Z68.36 Active confirmed 221725091 Problem Neuropathy G62.9 Active confirmed 111715236 Problem ADD (attention deficit disorder) without hyperactivity F98.8 Active confirmed 71921163 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 Active confirmed 063403925 Problem Atopic dermatitis, unspecified type L20.9 Acti ve confirmed 19558277 Problem PCOS (polycystic ovarian syndrome) E28.2 Activ e confirmed 64823732 Problem Other chronic pain G89.29 Active confirmed 8 0358370 Problem Arteriovenous malformation Q27.30 Active confirmed 01143161 Problem Paresthesias R20.2 Active confirmed 2573901 4 Problem Cerebrovascular accident (CVA) due to other mechanism I63.89 Active confirmed 231624890 ALLERGIES Allergen (clinical drug ingredient) Drug/Non Drug Allergy do cumented on EMR Reaction Allergy Type Onset Date Status Latex Latex Rash Drug Allergy Active ENCOUNTERS from 1983 to 2021-05-05 Encounter Location Date Provider Diagnosis [place] [phone] [place] [address] 16 Apr, 2021 Valorie Ni-Hugh IMMUNIZATIONS Vaccine Route Administration Date Status Influenza [...] Information RESULTS No Results REASON FOR VISIT [facility] clearance MEDICAL (GENERAL) HISTORY Type Description Date Medical [...] perforated blood vessel and hemorrhagic stroke 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 Hospitalization History delivery Hospitalization History surgery- STAGE 1 AND STAGE 2 EMBOLIZ ATION Hospitalization History brain bleed oct, 2020 Goals Section No Information Health Concerns No Information MEDICAL EQUIPMENT No Information MENTAL STATUS No Information FUNCTIONAL STATUS No Information ASSESSMENTS No Information PLAN OF TREATMENT Next Appt Details Provider Name:Felice Mckeon, 2021-05-14 10:45:00 AM, [address], , [place], [address], Provider Name:Valorie Hills, 2021-05-28 04:00:00 PM, [address], , [place], [address], Insurance Providers Payer Name Payer Address Payer Phone Insured Name Patient Relati onship to Insured Coverage Start Date Coverage End Date [facility] [address] [facility] [address] [phone] BETH ENCARNACION self
--- OUTSIDE RECORDS SUMMARY | 2021-05-15 16:26 | CCD ---
Author Author [facility] Organization [facility] [employer] Address Unknown Phone Unavailable Care Team Providers Care Senior Safety Support Manager Name Role Phone Felice Mckeon Unavailable PROBLEMS Type Condition ICD9-CM Code HBD14-YS Code Onset Dates Condition S tatus W/U Status Risk SNOMED Code Notes Problem Depression, unspecified depression type F32.9 Active confirmed 41216446 Problem Uncomplicated asthma, unspecified asthma severity J45.909 Active confirmed 444787757 Problem Intrinsic eczema L20.84 Active confirmed 240 80329 Problem Obesity, unspecified obesity severity, unspecified obe sity type E66.9 Active confirmed 663671245 Problem Morbid (severe) obesity due to excess calories E66 .01 Active confirmed 993339724 Problem Obesity (BMI 35.0-39.9 without comorbidity) E66.9 Active confirmed 314314806 Problem Nicotine dependence, cigarettes, uncomplicated F17 .210 Active confirmed 42637924 Problem Asthma, unspecified asthma s everity, unspecified whether complicated, unspecified whether persistent J45.909 Active confirmed 249040388 Problem Attention-deficit hyperactivity disorder, combined type F90.2 Active confirmed 07020173 Problem Fatty liver K76.0 Active confirmed 86024785 7 Problem Obesity (BMI 30-39.9) E66.9 Active confirmed 285799226 Problem Gastroesophageal reflux disease without esophagitis K21.9 Active confirmed 353672431 Problem Cigarette nicotine dependence with nicotine-induced di sorder F17.219 Active confirmed 66639300 Problem Morbid obesity E66.01 Active confirmed 13369 6008 Problem Body mass index (BMI) 37.0-37.9, adult Z68.37 A ctive confirmed 459325737 Problem Obstructive sleep apnea G47.33 Active confirmed 53150263 Problem BMI 36.0-36.9,adult Z68.36 Active confirmed 638285240 Problem Neuropathy G62.9 Active confirmed 792380910 Problem ADD (attention deficit disorder) without hyperactivity F98.8 Active confirmed 95405049 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 Active confirmed 897398086 Problem Atopic dermatitis, unspecified type L20.9 Acti ve confirmed 19822014 Problem PCOS (polycystic ovarian syndrome) E28.2 Activ e confirmed 28545999 Problem Other chronic pain G89.29 Active confirmed 8 2466889 Problem Arteriovenous malformation Q27.30 Active confirmed 43376800 Problem Paresthesias R20.2 Active confirmed 5832469 4 Problem Cerebrovascular accident (CVA) due to other mechanism I63.89 Active confirmed 854417316 ALLERGIES Allergen (clinical drug ingredient) Drug/Non Drug Allergy do cumented on EMR Reaction Allergy Type Onset Date Status Latex Latex Rash Drug Allergy Active ENCOUNTERS from 1983 to 2021-04-26 Encounter Location Date Provider Diagnosis [facility] [address] Floor [phone] [place] [phone] Mar, Felice Mike IMMUNIZATIONS Vaccine Route Administration Date Status Influenza [...] Orally bid for 30 day(s) 20 Oc , 2020 Active Triamcinolone Acetonide 0.025 % 1 application External ly to fingers bid for 30 Days 15 Feb, 2021 Not-Taking PROCEDURES No Information RESULTS No Results REASON FOR VISIT URGENT!!! 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 Hospitalization History delivery Hospitalization History surgery- STAGE 1 AND STAGE 2 EMBOLIZ ATION Hospitalization History brain bleed oct, 2020 Goals Section No Information Health Concerns No Information MEDICAL EQUIPMENT No Information MENTAL STATUS No Information FUNCTIONAL STATUS No Information ASSESSMENTS No Information PLAN OF TREATMENT Next Appt Details Provider Name:Felice Mckeon, 2021-04-28 09:00:00 AM, [address], , [place], [address], Provider Name:Valorie Hills, 2021-04-30 11:00:00 AM, [address] [facility] , [place], [address], Insurance Providers Payer Name Payer Address Payer Phone Insured Name Patient Relati onship to Insured Coverage Start Date Coverage End Date [facility] [place] [address] [facility] [phone] BETH ENCARNACION self
--- OUTSIDE RECORDS SUMMARY | 2021-05-15 16:29 | CCD ---
Author Author [facility] Organization [facility] Address Unknown Phone Unavailable Support Name Relationship Address Phone SUDHIR CABALLERO Next Of Kin [address] [facility] [address] [place] [id number] JUSTICE HUSSEIN Next Of Kin [address] [place] [address] WALT PEGUERO Next Of Kin Unknown Unavailable Palak Taylor Next Of Kin Unknown Unavailable STACEY Next Of Kin [address] [place] [address] DREW Next Of Kin [address] [place] [address] AR[place] [address] TERESA GRANT Next Of Kin [address] [place] [address] LAUNDRY [place] [address] HARDY ENCARNACION Next Of Kin [address] [place] [address] ST Next Of Kin Unknown Unavailable SUDHIR TAYLOR Next Of Kin [address] [place] [address] UNEMPLOYED [place] [address] UE Next Of Kin Unknown Unavailable PALAK TAYLOR Next Of Kin [address] [place] [address] WALT SUDHIR Next Of Kin [address] [place] [address] ANGELICA CABALLEROI ECON [address] [facility] [address] [place] [id number] Unavailable WALT SUDHIR ECON [address] [place] [address] Unavailable TRI TAYLOR ECON [address] [place] [address] Unavailable Care Team Providers Care Sheet Ironworker Name Role Phone Mike, L Paulina REGULATOR OPERATOR Unavailable Unavailable Mike, L Paulina REGULATOR OPERATOR Unavailable Unavailable Mike, L Paulina REGULATOR OPERATOR Unavailable Unavailable Mike, L Paulina REGULATOR OPERATOR Unavailable Unavailable Mike, L Paulina REGULATOR OPERATOR Unavailable Unavailable Mike, L Paulina REGULATOR OPERATOR Unavailable Unavailable Mike, L Paulina REGULATOR OPERATOR Unavailable Unavailable Mike, L Paulina REGULATOR OPERATOR Unavailable Unavailable Mike, L Paulina REGULATOR OPERATOR Unavailable Unavailable Mike, L Paulina REGULATOR OPERATOR Unavailable Unavailable Mike, L Paulina REGULATOR OPERATOR Unavailable Unavailable Mike, L Paulina REGULATOR OPERATOR Unavailable Unavailable Mike, L Paulina REGULATOR OPERATOR Unavailable Unavailable Mike, L Paulina REGULATOR OPERATOR Unavailable Unavailable Mike, L Paulina REGULATOR OPERATOR Unavailable Unavailable Mike, L Paulina REGULATOR OPERATOR Unavailable Unavailable Mike, L Paulina REGULATOR OPERATOR Unavailable Unavailable Mike, L Paulina REGULATOR OPERATOR Unavailable Unavailable Mike, L Paulina REGULATOR OPERATOR Unavailable Unavailable Mike, L Paulina REGULATOR OPERATOR Unavailable Unavailable Mike, L Paulina REGULATOR OPERATOR Unavailable Unavailable Mike, L Paulina REGULATOR OPERATOR Unavailable Unavailable Mike, L Paulina REGULATOR OPERATOR Unavailable Unavailable Mike, L Paulina REGULATOR OPERATOR Unavailable Unavailable Mike, L Paulina REGULATOR OPERATOR Unavailable Unavailable Padalino, Angel Lindquist MD Unavailable [...] Unavailable Unavailable ISAAC MCDONOUGH MD Unavailable Unavailable CEASAR ISAAC MD Unavailable [...] MD Unavailable Unavailable CEASARISAAC MD Unavailable Unavailable ECASARISAAC MD Unavailable Unavailable CEASARISAAC MD Unavailable Unavailable CEASARISAAC CORONADO MD Unavailable Unavailable CEASARISAAC MD Unavailable Unavailable CEASARISAAC MD Unavailable Unavailable ISAAC MCDONOUGH MD Unavailable [...] E Jackie MD Unavailable Unavailable Shruthi, E Jakcie MD Unavailable Unavailable Shruthi, E Jackie MD [...] Unavailable Shruthi, E Jackie MD Unavailable Unavailable Carolina Hawkins MD Unavailable Unavailable ShruthiCarolina mcconnell MD Unavailable Unavailable ShruthiCarolina mcconnell MD Unavailable Unavailable Carloina Hawkins MD Unavailable Unavailable ShruthiCaorlina mcconnell MD Unavailable Unavailable ShruthiCarolina mcconnell MD Unavailable Unavailable ShruthiCarolina mcconnell MD Unavailable Unavailable ShruthiCarolina mcconnell MD Unavailable Unavailable Shabana Acuna MD Unavailable [...] Shabana Acuna MD Unavailable Unavailable Shabana Acuna Samah Unavailable Unavailable Shabana Acuna MD Unavailable Unavailable Shabana Acuna Samah Unavailable Unavailable Shabana Acuna MD Unavailable Unavailable Armand O Samah Unavailable Unavailable Armand O Yobanyah Unavailable Unavailable Armand O Samah Unavailable Unavailable Shabana Acuna MD Unavailable Unavailable Armand O Echo MILLIGAN Unavailable Unavailable Armand O Echo MILLIGAN Unavailable Unavailable Shabana Acuna MD Unavailable Unavailable Armand O Samah Unavailable Unavailable Armand O Yobanyah Unavailable Unavailable Shabana Acuna MD Unavailable Unavailable Shabana Acuna MD Unavailable Unavailable Shabana Acuna MD Unavailable Unavailable Shabana Acuna MD Unavailable Unavailable Armand O Echo MILLIGAN Unavailable Unavailable Shabana Acuna MD Unavailable Unavailable Shabana Acuna MD Unavailable Unavailable Shabana Acuna MD Unavailable Unavailable Shabana Acuna MD Unavailable Unavailable Shabana Acuna MD Unavailable Unavailable Shabana Acuna MD Unavailable Unavailable Shabana Acuna MD Unavailable Unavailable Shabana Acuna MD Unavailable Unavailable Shabana Acuna MD Unavailable Unavailable Shabana Acuna MD Unavailable Unavailable Shabana Acunaah Unavailable Unavailable Shabana Acnua MD Unavailable Unavailable Shabana Acuna MD Unavailable Unavailable Shabana Acuna MD Unavailable Unavailable Shabana Acuna MD Unavailable Unavailable Shabana Acuna MD Unavailable Unavailable Shabana Acunaah Unavailable Unavailable Shabana Acuna MD Unavailable Unavailable Shabana Acuna MD Unavailable Unavailable Shabana Acuna MD Unavailable Unavailable Shabana Acunaah Unavailable Unavailable Armand O Yobanyah Unavailable Unavailable ISAAC MCDONOUGH MD Unavailable Unavailable ISAAC MCDONOUGH MD Unavailable Unavailable ISAAC MCDONOUGH MD Unavailable Unavailable ISAAC MCDONOUGH MD Unavailable Unavailable CEASAR ISAAC MD Unavailable [...] Unavailable Unavailable CEASARISAAC MD Unavailable Unavailable CEASAR SIAAC MD Unavailable Unavailable CEASARISAAC ALONZO MD Unavailable Unavailable CEASARISAAC ALNOZO MD Unavailable Unavailable CEASARISAAC ALONZO MD Unavailable Unavailable CEASARISAAC ALONZO MD Unavailable Unavailable CEASARISAAC ALONZO MD Unavailable Unavailable CEASARISAAC ALONZO MD Unavailable Unavailable ISAAC MCDONOUGH MD Unavailable Unavailable Padalino, Angel Lindquist MD [...] Unavailable CEASARISAAC ALONZO MD Unavailable Unavailable CEASARISAAC CORONADO MD Unavailable Unavailable CEASARISAAC ALONZO MD Unavailable Unavailable CEASARISAAC ALONZO MD Unavailable Unavailable CEASARISAAC ALONZO MD Unavailable Unavailable CEASARISAAC ALONZO MD Unavailable Unavailable CEASARISAAC ALONZO MD Unavailable Unavailable CEASARISAAC CORONADO MD Unavailable Unavailable CEASARISAAC CORONADO MD Unavailable Unavailable CEASARISAAC MD Unavailable Unavailable CEASARISAAC MD Unavailable Unavailable SAGAR, 0000{ Unavailable Unavailable [...] Padalino, Angel Lindquist MD Unavailable Unavailable Padalino, Agnel Lindquist MD Unavailable Unavailable Padalino, Angel Lindquist [...] Unavailable Padalino, Angel Lindquist MD Unavailable Unavailable PHYSICIAN, ER Unavailable Unavailable [...] is protected by Article 27-F of the [place] Public Health law. If you continue you may have access to information: Regarding HIV / AIDS; Provided by facilities licensed or operated by the [place] Office of Mental Health; or Provided by the [place] Office for People With Developmental Disabilities. If such information is present, then the following [place] mandated warning applies: This information has been [...] law may result in a fine or custodial sentence or both. A general authorization for the release of medical or other information is NOT sufficient authorization for further disc losure. Allergies and Adverse Reactions Type Description Substance Reaction Status Data Source(s ) Drug allergy No Known Drug Allergies No Known Drug Allergies [facility] Family History Family Member Name Family Member Gender Family Member Status Date o f Status Description Data Source(s) Unknown Unknown Problem MEDENT ([facility]) Encounters Encounter Providers Location Date Indications Data Source(s ) Unknown [address] [facility] [place] [address] 05/12/2021 12:00:00 AM EST [facility] ([facility]) Unknown [address] [facility] [place] [address] 05/01/2021 12:00:00 AM EST [facility]CW1 ([facility]) Outpatient Attender: Jackie MOYeferrer: ISAAC MCDONOUGH MD [id number] 04/30/2021 11:13:01 AM EST [facility] Unknown [address] [facility] [place] [address] 04/30/2021 12:00:00 AM EST eCW1 ([facility]) Unknown [address] [facility] [place] [address] 04/29/2021 12:00:00 AM EST eCW1 ([facility]) Outpatient Attender: Jackie MOYeferrer: ISAAC MCDONOUGH MD [id number] 04/25/2021 11:43:05 AM EST [facility] Outpatient [address] [facility] [place] [address] 04/18/2021 12:00:00 AM EDT eCW1 ([facility]) Unknown [address] [facility] [place] [address] 04/17/2021 12:00:00 AM EDT eCW1 ([facility]) Unknown [address] [facility] [place] [address] 04/09/2021 12:00:00 AM EDT [facility]CW1 [facility]) Outpatient Attender: Jackie Hawkins MDReferrer: ISAAC MCDONOUGH MD [id number] 04/05/2021 10:05:40 AM EDT [facility] [place] [address] [facility] [place] [address] 04/04/2021 12:00:00 AM EDT eCW1 ([facility]) [place] [address] [facility] [place] [address] 04/02/2021 12:00:00 AM EDT eCW1 ([facility]) Outpatient Attender: Paulina Ricardo/[place]/Jet/Reindl 04/01/2021 12:30:00 PM EDT MEDENT ([facility]) [place] [address] [facility] [place] [address] 03/17/2021 12:00:00 AM EDT eCW1 ([facility]) [place] [address] [facility] [place] [address] 03/17/2021 12:00:00 AM EDT eCW1 ([facility]) Outpatient Attender: Paulina Ricardo/[place]/Jet/Reindl 03/12/2021 10:00:00 AM EDT MEDENT ([facility]) Outpatient Attender: Echo Acuna MD Main office - [facility] 03/06/2021 01:30:00 PM EDT MEDENT ([facility] [place] [address] [facility] [place] [address] 03/06/2021 12:00:00 AM EDT eCW1 ([facility]) [place] [address] [facility] [place] [address] 03/05/2021 12:00:00 AM EDT eCW1 ([facility]) [place] [address] [facility] [place] [address] 03/05/2021 12:00:00 AM EDT eCW1 ([facility]) [place] [address] [facility] [place] [address] 03/04/2021 12:00:00 AM EDT eCW1 ([facility]) [place] [address] [facility] [place] [address] 02/27/2021 12:00:00 AM EDT eCW1 ([facility]) [place] [address] [facility] [place] [address] 02/26/2021 12:00:00 AM EDT eCW1 ([facility]) [place] [address] [facility] [place] [address] 02/26/2021 12:00:00 AM EDT eCW1 ([facility]) [place] [address] [facility] [place] [address] 02/18/2021 12:00:00 AM EDT eCW1 ([facility]) [place] [address] [facility] [place] [address] 02/14/2021 12:00:00 AM EDT eCW1 ([facility]) [place] [address] [facility] [place] [address] 02/12/2021 12:00:00 AM EDT eCW1 ([facility]) [place] [address] [facility] [place] [address] 02/10/2021 12:00:00 AM EDT eCW1 ([facility]) Outpatient Attender: Jackie Hawkins MDReferrer: ISAAC MCDONOUGH MD [id number] 01/21/2021 03:33:17 PM EDT [facility] Outpatient Attender: Jackie Hawkins MDReferrer: ISAAC MCDONOUGH MD _[id number] 01/21/2021 03:33:15 PM EDT [facility] Outpatient Attender: Jackie MOYeferrer: ISAAC MCDONOUGH MD [id number] 01/20/2021 04:24:52 PM EDT [facility] Outpatient Attender: Jackie Hawkins MDReferrer: ISAAC MCDONOUGH MD _[id number] 01/20/2021 04:24:51 PM [...] [facility] Unknown [address] [facility] [place], [facility] [address] 01/16/2021 12:00:00 AM EDT eCW1 ([facility]) Outpatient Referrer: ISAAC MCDONOUGH MD 01/15/2021 07:46:2 3 PM EDT [facility] Outpatient Referrer: ISAAC MCDONOUGH MD 01/15/2021 02:13:4 2 PM EDT [facility] Unknown [address] [place] [address], [facility] [address] 01/15/2021 12:00:00 AM EDT eCW1 ([facility]) Outpatient Referrer: ISAAC MCDONOUGH MD 01/01/2021 12:00:5 7 PM EDT [facility] Outpatient 01/01/2021 12:00:46 PM EDT [facility] Outpatient 01/01/2021 11:59:35 AM EDT [facility] Unknown [address] [facility] [place], [facility] [address] 01/01/2021 12:00:00 AM EDT eCW1 ([facility]) Outpatient Attender: ISAAC MCDONOUGH MD [facility] [place] 12/31/2020 01:00:00 PM EDT MEDENT ([facility]) Unknown [address] [facility] [place], [facility] [address] 12/31/2020 12:00:00 AM EDT eCW1 ([facility]) Outpatient [address] [place] [address] [address] 12/26/2020 12:00:00 AM EDT eCW1 ([facility]) [place] [address] [facility] [place] [address] 12/26/2020 12:00:00 AM EDT eCW1 ([facility]) [place] [address] [facility] [place] [address] 12/24/2020 12:00:00 AM EDT eCW1 ([facility]) [place] [address] [facility] [place] [address] 12/19/2020 12:00:00 AM EDT eCW1 ([facility]) [place] [address] [facility] [place] [address] 12/17/2020 12:00:00 AM EDT eCW1 ([facility]) Unknown [address] [facility] [place] [address] 12/06/2020 12:00:00 AM EDT eCW1 ([facility]) [place] [address] [facility] [place] [address] 12/04/2020 12:00:00 AM EDT eCW1 ([facility]) [place] [address] [facility] [place] [address] 12/02/2020 12:00:00 AM EDT eCW1 ([facility]) Outpatient [address] [facility] [place] [address] 12/02/2020 12:00:00 AM EDT eCW1 [facility]) Outpatient Attender: Lexa Padilla MD [facility] [place] 11/29/2020 03:20:00 PM EDT MEDNIRAJ ([facility]) Outpatient 11/29/2020 01:15:00 PM EDT [facility] Unknown [address] [facility] [place] [address] 11/27/2020 12:00:00 AM EDT eCW1 ([facility] [place] [address] [facility] [place] [address] 11/26/2020 12:00:00 AM EDT eCW1 ([facility]) [place] [address] [facility] [place] [address] 11/22/2020 12:00:00 AM EDT eCW1 ([facility]) Outpatient Attender: Echo Acuna MD Main office - [facility] 11/21/2020 12:45:00 PM EDT MEDENT ([facility]) [place] [address] [facility] [place] [address] 11/20/2020 12:00:00 AM EDT eCW1 ([facility]) [place] [address] [facility] [place] [address] 11/20/2020 12:00:00 AM EDT eCW1 ([facility]) [place] [address] [facility] [place] [address] 11/18/2020 12:00:00 AM EDT eCW1 ([facility]) Outpatient Attender: ISAAC MCDONOUGH MD [facility] [place] 11/17/2020 02:35:00 AM EDT MEDENT ([facility]) Inpatient Attender: ISAAC MCDONOUGH MD 11/16/2020 09:10:3 1 AM EDT [facility] Inpatient Attender: ISAAC MCDONOUGH MD 11/16/2020 04:49:0 0 AM EDT [facility] Inpatient Attender: ISAAC MCDONOUGH MD Attender: ER PHYSICIANAdmitter: ISAAC MCDONOUGH MD 11/16/2020 03:46:00 AM EDT - 11/17/2020 11:09:00 AM EDT INTRACRANIAL HEMORRHAGE [facility] INTRACRANIAL HEMORRHAGE Patient discharged. Outpatient Attender: ISAAC MCDONOUGH MD [facility] [place] 11/16/2020 02:35:00 AM EDT MEDENT ([facility]) [place] [address] [facility] [place] [address] 11/12/2020 12:00:00 AM EDT eCW1 ([facility]) Out[place] [address] [facility] [place] [address] 11/01/2020 12:00:00 AM EDT eCW1 ([facility]) Unknown [address] [facility] [place] [address] 10/31/2020 12:00:00 AM EDT eCW1 ([facility]) [place] [address] [facility] [place] [address] 10/30/2020 12:00:00 AM EDT eCW1 ([facility]) Outpatient Attender: Lexa Padilla MD [facility]MP [facility] [place] 10/27/2020 11:11:00 AM EDT MEDENT ([facility]) [place] [address] [facility] [place] [address] 10/27/2020 12:00:00 AM EDT eCW1 ([facility]) Inpatient Attender: Lexa Padilla MD 10/26/2020 02:37:21 AM EDT [facility] Outpatient Attender: Lexa Padilla MD [facility] [place] 10/26/2020 02:36:00 AM EDT MEDENT ([facility]) Outpatient Attender: Lexa Padilla MD 10/12 08:56:00 AM EDT - 10/27/2020 12:22:00 PM EDT [facility] Inpatient Attender: Lexa Padilla MDAdmitter: Lexa boyce MD 10/25/2020 08:56:00 AM EDT - 10/27/2020 12:22:00 PM EDT AVM [facility] AVM Patient discharged. [place] [address] [facility] [place] [address] 10/18/2020 12:00:00 AM EDT eCW1 ([facility]) [place] [address] [facility] [place] [address] 10/16/2020 12:00:00 AM EDT eCW1 ([facility]) [place] [address] [facility] [place] [address] 10/11/2020 12:00:00 AM EDT eCW1 ([facility]) Outpatient Attender: Lexa Padilla MD [facility] [place] 10/01/2020 11:40:00 AM EDT MEDENT ([facility]) [place] [address] [facility] [place] [address] 09/17/2020 12:00:00 AM EDT eCW1 ([facility]) [place] [address] [facility] [place] [address] 09/13/2020 12:00:00 AM EDT eCW1 ([facility]) Outpatient Attender: Lexa Padilla MD [facility] [place] 09/10/2020 02:51:00 AM EDT MEDENT ([facility]) Inpatient Attender: Lexa Padilla MD 09/09/2020 09:49:16 AM EDT [facility] Attender: 0000{ [place] 09:10:00 AM EDT - 09/10/2020 11:45:00 AM EDT [facility] Inpatient Attender: Lexa Padilla MDAdmitter: Lexa boyce MD 09/09/2020 09:10:00 AM EDT - 09/10/2020 11:45:00 AM EDT AVM EMBOLIZATION [facility] AVM EMBOLIZATION Patient discharged. [place] [address] [facility] [place] [address] 09/06/2020 12:00:00 AM EDT eCW1 ([facility]) Outpatient [address] [facility] [place] [address] 09/02/2020 12:00:00 AM EDT eCW1 ([facility]) Outpatient Attender: Echo Acuna MD Main office - [facility] 08/26/2020 11:30:00 AM EDT MEDENT ([facility]) Outpatient Attender: Lexa Padilla MD [facility] [place] 08/23/2020 02:00:00 PM EST MEDENT ([facility]) [place] [address] [place] [address] 08/17/2020 12:00:00 AM EST eCW1 ([facility]) [place] [address] [place] [address] 08/17/2020 12:00:00 AM EST [facility]CW1 ([facility]) [place] [address] [facility] [place] [address] 08/17/2020 12:00:00 AM EST eCW1 ([facility]) Unknown [address] [place] [address] 08/17/2020 12:00:00 AM EST eCW1 ([facility]) Outpatient Attender: Lexa Padilla MD 08/15/2020 09:28:49 AM EST [facility] Outpatient Attender: Lexa Padilla MDAdmitter: Lexa boyce MD 08/15/2020 09:07:00 AM EST - 08/15/2020 11:30:00 AM EST ARTERIOVENOUS MALFORMATION OF CEREBRAL VESSELS [facility] ARTERIOVENOUS MALFORMATION OF CEREBRAL V ESSELS Patient discharged. Outpatient Attender: 0000{ [place] 08/15/2020 09:07:00 AM E [facility] Outpatient Attender: Lexa Padilla MD [facility] [place] 08/07/2020 01:00:00 PM EST MEDENT ([facility]) [place] [address] [place] [address] 07/17/2020 12:00:00 AM EST eCW1 ([facility]) Unknown [address] [place] [address] 06/16/2020 12:00:00 AM EST eCW1 ([facility]) Outpatient Attender: Echo Acuna MD Main office - [facility] 05/28/2020 07:00:00 AM EST MEDENT ([facility] ) [place] [address] [place] [address] 05/03/2020 12:00:00 AM EST eCW1 ([facility]) [place] [address] [place] [address] 04/30/2020 12:00:00 AM EST eCW1 ([facility]) [place] [address] [place] [address] 04/29/2020 12:00:00 AM EST eCW1 ([facility]) Unknown [address] [place] [address] 04/19/2020 12:00:00 AM EST eCW1 ([facility]) Unknown [address] [place] [address] 04/16/2020 12:00:00 AM EST eCW1 ([facility]) Unknown [address] [place] [address] 03/18/2020 12:00:00 AM EDT eCW1 ([facility]) Immunizations Vaccine Date Status Description Data Source(s) COVID-19 VACC, MRNA(PFIZER)/PF 04/17/2021 12:00:00 AM EDT completed [facility] COVID-19 VACCINE Pfizer 04/17/2021 12:00:00 AM EDT completed [employer] Vaccine Series Complete: YESThis Data wa s Submitted to [facility] [employer]. influenza, recombinant, quadrIvalent,injectable, prese rvative free 04/02/2021 05:09:00 PM EDT completed eCW1 ([facility]) influenza, recombinant, quadrIvalent,injectable, prese rvative free 04/02/2021 05:09:00 PM EDT completed eCW1 ([facility]) influenza, recombinant, quadrIvalent,injectable, prese rvative free 04/02/2021 05:09:00 PM EDT completed eCW1 ([facility]) influenza, recombinant, quadrIvalent,injectable, prese rvative free 04/02/2021 05:09:00 PM EDT completed eCW1 ([facility]) influenza, recombinant, quadrIvalent,injectable, prese rvative free 04/02/2021 05:09:00 PM EDT completed eCW1 ([facility]) influenza, recombinant, quadrIvalent,injectable, prese rvative free 04/02/2021 05:09:00 PM EDT completed eCW1 ([facility]) influenza, recombinant, quadrIvalent,injectable, prese rvative free 04/02/2021 05:09:00 PM EDT completed eCW1 ([facility]) influenza, recombinant, quadrIvalent,injectable, prese rvative free 04/02/2021 05:09:00 PM EDT completed eCW1 ([facility]) influenza, recombinant, quadrIvalent,injectable, prese rvative free 04/02/2021 05:09:00 PM EDT completed eCW1 ([facility]) Pfizer Covid-19 Sars-Cov-2, mRNA, LNP-S, PF, 30 mcg/ 0 .3 mL 09/13/2020 12:00:00 AM EDT completed [facility] ([facility]) COVID-19 ([facility]), mRNA, LNP-S, PF, 30 mcg/0.3 mL dose 09/13/2020 12:00:00 AM EDT completed [facility] COVID-19 VACCINE Pfizer 09/13/2020 12:00:00 AM EDT completed [facility] Complete: YESThis Data wa s Submitted to [email or web address]. COVID-19 (Pfizer), mRNA, LNP-S, PF, 30 mcg/0.3 mL dose 08/23/2020 12:00:00 AM EST completed [facility] COVID-19 VACCINE Pfizer 08/23/2020 12:00:00 AM EST completed [facility] Vaccine Series Complete: NOThis Data was Submitted to [facility] [email or web address]. Pfizer Covid-19 Sars-Cov-2, mRNA, LNP-S, PF, 30 mcg/ 0 .3 mL 08/22/2020 11:00:00 PM EST completed [facility] ([facility]) Medications Medication Brand Name Start Date Product Form Dose Route Admi nistrative Instructions Pharmacy Instructions Status Indications Reaction Description Data Source(s) Amphetamine aspartate 5 MG / Amphetamine Sulfate 5 MG / Dextroamphetamine saccharate 5 MG / Dextroamphetamine Sulfate 5 MG Oral Tablet [Adderall] Adderall 20 MG Adderall 20 MG 04/17/2021 12:00:00 AM EDT a ctive Adderall 20 MG eCW1 ([facility]) Amphetamine aspartate 5 MG / Amphetamine Sulfate 5 MG / Dextroamphetamine saccharate 5 MG / Dextroamphetamine Sulfate 5 MG Oral Tablet [Adderall] Adderall 20 MG Adderall 20 MG 04/17/2021 12:00:00 AM EDT a ctive Adderall 20 MG eCW1 ([facility]) Amphetamine aspartate 5 MG / Amphetamine Sulfate 5 MG / Dextroamphetamine saccharate 5 MG / Dextroamphetamine Sulfate 5 MG Oral Tablet [Adderall] Adderall 20 MG Adderall 20 MG 04/17/2021 12:00:00 AM EDT a ctive Adderall 20 MG eCW1 ([facility]) Amphetamine aspartate 5 MG / Amphetamine Sulfate 5 MG / Dextroamphetamine saccharate 5 MG / Dextroamphetamine Sulfate 5 MG Oral Tablet [Adderall] Adderall 20 MG Adderall 20 MG 04/17/2021 12:00:00 AM EDT a ctive Adderall 20 MG eCW1 ([facility]) Amphetamine aspartate 5 MG / Amphetamine Sulfate 5 MG / Dextroamphetamine saccharate 5 MG / Dextroamphetamine Sulfate 5 MG Oral Tablet [Adderall] Adderall 20 MG Adderall 20 MG 04/17/2021 12:00:00 AM EDT a ctive Adderall 20 MG eCW1 ([facility]) Amphetamine aspartate 5 MG / Amphetamine Sulfate 5 MG / Dextroamphetamine saccharate 5 MG / Dextroamphetamine Sulfate 5 MG Oral Tablet [Adderall] Adderall 20 MG Adderall 20 MG 04/17/2021 12:00:00 AM EDT a ctive Adderall 20 MG eCW1 ([facility]) Amphetamine aspartate 5 MG / Amphetamine Sulfate 5 MG / Dextroamphetamine saccharate 5 MG / Dextroamphetamine Sulfate 5 MG Oral Tablet [Adderall] Adderall 20 MG Adderall 20 MG 04/17/2021 12:00:00 AM EDT a ctive Adderall 20 MG eCW1 ([facility]) 20 mg 04/17/2021 12:00:00 AM EDT tablet 60 TAKE ONE TABLET BY MOUTH TWICE A DAY MAXIMUM DAILY DOSE = 2 TABLETS TAKE ONE TABLET BY MOUTH TWICE A DAY MAX IMUM DAILY DOSE = 2 TABLETS SOLD: 04/18/2021 [facility] 90 mcg/actuation 04/10/2021 12:00:00 AM EDT HFA aerosol inha ler 18 INHALE 2 PUFFS BY MOUTH EVERY 4 HOURS NEEDED INHALE 2 PUFFS BY MOUTH EVERY 4 HOURS NEEDED SOLD: 04/17/2021 [facility] 400 mg 04/03/2021 12:00:00 AM EDT capsule 60 TAKE ONE CAPSULE BY MOUTH TWICE A DAY TAKE ONE CAPSULE BY MOUTH TWICE A DAY SOLD: 04/03/2021 [facility] gabapentin 400 MG Oral Capsule Gabapentin 400 MG Gabapentin 400 MG 04/02/2021 12:00:00 AM EDT 1.0 {capsule} active G abapentin 400 MG eCW1 ([facility]) gabapentin 400 MG Oral Capsule Gabapentin 400 MG Gabapentin 400 MG 04/02/2021 12:00:00 AM EDT 1.0 {capsule} active G abapentin 400 MG eCW1 ([facility]) gabapentin 400 MG Oral Capsule Gabapentin 400 MG Gabapentin 400 MG 04/02/2021 12:00:00 AM EDT 1.0 {capsule} active G abapentin 400 MG eCW1 ([facility]) gabapentin 400 MG Oral Capsule Gabapentin 400 MG Gabapentin 400 MG 04/02/2021 12:00:00 AM EDT 1.0 {capsule} active G abapentin 400 MG eCW1 ([facility]) gabapentin 400 MG Oral Capsule Gabapentin 400 MG Gabapentin 400 MG 04/02/2021 12:00:00 AM EDT 1.0 {capsule} active G abapentin 400 MG eCW1 ([facility]) gabapentin 400 MG Oral Capsule Gabapentin 400 MG Gabapentin 400 MG 04/02/2021 12:00:00 AM EDT 1.0 {capsule} active G abapentin 400 MG eCW1 ([facility]) gabapentin 400 MG Oral Capsule Gabapentin 400 MG Gabapentin 400 MG 04/02/2021 12:00:00 AM EDT 1.0 {capsule} active G abapentin 400 MG eCW1 ([facility]) gabapentin 400 MG Oral Capsule Gabapentin 400 MG Gabapentin 400 MG 04/02/2021 12:00:00 AM EDT 1.0 {capsule} active G abapentin 400 MG eCW1 ([facility]) gabapentin 400 MG Oral Capsule Gabapentin 400 MG Gabapentin 400 MG 04/02/2021 12:00:00 AM EDT 1.0 {capsule} active G abapentin 400 MG eCW1 ([facility]) 20 mg 03/19/2021 12:00:00 AM EDT [...] EDT a ctive Adderall 20 MG eCW1 ([facility]) Amphetamine aspartate 5 MG / Amphetamine Sulfate 5 MG / Dextroamphetamine saccharate 5 MG / Dextroamphetamine Sulfate 5 MG Oral Tablet [Adderall] Adderall 20 MG Adderall 20 MG 03/17/2021 12:00:00 AM EDT a ctive Adderall 20 MG eCW1 ([facility]) Amphetamine aspartate 5 MG / Amphetamine Sulfate 5 MG / Dextroamphetamine saccharate 5 MG / Dextroamphetamine Sulfate 5 MG Oral Tablet [Adderall] Adderall 20 MG Adderall 20 MG 03/17/2021 12:00:00 AM EDT a ctive Adderall 20 MG eCW1 ([facility]) Amphetamine aspartate 5 MG / Amphetamine Sulfate 5 MG / Dextroamphetamine saccharate 5 MG / Dextroamphetamine Sulfate 5 MG Oral Tablet [Adderall] Adderall 20 MG Adderall 20 MG 03/17/2021 12:00:00 AM EDT a ctive Adderall 20 MG eCW1 ([facility]) 50 mg 03/07/2021 12:00:00 AM EDT [...] {tablet_as_needed} active traMADol HCl 50 MG eCW1 ([facility]) tramadol hydrochloride 50 MG Oral Tablet traMADol HCl 50 MG traMADol HCl 50 MG 03/05/2021 12:00:00 AM EDT 1.0 {tablet_as_needed} suspended traMADol HCl 50 MG eCW1 ([facility]) tramadol hydrochloride 50 MG Oral Tablet traMADol HCl 50 MG traMADol HCl 50 MG 03/05/2021 12:00:00 AM EDT 1.0 {tablet_as_needed} suspended traMADol HCl 50 MG eCW1 ([facility]) tramadol hydrochloride 50 MG Oral Tablet traMADol HCl 50 MG traMADol HCl 50 MG 03/05/2021 12:00:00 AM EDT 1.0 {tablet_as_needed} active traMADol HCl 50 MG eCW1 ([facility]) tramadol hydrochloride 50 MG Oral Tablet traMADol HCl 50 MG traMADol HCl 50 MG 03/05/2021 12:00:00 AM EDT 1.0 {tablet_as_needed} suspended traMADol HCl 50 MG eCW1 ([facility]) tramadol hydrochloride 50 MG Oral Tablet traMADol HCl 50 MG traMADol HCl 50 MG 03/05/2021 12:00:00 AM EDT 1.0 {tablet_as_needed} active traMADol HCl 50 MG eCW1 ([facility]) tramadol hydrochloride 50 MG Oral Tablet traMADol HCl 50 MG traMADol HCl 50 MG 03/05/2021 12:00:00 AM EDT 1.0 {tablet_as_needed} active traMADol HCl 50 MG eCW1 ([facility]) tramadol hydrochloride 50 MG Oral Tablet traMADol HCl 50 MG traMADol HCl 50 MG 03/05/2021 12:00:00 AM EDT 1.0 {tablet_as_needed} suspended traMADol HCl 50 MG eCW1 ([facility]) tramadol hydrochloride 50 MG Oral Tablet traMADol HCl 50 MG traMADol HCl 50 MG 03/05/2021 12:00:00 AM EDT 1.0 {tablet_as_needed} suspended traMADol HCl 50 MG eCW1 ([facility]) tramadol hydrochloride 50 MG Oral Tablet traMADol HCl 50 MG traMADol HCl 50 MG 03/05/2021 12:00:00 AM EDT 1.0 {tablet_as_needed} suspended traMADol HCl 50 MG eCW1 ([facility]) tramadol hydrochloride 50 MG Oral Tablet traMADol HCl 50 MG traMADol HCl 50 MG 03/05/2021 12:00:00 AM EDT 1.0 {tablet_as_needed} suspended traMADol HCl 50 MG eCW1 ([facility]) tramadol hydrochloride 50 MG Oral Tablet traMADol HCl 50 MG traMADol HCl 50 MG 03/05/2021 12:00:00 AM EDT 1.0 {tablet_as_needed} active traMADol HCl 50 MG eCW1 ([facility]) tramadol hydrochloride 50 MG Oral Tablet traMADol HCl 50 MG traMADol HCl 50 MG 03/05/2021 12:00:00 AM EDT 1.0 {tablet_as_needed} suspended traMADol HCl 50 MG eCW1 ([facility]) tramadol hydrochloride 50 MG Oral Tablet traMADol HCl 50 MG traMADol HCl 50 MG 03/05/2021 12:00:00 AM EDT 1.0 {tablet_as_needed} active traMADol HCl 50 MG eCW1 ([facility]) tramadol hydrochloride 50 MG Oral Tablet traMADol HCl 50 MG traMADol HCl 50 MG 03/05/2021 12:00:00 AM EDT 1.0 {tablet_as_needed} active traMADol HCl 50 MG eCW1 ([facility]) tramadol hydrochloride 50 MG Oral Tablet traMADol HCl 50 MG traMADol HCl 50 MG 03/05/2021 12:00:00 AM EDT 1.0 {tablet_as_needed} suspended traMADol HCl 50 MG eCW1 ([facility]) 168 HR Buprenorphine 0.005 MG/HR Transdermal Patch [Bu Trans] Butrans 5 MCG/HR Butrans 5 MCG/HR 03/03/2021 12:00:00 AM EDT 1.0 {patch_to_skin} active Butrans 5 MCG/HR eCW1 ([facility]) 168 HR Buprenorphine 0.005 MG/HR Transdermal Patch [Bu Trans] Butrans 5 MCG/HR Butrans 5 MCG/HR 03/03/2021 12:00:00 AM EDT 1.0 {patch_to_skin} suspended Butrans 5 MCG/HR eCW1 ([facility]) 168 HR Buprenorphine 0.005 MG/HR Transdermal Patch [Bu Trans] Butrans 5 MCG/HR Butrans 5 MCG/HR 03/03/2021 12:00:00 AM EDT 1.0 {patch_to_skin} active Butrans 5 MCG/HR eCW1 ([facility]) 168 HR Buprenorphine 0.005 MG/HR Transdermal Patch [Bu Trans] Butrans 5 MCG/HR Butrans 5 MCG/HR 03/03/2021 12:00:00 AM EDT 1.0 {patch_to_skin} suspended Butrans 5 MCG/HR eCW1 ([facility]) 168 HR Buprenorphine 0.005 MG/HR Transdermal Patch [Bu Trans] Butrans 5 MCG/HR Butrans 5 MCG/HR 03/03/2021 12:00:00 AM EDT 1.0 {patch_to_skin} suspended Butrans 5 MCG/HR eCW1 ([facility]) 168 HR Buprenorphine 0.005 MG/HR Transdermal Patch [Bu Trans] Butrans 5 MCG/HR Butrans 5 MCG/HR 03/03/2021 12:00:00 AM EDT 1.0 {patch_to_skin} suspended Butrans 5 MCG/HR eCW1 ([facility]) 168 HR Buprenorphine 0.005 MG/HR Transdermal Patch [Bu Trans] Butrans 5 MCG/HR Butrans 5 MCG/HR 03/03/2021 12:00:00 AM EDT 1.0 {patch_to_skin} active Butrans 5 MCG/HR eCW1 ([facility]) 168 HR Buprenorphine 0.005 MG/HR Transdermal Patch [Bu Trans] Butrans 5 MCG/HR Butrans 5 MCG/HR 03/03/2021 12:00:00 AM EDT 1.0 {patch_to_skin} suspended Butrans 5 MCG/HR eCW1 ([facility]) 168 HR Buprenorphine 0.005 MG/HR Transdermal Patch [Bu Trans] Butrans 5 MCG/HR Butrans 5 MCG/HR 03/03/2021 12:00:00 AM EDT 1.0 {patch_to_skin} active Butrans 5 MCG/HR eCW1 ([facility]) 168 HR Buprenorphine 0.005 MG/HR Transdermal Patch [Bu Trans] Butrans 5 MCG/HR Butrans 5 MCG/HR 03/03/2021 12:00:00 AM EDT 1.0 {patch_to_skin} suspended Butrans 5 MCG/HR eCW1 ([facility]) 168 HR Buprenorphine 0.005 MG/HR Transdermal Patch [Bu Trans] Butrans 5 MCG/HR Butrans 5 MCG/HR 03/03/2021 12:00:00 AM EDT 1.0 {patch_to_skin} active Butrans 5 MCG/HR eCW1 ([facility]) 168 HR Buprenorphine 0.005 MG/HR Transdermal Patch [Bu Trans] Butrans 5 MCG/HR Butrans 5 MCG/HR 03/03/2021 12:00:00 AM EDT 1.0 {patch_to_skin} active Butrans 5 MCG/HR eCW1 ([facility]) 168 HR Buprenorphine 0.005 MG/HR Transdermal Patch [Bu Trans] Butrans 5 MCG/HR Butrans 5 MCG/HR 03/03/2021 12:00:00 AM EDT 1.0 {patch_to_skin} active Butrans 5 MCG/HR eCW1 ([facility]) 168 HR Buprenorphine 0.005 MG/HR Transdermal Patch [Bu Trans] Butrans 5 MCG/HR Butrans 5 MCG/HR 03/03/2021 12:00:00 AM EDT 1.0 {patch_to_skin} suspended Butrans 5 MCG/HR eCW1 ([facility]) 168 HR Buprenorphine 0.005 MG/HR Transdermal Patch [Bu Trans] Butrans 5 MCG/HR Butrans 5 MCG/HR 03/03/2021 12:00:00 AM EDT 1.0 {patch_to_skin} suspended Butrans 5 MCG/HR eCW1 ([facility]) 168 HR Buprenorphine 0.005 MG/HR Transdermal Patch [Bu Trans] Butrans 5 MCG/HR Butrans 5 MCG/HR 03/03/2021 12:00:00 AM EDT 1.0 {patch_to_skin} suspended Butrans 5 MCG/HR eCW1 ([facility]) 168 HR Buprenorphine 0.005 MG/HR Transdermal Patch [Bu Trans] Butrans 5 MCG/HR Butrans 5 MCG/HR 03/03/2021 12:00:00 AM EDT 1.0 {patch_to_skin} active Butrans 5 MCG/HR eCW1 ([facility]) Triamcinolone Acetonide 0.25 MG/ML Topic al Cream Triamcinolone Acetonide 0.025 % Triamcinolone Acetonide 0.025 % 02/26/2021 12:00:00 AM EDT 1.0 {application} active Triamcinolone Aceton thomas 0.025 % eCW1 ([facility]) Triamcinolone Acetonide 0.25 MG/ML Topic al Cream Triamcinolone Acetonide 0.025 % Triamcinolone Acetonide 0.025 % 02/26/2021 12:00:00 AM EDT 1.0 {application} suspended Triamcinolone Aceton thomas 0.025 % eCW1 ([facility]) Belbuca 75 MCG Belbuca 75 MCG 02/26/2021 12:00:00 AM EDT suspended Belbuca 75 MCG eCW1 ([facility]) Triamcinolone Acetonide 0.25 MG/ML Topic al Cream Triamcinolone Acetonide 0.025 % Triamcinolone Acetonide 0.025 % 02/26/2021 12:00:00 AM EDT 1.0 {application} active Triamcinolone Aceton thomas 0.025 % eCW1 ([facility]) Belbuca 75 MCG Belbuca 75 MCG 02/26/2021 12:00:00 AM EDT active Belbuca 75 MCG eCW1 ([facility]) Belbuca 75 MCG Belbuca 75 MCG 02/26/2021 12:00:00 AM EDT active Belbuca 75 MCG eCW1 ([facility]) Belbuca 75 MCG Belbuca 75 MCG 02/26/2021 12:00:00 AM EDT suspended Belbuca 75 MCG eCW1 ([facility]) Belbuca 75 MCG Bel[place]uca 75 MCG 02/26/2021 12:00:00 AM EDT suspended Belbuca 75 MCG eCW1 ([facility]) Belbuca 75 MCG Bel[place]uca 75 MCG 02/26/2021 12:00:00 AM EDT suspended Belbuca 75 MCG eCW1 ([facility]) Belbuca 75 MCG Bel[place]uca 75 MCG 02/26/2021 12:00:00 AM EDT suspended Belbuca 75 MCG eCW1 ([facility]) Belbuca 75 MCG Bel[place]uca 75 MCG 02/26/2021 12:00:00 AM EDT suspended Belbuca 75 MCG eCW1 ([facility]) Belbuca 75 MCG Bel[place]uca 75 MCG 02/26/2021 12:00:00 AM EDT suspended Bel[place]uca 75 MCG eCW1 ([facility]) Triamcinolone Acetonide 0.25 MG/ML Topic al Cream Triamcinolone Acetonide 0.025 % Triamcinolone Acetonide 0.025 % 02/26/2021 12:00:00 AM EDT 1.0 {application} suspended Triamcinolone Aceton thomas 0.025 % eCW1 ([facility]) Belbuca 75 MCG Belbuca 75 MCG 02/26/2021 12:00:00 AM EDT active Belbuca 75 MCG eCW1 ([facility]) Belbuca 75 MCG Bel[place]uca 75 MCG 02/26/2021 12:00:00 AM EDT active Belbuca 75 MCG eCW1 ([facility]) Triamcinolone Acetonide 0.25 MG/ML Topic al Cream Triamcinolone Acetonide 0.025 % Triamcinolone Acetonide 0.025 % 02/26/2021 12:00:00 AM EDT 1.0 {application} suspended Triamcinolone Aceton thomas 0.025 % eCW1 ([facility]) Belbuca 75 MCG Bel[place]uca 75 MCG 02/26/2021 12:00:00 AM EDT active Belbuca 75 MCG eCW1 ([facility]) Triamcinolone Acetonide 0.25 MG/ML Topic al Cream Triamcinolone Acetonide 0.025 % Triamcinolone Acetonide 0.025 % 02/26/2021 12:00:00 AM EDT 1.0 {application} suspended Triamcinolone Aceton thomas 0.025 % eCW1 ([facility]) Triamcinolone Acetonide 0.25 MG/ML Topic al Cream Triamcinolone Acetonide 0.025 % Triamcinolone Acetonide 0.025 % 02/26/2021 12:00:00 AM EDT 1.0 {application} active Triamcinolone Aceton thomas 0.025 % eCW1 ([facility]) Belbuca 75 MCG Bel[place]uca 75 MCG 02/26/2021 12:00:00 AM EDT suspended Belbuca 75 MCG eCW1 ([facility]) Triamcinolone Acetonide 0.25 MG/ML Topic al Cream Triamcinolone Acetonide 0.025 % Triamcinolone Acetonide 0.025 % 02/26/2021 12:00:00 AM EDT 1.0 {application} active Triamcinolone Aceton thomas 0.025 % eCW1 ([facility]) Triamcinolone Acetonide 0.25 MG/ML Topic al Cream Triamcinolone Acetonide 0.025 % Triamcinolone Acetonide 0.025 % 02/26/2021 12:00:00 AM EDT 1.0 {application} active Triamcinolone Aceton thomas 0.025 % eCW1 ([facility]) Belbuca 75 MCG Bel[place]uca 75 MCG 02/26/2021 12:00:00 AM EDT active Belbuca 75 MCG eCW1 ([facility]) Belbuca 75 MCG Bel[place]uca 75 MCG 02/26/2021 12:00:00 AM EDT active Belbuca 75 MCG eCW1 ([facility]) Belbuca 75 MCG Bel[place]uca 75 MCG 02/26/2021 12:00:00 AM EDT active Belbuca 75 MCG eCW1 ([facility]) Belbuca 75 MCG Bel[place]uca 75 MCG 02/26/2021 12:00:00 AM EDT active Belbuca 75 MCG eCW1 ([facility]) Triamcinolone Acetonide 0.25 MG/ML Topic al Cream Triamcinolone Acetonide 0.025 % Triamcinolone Acetonide 0.025 % 02/26/2021 12:00:00 AM EDT 1.0 {application} suspended Triamcinolone Aceton thomas 0.025 % eCW1 ([facility]) Triamcinolone Acetonide 0.25 MG/ML Topic al Cream Triamcinolone Acetonide 0.025 % Triamcinolone Acetonide 0.025 % 02/26/2021 12:00:00 AM EDT 1.0 {application} active Triamcinolone Aceton thomas 0.025 % eCW1 ([facility]) Triamcinolone Acetonide 0.25 MG/ML Topic al Cream Triamcinolone Acetonide 0.025 % Triamcinolone Acetonide 0.025 % 02/26/2021 12:00:00 AM EDT 1.0 {application} active Triamcinolone Aceton thomas 0.025 % eCW1 ([facility]) Triamcinolone Acetonide 0.25 MG/ML Topic al Cream Triamcinolone Acetonide 0.025 % Triamcinolone Acetonide 0.025 % 02/26/2021 12:00:00 AM EDT 1.0 {application} active Triamcinolone Aceton thomas 0.025 % eCW1 ([facility]) Triamcinolone Acetonide 0.25 MG/ML Topic al Cream Triamcinolone Acetonide 0.025 % Triamcinolone Acetonide 0.025 % 02/26/2021 12:00:00 AM EDT 1.0 {application} active Triamcinolone Aceton thomas 0.025 % eCW1 ([facility]) Triamcinolone Acetonide 0.25 MG/ML Topic al Cream Triamcinolone Acetonide 0.025 % Triamcinolone Acetonide 0.025 % 02/26/2021 12:00:00 AM EDT 1.0 {application} active Triamcinolone Aceton thomas 0.025 % eCW1 ([facility]) Belbuca 75 MCG Bel[place]uca 75 MCG 02/26/2021 12:00:00 AM EDT suspended Belbuca 75 MCG eCW1 ([facility]) Triamcinolone Acetonide 0.25 MG/ML Topic al Cream Triamcinolone Acetonide 0.025 % Triamcinolone Acetonide 0.025 % 02/26/2021 12:00:00 AM EDT 1.0 {application} active Triamcinolone Aceton thomas 0.025 % eCW1 ([facility]) Triamcinolone Acetonide 0.25 MG/ML Topic al Cream Triamcinolone Acetonide 0.025 % Triamcinolone Acetonide 0.025 % 02/26/2021 12:00:00 AM EDT 1.0 {application} suspended Triamcinolone Aceton thomas 0.025 % eCW1 ([facility]) 0.025 % 02/26/2021 12:00:00 AM EDT cream 15 APPLY TO FINGERS TWO TIMES A DAY APPLY TO FINGERS TWO TIMES A DAY SOLD: 02/27/2021 [facility] Triamcinolone Acetonide 0.25 MG/ML Topic al Cream Triamcinolone Acetonide 0.025 % Triamcinolone Acetonide 0.025 % 02/26/2021 12:00:00 AM EDT 1.0 {application} active Triamcinolone Aceton thomas 0.025 % eCW1 ([facility]) 500 mg 02/21/2021 12:00:00 AM EDT capsule 30 TAKE ONE CAPSULE BY MOUTH THREE TIMES A DAY TAKE ONE CAPSULE BY MOUTH THREE TIMES A DAY SOLD: 02/24/2021 [facility] Amphetamine aspartate 5 MG / [...] TABLET BY MOUTH TWICE A DAY SOLD: 04/17/2021 [facility] 200 mg 02/17/2021 12:00:00 AM [...] EDT a ctive Adderall 20 MG eCW1 ([facility]) Amphetamine aspartate 5 MG / Amphetamine Sulfate 5 MG / Dextroamphetamine saccharate 5 MG / Dextroamphetamine Sulfate 5 MG Oral Tablet [Adderall] Adderall 20 MG Adderall 20 MG 02/14/2021 12:00:00 AM EDT a ctive Adderall 20 MG eCW1 ([facility]) Amphetamine aspartate 5 MG / Amphetamine Sulfate 5 MG / Dextroamphetamine saccharate 5 MG / Dextroamphetamine Sulfate 5 MG Oral Tablet [Adderall] Adderall 20 MG Adderall 20 MG 02/14/2021 12:00:00 AM EDT a ctive Adderall 20 MG eCW1 ([facility]) Amphetamine aspartate 5 MG / Amphetamine Sulfate 5 MG / Dextroamphetamine saccharate 5 MG / Dextroamphetamine Sulfate 5 MG Oral Tablet [Adderall] Adderall 20 MG Adderall 20 MG 02/14/2021 12:00:00 AM EDT a ctive Adderall 20 MG eCW1 ([facility]) Amphetamine aspartate 5 MG / Amphetamine Sulfate 5 MG / Dextroamphetamine saccharate 5 MG / Dextroamphetamine Sulfate 5 MG Oral Tablet [Adderall] Adderall 20 MG Adderall 20 MG 02/14/2021 12:00:00 AM EDT a ctive Adderall 20 MG eCW1 ([facility]) Amphetamine aspartate 5 MG / Amphetamine Sulfate 5 MG / Dextroamphetamine saccharate 5 MG / Dextroamphetamine Sulfate 5 MG Oral Tablet [Adderall] Adderall 20 MG Adderall 20 MG 02/14/2021 12:00:00 AM EDT a ctive Adderall 20 MG eCW1 ([facility]) Amphetamine aspartate 5 MG / Amphetamine Sulfate 5 MG / Dextroamphetamine saccharate 5 MG / Dextroamphetamine Sulfate 5 MG Oral Tablet [Adderall] Adderall 20 MG Adderall 20 MG 02/14/2021 12:00:00 AM EDT a ctive Adderall 20 MG eCW1 ([facility]) Amphetamine aspartate 5 MG / Amphetamine Sulfate 5 MG / Dextroamphetamine saccharate 5 MG / Dextroamphetamine Sulfate 5 MG Oral Tablet [Adderall] Adderall 20 MG Adderall 20 MG 02/14/2021 12:00:00 AM EDT a ctive Adderall 20 MG eCW1 ([facility]) Amphetamine aspartate 5 MG / Amphetamine Sulfate 5 MG / Dextroamphetamine saccharate 5 MG / Dextroamphetamine Sulfate 5 MG Oral Tablet [Adderall] Adderall 20 MG Adderall 20 MG 02/14/2021 12:00:00 AM EDT a ctive Adderall 20 MG eCW1 ([facility]) Amphetamine aspartate 5 MG / Amphetamine Sulfate 5 MG / Dextroamphetamine saccharate 5 MG / Dextroamphetamine Sulfate 5 MG Oral Tablet [Adderall] Adderall 20 MG Adderall 20 MG 02/14/2021 12:00:00 AM EDT a ctive Adderall 20 MG eCW1 ([facility]) 600 mg 01/18/2021 12:00:00 AM EDT tablet 120 TAKE ONE TABLET BY MOUTH FOUR TIMES A DAY TAKE ONE TABLET BY MOUTH FOUR TIMES A DAY SOLD: 02/18/2021 [facility] 600 mg 01/18/2021 12:00:00 AM EDT tablet 120 TAKE ONE TABLET BY MOUTH FOUR TIMES A DAY TAKE ONE TABLET BY MOUTH FOUR TIMES A DAY SOLD: 01/20/2021 [facility] 600 mg 01/18/2021 12:00:00 AM EDT tablet 120 TAKE ONE TABLET BY MOUTH FOUR TIMES A DAY TAKE ONE TABLET BY MOUTH FOUR TIMES A DAY SOLD: 04/17/2021 [facility] 20 mg 01/18/2021 12:00:00 AM EDT tablet 60 TAKE ONE TABLET BY MOUTH TWICE A DAY * MAXIMUM DAILY DOSE = 2 TAKE ONE TABLET BY MOUTH TWICE A DAY * M SEBASTIAN DAILY DOSE = 2 SOLD: 01/20/2021 [facility] [...] EDT a ctive Adderall 20 MG eCW1 ([facility]) Amphetamine aspartate 5 MG / Amphetamine Sulfate 5 MG / Dextroamphetamine saccharate 5 MG / Dextroamphetamine Sulfate 5 MG Oral Tablet [Adderall] Adderall 20 MG Adderall 20 MG 01/17/2021 12:00:00 AM EDT a ctive Adderall 20 MG eCW1 ([facility]) 60 mg 01/01/2021 12:00:00 AM EDT [...] DAILY DOSE = 2 CAPSULES SOLD: 01/02/2021 [facility] pregabalin 50 MG Oral Capsule [Lyrica] Lyrica 50 MG Lyrica 5 0 MG 12/26/2020 12:00:00 AM EDT 1.0 {capsule} suspended Lyrica 50 MG eCW1 ([facility]) pregabalin 50 MG Oral Capsule [Lyrica] Lyrica 50 MG Lyrica 5 0 MG 12/26/2020 12:00:00 AM EDT 1.0 {capsule} suspended Lyrica 50 MG eCW1 ([facility]) Cyclobenzaprine hydrochloride 5 MG Oral Tablet Cyclobe nzaprine HCl 5 MG Cyclobenzaprine HCl 5 MG 12/26/2020 12:00:00 AM EDT 1.0 {tablet_at_bedtime_as_needed} suspended Cyclobenzaprine HCl 5 MG eCW1 ([facility]) pregabalin 50 MG Oral Capsule [Lyrica] Lyrica 50 MG Lyrica 5 0 MG 12/26/2020 12:00:00 AM EDT 1.0 {capsule} suspended Lyrica 50 MG eCW1 ([facility]) Cyclobenzaprine hydrochloride 5 MG Oral Tablet Cyclobe nzaprine HCl 5 MG Cyclobenzaprine HCl 5 MG 12/26/2020 12:00:00 AM EDT 1.0 {tablet_at_bedtime_as_needed} active Cy clobenzaprine HCl 5 MG eCW1 ([facility]) pregabalin 50 MG Oral Capsule [Lyrica] Lyrica 50 MG Lyrica 5 0 MG 12/26/2020 12:00:00 AM EDT 1.0 {capsule} suspended Lyrica 50 MG eCW1 ([facility]) Cyclobenzaprine hydrochloride 5 MG Oral Tablet Cyclobe nzaprine HCl 5 MG Cyclobenzaprine HCl 5 MG 12/26/2020 12:00:00 AM EDT 1.0 {tablet_at_bedtime_as_needed} suspended Cyclobenzaprine HCl 5 MG eCW1 ([facility]) pregabalin 50 MG Oral Capsule [Lyrica] Lyrica 50 MG Lyrica 5 0 MG 12/26/2020 12:00:00 AM EDT 1.0 {capsule} suspended Lyrica 50 MG eCW1 ([facility]) Cyclobenzaprine hydrochloride 5 MG Oral Tablet Cyclobe nzaprine HCl 5 MG Cyclobenzaprine HCl 5 MG 12/26/2020 12:00:00 AM EDT 1.0 {tablet_at_bedtime_as_needed} suspended Cyclobenzaprine HCl 5 MG eCW1 ([facility]) pregabalin 50 MG Oral Capsule [Lyrica] Lyrica 50 MG Lyrica 5 0 MG 12/26/2020 12:00:00 AM EDT 1.0 {capsule} suspended Lyrica 50 MG eCW1 ([facility]) Cyclobenzaprine hydrochloride 5 MG Oral Tablet Cyclobe nzaprine HCl 5 MG Cyclobenzaprine HCl 5 MG 12/26/2020 12:00:00 AM EDT 1.0 {tablet_at_bedtime_as_needed} active Cy clobenzaprine HCl 5 MG eCW1 ([facility]) pregabalin 50 MG Oral Capsule [Lyrica] Lyrica 50 MG Lyrica 5 0 MG 12/26/2020 12:00:00 AM EDT 1.0 {capsule} suspended Lyrica 50 MG eCW1 ([facility]) pregabalin 50 MG Oral Capsule [Lyrica] Lyrica 50 MG Lyrica 5 0 MG 12/26/2020 12:00:00 AM EDT 1.0 {capsule} active L yrica 50 MG eCW1 ([facility]) Cyclobenzaprine hydrochloride 5 MG Oral Tablet Cyclobe nzaprine HCl 5 MG Cyclobenzaprine HCl 5 MG 12/26/2020 12:00:00 AM EDT 1.0 {tablet_at_bedtime_as_needed} active Cy clobenzaprine HCl 5 MG eCW1 ([facility]) Cyclobenzaprine hydrochloride 5 MG Oral Tablet Cyclobe nzaprine HCl 5 MG Cyclobenzaprine HCl 5 MG 12/26/2020 12:00:00 AM EDT 1.0 {tablet_at_bedtime_as_needed} suspended Cyclobenzaprine HCl 5 MG eCW1 ([facility]) Cyclobenzaprine hydrochloride 5 MG Oral Tablet Cyclobe nzaprine HCl 5 MG Cyclobenzaprine HCl 5 MG 12/26/2020 12:00:00 AM EDT 1.0 {tablet_at_bedtime_as_needed} suspended Cyclobenzaprine HCl 5 MG eCW1 ([facility]) Cyclobenzaprine hydrochloride 5 MG Oral Tablet Cyclobe nzaprine HCl 5 MG Cyclobenzaprine HCl 5 MG 12/26/2020 12:00:00 AM EDT 1.0 {tablet_at_bedtime_as_needed} suspended Cyclobenzaprine HCl 5 MG eCW1 ([facility]) pregabalin 50 MG Oral Capsule [Lyrica] Lyrica 50 MG Lyrica 5 0 MG 12/26/2020 12:00:00 AM EDT 1.0 {capsule} suspended Lyrica 50 MG eCW1 ([facility]) Cyclobenzaprine hydrochloride 5 MG Oral Tablet Cyclobe nzaprine HCl 5 MG Cyclobenzaprine HCl 5 MG 12/26/2020 12:00:00 AM EDT 1.0 {tablet_at_bedtime_as_needed} suspended Cyclobenzaprine HCl 5 MG eCW1 ([facility]) pregabalin 50 MG Oral Capsule [Lyrica] Lyrica 50 MG Lyrica 5 0 MG 12/26/2020 12:00:00 AM EDT 1.0 {capsule} suspended Lyrica 50 MG eCW1 ([facility]) Cyclobenzaprine hydrochloride 5 MG Oral Tablet Cyclobe nzaprine HCl 5 MG Cyclobenzaprine HCl 5 MG 12/26/2020 12:00:00 AM EDT 1.0 {tablet_at_bedtime_as_needed} active Cy clobenzaprine HCl 5 MG eCW1 ([facility]) Cyclobenzaprine hydrochloride 5 MG Oral Tablet Cyclobe nzaprine HCl 5 MG Cyclobenzaprine HCl 5 MG 12/26/2020 12:00:00 AM EDT 1.0 {tablet_at_bedtime_as_needed} suspended Cyclobenzaprine HCl 5 MG eCW1 ([facility]) Cyclobenzaprine hydrochloride 5 MG Oral Tablet Cyclobe nzaprine HCl 5 MG Cyclobenzaprine HCl 5 MG 12/26/2020 12:00:00 AM EDT 1.0 {tablet_at_bedtime_as_needed} active Cy clobenzaprine HCl 5 MG eCW1 ([facility]) pregabalin 50 MG Oral Capsule [Lyrica] Lyrica 50 MG Lyrica 5 0 MG 12/26/2020 12:00:00 AM EDT 1.0 {capsule} suspended Lyrica 50 MG eCW1 ([facility]) pregabalin 50 MG Oral Capsule [Lyrica] Lyrica 50 MG Lyrica 5 0 MG 12/26/2020 12:00:00 AM EDT 1.0 {capsule} suspended Lyrica 50 MG eCW1 ([facility]) Cyclobenzaprine hydrochloride 5 MG Oral Tablet Cyclobe nzaprine HCl 5 MG Cyclobenzaprine HCl 5 MG 12/26/2020 12:00:00 AM EDT 1.0 {tablet_at_bedtime_as_needed} active Cy clobenzaprine HCl 5 MG eCW1 ([facility]) pregabalin 50 MG Oral Capsule [Lyrica] Lyrica 50 MG Lyrica 5 0 MG 12/26/2020 12:00:00 AM EDT 1.0 {capsule} suspended Lyrica 50 MG eCW1 ([facility]) pregabalin 50 MG Oral Capsule [Lyrica] Lyrica 50 MG Lyrica 5 0 MG 12/26/2020 12:00:00 AM EDT 1.0 {capsule} suspended Lyrica 50 MG eCW1 ([facility]) Cyclobenzaprine hydrochloride 5 MG Oral Tablet Cyclobe nzaprine HCl 5 MG Cyclobenzaprine HCl 5 MG 12/26/2020 12:00:00 AM EDT 1.0 {tablet_at_bedtime_as_needed} suspended Cyclobenzaprine HCl 5 MG eCW1 ([facility]) Cyclobenzaprine hydrochloride 5 MG Oral Tablet Cyclobe nzaprine HCl 5 MG Cyclobenzaprine HCl 5 MG 12/26/2020 12:00:00 AM EDT 1.0 {tablet_at_bedtime_as_needed} active Cy clobenzaprine HCl 5 MG eCW1 ([facility]) Cyclobenzaprine hydrochloride 5 MG Oral Tablet Cyclobe nzaprine HCl 5 MG Cyclobenzaprine HCl 5 MG 12/26/2020 12:00:00 AM EDT 1.0 {tablet_at_bedtime_as_needed} suspended Cyclobenzaprine HCl 5 MG eCW1 ([facility]) pregabalin 50 MG Oral Capsule [Lyrica] Lyrica 50 MG Lyrica 5 0 MG 12/26/2020 12:00:00 AM EDT 1.0 {capsule} active L yrica 50 MG eCW1 ([facility]) pregabalin 50 MG Oral Capsule [Lyrica] Lyrica 50 MG Lyrica 5 0 MG 12/26/2020 12:00:00 AM EDT 1.0 {capsule} active L yrica 50 MG eCW1 ([facility]) pregabalin 50 MG Oral Capsule [Lyrica] Lyrica 50 MG Lyrica 5 0 MG 12/26/2020 12:00:00 AM EDT 1.0 {capsule} active L yrica 50 MG eCW1 ([facility]) pregabalin 50 MG Oral Capsule [Lyrica] Lyrica 50 MG Lyrica 5 0 MG 12/26/2020 12:00:00 AM EDT 1.0 {capsule} active L yrica 50 MG eCW1 ([facility]) Cyclobenzaprine hydrochloride 5 MG Oral Tablet Cyclobe nzaprine HCl 5 MG Cyclobenzaprine HCl 5 MG 12/26/2020 12:00:00 AM EDT 1.0 {tablet_at_bedtime_as_needed} active Cy clobenzaprine HCl 5 MG eCW1 ([facility]) Cyclobenzaprine hydrochloride 5 MG Oral Tablet Cyclobe nzaprine HCl 5 MG Cyclobenzaprine HCl 5 MG 12/26/2020 12:00:00 AM EDT 1.0 {tablet_at_bedtime_as_needed} suspended Cyclobenzaprine HCl 5 MG eCW1 ([facility]) pregabalin 50 MG Oral Capsule [Lyrica] Lyrica 50 MG Lyrica 5 0 MG 12/26/2020 12:00:00 AM EDT 1.0 {capsule} suspended Lyrica 50 MG eCW1 ([facility]) pregabalin 50 MG Oral Capsule [Lyrica] Lyrica 50 MG Lyrica 5 0 MG 12/26/2020 12:00:00 AM EDT 1.0 {capsule} active L yrica 50 MG eCW1 ([facility]) Cyclobenzaprine hydrochloride 5 MG Oral Tablet [...] 1.0 {capsule} suspended Lyrica 50 MG eCW1 ([facility]) pregabalin 50 MG Oral Capsule [Lyrica] Lyrica 50 MG Lyrica 5 0 MG 12/26/2020 12:00:00 AM EDT 1.0 {capsule} suspended Lyrica 50 MG eCW1 ([facility]) Cyclobenzaprine hydrochloride 5 MG Oral Tablet Cyclobe nzaprine HCl 5 MG Cyclobenzaprine HCl 5 MG 12/26/2020 12:00:00 AM EDT 1.0 {tablet_at_bedtime_as_needed} active Cy clobenzaprine HCl 5 MG eCW1 ([facility]) Cyclobenzaprine hydrochloride 5 MG Oral Tablet Cyclobe nzaprine HCl 5 MG Cyclobenzaprine HCl 5 MG 12/26/2020 12:00:00 AM EDT 1.0 {tablet_at_bedtime_as_needed} suspended Cyclobenzaprine HCl 5 MG eCW1 ([facility]) pregabalin 50 MG Oral Capsule [Lyrica] Lyrica 50 MG Lyrica 5 0 MG 12/26/2020 12:00:00 AM EDT 1.0 {capsule} suspended Lyrica 50 MG eCW1 ([facility]) pregabalin 50 MG Oral Capsule [Lyrica] Lyrica 50 MG Lyrica 5 0 MG 12/26/2020 12:00:00 AM EDT 1.0 {capsule} active L yrica 50 MG eCW1 ([facility]) pregabalin 50 MG Oral Capsule [Lyrica] Lyrica 50 MG Lyrica 5 0 MG 12/26/2020 12:00:00 AM EDT 1.0 {capsule} active L yrica 50 MG eCW1 ([facility]) Cyclobenzaprine hydrochloride 5 MG Oral Tablet Cyclobe nzaprine HCl 5 MG Cyclobenzaprine HCl 5 MG 12/26/2020 12:00:00 AM EDT 1.0 {tablet_at_bedtime_as_needed} suspended Cyclobenzaprine HCl 5 MG eCW1 ([facility]) pregabalin 50 MG Oral Capsule [Lyrica] Lyrica 50 MG Lyrica 5 0 MG 12/26/2020 12:00:00 AM EDT 1.0 {capsule} active L yrica 50 MG eCW1 ([facility]) Cyclobenzaprine hydrochloride 5 MG Oral Tablet Cyclobe nzaprine HCl 5 MG Cyclobenzaprine HCl 5 MG 12/26/2020 12:00:00 AM EDT 1.0 {tablet_at_bedtime_as_needed} suspended Cyclobenzaprine HCl 5 MG eCW1 ([facility]) Cyclobenzaprine hydrochloride 5 MG Oral Tablet Cyclobe nzaprine HCl 5 MG Cyclobenzaprine HCl 5 MG 12/26/2020 12:00:00 AM EDT 1.0 {tablet_at_bedtime_as_needed} suspended Cyclobenzaprine HCl 5 MG eCW1 ([facility]) Cyclobenzaprine hydrochloride 5 MG Oral Tablet Cyclobe nzaprine HCl 5 MG Cyclobenzaprine HCl 5 MG 12/26/2020 12:00:00 AM EDT 1.0 {tablet_at_bedtime_as_needed} suspended Cyclobenzaprine HCl 5 MG eCW1 ([facility]) pregabalin 50 MG Oral Capsule [Lyrica] Lyrica 50 MG Lyrica 5 0 MG 12/26/2020 12:00:00 AM EDT 1.0 {capsule} active L yrica 50 MG eCW1 ([facility]) Cyclobenzaprine hydrochloride 5 MG Oral Tablet Cyclobe nzaprine HCl 5 MG Cyclobenzaprine HCl 5 MG 12/26/2020 12:00:00 AM EDT 1.0 {tablet_at_bedtime_as_needed} active Cy clobenzaprine HCl 5 MG eCW1 ([facility]) pregabalin 50 MG Oral Capsule [Lyrica] Lyrica 50 MG Lyrica 5 0 MG 12/26/2020 12:00:00 AM EDT 1.0 {capsule} suspended Lyrica 50 MG eCW1 ([facility]) Cyclobenzaprine hydrochloride 5 MG Oral Tablet Cyclobe nzaprine HCl 5 MG Cyclobenzaprine HCl 5 MG 12/26/2020 12:00:00 AM EDT 1.0 {tablet_at_bedtime_as_needed} suspended Cyclobenzaprine HCl 5 MG eCW1 ([facility]) Cyclobenzaprine hydrochloride 5 MG Oral Tablet Cyclobe nzaprine HCl 5 MG Cyclobenzaprine HCl 5 MG 12/26/2020 12:00:00 AM EDT 1.0 {tablet_at_bedtime_as_needed} suspended Cyclobenzaprine HCl 5 MG eCW1 ([facility]) 200 mg 12/24/2020 12:00:00 AM EDT [...] EDT a ctive Adderall 20 MG eCW1 ([facility]) Amphetamine aspartate 5 MG / Amphetamine Sulfate 5 MG / Dextroamphetamine saccharate 5 MG / Dextroamphetamine Sulfate 5 MG Oral Tablet [Adderall] Adderall 20 MG Adderall 20 MG 12/19/2020 12:00:00 AM EDT a ctive Adderall 20 MG eCW1 ([facility]) Amphetamine aspartate 5 MG / Amphetamine Sulfate 5 MG / Dextroamphetamine saccharate 5 MG / Dextroamphetamine Sulfate 5 MG Oral Tablet [Adderall] Adderall 20 MG Adderall 20 MG 12/19/2020 12:00:00 AM EDT a ctive Adderall 20 MG eCW1 ([facility]) Amphetamine aspartate 5 MG / Amphetamine Sulfate 5 MG / Dextroamphetamine saccharate 5 MG / Dextroamphetamine Sulfate 5 MG Oral Tablet [Adderall] Adderall 20 MG Adderall 20 MG 12/19/2020 12:00:00 AM EDT a ctive Adderall 20 MG eCW1 ([facility]) Amphetamine aspartate 5 MG / Amphetamine Sulfate 5 MG / Dextroamphetamine saccharate 5 MG / Dextroamphetamine Sulfate 5 MG Oral Tablet [Adderall] Adderall 20 MG Adderall 20 MG 12/19/2020 12:00:00 AM EDT a ctive Adderall 20 MG eCW1 ([facility]) Amphetamine aspartate 5 MG / Amphetamine Sulfate 5 MG / Dextroamphetamine saccharate 5 MG / Dextroamphetamine Sulfate 5 MG Oral Tablet [Adderall] Adderall 20 MG Adderall 20 MG 12/19/2020 12:00:00 AM EDT a ctive Adderall 20 MG eCW1 ([facility]) Amphetamine aspartate 5 MG / Amphetamine Sulfate 5 MG / Dextroamphetamine saccharate 5 MG / Dextroamphetamine Sulfate 5 MG Oral Tablet [Adderall] Adderall 20 MG Adderall 20 MG 12/19/2020 12:00:00 AM EDT a ctive Adderall 20 MG eCW1 ([facility]) Amphetamine aspartate 5 MG / Amphetamine Sulfate 5 MG / Dextroamphetamine saccharate 5 MG / Dextroamphetamine Sulfate 5 MG Oral Tablet [Adderall] Adderall 20 MG Adderall 20 MG 12/19/2020 12:00:00 AM EDT a ctive Adderall 20 MG eCW1 ([facility]) 500 mg 12/16/2020 12:00:00 AM EDT [...] MOUTH TWO TIMES A DAY SOLD: 02/18/2021 [facility] 60 ACTUAT Fluticasone propionate 0.113 [...] RespiClick 113/14 113-14 MCG/ACT AirDu[employer] RespiClick 11 3/14 113-14 MCG/ACT 12/06/2020 12:00:00 AM EDT 1.0 {puff} active AirDuo RespiClick 113/14 113-14 MCG/ACT eCW1 ([facility]) [employer] RespiClick 113/14 113-14 MCG/ACT [employer] RespiClick 11 08/25 113-14 MCG/ACT 12/06/2020 12:00:00 AM EDT 1.0 {puff} active AirDuo RespiClick 113/14 113-14 MCG/ACT eCW1 ([facility]) [employer] RespiClick 113/14 113-14 MCG/ACT [employer]piClick 11 08/25 113-14 MCG/ACT 12/06/2020 12:00:00 AM EDT 1.0 {puff} active AirDuo RespiClick 113/14 113-14 MCG/ACT eCW1 ([facility]) [employer] RespiClick 113/14 113-14 MCG/ACT [employer]piClick 11 14 113-14 MCG/ACT 12/06/2020 12:00:00 AM EDT 1.0 {puff} active AirDuo RespiClick 113/14 113-14 MCG/ACT eCW1 ([facility]) [employer] RespiClick 113/14 113-14 MCG/ACT [employer] [facility]Click 11 14 113-14 MCG/ACT 12/06/2020 12:00:00 AM EDT 1.0 {puff} active AirDuo RespiClick 113/14 113-14 MCG/ACT eCW1 ([facility]) 60 mg 12/03/2020 12:00:00 AM EDT [...] activ e Advair Diskus 250-50 MCG/DOSE eCW1 ([facility]) duloxetine 60 MG Delayed Release Oral Capsule [Cymbalt a] Cymbalta 60 MG Cymbalta 60 MG 12/02/2020 12:00:00 AM EDT 1.0 {capsule} acti ve Cymbalta 60 MG eCW1 ([facility]) duloxetine 60 MG Delayed Release Oral Capsule [Cymbalt a] Cymbalta 60 MG Cymbalta 60 MG 12/02/2020 12:00:00 AM EDT 1.0 {capsule} acti ve Cymbalta 60 MG eCW1 ([facility]) 60 ACTUAT Fluticasone propionate 0.25 MG /ACTUAT / salmeterol 0.05 MG/ACTUAT Dry Powder Inhaler [Advair] Advair Diskus 250-50 MCG/DOSE Advair Diskus 250-50 MCG/DOSE 12/02/2020 12:00:00 AM EDT 1.0 {puff} activ e Advair Diskus 250-50 MCG/DOSE eCW1 ([facility]) duloxetine 60 MG Delayed Release Oral Capsule [Cymbalt a] Cymbalta 60 MG Cymbalta 60 MG 12/02/2020 12:00:00 AM EDT 1.0 {capsule} acti ve Cymbalta 60 MG eCW1 ([facility]) duloxetine 60 MG Delayed Release Oral Capsule [Cymbalt a] Cymbalta 60 MG Cymbalta 60 MG 12/02/2020 12:00:00 AM EDT 1.0 {capsule} acti ve Cymbalta 60 MG eCW1 ([facility]) duloxetine 60 MG Delayed Release Oral Capsule [Cymbalt a] Cymbalta 60 MG Cymbalta 60 MG 12/02/2020 12:00:00 AM EDT 1.0 {capsule} acti ve Cymbalta 60 MG eCW1 ([facility]) 60 ACTUAT Fluticasone propionate 0.25 MG /ACTUAT / salmeterol 0.05 MG/ACTUAT Dry Powder Inhaler [Advair] Advair Diskus 250-50 MCG/DOSE Advair Diskus 250-50 MCG/DOSE 12/02/2020 12:00:00 AM EDT 1.0 {puff} activ e Advair Diskus 250-50 MCG/DOSE eCW1 ([facility]) duloxetine 60 MG Delayed Release Oral Capsule [Cymbalt a] Cymbalta 60 MG Cymbalta 60 MG 12/02/2020 12:00:00 AM EDT 1.0 {capsule} acti ve Cymbalta 60 MG eCW1 ([facility]) 60 ACTUAT Fluticasone propionate 0.25 MG /ACTUAT / salmeterol 0.05 MG/ACTUAT Dry Powder Inhaler [Advair] Advair Diskus 250-50 MCG/DOSE Advair Diskus 250-50 MCG/DOSE 12/02/2020 12:00:00 AM EDT 1.0 {puff} activ e Advair Diskus 250-50 MCG/DOSE eCW1 ([facility]) duloxetine 60 MG Delayed Release Oral Capsule [Cymbalt a] Cymbalta 60 MG Cymbalta 60 MG 12/02/2020 12:00:00 AM EDT 1.0 {capsule} acti ve Cymbalta 60 MG eCW1 ([facility]) duloxetine 60 MG Delayed Release Oral Capsule [Cymbalt a] Cymbalta 60 MG Cymbalta 60 MG 12/02/2020 12:00:00 AM EDT 1.0 {capsule} acti ve Cymbalta 60 MG eCW1 ([facility]) duloxetine 60 MG Delayed Release Oral Capsule [Cymbalt a] Cymbalta 60 MG Cymbalta 60 MG 12/02/2020 12:00:00 AM EDT 1.0 {capsule} acti ve Cymbalta 60 MG eCW1 ([facility]) duloxetine 60 MG Delayed Release Oral Capsule [Cymbalt a] Cymbalta 60 MG Cymbalta 60 MG 12/02/2020 12:00:00 AM EDT 1.0 {capsule} acti ve Cymbalta 60 MG eCW1 ([facility]) 60 ACTUAT Fluticasone propionate 0.25 MG /ACTUAT / salmeterol 0.05 MG/ACTUAT Dry Powder Inhaler [Advair] Advair Diskus 250-50 MCG/DOSE Advair Diskus 250-50 MCG/DOSE 12/02/2020 12:00:00 AM EDT 1.0 {puff} activ e Advair Diskus 250-50 MCG/DOSE eCW1 ([facility]) duloxetine 60 MG Delayed Release Oral Capsule [Cymbalt a] Cymbalta 60 MG Cymbalta 60 MG 12/02/2020 12:00:00 AM EDT 1.0 {capsule} acti ve Cymbalta 60 MG eCW1 ([facility]) duloxetine 60 MG Delayed Release Oral Capsule [Cymbalt a] Cymbalta 60 MG Cymbalta 60 MG 12/02/2020 12:00:00 AM EDT 1.0 {capsule} acti ve Cymbalta 60 MG eCW1 ([facility]) duloxetine 60 MG Delayed Release Oral Capsule [Cymbalt a] Cymbalta 60 MG Cymbalta 60 MG 12/02/2020 12:00:00 AM EDT 1.0 {capsule} acti ve Cymbalta 60 MG eCW1 ([facility]) duloxetine 60 MG Delayed Release Oral Capsule [Cymbalt a] Cymbalta 60 MG Cymbalta 60 MG 12/02/2020 12:00:00 AM EDT 1.0 {capsule} acti ve Cymbalta 60 MG eCW1 ([facility]) duloxetine 60 MG Delayed Release Oral Capsule [Cymbalt a] Cymbalta 60 MG Cymbalta 60 MG 12/02/2020 12:00:00 AM EDT 1.0 {capsule} acti ve Cymbalta 60 MG eCW1 ([facility]) duloxetine 60 MG Delayed Release Oral Capsule [Cymbalt a] Cymbalta 60 MG Cymbalta 60 MG 12/02/2020 12:00:00 AM EDT 1.0 {capsule} acti ve Cymbalta 60 MG eCW1 ([facility]) duloxetine 60 MG Delayed Release Oral Capsule [Cymbalt a] Cymbalta 60 MG Cymbalta 60 MG 12/02/2020 12:00:00 AM EDT 1.0 {capsule} acti ve Cymbalta 60 MG eCW1 ([facility]) duloxetine 60 MG Delayed Release Oral Capsule [Cymbalt a] Cymbalta 60 MG Cymbalta 60 MG 12/02/2020 12:00:00 AM EDT 1.0 {capsule} acti ve Cymbalta 60 MG eCW1 ([facility]) 60 ACTUAT Fluticasone propionate 0.25 MG /ACTUAT / salmeterol 0.05 MG/ACTUAT Dry Powder Inhaler [Advair] Advair Diskus 250-50 MCG/DOSE Advair Diskus 250-50 MCG/DOSE 12/02/2020 12:00:00 AM EDT 1.0 {puff} activ e Advair Diskus 250-50 MCG/DOSE eCW1 ([facility]) duloxetine 60 MG Delayed Release Oral Capsule [Cymbalt a] Cymbalta 60 MG Cymbalta 60 MG 12/02/2020 12:00:00 AM EDT 1.0 {capsule} acti ve Cymbalta 60 MG eCW1 ([facility]) 60 ACTUAT Fluticasone propionate 0.25 MG /ACTUAT / salmeterol 0.05 MG/ACTUAT Dry Powder Inhaler [Advair] Advair Diskus 250-50 MCG/DOSE Advair Diskus 250-50 MCG/DOSE 12/02/2020 12:00:00 AM EDT 1.0 {puff} activ e Advair Diskus 250-50 MCG/DOSE eCW1 ([facility]) duloxetine 60 MG Delayed Release Oral Capsule [Cymbalt a] Cymbalta 60 MG Cymbalta 60 MG 12/02/2020 12:00:00 AM EDT 1.0 {capsule} acti ve Cymbalta 60 MG eCW1 ([facility]) duloxetine 60 MG Delayed Release Oral Capsule [Cymbalt a] Cymbalta 60 MG Cymbalta 60 MG 12/02/2020 12:00:00 AM EDT 1.0 {capsule} acti ve Cymbalta 60 MG eCW1 ([facility]) duloxetine 60 MG Delayed Release Oral Capsule [Cymbalt a] Cymbalta 60 MG Cymbalta 60 MG 12/02/2020 12:00:00 AM EDT 1.0 {capsule} acti ve Cymbalta 60 MG eCW1 ([facility]) duloxetine 60 MG Delayed Release Oral Capsule [Cymbalt a] Cymbalta 60 MG Cymbalta 60 MG 12/02/2020 12:00:00 AM EDT 1.0 {capsule} acti ve Cymbalta 60 MG eCW1 ([facility]) duloxetine 60 MG Delayed Release Oral Capsule [Cymbalt a] Cymbalta 60 MG Cymbalta 60 MG 12/02/2020 12:00:00 AM EDT 1.0 {capsule} acti ve Cymbalta 60 MG eCW1 ([facility]) duloxetine 60 MG Delayed Release Oral Capsule [Cymbalt a] Cymbalta 60 MG Cymbalta 60 MG 12/02/2020 12:00:00 AM EDT 1.0 {capsule} acti ve Cymbalta 60 MG eCW1 ([facility]) duloxetine 60 MG Delayed Release Oral Capsule [Cymbalt a] Cymbalta 60 MG Cymbalta 60 MG 12/02/2020 12:00:00 AM EDT 1.0 {capsule} acti ve Cymbalta 60 MG eCW1 ([facility]) duloxetine 60 MG Delayed Release Oral Capsule [Cymbalt a] Cymbalta 60 MG Cymbalta 60 MG 12/02/2020 12:00:00 AM EDT 1.0 {capsule} acti ve Cymbalta 60 MG eCW1 ([facility]) duloxetine 60 MG Delayed Release Oral Capsule [Cymbalt a] Cymbalta 60 MG Cymbalta 60 MG 12/02/2020 12:00:00 AM EDT 1.0 {capsule} acti ve Cymbalta 60 MG eCW1 ([facility]) duloxetine 60 MG Delayed Release Oral Capsule [Cymbalt a] Cymbalta 60 MG Cymbalta 60 MG 12/02/2020 12:00:00 AM EDT 1.0 {capsule} acti ve Cymbalta 60 MG eCW1 ([facility]) duloxetine 60 MG Delayed Release Oral Capsule [Cymbalt a] Cymbalta 60 MG Cymbalta 60 MG 12/02/2020 12:00:00 AM EDT 1.0 {capsule} acti ve Cymbalta 60 MG eCW1 ([facility]) duloxetine 60 MG Delayed Release Oral Capsule [Cymbalt a] Cymbalta 60 MG Cymbalta 60 MG 12/02/2020 12:00:00 AM EDT 1.0 {capsule} acti ve Cymbalta 60 MG eCW1 ([facility]) duloxetine 60 MG Delayed Release Oral Capsule [Cymbalt a] Cymbalta 60 MG Cymbalta 60 MG 12/02/2020 12:00:00 AM EDT 1.0 {capsule} acti ve Cymbalta 60 MG eCW1 ([facility]) duloxetine 60 MG Delayed Release Oral Capsule [Cymbalt a] Cymbalta 60 MG Cymbalta 60 MG 12/02/2020 12:00:00 AM EDT 1.0 {capsule} acti ve Cymbalta 60 MG eCW1 ([facility]) duloxetine 60 MG Delayed Release Oral Capsule [Cymbalt a] Cymbalta 60 MG Cymbalta 60 MG 12/02/2020 12:00:00 AM EDT 1.0 {capsule} acti ve Cymbalta 60 MG eCW1 ([facility]) duloxetine 60 MG Delayed Release Oral Capsule [Cymbalt a] Cymbalta 60 MG Cymbalta 60 MG 12/02/2020 12:00:00 AM EDT 1.0 {capsule} acti ve Cymbalta 60 MG eCW1 ([facility]) 200 mg 11/25/2020 12:00:00 AM EDT tablet 60 TAKE ONE TABLET BY MOUTH TWICE A DAY TAKE ONE TABLET BY MOUTH TWICE A DAY SOLD: 11/25/2020 [facility] Carbamazepine 200 MG Oral Tablet carBAMazepine 200 MG carBAM azepine 200 MG 11/24/2020 12:00:00 AM EDT 1.0 {tablet} active carBAMazepine 200 MG eCW1 ([facility]) Carbamazepine 200 MG Oral Tablet carBAMazepine 200 MG carBAM azepine 200 MG 11/24/2020 12:00:00 AM EDT 1.0 {tablet} active carBAMazepine 200 MG eCW1 ([facility]) Carbamazepine 200 MG Oral Tablet carBAMazepine 200 MG carBAM azepine 200 MG 11/24/2020 12:00:00 AM EDT 1.0 {tablet} active carBAMazepine 200 MG eCW1 ([facility]) Carbamazepine 200 MG Oral Tablet carBAMazepine 200 MG carBAM azepine 200 MG 11/24/2020 12:00:00 AM EDT 1.0 {tablet} active carBAMazepine 200 MG eCW1 ([facility]) Carbamazepine 200 MG Oral Tablet carBAMazepine 200 MG carBAM azepine 200 MG 11/24/2020 12:00:00 AM EDT 1.0 {tablet} active carBAMazepine 200 MG eCW1 ([facility]) Carbamazepine 200 MG Oral Tablet carBAMazepine 200 MG carBAM azepine 200 MG 11/24/2020 12:00:00 AM EDT 1.0 {tablet} active carBAMazepine 200 MG eCW1 ([facility]) Carbamazepine 200 MG Oral Tablet carBAMazepine 200 MG carBAM azepine 200 MG 11/24/2020 12:00:00 AM EDT 1.0 {tablet} active carBAMazepine 200 MG eCW1 ([facility]) Carbamazepine 200 MG Oral Tablet carBAMazepine 200 MG carBAM azepine 200 MG 11/24/2020 12:00:00 AM EDT 1.0 {tablet} active carBAMazepine 200 MG eCW1 ([facility]) Carbamazepine 200 MG Oral Tablet carBAMazepine 200 MG carBAM azepine 200 MG 11/24/2020 12:00:00 AM EDT 1.0 {tablet} active carBAMazepine 200 MG eCW1 ([facility]) Carbamazepine 200 MG Oral Tablet carBAMazepine 200 MG carBAM azepine 200 MG 11/24/2020 12:00:00 AM EDT 1.0 {tablet} active carBAMazepine 200 MG eCW1 ([facility]) Carbamazepine 200 MG Oral Tablet carBAMazepine 200 MG carBAM azepine 200 MG 11/24/2020 12:00:00 AM EDT 1.0 {tablet} active carBAMazepine 200 MG eCW1 ([facility]) Carbamazepine 200 MG Oral Tablet carBAMazepine 200 MG carBAM azepine 200 MG 11/24/2020 12:00:00 AM EDT 1.0 {tablet} active carBAMazepine 200 MG eCW1 ([facility]) Carbamazepine 200 MG Oral Tablet carBAMazepine 200 MG carBAM azepine 200 MG 11/24/2020 12:00:00 AM EDT 1.0 {tablet} active carBAMazepine 200 MG eCW1 ([facility]) Carbamazepine 200 MG Oral Tablet carBAMazepine 200 MG carBAM azepine 200 MG 11/24/2020 12:00:00 AM EDT 1.0 {tablet} active carBAMazepine 200 MG eCW1 ([facility]) Carbamazepine 200 MG Oral Tablet carBAMazepine 200 MG carBAM azepine 200 MG 11/24/2020 12:00:00 AM EDT 1.0 {tablet} active carBAMazepine 200 MG eCW1 ([facility]) Carbamazepine 200 MG Oral Tablet carBAMazepine 200 MG carBAM azepine 200 MG 11/24/2020 12:00:00 AM EDT 1.0 {tablet} active carBAMazepine 200 MG eCW1 ([facility]) Carbamazepine 200 MG Oral Tablet carBAMazepine 200 MG carBAM azepine 200 MG 11/24/2020 12:00:00 AM EDT 1.0 {tablet} active carBAMazepine 200 MG eCW1 ([facility]) Carbamazepine 200 MG Oral Tablet carBAMazepine 200 MG carBAM azepine 200 MG 11/24/2020 12:00:00 AM EDT 1.0 {tablet} active carBAMazepine 200 MG eCW1 ([facility]) Carbamazepine 200 MG Oral Tablet carBAMazepine 200 MG carBAM azepine 200 MG 11/24/2020 12:00:00 AM EDT 1.0 {tablet} active carBAMazepine 200 MG eCW1 ([facility]) 20 mg 11/23/2020 12:00:00 AM EDT [...] {capsule} acti ve Cymbalta 30 MG eCW1 ([facility]) duloxetine 30 MG Delayed Release Oral Capsule [Cymbalt a] Cymbalta 30 MG Cymbalta 30 MG 11/22/2020 12:00:00 AM EDT 1.0 {capsule} acti ve Cymbalta 30 MG eCW1 ([facility]) duloxetine 30 MG Delayed Release Oral Capsule [Cymbalt a] Cymbalta 30 MG Cymbalta 30 MG 11/22/2020 12:00:00 AM EDT 1.0 {capsule} acti ve Cymbalta 30 MG eCW1 ([facility]) duloxetine 30 MG Delayed Release Oral Capsule [Cymbalt a] Cymbalta 30 MG Cymbalta 30 MG 11/22/2020 12:00:00 AM EDT 1.0 {capsule} acti ve Cymbalta 30 MG eCW1 ([facility]) duloxetine 30 MG Delayed Release Oral Capsule [Cymbalt a] Cymbalta 30 MG Cymbalta 30 MG 11/22/2020 12:00:00 AM EDT 1.0 {capsule} acti ve Cymbalta 30 MG eCW1 ([facility]) duloxetine 30 MG Delayed Release Oral Capsule [Cymbalt a] Cymbalta 30 MG Cymbalta 30 MG 11/22/2020 12:00:00 AM EDT 1.0 {capsule} acti ve Cymbalta 30 MG eCW1 ([facility]) duloxetine 30 MG Delayed Release Oral Capsule [Cymbalt a] Cymbalta 30 MG Cymbalta 30 MG 11/22/2020 12:00:00 AM EDT 1.0 {capsule} acti ve Cymbalta 30 MG eCW1 ([facility]) duloxetine 30 MG Delayed Release Oral Capsule [Cymbalt a] Cymbalta 30 MG Cymbalta 30 MG 11/22/2020 12:00:00 AM EDT 1.0 {capsule} acti ve Cymbalta 30 MG eCW1 ([facility]) duloxetine 30 MG Delayed Release Oral Capsule [Cymbalt a] Cymbalta 30 MG Cymbalta 30 MG 11/22/2020 12:00:00 AM EDT 1.0 {capsule} acti ve Cymbalta 30 MG eCW1 ([facility]) duloxetine 30 MG Delayed Release Oral Capsule [Cymbalt a] Cymbalta 30 MG Cymbalta 30 MG 11/22/2020 12:00:00 AM EDT 1.0 {capsule} acti ve Cymbalta 30 MG eCW1 ([facility]) duloxetine 30 MG Delayed Release Oral Capsule [Cymbalt a] Cymbalta 30 MG Cymbalta 30 MG 11/22/2020 12:00:00 AM EDT 1.0 {capsule} acti ve Cymbalta 30 MG eCW1 ([facility]) 20 mg 11/19/2020 12:00:00 AM EDT [...] EDT a ctive Adderall 20 MG eCW1 ([facility]) Amphetamine aspartate 5 MG / Amphetamine Sulfate 5 MG / Dextroamphetamine saccharate 5 MG / Dextroamphetamine Sulfate 5 MG Oral Tablet [Adderall] Adderall 20 MG Adderall 20 MG 11/18/2020 12:00:00 AM EDT a ctive Adderall 20 MG eCW1 ([facility]) Amphetamine aspartate 5 MG / Amphetamine Sulfate 5 MG / Dextroamphetamine saccharate 5 MG / Dextroamphetamine Sulfate 5 MG Oral Tablet [Adderall] Adderall 20 MG Adderall 20 MG 11/18/2020 12:00:00 AM EDT a ctive Adderall 20 MG eCW1 ([facility]) Amphetamine aspartate 5 MG / Amphetamine Sulfate 5 MG / Dextroamphetamine saccharate 5 MG / Dextroamphetamine Sulfate 5 MG Oral Tablet [Adderall] Adderall 20 MG Adderall 20 MG 11/18/2020 12:00:00 AM EDT a ctive Adderall 20 MG eCW1 ([facility]) Amphetamine aspartate 5 MG / Amphetamine Sulfate 5 MG / Dextroamphetamine saccharate 5 MG / Dextroamphetamine Sulfate 5 MG Oral Tablet [Adderall] Adderall 20 MG Adderall 20 MG 11/18/2020 12:00:00 AM EDT a ctive Adderall 20 MG eCW1 ([facility]) Amphetamine aspartate 5 MG / Amphetamine Sulfate 5 MG / Dextroamphetamine saccharate 5 MG / Dextroamphetamine Sulfate 5 MG Oral Tablet [Adderall] Adderall 20 MG Adderall 20 MG 11/18/2020 12:00:00 AM EDT a ctive Adderall 20 MG eCW1 ([facility]) Amphetamine aspartate 5 MG / Amphetamine Sulfate 5 MG / Dextroamphetamine saccharate 5 MG / Dextroamphetamine Sulfate 5 MG Oral Tablet [Adderall] Adderall 20 MG Adderall 20 MG 11/18/2020 12:00:00 AM EDT a ctive Adderall 20 MG eCW1 ([facility]) Amphetamine aspartate 5 MG / Amphetamine Sulfate 5 MG / Dextroamphetamine saccharate 5 MG / Dextroamphetamine Sulfate 5 MG Oral Tablet [Adderall] Adderall 20 MG Adderall 20 MG 11/18/2020 12:00:00 AM EDT a ctive Adderall 20 MG eCW1 ([facility]) Amphetamine aspartate 5 MG / Amphetamine Sulfate 5 MG / Dextroamphetamine saccharate 5 MG / Dextroamphetamine Sulfate 5 MG Oral Tablet [Adderall] Adderall 20 MG Adderall 20 MG 11/18/2020 12:00:00 AM EDT a ctive Adderall 20 MG eCW1 ([facility]) Amphetamine aspartate 5 MG / Amphetamine Sulfate 5 MG / Dextroamphetamine saccharate 5 MG / Dextroamphetamine Sulfate 5 MG Oral Tablet [Adderall] Adderall 20 MG Adderall 20 MG 11/18/2020 12:00:00 AM EDT a ctive Adderall 20 MG eCW1 ([facility]) Amphetamine aspartate 5 MG / Amphetamine Sulfate 5 MG / Dextroamphetamine saccharate 5 MG / Dextroamphetamine Sulfate 5 MG Oral Tablet [Adderall] Adderall 20 MG Adderall 20 MG 11/18/2020 12:00:00 AM EDT a ctive Adderall 20 MG eCW1 ([facility]) 600 mg 11/13/2020 12:00:00 AM EDT tablet 180 TAKE ONE TABLET BY MOUTH FOUR TIMES A DAY (TITRATE DOSE GRADUALLY UP TO 900MG BY TAKING ANOTHER 300MG TABLET FOUR TIMES A DAY NEEDED) TAKE ONE TABLET BY MOUTH FOUR TIMES A DA Y (TITRATE DOSE GRADUALLY UP TO 900MG BY TAKING ANOTHER 300MG TABLET FOUR TIMES A DAY NEEDED) SOLD: 11/13/2020 [facility] gabapentin 300 MG Oral Capsule Gabapentin 11/12/2020 12:00:00 AM EDT ORAL completed MEDENT ([facility]) gabapentin 600 MG Oral Tablet Gabapentin 11/12/2020 12:00:00 AM EDT ORAL active [facility]ENT ([facility]) gabapentin 600 MG Oral Tablet Gabapentin 600 MG Gabapentin 6 00 MG 11/01/2020 12:00:00 AM EDT 1.0 {capsule} active G abapentin 600 MG eCW1 ([facility]) gabapentin 600 MG Oral Tablet Gabapentin 600 MG Gabapentin 6 00 MG 11/01/2020 12:00:00 AM EDT 1.0 {capsule} active G abapentin 600 MG eCW1 ([facility]) gabapentin 600 MG Oral Tablet Gabapentin 600 MG Gabapentin 6 00 MG 11/01/2020 12:00:00 AM EDT 1.0 {capsule} active G abapentin 600 MG eCW1 ([facility]) gabapentin 300 MG Oral Capsule Gabapentin 300 MG Gabapentin 300 MG 11/01/2020 12:00:00 AM EDT 1.0 {capsule} active G abapentin 300 MG eCW1 ([facility]) gabapentin 600 MG Oral Tablet Gabapentin 600 MG Gabapentin 6 00 MG 11/01/2020 12:00:00 AM EDT 1.0 {capsule} active G abapentin 600 MG eCW1 ([facility]) gabapentin 600 MG Oral Tablet Gabapentin 600 MG Gabapentin 6 00 MG 11/01/2020 12:00:00 AM EDT 1.0 {capsule} active G abapentin 600 MG eCW1 ([facility]) gabapentin 600 MG Oral Tablet Gabapentin 600 MG Gabapentin 6 00 MG 11/01/2020 12:00:00 AM EDT 1.0 {capsule} active G abapentin 600 MG eCW1 ([facility]) gabapentin 600 MG Oral Tablet Gabapentin 600 MG Gabapentin 6 00 MG 11/01/2020 12:00:00 AM EDT 1.0 {capsule} active G abapentin 600 MG eCW1 ([facility]) gabapentin 600 MG Oral Tablet Gabapentin 600 MG Gabapentin 6 00 MG 11/01/2020 12:00:00 AM EDT 1.0 {capsule} suspended Gabapentin 600 MG eCW1 ([facility]) gabapentin 300 MG Oral Capsule Gabapentin 300 MG Gabapentin 300 MG 11/01/2020 12:00:00 AM EDT 1.0 {capsule} active G abapentin 300 MG eCW1 ([facility]) gabapentin 600 MG Oral Tablet Gabapentin 600 MG Gabapentin 6 00 MG 11/01/2020 12:00:00 AM EDT 1.0 {capsule} active G abapentin 600 MG eCW1 ([facility]) gabapentin 300 MG Oral Capsule Gabapentin 300 MG Gabapentin 300 MG 11/01/2020 12:00:00 AM EDT 1.0 {capsule} active G abapentin 300 MG eCW1 ([facility]) gabapentin 600 MG Oral Tablet Gabapentin 600 MG Gabapentin 6 00 MG 11/01/2020 12:00:00 AM EDT 1.0 {capsule} active G abapentin 600 MG eCW1 ([facility]) gabapentin 600 MG Oral Tablet Gabapentin 600 MG Gabapentin 6 00 MG 11/01/2020 12:00:00 AM EDT 1.0 {capsule} active G abapentin 600 MG eCW1 ([facility]) gabapentin 600 MG Oral Tablet Gabapentin 600 MG Gabapentin 6 00 MG 11/01/2020 12:00:00 AM EDT 1.0 {capsule} active G abapentin 600 MG eCW1 ([facility]) gabapentin 600 MG Oral Tablet Gabapentin 600 MG Gabapentin 6 00 MG 11/01/2020 12:00:00 AM EDT 1.0 {capsule} active G abapentin 600 MG eCW1 ([facility]) gabapentin 300 MG Oral Capsule Gabapentin 300 MG Gabapentin 300 MG 11/01/2020 12:00:00 AM EDT 1.0 {capsule} active G abapentin 300 MG eCW1 ([facility]) gabapentin 300 MG Oral Capsule Gabapentin 300 MG Gabapentin 300 MG 11/01/2020 12:00:00 AM EDT 1.0 {capsule} active G abapentin 300 MG eCW1 ([facility]) gabapentin 600 MG Oral Tablet Gabapentin 600 MG Gabapentin 6 00 MG 11/01/2020 12:00:00 AM EDT 1.0 {capsule} active G abapentin 600 MG eCW1 ([facility]) gabapentin 600 MG Oral Tablet Gabapentin 600 MG Gabapentin 6 00 MG 11/01/2020 12:00:00 AM EDT 1.0 {capsule} suspended Gabapentin 600 MG eCW1 ([facility]) gabapentin 600 MG Oral Tablet Gabapentin 600 MG Gabapentin 6 00 MG 11/01/2020 12:00:00 AM EDT 1.0 {capsule} active G abapentin 600 MG eCW1 ([facility]) gabapentin 600 MG Oral Tablet Gabapentin 600 MG Gabapentin 6 00 MG 11/01/2020 12:00:00 AM EDT 1.0 {capsule} active G abapentin 600 MG eCW1 ([facility]) gabapentin 600 MG Oral Tablet Gabapentin 600 MG Gabapentin 6 00 MG 11/01/2020 12:00:00 AM EDT 1.0 {capsule} active G abapentin 600 MG eCW1 ([facility]) gabapentin 600 MG Oral Tablet Gabapentin 600 MG Gabapentin 6 00 MG 11/01/2020 12:00:00 AM EDT 1.0 {capsule} suspended Gabapentin 600 MG eCW1 ([facility]) gabapentin 600 MG Oral Tablet Gabapentin 600 MG Gabapentin 6 00 MG 11/01/2020 12:00:00 AM EDT 1.0 {capsule} suspended Gabapentin 600 MG eCW1 ([facility]) gabapentin 600 MG Oral Tablet Gabapentin 600 MG Gabapentin 6 00 MG 11/01/2020 12:00:00 AM EDT 1.0 {capsule} active G abapentin 600 MG eCW1 ([facility]) gabapentin 600 MG Oral Tablet Gabapentin 600 MG Gabapentin 6 00 MG 11/01/2020 12:00:00 AM EDT 1.0 {capsule} active G abapentin 600 MG eCW1 ([facility]) gabapentin 600 MG Oral Tablet Gabapentin 600 MG Gabapentin 6 00 MG 11/01/2020 12:00:00 AM EDT 1.0 {capsule} active G abapentin 600 MG eCW1 ([facility]) gabapentin 600 MG Oral Tablet Gabapentin 600 MG Gabapentin 6 00 MG 11/01/2020 12:00:00 AM EDT 1.0 {capsule} active G abapentin 600 MG eCW1 ([facility]) gabapentin 300 MG Oral Capsule Gabapentin 300 MG Gabapentin 300 MG 11/01/2020 12:00:00 AM EDT 1.0 {capsule} active G abapentin 300 MG eCW1 ([facility]) gabapentin 600 MG Oral Tablet Gabapentin 600 MG Gabapentin 6 00 MG 11/01/2020 12:00:00 AM EDT 1.0 {capsule} active G abapentin 600 MG eCW1 ([facility]) gabapentin 600 MG Oral Tablet Gabapentin 600 MG Gabapentin 6 00 MG 11/01/2020 12:00:00 AM EDT 1.0 {capsule} suspended Gabapentin 600 MG eCW1 ([facility]) gabapentin 600 MG Oral Tablet Gabapentin 600 MG Gabapentin 6 00 MG 11/01/2020 12:00:00 AM EDT 1.0 {capsule} active G abapentin 600 MG eCW1 ([facility]) gabapentin 600 MG Oral Tablet Gabapentin 600 MG Gabapentin 6 00 MG 11/01/2020 12:00:00 AM EDT 1.0 {capsule} active G abapentin 600 MG eCW1 ([facility]) gabapentin 600 MG Oral Tablet Gabapentin 600 MG Gabapentin 6 00 MG 11/01/2020 12:00:00 AM EDT 1.0 {capsule} active G abapentin 600 MG eCW1 ([facility]) gabapentin 600 MG Oral Tablet Gabapentin 600 MG Gabapentin 6 00 MG 11/01/2020 12:00:00 AM EDT 1.0 {capsule} active G abapentin 600 MG eCW1 ([facility]) gabapentin 600 MG Oral Tablet Gabapentin 600 MG Gabapentin 6 00 MG 11/01/2020 12:00:00 AM EDT 1.0 {capsule} suspended Gabapentin 600 MG eCW1 ([facility]) gabapentin 300 MG Oral Capsule Gabapentin 300 MG Gabapentin 300 MG 11/01/2020 12:00:00 AM EDT 1.0 {capsule} active G abapentin 300 MG eCW1 ([facility]) gabapentin 600 MG Oral Tablet Gabapentin 600 MG Gabapentin 6 00 MG 11/01/2020 12:00:00 AM EDT 1.0 {capsule} active G abapentin 600 MG eCW1 ([facility]) gabapentin 600 MG Oral Tablet Gabapentin 600 MG Gabapentin 6 00 MG 11/01/2020 12:00:00 AM EDT 1.0 {capsule} active G abapentin 600 MG eCW1 ([facility]) gabapentin 300 MG Oral Capsule Gabapentin 300 MG Gabapentin 300 MG 11/01/2020 12:00:00 AM EDT 1.0 {capsule} active G abapentin 300 MG eCW1 ([facility]) gabapentin 300 MG Oral Capsule Gabapentin 300 MG Gabapentin 300 MG 11/01/2020 12:00:00 AM EDT 1.0 {capsule} active G abapentin 300 MG eCW1 ([facility]) 300 mg 11/01/2020 12:00:00 AM EDT capsule 30 TAKE ONE CAPSULE BY MOUTH EVERY DAY TAKE ONE CAPSULE BY MOUTH EVERY DAY SOLD: 11/01/2020 [facility] gabapentin 600 MG Oral Tablet Gabapentin 600 MG Gabapentin 6 00 MG 11/01/2020 12:00:00 AM EDT 1.0 {capsule} active G abapentin 600 MG eCW1 ([facility]) gabapentin 600 MG Oral Tablet Gabapentin 600 MG Gabapentin 6 00 MG 11/01/2020 12:00:00 AM EDT 1.0 {capsule} active G abapentin 600 MG eCW1 ([facility]) 4 mg 10/27/2020 12:00:00 AM EDT [...] EDT a ctive Adderall 20 MG eCW1 ([facility]) Amphetamine aspartate 5 MG / Amphetamine Sulfate 5 MG / Dextroamphetamine saccharate 5 MG / Dextroamphetamine Sulfate 5 MG Oral Tablet [Adderall] Adderall 20 MG Adderall 20 MG 10/18/2020 12:00:00 AM EDT a ctive Adderall 20 MG eCW1 ([facility]) Amphetamine aspartate 5 MG / Amphetamine Sulfate 5 MG / Dextroamphetamine saccharate 5 MG / Dextroamphetamine Sulfate 5 MG Oral Tablet [Adderall] Adderall 20 MG Adderall 20 MG 10/18/2020 12:00:00 AM EDT a ctive Adderall 20 MG eCW1 ([facility]) Amphetamine aspartate 5 MG / Amphetamine Sulfate 5 MG / Dextroamphetamine saccharate 5 MG / Dextroamphetamine Sulfate 5 MG Oral Tablet [Adderall] Adderall 20 MG Adderall 20 MG 10/18/2020 12:00:00 AM EDT a ctive Adderall 20 MG eCW1 ([facility]) Amphetamine aspartate 5 MG / Amphetamine Sulfate 5 MG / Dextroamphetamine saccharate 5 MG / Dextroamphetamine Sulfate 5 MG Oral Tablet [Adderall] Adderall 20 MG Adderall 20 MG 10/18/2020 12:00:00 AM EDT a ctive Adderall 20 MG eCW1 ([facility]) 25 mg 10/17/2020 12:00:00 AM EDT [...] MOUTH TWICE A DAY WITH FOOD SOLD: [facility] 25 mg 10/17/2020 12:00:00 AM EDT tablet 15 TAKE ONE-HALF TABLET BY MOUTH EVERY DAY WITH FOOD TAKE ONE-HALF TABLET BY MOUTH EVERY DAY WITH FOOD SOLD : 12/19/2020 [facility] 500 mg 10/17/2020 12:00:00 AM EDT tablet 60 TAKE ONE TABLET BY MOUTH TWICE A DAY WITH FOOD TAKE ONE TABLET BY MOUTH TWICE A DAY WITH FOOD SOLD: [facility] 500 mg 10/17/2020 12:00:00 AM EDT tablet 60 TAKE ONE TABLET BY MOUTH TWICE A DAY WITH FOOD TAKE ONE TABLET BY MOUTH TWICE A DAY WITH FOOD SOLD: [facility] 1 % 10/14/2020 12:00:00 AM [...] 1.0 {suppository} active [facility] 25 MG eCW1 ([facility]) hydrocortisone acetate 25 MG Rectal Suppository [[facility]] [facility] 25 MG [facility] 25 MG 10/11/2020 12:00:00 AM EDT 1.0 {suppository} active An[facility]ol-HC 25 MG eCW1 ([facility]) hydrocortisone acetate 25 MG Rectal Suppository [[facility]] [facility] 25 MG [facility] 25 MG 10/11/2020 12:00:00 AM EDT 1.0 {suppository} active Anusol-HC 25 MG eCW1 ([facility]) hydrocortisone acetate 25 MG Rectal Suppository [[facility]] [facility] 25 MG [facility] 25 MG 10/11/2020 12:00:00 AM EDT 1.0 {suppository} active Anusol-HC 25 MG eCW1 ([facility]) hydrocortisone acetate 25 MG Rectal Suppository [[facility]] [facility] 25 MG [facility] 25 MG 10/11/2020 12:00:00 AM EDT 1.0 {suppository} active Anusol-HC 25 MG eCW1 ([facility]) hydrocortisone acetate 25 MG Rectal Suppository [[facility]] [facility] 25 MG [facility] 25 MG 10/11/2020 12:00:00 AM EDT 1.0 {suppository} active An[facility]ol[facility]HC 25 MG eCW1 ([facility]) hydrocortisone acetate 25 MG Rectal Suppository [[facility]] [facility] 25 MG [facility] 25 MG 10/11/2020 12:00:00 AM EDT 1.0 {suppository} active Anusol-HC 25 MG eCW1 ([facility]) hydrocortisone acetate 25 MG Rectal Suppository [[facility]] [facility] 25 MG [facility] 25 MG 10/11/2020 12:00:00 AM EDT 1.0 {suppository} active Anusol-HC 25 MG eCW1 ([facility]) hydrocortisone acetate 25 MG Rectal Suppository [[facility]] [facility] 25 MG [facility] 25 MG 10/11/2020 12:00:00 AM EDT 1.0 {suppository} active Anusol[facility]HC 25 MG eCW1 ([facility]) hydrocortisone acetate 25 MG Rectal Suppository [[facility]] [facility] 25 MG [facility] 25 MG 10/11/2020 12:00:00 AM EDT 1.0 {suppository} active Anusol-HC 25 MG eCW1 ([facility]) hydrocortisone acetate 25 MG Rectal Suppository [[facility]] [facility] 25 MG [facility] 25 MG 10/11/2020 12:00:00 AM EDT 1.0 {suppository} active An[facility]ol[facility] 25 MG eCW1 ([facility]) hydrocortisone acetate 25 MG Rectal Suppository [[facility]] [facility] 25 MG [facility] 25 MG 10/11/2020 12:00:00 AM EDT 1.0 {suppository} active Anusol-HC 25 MG eCW1 ([facility]) hydrocortisone acetate 25 MG Rectal Suppository [[facility]] [facility] 25 MG [facility] 25 MG 10/11/2020 12:00:00 AM EDT 1.0 {suppository} active Anusol-HC 25 MG eCW1 ([facility]) hydrocortisone acetate 25 MG Rectal Suppository [[facility]] [facility] 25 MG [facility] 25 MG 10/11/2020 12:00:00 AM EDT 1.0 {suppository} active Anusol-HC 25 MG eCW1 ([facility]) hydrocortisone acetate 25 MG Rectal Suppository [[facility]] [facility] 25 MG [facility] 25 MG 10/11/2020 12:00:00 AM EDT 1.0 {suppository} active Anusol-HC 25 MG eCW1 ([facility]) hydrocortisone acetate 25 MG Rectal Suppository [[facility]] [facility] 25 MG [facility] 25 MG 10/11/2020 12:00:00 AM EDT 1.0 {suppository} active Anusol-HC 25 MG eCW1 ([facility]) hydrocortisone acetate 25 MG Rectal Suppository [[facility]] [facility] 25 MG [facility] 25 MG 10/11/2020 12:00:00 AM EDT 1.0 {suppository} active An[facility]ol[facility] 25 MG eCW1 ([facility]) hydrocortisone acetate 25 MG Rectal Suppository [[facility]] [facility] 25 MG [facility] 25 MG 10/11/2020 12:00:00 AM EDT 1.0 {suppository} active An[facility]ol[facility]HC 25 MG eCW1 ([facility]) hydrocortisone acetate 25 MG Rectal Suppository [[facility]] [facility] 25 MG [facility] 25 MG 10/11/2020 12:00:00 AM EDT 1.0 {suppository} active Anusol-HC 25 MG eCW1 ([facility]) hydrocortisone acetate 25 MG Rectal Suppository [[facility]] [facility] 25 MG [facility] 25 MG 10/11/2020 12:00:00 AM EDT 1.0 {suppository} active An[facility]ol[facility]HC 25 MG eCW1 ([facility]) hydrocortisone acetate 25 MG Rectal Suppository [[facility]] [facility] 25 MG [facility] 25 MG 10/11/2020 12:00:00 AM EDT 1.0 {suppository} active An[facility]ol[facility] 25 MG eCW1 ([facility]) 20 mg 10/06/2020 12:00:00 AM EDT [...] EDT a ctive Adderall 20 MG eCW1 ([facility]) Amphetamine aspartate 5 MG / Amphetamine Sulfate 5 MG / Dextroamphetamine saccharate 5 MG / Dextroamphetamine Sulfate 5 MG Oral Tablet [Adderall] Adderall 20 MG Adderall 20 MG 09/20/2020 12:00:00 AM EDT a ctive Adderall 20 MG eCW1 ([facility]) Amphetamine aspartate 5 MG / Amphetamine Sulfate 5 MG / Dextroamphetamine saccharate 5 MG / Dextroamphetamine Sulfate 5 MG Oral Tablet [Adderall] Adderall 20 MG Adderall 20 MG 09/20/2020 12:00:00 AM EDT a ctive Adderall 20 MG eCW1 ([facility]) Amphetamine aspartate 5 MG / Amphetamine Sulfate 5 MG / Dextroamphetamine saccharate 5 MG / Dextroamphetamine Sulfate 5 MG Oral Tablet [Adderall] Adderall 20 MG Adderall 20 MG 09/20/2020 12:00:00 AM EDT a ctive Adderall 20 MG eCW1 ([facility]) Amphetamine aspartate 5 MG / Amphetamine [...] ONCE A MONTH FOR MIGRAINE PREVENTION SOLD: 04/17/2021 [facility] 120 mg/mL 09/03/2020 12:00:00 AM [...] e Norethindrone Acet-Ethinyl Est 1-20 MG-MCG eCW1 ([facility]) Norethindrone Acet-Ethinyl Est 1-20 MG-MCG Norethindro ne Acet-Ethinyl Est 1-20 MG-MCG 09/02/2020 12:00:00 AM EDT 1.0 {tablet} activ e Norethindrone Acet-Ethinyl Est 1-20 MG-MCG eCW1 ([facility]) Norethindrone Acet-Ethinyl Est 1-20 MG-MCG Norethindro ne Acet-Ethinyl Est 1-20 MG-MCG 09/02/2020 12:00:00 AM EDT 1.0 {tablet} activ e Norethindrone Acet-Ethinyl Est 1-20 MG-MCG eCW1 ([facility]) Norethindrone Acet-Ethinyl Est 1-20 MG-MCG Norethindro ne Acet-Ethinyl Est 1-20 MG-MCG 09/02/2020 12:00:00 AM EDT 1.0 {tablet} activ e Norethindrone Acet-Ethinyl Est 1-20 MG-MCG eCW1 ([facility]) Norethindrone Acet-Ethinyl Est 1-20 MG-MCG Norethindro ne Acet-Ethinyl Est 1-20 MG-MCG 09/02/2020 12:00:00 AM EDT 1.0 {tablet} activ e Norethindrone Acet-Ethinyl Est 1-20 MG-MCG eCW1 ([facility]) Norethindrone Acet-Ethinyl Est 1-20 MG-MCG Norethindro ne Acet-Ethinyl Est 1-20 MG-MCG 09/02/2020 12:00:00 AM EDT 1.0 {tablet} activ e Norethindrone Acet-Ethinyl Est 1-20 MG-MCG eCW1 ([facility]) Norethindrone Acet-Ethinyl Est 1-20 MG-MCG Norethindro ne Acet-Ethinyl Est 1-20 MG-MCG 09/02/2020 12:00:00 AM EDT 1.0 {tablet} activ e Norethindrone Acet-Ethinyl Est 1-20 MG-MCG eCW1 ([facility]) Norethindrone Acet-Ethinyl Est 1-20 MG-MCG Norethindro ne Acet-Ethinyl Est 1-20 MG-MCG 09/02/2020 12:00:00 AM EDT 1.0 {tablet} activ e Norethindrone Acet-Ethinyl Est 1-20 MG-MCG eCW1 ([facility]) Norethindrone Acet-Ethinyl Est 1-20 MG-MCG Norethindro ne Acet-Ethinyl Est 1-20 MG-MCG 09/02/2020 12:00:00 AM EDT 1.0 {tablet} activ e Norethindrone Acet-Ethinyl Est 1-20 MG-MCG eCW1 ([facility]) Norethindrone Acet-Ethinyl Est 1-20 MG-MCG Norethindro ne Acet-Ethinyl Est 1-20 MG-MCG 09/02/2020 12:00:00 AM EDT 1.0 {tablet} activ e Norethindrone Acet-Ethinyl Est 1-20 MG-MCG eCW1 ([facility]) Norethindrone Acet-Ethinyl Est 1-20 MG-MCG Norethindro ne Acet-Ethinyl Est 1-20 MG-MCG 09/02/2020 12:00:00 AM EDT 1.0 {tablet} activ e Norethindrone Acet-Ethinyl Est 1-20 MG-MCG eCW1 ([facility]) Norethindrone Acet-Ethinyl Est 1-20 MG-MCG Norethindro ne Acet-Ethinyl Est 1-20 MG-MCG 09/02/2020 12:00:00 AM EDT 1.0 {tablet} activ e Norethindrone Acet-Ethinyl Est 1-20 MG-MCG eCW1 ([facility]) Norethindrone Acet-Ethinyl Est 1-20 MG-MCG Norethindro ne Acet-Ethinyl Est 1-20 MG-MCG 09/02/2020 12:00:00 AM EDT 1.0 {tablet} activ e Norethindrone Acet-Ethinyl Est 1-20 MG-MCG eCW1 ([facility]) Norethindrone Acet-Ethinyl Est 1-20 MG-MCG Norethindro ne Acet-Ethinyl Est 1-20 MG-MCG 09/02/2020 12:00:00 AM EDT 1.0 {tablet} activ e Norethindrone Acet-Ethinyl Est 1-20 MG-MCG eCW1 ([facility]) Norethindrone Acet-Ethinyl Est 1-20 MG-MCG Norethindro ne Acet-Ethinyl Est 1-20 MG-MCG 09/02/2020 12:00:00 AM EDT 1.0 {tablet} activ e Norethindrone Acet-Ethinyl Est 1-20 MG-MCG eCW1 ([facility]) Norethindrone Acet-Ethinyl Est 1-20 MG-MCG Norethindro ne Acet-Ethinyl Est 1-20 MG-MCG 09/02/2020 12:00:00 AM EDT 1.0 {tablet} activ e Norethindrone Acet-Ethinyl Est 1-20 MG-MCG eCW1 ([facility]) Norethindrone Acet-Ethinyl Est 1-20 MG-MCG Norethindro ne Acet-Ethinyl Est 1-20 MG-MCG 09/02/2020 12:00:00 AM EDT 1.0 {tablet} activ e Norethindrone Acet-Ethinyl Est 1-20 MG-MCG eCW1 ([facility]) Norethindrone Acet-Ethinyl Est 1-20 MG-MCG Norethindro ne Acet-Ethinyl Est 1-20 MG-MCG 09/02/2020 12:00:00 AM EDT 1.0 {tablet} activ e Norethindrone Acet-Ethinyl Est 1-20 MG-MCG eCW1 ([facility]) Norethindrone Acet-Ethinyl Est 1-20 MG-MCG Norethindro ne Acet-Ethinyl Est 1-20 MG-MCG 09/02/2020 12:00:00 AM EDT 1.0 {tablet} activ e Norethindrone Acet-Ethinyl Est 1-20 MG-MCG eCW1 ([facility]) Norethindrone Acet-Ethinyl Est 1-20 MG-MCG Norethindro ne Acet-Ethinyl Est 1-20 MG-MCG 09/02/2020 12:00:00 AM EDT 1.0 {tablet} activ e Norethindrone Acet-Ethinyl Est 1-20 MG-MCG eCW1 ([facility]) Norethindrone Acet-Ethinyl Est 1-20 MG-MCG Norethindro ne Acet-Ethinyl Est 1-20 MG-MCG 09/02/2020 12:00:00 AM EDT 1.0 {tablet} activ e Norethindrone Acet-Ethinyl Est 1-20 MG-MCG eCW1 ([facility]) Norethindrone Acet-Ethinyl Est 1-20 MG-MCG Norethindro ne Acet-Ethinyl Est 1-20 MG-MCG 09/02/2020 12:00:00 AM EDT 1.0 {tablet} activ e Norethindrone Acet-Ethinyl Est 1-20 MG-MCG eCW1 ([facility]) Norethindrone Acet-Ethinyl Est 1-20 MG-MCG Norethindro ne Acet-Ethinyl Est 1-20 MG-MCG 09/02/2020 12:00:00 AM EDT 1.0 {tablet} activ e Norethindrone Acet-Ethinyl Est 1-20 MG-MCG eCW1 ([facility]) Norethindrone Acet-Ethinyl Est 1-20 MG-MCG Norethindro ne Acet-Ethinyl Est 1-20 MG-MCG 09/02/2020 12:00:00 AM EDT 1.0 {tablet} activ e Norethindrone Acet-Ethinyl Est 1-20 MG-MCG eCW1 ([facility]) Norethindrone Acet-Ethinyl Est 1-20 MG-MCG Norethindro ne Acet-Ethinyl Est 1-20 MG-MCG 09/02/2020 12:00:00 AM EDT 1.0 {tablet} activ e Norethindrone Acet-Ethinyl Est 1-20 MG-MCG eCW1 ([facility]) Aimovig Aimovig 08/26/2020 12:00:00 AM EDT SUBCUTANEOUS completed MEDENT ([facility]) Emgality Emgality 08/26/2020 12:00:00 AM EDT SUBCUTANEOUS active MEDENT ([facility]) 20 mg 08/20/2020 12:00:00 [...] IMUM DAILY DOSE = 2 SOLD: 07/22/2020 [facility] Amphetamine aspartate 5 MG / Amphetamine Sulfate 5 MG / Dextroamphetamine saccharate 5 MG / Dextroamphetamine Sulfate 5 MG Oral Tablet [Adderall] Adderall 20 MG Adderall 20 MG 07/19/2020 12:00:00 AM EST a ctive Adderall 20 MG eCW1 ([facility]) Amphetamine aspartate 5 MG / Amphetamine Sulfate 5 MG / Dextroamphetamine saccharate 5 MG / Dextroamphetamine Sulfate 5 MG Oral Tablet [Adderall] Adderall 20 MG Adderall 20 MG 07/19/2020 12:00:00 AM EST a ctive Adderall 20 MG eCW1 ([facility]) Amphetamine aspartate 5 MG / Amphetamine Sulfate 5 MG / Dextroamphetamine saccharate 5 MG / Dextroamphetamine Sulfate 5 MG Oral Tablet [Adderall] Adderall 20 MG Adderall 20 MG 07/19/2020 12:00:00 AM EST a ctive Adderall 20 MG eCW1 ([facility]) Amphetamine aspartate 5 MG / Amphetamine Sulfate 5 MG / Dextroamphetamine saccharate 5 MG / Dextroamphetamine Sulfate 5 MG Oral Tablet [Adderall] Adderall 20 MG Adderall 20 MG 07/19/2020 12:00:00 AM EST a ctive Adderall 20 MG eCW1 ([facility]) Amphetamine aspartate 5 MG / Amphetamine Sulfate 5 MG / Dextroamphetamine saccharate 5 MG / Dextroamphetamine Sulfate 5 MG Oral Tablet [Adderall] Adderall 20 MG Adderall 20 MG 07/19/2020 12:00:00 AM EST a ctive Adderall 20 MG eCW1 ([facility]) Amphetamine aspartate 5 MG / Amphetamine Sulfate 5 MG / Dextroamphetamine saccharate 5 MG / Dextroamphetamine Sulfate 5 MG Oral Tablet [Adderall] Adderall 20 MG Adderall 20 MG 07/19/2020 12:00:00 AM EST a ctive Adderall 20 MG eCW1 ([facility]) Amphetamine aspartate 5 MG / Amphetamine Sulfate 5 MG / Dextroamphetamine saccharate 5 MG / Dextroamphetamine Sulfate 5 MG Oral Tablet [Adderall] Adderall 20 MG Adderall 20 MG 07/19/2020 12:00:00 AM EST a ctive Adderall 20 MG eCW1 ([facility]) Amphetamine aspartate 5 MG / Amphetamine [...] EST a ctive Adderall 20 MG eCW1 ([facility]) 40 mg 05/29/2020 12:00:00 AM EST [...] HCL 05/28/2020 12:00:00 AM EST active MEDENT ([facility]) topiramate 25 MG Oral Tablet Topiramate 05/28/2020 12:00:00 AM EST completed MEDENT ([facility], ) 500 mg 05/16/2020 12:00:00 AM EST tablet [...] COMPLETING 5 DAYS OF ACYCLOVIR SOLD: 10/20/2020 [facility] 500 mg 05/16/2020 12:00:00 AM EST [...] EST a ctive Adderall 20 MG eCW1 ([facility]) Amphetamine aspartate 5 MG / Amphetamine Sulfate 5 MG / Dextroamphetamine saccharate 5 MG / Dextroamphetamine Sulfate 5 MG Oral Tablet [Adderall] Adderall 20 MG Adderall 20 MG 04/17/2020 12:00:00 AM EST a ctive Adderall 20 MG eCW1 ([facility]) Amphetamine aspartate 5 MG / Amphetamine Sulfate 5 MG / Dextroamphetamine saccharate 5 MG / Dextroamphetamine Sulfate 5 MG Oral Tablet [Adderall] Adderall 20 MG Adderall 20 MG 04/17/2020 12:00:00 AM EST a ctive Adderall 20 MG eCW1 ([facility]) Amphetamine aspartate 5 MG / Amphetamine Sulfate 5 MG / Dextroamphetamine saccharate 5 MG / Dextroamphetamine Sulfate 5 MG Oral Tablet [Adderall] Adderall 20 MG Adderall 20 MG 04/17/2020 12:00:00 AM EST a ctive Adderall 20 MG eCW1 ([facility]) Amphetamine aspartate 5 MG / Amphetamine Sulfate 5 MG / Dextroamphetamine saccharate 5 MG / Dextroamphetamine Sulfate 5 MG Oral Tablet [Adderall] Adderall 20 MG Adderall 20 MG 04/17/2020 12:00:00 AM EST a ctive Adderall 20 MG eCW1 ([facility]) 20 mg 03/19/2020 12:00:00 AM EDT [...] MOUTH EVERY DAY SOLD: 03/24/2020 [facility] 20 mg 03/15/2020 12:00:00 AM EDT tablet [...] DAYS OF ACYCLOVIR SOLD: 03/24/2020 [facility] Metformin hydrochloride 500 MG Oral Tablet METFORMIN HCL 02/09/2020 12:00:00 AM EDT tablet 60 TAKE ONE TABLET BY MOUTH TWI CE A DAY WITH MEALS TAKE ONE TABLET BY MOUTH TWICE A DAY WITH MEALS SOLD: 09/20/2020 [facility] Metformin hydrochloride 500 MG Oral [...] DAY WITH MEALS SOLD: 03/24/2020 [facility] 25 mg 02/09/2020 12:00:00 AM [...] DAY WITH MEALS SOLD: 06/06/2020 [facility] Insurance Providers Payer name Policy type / Coverage type Policy ID Covered libertarian ID Covered libertarian's relationship to alberto Policy Alberto Plan Information [facility] PL[facility] [id number] SP [id number] [facility] Primary [id number] MEDICAID GME [id number] S [id number] [facility] HEA [id number] S [id number] HEA [id number] SELF PAY ONLY [id number] SP [id number] [facility] O [id number] S [id number] EMEDNY [id number] SP [id number] MEDICAID [id number] SP [id number] UN COMMUNITY PLAN MCDO UN SP UN ANSI-Medicaid [id number] ANSI-Medicaid [id number] ANSI-Medicaid [id number] ANSI-Medicaid [id number] ANSI-Medicaid [id number] ANSI-Medicaid [id number] ANSI-Medicaid [id number] ANSI-Medicaid [id number] ANSI-Medicaid [id number] ANSI-Medicaid [id number] ANSI-Medicaid [id number] ANSI-Medicaid [id number] [facility] Health Maintenance Organization ([facility]) [id number] Self [id number] ANSI-Medicaid [id number] ANSI-Medicaid [id number] ANSI-Medicaid [id number] ANSI-Medicaid [id number] ANSI-Medicaid [id number] ANSI-Medicaid [id number] ANSI-Medicaid [id number] ANSI-Medicaid [id number] ANSI-Medicaid [id number] ANSI-Medicaid [id number] ANSI-Medicaid [id number] ANSI-Medicaid [id number] ANSI-Medicaid [id number] ANSI-Medicaid [id number] ANSI-Medicaid [id number] ANSI-Medicaid [id number] ANSI-Medicaid [id number] ANSI-Medicaid [id number] ANSI-Medicaid [id number] ANSI-Medicaid [id number] ANSI-Medicaid [id number] ANSI-Medicaid [id number] ANSI-Medicaid [id number] ANSI-Medicaid [id number] ANSI-Medicaid [id number] ANSI-Medicaid [id number] ANSI-Medicaid [id number] ANSI-Medicaid [id number] ANSI-Medicaid [id number] ANSI-Medicaid [id number] ANSI-Medicaid [id number] ANSI-Medicaid [id number] ANSI-Medicaid [id number] ANSI-Medicaid [id number] ANSI-Medicaid [id number] ANSI-Medicaid [id number] ANSI-Medicaid [id number] ANSI-Medicaid [id number] ANSI-Medicaid [id number] ANSI-Medicaid [id number] MEDICAID [id number] SP [id number] MEDICAID M [id number] S [id number] [facility] Health Maintenance Organization (O) [id number] Self [id number] [facility] COMMUNITY PLAN [facility] [id number] SP [id number] [facility] Health Maintenance Organization (O) [id number] Self [id number] [facility]UN[facility] [id number] SP [id number] [facility] Health Maintenance Organization (O) [id number] Self [id number] SELF PAY UNAVAILABLE SP UNAVAILA BLE [facility] [id number] SP [id number] [facility] [id number] SP [id number] [facility] [id number] [facility] [id number] [facility] [id number] SP [id number] [facility] [id number] MD [id number] [facility] Maintenance Organization ([facility]) [id number] Self [id number] [facility] PLAN MCDO UNAVAILABLE SP UNAVAILABLE [facility] Maintenance [facility] ([facility]) [id number] Self [facility] COMMUNITY PLAN [facility] [id number] SP [id number] [facility] [id number] SP [id number] Problems, Conditions, and Diagnoses Code Display Name Description Problem Type Effective Dates Data Source(s) Q28.2 Arteriovenous malformation of cerebral v essels Arteriovenous malformation of cerebral vessels Diagnosis 01/16/2021 12:00:00 AM EDT [facility] 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/2021 12: 00:00 AM EDT eCW1 ([facility]) I63.89 [id number] 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 Problem 12/02/2020 12:00:00 AM EDT eCW1 ([facility]) G62.9 [id number] Neuropathy Problem 11/22/2020 12:00:00 AM ED T eCW1 ([facility]) R20.2 84371913 Paresthesias Problem 11/01/2020 12:00:00 AM EDT eCW1 ([facility]) Q27.30 [id number] Arteriovenous malformation Problem 12:00:00 AM EDT eCW1 ([facility]) 24699604 Migraine Migraine Problem 05/28/2020 12:00:00 AM GINO LESTER ([facility] ) Surgeries/Procedures Procedure Description Date Indications Data Source(s) OFFICE OUTPATIENT VISIT 15 MINUTES 04/01/2021 12:00:00 AM EDT TAYLER ([facility], ) OFFICE OUTPATIENT NEW 30 MINUTES 03/12/2021 12:00:00 A M EDT MEDENT ([facility] ) OFFICE OUTPATIENT VISIT 25 MINUTES 03/06/2021 12:00:00 AM EDT MEDENT ([facility] ) OFFICE OUTPATIENT VISIT 25 MINUTES 12/31/2020 12:00:00 AM EDT MEDENT ([facility]) OFFICE OUTPATIENT VISIT 40 MINUTES 11/29/2020 12:00:00 AM EDT MEDENT ([facility]) OFFICE OUTPATIENT VISIT 25 MINUTES 11/21/2020 12:00:00 AM EDT MEDENT ([facility] ) SBSQ OBSERVATION CARE/DAY LOW SEVERITY 11/17/2020 12:0 0:00 AM EDT MEDENT ([facility]) INITIAL OBSERVATION CARE/DAY MODERATE SEVERITY 12:00:00 AM EDT MEDENT ([facility]) HOSPITAL DISCHARGE DAY MANAGEMENT > 30 MIN 10/27/2020 12:00:00 AM EDT MEDENT ([facility]) SBSQ HOSPITAL CARE/DAY 25 MINUTES 10/26/2020 12:00:00 AM EDT MEDENT ([facility]) Vertebral Artery Catheter Placement 10/25/2020 12:00:0 0 AM EDT MEDENT ([facility]) Each Intracranial Branch Of The Internal Corotid/Vertebral 10/25/2020 12:00:00 AM EDT MEDENT ([facility]) Moderate Sedation Services; Same Phys Intl 15 Mins; PT >= 5 Years 10/25/2020 12:00:00 AM EDT MEDENT ([facility]) OFFICE OUTPATIENT VISIT 25 MINUTES 10/01/2020 12:00:00 AM EDT MEDENT ([facility]) HOSPITAL DISCHARGE DAY MANAGEMENT > 30 MIN 09/10/2020 12:00:00 AM EDT MEDENT ([facility]) Moderate Sedation Services; Same Phys Intl 15 Mins; PT >= 5 Years 09/09/2020 12:00:00 AM EDT MED[facility] ([facility]) Transcatheter Therapy Embolization Any Method 09/10/19 12:00:00 AM EDT MEDENT ([facility]) Transcatheter Permanent Occlusion/Embolization Percutaneous ULTRASONIC SEAMING MACHINE OPERATOR 09/09/2020 12:00:00 AM EDT MEDENT ([facility]) Catheter Placement Arterial System Addtl 2ND Ord/3RD Ord Tho r/BRC 09/09/2020 12:00:00 AM EDT MEDENT ([facility]) Catheter Placement Arterial System Init 3RD Ord Thoracic/Bra chioc 09/09/2020 12:00:00 AM EDT MEDENT ([facility]) ANGRPH CATH F-UP STD TCAT THER EMBOLIZATION/NFS 2020 12:00:00 AM EDT MEDENT ([facility]) OFFICE OUTPATIENT VISIT 40 MINUTES 08/23/2020 12:00:00 AM EST MEDENT ([facility]) TOBACCO USE CESSATION INTERMEDIATE 3-10 MINUTES 2020 12:00:00 AM EST MEDENT ([facility]) Angiography Internal Corotid Of The Ipsil Intrac Circulation 08/15/2020 12:00:00 AM EST [facility] ([facility]) Vertebral Artery Catheter Placement 08/15/2020 12:00:0 0 AM EST MEDENT ([facility]) External Artery Carotid Cath PLMNT 08/15/2020 12:00:00 AM EST MEDENT ([facility]) Moderate Sedation Services; Same Phys Intl 15 Mins; PT >= 5 Years 08/15/2020 12:00:00 AM EST [facility] ([facility]) OFFICE OUTPATIENT NEW 45 MINUTES 08/07/2020 12:00:00 A M EST MEDENT ([facility]) TOBACCO USE CESSATION INTERMEDIATE 3-10 MINUTES 2020 12:00:00 AM EST MEDENT ([facility]) Magnetic Resonance Angiogtaphy Head W/O Contrast Material(S) 06/18/2020 12:00:00 AM EST MEDENT ([facility]) Magnetic Resonance Angiogtaphy Head W/O Contrast Material(S) 06/18/2020 12:00:00 AM EST MEDENT ([facility]) Results ID Date Data Source [id number] 03/04/2021 12:00:00 AM EDT [facility] Name Value Range Interpretation Code Description Data Carolann rce(s) Supporting Document(s) SARS-CoV2 Rapid Antigen Negative [facility] This lab was reported [facility] ID Date Data Source [id number] 01/20/2021 01:06:12 PM EDT [facility] Name Value Range Interpretation Code Description Data Carolann rce(s) Supporting Document(s) RT - Initial Consult Visit JORGE v1 [facility] FZQYOf3rGoEMCiTem3siQUmjPUCfq3VzVPf0ZO7VX685wKK3rEnsfWIfyWDiWfg0WHdhTcPmgEW2rymQ tKQ [file] cx5Erbrk4oFkB19khRrXQG568tfVJ4aq9/xVZp6StpC704++aH/jwEFnE5duUr02WiS35ziyFkCwh+ROW BOSS HOEING [file] TeakMvc1Xz5Z24JwSFQAESYX3NqETLGjTk2D68bj7879wsH1rf4N5j/P6V/Mary Ann/hrTpTgu8NqSeuNr4 zl3xjP1VyWJQntE2/nugIWL3tEdjL+BFY+viv4z/bDU45etx95vAtj2Z9YCQ0s1sEHl2mE0ZFsEo1+Ea hVlxVFy5UIIBw91X4jCRpD6G3yRjINt8AomHTNPW+K uF/scATIE+A9D3QEDrP/s3BGXqg+MSRRQqWAjF8X842VixMnmUuM589IRfnhuA7aTSUHTDQOVc7pin/H vOa4W7V5qBauufQxBssasFwAw1pRyTaCHf9HiV6Mcz9eGniOlP5F3FzEcUVG9XkAVw4TE6boSK27j69q j2+U0raCP2Mr3JxCGzG4MYCYkwX+Mr0F7R+NN9frQk 4w/GG/yrOq+NKWMDeSZEuGONbggOwr5Z3GRAAJ9VwxntE3uf/CipKRkhhhIwygnGXdiGuoih7Ej/Glsn 93tF0H49WcrZ6sSFF8iKbnXpG2Y/a2aOoyN5yhYM3PjytXgkP9Z7YhcS6KMSJJYj9dpgVTMd9jBsR2X4 HXixI+7Ursf1asDV+qwR7gQ+/Q4NoR+hHrzy8HO+Ea H9wzmMQP7lxl9ZRDMMW0HRyVc4JEuD6neLyyFGwXpZdEBtxQ2TEr1bT7H0CmPG8KEx+Sfi3/AIv84/QZ henry+V+lFwNuTdxjKYPO9/7b+p4UnGV7N7gk7O/wR2OrkB31iNyM9+UQkQBQYfE4LCeI9tFi3kFKix2fwI IHOGkPYPqyyObhboCsnnzpK0cOgizlYf8bhhdsmtU/ [file] VoLZEGRNwmPy1rzZAgAVWdIl1LV6RcowJhAeuJBo 4+XTkLWrW3MWC9eMEfEr0VNPS1AWv6DFrrDUSCYk2H ID Date Data Source [id number] 11/29/2020 03:46:00 PM EDT Magnetic Diag nostic [...] appear unremarkable. IMPRESSION: Since 11/17/2020, Status post [place] embolization of left cerebellar AVM, with expected postoperative changes. 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 D7 Name Value Range Interpretation Code Description Data Carolann rce(s) Supporting Document(s) ID Date Data Source [id number] 11/17/2020 09:19:00 AM EDT [facility] DATE OF EXAM: 11/17/2020XAM: CT Head wi thout contrast INDICATION: Follow-up [...] the left midbrain. Professional interpretation performed at [facility] .End of diagnostic report for accession: [id number] Interpreted: Génesis Andrews MDTranscribed: 11/17/2020 09:17 AMSigned: 11/17/2020 09:19 AM Génesis Andrews MD [facility] # [id number] [facility] # [id number] Name Value Range Interpretation Code Description Data Carolann rce(s) Supporting Document(s) ID Date Data Source [id number] 11/16/2020 09:21:00 AM EDT [facility] Name Value Range Interpretation Code Description Data Carolann e(s) Supporting Document(s) SODIUM 141 mmol/L (136-145) [facility] POTASSIUM 4.0 mmol/L (3.6-5.2) [facility] CHLORIDE 106 mmol/L (100-108) [facility] CO2 27 mmol/L (22-31) [facility] ANION GAP 8 mmol/L (7-16) [facility] UREA NITROGEN 19 mg/dL (7-24) [facility] CREATININE 0.95 mg/dL (0.60-1.00) [facility] BUN/CREAT RATIO 20.0 RATIO (10.0-20.0) [facility] GLUCOSE 142 mg/dL (70-99) H [facility] CALCIUM 8.4 mg/dL (8.4-10.2) [facility] GFR >60 ml/min/1.73m2 (>59) [facility] GFR ( AMER) >60 ml/min/1.73m2 (>59) [facility] GFR INTERPRETATION [facility] --NORMAL KIDNEY FUNCTION OR MILD DISEASE - GFR >OR= 60CHRONIC KIDNEY DISEASE - GFR 15 - 59RENAL FAILURE - GFR <15 Est. GFR calculation based on the MDRDstudy equation, which assumes a steadystate for creatinine. Est. GFR should notbe used for medication dosing. ID Date Data Source [id number] 11/16/2020 09:19:10 AM EDT [facility] Name Value Range Interpretation Code Description Data Carloann rce(s) Supporting Document(s) WBC 10.2 10*3/uL (4.1-11.0) [facility] RBC 4.03 10*6/uL (4.00-5.40) [facility] HGB 11.9 g/dL (12.0-16.0) L [facility] HCT 36.0 % (36.0-47.0) [facility] MCV 89.2 fL (80.0-95.0) [facility] MCH 29.4 pg (27.0-32.0) [facility] MCHC 32.9 g/dL (32.0-36.0) [facility] RDW 13.9 % (10.5-14.5) [facility] PLT 279 10*3/uL (150-450) [facility] MPV 8.0 fL (7.1-10.7) [facility] NEUT % 65.8 % (35.0-75.0) [facility] LYMPH % 24.5 % (16.0-52.0) [facility] MONO % 7.1 % (0.0-8.0) [facility] EOS % 2.0 % (0.0-5.0) [facility] BASO % 0.6 % (0.0-4.0) [facility] NEUT # 6.7 10*3/uL (1.8-7.7) [facility] LYMPH # 2.5 10*3/uL (1.2-4.8) [facility] MONO # 0.7 10*3/uL (0.0-0.8) [facility] Eosinophils [#/volume] in Blood by Automated count 0.2 10*3/uL (0.0-0 .5) [facility] BASO # 0.1 10*3/uL (0.0-0.2) [facility] ID Date Data Source [id number] 11/16/2020 09:26:11 AM EDT [facility] Name Value Range Interpretation Code Description Data Carolann rce(s) Supporting Document(s) URINE WBC (0-5) [facility] URINE RBC (0-2) [facility] EPITHELIAL CELLS 2+ [HPF] [facility] BACTERIA 1+ [HPF] [facility] MUCUS 1+ [HPF] [facility] AMORPHOUS 1+ [HPF] [facility] ID Date Data Source [id number] 11/16/2020 09:10:30 AM EDT [facility] Name Value Range Interpretation Code Description Data Carolann rce(s) Supporting Document(s) COLOR [facility] APPEARANCE [facility] SPEC GRAV URINE 1.033 (1.003-1.030) H [facility] PH URINE 5.0 (5.0-7.5) [facility] LEUK ESTERASE 1+ (NEG) A [facility] NITRITE URINE (NEG) [facility] PROTEIN URINE (NEG) [facility] GLUCOSE URINE (NEG) [facility] KETONE URINE (NEG) [facility] UROBILINOGEN 0.2 mg/dL (0-1.0) [facility] BILIRUBIN URINE (NEG) [facility] BLOOD/HGB URINE (NEG) [facility] ID Date Data Source [id number] 11/16/2020 01:37:00 AM EDT [facility] Name Value Range Interpretation Code Description Data Carolann rce(s) Supporting Document(s) SARS coronavirus 2 RNA [Presence] in Res piratory specimen by REYNALDO with probe detection NEGATIVE [facility] This lab was ordered by [facility] a nd reported by [facility]. ID Date Data Source [id number] 10/26/2020 11:13:21 PM EDT [facility] Name Value Range Interpretation Code Description Data Carolann rce(s) Supporting Document(s) POC GLUCOSE 141 mg/dL (70-99) H [facility] NOTIFIED NURSEPERFORMED BY CLINICAL S TAFF ID Date Data Source [id number] 10/26/2020 07:30:37 AM EDT [facility] Name Value Range Interpretation Code Description Data Carolann rce(s) Supporting Document(s) POC GLUCOSE 134 mg/dL (70-99) H [facility] NOTIFIED NURSEPERFORMED BY JUDY CLEVELAND ID Date Data Source [id number] 10/26/2020 08:05:00 AM EDT [facility] DATE OF EXAM: 10/26/2020XAM: CT Head WO [...] change. A contemporaneous report was provided by [facility] at the time of this examination, reporting similar findings. Professional interpretation performed at [facility] .End of diagnostic report for accession: [id number] Interpreted: Francisca Retana MDTranscribed: 10/26/2020 08:00 AMSigned: 10/26/2020 08:05 AM Francisca Retana MD [facility] ACC # [id number] BILL # [id number] Name Value Range Interpretation Code Description Data Carolann rce(s) Supporting Document(s) ID Date Data Source [id number] 10/26/2020 03:05:23 AM EDT [facility] Name Value Range Interpretation Code Description Data Carolann rce(s) Supporting Document(s) CALCIUM IONIZED 5.08 mg/dL (4.64-5.28) [facility] IONIZED CALCIUM NORMALIZED TO PH 7.40 AN D 37 DEGREES C. ID Date Data Source [id number] 10/26/2020 03:03:27 AM EDT [facility] Name Value Range Interpretation Code Description Data Carolann rce(s) Supporting Document(s) PHOSPHORUS 2.9 mg/dL (2.5-4.5) [facility] ID Date Data Source [id number] 10/26/2020 03:03:27 AM EDT [facility] Name Value Range Interpretation Code Description Data Carolann rce(s) Supporting Document(s) MAGNESIUM 1.8 mg/dL (1.7-2.4) [facility] ID Date Data Source [id number] 10/26/2020 03:03:27 AM EDT [facility] Name Value Range Interpretation Code Description Data Carolann rce(s) Supporting Document(s) SODIUM 144 mmol/L (136-145) [facility] POTASSIUM 3.8 mmol/L (3.6-5.2) [facility] CHLORIDE 111 mmol/L (100-108) H [facility] CO2 27 mmol/L (22-31) [facility] ANION GAP 6 mmol/L (7-16) L [facility] UREA NITROGEN 9 mg/dL (7-24) [facility] CREATININE 0.98 mg/dL (0.60-1.00) [facility] BUN/CREAT RATIO 9.2 RATIO (10.0-20.0) L [facility] GLUCOSE 122 mg/dL (70-99) H [facility] CALCIUM 7.8 mg/dL (8.4-10.2) L [facility] GFR >60 ml/min/1.73m2 (>59) [facility] GFR ( AMER) >60 ml/min/1.73m2 (>59) [facility] GFR INTERPRETATION [facility] --NORMAL KIDNEY FUNCTION OR MILD DISEASE - GFR >OR= 60CHRONIC KIDNEY DISEASE - GFR 15 - 59RENAL FAILURE - GFR <15 Est. GFR calculation based on the MDRDstudy equation, which assumes a steadystate for creatinine. Est. GFR should notbe used for medication dosing. ID Date Data Source [id number] 10/26/2020 02:37:20 AM EDT [facility] Name Value Range Interpretation Code Description Data Carolann rce(s) Supporting Document(s) WBC 11.9 10*3/uL (4.1-11.0) H [facility] RBC 4.13 10*6/uL (4.00-5.40) [facility] HGB 12.2 g/dL (12.0-16.0) [facility] HCT 36.6 % (36.0-47.0) [facility] MCV 88.7 fL (80.0-95.0) [facility] MCH 29.6 pg (27.0-32.0) [facility] MCHC 33.4 g/dL (32.0-36.0) [facility] RDW 12.9 % (10.5-14.5) [facility] PLT 243 10*3/uL (150-450) [facility] MPV 8.3 fL (7.1-10.7) [facility] ID Date Data Source [id number] 10/25/2020 07:15:00 PM EDT [facility] DATE OF EXAM: 10/25/2020T HEAD [...] midbrain. L2End of diagnostic report for accession: [id number] Interpreted: Hellen Mendieta DOTranscribed: 10/25/2020 07:12 PMSigned: 10/25/2020 07:15 PM Hellen Mendieta DO ----- [facility] ACC # [id number] BILL # [id number] Name Value Range Interpretation Code Description Data Carolann rce(s) Supporting Document(s) ID Date Data Source [id number] 10/25/2020 01:07:00 PM EDT [facility] DATE OF EXAM: 10/25/2020XAM: CT Head wi [...] contrast and hemorrhage. Professional interpretation performed at [facility] .End of diagnostic report for accession: [id number] Interpreted: Génesis Andrews MDTranscribed: 10/25/2020 01:03 PMSigned: 10/25/2020 01:07 PM Génesis Andrews MD [facility] ACC # [id number] BILL # [id number] Name Value Range Interpretation Code Description Data Carolann rce(s) Supporting Document(s) ID Date Data Source [id number] 10/30/2020 03:25:00 PM EDT [facility] DATE OF EXAM: 10/25/2020ate of Procedur e: 10/25/2020reoperative Diagnosis: Left cerebellar AVMPostoperative Diagnosis: Left cerebellar AVM Procedure(s):1. Diagnostic cerebral angiogram: - Left subclavian cervical (2D); Left vertebral cervical/cerebral (2D); Left PICA, PRODUCTION MACHINIST and SCA superselective microcatheter cerebral (2D); Right femoral runoff (2D)2. Conscious sedation for 42 minutes3. Right femoral 6/7F Mynx Slubber Operator closure device placed for arteriotomy closure Surgeon: [...] comparing the signed consent with the name phamcelet to confirm the proper medical record number, date of , and patient name and when this was confirmed the patient was placed on the [employer] biplane angio table in supine position. The [...] the modified Seldinger technique with a 5 Israeli micropuncture kit. I then placed a 6 Israeli sheath into the right femoral artery without any complications or difficulties. I then placed the 5 Israeli angled glide catheter over a glide wire [...] the left vertebral artery injection shows an Deadwood glue cast in the left superior cerebellum and there is a very trace amount of early venous drainage, with a small supplying vessel from either the PRODUCTION MACHINIST, SCA or PICA. I then selectively catheterized these vessels with an Eschelon-10 microcatheter over a Fathom-14 microwire, and the left PICA appeared to not have any branches supplying the AVM, but rather appeared generally normal. The left PRODUCTION MACHINIST initial run appeared to fill a small payroll accounting specialist branch with drainage to the vein of [...] pulled the microcatheter to the proximal left PRODUCTION MACHINIST and a run from that superselective microcatheter cerebral angiogram run showed that there was perhaps a very small questionable feeding branch to the AVM, but no significant early venous drainage was appreciated. Additionally, there was otherwise normal arterial branching pattern seen from the left PRODUCTION MACHINIST and no contrast extravasation or distal thromboembolic [...] located more superiorly as seen on the CZECH projection appears to supply all normal cerebellum. [...] site. I then placed a 6/7F Mynx Slubber Operator closure device in the right femoral arteriotomy [...] a small supplying vessel from either the PRODUCTION MACHINIST, SCA or PICA. Superselective microcatheter cerebral angiogram runs from the left PICA appeared to not have any branches supplying the AVM, but rather appeared generally normal. The left PRODUCTION MACHINIST initial run appeared to fill a small payroll accounting specialist branch with drainage to the vein of [...] up microcatheter run from the proximal left PRODUCTION MACHINIST showed that there was perhaps a very small questionable feeding branch to the AVM, but no significant early venous drainage was appreciated. Additionally, there was otherwise normal arterial branching pattern seen from the left PRODUCTION MACHINIST and no contrast extravasation or distal thromboembolic [...] located more superiorly as seen on the CZECH projection appears to supply all normal cerebellum. [...] AVM, and there was a small left PRODUCTION MACHINIST payroll accounting specialist rupture with contrast extravasation. The small left SCA branch is too distal and small to safely embolize and either surgical resection or Cyberknife stereotactic radiosurgery or possibly even transvenous embolization are options available for treating the residual AVM. The small payroll accounting specialist hemorrhage will likely resolve spontaneously, but because [...] this plan.End of diagnostic report for accession: [id number] Interpreted: Lexa Padilla MDTranscribed: 10/25/2020 12:58 PMSigned: 10/30/2020 03:25 PM Lexa Padilla MD [facility] ACC # [id number] BILL # [id number] [facility] Name Value Range Interpretation Code Description Data Carolann e(s) Supporting Document(s) ID Date Data Source [id number] 10/21/2020 02:00:00 PM EDT [facility] ([facility]) Name Value Range Interpretation Code Description Data Carolann rce(s) Supporting Document(s) Laboratory test finding (navigational concept) Laboratory test result [facility] ([facility]) ASSAY INFORMATION: Real Time RT-PCR NOTE: The COVID-19 assay has been cleared by the U.S. Food and Drug Administration under the Emergency Use Authorization (EUA). [employer] and [employer] are designated as high complexity laboratories by the Clinical Laboratory Improvement Amendments of 1988(CLIA) and are qualified to perform this test. Not Detected ID Date Data Source [id number] 10/21/2020 02:00:00 PM EDT [facility] Name Value Range Interpretation Code Description Data Carolann rce(s) Supporting Document(s) SARS-CoV-2 (COVID-19) RNA [Presence] in Respiratory specimen by REYNALDO with probe detection Not Detected [facility] This lab was ordered by [facility] and reported by [facility]. ID Date Data Source [id number] 10/08/2020 01:35:00 PM EDT [facility] ([facility]) Name Value Range Interpretation Code Description Data Carolann rce(s) Supporting Document(s) Glucose, Fasting 89 mg/dL 70-100 Normal (applies to non-numeric results) [facility] ([facility]) Blood Urea Nitrogen 11 mg/dL 7-18 Normal (applies to non-nume sumanth results) [facility] ([facility]) Glomerular Filtration Rate Laboratory test result Normal (applies to non- numeric results) [facility] ([facility]) <content>Units are mL/min/1.73 m2</content>
<content></content>
<content>Chronic Kidney Disease Staging per NKF:</content>
<content></content>
<content>Stage I & II GFR >=60 Normal to Mildly Decreased</content>
<content>Stage III GFR 30- 59 Moderately Decreased</content>
<content>Stage IV GFR 15-29 Severely Decreased</content>
<content>Stage V GFR <15 Very Little GFR Left</content>
<content>ESRD GFR <15 on GEARCASE ASSEMBLER</content>
<content></content> Creatinine For GFR 0.97 mg/dL 0.55-1.30 Normal (applies to non -numeric results) [facility]) Sodium Level 139 meq/L 136-145 Normal (applies to non-numeric res ults) [facility]) Potassium Serum 3.9 meq/L 3.5-5.1 Normal (applies to non-numeric results) [facility]) Carbon Dioxide Level 25 meq/L 21-32 Normal (applies to non-num eri results) [facility]) Chloride Level 107 meq/L 98-107 Normal (applies to non-numeric r esults) [facility]) Calcium Level 8.8 mg/dL 8.5-10.1 Normal (applies to non-numeric re sults) [facility]) Anion Gap 7 meq/L 8-16 Below low normal [facility]) ID Date Data Source [id number] 10/08/2020 01:35:00 PM EDT [facility]) Name Value Range Interpretation Code Description Data Carolann rce(s) Supporting Document(s) Inr 0.90 Normal (applies to non-numeric resul ts) [facility]) THERAPUTIC HUMAN INR VALUES INDICATIONS NORMAL RANGES PROPHYLAXIS/TREATMENT OF: VENOUS THROMBOSIS 2.0-3.0 PULMONARY EMBOLISM 2.0-3.0 PREVENTION OF SYSTEMIC EMBOLISM FROM: TISSUE HEART VALVES 2.0-3.0 ACUTE MYOCARDIAL INFARCTION 2.0-3.0 VALVULAR HEART DISEASE 2.0-3.0 ATRIAL FIBRILLATION 2.0-3.0 MECHANICAL VALVES(HIGH RISK) 2.5-3.5 RECURRENT MYOCARDIAL INFARCTION 2.5-3.5 Prothrombin Time 12.3 s 12.5-14.3 Normal (applies to non-numeric results) [facility]) Partial Thromboplastin Time 20.8 s 24.2-38.[address] [facility]) ID Date Data Source [id number] 10/08/2020 01:35:00 PM EDT [facility]) Name Value Range Interpretation Code Description Data Carolann rce(s) Supporting Document(s) Hemoglobin 12.8 g/dL 12.0-15.5 Normal (applies to non-numeric resul ts) [facility]) White Blood Count 10.0 10 4.0-10.0 Normal (applies to non-numeri c results) [facility] ([facility]) Red Blood Count 4.42 10 4.00-5.40 Normal (applies to non-numeric results) [facility] ([facility]) Mean Corpuscular Volume 89.8 fl 80.0-96.0 Normal ( applies to non-numeric results) [facility] ([facility]) Hematocrit 39.7 % 36.0-47.0 Normal (applies to non-numeric resul ts) [facility] ([facility]) Mean Corpuscular Hemoglobin 29.0 pg 27.0-33.0 Norm al (applies to non-numeric results) [facility]) Mean Corpuscular HGB Conc 32.2 g/dL 32.0-36.5 Normal (applies to non-numeric results) [facility] ([facility]) Platelet Count, Automated 277 10 150-450 Normal (applies to non-numeric results) [facility] ([facility]) Red Cell Distribution Width 12.3 % 11.5-14.5 Norm al (applies to non-numeric results) [facility] ([facility]) Neutrophils % 62.6 % 36.0-66.0 Normal (applies to non-numeric re sults) [facility] ([facility]) Lymph % 28.5 % 24.0-44.0 Normal (applies to non-numeric resul ts) [facility] ([facility]) Baso % 0.7 % 0.0-1.0 Normal (applies to non-numeric resul ts) [facility] ([facility]) Eos % 1.9 % 0.0-3.0 Normal (applies to non-numeric resul ts) [facility] ([facility]) [place] % 5.9 % 2.0-8.0 Normal (applies to non-numeric resul ts) [facility] ([facility]) Nucleated Red Blood Cell % 0.0 % 0-0 Normal (applies to n on-numeric results) [facility] ([facility]) Immature Granulocyte % 0.4 % 0-3.0 Normal (applies to non-n umeric results) [facility] ([facility]) Lymph # 2.9 10 1.5-5.0 Normal (applies to non-numeric resul ts) [facility] ([facility]) Neutrophils # 6.3 10 1.5-8.5 Normal (applies to non-numeric re sults) [facility] ([facility]) Eos # 0.2 10 0.0-0.5 Normal (applies to non-numeric resul ts) [facility] ([facility]) [place] # 0.6 10 0.0-0.8 Normal (applies to non-numeric resul ts) [facility] ([facility]) Baso # 0.1 10 0.0-0.2 Normal (applies to non-numeric resul ts) [facility] ([facility]) ID Date Data Source [id number] 09/11/2020 09:35:00 AM EDT [facility] DATE OF EXAM: 09/09/2020ate of Procedur e: 09/09/2020reoperative Diagnosis: Left cerebellar AVMPostoperative Diagnosis: Left cerebellar AVM Procedure(s):1. Diagnostic cerebral angiogram: - Left subclavian cervical (2D); Left vertebral cervical/cerebral (2D); Left SCA superselective microcatheter cerebral (2D); Right femoral runoff (2D)2. Left SCA branch to AVM Brevital testing (3mg IA and testing over 5 minutes)3. Left SCA branch to AVM embolization with Deadwood 18 liquid embolic agent4. Conscious sedation for 45 minutes5. Right femoral 6/7F Mynx Slubber Operator closure device placed for arteriotomy closure Surgeon: Lexa Padilla, MDAssistant: Shantelle Vivas, RT Prior problems with sedation: NonePotential drug/sedative [...] endovascular intervention for Brevital testing and subsequent [place]al[place] liquid embolic material embolization of the AVM [...] comparing the signed consent with the name tawnya to confirm the proper medical record number, date of , and patient name and when this was confirmed the patient was placed on the [employer] biplane angio table in supine position. The [...] the modified Seldinger technique with a 5 Israeli micropuncture kit. I then placed a 6 Israeli sheath into the right femoral artery without any complications or difficulties. I then placed a 6 Israeli MPC Envoy catheter connected to continuous heparinized [...] branch was targeted for this intervention. The [place] microcatheter was advanced into the largest of [...] close to the nidus as possible. The [place] microcatheter was then flushed with at least 0.23 mL of DMSO to clear the catheter of any ionic material, and Deadwood 18 Liquid Embolic agent was then injected under double negative roadmap imaging taking great care to avoid reflux of the Deadwood liquid embolic agent more proximal than the [...] site. I then placed a 6/7F Mynx Slubber Operator closure device in the right femoral arteriotomy [...] well as 45 degree oblique projections after Deadwood 18 Liquid Embolic agent embolization of the [...] about 80-90% of the AVM embolized with Deadwood 18 embolization of a large feeding pedicle [...] this plan.End of diagnostic report for accession: [id number] Interpreted: Lexa Padilla MDTranscribed: 09/09/2020 09:52 AMSigned: 09/11/2020 09:35 AM Lexa Padilla MD [facility] ACC # [id number] BILL # [id number] Name Value Range Interpretation Code Description Data Carolann rce(s) Supporting Document(s) ID Date Data Source [id number] 09/09/2020 09:49:15 AM EDT [facility] Name Value Range Interpretation Code Description Data Carolann rce(s) Supporting Document(s) URINE HCG (NEG) Lab [facility] ID Date Data Source [id number] 09/04/2020 09:30:00 AM EDT [facility] ([facility]) Name Value Range Interpretation Code Description Data Carolann rce(s) Supporting Document(s) Laboratory test finding (navigational concept) Laboratory test result [facility] ([facility]) This nucleic acid amplification test was developed and its performance characteristics determined by [employer]. Nucleic acid amplification tests include RT- PCR [...] test finding (navigational concept) Laboratory test result [facility] ([facility]) Performed at: [facility] [address], [place] [id number] Computerized Machine Fabric Cutter: Christin Laurent PhD, Phone: [phone] Performed at: RN - [facility] [address] [id number] Computer[employer] Machine Fabric Cutter: Leslie Musa MD, Phone: [phone] Performed ID Date Data Source [id number] 09/04/2020 09:30:00 AM EDT [facility] Name Value Range Interpretation Code Description Data Carolann rce(s) Supporting Document(s) SARS coronavirus 2 RNA Not Detected [facility] This lab was ordered by [facility] and reported by [facility]. ID Date Data Source URINE TEST 09/02/2020 12:00:00 AM EDT eCW1 ([facility]) Name Value Range Interpretation Code Description Data Carolann rce(s) Supporting Document(s) NEGATIVE NEGATIVE URINE PREG TEST eCW1 ([facility]) ID Date Data Source UA URINALYSIS 09/02/2020 12:00:00 AM EDT eCW1 ([facility]) Name Value Range Interpretation Code Description Data Carolann rce(s) Supporting Document(s) UA URINALYSIS eCW1 ([facility]) ID Date Data Source PT-INR 09/02/2020 12:00:00 AM EDT eCW1 ([facility]) Name Value Range Interpretation Code Description Data Carolann rce(s) Supporting Document(s) Prothrombin time (PT) 12.2 12.5-14.3 PROTHROMBIN TI ME eCW1 ([facility]) INR in Platelet poor plasma by Coagulation assay 0.89 INR eCW1 ([facility]) ID Date Data Source Comprehensive Metabolic Profile (CMP) 09/02/2020 12:00:00 AM EDT eCW1 ([facility]) Name Value Range Interpretation Code Description Data Carolann rce(s) Supporting Document(s) 0.99 0.55-1.30 CREATININE FOR GFR eCW1 ([facility]) 89 70-100 GLUCOSE, FASTING eCW1 ([facility]) 15 7-18 BLOOD UREA NITROGEN eCW1 ([facility]) > 60.0 >60 GLOMERULAR FILTRATION RATE eCW 1 ([facility]) 106 98-107 CHLORIDE LEVEL eCW1 ([facility]) 4.1 3.5-5.1 POTASSIUM SERUM eCW1 ([facility]) 138 136-145 SODIUM LEVEL eCW1 ([facility]) 39 12-78 ALT/SGPT eCW1 ([facility]) 24 21-32 CARBON DIOXIDE LEVEL eCW1 ([facility]) 9.2 8.5-10.1 CALCIUM LEVEL eCW1 ([facility]) 21 7-37 AST/SGOT eCW1 ([facility]) 7.6 6.4-8.2 TOTAL PROTEIN eCW1 ([facility]) 4.0 3.2-5.2 ALBUMIN eCW1 ([facility]) 0.2 0.2-1.0 BILIRUBIN,TOTAL eCW1 ([facility]) 71 45-117 ALKALINE PHOSPHATASE eCW1 ([facility]) 1.1 1.2-2.2 ALBUMIN/GLOBULIN RATIO eCW1 ([facility]) ID Date Data Source CBC with Differential 09/02/2020 12:00:00 AM EDT eCW1 ([facility]) Name Value Range Interpretation Code Description Data Carolann rce(s) Supporting Document(s) 13.7 12.0-15.5 HEMOGLOBIN eCW1 ([facility]) 4.64 4.00-5.40 RED BLOOD COUNT eCW1 ([facility]) 10.1 4.0-10.0 WHITE BLOOD COUNT eCW1 ([facility]) 42.0 36.0-47.0 HEMATOCRIT eCW1 ([facility]) 29.5 27.0-33.0 MEAN CORPUSCULAR HEMOGLOB IN eCW1 ([facility]) 90.5 80.0-96.0 MEAN CORPUSCULAR VOLUME e CW1 ([facility]) 32.6 32.0-36.5 MEAN CORPUSCULAR HGB CONC eCW1 ([facility]) 12.4 11.5-14.5 RED CELL DISTRIBUTION WID TH eCW1 ([facility]) 64.2 36.0-66.0 NEUTROPHILS % eCW1 ([facility]) 25.9 24.0-44.0 LYMPH % eCW1 ([facility]) 291 150-450 PLATELET COUNT, AUTOMATED eCW1 ([facility]) 6.5 1.5-8.5 NEUTROPHILS # eCW1 ([facility]) 6.8 2.0-8.0 MONO % eCW1 ([facility]) 0.8 0.0-1.0 BASO % eCW1 ([facility]) 1.8 0.0-3.0 EOS % eCW1 ([facility]) 0.1 0.0-0.2 BASO # eCW1 ([facility]) 0.2 0.0-0.5 EOS # eCW1 ([facility]) 0.7 0.0-0.8 MONO # eCW1 ([facility]) 2.6 1.5-5.0 LYMPH # eCW1 ([facility]) ID Date Data Source [id number] 08/15/2020 11:26:00 AM EST [facility] DATE OF EXAM: 08/15/2020ate of Procedur e: 08/15/2020reoperative Diagnosis: Evaluate for left cerebellar AVMPostoperative Diagnosis: Evaluate for left cerebellar AVM Procedure(s):1. Diagnostic cerebral angiogram: - (2D); Right femoral runoff (2D)2. Conscious sedation for 21 minutes3. Right femoral 5/6F [employer] Slubber Operator closure device placed for arteriotomy closure Surgeon: Lexa Padilla MDAssistant: Jeramie Tran, Prior problems with sedation: NonePotential drug/sedative interactions: [...] confirmed the patient was placed on the [employer] biplane angio table in supine position. The [...] the modified Seldinger technique with a 5 Israeli micropuncture kit. I then placed a 5 Israeli sheath into the right femoral artery without any complications or difficulties. I then placed the 4 Israeli angled glide catheter over a glide wire [...] with normal anterograde filling to the left PRODUCTION MACHINIST territory. I then selectively catheterized the left [...] site. I then placed a 5/6F Mynx Slubber Operator closure device in the right femoral arteriotomy [...] with normal anterograde filling to the left PRODUCTION MACHINIST territory. 6. Selective left external carotid artery [...] this plan.End of diagnostic report for accession: [id number] Interpreted: Lexa Padilla MDTranscribed: 08/15/2020 10:34 AMSigned: 08/15/2020 11:26 AM Lexa Padilla MD [facility] ACC # [id number] BILL # [id number] NIRR Name Value Range Interpretation Code Description Data Carolann rce(s) Supporting Document(s) ID Date Data Source [id number] 08/15/2020 09:28:48 AM EST [facility] Name Value Range Interpretation Code Description Data Carolann rce(s) Supporting Document(s) POC GLUCOSE 96 mg/dL (70-99) [facility] PERFORMED BY CLINICAL STAFF ID Date Data Source [id number] 08/10/2020 10:00:00 AM EST MEDENT ([facility]) Name Value Range Interpretation Code Description Data Carolann rce(s) Supporting Document(s) Laboratory test finding (navigational concept) Laboratory test result MEDENT ([facility]) This nucleic acid amplification test was developed and its performance characteristics determined by [facility]. Nucleic acid amplification tests include RT- PCR [...] detected) result in this assay. Performed at: [facility] [address] [id number] Computer[employer] Machine Fabric Cutter: Leslie Musa MD, Phone: [phone] Not Detected ID Date Data Source [id number] 08/10/2020 10:00:00 AM EST [facility] Name Value Range Interpretation Code Description Data Carolann rce(s) Supporting Document(s) SARS coronavirus 2 RNA Not Detected [facility] This lab was ordered by [facility] and reported by [facility]. ID Date Data Source [id number] 08/07/2020 02:59:00 PM EST MEDENT ([facility]) Name Value Range Interpretation Code Description Data Carolann rce(s) Supporting Document(s) Venipuncture Laboratory test result MEDE NT ([facility]) aPTT in Platelet poor plasma by Coagulation assay 29.1 Sec 24.7-34. 7 MEDENT ([facility]) Note normal range update due to new reag ent lot 01/25/2020 ID Date Data Source [id number] 08/07/2020 02:59:00 PM EST MEDENT ([facility]) Name Value Range Interpretation Code Description Data Carolann rce(s) Supporting Document(s) Prothrombin time (PT) 12.0 Sec 10.9-14.5 MEDENT ( [facility]) INR in Platelet poor plasma by Coagulation assay 0.9 MEDENT ([facility]) [facility] and transmitted [address] 0[address] * INR Interpretation : . Recommended Theraputic Range: 2.0 - 3.0 . For treatment/prophylaxis . of venous thrombosis, . prevention of embolism. . . ID Date Data Source [id number] 08/07/2020 02:59:00 PM EST MEDENT ([facility]) Name Value Range Interpretation Code Description Data Carolann rce(s) Supporting Document(s) Choriogonadotropin.beta subunit [Moles/volume] in Seru m or Plasma Laboratory test result [facility] HCG Interpretation: Less Than [...] - Clinically significant. ID Date Data Source [id number] 08/07/2020 02:59:00 PM EST MEDENT ([facility]) Name Value Range Interpretation Code Description Data Carolann rce(s) Supporting Document(s) WBC. 12.60 x10E3/uL 4.2-12.0 Above high normal MED ENT ([facility]) Hematocrit [Volume Fraction] of Blood by Automated count 42.9 % 3 6-47 MEDENT ([facility]) Hemoglobin [Mass/volume] in Blood 14.0 g/dL 12.0-16.0 [facility] ([facility]) Erythrocytes [#/volume] in Blood by Automated count 4.70 x10E6/uL 3.9 -5.4 [facility] ([facility]) MCH 29.9 pg 27-33 [facility]) MCV 91.3 fL 80-98 [facility]) RDW 12.9 % 11.2-15.2 [facility] ([facility]) MCHC 32.7 g/dL 32-36 [facility]) Platelets [#/volume] in Blood by Automated count 280 x10E3/uL 135-420 [facility] ([facility]) % [place] 72.1 % 41.0-80.0 [facility]) MPV 7.2 fL 7.0-12.3 [facility] ([facility]) Eosinophils [#/volume] in Blood by Automated count 1.2 % 0.0-8.0 [facility] ([facility]) %Lym 22.2 % 10.0-45.2 [facility] ([facility]) %[place] 4.1 % 2.0-13.0 [facility] ([facility]) %Baso 0.5 % 0.0-3.0 [facility] ([facility]) Neut 9.1 x10E3/uL 2.0-8.1 Above high normal [facility] ([facility]) [place] 0.5 x10E3/uL 0.0-1.0 [facility]) Lymp 2.8 x10E3/uL 0.6-3.1 [facility]) Baso 0.1 x10E3/uL 0.0-0.2 [facility] ([facility]) Eos 0.2 x10E3/uL 0.0-0.6 [facility]) ID Date Data Source [id number] 08/07/2020 02:59:00 PM EST [facility] ([facility]) Name Value Range Interpretation Code Description Data Carolann rce(s) Supporting Document(s) Urea nitrogen [Moles/volume] in Serum or Plasma 13 mg/dL 6-20 [facility] ([facility]) Glucose [Mass/volume] in Serum or Plasma 91 mg/dL 74-106 [facility] ([facility]) [place] [employer] (ADA) Recommended Range is 65-99 mg/dL Sodium [Moles/volume] in Serum or Plasma 137 mmol/L 136-145 [facility] ([facility]) Creatinine [Mass/volume] in Serum or Plasma 1.0 mg/dL 0.5-1.3 [facility] ([facility]) Chloride [Moles/volume] in Serum or Plasma 104 mmol/L 98-107 [facility] ([facility]) Carbon dioxide, total [Moles/volume] in Serum or Plasma 26 meq/L 20 -31 [facility] ([facility]) Potassium [Moles/volume] in Serum or Plasma 4.1 mmol/L 3.5-5.3 [facility] ([facility]) eGFR-female 63 mL/m/1.73m [facility] ([facility]) Anion Gap 7 mmol/L 7-16 [facility]) eGFR-Aa female 76 mL/m/1.73m [facility] ([facility]) <content>Normal Kidney Function or Mild Disease GFR >59 mL/min/1.73m2</content>
<content>Chronic Kidney Disease GFR 15-59 mL/min/1.73m2</content>
<content>Renal Failure GFR <15 mL/min/1.73m2</content>
<content></content> Calcium [Mass/volume] in Serum or Plasma 8.9 mg/dL 8.9-10.5 MEDENT ([facility]) ID Date Data Source [id number] 05/22/2020 12:00:00 AM EST [facility] Name Value Range Interpretation Code Description Data Carolann rce(s) Supporting Document(s) 2019-nCoV RNA XXX REYNALDO+probe-Imp [facility] This lab was ordered by [facility] and reported by [facility]. Procedure Social History Code Duration Value Status Description Data Source(s ) Smoking 04/18/2021 12:00:00 AM EDT Current Smoker completed Curre nt Smoker eCW1 ([facility]) Smoking 04/18/2021 12:00:00 AM EDT Current Smoker completed Curre nt Smoker eCW1 ([facility]) Smoking 04/18/2021 12:00:00 AM EDT Current Smoker completed Curre nt Smoker eCW1 ([facility]) Smoking 04/18/2021 12:00:00 AM EDT Current Smoker completed Curre nt Smoker eCW1 ([facility]) Smoking 04/18/2021 12:00:00 AM EDT Current Smoker completed Curre nt Smoker eCW1 ([facility]) Smoking 04/18/2021 12:00:00 AM EDT Current Smoker completed Curre nt Smoker eCW1 ([facility]) Smoking 04/16/2021 12:00:00 AM EDT Current Smoker completed Curre nt Smoker eCW1 ([facility]) Smoking 04/02/2021 12:00:00 AM EDT Current Smoker completed Curre nt Smoker eCW1 ([facility]) Smoking 04/02/2021 12:00:00 AM EDT Current Smoker completed Curre nt Smoker eCW1 ([facility]) Smoking 03/12/2021 12:00:00 AM EDT Patient is a former smoker completed Patient is a former smoker MEDNIRAJ ([facility], ) Smoking 02/26/2021 12:00:00 AM EDT Current Smoker completed Curre nt Smoker eCW1 ([facility]) Smoking 02/26/2021 12:00:00 AM EDT Current Smoker completed Curre nt Smoker eCW1 ([facility]) Smoking 02/26/2021 12:00:00 AM EDT Current Smoker completed Curre nt Smoker eCW1 ([facility]) Smoking 02/26/2021 12:00:00 AM EDT Current Smoker completed Curre nt Smoker eCW1 ([facility]) Smoking 02/26/2021 12:00:00 AM EDT Current Smoker completed Curre nt Smoker eCW1 ([facility]) Smoking 02/26/2021 12:00:00 AM EDT Current Smoker completed Curre nt Smoker eCW1 ([facility]) Smoking 02/26/2021 12:00:00 AM EDT Current Smoker completed Curre nt Smoker eCW1 ([facility]) Smoking 02/26/2021 12:00:00 AM EDT Current Smoker completed Curre nt Smoker eCW1 ([facility]) Smoking 02/26/2021 12:00:00 AM EDT Current Smoker completed Curre nt Smoker eCW1 ([facility]) Smoking 12/31/2020 12:00:00 AM EDT Patient is a former smoker completed Patient is a former smoker MEDNIRAJ ([facility]) Smoking 12/26/2020 12:00:00 AM EDT Current Smoker completed Curre nt Smoker eCW1 ([facility]) Smoking 12/26/2020 12:00:00 AM EDT Current Smoker completed Curre nt Smoker eCW1 ([facility]) Smoking 12/26/2020 12:00:00 AM EDT Current Smoker completed Curre nt Smoker eCW1 ([facility]) Smoking 12/26/2020 12:00:00 AM EDT Current Smoker completed Curre nt Smoker eCW1 ([facility]) Smoking 12/26/2020 12:00:00 AM EDT Current Smoker completed Curre nt Smoker eCW1 ([facility]) Smoking 12/26/2020 12:00:00 AM EDT Current Smoker completed Curre nt Smoker eCW1 ([facility]) Smoking 12/26/2020 12:00:00 AM EDT Current Smoker completed Curre nt Smoker eCW1 ([facility]) Smoking 12/26/2020 12:00:00 AM EDT Current Smoker completed Curre nt Smoker eCW1 ([facility]) Smoking 12/26/2020 12:00:00 AM EDT Current Smoker completed Curre nt Smoker eCW1 ([facility]) Smoking 12/26/2020 12:00:00 AM EDT Current Smoker completed Curre nt Smoker eCW1 ([facility]) Smoking 12/02/2020 12:00:00 AM EDT Current Smoker completed Curre nt Smoker eCW1 ([facility]) Smoking 12/02/2020 12:00:00 AM EDT Current Smoker completed Curre nt Smoker eCW1 ([facility]) Smoking 12/02/2020 12:00:00 AM EDT Current Smoker completed Curre nt Smoker eCW1 ([facility]) Smoking 12/02/2020 12:00:00 AM EDT Current Smoker completed Curre nt Smoker eCW1 ([facility]) Smoking 12/02/2020 12:00:00 AM EDT Current Smoker completed Curre nt Smoker eCW1 ([facility]) Smoking 12/02/2020 12:00:00 AM EDT Current Smoker completed Curre nt Smoker eCW1 ([facility]) Smoking 12/02/2020 12:00:00 AM EDT Current Smoker completed Curre nt Smoker eCW1 ([facility]) Smoking 11/16/2020 05:16:00 AM EDT Former Smoker completed Former Smoker [facility] Smoking 11/01/2020 12:00:00 AM EDT Current Smoker completed Curre nt Smoker eCW1 ([facility]) Smoking 11/01/2020 12:00:00 AM EDT Current Smoker completed Curre nt Smoker eCW1 ([facility]) Smoking 11/01/2020 12:00:00 AM EDT Current Smoker completed Curre nt Smoker eCW1 ([facility]) Smoking 11/01/2020 12:00:00 AM EDT Current Smoker completed Curre nt Smoker eCW1 ([facility]) Smoking 11/01/2020 12:00:00 AM EDT Current Smoker completed Curre nt Smoker eCW1 ([facility]) Smoking 11/01/2020 12:00:00 AM EDT Current Smoker completed Curre nt Smoker eCW1 ([facility]) Smoking 11/01/2020 12:00:00 AM EDT Current Smoker completed Curre nt Smoker eCW1 ([facility]) Smoking 11/01/2020 12:00:00 AM EDT Current Smoker completed Curre nt Smoker eCW1 ([facility]) Smoking 11/01/2020 12:00:00 AM EDT Current Smoker completed Curre nt Smoker eCW1 ([facility]) Smoking 10/31/2020 12:00:00 AM EDT Current Smoker completed Curre nt Smoker eCW1 ([facility]) Smoking 10/25/2020 01:59:00 PM EDT Daily Smoker completed Daily S moker [facility] Smoking 09/09/2020 11:42:00 AM EDT Daily Smoker completed Daily S moker [facility] Smoking 09/02/2020 12:00:00 AM EDT Current Smoker completed Curre nt Smoker eCW1 ([facility]) Smoking 09/02/2020 12:00:00 AM EDT Current Smoker completed Curre nt Smoker eCW1 ([facility]) Smoking 09/02/2020 12:00:00 AM EDT Current Smoker completed Curre nt Smoker eCW1 ([facility]) Smoking 09/02/2020 12:00:00 AM EDT Current Smoker completed Curre nt Smoker eCW1 ([facility]) Smoking 09/02/2020 12:00:00 AM EDT Current Smoker completed Curre nt Smoker eCW1 ([facility]) Smoking 09/02/2020 12:00:00 AM EDT Current Smoker completed Curre nt Smoker eCW1 ([facility]) Smoking 09/02/2020 12:00:00 AM EDT Current Smoker completed Curre nt Smoker eCW1 ([facility]) Smoking 09/02/2020 12:00:00 AM EDT Current Smoker completed Curre nt Smoker eCW1 ([facility]) 08/07/2020 12:00:00 AM EST Patient is a current smoker, smokes every day completed Patient is a current smoker, smokes every day MEDENT ( [facility]) Vital Signs ID Date Data Source UNK Name Value Range Interpretation Code Description Data Source(s) Body weight 269 [lb_av] 269 [lb_av] eCW1 ([facility]) Body weight 122.02 kg 122.02 kg W1 ([facility]) Body mass index (BMI) [Ratio] 46.17 kg/m2 46.17 kg/m2 W1 ([facility]) Heart rate 114 /min 114 /min eCW1 ([facility]) Respiratory rate 18 /min 18 /min W1 ([facility]) Body temperature 97.4 [degF] 97.4 [degF] eCW1 ( [facility]) Systolic blood pressure 124 mm[Hg] 124 mm[Hg] e CW1 ([facility]) Diastolic blood pressure 76 mm[Hg] 76 mm[Hg] eCW1 ([facility]) Body height [in_i] eCW1 ([facility]) Body weight 267 [lb_av] 267 [lb_av] eCW1 ([facility]) Body weight 121.11 kg 121.11 kg W1 ([facility]) Body height [in_i] W1 ([facility]) Body mass index (BMI) [Ratio] 45.83 kg/m2 45.83 kg/m2 eCW1 ([facility]) Heart rate 102 /min 102 /min eCW1 ([facility]) Respiratory rate 18 /min 18 /min eCW1 ([facility]) Body temperature 98.6 [degF] 98.6 [degF] eCW1 ( [facility]) Systolic blood pressure 137 mm[Hg] 137 mm[Hg] e CW1 ([facility]) Diastolic blood pressure 72 mm[Hg] 72 mm[Hg] eCW1 ([facility]) Systolic blood pressure 128 mm[Hg] 128 mm[Hg] M EDENT ([facility], ) Diastolic blood pressure 80 mm[Hg] 80 mm[Hg] MEDENT ([facility]) Heart rate 119 /min 119 /min [facility] ([facility]) Oxygen saturation in Arterial blood by Pulse oximetry 97 % 97 % [facility] ([facility]) Body height 64 [in_i] 64 [in_i] [facility] ([facility]) 5'4" Body weight 266.00 [lb_av] 266.00 [lb_av] MEDEN T ([facility]) Body mass index (BMI) [Ratio] 45.7 kg/m2 45.7 k g/m2 [facility] ([facility]) [place] body weight 120 [lb_av] 120 [lb_av] MEDEN T ([facility]) Body weight 120.[address] [facility] ([facility]) Body surface area Derived from formula 2.[address] [facility] ([facility]) Diastolic blood pressure 76 mm[Hg] 76 mm[Hg] [facility] ([facility]) Body height 64 [in_i] 64 [in_i] [facility] ([facility]) 5'4" Body mass index (BMI) [Ratio] 45.7 kg/m2 45.7 k g/m2 [facility] ([facility]) Systolic blood pressure 122 mm[Hg] 122 mm[Hg] M EDENT ([facility]) Heart rate 93 /min 93 /min [facility] ([facility]) Oxygen saturation in Arterial blood by Pulse oximetry 96 % 96 % [facility] ([facility]) Body weight 266.00 [lb_av] 266.00 [lb_av] MEDEN T ([facility]) [place] body weight 120 [lb_av] 120 [lb_av] MEDEN T ([facility]) Body weight 120.[address] [facility] ([facility]) Body surface area Derived from formula 2.[address] [facility] ([facility]) [place] body weight 120 [lb_av] 120 [lb_av] MEDEN T ([facility]) Respiratory rate 12 /min 12 /min [facility] ( [facility]) Body height 64 [in_i] 64 [in_i] [facility] ([facility]) 5'4" Body weight 210.00 [lb_av] 210.00 [lb_av] MEDEN T ([facility]) Body mass index (BMI) [Ratio] 36.0 kg/m2 36.0 k g/m2 [facility] ([facility]) Body weight 119.75 kg 119.75 kg eCW1 ([facility]) Diastolic blood pressure 79 mm[Hg] 79 mm[Hg] eCW1 ([facility]) Body weight 264 [lb_av] 264 [lb_av] eCW1 ([facility]) Body height [in_i] eCW1 ([facility]) Body mass index (BMI) [Ratio] 45.31 kg/m2 45.31 kg/m2 eCW1 ([facility]) Heart rate 100 /min 100 /min eCW1 ([facility]) Respiratory rate 18 /min 18 /min eCW1 ([facility]) Body temperature 98.3 [degF] 98.3 [degF] eCW1 ( [facility]) Systolic blood pressure 104 mm[Hg] 104 mm[Hg] e CW1 ([facility]) Body temperature 98.0 [degF] 98.0 [degF] eCW1 ( [facility]) Body weight 264.6 [lb_av] 264.6 [lb_av] eCW1 ([facility]) Systolic blood pressure 132 mm[Hg] 132 mm[Hg] e CW1 ([facility]) Diastolic blood pressure 86 mm[Hg] 86 mm[Hg] eCW1 ([facility]) Body weight 120.02 kg 120.02 kg eCW1 ([facility]) Body height [in_i] eCW1 ([facility]) Body mass index (BMI) [Ratio] 45.41 kg/m2 45.41 kg/m2 eCW1 ([facility]) Heart rate 117 /min 117 /min eCW1 ([facility]) Respiratory rate 18 /min 18 /min eCW1 ([facility]) Body weight 249.4 [lb_av] 249.4 [lb_av] eCW1 ([facility]) Body height [in_i] eCW1 ([facility]) Body mass index (BMI) [Ratio] 42.80 kg/m2 42.80 kg/m2 eCW1 ([facility]) Heart rate 104 /min 104 /min eCW1 ([facility]) Respiratory rate 18 /min 18 /min eCW1 ([facility]) Body temperature 97.2 [degF] 97.2 [degF] eCW1 ( [facility]) Systolic blood pressure 118 mm[Hg] 118 mm[Hg] e CW1 ([facility]) Diastolic blood pressure 76 mm[Hg] 76 mm[Hg] eCW1 ([facility]) Body weight 247.6 [lb_av] 247.6 [lb_av] eCW1 ([facility]) Body height [in_i] eCW1 ([facility]) Body mass index (BMI) [Ratio] 42.50 kg/m2 42.50 kg/m2 eCW1 ([facility]) Heart rate 110 /min 110 /min eCW1 ([facility]) Respiratory rate 18 /min 18 /min eCW1 ([facility]) Body temperature 97.5 [degF] 97.5 [degF] eCW1 ( [facility]) Systolic blood pressure 126 mm[Hg] 126 mm[Hg] e CW1 ([facility]) Diastolic blood pressure 74 mm[Hg] 74 mm[Hg] eCW1 ([facility]) Heart rate 109 /min 109 /min MEDENT ([facility]) Body temperature 98.6 [degF] 98.6 [degF] MEDENT ([facility]) Systolic blood pressure 130 mm[Hg] 130 mm[Hg] M EDENT ([facility]) Diastolic blood pressure 86 mm[Hg] 86 mm[Hg] MEDENT ([facility]) Body height 64.75 [in_i] 64.75 [in_i] MEDENT ([facility]) 5'4.75" Body weight 245.00 [lb_av] 245.00 [lb_av] MEDEN T ([facility]) Body mass index (BMI) [Ratio] 41.1 kg/m2 41.1 k g/m2 MEDENT ([facility]) Body temperature 37.0 Sowmya 37.0 Sowmya MEDENT ( [facility]) Respiratory rate 12 /min 12 /min MEDENT ( [facility] Body mass index (BMI) [Ratio] 36.0 kg/m2 36.0 k g/m2 MEDENT ([facility], ) [place] body weight 120 [lb_av] 120 [lb_av] MEDEN T ([facility], ) Body height 64 [in_i] 64 [in_i] MEDENT ([facility], ) 5'4" Body weight 210.00 [lb_av] 210.00 [lb_av] MEDEN T ([facility], ) Systolic blood pressure 125 mm[Hg] Normal (applies t o non-numeric results) 125 mm[Hg] [facility] Diastolic blood pressure 86 mm[Hg] Normal (applies to non-numeric results) 86 mm[Hg] [facility] Heart rate 88 min Normal (applies to non-numeric resul ts) 88 min [facility] Deprecated Oxygen saturation in Capillary blood by Oximetry 95 % Normal (applies to non-numeric results) 95 % [facility] Respiratory rate 20 min Normal (applies to non-numeric results) 20 min [facility] Body temperature 36.9 sowmya Normal (applies to non-numeric results) 36.9 sowmya [facility] Body height [id number] cm Normal (applies to non-numeric results) [id number] cm [facility] Body weight Measured 108.6 kg Normal (applies to n on-numeric results) 108.6 kg [facility] Body weight 223.4 [lb_av] 223.4 [lb_av] eCW1 ([facility]) Body height [in_i] W1 ([facility]) Body mass index (BMI) [Ratio] 38.34 kg/m2 38.34 kg/m2 W1 ([facility]) Heart rate 97 /min 97 /min eCW1 ([facility]) Respiratory rate 18 /min 18 /min eCW1 ([facility]) Body temperature 99.5 [degF] 99.5 [degF] eCW1 ( [facility]) Systolic blood pressure 116 mm[Hg] 116 mm[Hg] e CW1 ([facility]) Diastolic blood pressure 86 mm[Hg] 86 mm[Hg] eCW1 ([facility]) Deprecated Oxygen saturation in Capillary blood by Oximetry 96 % Normal (applies to non-numeric results) 96 % [facility] Body weight Measured 105.1 kg Normal (applies to n on-numeric results) 105.1 kg [facility] Systolic blood pressure 110 mm[Hg] Normal (applies t o non-numeric results) 110 mm[Hg] [facility] Diastolic blood pressure 72 mm[Hg] Normal (applies to non-numeric results) 72 mm[Hg] [facility] Heart rate 102 min Normal (applies to non-numeric resul ts) 102 min [facility] Respiratory rate 16 min Normal (applies to non-numeric results) 16 min [facility] Body temperature 37.4 sowmya Normal (applies to non-numeric results) 37.4 sowmya [facility] Body mass index (BMI) [Ratio] 33.16 kg/m2 No rmal (applies to non-numeric results) 33.16 kg/m2 [facility] Body height 167.00595476309287 cm Normal (applies to non-numeric results) [id number] cm [facility] Heart rate 67 min Normal (applies to non-numeric resul ts) 67 min [facility] Respiratory rate 16 min Normal (applies to non-numeric results) 16 min [facility] Body temperature 36.7 sowmya Normal (applies to non-numeric results) 36.7 sowmya [facility] Deprecated Oxygen saturation in Capillary blood by Oximetry 98 % Normal (applies to non-numeric results) 98 % [facility] Body mass index (BMI) [Ratio] 35.23 kg/m2 No rmal (applies to non-numeric results) 35.23 kg/m2 [facility] Body height [id number] cm Normal (applies to non-numeric results) [id number] cm [facility] Body weight Measured 99 kg Normal (applies to non-num eri results) 99 kg [facility] Systolic blood pressure 122 mm[Hg] 122 mm[Hg] e CW1 ([facility]) Diastolic blood pressure 84 mm[Hg] 84 mm[Hg] eCW1 ([facility]) Body weight 218 [lb_av] 218 [lb_av] eCW1 ([facility]) Body height [in_i] eCW1 ([facility]) Body mass index (BMI) [Ratio] 37.42 kg/m2 37.42 kg/m2 eCW1 ([facility]) Heart rate 80 /min 80 /min eCW1 ([facility]) Respiratory rate 18 /min 18 /min eCW1 ([facility]) Body temperature 98.5 [degF] 98.5 [degF] eCW1 ( [facility]) Body height 64 [in_i] 64 [in_i] MEDENT ([facility], ) 5'4" Respiratory rate 12 /min 12 /min MEDENT ( [facility] ) Body weight 210.00 [lb_av] 210.00 [lb_av] MEDEN T ([facility], ) Body mass index (BMI) [Ratio] 36.0 kg/m2 36.0 k g/m2 MEDENT ([facility], ) [place] body weight 120 [lb_av] 120 [lb_av] MEDEN T ([facility]) Body height 64.75 [in_i] 64.75 [in_i] MEDENT ([facility]) 5'4.75" Systolic blood pressure 126 mm[Hg] 126 mm[Hg] M EDENT ([facility]) Heart rate 99 /min 99 /min MEDENT ([facility]) Body temperature 98.0 [degF] 98.0 [degF] MEDENT ([facility]) Body temperature 36.7 Sowmya 36.7 Sowmya MEDENT ( [facility]) Body weight 215.00 [lb_av] 215.00 [lb_av] MEDEN T ([facility]) Body mass index (BMI) [Ratio] 36.1 kg/m2 36.1 k g/m2 MEDENT ([facility]) Diastolic blood pressure 92 mm[Hg] 92 mm[Hg] MEDENT ([facility]) [place] body weight 120 [lb_av] 120 [lb_av] MEDEN T ([facility], ) Respiratory rate 12 /min 12 /min MEDENT ( [facility]) Body height 64 [in_i] 64 [in_i] [facility] 5'4" Body weight 210.00 [lb_av] 210.00 [lb_av] MEDEN T ([facility]) Body mass index (BMI) [Ratio] 36.0 kg/m2 36.0 k g/m2 [facility] ([facility]) Patient Treatment Plan of Care Planned Activity Planned Date Details Description Data Source (s) Amphetamine aspartate 5 MG / Amphetamine Sulfate 5 MG / Dextroamphetamine saccharate 5 MG / Dextroamphetamine Sulfate 5 MG Oral Tablet [Adderall] 04/17/2021 12:00:00 AM EDT eCW1 ([facility]) gabapentin 400 MG Oral Capsule 04/02/2021 12:00:00 AM EDT eCW1 ([facility]) gabapentin 400 MG Oral Capsule 04/02/2021 12:00:00 AM EDT eCW1 ([facility]) Amphetamine aspartate 5 MG / Amphetamine Sulfate 5 MG / Dextroamphetamine saccharate 5 MG / Dextroamphetamine Sulfate 5 MG Oral Tablet [Adderall] 03/17/2021 12:00:00 AM EDT eCW1 ([facility]) Amphetamine aspartate 5 MG / Amphetamine Sulfate 5 MG / Dextroamphetamine saccharate 5 MG / Dextroamphetamine Sulfate 5 MG Oral Tablet [Adderall] 03/17/2021 12:00:00 AM EDT eCW1 ([facility]) tramadol hydrochloride 50 MG Oral Tablet 03/05/2021 12:00:00 AM EDT eCW1 ([facility]) tramadol hydrochloride 50 MG Oral Tablet 03/05/2021 12:00:00 AM EDT eCW1 ([facility]) tramadol hydrochloride 50 MG Oral Tablet 03/05/2021 12:00:00 AM EDT eCW1 ([facility]) tramadol hydrochloride 50 MG Oral Tablet 03/05/2021 12:00:00 AM EDT eCW1 ([facility]) tramadol hydrochloride 50 MG Oral Tablet 03/05/2021 12:00:00 AM EDT eCW1 ([facility]) tramadol hydrochloride 50 MG Oral Tablet 03/05/2021 12:00:00 AM EDT eCW1 ([facility]) tramadol hydrochloride 50 MG Oral Tablet 03/05/2021 12:00:00 AM EDT eCW1 ([facility]) 168 HR Buprenorphine 0.005 MG/HR Transdermal Patch [Bu Trans] 03/03/2021 12:00:00 AM EDT eCW1 ([facility]) 168 HR Buprenorphine 0.005 MG/HR Transdermal Patch [Bu Trans] 03/03/2021 12:00:00 AM EDT eCW1 ([facility]) 168 HR Buprenorphine 0.005 MG/HR Transdermal Patch [Bu Trans] 03/03/2021 12:00:00 AM EDT eCW1 ([facility]) 168 HR Buprenorphine 0.005 MG/HR Transdermal Patch [Bu Trans] 03/03/2021 12:00:00 AM EDT eCW1 ([facility]) 168 HR Buprenorphine 0.005 MG/HR Transdermal Patch [Bu Trans] 03/03/2021 12:00:00 AM EDT eCW1 ([facility]) 168 HR Buprenorphine 0.005 MG/HR Transdermal Patch [Bu Trans] 03/03/2021 12:00:00 AM EDT eCW1 ([facility]) 168 HR Buprenorphine 0.005 MG/HR Transdermal Patch [Bu Trans] 03/03/2021 12:00:00 AM EDT eCW1 ([facility]) 168 HR Buprenorphine 0.005 MG/HR Transdermal Patch [Bu Trans] 03/03/2021 12:00:00 AM EDT eCW1 ([facility]) Triamcinolone Acetonide 0.25 MG/ML Topical Cream 02/26/2021 12:00:0 0 AM EDT eCW1 ([facility]) [place] 75 MCG 02/26/2021 12:00:00 AM EDT eCW1 ([facility]) Triamcinolone Acetonide 0.25 MG/ML Topical Cream 02/26/2021 12:00:0 0 AM EDT eCW1 ([facility]) [place] 75 MCG 02/26/2021 12:00:00 AM EDT eCW1 ([facility]) [place] 75 MCG 02/26/2021 12:00:00 AM EDT eCW1 ([facility]) Triamcinolone Acetonide 0.25 MG/ML Topical Cream 02/26/2021 12:00:0 0 AM EDT eCW1 ([facility]) [place] 75 MCG 02/26/2021 12:00:00 AM EDT eCW1 ([facility]) Triamcinolone Acetonide 0.25 MG/ML Topical Cream 02/26/2021 12:00:0 0 AM EDT eCW1 ([facility]) [place] 75 MCG 02/26/2021 12:00:00 AM EDT eCW1 ([facility]) Triamcinolone Acetonide 0.25 MG/ML Topical Cream 02/26/2021 12:00:0 0 AM EDT eCW1 ([facility]) [place] 75 MCG 02/26/2021 12:00:00 AM EDT eCW1 ([facility]) Triamcinolone Acetonide 0.25 MG/ML Topical Cream 02/26/2021 12:00:0 0 AM EDT eCW1 ([facility]) [place] 75 MCG 02/26/2021 12:00:00 AM EDT eCW1 ([facility]) Triamcinolone Acetonide 0.25 MG/ML Topical Cream 02/26/2021 12:00:0 0 AM EDT eCW1 ([facility]) [place] 75 MCG 02/26/2021 12:00:00 AM EDT eCW1 ([facility]) Triamcinolone Acetonide 0.25 MG/ML Topical Cream 02/26/2021 12:00:0 0 AM EDT eCW1 ([facility]) [place] 75 MCG 02/26/2021 12:00:00 AM EDT eCW1 ([facility]) Triamcinolone Acetonide 0.25 MG/ML Topical Cream 02/26/2021 12:00:0 0 AM EDT eCW1 ([facility]) Amphetamine aspartate 5 MG / Amphetamine Sulfate 5 MG / Dextroamphetamine saccharate 5 MG / Dextroamphetamine Sulfate 5 MG Oral Tablet [Adderall] 02/14/2021 12:00:00 AM EDT eCW1 ([facility]) Amphetamine aspartate 5 MG / Amphetamine Sulfate 5 MG / Dextroamphetamine saccharate 5 MG / Dextroamphetamine Sulfate 5 MG Oral Tablet [Adderall] 02/14/2021 12:00:00 AM EDT eCW1 ([facility]) Amphetamine aspartate 5 MG / Amphetamine Sulfate 5 MG / Dextroamphetamine saccharate 5 MG / Dextroamphetamine Sulfate 5 MG Oral Tablet [Adderall] 02/14/2021 12:00:00 AM EDT eCW1 ([facility]) Amphetamine aspartate 5 MG / Amphetamine Sulfate 5 MG / Dextroamphetamine saccharate 5 MG / Dextroamphetamine Sulfate 5 MG Oral Tablet [Adderall] 01/17/2021 12:00:00 AM EDT eCW1 ([facility]) Amphetamine aspartate 5 MG / Amphetamine Sulfate 5 MG / Dextroamphetamine saccharate 5 MG / Dextroamphetamine Sulfate 5 MG Oral Tablet [Adderall] 01/17/2021 12:00:00 AM EDT eCW1 ([facility]) Cyclobenzaprine hydrochloride 5 MG Oral Tablet 12/26/2020 12:00:00 AM EDT eCW1 ([facility]) pregabalin 50 MG Oral Capsule [Lyrica] 12/26/2020 12:00:00 AM EDT eCW1 ([facility]) Cyclobenzaprine hydrochloride 5 MG Oral Tablet 12/26/2020 12:00:00 AM EDT eCW1 ([facility]) pregabalin 50 MG Oral Capsule [Lyrica] 12/26/2020 12:00:00 AM EDT eCW1 ([facility]) pregabalin 50 MG Oral Capsule [Lyrica] 12/26/2020 12:00:00 AM EDT eCW1 ([facility]) Cyclobenzaprine hydrochloride 5 MG Oral Tablet 12/26/2020 12:00:00 AM EDT eCW1 ([facility]) pregabalin 50 MG Oral Capsule [Lyrica] 12/26/2020 12:00:00 AM EDT eCW1 ([facility]) Cyclobenzaprine hydrochloride 5 MG Oral Tablet 12/26/2020 12:00:00 AM EDT eCW1 ([facility]) pregabalin 50 MG Oral Capsule [Lyrica] 12/26/2020 12:00:00 AM EDT eCW1 ([facility]) Cyclobenzaprine hydrochloride 5 MG Oral Tablet 12/26/2020 12:00:00 AM EDT eCW1 ([facility]) pregabalin 50 MG Oral Capsule [Lyrica] 12/26/2020 12:00:00 AM EDT eCW1 ([facility]) Cyclobenzaprine hydrochloride 5 MG Oral Tablet 12/26/2020 12:00:00 AM EDT eCW1 ([facility]) pregabalin 50 MG Oral Capsule [Lyrica] 12/26/2020 12:00:00 AM EDT eCW1 ([facility]) Cyclobenzaprine hydrochloride 5 MG Oral Tablet 12/26/2020 12:00:00 AM EDT eCW1 ([facility]) pregabalin 50 MG Oral Capsule [Lyrica] 12/26/2020 12:00:00 AM EDT eCW1 ([facility]) Cyclobenzaprine hydrochloride 5 MG Oral Tablet 12/26/2020 12:00:00 AM EDT eCW1 ([facility]) pregabalin 50 MG Oral Capsule [Lyrica] 12/26/2020 12:00:00 AM EDT eCW1 ([facility]) Cyclobenzaprine hydrochloride 5 MG Oral Tablet 12/26/2020 12:00:00 AM EDT eCW1 ([facility]) Cyclobenzaprine hydrochloride 5 MG Oral Tablet 12/26/2020 12:00:00 AM EDT eCW1 ([facility]) pregabalin 50 MG Oral Capsule [Lyrica] 12/26/2020 12:00:00 AM EDT eCW1 ([facility]) Amphetamine aspartate 5 MG / Amphetamine Sulfate 5 MG / Dextroamphetamine saccharate 5 MG / Dextroamphetamine Sulfate 5 MG Oral Tablet [Adderall] 12/19/2020 12:00:00 AM EDT eCW1 ([facility]) Amphetamine aspartate 5 MG / Amphetamine Sulfate 5 MG / Dextroamphetamine saccharate 5 MG / Dextroamphetamine Sulfate 5 MG Oral Tablet [Adderall] 12/19/2020 12:00:00 AM EDT eCW1 ([facility]) Amphetamine aspartate 5 MG / Amphetamine Sulfate 5 MG / Dextroamphetamine saccharate 5 MG / Dextroamphetamine Sulfate 5 MG Oral Tablet [Adderall] 12/19/2020 12:00:00 AM EDT eCW1 ([facility]) [employer]Du[employer] RespiClick 113/14 113-14 MCG/ACT 12/06/2020 12:00:00 AM EDT eCW1 ([facility]) [employer] Respi[employer] 113/14 113-14 MCG/ACT 12/06/2020 12:00:00 AM EDT eCW1 ([facility]) [employer] Respi[employer] 113/14 113-14 MCG/ACT 12/06/2020 12:00:00 AM EDT eCW1 ([facility]) [employer] Respi[employer] 113/14 113-14 MCG/ACT 12/06/2020 12:00:00 AM EDT eCW1 ([facility]) [employer] Respi[employer] 113/14 113-14 MCG/ACT 12/06/2020 12:00:00 AM EDT eCW1 ([facility]) duloxetine 60 MG Delayed Release Oral Capsule [Cymbalt a] 12/02/2020 12:00:00 AM EDT eCW1 ([facility]) duloxetine 60 MG Delayed Release Oral Capsule [Cymbalt a] 12/02/2020 12:00:00 AM EDT eCW1 ([facility]) duloxetine 60 MG Delayed Release Oral Capsule [Cymbalt a] 12/02/2020 12:00:00 AM EDT eCW1 ([facility]) duloxetine 60 MG Delayed Release Oral Capsule [Cymbalt a] 12/02/2020 12:00:00 AM EDT eCW1 ([facility]) duloxetine 60 MG Delayed Release Oral Capsule [Cymbalt a] 12/02/2020 12:00:00 AM EDT eCW1 ([facility]) duloxetine 60 MG Delayed Release Oral Capsule [Cymbalt a] 12/02/2020 12:00:00 AM EDT eCW1 ([facility]) duloxetine 60 MG Delayed Release Oral Capsule [Cymbalt a] 12/02/2020 12:00:00 AM EDT eCW1 ([facility]) duloxetine 60 MG Delayed Release Oral Capsule [Cymbalt a] 12/02/2020 12:00:00 AM EDT eCW1 ([facility]) duloxetine 60 MG Delayed Release Oral Capsule [Cymbalt a] 12/02/2020 12:00:00 AM EDT eCW1 ([facility]) duloxetine 60 MG Delayed Release Oral Capsule [Cymbalt a] 12/02/2020 12:00:00 AM EDT eCW1 ([facility]) 60 ACTUAT Fluticasone propionate 0.25 MG /ACTUAT / salmeterol 0.05 MG/ACTUAT Dry Powder Inhaler [Advair] 12/02/2020 12:00:00 AM EDT eCW1 ([facility]) duloxetine 60 MG Delayed Release Oral Capsule [Cymbalt a] 12/02/2020 12:00:00 AM EDT eCW1 ([facility]) 60 ACTUAT Fluticasone propionate 0.25 MG /ACTUAT / salmeterol 0.05 MG/ACTUAT Dry Powder Inhaler [Advair] 12/02/2020 12:00:00 AM EDT eCW1 ([facility]) duloxetine 60 MG Delayed Release Oral Capsule [Cymbalt a] 12/02/2020 12:00:00 AM EDT eCW1 ([facility]) duloxetine 60 MG Delayed Release Oral Capsule [Cymbalt a] 12/02/2020 12:00:00 AM EDT eCW1 ([facility]) 60 ACTUAT Fluticasone propionate 0.25 MG /ACTUAT / salmeterol 0.05 MG/ACTUAT Dry Powder Inhaler [Advair] 12/02/2020 12:00:00 AM EDT eCW1 ([facility]) duloxetine 60 MG Delayed Release Oral Capsule [Cymbalt a] 12/02/2020 12:00:00 AM EDT eCW1 ([facility]) 60 ACTUAT Fluticasone propionate 0.25 MG /ACTUAT / salmeterol 0.05 MG/ACTUAT Dry Powder Inhaler [Advair] 12/02/2020 12:00:00 AM EDT eCW1 ([facility]) duloxetine 60 MG Delayed Release Oral Capsule [Cymbalt a] 12/02/2020 12:00:00 AM EDT eCW1 ([facility]) 60 ACTUAT Fluticasone propionate 0.25 MG /ACTUAT / salmeterol 0.05 MG/ACTUAT Dry Powder Inhaler [Advair] 12/02/2020 12:00:00 AM EDT eCW1 ([facility]) duloxetine 60 MG Delayed Release Oral Capsule [Cymbalt a] 12/02/2020 12:00:00 AM EDT eCW1 ([facility]) 60 ACTUAT Fluticasone propionate 0.25 MG /ACTUAT / salmeterol 0.05 MG/ACTUAT Dry Powder Inhaler [Advair] 12/02/2020 12:00:00 AM EDT eCW1 ([facility]) 60 ACTUAT Fluticasone propionate 0.25 MG /ACTUAT / salmeterol 0.05 MG/ACTUAT Dry Powder Inhaler [Advair] 12/02/2020 12:00:00 AM EDT eCW1 ([facility]) Carbamazepine 200 MG Oral Tablet 11/24/2020 12:00:00 AM EDT eCW1 ([facility]) Carbamazepine 200 MG Oral Tablet 11/24/2020 12:00:00 AM EDT eCW1 ([facility]) Carbamazepine 200 MG Oral Tablet 11/24/2020 12:00:00 AM EDT eCW1 ([facility]) Carbamazepine 200 MG Oral Tablet 11/24/2020 12:00:00 AM EDT eCW1 ([facility]) Carbamazepine 200 MG Oral Tablet 11/24/2020 12:00:00 AM EDT eCW1 ([facility]) duloxetine 30 MG Delayed Release Oral Capsule [Cymbalt a] 11/22/2020 12:00:00 AM EDT eCW1 ([facility]) duloxetine 30 MG Delayed Release Oral Capsule [Cymbalt a] 11/22/2020 12:00:00 AM EDT eCW1 ([facility]) duloxetine 30 MG Delayed Release Oral Capsule [Cymbalt a] 11/22/2020 12:00:00 AM EDT eCW1 ([facility]) duloxetine 30 MG Delayed Release Oral Capsule [Cymbalt a] 11/22/2020 12:00:00 AM EDT eCW1 ([facility]) Amphetamine aspartate 5 MG / Amphetamine Sulfate 5 MG / Dextroamphetamine saccharate 5 MG / Dextroamphetamine Sulfate 5 MG Oral Tablet [Adderall] 11/18/2020 12:00:00 AM EDT eCW1 ([facility]) Amphetamine aspartate 5 MG / Amphetamine Sulfate 5 MG / Dextroamphetamine saccharate 5 MG / Dextroamphetamine Sulfate 5 MG Oral Tablet [Adderall] 11/18/2020 12:00:00 AM EDT eCW1 ([facility]) Amphetamine aspartate 5 MG / Amphetamine Sulfate 5 MG / Dextroamphetamine saccharate 5 MG / Dextroamphetamine Sulfate 5 MG Oral Tablet [Adderall] 11/18/2020 12:00:00 AM EDT eCW1 ([facility]) Amphetamine aspartate 5 MG / Amphetamine Sulfate 5 MG / Dextroamphetamine saccharate 5 MG / Dextroamphetamine Sulfate 5 MG Oral Tablet [Adderall] 11/18/2020 12:00:00 AM EDT eCW1 ([facility]) Amphetamine aspartate 5 MG / Amphetamine Sulfate 5 MG / Dextroamphetamine saccharate 5 MG / Dextroamphetamine Sulfate 5 MG Oral Tablet [Adderall] 11/18/2020 12:00:00 AM EDT eCW1 ([facility]) Amphetamine aspartate 5 MG / Amphetamine Sulfate 5 MG / Dextroamphetamine saccharate 5 MG / Dextroamphetamine Sulfate 5 MG Oral Tablet [Adderall] 11/18/2020 12:00:00 AM EDT eCW1 ([facility]) Amphetamine aspartate 5 MG / Amphetamine Sulfate 5 MG / Dextroamphetamine saccharate 5 MG / Dextroamphetamine Sulfate 5 MG Oral Tablet [Adderall] 11/18/2020 12:00:00 AM EDT eCW1 ([facility]) gabapentin 600 MG Oral Tablet 11/01/2020 12:00:00 AM EDT eCW1 ([facility]) gabapentin 600 MG Oral Tablet 11/01/2020 12:00:00 AM EDT eCW1 ([facility]) gabapentin 600 MG Oral Tablet 11/01/2020 12:00:00 AM EDT eCW1 ([facility]) gabapentin 600 MG Oral Tablet 11/01/2020 12:00:00 AM EDT eCW1 ([facility]) gabapentin 600 MG Oral Tablet 11/01/2020 12:00:00 AM EDT eCW1 ([facility]) gabapentin 300 MG Oral Capsule 11/01/2020 12:00:00 AM EDT eCW1 ([facility]) gabapentin 300 MG Oral Capsule 11/01/2020 12:00:00 AM EDT eCW1 ([facility]) gabapentin 300 MG Oral Capsule 11/01/2020 12:00:00 AM EDT eCW1 ([facility]) gabapentin 300 MG Oral Capsule 11/01/2020 12:00:00 AM EDT eCW1 ([facility]) gabapentin 300 MG Oral Capsule 11/01/2020 12:00:00 AM EDT eCW1 ([facility]) gabapentin 300 MG Oral Capsule 11/01/2020 12:00:00 AM EDT eCW1 ([facility]) gabapentin 300 MG Oral Capsule 11/01/2020 12:00:00 AM EDT eCW1 ([facility]) gabapentin 300 MG Oral Capsule 11/01/2020 12:00:00 AM EDT eCW1 ([facility]) gabapentin 300 MG Oral Capsule 11/01/2020 12:00:00 AM EDT eCW1 ([facility]) Amphetamine aspartate 5 MG / Amphetamine Sulfate 5 MG / Dextroamphetamine saccharate 5 MG / Dextroamphetamine Sulfate 5 MG Oral Tablet [Adderall] 10/18/2020 12:00:00 AM EDT eCW1 ([facility]) Amphetamine aspartate 5 MG / Amphetamine Sulfate 5 MG / Dextroamphetamine saccharate 5 MG / Dextroamphetamine Sulfate 5 MG Oral Tablet [Adderall] 10/18/2020 12:00:00 AM EDT eCW1 ([facility]) hydrocortisone acetate 25 MG Rectal Suppository [Anuso l HC] 10/11/2020 12:00:00 AM EDT eCW1 ([facility]) hydrocortisone acetate 25 MG Rectal Suppository [Anuso l HC] 10/11/2020 12:00:00 AM EDT eCW1 ([facility]) hydrocortisone acetate 25 MG Rectal Suppository [Anuso l HC] 10/11/2020 12:00:00 AM EDT eCW1 ([facility]) hydrocortisone acetate 25 MG Rectal Suppository [Anuso l HC] 10/11/2020 12:00:00 AM EDT eCW1 ([facility]) Amphetamine aspartate 5 MG / Amphetamine Sulfate 5 MG / Dextroamphetamine saccharate 5 MG / Dextroamphetamine Sulfate 5 MG Oral Tablet [Adderall] 09/20/2020 12:00:00 AM EDT eCW1 ([facility]) Amphetamine aspartate 5 MG / Amphetamine Sulfate 5 MG / Dextroamphetamine saccharate 5 MG / Dextroamphetamine Sulfate 5 MG Oral Tablet [Adderall] 09/20/2020 12:00:00 AM EDT eCW1 ([facility]) Amphetamine aspartate 5 MG / Amphetamine Sulfate 5 MG / Dextroamphetamine saccharate 5 MG / Dextroamphetamine Sulfate 5 MG Oral Tablet [Adderall] 09/20/2020 12:00:00 AM EDT eCW1 ([facility]) Amphetamine aspartate 5 MG / Amphetamine Sulfate 5 MG / Dextroamphetamine saccharate 5 MG / Dextroamphetamine Sulfate 5 MG Oral Tablet [Adderall] 09/20/2020 12:00:00 AM EDT eCW1 ([facility]) Norethindrone Acet-Ethinyl Est 1-20 MG-MCG 09/02/2020 12:00:00 AM E DT eCW1 ([facility]) Norethindrone Acet-Ethinyl Est 1-20 MG-MCG 09/02/2020 12:00:00 AM E DT eCW1 ([facility]) Norethindrone Acet-Ethinyl Est 1-20 MG-MCG 09/02/2020 12:00:00 AM E DT eCW1 ([facility]) Norethindrone Acet-Ethinyl Est 1-20 MG-MCG 09/02/2020 12:00:00 AM E DT eCW1 ([facility]) Norethindrone Acet-Ethinyl Est 1-20 MG-MCG 09/02/2020 12:00:00 AM E DT eCW1 ([facility]) Norethindrone Acet-Ethinyl Est 1-20 MG-MCG 09/02/2020 12:00:00 AM E DT eCW1 ([facility]) Norethindrone Acet-Ethinyl Est 1-20 MG-MCG 09/02/2020 12:00:00 AM E DT eCW1 ([facility]) Norethindrone Acet-Ethinyl Est 1-20 MG-MCG 09/02/2020 12:00:00 AM E DT eCW1 ([facility]) Amphetamine aspartate 5 MG / Amphetamine Sulfate 5 MG / Dextroamphetamine saccharate 5 MG / Dextroamphetamine Sulfate 5 MG Oral Tablet [Adderall] 07/19/2020 12:00:00 AM EST eCW1 ([facility]) Amphetamine aspartate 5 MG / Amphetamine Sulfate 5 MG / Dextroamphetamine saccharate 5 MG / Dextroamphetamine Sulfate 5 MG Oral Tablet [Adderall] 07/19/2020 12:00:00 AM EST eCW1 ([facility]) Amphetamine aspartate 5 MG / Amphetamine Sulfate 5 MG / Dextroamphetamine saccharate 5 MG / Dextroamphetamine Sulfate 5 MG Oral Tablet [Adderall] 07/19/2020 12:00:00 AM EST eCW1 ([facility]) Amphetamine aspartate 5 MG / Amphetamine Sulfate 5 MG / Dextroamphetamine saccharate 5 MG / Dextroamphetamine Sulfate 5 MG Oral Tablet [Adderall] 07/19/2020 12:00:00 AM EST eCW1 ([facility]) Amphetamine aspartate 5 MG / Amphetamine Sulfate 5 MG / Dextroamphetamine saccharate 5 MG / Dextroamphetamine Sulfate 5 MG Oral Tablet [Adderall] 07/19/2020 12:00:00 AM EST eCW1 ([facility]) Amphetamine aspartate 5 MG / Amphetamine Sulfate 5 MG / Dextroamphetamine saccharate 5 MG / Dextroamphetamine Sulfate 5 MG Oral Tablet [Adderall] 06/17/2020 12:00:00 AM EST eCW1 ([facility]) Amphetamine aspartate 5 MG / Amphetamine Sulfate 5 MG / Dextroamphetamine saccharate 5 MG / Dextroamphetamine Sulfate 5 MG Oral Tablet [Adderall] 04/17/2020 12:00:00 AM EST eCW1 ([facility]) Amphetamine aspartate 5 MG / Amphetamine Sulfate 5 MG / Dextroamphetamine saccharate 5 MG / Dextroamphetamine Sulfate 5 MG Oral Tablet [Adderall] 04/17/2020 12:00:00 AM EST eCW1 ([facility]) Amphetamine aspartate 5 MG / Amphetamine Sulfate 5 MG / Dextroamphetamine saccharate 5 MG / Dextroamphetamine Sulfate 5 MG Oral Tablet [Adderall] 04/17/2020 12:00:00 AM EST eCW1 ([facility]) Amphetamine aspartate 5 MG / Amphetamine Sulfate 5 MG / Dextroamphetamine saccharate 5 MG / Dextroamphetamine Sulfate 5 MG Oral Tablet [Adderall] 04/17/2020 12:00:00 AM EST eCW1 ([facility]) Amphetamine aspartate 5 MG / Amphetamine Sulfate 5 MG / Dextroamphetamine saccharate 5 MG / Dextroamphetamine Sulfate 5 MG Oral Tablet [Adderall] 04/17/2020 12:00:00 AM EST eCW1 ([facility])
[2021-05-15 16:34] LABS: VENOUS BASE EXCESS 2.4 (-2.0-2.0); VENOUS HCO3 26.1 MEQ/L (23.0-27.0); VENOUS O2 SATURATION 98.8 % (60.0-80.0); VENOUS PARTIAL PRESSURE CO2 37.1 mmHg (38.0-50.0); VENOUS PARTIAL PRESSURE O2 124.8 mmHg (30.0-50.0); VENOUS PH 7.465 UNITS (7.330-7.430); VENOUS STANDARD HCO3 26.6 MEQ/L; VENOUS TOTAL CO2 27.2 MEQ/L (24.0-28.0)
[2021-05-15 16:36] LABS: BASO # 0.1 10^3/uL (0.0-0.2); BASO % 0.5 % (0.0-1.0); EOS # 0.2 10^3/uL (0.0-0.5); EOS % 1.6 % (0.0-3.0); HEMATOCRIT 34.7 % (36.0-47.0); LYMPH % 15.2 % (24.0-44.0); MEAN CORPUSCULAR HEMOGLOBIN 27.6 pg (27.0-33.0); MEAN CORPUSCULAR HGB CONC 31.7 g/dl (32.0-36.5); MEAN CORPUSCULAR VOLUME 87.2 fl (80.0-96.0); MONO # 0.8 10^3/uL (0.0-0.8); MONO % 5.8 % (2.0-8.0); NEUTROPHILS # 10.2 10^3/uL (1.5-8.5); NEUTROPHILS % 76.1 % (36.0-66.0); PLATELET COUNT, AUTOMATED 309 10^3/uL (150-450); RED BLOOD COUNT 3.98 10^6/uL (4.00-5.40); WHITE BLOOD COUNT 13.4 10^3/uL (4.0-10.0)
[2021-05-15 17:15] LABS: ALBUMIN 3.1 GM/DL (3.2-5.2); ALT/SGPT 39 U/L (12-78); BILIRUBIN,DIRECT 0.1 MG/DL (0.0-0.2); BILIRUBIN,TOTAL 0.2 MG/DL (0.2-1.0); BLOOD UREA NITROGEN 12 MG/DL (7-18); CALCIUM LEVEL 8.7 MG/DL (8.5-10.1); CARBON DIOXIDE LEVEL 25 MEQ/L (21-32); CHLORIDE LEVEL 104 MEQ/L (98-107); CREATININE FOR GFR 0.79 MG/DL (0.55-1.30); GLOMERULAR FILTRATION RATE > 60.0 (>60); GLUCOSE, FASTING 129 MG/DL (70-100); NT-PRO BNP 1124 PG/ML (<125); POTASSIUM SERUM 3.8 MEQ/L (3.5-5.1); SODIUM LEVEL 138 MEQ/L (136-145); THYROID STIMULATING HORMONE 0.878 uIU/ML (0.358-3.740); TOTAL PROTEIN 7.2 GM/DL (6.4-8.2)
[2021-05-15] MEDS ORDERED: ISOVUE-370 76% 100ML VIAL As Ordered ONE (19:42)
[2021-05-15] MEDS ORDERED: MORPHINE 4 MG/ML 1ML VIAL/SYRINGE (J2270) IV ONE (19:45)
--- NOTE | 2021-05-15 21:49 | REPVR ---
PROCEDURE INFORMATION: Exam: CTA Chest With Contrast Exam date and time: 05/15/2021 7:49 PM Age: 35 years old Clinical indication: Shortness of breath; Chest wall pain; Additional info: Cp, SOB, tachy, eval for pe TECHNIQUE: Imaging protocol: Computed tomographic angiography of the chest with contrast. 3D rendering (Not supervised by radiologist): MIP and/or 3D reconstructed images were created by the technologist. Radiation optimization: All CT scans at this facility use at least one of these dose optimization techniques: automated exposure control; mA and/or kV adjustment per patient size (includes targeted exams where dose is matched to clinical indication); or iterative reconstruction. Contrast material: ISOVUE 370; Contrast volume: 100 ml; Contrast route: INTRAVENOUS (IV); COMPARISON: CR PORTABLE CHEST X-RAY 05/15/2021 3:56 PM FINDINGS: Pulmonary arteries: There is a large pulmonary embolism in the right main pulmonary artery with thrombus extending into segmental and subsegmental pulmonary arteries of the right upper, middle, and lower lobes. There may be small subsegmental emboli in the left lung but evaluation is limited by excessive respiratory motion. Aorta: Unremarkable. No aortic aneurysm. No aortic dissection. Lungs: Patchy airspace opacities are present in the left lower lobe and lingula. Lungs are otherwise clear. Airways are clear. Pleural spaces: No pneumothorax. No pleural effusion. Heart: Normal heart size. The right ventricle is mildly enlarged with RV-LV ratio of 1.4. No pericardial effusion. Lymph nodes: Unremarkable. No enlarged lymph nodes. Diaphragm: There is a small hiatal hernia. Bones/joints: Unremarkable. No acute fracture. Soft tissues: Unremarkable. IMPRESSION: 1. Large pulmonary embolism in the right main pulmonary artery extending throughout the right lung. Possible small subsegmental emboli in the left lung. Evaluation is limited by patient respiratory motion. 2. Mildly enlarged right ventricle suggesting right heart strain. 3. Patchy airspace opacities in the left lung. Possible early pneumonia. Electronically signed by: Benedicto Iglesias On 05/15/2021 21:48:56 PM
[2021-05-15] MEDS ORDERED: HEPARIN SOD (PORCINE) 5000UNITS/ML 1ML VIAL/SYRINGE IV ONE (21:55)
[2021-05-15] MEDS ORDERED: HEPARIN DRIP 25,000 UNITS in IV 1 EA IV SCH (21:55)
[2021-05-15 22:30] VITALS: O2SAT 90
[2021-05-15 23:04] LABS: HEMATOCRIT 33.5 % (36.0-47.0); HEMOGLOBIN 10.5 g/dl (12.0-15.5); MEAN CORPUSCULAR HEMOGLOBIN 27.8 pg (27.0-33.0); MEAN CORPUSCULAR HGB CONC 31.3 g/dl (32.0-36.5); MEAN CORPUSCULAR VOLUME 88.6 fl (80.0-96.0); PLATELET COUNT, AUTOMATED 287 10^3/uL (150-450); RED BLOOD COUNT 3.78 10^6/uL (4.00-5.40); WHITE BLOOD COUNT 12.6 10^3/uL (4.0-10.0)
--- NOTE | 2021-05-15 23:15 | REPVR ---
PROCEDURE INFORMATION: Exam: US Duplex Lower Extremity Veins, Bilateral Exam date and time: 05/15/2021 10:54 PM Age: 35 years old Clinical indication: Pain; Leg, lower; Bilateral; Additional info: Pe, eval for dvt TECHNIQUE: Imaging protocol: Real-time duplex ultrasound of the extremities with 2-D munguia scale, color Doppler flow and spectral waveform analysis with image documentation. Complete exam focused on the bilateral lower extremity veins. COMPARISON: US Duplex, Ext LOWER veins, bilat 11/22/2020 6:24 PM FINDINGS: Right deep veins: Unremarkable. The common femoral, femoral, proximal profunda femoral and popliteal veins are patent without thrombus. Normal Doppler waveforms. Normal compressibility and/or augmentation response. Right superficial veins: Saphenofemoral junction is patent without thrombus. Left deep veins: There is intraluminal thrombus with in the distal left femoral vein extending into the popliteal vein, trifurcation, and proximal calf veins. Left superficial veins: Saphenofemoral junction is patent without thrombus. Soft tissues: Unremarkable. IMPRESSION: 1. Occlusive thrombus in the distal left femoral vein extending into the popliteal vein, trifurcation, and proximal calf veins. 2. No DVT in the right leg. Electronically signed by: Benedicto Iglesias On 05/15/2021 23:14:38 PM
[2021-05-15 23:37] VITALS: BP 133/79
--- NOTE | 2021-05-16 01:06 | ECGEPIP ---
[facility] - ED Test Date: 2021-05-15 Pat Name: BETH ENCARNACION Department: Room: - Gender: Female Office Helper: LR : 1985 Requested By: TAMMY Muse Order Number: [id number] Reading MD: Anshu Baltazar Measurements Intervals [place] Rate: 102 P: 69 [place]: 142 QRS: 72 QRSD: 82 T: 10 QT: 346 QTc: 450 Interpretive Statements Sinus tachycardia POOR R WAVE PROGRESSION NONSPECIFIC T WAVE ABNORMALITY(S) SIMILAR TO 04/29/20 Electronically Signed on 05-16-2021 1:05:50 EST by Anshu Baltazar
== END 2021-05-15 23:41 | disposition short-term general hospital (02) ==
LOC: M ED 15:13 → EDBD 15:13 → M ED 23:41
DX: I26.09 Other pulmonary embolism with acute cor pulmonale (principal); I82.412 Acute embolism and thrombosis of left femoral vein; I82.432 Acute embolism and thrombosis of left popliteal vein; R00.0 Tachycardia, unspecified; G47.30 Sleep apnea, unspecified; E28.2 Polycystic ovarian syndrome; Z86.73 Personal history of transient ischemic attack (TIA), and cerebral infarction without residual deficits; Z87.891 Personal history of nicotine dependence; Z88.8 Allergy status to other drugs, medicaments and biological substances; Z79.899 Other long term (current) drug therapy
CPT/HCPCS: 71045; 71275; 80048; 80076; 82803; 83605; 83880; 84443; 85025; 85027; 85379; 85730; 87798; 93005; 93041; 93970; 94760; 99291; J1644; J2270; Q9967

== ENCOUNTER → 2021-07-16 | Outpatient (CLI) | payer OTHER ==
[~2021-07-16] MED LIST changes: +DEXA2TA; +ELIQ5TAB
== END ==
LOC: M RAD 11:59
PROVIDERS: ATTEND Family Medicine
DX: R41.89 Other symptoms and signs involving cognitive functions and awareness (principal)

== ENCOUNTER → 2021-10-08 | Outpatient (REF) | payer OTHER ==
[2021-10-08 16:51] LABS: ALBUMIN 3.6 GM/DL (3.2-5.2); ALT/SGPT 43 U/L (12-78); BILIRUBIN,TOTAL 0.1 MG/DL (0.2-1.0); BLOOD UREA NITROGEN 9 MG/DL (7-18); CALCIUM LEVEL 9.5 MG/DL (8.5-10.1); CARBON DIOXIDE LEVEL 25 MEQ/L (21-32); CHLORIDE LEVEL 105 MEQ/L (98-107); CREATININE FOR GFR 0.92 MG/DL (0.55-1.30); GLOMERULAR FILTRATION RATE > 60.0 (>60); GLUCOSE, FASTING 275 MG/DL (70-100); POTASSIUM SERUM 4.4 MEQ/L (3.5-5.1); SODIUM LEVEL 137 MEQ/L (136-145); TOTAL PROTEIN 7.2 GM/DL (6.4-8.2)
== END ==
LOC: M SFHCADAM 11:37
PROVIDERS: ATTEND Family Medicine
DX: G89.4 Chronic pain syndrome (principal)

== ENCOUNTER → 2021-10-08 | Outpatient (CLI) | payer OTHER ==
[2021-10-08 16:44] LABS: BLOOD UREA NITROGEN 10 MG/DL (7-18); CREATININE FOR GFR 1.04 MG/DL (0.55-1.30); GLOMERULAR FILTRATION RATE > 60.0 (>60)
== END ==
LOC: M ADAMS 11:55
PROVIDERS: ATTEND Radiology Radiation Oncology
DX: Q28.2 Arteriovenous malformation of cerebral vessels (principal)

== ENCOUNTER → 2021-10-08 | Outpatient (CLI) | payer OTHER ==
[2021-10-08 18:43] LABS: HEMOGLOBIN A1c 8.3 %
== END ==
LOC: M ADAMS 12:06
PROVIDERS: ATTEND Surgery
DX: Z86.39 Personal history of other endocrine, nutritional and metabolic disease (principal)

== ENCOUNTER → 2021-11-03 | Outpatient (CLI) | payer MEDICAID, OTHER ==
[~2021-11-03] MED LIST changes: +BOTO10VL IM; +RIME75TA
== END ==
LOC: M SLEEP 20:00
PROVIDERS: ATTEND Nurse Practitioner Adult Health
DX: G47.33 Obstructive sleep apnea (adult) (pediatric) (principal)

== ENCOUNTER → 2021-11-13 | Outpatient (CLI) | payer OTHER ==
[2021-11-13 16:39] LABS: BASO # 0.1 10^3/uL (0.0-0.2); BASO % 0.5 % (0.0-1.0); EOS # 0.2 10^3/uL (0.0-0.5); EOS % 1.7 % (0.0-3.0); HEMATOCRIT 38.8 % (36.0-47.0); HEMOGLOBIN 12.1 g/dl (12.0-15.5); LYMPH # 2.9 10^3/uL (1.5-5.0); LYMPH % 22.7 % (24.0-44.0); MEAN CORPUSCULAR HEMOGLOBIN 24.6 pg (27.0-33.0); MEAN CORPUSCULAR HGB CONC 31.2 g/dl (32.0-36.5); MONO # 0.7 10^3/uL (0.0-0.8); MONO % 5.4 % (2.0-8.0); NEUTROPHILS # 8.7 10^3/uL (1.5-8.5); PLATELET COUNT, AUTOMATED 359 10^3/uL (150-450); RED BLOOD COUNT 4.91 10^6/uL (4.00-5.40); WHITE BLOOD COUNT 12.7 10^3/uL (4.0-10.0)
[2021-11-13 17:05] LABS: ALBUMIN 3.5 GM/DL (3.2-5.2); ALT/SGPT 51 U/L (12-78); BILIRUBIN,TOTAL 0.2 MG/DL (0.2-1.0); BLOOD UREA NITROGEN 8 MG/DL (7-18); CALCIUM LEVEL 8.8 MG/DL (8.5-10.1); CARBON DIOXIDE LEVEL 25 MEQ/L (21-32); CHLORIDE LEVEL 105 MEQ/L (98-107); CREATININE FOR GFR 0.99 MG/DL (0.55-1.30); GLOMERULAR FILTRATION RATE > 60.0 (>60); GLUCOSE, FASTING 165 MG/DL (70-100); POTASSIUM SERUM 3.8 MEQ/L (3.5-5.1); SODIUM LEVEL 137 MEQ/L (136-145); TOTAL PROTEIN 7.4 GM/DL (6.4-8.2)
== END ==
LOC: M ADAMS 13:19
PROVIDERS: ATTEND Internal Medicine Medical Oncology
DX: I26.99 Other pulmonary embolism without acute cor pulmonale (principal); Z79.01 Long term (current) use of anticoagulants

== ENCOUNTER → 2022-02-11 | Outpatient (REF) | payer OTHER, MEDICAID ==
[~2022-02-11] MED LIST changes: +BETA0.0543; +ONDA4TAB6; +OXCA150T21; +TRUL10IN; +UBRO50TA PO
[2022-02-11 17:50] LABS: HEMOGLOBIN A1c 9.2 %
== END ==
LOC: M SFHCADAM 14:31
PROVIDERS: ATTEND Family Medicine
DX: E11.69 Type 2 diabetes mellitus with other specified complication (principal)

== ENCOUNTER → 2022-03-19 | Outpatient (REF) | payer OTHER, MEDICAID | LOC: M LAB REF 16:47 | PROVIDERS: ATTEND Otolaryngology | DX: K13.79 Other lesions of oral mucosa (principal) ==

== ENCOUNTER → 2022-03-23 | Outpatient (REF) | payer OTHER, MEDICAID ==
[2022-03-23 13:53] LABS: BLOOD UREA NITROGEN 8 MG/DL (7-18); CARBON DIOXIDE LEVEL 27 MEQ/L (21-32); CHLORIDE LEVEL 104 MEQ/L (98-107); CREATININE FOR GFR 1.02 MG/DL (0.55-1.30); GLOMERULAR FILTRATION RATE > 60.0 (>60); GLUCOSE, FASTING 141 MG/DL (70-100); SODIUM LEVEL 136 MEQ/L (136-145)
[2022-03-23 13:54] LABS: ALBUMIN 3.6 GM/DL (3.2-5.2); ALT/SGPT 39 U/L (12-78); BILIRUBIN,TOTAL 0.2 MG/DL (0.2-1.0); CALCIUM LEVEL 9.2 MG/DL (8.5-10.1); NT-PRO BNP 22 PG/ML (<125); TOTAL PROTEIN 7.6 GM/DL (6.4-8.2)
[2022-03-23 14:30] LABS: HEMOGLOBIN A1c 8.1 %
[2022-03-23 17:41] LABS: BASO # 0.1 10^3/uL (0.0-0.2); BASO % 0.7 % (0.0-1.0); EOS # 0.2 10^3/uL (0.0-0.5); EOS % 1.6 % (0.0-3.0); HEMATOCRIT 43.3 % (36.0-47.0); HEMOGLOBIN 13.2 g/dl (12.0-15.5); LYMPH # 2.5 10^3/uL (1.5-5.0); LYMPH % 20.4 % (24.0-44.0); MEAN CORPUSCULAR HGB CONC 30.5 g/dl (32.0-36.5); MEAN CORPUSCULAR VOLUME 82.2 fl (80.0-96.0); MONO # 0.8 10^3/uL (0.0-0.8); MONO % 6.4 % (2.0-8.0); NEUTROPHILS # 8.6 10^3/uL (1.5-8.5); NEUTROPHILS % 70.4 % (36.0-66.0); PLATELET COUNT, AUTOMATED 396 10^3/uL (150-450); RED BLOOD COUNT 5.27 10^6/uL (4.00-5.40); WHITE BLOOD COUNT 12.2 10^3/uL (4.0-10.0)
== END ==
LOC: M SFHCADAM 10:37
PROVIDERS: ATTEND Family Medicine
DX: R06.09 Other forms of dyspnea (principal); E11.69 Type 2 diabetes mellitus with other specified complication

== ENCOUNTER → 2022-03-23 | Outpatient (CLI) | payer OTHER, MEDICAID | LOC: M ADAMS 10:54 → M LAB 10:54 | PROVIDERS: ATTEND Family Medicine | DX: R06.09 Other forms of dyspnea (principal) ==

== ENCOUNTER → 2022-03-25 | Outpatient (CLI) | payer OTHER ==
[~2022-03-25] MED LIST changes: +ISOVUE-370 76% 100ML VIAL As Ordered ONE
== END ==
LOC: M RAD 07:40
PROVIDERS: ATTEND Family Medicine
DX: R60.9 Edema, unspecified (principal); R06.09 Other forms of dyspnea; K44.9 Diaphragmatic hernia without obstruction or gangrene
CPT/HCPCS: 71275; 93971; Q9967

== ENCOUNTER → 2022-04-15 | Outpatient (CLI) | payer OTHER ==
[~2022-04-15] MED LIST changes: -ISOVUE-370 76% 100ML VIAL As Ordered ONE
== END ==
LOC: M CARPUL 13:12
PROVIDERS: ATTEND Family Medicine
DX: R06.09 Other forms of dyspnea (principal)

== ENCOUNTER → 2022-05-19 | Outpatient (REF) | payer OTHER, MEDICAID ==
[~2022-05-19] MED LIST changes: +DULO30CA9 PO; +VENL37TA
== END ==
LOC: M SFHCADAM 15:59
PROVIDERS: ATTEND Family Medicine
DX: R05.1 Acute cough (principal)

== ENCOUNTER → 2022-05-20 | Outpatient (CLI) | payer OTHER | LOC: M RAD 08:28 | PROVIDERS: ATTEND Family Medicine | DX: R22.31 Localized swelling, mass and lump, right upper limb (principal); M79.89 Other specified soft tissue disorders ==

== ENCOUNTER → 2022-06-22 | Outpatient (REF) | payer OTHER, MEDICAID ==
[2022-06-22 19:19] LABS: ALBUMIN 3.3 G/DL (3.2-5.2); ALKALINE PHOSPHATASE 104 U/L (46-116); ALT/SGPT 22 U/L (7.0-40); AST/SGOT 17 U/L (<34); BILIRUBIN,TOTAL < 0.2 MG/DL (0.3-1.2); BLOOD UREA NITROGEN 10 MG/DL (9-23); CALCIUM LEVEL 9.2 MG/DL (8.5-10.1); CARBON DIOXIDE LEVEL 26 MMOL/L (20-31); CHLORIDE LEVEL 104 MMOL/L (98-107); CREATININE FOR GFR 0.79 MG/DL (0.55-1.30); GLOMERULAR FILTRATION RATE > 60.0 (>60); GLUCOSE, FASTING 123 MG/DL (60-100); SODIUM LEVEL 139 MMOL/L (136-145); TOTAL PROTEIN 6.7 G/DL (5.7-8.2)
[2022-06-22 19:21] LABS: HEMOGLOBIN A1c 6.5 % (4.0-6.0)
== END ==
LOC: M SFHCADAM 11:14
PROVIDERS: ATTEND Family Medicine
DX: E11.69 Type 2 diabetes mellitus with other specified complication (principal)

== ENCOUNTER → 2022-06-22 | Outpatient (CLI) | payer OTHER, MEDICAID ==
[2022-06-22 18:59] LABS: BASO # 0.1 10^3/uL (0.0-0.2); BASO % 0.6 % (0.0-1.0); EOS # 0.2 10^3/uL (0.0-0.5); EOS % 1.5 % (0.0-3.0); HEMATOCRIT 40.8 % (36.0-47.0); HEMOGLOBIN 12.5 g/dl (12.0-15.5); LYMPH # 2.7 10^3/uL (1.5-5.0); LYMPH % 19.2 % (24.0-44.0); MEAN CORPUSCULAR HEMOGLOBIN 25.7 pg (27.0-33.0); MEAN CORPUSCULAR HGB CONC 30.6 g/dl (32.0-36.5); MONO # 0.8 10^3/uL (0.0-0.8); MONO % 5.4 % (2.0-8.0); NEUTROPHILS % 71.8 % (36.0-66.0); PLATELET COUNT, AUTOMATED 354 10^3/uL (150-450); RED BLOOD COUNT 4.86 10^6/uL (4.00-5.40)
[2022-06-25 15:09] LABS: ANTI THROMBIN 3 ANTIGEN IMMUNO 90 % (72-124); ANTI THROMBIN 3 FUNCT ACTIVITY 120 % (75-135)
== END ==
LOC: M LABDRWAD 11:24
PROVIDERS: ATTEND Internal Medicine Hematology & Oncology
DX: I26.99 Other pulmonary embolism without acute cor pulmonale (principal); I82.409 Acute embolism and thrombosis of unspecified deep veins of unspecified lower extremity; D72.829 Elevated white blood cell count, unspecified

== ENCOUNTER → 2022-08-10 | Outpatient (CLI) | payer OTHER, MEDICAID | LOC: M LABDRWAD 14:25 | PROVIDERS: ATTEND Surgery | DX: Z53.20 Procedure and treatment not carried out because of patient's decision for unspecified reasons (principal) ==

== ENCOUNTER → 2023-08-05 | Outpatient (CLI) | payer MEDICARE, MEDICAID ==
[~2023-08-05] MED LIST changes: +B-122500 PO; +FURO20TA2; -GABA-283 PO; +GABA-284 PO
== END ==
LOC: M PAIN 08:00
PROVIDERS: ATTEND Nurse Practitioner Family
DX: G43.719 Chronic migraine without aura, intractable, without status migrainosus (principal); E11.9 Type 2 diabetes mellitus without complications; F32.A Depression, unspecified; G47.30 Sleep apnea, unspecified; F17.210 Nicotine dependence, cigarettes, uncomplicated; Z79.01 Long term (current) use of anticoagulants; Z79.899 Other long term (current) drug therapy; Z86.73 Personal history of transient ischemic attack (TIA), and cerebral infarction without residual deficits; Z88.8 Allergy status to other drugs, medicaments and biological substances; Z91.040 Latex allergy status

== ENCOUNTER → 2023-09-21 | Outpatient (REF) | payer MEDICARE, MEDICAID | LOC: M SFHCADAM 11:19 | PROVIDERS: ATTEND Family Medicine | DX: R21 Rash and other nonspecific skin eruption (principal) ==

== ENCOUNTER → 2023-09-23 | Outpatient (REF) | payer MEDICARE, MEDICAID | LOC: M SFHCADAM 13:18 | PROVIDERS: ATTEND Family Medicine | DX: R21 Rash and other nonspecific skin eruption (principal); Z72.89 Other problems related to lifestyle; Z11.3 Encounter for screening for infections with a predominantly sexual mode of transmission ==

== ENCOUNTER → 2023-10-12 | Outpatient (CLI) | payer MEDICARE, MEDICAID ==
[~2023-10-12] MED LIST changes: +BOTOX THERAPEUTIC 100 UNIT VIAL IM ONE; +diazePAM 5MG TABLET As Ordered ONE; +oxyCODONE 5MG TAB As Ordered ONE
== END ==
LOC: M PAIN 13:00
PROVIDERS: ATTEND Anesthesiology
DX: G43.709 Chronic migraine without aura, not intractable, without status migrainosus (principal); G89.29 Other chronic pain; E11.9 Type 2 diabetes mellitus without complications; L30.9 Dermatitis, unspecified; F32.A Depression, unspecified; G47.30 Sleep apnea, unspecified; F17.210 Nicotine dependence, cigarettes, uncomplicated; Z79.01 Long term (current) use of anticoagulants; Z86.73 Personal history of transient ischemic attack (TIA), and cerebral infarction without residual deficits; Z79.899 Other long term (current) drug therapy; Z88.8 Allergy status to other drugs, medicaments and biological substances; Z91.040 Latex allergy status
CPT/HCPCS: 64615; J0585

== ENCOUNTER → 2023-10-25 | Outpatient (REF) | payer MEDICARE, MEDICAID ==
[~2023-10-25] MED LIST changes: -BOTOX THERAPEUTIC 100 UNIT VIAL IM ONE; -diazePAM 5MG TABLET As Ordered ONE; -oxyCODONE 5MG TAB As Ordered ONE
== END ==
LOC: M SFHCPLAZ 15:38
PROVIDERS: ATTEND Nurse Practitioner Family
DX: L40.3 Pustulosis palmaris et plantaris (principal)

== ENCOUNTER 2023-10-30 19:45 | Emergency (ER) | payer MEDICARE, MEDICAID ==
[~2023-10-30] VITALS: Ht 167.6 cm; Wt 77.2 kg
[2023-10-30 20:25] LABS: BASO # 0.1 10^3/uL (0.0-0.2); BASO % 0.7 % (0.0-1.0); EOS # 0.1 10^3/uL (0.0-0.5); HEMATOCRIT 37.3 % (36.0-47.0); HEMOGLOBIN 12.5 g/dl (12.0-15.5); LYMPH # 2.6 10^3/uL (1.5-5.0); LYMPH % 22.7 % (24.0-44.0); MEAN CORPUSCULAR HEMOGLOBIN 30.2 pg (27.0-33.0); MEAN CORPUSCULAR HGB CONC 33.5 g/dl (32.0-36.5); MEAN CORPUSCULAR VOLUME 90.1 fl (80.0-96.0); MONO # 0.7 10^3/uL (0.0-0.8); MONO % 5.9 % (2.0-8.0); NEUTROPHILS % 69.5 % (36.0-66.0); PLATELET COUNT, AUTOMATED 267 10^3/uL (150-450); RED BLOOD COUNT 4.14 10^6/uL (4.00-5.40); WHITE BLOOD COUNT 11.5 10^3/uL (4.0-10.0)
[2023-10-30 20:53] LABS: CK-MB VALUE MASS < 1.0 NG/ML (<3.6)
[2023-10-30 20:55] LABS: BLOOD UREA NITROGEN 12 MG/DL (9-23); CALCIUM LEVEL 8.7 MG/DL (8.5-10.1); CARBON DIOXIDE LEVEL 28 MMOL/L (20-31); CHLORIDE LEVEL 110 MMOL/L (98-107); CREATININE FOR GFR 0.83 MG/DL (0.55-1.30); GLOMERULAR FILTRATION RATE > 60.0 (>60); GLUCOSE, FASTING 87 MG/DL (60-100); POTASSIUM SERUM 3.9 MMOL/L (3.5-5.1); SODIUM LEVEL 142 MMOL/L (136-145)
[2023-10-30] MEDS ORDERED: ISOVUE-370 76% 100ML VIAL As Ordered ONE (21:00)
[2023-10-30] MEDS: NS 1,000 ML IV ONE (21:02)
[2023-10-30 21:07] LABS: CPK CREATINE PHOSPHOKINASE 160 U/L (34-145); MB/CK RELATIVE INDEX 0.62 (< OR =4)
[2023-10-30 21:33] LABS: INR 1.11; PROTHROMBIN TIME 13.9 SECONDS (12.5-14.5)
[2023-10-30 21:41] LABS: CK-MB VALUE MASS < 1.0 NG/ML (<3.6)
[2023-10-30 21:42] LABS: ALBUMIN 3.1 G/DL (3.2-5.2); ALKALINE PHOSPHATASE 108 U/L (46-116); ALT/SGPT 26 U/L (7.0-40); AST/SGOT 25 U/L (<34); BILIRUBIN,DIRECT < 0.1 MG/DL (<0.4); BILIRUBIN,TOTAL < 0.2 MG/DL (0.3-1.2); TOTAL PROTEIN 5.9 G/DL (5.7-8.2)
[2023-10-30 21:47] LABS: HCG, SERUM QUALITATIVE NEGATIVE (NEGATIVE)
[2023-10-30 21:48] LABS: CPK CREATINE PHOSPHOKINASE 144 U/L (34-145); MB/CK RELATIVE INDEX 0.69 (< OR =4)
[2023-10-30 22:00] VITALS: BP 104/59; TEMP 98.8; O2SAT 98
[2023-10-30] MEDS ORDERED: ASPI81TA26 PO (22:16)
== END 2023-10-30 22:36 | disposition home or self-care (01) ==
LOC: M ED 19:45 → EDBD 19:45 → M ED 22:36
DX: R07.9 Chest pain, unspecified (principal); F17.200 Nicotine dependence, unspecified, uncomplicated; Z98.84 Bariatric surgery status; Z86.79 Personal history of other diseases of the circulatory system; Z86.711 Personal history of pulmonary embolism; Z88.4 Allergy status to anesthetic agent; Z79.01 Long term (current) use of anticoagulants; Z79.52 Long term (current) use of systemic steroids; Z79.899 Other long term (current) drug therapy
CPT/HCPCS: 36415; 71045; 71275; 80048; 80076; 82550; 82553; 84484; 84703; 85025; 85610; 93005; 93041; 94760; 99285; Q9967

== ENCOUNTER → 2023-11-15 | Outpatient (REF) | payer MEDICARE, MEDICAID ==
[~2023-11-15] MED LIST changes: +ASPI81TA26 PO; +FLUO-365; -FLUO20CA22; +ONDA-282; -ONDA4TAB6
[2023-11-15 17:42] LABS: HEMATOCRIT 39.4 % (36.0-47.0); HEMOGLOBIN 12.9 g/dl (12.0-15.5); MEAN CORPUSCULAR HEMOGLOBIN 30.1 pg (27.0-33.0); MEAN CORPUSCULAR HGB CONC 32.7 g/dl (32.0-36.5); MEAN CORPUSCULAR VOLUME 91.8 fl (80.0-96.0); PLATELET COUNT, AUTOMATED 291 10^3/uL (150-450); RED BLOOD COUNT 4.29 10^6/uL (4.00-5.40); WHITE BLOOD COUNT 9.3 10^3/uL (4.0-10.0)
[2023-11-15 18:04] LABS: ERYTHROCYTE SEDIMENTATION RATE 23 mm/hr (0-20)
[2023-11-17 23:12] LABS: ANA (HEP2) Negative (.)
== END ==
LOC: M SFHCPLAZ 13:44
PROVIDERS: ATTEND Nurse Practitioner Family
DX: L40.3 Pustulosis palmaris et plantaris (principal)

== ENCOUNTER → 2023-11-29 | Outpatient (CLI) | payer MEDICARE, MEDICAID | LOC: M PAIN 10:00 | PROVIDERS: ATTEND Nurse Practitioner Family | DX: G43.719 Chronic migraine without aura, intractable, without status migrainosus (principal); G47.30 Sleep apnea, unspecified; K76.0 Fatty (change of) liver, not elsewhere classified; F17.200 Nicotine dependence, unspecified, uncomplicated; Z98.84 Bariatric surgery status; Z86.711 Personal history of pulmonary embolism; Z79.01 Long term (current) use of anticoagulants; Z79.51 Long term (current) use of inhaled steroids; Z79.899 Other long term (current) drug therapy; Z88.8 Allergy status to other drugs, medicaments and biological substances; Z91.040 Latex allergy status ==

== ENCOUNTER → 2024-01-10 | Outpatient (REF) | payer MEDICARE, MEDICAID | LOC: M SFHCPLAZ 16:11 | PROVIDERS: ATTEND Nurse Practitioner Family | DX: L40.3 Pustulosis palmaris et plantaris (principal) ==

== ENCOUNTER → 2024-01-12 | Outpatient (REF) | payer MEDICARE, MEDICAID | LOC: M SFHCPLAZ 15:18 | PROVIDERS: ATTEND Nurse Practitioner Family | DX: L40.3 Pustulosis palmaris et plantaris (principal) ==

== ENCOUNTER → 2024-02-01 | Outpatient (CLI) | payer MEDICARE, MEDICAID ==
[~2024-02-01] MED LIST changes: +BOTOX THERAPEUTIC 100 UNIT VIAL IM ONE; +ONDANSETRON 4MG ORAL DISINTEGRATING TAB As Ordered ONE; +diazePAM 5MG TABLET As Ordered ONE; +oxyCODONE 5MG TAB As Ordered ONE
== END ==
LOC: M PAIN 10:00
PROVIDERS: ATTEND Anesthesiology
DX: G43.719 Chronic migraine without aura, intractable, without status migrainosus (principal); E28.2 Polycystic ovarian syndrome; E11.9 Type 2 diabetes mellitus without complications; L30.9 Dermatitis, unspecified; K76.0 Fatty (change of) liver, not elsewhere classified; F32.A Depression, unspecified; F17.210 Nicotine dependence, cigarettes, uncomplicated; G47.30 Sleep apnea, unspecified; Z79.01 Long term (current) use of anticoagulants; Z86.711 Personal history of pulmonary embolism; Z79.899 Other long term (current) drug therapy; Z88.8 Allergy status to other drugs, medicaments and biological substances; Z91.040 Latex allergy status
CPT/HCPCS: 64615; J0585

== ENCOUNTER → 2024-02-10 | Outpatient (REF) | payer MEDICARE, MEDICAID ==
[~2024-02-10] MED LIST changes: -BOTOX THERAPEUTIC 100 UNIT VIAL IM ONE; +GABA-1490; +GABA-1490 PO; -GABA600T4; -GABA600T4 PO; +GUSE100A SQ; -ONDANSETRON 4MG ORAL DISINTEGRATING TAB As Ordered ONE; +VITA100093; -diazePAM 5MG TABLET As Ordered ONE; -oxyCODONE 5MG TAB As Ordered ONE
[2024-02-10 13:48] LABS: CHOLESTEROL RISK RATIO 3.84 (<5); HDL CHOLESTEROL 61.4 MG/DL (>40); LDL CHOLESTEROL 145.4 MG/DL (<100); NON-HDL-C 174.6 MG/DL
[2024-02-10 14:14] LABS: HEMOGLOBIN A1c 5.1 % (4.0-6.0)
== END ==
LOC: M LABDRWAD 12:46
PROVIDERS: ATTEND Internal Medicine Cardiovascular Disease
DX: E78.5 Hyperlipidemia, unspecified (principal); R73.03 Prediabetes

== ENCOUNTER → 2024-02-10 | Outpatient (REF) | payer MEDICARE, MEDICAID ==
[~2024-02-10] MED LIST changes: -GUSE100A SQ; -VITA100093
[2024-02-10 14:05] LABS: HEPATITIS B SURFACE ANTIGEN NEGATIVE (NEGATIVE)
[2024-02-10 14:19] LABS: HIV 1&2 SCREEN NEGATIVE (NEGATIVE)
[2024-02-10 14:26] LABS: HEPATITIS B CORE ANTIBODY IGM NEGATIVE (NEGATIVE); HEPATITIS C VIRUS ABY INDEX < 0.02 INDEX (<0.8)
[2024-02-15 14:42] LABS: QuantiFERON-TB Gold Plus NEGATIVE (NEGATIVE)
== END ==
LOC: M SFHCPLAZ 10:53
PROVIDERS: ATTEND Nurse Practitioner Family
DX: Z01.89 Encounter for other specified special examinations (principal); L40.3 Pustulosis palmaris et plantaris; E78.5 Hyperlipidemia, unspecified; R73.03 Prediabetes

== ENCOUNTER 2024-02-29 12:18 | Emergency (ER) | payer MEDICAID, MEDICARE ==
[~2024-02-29] VITALS: Ht 162.6 cm; Wt 79.9 kg
[2024-02-29] MEDS ORDERED: GUSE100A SQ (12:42)
[2024-02-29] MEDS ORDERED: VITA100093 (12:42)
[2024-02-29] MEDS ORDERED: ISOVUE-370 76% 100ML VIAL As Ordered ONE (13:39)
[2024-02-29 13:43] LABS: BASO # 0.1 10^3/uL (0.0-0.2); BASO % 0.7 % (0.0-1.0); EOS # 0.1 10^3/uL (0.0-0.5); EOS % 1.3 % (0.0-3.0); HEMATOCRIT 38.6 % (36.0-47.0); HEMOGLOBIN 12.6 g/dl (12.0-15.5); LYMPH # 2.3 10^3/uL (1.5-5.0); LYMPH % 22.7 % (24.0-44.0); MEAN CORPUSCULAR HEMOGLOBIN 29.2 pg (27.0-33.0); MEAN CORPUSCULAR HGB CONC 32.6 g/dl (32.0-36.5); MEAN CORPUSCULAR VOLUME 89.6 fl (80.0-96.0); MONO # 0.7 10^3/uL (0.0-0.8); MONO % 6.6 % (2.0-8.0); NEUTROPHILS # 6.9 10^3/uL (1.5-8.5); NEUTROPHILS % 68.4 % (36.0-66.0); PLATELET COUNT, AUTOMATED 243 10^3/uL (150-450); RED BLOOD COUNT 4.31 10^6/uL (4.00-5.40)
[2024-02-29 13:54] LABS: INR 1.01
[2024-02-29 14:15] LABS: ALBUMIN 3.6 G/DL (3.2-5.2); ALKALINE PHOSPHATASE 102 U/L (46-116); ALT/SGPT 25 U/L (7.0-40); AST/SGOT 13 U/L (<34); BILIRUBIN,DIRECT < 0.1 MG/DL (<0.4); BILIRUBIN,TOTAL 0.2 MG/DL (0.3-1.2); BLOOD UREA NITROGEN 12 MG/DL (9-23); CALCIUM LEVEL 8.8 MG/DL (8.5-10.1); CARBON DIOXIDE LEVEL 26 MMOL/L (20-31); CHLORIDE LEVEL 108 MMOL/L (98-107); CREATININE FOR GFR 0.88 MG/DL (0.55-1.30); GLOMERULAR FILTRATION RATE > 60.0 (>58); GLUCOSE, FASTING 91 MG/DL (60-100); MAGNESIUM LEVEL 2.2 MG/DL (1.8-2.4); POTASSIUM SERUM 3.9 MMOL/L (3.5-5.1); SODIUM LEVEL 139 MMOL/L (136-145); TOTAL PROTEIN 6.8 G/DL (5.7-8.2)
[2024-02-29 15:20] VITALS: BP 116/64; TEMP 98.2; O2SAT 100
== END 2024-02-29 16:40 | disposition home or self-care (01) ==
LOC: M ED 12:18
DX: R42 Dizziness and giddiness (principal); F17.200 Nicotine dependence, unspecified, uncomplicated; J45.909 Unspecified asthma, uncomplicated; G47.33 Obstructive sleep apnea (adult) (pediatric); K76.0 Fatty (change of) liver, not elsewhere classified; F90.9 Attention-deficit hyperactivity disorder, unspecified type; Z86.79 Personal history of other diseases of the circulatory system; Z88.4 Allergy status to anesthetic agent; Z98.84 Bariatric surgery status; Z79.01 Long term (current) use of anticoagulants; Z79.82 Long term (current) use of aspirin; Z79.83 Long term (current) use of bisphosphonates; Z79.899 Other long term (current) drug therapy; Z87.442 Personal history of urinary calculi
CPT/HCPCS: 36415; 70450; 70496; 70498; 71045; 80047; 80048; 80076; 83735; 85025; 85610; 85730; 93005; 93041; 94760; 99285; Q9967

== ENCOUNTER → 2024-03-14 | Outpatient (CLI) | payer MEDICARE, MEDICAID ==
[~2024-03-14] MED LIST changes: +GUSE100A SQ; +VITA100093
== END ==
LOC: M PAIN 10:15
PROVIDERS: ATTEND Nurse Practitioner Family
DX: G89.29 Other chronic pain (principal); G43.709 Chronic migraine without aura, not intractable, without status migrainosus; E11.9 Type 2 diabetes mellitus without complications; F32.A Depression, unspecified; G47.30 Sleep apnea, unspecified; Z86.73 Personal history of transient ischemic attack (TIA), and cerebral infarction without residual deficits; Z86.711 Personal history of pulmonary embolism; F17.210 Nicotine dependence, cigarettes, uncomplicated; Z79.899 Other long term (current) drug therapy; Z88.8 Allergy status to other drugs, medicaments and biological substances; Z91.040 Latex allergy status

== ENCOUNTER → 2024-03-24 | Outpatient (CLI) | payer MEDICARE, MEDICAID | LOC: M PAIN 15:00 | PROVIDERS: ATTEND Nurse Practitioner Family | DX: M79.2 Neuralgia and neuritis, unspecified (principal); Z86.73 Personal history of transient ischemic attack (TIA), and cerebral infarction without residual deficits; M79.601 Pain in right arm; M79.604 Pain in right leg; G89.29 Other chronic pain; E11.9 Type 2 diabetes mellitus without complications; K76.0 Fatty (change of) liver, not elsewhere classified; F32.A Depression, unspecified; G47.30 Sleep apnea, unspecified; Z86.711 Personal history of pulmonary embolism; E28.2 Polycystic ovarian syndrome; Z79.899 Other long term (current) drug therapy; F17.210 Nicotine dependence, cigarettes, uncomplicated; Z88.8 Allergy status to other drugs, medicaments and biological substances; Z91.040 Latex allergy status ==

== ENCOUNTER → 2024-04-26 | Outpatient (CLI) | payer MEDICARE, MEDICAID | LOC: M PLAIMG 08:21 | PROVIDERS: ATTEND Nurse Practitioner Family | DX: M79.601 Pain in right arm (principal); M79.604 Pain in right leg ==

== ENCOUNTER → 2024-04-27 | Outpatient (CLI) | payer MEDICARE, MEDICAID | LOC: M RAD 11:52 | PROVIDERS: ATTEND Nurse Practitioner Family | DX: M79.601 Pain in right arm (principal); M79.604 Pain in right leg; M50.221 Other cervical disc displacement at C4-C5 level; M50.222 Other cervical disc displacement at C5-C6 level ==

== ENCOUNTER → 2024-05-30 | Outpatient (CLI) | payer MEDICARE, MEDICAID ==
[~2024-05-30] MED LIST changes: +BOTOX THERAPEUTIC 100 UNIT VIAL IM ONE; +ONDANSETRON 4MG ORAL DISINTEGRATING TAB As Ordered ONE; +diazePAM 5MG TABLET As Ordered ONE; +oxyCODONE 5MG TAB As Ordered ONE
== END ==
LOC: M PAIN 09:30
PROVIDERS: ATTEND Anesthesiology
DX: G43.709 Chronic migraine without aura, not intractable, without status migrainosus (principal); L20.84 Intrinsic (allergic) eczema; E66.9 Obesity, unspecified; E11.9 Type 2 diabetes mellitus without complications; F32.A Depression, unspecified; G47.30 Sleep apnea, unspecified; F17.210 Nicotine dependence, cigarettes, uncomplicated; Z79.899 Other long term (current) drug therapy; Z88.8 Allergy status to other drugs, medicaments and biological substances; Z91.040 Latex allergy status; Z68.30 Body mass index [BMI] 30.0-30.9, adult
CPT/HCPCS: 64615; J0585

== ENCOUNTER → 2024-06-13 | Outpatient (REF) | payer MEDICARE, MEDICAID ==
[~2024-06-13] MED LIST changes: -BOTOX THERAPEUTIC 100 UNIT VIAL IM ONE; -ONDANSETRON 4MG ORAL DISINTEGRATING TAB As Ordered ONE; -diazePAM 5MG TABLET As Ordered ONE; -oxyCODONE 5MG TAB As Ordered ONE
== END ==
LOC: M SFHCADAM 16:37
PROVIDERS: ATTEND Family Medicine
DX: R05.1 Acute cough (principal)

== ENCOUNTER → 2024-07-10 | Outpatient (CLI) | payer MEDICARE, MEDICAID | LOC: M PAIN 17:30 | PROVIDERS: ATTEND Nurse Practitioner Family | DX: M79.2 Neuralgia and neuritis, unspecified (principal); Z86.73 Personal history of transient ischemic attack (TIA), and cerebral infarction without residual deficits; M79.601 Pain in right arm; M79.604 Pain in right leg; G43.709 Chronic migraine without aura, not intractable, without status migrainosus; E11.9 Type 2 diabetes mellitus without complications; Z86.711 Personal history of pulmonary embolism; F17.210 Nicotine dependence, cigarettes, uncomplicated; Z79.899 Other long term (current) drug therapy; Z88.8 Allergy status to other drugs, medicaments and biological substances; Z91.040 Latex allergy status ==

== ENCOUNTER → 2024-09-04 | Outpatient (REF) | payer MEDICARE, MEDICAID ==
[2024-09-04 13:53] LABS: BASO # 0.1 10^3/uL (0.0-0.2); BASO % 1.2 % (0.0-1.0); EOS # 0.2 10^3/uL (0.0-0.5); EOS % 1.6 % (0.0-3.0); HEMATOCRIT 41.9 % (36.0-47.0); HEMOGLOBIN 12.9 g/dl (12.0-15.5); LYMPH # 2.4 10^3/uL (1.5-5.0); LYMPH % 26.3 % (24.0-44.0); MEAN CORPUSCULAR HEMOGLOBIN 27.6 pg (27.0-33.0); MEAN CORPUSCULAR HGB CONC 30.8 g/dl (32.0-36.5); MEAN CORPUSCULAR VOLUME 89.7 fl (80.0-96.0); MONO # 0.6 10^3/uL (0.0-0.8); MONO % 6.8 % (2.0-8.0); NEUTROPHILS # 5.8 10^3/uL (1.5-8.5); NEUTROPHILS % 63.7 % (36.0-66.0); PLATELET COUNT, AUTOMATED 278 10^3/uL (150-450); RED BLOOD COUNT 4.67 10^6/uL (4.00-5.40); WHITE BLOOD COUNT 9.2 10^3/uL (4.0-10.0)
== END ==
LOC: M SFHCADAM 09:49
PROVIDERS: ATTEND Family Medicine
DX: Z00.00 Encounter for general adult medical examination without abnormal findings (principal); E11.69 Type 2 diabetes mellitus with other specified complication

== ENCOUNTER → 2024-09-05 | Outpatient (REF) | payer MEDICARE, MEDICAID ==
[2024-09-05 15:15] LABS: ALBUMIN 3.6 G/DL (3.2-5.2); ALKALINE PHOSPHATASE 84 U/L (35-104); ALT/SGPT 16 U/L (7.0-40); AST/SGOT 15 U/L (<34); BILIRUBIN,TOTAL 0.2 MG/DL (0.3-1.2); BLOOD UREA NITROGEN 12 MG/DL (9-23); CALCIUM LEVEL 8.9 MG/DL (8.5-10.1); CARBON DIOXIDE LEVEL 26 MMOL/L (20-31); CHLORIDE LEVEL 110 MMOL/L (98-107); CHOLESTEROL LEVEL 207 MG/DL (<200); CREATININE FOR GFR 0.85 MG/DL (0.55-1.30); GLOMERULAR FILTRATION RATE > 60.0 (>58); GLUCOSE, FASTING 90 MG/DL (60-100); LDL CHOLESTEROL 140.8 MG/DL (<100); POTASSIUM SERUM 4.4 MMOL/L (3.5-5.1); SODIUM LEVEL 142 MMOL/L (136-145); TOTAL PROTEIN 6.6 G/DL (5.7-8.2); TRIGLYCERIDES LEVEL 106 MG/DL (<150)
== END ==
LOC: M SFHCADAM 07:25
PROVIDERS: ATTEND Family Medicine
DX: Z00.00 Encounter for general adult medical examination without abnormal findings (principal); Z79.899 Other long term (current) drug therapy

== ENCOUNTER → 2025-01-18 | Outpatient (REF) | payer MEDICARE ==
[2025-01-18 13:01] LABS: PLATELET COUNT, AUTOMATED 272 10^3/uL (150-450)
[2025-01-18 13:04] LABS: INR 0.87
[2025-01-18 13:08] LABS: ALT/SGPT 78.0 U/L (7.0-40); AST/SGOT 122.0 U/L (<34); CALCIUM LEVEL 8.7 MG/DL (8.5-10.1); CARBON DIOXIDE LEVEL 27.0 MMOL/L (20-31); CHLORIDE LEVEL 107.0 MMOL/L (98-107); CREATININE FOR GFR 0.93 MG/DL (0.55-1.30); GLOMERULAR FILTRATION RATE 79.2 (>58); POTASSIUM SERUM 4.7 MMOL/L (3.5-5.1); SODIUM LEVEL 141.0 MMOL/L (136-145)
== END ==
LOC: M SFHCADAM 10:29
PROVIDERS: ATTEND Family Medicine
DX: Z01.818 Encounter for other preprocedural examination (principal)

== ENCOUNTER → 2025-05-02 | Outpatient (REF) | payer MEDICARE ==
[~2025-05-02] MED LIST changes: +CARB-19 PO; -CARB1TAB20 PO
[2025-05-02 14:37] LABS: ESTIMATED AVERAGE GLUCOSE 108.0 MG/DL (60-110)
[2025-05-02 14:50] LABS: ALT/SGPT 22.0 U/L (7.0-40); AST/SGOT 21.0 U/L (<34); CALCIUM LEVEL 8.9 MG/DL (8.5-10.1); CARBON DIOXIDE LEVEL 30.0 MMOL/L (20-31); CHLORIDE LEVEL 107.0 MMOL/L (98-107); CREATININE FOR GFR 0.91 MG/DL (0.55-1.30); GLOMERULAR FILTRATION RATE 81.3 (>58); IRON (FE) 27.0 UG/DL (50-170); PERCENT SATURATION 6.5 % (13.2-45.0); POTASSIUM SERUM 4.8 MMOL/L (3.5-5.1); SODIUM LEVEL 143.0 MMOL/L (136-145)
== END ==
LOC: M SFHCADAM 10:31
PROVIDERS: ATTEND Family Medicine
DX: E11.69 Type 2 diabetes mellitus with other specified complication (principal); L20.9 Atopic dermatitis, unspecified; Z79.899 Other long term (current) drug therapy; Z86.39 Personal history of other endocrine, nutritional and metabolic disease; L29.9 Pruritus, unspecified